=== PATIENT | female | born 1975 | race African-American/Black ===

== ENCOUNTER 2019-05-14 07:36 | Emergency (ER) | payer OTHER, SELFPAY ==
--- NOTE | ~2019-05-14 | XR_ITS ---
EXAMINATION: XR chest 2V DATE: 05/14/2019 08:43 INDICATION: Chest pain. TECHNIQUE: Frontal and lateral views of the chest were obtained. COMPARISON: Chest 2 views 11/17/2016 FINDINGS: The chest demonstrates clear lungs without pneumonia, pleural effusion, or pneumothorax. Th e heart size is normal. IMPRESSION: 1. No acute cardiopulmonary disease. Reviewed, dictated and finalized at location A. ARCHITECT
--- NOTE | ~2019-05-14 | CT_ITS ---
EXAMINATION: CTA chest PE protocol EXAM DATE: 05/14/2019 10:15 INDICATION: Shortness of breath with exertion. Chest pain. Heart skipping beats. Positive d-dimer. Ch est pain is left-sided under breast. TECHNIQUE: Spiral CTA of the chest (pulmonary arteries) was performed with 100 cc Omnipaque 350 intr avenous contrast injection. Images were acquired during the pulmonary arterial phase. Coronal maxi mum intensity projection 3D-reconstructions were created by the technologist on dedicated workstation . Axial, coronal and sagittal reformatted images were reviewed. The dose-length product (DLP) for t his examination was 509.67 mGy-cm. The exposure was tailored according to patient size (auto mA exp osure control), and iterative reconstruction (ASIR) was used as additional dose reduction technique. Comparison is made to prior examination from 01/29/2015. FINDINGS: Pulmonary arteries are well opacified and without intraluminal filling defects. No thora cic aortic dissection. The lungs are clear. There are no pleural or pericardial effusions. Trach eobronchial tree is patent. There is no mediastinal, hilar or axillary lymphadenopathy. There is no pneumothorax. Mild cardiomegaly. No evidence of coronary arterial calcification. Upper abdomen is unremarkable. There is thoracic spondylosis without osteoblastic or osteolytic lesions identifi ed. IMPRESSION: 1. Mild cardiomegaly. 2. No pulmonary emboli or acute findings. Reviewed, dictated and finalized at location B. TECHNICIAN
[2019-05-14 07:41] VITALS: BP 151/107; PULSE 79; RESP 14; O2SAT 100
[2019-05-14 07:47] VITALS: PULSE 69
--- NOTE | 2019-05-14 07:47 | ECG_ITS ---
Measurements Intervals [place] Rate: 69 P: 43 DE: 165 QRS: 37 QRSD: 99 T: 4 QT: 390 QTc: 419 Interpretive Statements SINUS RHYTHM WITH SINUS ARRHYTHMIA ST ELEVATION IN ANT/LAT LEADS- PROBABLY EARLY REPOLARIZATION BORDERLINE ST-T WAVE ABNORMALITY- INFERIOR LEADS BASELINE ARTIFACT- I, II, III, AVR, AVL, V1 BORDERLINE ECG Electronically Signed On 05-14-2019 11:46:57 CIGAR BANDER HAND by Med Grimaldo D.O.
[2019-05-14 08:06] LABS: Basophils Percent Auto 0.5 % (0.2-1.2); Eosinophils Absolute Auto 0.2 K/mm3 (0-0.3); Eosinophils Percent Auto 3.3 % (0-4.4); Hematocrit 36.3 % (37.0-47.0); Hemoglobin 11.5 g/dL (12.0-15.0); Immature Granulocyte Absolute 0.01 K/mm3 (0.00-0.031); Immature Granulocyte Percent A 0.2 % (0-0.5); Lymphocytes Absolute Auto 3.13 K/mm3 (0.9-3.2); Lymphocytes Percent Auto 49.2 % (18.3-44.2); Mean Corpuscular HGB Conc 31.7 g/dl (32-36); Mean Corpuscular Volume 97.8 fl (80-100); Mean Platelet Volume 10.1 fl (7.4-10.4); Monocytes Absolute Auto 0.5 K/mm3 (0.1-0.6); Monocytes Percent Auto 7.9 % (2.6-8.5); Neutrophils Absolute Auto 2.5 K/mm3 (1.3-6.7); Neutrophils Percent Auto 38.9 % (45.5-73.1); Platelet Count Result 326 k/mm3 (150-375); Red Blood Count 3.71 M/mm3 (4.2-5.4); Red Cell Distribution Width 12.2 % (11.5-14.5); White Blood Count 6.4 K/mm3 (4.5-10.0)
[2019-05-14] MEDS: ASPIRIN 81 MG CHEWABLE TABLET 324 MG PO (08:15)
[2019-05-14 08:16] LABS: INR 1.1; Prothrombin Time 13.4 Seconds (11.1-14.7)
[2019-05-14 08:17] LABS: Partial Thromboplastin Time 26.4 SECONDS (22.3-36.8)
[2019-05-14 08:20] LABS: Blood Urea Nitrogen 7 mg/dL (7-17); Calcium 9.1 mg/dL (8.4-10.2); Carbon Dioxide 27 mmol/L (22-30); Chloride 100 mmol/L (98-107); Estimated CRCL calculation 103 ml/min; Estimated Glomerular Filt Rate > 60; Glucose 115 mg/dL (65-105); Potassium 3.4 mmol/L (3.4-5.0); Sodium 136 mmol/L (137-145)
[2019-05-14 08:31] LABS: Troponin I < 0.012 ng/mL (0.000-0.034)
--- NOTE | 2019-05-14 08:38 | ECG_ITS ---
Measurements Intervals [place] Rate: 82 P: 56 [place]: 143 QRS: 31 QRSD: 98 T: 5 QT: 383 QTc: 448 Interpretive Statements SINUS RHYTHM DELAYED PRECORDIAL R/S TRANSITION ST ELEVATION IN HIGH LATERAL LEADS- PROBABLY EARLY REPOLARIZATION BORDERLINE ST-T WAVE ABNORMALITY- INFERIOR LEADS BASELINE ARTIFACT- I, II, III, AVR, AVL, AVF, V4 BORDERLINE ECG Electronically Signed On 05-14-2019 11:46:10 STRADDLE CARRIER OPERATOR by Med Grimaldo D.O.
--- NOTE | 2019-05-14 08:51 | ED.CHESTPAIN ---
HPI - Chest Pain General Chief Complaint: Chest Pain Stated Complaint: chest pain, heart skipping beats Time Seen by Provider: 05/14/19 08:37 Source: patient and RN notes reviewed Mode of arrival: ambulatory Limitations: no limitations History of Present Illness HPI narrative: Pt is a 43 y/o female with a Hx of HTN and DM, who presents to the ED with c/o lt sided chest pain starting last night. She notes that she has felt generally weak for the past several days. Pt states that she developed pain in the lt side of her chest last night. She notes that her pain radiates into her lt shoulder. Pt states that she experiences pain with breathing, but notes that her pain isn't aggravated upon taking a deep breath. She reports palpitations, dyspnea on exertion, and mild nausea accompanying her pain. She notes that her heart felt as though it was skipping beats. Pt also reports sinus congestion, but denies any fever, cough, vomiting, visual changes, LE edema, or LE pain. She states that she has no Hx of previous similar episodes, and notes that she is not currently taking any blood thinners. MD complaint: chest pain Onset (ago): day(s) (1) Prior episodes: No Pain location: left chest Pain radiation: left shoulder Associated symptoms: nausea, palpitations and other (dyspnea on exertion; generalized weakness; sinus congestion) Related Data Home Medications Medication Instructions Recorded Confirmed hydrochlorothiazide 25 mg tablet 25 mg PO DAILY 05/10/19 metformin 500 mg tablet 500 mg PO BID 05/10/19 atorvastatin 05/14/19 Allergies Allergy/AdvReac Type Severity Reaction Status Date / Time No Known Allergies Allergy Verified 04/24/19 20:57 Review of Systems Review of Systems: Narrative: CONSTITUTIONAL: Denies fever, chills, or sweats. ENT: Reports sinus congestion. Denies sore throat or otalgia. CARDIOVASCULAR: Reports lt sided chest pain radiating into lt shoulder. Reports palpitations. Denies edema. RESPIRATORY: Denies cough. Reports dyspnea on exertion. GASTROINTESTINAL: Denies abdominal pain, vomiting, or diarrhea. Reports nausea. NEUROLOGIC: Denies headache or numbness. Reports generalized weakness. All systems reviewed & are unremarkable except as noted in HPI and below PMFSH Family History Family History (Updated 08/20/18 @ 13:59 by DOCTOR UNKNOWN) Mother Hypertension Diabetes mellitus Family history of alcoholism Family history of Alzheimer's disease Social History Social History Smoking status: Never smoker Alcohol intake: never Gender identity (if verbalized by the patient): Female Comments PCP is Dr. Manuel. Exam Narrative: Exam Narrative: GENERAL: Well-appearing, well-nourished, and in no acute distress. HEAD: Normocephalic, atraumatic. EYES: PERRLA and EOMI. ENT: Nares clear, no rhinorrhea or epistaxis. Mucous membranes moist. NECK: Supple. CHEST: Clear to auscultation. No respiratory distress. No chest wall tenderness. HEART: Regular rate and rhythm. No murmur heard. Normal peripheral pulses. ABDOMEN: Soft, nontender, nondistended, normal active bowel sounds. EXTREMITIES: Normal range of motion. No edema. SKIN: Warm, dry, no rash. NEURO: No focal deficits. Alert and oriented. Course Course Emergency Course: Patient's EKG and labs are without significant high risk changes. Cardiac risk factors reviewed. Patient has a heart score of 2 based on labs and history. Patient is felt low risk for ACS and reasonable for further risk stratification testing as an outpatient. Pain was not sudden or maximal or onset without tearing or ripping quality. No other signs or symptoms to suggest aortic dissection. CTA was negative for pulmonary embolism. No pneumonia seen on evaluation today. Patient is felt to be a reasonable candidate for continued evaluation as an outpatient. Vital Signs Vital signs: Vital Signs Pulse Rate 79 05/14/19 07:41 Respiratory Rate
[2019-05-14 08:59] VITALS: BP 136/83; PULSE 75; RESP 16; O2SAT 100
[2019-05-14] MEDS: ONDANSETRON INJ 4 MG/2 ML VIAL IV PUSH (09:15)
[2019-05-14] MEDS: MORPHINE SULFATE 4 MG/ML INJ IV PUSH (09:16)
[2019-05-14] MEDS: ONDANSETRON INJ 4 MG/2 ML VIAL (09:30)
[2019-05-14 09:51] LABS: D Dimer 0.56 ug/mL (<0.48)
--- NOTE | 2019-05-14 10:13 | PC.NURSE ---
Patient in radiology at this time
[2019-05-14 10:37] VITALS: BP 125/80; PULSE 64; RESP 16; O2SAT 100
[2019-05-14 11:26] LABS: Troponin I < 0.012 ng/mL (0.000-0.034)
[2019-05-14 11:52] VITALS: BP 117/67; PULSE 74; RESP 17; TEMP 36.4; O2SAT 97
== END 2019-05-14 11:57 | disposition home or self-care (01) ==
PROVIDERS: Emergency Provider Emergency Medicine; PCP Internal Medicine
DX: I10 Essential (primary) hypertension (principal); E11.9 Type 2 diabetes mellitus without complications; R07.89 Other chest pain; Z79.84 Long term (current) use of oral hypoglycemic drugs; R94.31 Abnormal electrocardiogram [ECG] [EKG]
CPT/HCPCS: 36415; 71046; 71275; 80048; 84484; 85025; 85380; 85610; 85730; 93005; 96374; 96375; 99284; A9270; J2270; J2405; Q9967

== ENCOUNTER 2019-05-15 09:19 | Outpatient (CLI) | payer OTHER, SELFPAY ==
[2019-05-15 13:31] LABS: Immature Reticulocyte Fraction 9.7 % (3.0-15.9); Reticulocyte Hemoglobin Conten 35.7 pg (28.2-35.7); Reticulocyte Percent 1.67 % (0.7-4.3); Reticulocytes Absolute 0.06 B/L (32.2-175.7)
[2019-05-15 13:38] LABS: Iron 78 ug/dL (37-170)
[2019-05-15 13:39] LABS: Alanine Aminotransferase 58 U/L (4-35); Albumin Level 4.1 g/dL (3.5-5.1); Alkaline Phosphatase 86 U/L (38-126); Aspartate Amino Transferase 42 U/L (14-36); Bilirubin,Total 0.5 mg/dL (0.2-1.3); Lactate Dehydrogenase 577 U/L (313-618)
[2019-05-15 13:42] LABS: Hemoglobin A1C 5.9 % (<5.7)
[2019-05-15 13:48] LABS: Percent Iron Saturation 21 % (20-50)
[2019-05-15 14:10] LABS: Erythrocyte Sedimentation Rate 27 mm/hr (0-20)
[2019-05-15 18:22] LABS: Rheumatoid Factor < 8.6 IU/ML (<12)
[2019-05-15 20:32] LABS: Vitamin D 25 Hydroxy < 12.8 ng/mL
[2019-05-17 10:46] LABS: Anti Cyclic Citrullinated Pept <16 Units (<20)
[2019-05-17 12:59] LABS: CRP, High Sensitivity 1.6 mg/L (***)
== END 2019-05-15 09:20 | disposition home or self-care (01) ==
LOC: ANHWCLAB 09:25
PROVIDERS: PCP Internal Medicine; Visit Provider Internal Medicine
DX: R94.5 Abnormal results of liver function studies (principal); Z79.899 Other long term (current) drug therapy; D64.9 Anemia, unspecified; M25.561 Pain in right knee; M25.562 Pain in left knee; G89.29 Other chronic pain
CPT/HCPCS: 36415; 80076; 82306; 82607; 82728; 82746; 83036; 83540; 83550; 83615; 85046; 85652; 86038; 86141; 86200; 86430

== ENCOUNTER 2019-05-25 18:51 | Emergency (ER) | payer OTHER, SELFPAY ==
--- NOTE | ~2019-05-25 | XR_ITS ---
EXAMINATION: XR knee RT 3V DATE: 05/25/2019 19:32 INDICATION: Posterior right knee pain and swelling TECHNIQUE: Anteroposterior, oblique and crosstable lateral views of the right knee were obtained COMPARISON: 04/05/2019 FINDINGS: Alignment is normal. No fracture. No joint effusion/layering lipohemarthrosis. Soft tissues are unre markable. IMPRESSION: 1. Negative right knee radiographs. Reviewed, dictated and finalized at location A. WASHER
[2019-05-25 19:04] VITALS: BP 142/90; PULSE 81; RESP 17; TEMP 36.9; O2SAT 100
--- NOTE | 2019-05-25 19:26 | ED.LOWEXIN ---
HPI - Extremity Injury (Lower) General Chief Complaint: Extremity Injury, Lower <Myrna Bajwa PA-C - Last Filed: 05/25/19 20:48> Stated Complaint: rt leg pain and stiffness <ELIZ Carmichael Last Filed: 05/25/19 20:48> Source: patient <ELIZ Carmichael Last Filed: 05/25/19 20:48> Mode of arrival: wheelchair <ELIZ Carmichael Last Filed: 05/25/19 20:48> Limitations: no limitations <ELIZ Carmichael Last Filed: 05/25/19 20:48> History of Present Illness HPI Narrative: This is a 43 year old female that presents to the ER for right leg pain x 2 months. Reports pain in the back of her knee that feels like a pressure. Reports she has been seen here for this and by her PCP. Reports she has been taking [id number] pain medication with little relief. Reports decreased range of motion due to pain. Also reports some swelling. Denies fever, erythema, or numbness. <ELIZ Carmichael Last Filed: 05/25/19 20:48> Related Data Home Medications: Home Medications Medication Instructions Recorded Confirmed hydrochlorothiazide 25 mg tablet 25 mg PO DAILY 05/10/19 metformin 500 mg tablet 500 mg PO BID 05/10/19 atorvastatin 05/14/19 <Myrna Bajwa PA-C - Last Filed: 05/25/19 20:48> Allergies/Adverse Reactions: Allergies Allergy/AdvReac Type Severity Reaction Status Date / Time No Known Allergies Allergy Verified 05/25/19 19:19 <ELIZ Carmichael Last Filed: 05/25/19 20:48> Review of Systems Review of Systems: Narrative: CONSTITUTIONAL: Denies fever SKIN: Denies rash MUSCULOSKELETAL: Reports joint pain, and myalgia. NEUROLOGIC: Denies numbness <ELIZ Carmichael Last Filed: 05/25/19 20:48> All systems reviewed & are unremarkable except as noted in HPI and below <ELIZ Carmichael Last Filed: 05/25/19 20:48> PMFSH Family History Family History: Family History (Updated 08/20/18 @ 13:59 by DOCTOR UNKNOWN) Mother Hypertension Diabetes mellitus Family history of alcoholism Family history of Alzheimer's disease <Myrna Bajwa PA-C - Last Filed: 05/25/19 20:48> Social History Social History: Social History Smoking status: Never smoker Alcohol intake: never Gender identity (if verbalized by the patient): Female <Myrna Bajwa PA-C - Last Filed: 05/25/19 20:48> Exam Narrative: Exam Narrative: GENERAL: Well-appearing, obese, and in no acute distress. HEAD: Normocephalic, atraumatic. EYES: EOMI. EXTREMITIES: Normal range of motion. Mild swelling about the right knee. No erythema or warmth. Tender to palpation of the right calf. Normal sensation. Normal DP pulses SKIN: Warm, dry, no rash. NEURO: No focal deficits. Alert and oriented x3. PSYCH: Normal mood and affect <ELIZ Carmichael Last Filed: 05/25/19 20:48> Course Vital Signs Vital signs: Vital Signs Temperature 36.9 C 05/25/19 19:04 Pulse Rate 81 05/25/19 19:04 Respiratory Rate 17 05/25/19 19:04 Blood Pressure 142/90 H 05/25/19 19:04 Pulse Oximetry 100 05/25/19 19:04 Temperature 36.8 C 05/25/19 21:19 Pulse Rate 80 05/25/19 21:19 Respiratory Rate 18 05/25/19 21:19 Blood Pressure 132/78 05/25/19 21:19 Pulse Oximetry 98 05/25/19 21:19 <ELIZ Carmichael Last Filed: 05/25/19 20:48> Vital Signs Temperature 36.9 C 05/25/19 19:04 Pulse Rate 81 05/25/19 19:04 Respiratory Rate 17 05/25/19 19:04 Blood Pressure 142/90 H 05/25/19 19:04 Pulse Oximetry 100 05/25/19 19:04 Temperature 36.8 C 05/25/19 21:19 Pulse Rate 80 05/25/19 21:19 Respiratory Rate 18 05/25/19 21:19 Blood Pressure 132/78 05/25/19 21:19 Pulse Oximetry 98 05/25/19 21:19 <Anton Villanueva MD - Last Filed: 05/25/19 23:40> MDM - Extremity Injury (Lower) MDM Narrative Medical decision making narrative: Soumya
[2019-05-25 19:51] LABS: Basophils Percent Auto 0.5 % (0.2-1.2); Eosinophils Absolute Auto 0.3 K/mm3 (0-0.3); Eosinophils Percent Auto 3.4 % (0-4.4); Hematocrit 34.2 % (37.0-47.0); Immature Granulocyte Absolute 0.01 K/mm3 (0.00-0.031); Immature Granulocyte Percent A 0.1 % (0-0.5); Lymphocytes Absolute Auto 3.97 K/mm3 (0.9-3.2); Lymphocytes Percent Auto 53.4 % (18.3-44.2); Mean Corpuscular HGB Conc 32.2 g/dl (32-36); Mean Corpuscular Hemoglobin 30.6 pg (26-34); Mean Corpuscular Volume 95.3 fl (80-100); Monocytes Absolute Auto 0.6 K/mm3 (0.1-0.6); Monocytes Percent Auto 8.1 % (2.6-8.5); Neutrophils Absolute Auto 2.6 K/mm3 (1.3-6.7); Neutrophils Percent Auto 34.5 % (45.5-73.1); Platelet Count Result 370 k/mm3 (150-375); Red Blood Count 3.59 M/mm3 (4.2-5.4); White Blood Count 7.4 K/mm3 (4.5-10.0)
[2019-05-25] MEDS: KETOROLAC (*BKC) 60 MG/2 ML VIAL IM (19:51)
[2019-05-25 20:04] LABS: Blood Urea Nitrogen 9 mg/dL (7-17); Calcium 9.1 mg/dL (8.4-10.2); Carbon Dioxide 22 mmol/L (22-30); Chloride 107 mmol/L (98-107); Estimated CRCL calculation 90 ml/min; Estimated Glomerular Filt Rate > 60; Glucose 96 mg/dL (65-105); Potassium 3.6 mmol/L (3.4-5.0); Sodium 139 mmol/L (137-145)
[2019-05-25 20:14] LABS: Erythrocyte Sedimentation Rate 36 mm/hr (0-20)
[2019-05-25 20:30] LABS: CRP 0.5 mg/dL (<1.0)
--- NOTE | 2019-05-25 20:36 | PC.NURSE ---
PT refusing Lovenox, Pt told PA this information in the room.
[2019-05-25 21:19] VITALS: BP 132/78; PULSE 80; RESP 18; TEMP 36.8; O2SAT 98
== END 2019-05-25 21:21 | disposition home or self-care (01) ==
PROVIDERS: Physician Assistant; Emergency Provider Emergency Medicine; PCP Internal Medicine
DX: M25.561 Pain in right knee (principal)
CPT/HCPCS: 36415; 73562; 80048; 85025; 85380; 85652; 86140; 96372; 99283; J1885

== ENCOUNTER 2019-05-26 07:08 | Outpatient (CLI) | payer OTHER, SELFPAY ==
--- NOTE | ~2019-05-26 | US_ITS ---
US venous doppler LE RT DATE: 05/26/2019 08:01 INDICATION: Right lower extremity pain and swelling TECHNIQUE: Real-time imaging, color flow imaging and Doppler analysis of the right lower extremity ve ins COMPARISON: 11/19/2016 venous Doppler examination of right leg FINDINGS: There is an 11 x 20 x 9 mm popliteal cyst. The greater saphenous vein is patent. There is spontaneous and phasic flow and normal augmentation an d color flow signal and normal compression of the deep veins of the right lower extremity. IMPRESSION: No evidence of deep venous thrombosis of right lower extremity Small popliteal cyst Reviewed, dictated and finalized at Location A. Reviewed, dictated and finalized at location A. MATIC PRESSER
== END 2019-05-26 07:09 | disposition home or self-care (01) ==
PROVIDERS: PCP Internal Medicine; Visit Provider Internal Medicine
DX: M79.89 Other specified soft tissue disorders (principal); M79.661 Pain in right lower leg; M71.21 Synovial cyst of popliteal space [Baker], right knee
CPT/HCPCS: 93971

== ENCOUNTER 2019-06-09 07:05 | Outpatient (CLI) | payer OTHER, SELFPAY ==
--- NOTE | ~2019-06-09 | XR_ITS ---
XR knee RT min 4V 06/09/2019 08:00 INDICATION: Generalized knee pain PROCEDURE: 4 views right knee COMPARISON: 05/25/2019 FINDINGS: Fracture, dislocation or subluxation is not identified. No significant joint effusion. The soft tissues appear within normal limits. No foreign bodies are identified. IMPRESSION: 1: NO ACUTE BONE OR JOINT ABNORMALITY IDENTIFIED. Reviewed, dictated and finalized at location A. PLANT SUPERVISOR
--- NOTE | ~2019-06-09 | MR_ITS ---
EXAMINATION: MR knee RT wo con DATE: 06/09/2019 07:54 INDICATION: Right knee pain. TECHNIQUE: Magnetic resonance imaging (MRI) of the right knee was performed without intravenous contr ast. Sequences included axial PD-weighted FS FSE, coronal PD-weighted FSE and PD-weighted FS FSE, sag ittal PD-weighted FSE, and sagittal T2-weighted FS FSE. COMPARISON: Right knee radiographs 06/09/2019 FINDINGS: Medial compartment: Medial meniscus is normal. There is cartilage surface irregularity of tibial condyle. There is deep p artial thickness cartilage loss of femoral condyle involving the central articular surface. Lateral compartment: Lateral meniscus is normal. Lateral compartment cartilage is normal. Patellofemoral compartment: Patellar cartilage is normal. There is shallow partial-thickness cartilage loss of medial trochlea. Ligaments and tendons: The anterior and posterior cruciate ligaments are normal. Medial collateral ligament and lateral diana ateral ligament complex are normal. There is mild patellar tendinopathy. Fluid: There is a small knee joint effusion. There is a moderate-sized Valdez's cyst. There is edema in super olateral Hoffa's fat pad, which may be seen with impingement. IMPRESSION: 1. Moderate chondrosis of medial compartment and mild chondrosis of patellofemoral compartment. 2. Small knee joint effusion. 3. Moderate-sized Valdez's cyst. Reviewed, dictated and finalized at location A. NE PUBLISHER IMPRESSION: 1. Moderate chondrosis of medial compartment and mild chondrosis of patellofemo ral compartment. 2. Small knee joint effusion. 3. Moderate-sized Valdez's cyst.
== END 2019-06-09 07:06 | disposition home or self-care (01) ==
LOC: ANHIMG 07:09
PROVIDERS: PCP Internal Medicine; Visit Provider Orthopaedic Surgery
DX: M25.561 Pain in right knee (principal); M25.461 Effusion, right knee; M71.21 Synovial cyst of popliteal space [Baker], right knee
CPT/HCPCS: 73564; 73721

== ENCOUNTER 2019-06-27 13:57 | Emergency (ER) | payer OTHER, SELFPAY ==
[2019-06-27] VITALS (7 sets, daily range): BP systolic 150–161; BP diastolic 80–118; PULSE 66–74; RESP 2–18; TEMP 36.6; O2SAT 97–100
--- NOTE | 2019-06-27 16:45 | ED.GENADULT ---
HPI - General Adult General Chief complaint: Upper Respiratory Infection Stated complaint: headache/high bp Time Seen by Provider: 06/27/19 16:19 Source: patient Mode of arrival: ambulatory Limitations: no limitations History of Present Illness HPI narrative: Patient is a 43-year-old female who presents with hypertension patient noted that she has had recent changes in her blood pressure medication did not take her new medication until today patient on arrival noting that she had felt little short of breath today but that resolved denies any pain and is asymptomatic upon arrival resting comfortably in the room with normalizing blood pressures patient has no complaints and feels comfortable with going home Related Data Home Medications Medication Instructions Recorded Confirmed hydrochlorothiazide 25 mg tablet 25 mg PO DAILY 05/10/19 metformin 500 mg tablet 500 mg PO BID 05/10/19 atorvastatin 05/14/19 Allergies Allergy/AdvReac Type Severity Reaction Status Date / Time No Known Allergies Allergy Verified 06/27/19 15:25 Review of Systems Review of Systems: All systems reviewed & are unremarkable except as noted in HPI and below PMFSH Past Medical History Medical History High cholesterol HLD (hyperlipidemia) Hypertension Pre-diabetes Vision abnormalities Surgical History Surgical History H/O: hysterectomy History of reduction mammoplasty Social History Social History Smoking status: Never smoker Alcohol intake: current Gender identity (if verbalized by the patient): Female Exam Narrative: Exam Narrative: GENERAL: Well-appearing, well-nourished, and in no acute distress. HEAD: Normocephalic, atraumatic. EYES: PERRLA and EOMI. ENT: Nares clear, no rhinorrhea or epistaxis. Mucous membranes moist. NECK: Supple. No adenopathy or masses. CHEST: Clear to auscultation. No respiratory distress. No wheezes rales or rhonchi HEART: Regular rate and rhythm. No murmur heard. Normal peripheral pulses. EXTREMITIES: Normal range of motion. No edema. SKIN: Warm, dry, no rash. NEURO: No focal deficits. Alert and oriented x3. Cranial nerves II through XII grossly intact PSYCH: Normal mood and affect. Course Course Emergency Course: Patient in the room in no distress aware of case findings treatment plan and diagnosis agreeing to follow-up as directed or to return if symptoms worsen or concern Vital Signs Vital signs: Vital Signs Temperature 97.9 F 06/27/19 14:10 Pulse Rate 66 06/27/19 14:10 Respiratory Rate 16 06/27/19 14:10 Blood Pressure 159/118 H 06/27/19 14:10 Pulse Oximetry 100 06/27/19 14:10 Temperature 97.9 F 06/27/19 14:10 Pulse Rate 70 06/27/19 16:38 Respiratory Rate 18 06/27/19 16:38 Blood Pressure 150/80 H 06/27/19 16:38 Pulse Oximetry 100 06/27/19 16:38 Medical Decision Making MDM Narrative Medical decision making narrative: Patient in the room in no distress afebrile nontoxic-appearing requesting to be discharged asymptomatic no she will follow with her primary care Vital Signs Vital Signs: Vital Signs Temperature 97.9 F 06/27/19 14:10 Pulse Rate 66 06/27/19 14:10 Respiratory Rate 16 06/27/19 14:10 Blood Pressure 159/118 H 06/27/19 14:10 Pulse Oximetry 100 06/27/19 14:10 Temperature 97.9 F 06/27/19 14:10 Pulse Rate 70 06/27/19 16:38 Respiratory Rate 18 06/27/19 16:38 Blood Pressure 150/80 H 06/27/19 16:38 Pulse Oximetry 100 06/27/19 16:38 Discharge Plan Discharge Clinical Impression: Hypertension Patient Disposition: Home, Self-Care Condition: Stable Instructions: Antibiotic Form, Hypertension (ED) Additional Instructions: Follow up with your primary care doctor in 5-7 days for re-evaluation. Go to ER for worsening pain, visi
== END 2019-06-27 17:07 | disposition home or self-care (01) ==
PROVIDERS: Emergency Provider Emergency Medicine; PCP Internal Medicine
DX: I10 Essential (primary) hypertension (principal); E78.00 Pure hypercholesterolemia, unspecified; R73.03 Prediabetes
CPT/HCPCS: 99281

== ENCOUNTER 2019-07-12 08:41 | Outpatient (CLI) | payer OTHER, SELFPAY ==
[2019-07-12 09:00] LABS: Basophils Percent Auto 0.4 % (0.2-1.2); Eosinophils Absolute Auto 0.4 K/mm3 (0-0.3); Eosinophils Percent Auto 5.3 % (0-4.4); Hematocrit 36.6 % (37.0-47.0); Hemoglobin 12.1 g/dL (12.0-15.0); Immature Granulocyte Absolute 0.01 K/mm3 (0.00-0.031); Immature Granulocyte Percent A 0.1 % (0-0.5); Immature Reticulocyte Fraction 5.1 % (3.0-15.9); Lymphocytes Absolute Auto 3.88 K/mm3 (0.9-3.2); Lymphocytes Percent Auto 52.3 % (18.3-44.2); Mean Corpuscular HGB Conc 33.1 g/dl (32-36); Mean Corpuscular Hemoglobin 30.7 pg (26-34); Mean Corpuscular Volume 92.9 fl (80-100); Mean Platelet Volume 9.7 fl (7.4-10.4); Monocytes Absolute Auto 0.6 K/mm3 (0.1-0.6); Monocytes Percent Auto 7.8 % (2.6-8.5); Neutrophils Absolute Auto 2.5 K/mm3 (1.3-6.7); Neutrophils Percent Auto 34.1 % (45.5-73.1); Platelet Count Result 314 k/mm3 (150-375); Red Blood Count 3.94 M/mm3 (4.2-5.4); Red Cell Distribution Width 11.3 % (11.5-14.5); Reticulocyte Hemoglobin Conten 36.4 pg (28.2-35.7); Reticulocyte Percent 0.87 % (0.7-4.3); Reticulocytes Absolute 0.03 B/L (32.2-175.7); White Blood Count 7.4 K/mm3 (4.5-10.0)
[2019-07-12 11:35] LABS: Iron 109 ug/dL (37-170)
[2019-07-12 11:38] LABS: Alanine Aminotransferase 46 U/L (4-35); Albumin Level 4.7 g/dL (3.5-5.1); Alkaline Phosphatase 104 U/L (38-126); Aspartate Amino Transferase 40 U/L (14-36); Bilirubin,Total 0.2 mg/dL (0.2-1.3); Blood Urea Nitrogen 9 mg/dL (7-17); Calcium 9.8 mg/dL (8.4-10.2); Carbon Dioxide 26 mmol/L (22-30); Chloride 101 mmol/L (98-107); Estimated Glomerular Filt Rate > 60; Glucose 103 mg/dL (65-105); Lactate Dehydrogenase 421 U/L (313-618); Potassium 4.2 mmol/L (3.4-5.0); Sodium 138 mmol/L (137-145)
[2019-07-12 11:46] LABS: Percent Iron Saturation 29 % (20-50)
== END 2019-07-12 08:42 | disposition home or self-care (01) ==
PROVIDERS: PCP Internal Medicine; Visit Provider Internal Medicine Hematology & Oncology
DX: D64.9 Anemia, unspecified (principal)
CPT/HCPCS: 36415; 80053; 82607; 82728; 82746; 83540; 83550; 83615; 85025; 85046; 88184

== ENCOUNTER 2019-07-16 14:47 | Emergency (ER) | payer OTHER, SELFPAY ==
--- NOTE | ~2019-07-16 | XR_ITS ---
EXAMINATION: XR chest 1V portable EXAM DATE: 07/16/2019 16:03 INDICATION: Shortness of air, cough. TECHNIQUE: Frontal and lateral projections of the chest obtained and reviewed. Comparison is made to prior examination from 05/14/2019. FINDINGS: The lungs are clear. There are no pleural effusions. The cardiomediastinal silhouette is within normal limits. There is no pneumothorax suspected. The bones and soft tissues are unremarkab le. Elevated right hemidiaphragm, more than on prior study. There are no osseous abnormalities iden tified. IMPRESSION: Right hemidiaphragm more elevated than on prior study without evidence of adjacent airspa ce disease. Consider 3 month follow-up chest x-ray. Reviewed, dictated and finalized at location A. IMPRESSION: Right hemidiaphragm more elevated than on prior study without evide nce of adjacent airspace disease. Consider 3 month follow-up chest x-ray.
[2019-07-16 14:53] VITALS: BP 146/91; PULSE 97; RESP 20; TEMP 37.5; O2SAT 100
[2019-07-16 15:02] VITALS: O2SAT 100
--- NOTE | 2019-07-16 15:21 | ED.URI ---
HPI - URI/Sore Throat General Chief Complaint: Upper Respiratory Infection Stated Complaint: chest tight/sob Time Seen by Provider: 07/16/19 15:01 Source: patient Mode of arrival: ambulatory Limitations: no limitations History of Present Illness HPI Narrative: A 43 y/o female pt has presented to the ED with c/o chest tightness that feels funky for 3 days. She reports SOB, nausea, and a cough. She denies rhinorrhea, sore throat, ABD pain, or vomiting. Pt reports a H/O HTN, pre DM, and bronchitis. She denies a history of asthma. Pt also denies any H/O drinking, smoking, or drugs. Pt notes that her has had a cough and rhinorrhea. She denies any recent travel. 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 MD elicited complaint: other ( funky chest tightness) Pertinent past history: other (Bronchitis, HTN, pre DM) Onset (ago): day(s) (3) Context: sick contacts ( has a cough and rhinorrhea) Associated symptoms: cough, shortness of breath and nausea Related Data Home Medications Medication Instructions Recorded Confirmed hydrochlorothiazide 25 mg tablet 25 mg PO DAILY 05/10/19 metformin 500 mg tablet 500 mg PO BID 05/10/19 atorvastatin 05/14/19 Allergies Allergy/AdvReac Type Severity Reaction Status Date / Time No Known Allergies Allergy Verified 07/16/19 15:00 Review of Systems Review of Systems: All systems reviewed & are unremarkable except as noted in HPI and below ENT: Denies sore throat and Denies other (rhinorrhea) Cardiovascular: Cardiovascular: Reports other (chest tightness that feels funky ) Respiratory: Respiratory: Reports cough and Reports dyspnea Gastrointestinal: Gastrointestinal: Denies abdominal pain, Reports nausea and Denies vomiting PMFSH Past Medical History Medical History Allergic rhinitis Asthma Atypical chest pain Bakers cyst Essential hypertension Genital herpes GERD (gastroesophageal reflux disease) Hepatic steatosis High cholesterol HLD (hyperlipidemia) Hypertension Hypovitaminosis D IFG (impaired fasting glucose) Knee pain Lymphocytosis Pre-diabetes Vision abnormalities Surgical History Surgical History H/O tubal ligation H/O: hysterectomy History of reduction mammoplasty Family History Family History Mother Hypertension Diabetes mellitus Family history of alcoholism Family history of Alzheimer's disease Social History Social History (Updated 07/16/19 @ 15:40 by Medhat Alfonso) Smoking status: Never smoker Alcohol intake: current Substance use: never Gender identity (if verbalized by the patient): Female Exam Narrative: Exam Narrative: GENERAL: Well-appearing, well-nourished, and in no acute distress. HEAD: Normocephalic, atraumatic. CHEST: Scattered rhonchi. No respiratory distress. HEART: Regular rate and rhythm. Normal peripheral pulses. ABDOMEN: Soft, nontender, nondistended. EXTREMITIES: Normal range of motion. No edema. SKIN: Warm, dry, no rash. NEURO: Alert and oriented x3. PSYCH: Normal mood and affect. Course Course Emergency Course: Patient informed of results. No hypoxia. Will give albuterol prescription for home as well as a spacer and z-linus. Vital Signs Vital signs: Vital Signs Temperature 99.5 F 07/16/19 14:53 Pulse Rate 97 07/16/19 14:53 Respiratory Rate 20 07/16/19 14:53 Blood Pressure 146/91 H 07/16/19 14:53 Pulse Oximetry 100 07/16/19 14:53 Temperature 99.5 F 07/16/19 14:53 Pulse Rate 89 07/16/19 16:45 Respiratory Rate 18 07/16/19 16:45 Blood Pressure 128/80 07/16/19 16:45 Pulse Oximetry 99 07/16/19 16:45 MDM - URI/Sore Throat Lab Data Result diagrams: 07/16/19 15:41 07/16/19 15:41 Labs: Lab Results 07/16/19 07/16/19 Range/Units 15:41 15:41 WBC 8.3 (4.5-10.0) K/mm3 RBC 4.06 L (4.2-5.
[2019-07-16 15:50] LABS: Basophils Percent Auto 0.4 % (0.2-1.2); Eosinophils Absolute Auto 0.3 K/mm3 (0-0.3); Eosinophils Percent Auto 3.4 % (0-4.4); Hematocrit 38.4 % (37.0-47.0); Hemoglobin 12.3 g/dL (12.0-15.0); Immature Granulocyte Absolute 0.01 K/mm3 (0.00-0.031); Immature Granulocyte Percent A 0.1 % (0-0.5); Lymphocytes Absolute Auto 3.95 K/mm3 (0.9-3.2); Lymphocytes Percent Auto 47.8 % (18.3-44.2); Mean Corpuscular Hemoglobin 30.3 pg (26-34); Mean Corpuscular Volume 94.6 fl (80-100); Mean Platelet Volume 10.8 fl (7.4-10.4); Monocytes Absolute Auto 0.6 K/mm3 (0.1-0.6); Monocytes Percent Auto 7.4 % (2.6-8.5); Neutrophils Absolute Auto 3.4 K/mm3 (1.3-6.7); Neutrophils Percent Auto 40.9 % (45.5-73.1); Platelet Count Result 326 k/mm3 (150-375); Red Blood Count 4.06 M/mm3 (4.2-5.4); Red Cell Distribution Width 11.8 % (11.5-14.5); White Blood Count 8.3 K/mm3 (4.5-10.0)
[2019-07-16 16:05] LABS: Alanine Aminotransferase 53 U/L (4-35); Albumin Level 4.8 g/dL (3.5-5.1); Alkaline Phosphatase 94 U/L (38-126); Aspartate Amino Transferase 46 U/L (14-36); Bilirubin,Total 0.4 mg/dL (0.2-1.3); Blood Urea Nitrogen 10 mg/dL (7-17); Carbon Dioxide 26 mmol/L (22-30); Chloride 104 mmol/L (98-107); Estimated CRCL calculation 81 ml/min; Estimated Glomerular Filt Rate > 60; Glucose 93 mg/dL (65-105); Potassium 3.9 mmol/L (3.4-5.0); Sodium 140 mmol/L (137-145)
[2019-07-16 16:45] VITALS: BP 128/80; PULSE 89; RESP 18; O2SAT 99
[2019-07-16 17:37] VITALS: BP 117/83; PULSE 88; RESP 18; O2SAT 100
== END 2019-07-16 17:43 | disposition home or self-care (01) ==
PROVIDERS: Emergency Provider Emergency Medicine; PCP Internal Medicine
DX: J40 Bronchitis, not specified as acute or chronic (principal); I10 Essential (primary) hypertension; K21.9 Gastro-esophageal reflux disease without esophagitis; E78.00 Pure hypercholesterolemia, unspecified; E78.5 Hyperlipidemia, unspecified
CPT/HCPCS: 36415; 71045; 80053; 85025; 99283

== ENCOUNTER 2019-07-19 20:55 | Emergency (ER) | payer OTHER, SELFPAY ==
--- NOTE | ~2019-07-19 | XR_ITS ---
EXAMINATION: XR chest 1V portable INDICATION: Cough and shortness of breath TECHNIQUE: Portable AP chest at 2117 hours COMPARISON: 07/16/2019 FINDINGS: The lungs are free of acute opacities. There is no pleural effusion or pneumothorax. The ca rdiomediastinal silhouette is normal. The visualized bones and soft tissues are unremarkable. IMPRESSION: 1. No acute cardiopulmonary abnormality. Reviewed, dictated and finalized at location A.
[2019-07-19 21:01] VITALS: BP 144/98; PULSE 91; RESP 19; TEMP 37.1; O2SAT 98
--- NOTE | 2019-07-19 21:02 | ED.CHESTPAIN ---
HPI - Chest Pain General Chief Complaint: Chest Pain Stated Complaint: chest tightness Time Seen by Provider: 07/19/19 21:01 Source: patient and RN notes reviewed Mode of arrival: other Limitations: no limitations History of Present Illness HPI narrative: Pt is a 43 y/o female who presents to the ED with c/o constant chest tightness pressure pain that began about 4-5 days ago. Pt states her symptoms started when she was laying down. Pt denies being seen in another ED, but she notes that she called her PCP who recommended her to come to the ED for further evaluation. She notes that her has been sick with a cough and a fever for the past 4 days. Pt denies taking oral contraceptives. Pt denies any recent travels and any recent surgeries. Pt has a hx of diabetes mellitus and she states that she has not been reading her blood glucose levels because she has been sleeping more often. Pt also reports dyspnea, pain with inspiration, diaphoresis, nausea, chest congestion, cough, dysphagia, myalgia, and fatigue, but denies a fever, sore throat, leg pain, leg swelling, anxiety, and vomiting. MD complaint: chest pain Onset (ago): day(s) (4-5) Timing of current episode: constant Onset: during rest Pain location: other (generalized) Quality: tightness and other (pressure) Context: other (sick contacts) Associated symptoms: nausea, diaphoresis, dyspnea and other (pain with inspiration, chest congestion, cough, dysphagia, myalgia, fatigue) Related Data Home Medications Medication Instructions Recorded Confirmed hydrochlorothiazide 25 mg tablet 25 mg PO DAILY 05/10/19 metformin 500 mg tablet 500 mg PO BID 05/10/19 atorvastatin 05/14/19 Allergies Allergy/AdvReac Type Severity Reaction Status Date / Time No Known Allergies Allergy Verified 07/16/19 15:00 Review of Systems Review of Systems: Narrative: CONSTITUTIONAL: Reports fatigue. Denies fever. ENT: Reports dysphagia. Denies sore throat. CARDIOVASCULAR: Reports chest tightness pressure pain, and diaphoresis. Denies leg swelling. RESPIRATORY: Reports dyspnea, pain with inspiration, chest congestion, and cough. GASTROINTESTINAL: Reports nausea. Denies vomiting. MUSCULOSKELETAL: Reports myalgia. Denies leg pain. PSYCHIATRIC: Denies anxiety. All systems reviewed & are unremarkable except as noted in HPI and below [facility] Social History Social History (Updated 07/16/19 @ 15:40 by Medhat Alfonso) Smoking status: Never smoker Alcohol intake: current Substance use: never Gender identity (if verbalized by the patient): Female Exam Narrative: Exam Narrative: CONSTITUTIONAL: Awake, alert, conservant EYES: Normocephalic, atraumatic. ENT: EOMI, conjunctiva clear CARDIOVASCULAR: Nares patent. Mucous membranes moist. + Chest wall tenderness. No crepitus. NECK: Full range of motion RESPIRATORY: No respiratory distress, speaking in full sentences, no tachypnea HEART: Regular rate ABDOMEN: Non distended, non tender EXTREMITIES: Normal range of motion. No edema SKIN: Warm, dry, no rash. NEUROLOGIC: No focal deficits. Alert and oriented x3. Course Consultations Consultation #1: Discussed case with Dr. Manuel (PCP). Agrees with workup and will see in office next week. Date: 07/19/19 Time: 22:17 Vital Signs Vital signs: Vital Signs Temperature 37.1 C 07/19/19 21:01 Pulse Rate 91 07/19/19 21:01 Respiratory Rate 19 07/19/19 21:01 Blood Pressure 144/98 H 07/19/19 21:01 Pulse Oximetry 98 07/19/19 21:01 Temperature 36.8 C 07/19/19 22:35 Pulse Rate 84 07/19/19 22:35 Respiratory Rate 19 07/19/19 22:35 Blood Pressure 135/86 07/19/19 22:35 Pulse Oximetry 100 07/19/19 22:35 MDM - Chest Pain MDM Narrative Medical decision making narrative: Patient's EKG and labs are without significant high risk changes. Cardiac risk factors reviewed. Patient is felt low risk for ACS and reasonable for further risk stratification testing as an outpatient. Pain was no
--- NOTE | 2019-07-19 21:03 | ECG_ITS ---
Measurements Intervals [place] Rate: 87 P: 52 CA: 145 QRS: 21 QRSD: 92 T: -2 QT: 371 QTc: 446 Interpretive Statements SINUS RHYTHM DELAYED PRECORDIAL R/S TRANSITION VOLTAGE CRITERIA FOR LVH MINIMAL Q WAVES- LATERAL LEADS BORDERLINE T WAVE ABNORMALITY- INFERIOR LEADS BASELINE WANDER- V2 BORDERLINE ECG Electronically Signed On 07-20-2019 7:59:57 CDT by Med Grimaldo D.O.
[2019-07-19] MEDS: ACETAMINOPHEN 500 MG TABLET 1000 MG PO (21:23)
[2019-07-19] MEDS: ONDANSETRON INJ 4 MG/2 ML VIAL IV PUSH (21:24)
[2019-07-19] MEDS: SODIUM CHLORIDE 0.9% IV 500 ML 999 ML IV CONT (21:24)
[2019-07-19 21:36] LABS: Basophils Absolute Auto 0.1 K/mm3 (0.0-0.1); Basophils Percent Auto 0.5 % (0.2-1.2); Eosinophils Absolute Auto 0.4 K/mm3 (0-0.3); Hematocrit 34.9 % (37.0-47.0); Hemoglobin 11.3 g/dL (12.0-15.0); Immature Granulocyte Absolute 0.02 K/mm3 (0.00-0.031); Immature Granulocyte Percent A 0.2 % (0-0.5); Lymphocytes Absolute Auto 4.58 K/mm3 (0.9-3.2); Lymphocytes Percent Auto 47.8 % (18.3-44.2); Mean Corpuscular HGB Conc 32.4 g/dl (32-36); Mean Corpuscular Hemoglobin 30.1 pg (26-34); Mean Corpuscular Volume 92.8 fl (80-100); Monocytes Absolute Auto 0.7 K/mm3 (0.1-0.6); Monocytes Percent Auto 6.8 % (2.6-8.5); Neutrophils Absolute Auto 3.9 K/mm3 (1.3-6.7); Neutrophils Percent Auto 40.7 % (45.5-73.1); Platelet Count Result 317 k/mm3 (150-375); Red Blood Count 3.76 M/mm3 (4.2-5.4); Red Cell Distribution Width 11.7 % (11.5-14.5); White Blood Count 9.6 K/mm3 (4.5-10.0)
[2019-07-19 21:54] LABS: Add Urine Microscopic? YES; Appearance Urine Clear (Clear); Bacteria Urine Trace /hpf; Bilirubin Urine Negative (Negative); Blood Urine Negative (Negative); Color Urine Yellow (Yellow); Glucose Urine UA Negative (Negative); Ketones Urine Negative (Negative); Leukocyte Esterase Ur Negative LEU/UL (Negative); Mucus Urine Rare /lpf; Nitrate Urine Negative (Negative); Protein Urine Negative (Negative); RBC Urine 0-2 /hpf (0-2); Specific Grav Ur 1.025 (1.001-1.035); Squamous Epithelial Cell Urine Rare /hpf (Few); Urobilinogen Urine Negative mg/dL (<2.0); WBC Urine 0-3 /hpf
[2019-07-19 21:59] LABS: Prothrombin Time 12.5 Seconds (11.1-14.7)
[2019-07-19 22:00] LABS: Partial Thromboplastin Time 27.4 SECONDS (22.3-36.8)
[2019-07-19 22:01] LABS: Alanine Aminotransferase 56 U/L (4-35); Albumin Level 4.4 g/dL (3.5-5.1); Alkaline Phosphatase 99 U/L (38-126); Aspartate Amino Transferase 47 U/L (14-36); Bilirubin,Total 0.2 mg/dL (0.2-1.3); Blood Urea Nitrogen 12 mg/dL (7-17); CRP < 0.5 mg/dL (<1.0); Carbon Dioxide 27 mmol/L (22-30); Chloride 103 mmol/L (98-107); Estimated CRCL calculation 91 ml/min; Estimated Glomerular Filt Rate > 60; Glucose 97 mg/dL (65-105); Lactate Dehydrogenase 427 U/L (313-618); Lipase 80 U/L (23-300); Sodium 138 mmol/L (137-145)
[2019-07-19 22:07] LABS: NT Pro B Type Natriuretic Pept 34 PG/ML (5-100); Troponin I < 0.012 ng/mL (0.000-0.034)
[2019-07-19 22:35] VITALS: BP 135/86; PULSE 84; RESP 19; TEMP 36.8; O2SAT 100
[2019-07-19 23:13] LABS: Potassium 4.1 mmol/L (3.4-5.0)
== END 2019-07-19 22:37 | disposition home or self-care (01) ==
PROVIDERS: Emergency Provider Emergency Medicine; PCP Internal Medicine
DX: J06.9 Acute upper respiratory infection, unspecified (principal); Z20.828 Contact with and (suspected) exposure to other viral communicable diseases; R94.31 Abnormal electrocardiogram [ECG] [EKG]
CPT/HCPCS: 36415; 71045; 80053; 81001; 81025; 83615; 83690; 83880; 84484; 85025; 85610; 85730; 86140; 87804; 87880; 93005; 96361; 96374; 99284; A9270; J2405; J7040

== ENCOUNTER 2019-07-29 08:17 | Outpatient (CLI) | payer OTHER, SELFPAY ==
--- NOTE | ~2019-07-29 | MM_ITS ---
EXAMINATION: MM screening laina BI w nancie HISTORY: Screening mammogram TECHNIQUE: Craniocaudal and mediolateral oblique 3-D tomosynthesis images were obtained and synthetic 2-D images were generated. CAD analysis was submitted and interpreted. COMPARISON: Comparison to multiple prior studies sequentially, with oldest reviewed study dated 08/04. BREAST PARENCHYMAL COMPOSITION: There are scattered areas of fibroglandular density. FINDINGS: There are surgical changes consistent with breast reduction surgery. There are developing c alcifications. Nonspecific calcifications are present in the right breast. There is no mammographic e vidence for malignancy in the left breast. IMPRESSION: 1. Developing right breast calcifications, nonspecific. 2. Magnification views are recommended. BI-RADS Category 0: Incomplete: Needs additional imaging evaluation. Reviewed, dictated and finalized at location A.
== END 2019-07-29 08:18 | disposition home or self-care (01) ==
LOC: ANHIMG 08:19
PROVIDERS: PCP Internal Medicine; Visit Provider Obstetrics & Gynecology
DX: Z12.31 Encounter for screening mammogram for malignant neoplasm of breast (principal); R92.8 Other abnormal and inconclusive findings on diagnostic imaging of breast
CPT/HCPCS: 77063; 77067

== ENCOUNTER 2019-09-27 17:20 | Emergency (ER) | payer OTHER, SELFPAY ==
--- NOTE | ~2019-09-27 | XR_ITS ---
EXAMINATION: XR foot RT min 3V DATE: 09/27/2019 17:56 INDICATION: Right heel pain. TECHNIQUE: 4 views of right foot were obtained. COMPARISON: None. FINDINGS: There is moderate hallux valgus. No fracture. There is mild osteoarthritis of first metatar sophalangeal joint. IMPRESSION: 1. Moderate hallux valgus. 2. Mild osteoarthritis of first metatarsophalangeal joint. Reviewed, dictated and finalized at location A.
--- NOTE | ~2019-09-27 | XR_ITS ---
EXAMINATION: XR ankle RT min 3V DATE: 09/27/2019 17:55 INDICATION: Right ankle pain. TECHNIQUE: 4 views of right ankle were obtained. COMPARISON: None. FINDINGS: Bone alignment is normal. No fracture. Joint spaces are well maintained. There is an enthes ophyte at posterior aspect of calcaneal tuberosity. There is ankle soft tissue swelling. IMPRESSION: 1. No fracture. Reviewed, dictated and finalized at location A. IMPRESSION: 1. No fracture.
--- NOTE | 2019-09-27 17:23 | ED.GENADULT ---
HPI - General Adult General Chief complaint: Extremity Injury, Lower Stated complaint: right ankle Time Seen by Provider: 09/27/19 17:36 Source: patient Mode of arrival: ambulatory Limitations: no limitations History of Present Illness HPI narrative: 43-year-old female patient presents to the [facility] with complaints of right ankle pain. 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 Patient denies taking thing for pain. Patient states she was not even able to get up by herself or drive her work truck back after the incident. Patient states that her toes do feel little numb. Related Data Home Medications Medication Instructions Recorded Confirmed hydrochlorothiazide 25 mg tablet 25 mg PO DAILY 05/10/19 metformin 500 mg tablet 500 mg PO BID 05/10/19 atorvastatin 20 mg tablet 20 mg PO DAILY 09/12/19 Allergies Allergy/AdvReac Type Severity Reaction Status Date / Time No Known Allergies Allergy Verified 09/12/19 08:50 Review of Systems Review of Systems: Narrative: CONSTITUTIONAL: Denies fever, chills, or sweats. EYES: Denies visual changes, redness, or discharge. ENT: Denies rhinorrhea, congestion, sore throat, or otalgia. CARDIOVASCULAR: Denies chest pain, palpitations, or edema. RESPIRATORY: Denies cough or dyspnea. GASTROINTESTINAL: Denies abdominal pain, nausea, vomiting, or diarrhea. GENITOURINARY: Denies dysuria or hematuria. SKIN: Denies rash or itching. MUSCULOSKELETAL: Denies back pain, joint pain, or myalgia. Positive right foot and ankle pain NEUROLOGIC: Denies headache, numbness, or weakness. PSYCHIATRIC: Denies anxiety or depression. REPLACED BY [facility] Past Medical History Medical History Allergic rhinitis Asthma Atypical chest pain Bakers cyst Essential hypertension Genital herpes GERD (gastroesophageal reflux disease) Hepatic steatosis High cholesterol HLD (hyperlipidemia) Hypertension Hypovitaminosis D IFG (impaired fasting glucose) Knee pain Lymphocytosis Pre-diabetes Vision abnormalities Surgical History Surgical History H/O tubal ligation H/O: hysterectomy History of reduction mammoplasty Family History Family History Mother Hypertension Diabetes mellitus Family history of alcoholism Family history of Alzheimer's disease Social History Social History Smoking status: Never smoker Alcohol intake: current Substance use: never Gender identity (if verbalized by the patient): Female Comments At the time of my signature I agree with nursing past medical history, surgical, social, and family history. There is no relevant family history pertinent to the presenting complaint. Exam Narrative: Exam Narrative: GENERAL: Well-appearing, well-nourished, and in no acute distress. HEAD: Normocephalic, atraumatic. EYES: PERRLA and EOMI. ENT: Nares clear, no rhinorrhea or epistaxis. Mucous membranes moist. NECK: Supple. No lymphadenopathy CHEST: Clear to auscultation. No respiratory distress. HEART: Regular rate and rhythm. No murmur heard. Normal peripheral pulses. ABDOMEN: Soft, nontender, nondistended, normal active bowel sounds. EXTREMITIES: Patient is unable to bear weight and ambulate on right foot. The R ankle is with obvious asymmetry when compared to the L ankle. Patient has limited flex/extend, invert/claribel. Patient has pretty significant swelling over the lateral malleolus as well as some swelling to the medial side below the medial malleolus into the sole area. Bony tenderness to palpation over the lateral malleolus. No anterior talofibular ligament, positive posterior talofibular ligament, calcaneofibular ligament nontender and
[2019-09-27 17:31] VITALS: BP 113/75; PULSE 94; RESP 20; TEMP 36.8; O2SAT 98
[2019-09-27] MEDS: ACETAMINOPHEN 500 MG TABLET 1000 MG PO (18:07)
== END 2019-09-27 18:19 | disposition home or self-care (01) ==
PROVIDERS: Emergency Provider Nurse Practitioner Family; PCP Internal Medicine
DX: S93.401A Sprain of unspecified ligament of right ankle, initial encounter (principal); I10 Essential (primary) hypertension; E78.5 Hyperlipidemia, unspecified; W18.49XA Other slipping, tripping and stumbling without falling, initial encounter
CPT/HCPCS: 73610; 73630; 99213; A9270; G0463

== ENCOUNTER 2019-10-24 09:00 | Outpatient (RCR) | payer OTHER, SELFPAY ==
--- NOTE | 2019-10-11 09:51 | PTOPEVAL ---
PHYSICAL THERAPY EVALUATION AND PLAN OF CARE 10-11-2019 The PT evaluation was completed for the diagnosis of R ankle sprain, s/p fall. Her plan of treatment is scheduled for 2x/week for 4 weeks. Thank you for referring Johanna Dominguez to [facility]. Please review, sign, date and return this plan of care KRISHNA. I agree with and certify that the following plan of care is medically necessary. Referring Physician Date Attending Provider: Anthony Manuel MD *PT Outpatient Evaluation Start: 10/11/19 08:35 Document 10/11/19 08:40 MARIE (Rec: 10/11/19 09:46 MARIE [id number]) Therapy Assessment Status Assessment Status Assessment Status Evaluation Outpatient Past Medical History Past Medical History Source of Past Medical History Patient Neurological History Hx Seizures Yes: as child, none since Cardiovascular History Hx Hypercholesterolemia Yes Hx Hypertension Yes: meds Respiratory History Hx Respiratory Disorders No Significant History Gastrointestinal History Hx Gastrointestinal Disorders No Significant History Genitourinary History Hx Genitourinary Disorders No Significant History Musculoskeletal History Hx Other Musculoskeletal Disorders Yes: B knee pain R > L; have been to ortho dr about Hematological History Hx Hematological Disorders No Significant History Endocrine History Hx Diabetes Yes: meds control HEENT History Hx HEENT Disorders No Significant History Integumentary History Hx Skin Disorders No Significant History Reproductive History Hx Hysterectomy Yes Psychosocial History Hx Psychiatric Disorders No Significant History Pain History History of Any Previous or Ongoing No Significant History Instance of Pain Anesthesia History Hx Anesthesia Reactions No Significant History Other History Hx Other Medical Conditions Yes: stated falls alot, kinee pain and ankles weak Hx Other Surgeries Yes: breast reduction Evaluation Information Problem Diagnosis R ankle sprain Onset 09-27-2019 Subjective 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
--- NOTE | 2019-10-16 15:44 | PCPTNOTE ---
pt called and canceled today's appt due to conflicting with another appt ;
--- NOTE | 2019-10-29 11:21 | PCPTNOTE ---
pt no showed for today's appointment.
--- NOTE | 2019-10-31 11:21 | PCPTNOTE ---
Patient did not show up for scheduled appointment this date.
--- NOTE | 2019-11-04 11:57 | PCPTNOTE ---
Pt no showed for today's appointment. Contacted Pt. Pt is not feeling well and will not make it to her appointment on 11/07 either due to being quarantined. Pt will call when her COVID test results come back and when she is feeling better and able to come again.
--- NOTE | 2019-11-29 13:13 | PCPTNOTE ---
PHYSICAL THERAPY DISCHARGE 11-29-2019 Attending Provider: Anthony Manuel MD Patient:Johanna Dominguez Date of :1975 Ms. Dominguez has not returned for any further treatments since 10/24/2019, therefore she will be discharged at this time. She had received 4 PT sessions, from October 10 to October 23 for the diagnosis of R ankle sprain. She then stopped attending PT; the goals were not assessed. Thank you for referring this patient to [facility]. Please review, sign, date and return this discharge summary KRISHNA. I have been updated about the patient's current status and I agree with discharge from the above service at this time. Referring Physician Date
== END 2019-12-02 14:33 | disposition home or self-care (01) ==
LOC: ANHPT 09:00
PROVIDERS: PCP Internal Medicine; Visit Provider Internal Medicine
DX: S93.409D Sprain of unspecified ligament of unspecified ankle, subsequent encounter (principal)
CPT/HCPCS: 97110; 97140; 97161

== ENCOUNTER 2019-11-13 23:50 | Emergency (ER) | payer OTHER, SELFPAY ==
[2019-11-14 00:08] VITALS: BP 137/93; PULSE 80; RESP 18; O2SAT 100
--- NOTE | 2019-11-14 00:26 | ED.EAR ---
HPI - Ear Problem General Chief complaint: Ear Stated complaint: right ear pain Time Seen by Provider: 11/14/19 00:11 Source: patient Mode of arrival: ambulatory Limitations: no limitations History of Present Illness HPI Narrative: This patient is a 43 year old female who presents for evaluation of right ear pain and right sore throat. Patient reports intermittent right ear pain for 2- 3 days. She also reports feeling like right side of her throat is swollen. She denies fever or chills. She took aleve 3 hours ago. MD Complaint: ear pain Location: right ear Related Data Home Medications Medication Instructions Recorded Confirmed hydrochlorothiazide 25 mg tablet 25 mg PO DAILY 05/10/19 11/14/19 metformin 500 mg tablet 500 mg PO BID 05/10/19 11/14/19 atorvastatin 20 mg tablet 20 mg PO DAILY 09/12/19 11/14/19 Allergies Allergy/AdvReac Type Severity Reaction Status Date / Time No Known Allergies Allergy Verified 10/02/19 10:19 Review of Systems Review of Systems: All systems reviewed & are unremarkable except as noted in HPI and below Constitutional: Constitutional: Denies chills and Denies fever(s) ENT: Denies dizziness and Reports sore throat PMFSH Past Medical History Medical History Allergic rhinitis Asthma Atypical chest pain Bakers cyst Essential hypertension Genital herpes GERD (gastroesophageal reflux disease) Hepatic steatosis High cholesterol HLD (hyperlipidemia) Hypertension Hypovitaminosis D IFG (impaired fasting glucose) Knee pain Lymphocytosis Pre-diabetes Vision abnormalities Social History Social History Smoking status: Never smoker Alcohol intake: current Substance use: never Gender identity (if verbalized by the patient): Female Exam Const: General: no acute distress and alert Orientation/consciousness: patient oriented x3 HENMT: Head: normocephalic and atraumatic Ears: external ears normal and TM's normal bilaterally General nose exam: Normal nares present and No nasal polyps present Face and sinus: sinuses nontender and face symmetric Mouth: Yes lip normal and Yes moist mucous membranes Throat: uvula midline and posterior oropharynx abnormal erythema Eyes: EOM: EOMs intact bilaterally Chest: Chest palpation & inspection: normal inspection of the chest Resp: Effort & Inspection: normal respiratory effort and no retractions Auscultation: clear to auscultation bilaterally Course Reevaluation(s) Reevaluation #1: I discussed with patient she has mild erythema to tonsills mild enlargement bilateral. No sign of abscess. Date: 11/14/19 Time: 01:48 Vital Signs Vital signs: Vital Signs Pulse Rate 80 11/14/19 00:08 Respiratory Rate 18 11/14/19 00:08 Blood Pressure 137/93 H 11/14/19 00:08 Pulse Oximetry 100 11/14/19 00:08 Pulse Rate 81 11/14/19 01:57 Respiratory Rate 16 11/14/19 01:57 Blood Pressure 129/88 11/14/19 01:57 Pulse Oximetry 98 11/14/19 01:57 Medical Decision Making Vital Signs Vital Signs: Vital Signs Pulse Rate 80 11/14/19 00:08 Respiratory Rate 18 11/14/19 00:08 Blood Pressure 137/93 H 11/14/19 00:08 Pulse Oximetry 100 11/14/19 00:08 Pulse Rate 81 11/14/19 01:57 Respiratory Rate 16 11/14/19 01:57 Blood Pressure 129/88 11/14/19 01:57 Pulse Oximetry 98 11/14/19 01:57 Lab Data Labs: Strep Screen Presumptive Negative *(Reference Range: Negative)* Discharge Plan Discharge Clinical Impression: Sore throat Patient Disposition: Home, Self-Care Condition: Stable Instructions: Antibiotic Form, Tonsillitis (ED) Additional Instructions: Continue to take aleve for your pain. Take antibiotics. REturn if symptoms worsen. Prescriptions: New azithromycin 250 mg tablet See Rx Instructions .ROUTE .COMPLEX Qty: 6
[2019-11-14] MEDS: KETOROLAC (*BKC) 60 MG/2 ML VIAL IM (00:59)
[2019-11-14 01:57] VITALS: BP 129/88; PULSE 81; RESP 16; O2SAT 98
== END 2019-11-14 01:59 | disposition home or self-care (01) ==
PROVIDERS: Emergency Provider General Practice; PCP Internal Medicine
DX: J02.9 Acute pharyngitis, unspecified (principal)
CPT/HCPCS: 87081; 87880; 96372; 99284; J1100; J1885

== ENCOUNTER 2020-02-13 12:10 | Outpatient (CLI) | payer OTHER, SELFPAY ==
--- NOTE | ~2020-02-13 | MM_ITS ---
EXAMINATION: MM diagnostic laina RT w nancie HISTORY: Indeterminate right breast calcifications on screening mammogram, history of reduction mammo plasty TECHNIQUE: Additional 3-D tomosynthesis images of the right breast were performed and synthetic 2-D i mages were generated. CAD analysis was submitted and interpreted. COMPARISON: 07/29/2019, 08/17/2016, 08/04/2016 BREAST PARENCHYMAL COMPOSITION: There are scattered areas of fibroglandular density. FINDINGS: There are calcifications in the right breast which have a dystrophic appearance, most consi stent with sequela of reduction mammoplasty. An area of architectural distortion is present in the sl ightly upper, central breast at the 12:00 location 8 cm from the nipple. IMPRESSION: 1. Right breast architectural distortion, likely related to reduction mammoplasty. 2. Recommend 6 month follow-up right diagnostic mammogram and possible ultrasound. BI-RADS category 3, probably benign findings. Reviewed, dictated and finalized at location A. IMPRESSION: 1. Right breast architectural distortion, likely related to reduction mammoplas ty. 2. Recommend 6 month follow-up right diagnostic mammogram and possible ultrasou nd. BI-RADS category 3, probably benign findings.
== END 2020-02-13 12:11 | disposition home or self-care (01) ==
LOC: ANHIMG 12:12
PROVIDERS: PCP Internal Medicine; Visit Provider Surgery Plastic and Reconstructive Surgery
DX: N64.89 Other specified disorders of breast (principal); R92.8 Other abnormal and inconclusive findings on diagnostic imaging of breast
CPT/HCPCS: 77061; 77065; G0279

== ENCOUNTER 2020-05-22 06:29 | Emergency (ER) | payer OTHER, SELFPAY ==
[2020-05-22 06:37] VITALS: BP 125/88; PULSE 93; RESP 16; TEMP 36.7; O2SAT 100
--- NOTE | 2020-05-22 07:03 | ED.ABDPAIN ---
HPI - Abdominal Pain General Chief Complaint: Abdominal Pain Stated Complaint: L Flank pain, COVID positive 2/2, N/V Time Seen by Provider: 05/22/20 06:59 History of Present Illness HPI narrative: 44 yo feamle w/ h/o DM, HTN presents to the ED for left flank/chest pain. Pain over the anterior lower ribs on the left side since about midnight. Radiates into the back. Worse with moving or breathing. Additionally she has nausea. She feels like she is urinating more. No fever, cough, SOB, vomiting. Related Data Home Medications Medication Instructions Recorded Confirmed metformin 500 mg tablet 500 mg PO BID 05/10/19 05/08/20 atorvastatin 20 mg tablet 20 mg PO DAILY 09/12/19 05/08/20 Allergies Allergy/AdvReac Type Severity Reaction Status Date / Time No Known Allergies Allergy Verified 01/01/20 10:11 Review of Systems Review of Systems: All systems reviewed & are unremarkable except as noted in HPI and below Constitutional: Constitutional: Denies chills, Reports fatigue and Denies fever(s) Eyes: Eyes: Reports no additional eye complaints Cardiovascular: Cardiovascular: Reports chest pain and Denies radiating jaw, neck or arm pain Respiratory: Respiratory: Denies cough and Denies dyspnea Gastrointestinal: Gastrointestinal: Reports diarrhea, Reports nausea and Denies vomiting Genitourinary: Genitourinary: Denies hematuria, Reports nocturia and Denies dysuria Musculoskeletal: Musculoskeletal: Reports back pain Neurologic: Denies confusion and Reports dizziness PMFSH Past Medical History Medical History Allergic rhinitis Asthma Atypical chest pain Bakers cyst Essential hypertension Genital herpes GERD (gastroesophageal reflux disease) Hepatic steatosis High cholesterol HLD (hyperlipidemia) Hypertension Hypovitaminosis D IFG (impaired fasting glucose) Knee pain Lymphocytosis Pre-diabetes Vision abnormalities Surgical History Surgical History H/O tubal ligation H/O: hysterectomy History of reduction mammoplasty Family History Family History Mother Hypertension Diabetes mellitus Family history of alcoholism Family history of Alzheimer's disease Social History Social History Smoking status: Never smoker Alcohol intake: current Substance use: never Gender identity (if verbalized by the patient): Female Exam Const: General: no acute distress and alert Nutritional Appearance: well nourished Orientation/consciousness: patient oriented x3 HENMT: Head: normal to inspection Neck: Neck: normal visual inspection Chest: Chest palpation & inspection: tenderness rib (left anterior lower) Resp: Effort & Inspection: normal respiratory effort Auscultation: clear to auscultation bilaterally Cardio: Rate: regular rate Rhythm: regular rhythm GI: Inspection: non-distended GI Palp: Yes Soft to palpation and No Tenderness to palpation present (GI) Skin: General skin exam: normal color Neuro: General: patient oriented x3, moves all extremities, no focal motor deficits and CN's II-XI intact bilaterally Gait exam (Neuro): Normal gait present Extrem: General: normal to inspection and no edema Psych: Appearance: grossly normal Mental Status: mental status grossly normal Course Vital Signs Vital signs: Vital Signs Temperature 36.7 C 05/22/20 06:37 Pulse Rate 93 05/22/20 06:37 Respiratory Rate 16 05/22/20 06:37 Blood Pressure 125/88 05/22/20 06:37 Pulse Oximetry 100 05/22/20 06:37 Temperature 36.7 C 05/22/20 06:37 Pulse Rate 75 05/22/20 10:21 Respiratory Rate 18 05/22/20 10:21 Blood Pressure 117/76 05/22/20 10:21 Pulse Oximetry 100 05/22/20 10:21 MDM - Abdominal Pain Differential Diagnosis Differential diagnosis: Lik
[2020-05-22 07:06] VITALS: BP 110/72; PULSE 80; RESP 20; O2SAT 100
[2020-05-22] MEDS: ONDANSETRON INJ 4 MG/2 ML VIAL IV PUSH (07:33)
[2020-05-22] MEDS: KETOROLAC 30 MG/ML VIAL (*BKC) IV PUSH (07:33)
[2020-05-22 07:34] LABS: Basophils Percent Auto 0.4 % (0.2-1.2); Eosinophils Percent Auto 1.6 % (0-4.4); Hematocrit 42.4 % (37.0-47.0); Hemoglobin 14.1 g/dL (12.0-15.0); Lymphocytes Absolute Auto 1.51 K/mm3 (0.9-3.2); Lymphocytes Percent Auto 61.4 % (18.3-44.2); Mean Corpuscular HGB Conc 33.3 g/dl (32-36); Mean Corpuscular Hemoglobin 30.5 pg (26-34); Mean Corpuscular Volume 91.6 fl (80-100); Mean Platelet Volume 9.3 fl (7.4-10.4); Monocytes Absolute Auto 0.5 K/mm3 (0.1-0.6); Monocytes Percent Auto 18.7 % (2.6-8.5); Neutrophils Absolute Auto 0.4 K/mm3 (1.3-6.7); Neutrophils Percent Auto 17.9 % (45.5-73.1); Platelet Count Result 332 k/mm3 (150-375); Red Blood Count 4.63 M/mm3 (4.2-5.4); Red Cell Distribution Width 11.9 % (11.5-14.5); White Blood Count 2.5 K/mm3 (4.5-10.0)
[2020-05-22] MEDS: SODIUM CHLORIDE 0.9% IV 1,000 ML 999 ML IV CONT (07:35)
--- NOTE | 2020-05-22 07:36 | PC.NURSE ---
PT STATES UNABLE TO URINATE AT THIS TIME.
[2020-05-22 07:50] LABS: Alanine Aminotransferase 41 U/L (4-35); Albumin Level 5.1 g/dL (3.5-5.1); Alkaline Phosphatase 111 U/L (38-126); Anion Gap 8 mmol/L (8-16); Aspartate Amino Transferase 54 U/L (14-36); Bilirubin,Total 0.4 mg/dL (0.2-1.3); Blood Urea Nitrogen 8 mg/dL (7-17); Calcium 9.8 mg/dL (8.4-10.2); Carbon Dioxide 35 mmol/L (22-30); Chloride 95 mmol/L (98-107); Estimated CRCL calculation 70 ml/min; Estimated Glomerular Filt Rate > 60; Glucose 105 mg/dL (65-105); Potassium 3.7 mmol/L (3.4-5.0); Sodium 138 mmol/L (137-145)
[2020-05-22 07:51] LABS: INR 0.9
[2020-05-22 07:58] LABS: Partial Thromboplastin Time 29.3 SECONDS (22.3-36.8)
[2020-05-22 08:01] VITALS: BP 126/87; PULSE 66; RESP 20; O2SAT 100
[2020-05-22 08:40] LABS: Add Urine Microscopic? YES; Appearance Urine Cloudy (Clear); Bacteria Urine 3+ /hpf; Bilirubin Urine Negative (Negative); Color Urine Yellow (Yellow); Glucose Urine UA Negative (Negative); Hyaline Casts Urine 20-29 /lpf; Ketones Urine Negative (Negative); Leukocyte Esterase Ur Negative LEU/UL (Negative); Mucus Urine Rare /lpf; Nitrate Urine Negative (Negative); Protein Urine Negative (Negative); Specific Grav Ur 1.017 (1.001-1.035); Squamous Epithelial Cell Urine Moderate /hpf (Few); Urobilinogen Urine Negative mg/dL (<2.0)
[2020-05-22 08:46] LABS: Blood Urine Negative (Negative)
[2020-05-22 08:58] VITALS: BP 112/74; PULSE 62; RESP 20; O2SAT 100
[2020-05-22 10:21] VITALS: BP 117/76; PULSE 75; RESP 18; O2SAT 100
== END 2020-05-22 10:22 | disposition home or self-care (01) ==
PROVIDERS: Emergency Provider Emergency Medicine; PCP Internal Medicine
DX: U07.1 COVID-19 (principal); N30.00 Acute cystitis without hematuria; E11.9 Type 2 diabetes mellitus without complications; I10 Essential (primary) hypertension; J45.909 Unspecified asthma, uncomplicated; K21.9 Gastro-esophageal reflux disease without esophagitis; E78.5 Hyperlipidemia, unspecified; E55.9 Vitamin D deficiency, unspecified; Z79.84 Long term (current) use of oral hypoglycemic drugs
CPT/HCPCS: 36415; 80053; 81001; 81025; 85025; 85610; 85730; 87086; 87088; 96361; 96365; 96375; 99284; J0131; J1885; J2405; J7030

== ENCOUNTER 2020-06-01 08:21 | Emergency (ER) | payer OTHER, SELFPAY ==
--- NOTE | ~2020-06-01 | CT_ITS ---
EXAMINATION: CT abdomen pelvis w con INDICATION: Left flank and lower abdominal pain TECHNIQUE: Computed tomographic images of the abdomen and pelvis were obtained after the administrati on of 100 cc of Omnipaque 350 intravenous contrast. The dose-length product (DLP) was 433.04 mGy-cm. Automated exposure control and iterative reconstruction technique were employed. COMPARISON: 10/31/2018 FINDINGS: There are airspace opacities in the right middle and lower lobes. The heart size is normal. The liver, spleen, pancreas, gallbladder, and adrenal glands are normal. There is a 5 mm cyst of the right kidney. The left kidney is unremarkable. There is no hydronephrosis or hydroureter. No patholo gically enlarged abdominal or pelvic lymph nodes are identified. There is no free intraperitoneal gas or evidence of bowel obstruction. There is a fat-containing umbilical hernia. IMPRESSION: 1. No CT correlate for the patient's symptoms. Reviewed, dictated and finalized at location A. ERATIVE EDUCATION DIRECTOR
[2020-06-01 08:31] VITALS: BP 130/87; PULSE 80; RESP 18; TEMP 36.2; O2SAT 98
[2020-06-01] MEDS: KETOROLAC 30 MG/ML VIAL (*BKC) IV PUSH (08:56)
[2020-06-01 09:10] LABS: Add Urine Microscopic? YES; Appearance Urine Clear (Clear); Bacteria Urine Trace /hpf; Bilirubin Urine Negative (Negative); Blood Urine Negative (Negative); Color Urine Amber (Yellow); Glucose Urine UA Negative (Negative); Ketones Urine Negative (Negative); Leukocyte Esterase Ur Negative LEU/UL (Negative); Mucus Urine Rare /lpf; Nitrate Urine Positive (Negative); Protein Urine 1+ mg/dL (Negative); RBC Urine 0-2 /hpf (0-2); Specific Grav Ur 1.029 (1.001-1.035); Squamous Epithelial Cell Urine Few /hpf (Few)
--- NOTE | 2020-06-01 09:21 | ED.GENADULT ---
HPI - General Adult General Chief complaint: Back Pain/Injury Stated complaint: lt side pain Time Seen by Provider: 06/01/20 08:27 History of Present Illness HPI narrative: Patient is a 44-year-old female who presents ER with left flank pain and urinary frequency. Ongoing for the last couple of days. Had similar symptoms last week when she was diagnosed with UTI. Took full course of antibiotics with mild improvement. Cannot describe any aggravating or alleviating factors at this time. Pain is a dull ache that is constant. No sharp increases in intensity. No nausea or vomiting. Had diarrhea previously but that has since cleared up. Related Data Home Medications Medication Instructions Recorded Confirmed metformin 500 mg tablet 500 mg PO BID 05/10/19 05/08/20 atorvastatin 20 mg tablet 20 mg PO DAILY 09/12/19 05/08/20 Allergies Allergy/AdvReac Type Severity Reaction Status Date / Time No Known Allergies Allergy Verified 06/01/20 08:44 Review of Systems Review of Systems: All systems reviewed & are unremarkable except as noted in HPI and below Constitutional: Constitutional: Denies chills, Denies fever(s) and Denies weakness ENT: Denies nasal congestion and Denies sore throat Respiratory: Respiratory: Denies cough, Denies dyspnea and Denies wheezing Gastrointestinal: Gastrointestinal: Denies abdominal pain, Denies diarrhea, Denies nausea and Denies vomiting Genitourinary: Genitourinary: Reports nocturia, Reports dysuria, Reports flank pain and Denies urinary incontinence [facility] Past Medical History Medical History (Updated 06/01/20 @ 13:27 by Aly Russell MD) Allergic rhinitis Asthma Atypical chest pain Bakers cyst Essential hypertension Genital herpes GERD (gastroesophageal reflux disease) Hepatic steatosis High cholesterol HLD (hyperlipidemia) Hypertension Hypovitaminosis D IFG (impaired fasting glucose) Knee pain Lymphocytosis Pre-diabetes Vision abnormalities Surgical History Surgical History H/O tubal ligation H/O: hysterectomy History of reduction mammoplasty Family History Family History Mother Hypertension Diabetes mellitus Family history of alcoholism Family history of Alzheimer's disease Social History Social History Smoking status: Never smoker Alcohol intake: current Substance use: never Gender identity (if verbalized by the patient): Female Exam Narrative: Exam Narrative: GENERAL: Well-appearing, well-nourished, and in no acute distress. HEAD: Normocephalic, atraumatic. CHEST: Clear to auscultation. No respiratory distress. HEART: Regular rate and rhythm. Normal peripheral pulses. ABDOMEN: Soft, nontender, nondistended. Left CVA tenderness. EXTREMITIES: Normal range of motion. No edema. SKIN: Warm, dry, no rash. NEURO: Alert and oriented x3. PSYCH: Normal mood and affect Course Course Emergency Course: Patient informed of results with still some mild mid low back pain. No chest pain or difficulty breathing or pain with deep breath. Patient had some minor left lower quadrant tenderness on exam. Lab evaluation and CT evaluation has been unremarkable. Patient does have a positive nitrate which she did not have previously which could represent new UTI. Patient had a much shoe cleaner sample. She will be started on antibiotics for home. Vital Signs Vital signs: Vital Signs Temperature 97.2 F L 06/01/20 08:31 Pulse Rate 80 06/01/20 08:31 Respiratory Rate 18 06/01/20 08:31 Blood Pressure 130/87 06/01/20 08:31 Pulse Oximetry 98 06/01/20 08:31 Temperature 97.2 F L 06/01/20 08:31 Pulse Rate 72 06/01/20 10:28 Respiratory Rate 17 06/01/20 10:28 Blood Pressure 120/78 06/01/20 10:28 Pulse Oximetry 100 06/01/20 10:28 Medical Decision Making Vital Signs V
[2020-06-01 09:33] LABS: Basophils Percent Auto 0.6 % (0.2-1.2); Eosinophils Absolute Auto 0.1 K/mm3 (0-0.3); Eosinophils Percent Auto 2.1 % (0-4.4); Hematocrit 37.2 % (37.0-47.0); Hemoglobin 12.4 g/dL (12.0-15.0); Immature Granulocyte Absolute 0.02 K/mm3 (0.00-0.031); Immature Granulocyte Percent A 0.4 % (0-0.5); Lymphocytes Absolute Auto 3.05 K/mm3 (0.9-3.2); Lymphocytes Percent Auto 64.9 % (18.3-44.2); Mean Corpuscular HGB Conc 33.3 g/dl (32-36); Mean Corpuscular Volume 89.9 fl (80-100); Mean Platelet Volume 9.9 fl (7.4-10.4); Monocytes Absolute Auto 0.4 K/mm3 (0.1-0.6); Monocytes Percent Auto 7.4 % (2.6-8.5); Neutrophils Absolute Auto 1.2 K/mm3 (1.3-6.7); Neutrophils Percent Auto 24.6 % (45.5-73.1); Platelet Count Result 315 k/mm3 (150-375); Red Blood Count 4.14 M/mm3 (4.2-5.4); Red Cell Distribution Width 11.5 % (11.5-14.5); White Blood Count 4.7 K/mm3 (4.5-10.0)
[2020-06-01 09:49] LABS: Anion Gap 10 mmol/L (8-16); Blood Urea Nitrogen 12 mg/dL (7-17); Calcium 9.5 mg/dL (8.4-10.2); Carbon Dioxide 30 mmol/L (22-30); Chloride 100 mmol/L (98-107); Estimated CRCL calculation 87 ml/min; Estimated Glomerular Filt Rate > 60; Glucose 102 mg/dL (65-105); Potassium 3.4 mmol/L (3.4-5.0); Sodium 140 mmol/L (137-145)
[2020-06-01 10:28] VITALS: BP 120/78; PULSE 72; RESP 17; O2SAT 100
[2020-06-01 13:56] VITALS: BP 142/76; PULSE 84; RESP 16; O2SAT 98
== END 2020-06-01 13:30 | disposition home or self-care (01) ==
PROVIDERS: Emergency Provider Emergency Medicine; PCP Internal Medicine
DX: N39.0 Urinary tract infection, site not specified (principal); R10.9 Unspecified abdominal pain; R35.0 Frequency of micturition; Z79.84 Long term (current) use of oral hypoglycemic drugs; J45.909 Unspecified asthma, uncomplicated; I10 Essential (primary) hypertension; K21.9 Gastro-esophageal reflux disease without esophagitis; E78.5 Hyperlipidemia, unspecified; E55.9 Vitamin D deficiency, unspecified; R73.03 Prediabetes
CPT/HCPCS: 36415; 74177; 80048; 81001; 85025; 96374; 99284; J1885; Q9967

== ENCOUNTER 2020-08-17 11:29 | Outpatient (CLI) | payer OTHER, MEDICAID, SELFPAY ==
--- NOTE | ~2020-08-17 | MM_ITS ---
EXAMINATION: MM diagnostic laina BI w nancie HISTORY: Breast composed of scattered areas of fibroglandular density. TECHNIQUE: Additional 3-D tomosynthesis images of the breasts were performed and synthetic 2-D images were generated. CAD analysis was submitted and interpreted. COMPARISON: Comparison to multiple prior studies sequentially, with oldest reviewed study dated 08/04. BREAST PARENCHYMAL COMPOSITION: Breast composed of scattered areas of fibroglandular density FINDINGS: There is distortion of both breasts, consistent with previous bilateral breast reduction jacques rgery. There are clustered calcifications in the lower central aspect of both breasts, likely seconda ry to fat necrosis. No new masses, calcifications or architectural distortion. IMPRESSION: 1. Probable benign architectural distortion and clustered nonspecific calcifications bilaterally, lik bryon related to previous surgery. 2. Recommend 6 month follow-up diagnostic bilateral mammogram BI-RADS category 3, probably benign findings. Reviewed, dictated and finalized at location A. IMPRESSION: 1. Probable benign architectural distortion and clustered nonspecific calcifica tions bilaterally, likely related to previous surgery. 2. Recommend 6 month follow-up diagnostic bilateral mammogram BI-RADS category 3, probably benign findings.
== END 2020-08-17 11:30 | disposition home or self-care (01) ==
LOC: ANHIMG 11:29
PROVIDERS: PCP Internal Medicine; Visit Provider Surgery Plastic and Reconstructive Surgery
DX: R92.8 Other abnormal and inconclusive findings on diagnostic imaging of breast (principal)
CPT/HCPCS: 77062; 77066; G0279

== ENCOUNTER 2020-12-05 12:32 | Emergency (ER) | payer OTHER, SELFPAY ==
[2020-12-05 12:33] VITALS: BP 131/94; PULSE 86; RESP 14; TEMP 36.7; O2SAT 99
--- NOTE | 2020-12-05 12:53 | ED.EAR ---
HPI - Ear Problem General Chief complaint: Ear Stated complaint: R EAR PAIN Time Seen by Provider: 12/05/20 12:40 Source: patient Mode of arrival: ambulatory Limitations: no limitations History of Present Illness HPI Narrative: This is a 44-year-old female that presents to the emergency department for right earache present over the last couple of weeks. Reports she has been on amoxicillin for an ear infection for 1 week without relief. Continues to have pain in the ear. Also reports some decreased hearing in the ear. Denies fever or drainage. Related Data Home Medications Medication Instructions Recorded Confirmed atorvastatin 20 mg tablet 20 mg PO DAILY 09/12/19 05/08/20 amoxicillin 12/05/20 Allergies Allergy/AdvReac Type Severity Reaction Status Date / Time No Known Allergies Allergy Verified 12/05/20 12:53 Review of Systems Review of Systems: CONSTITUTIONAL: Denies fever ENT: Reports otalgia. All systems reviewed & are unremarkable except as noted in HPI and below PMFSH Past Medical History Medical History (Updated 12/05/20 @ 13:00 by Myrna Bajwa PA-C) Allergic rhinitis Asthma Atypical chest pain Bakers cyst Essential hypertension Genital herpes GERD (gastroesophageal reflux disease) Hepatic steatosis High cholesterol HLD (hyperlipidemia) Hypertension Hypovitaminosis D IFG (impaired fasting glucose) Knee pain Lymphocytosis Pre-diabetes Vision abnormalities Surgical History Surgical History H/O tubal ligation H/O: hysterectomy History of reduction mammoplasty Family History Family History Mother Hypertension Diabetes mellitus Family history of alcoholism Family history of Alzheimer's disease Social History Social History Smoking status: Never smoker Alcohol intake: current Alcohol use details: Occasional Substance use: never Gender identity (if verbalized by the patient): Female Exam Narrative: GENERAL: Well-appearing, well-nourished, and in no acute distress. HEAD: Normocephalic, atraumatic. EYES: EOMI. ENT: Bilateral TMs pearly morrow non-bulging. Right external auditory canal with mild-moderate edema and irritation. No mastoid tenderness NECK: Supple. No adenopathy or masses. EXTREMITIES: Normal range of motion. No edema. SKIN: Warm, dry, no rash. NEURO: No focal deficits. Alert and oriented x3. PSYCH: Normal mood and affect Course Vital Signs Vital signs: Vital Signs Temperature 98.0 F 12/05/20 12:33 Pulse Rate 86 12/05/20 12:33 Respiratory Rate 14 12/05/20 12:33 Blood Pressure 131/94 H 12/05/20 12:33 Pulse Oximetry 99 12/05/20 12:33 Temperature 98.0 F 12/05/20 12:33 Pulse Rate 86 12/05/20 12:33 Respiratory Rate 14 12/05/20 12:33 Blood Pressure 131/94 H 12/05/20 12:33 Pulse Oximetry 99 12/05/20 12:33 Medical Decision Making MDM Narrative Medical decision making narrative: Patient presents to the emergency department for right earache present over the last couple of weeks. She is afebrile and nontoxic-appearing. Currently on oral antibiotics for otitis media. The right external auditory canal is mildly swollen and red. Patient will be started on antibiotic eardrops for otitis externa. She is to follow-up with primary care doctor. She was given warnings to return to the ER Vital Signs Vital Signs: Vital Signs Temperature 98.0 F 12/05/20 12:33 Pulse Rate 86 12/05/20 12:33 Respiratory Rate 14 12/05/20 12:33 Blood Pressure 131/94 H 12/05/20 12:33 Pulse Oximetry 99 12/05/20 12:33 Temperature 98.0 F 12/05/20 12:33 Pulse Rate 86 12/05/20 12:33 Respiratory Rate 14 12/05/20 12:33 Blood Pressure 131/94 H 12/05/20 12:33 Pulse Oximetry 99 12/05/20 12:33 Critical Care Time Critical Care Time Cri
[2020-12-05] MEDS: CIPROFLOXACIN HC OTIC 10 ML 3 DROP RIGHT EAR (13:03)
== END 2020-12-05 13:23 | disposition home or self-care (01) ==
LOC: ANHED 13:05
PROVIDERS: Emergency Provider Emergency Medicine; PCP Internal Medicine
DX: H60.501 Unspecified acute noninfective otitis externa, right ear (principal); J45.909 Unspecified asthma, uncomplicated; I10 Essential (primary) hypertension; K21.9 Gastro-esophageal reflux disease without esophagitis; E78.00 Pure hypercholesterolemia, unspecified; E55.9 Vitamin D deficiency, unspecified; R73.03 Prediabetes
CPT/HCPCS: 99283; A9270

== ENCOUNTER → 2021-01-04 12:44 | Outpatient (CLI) | payer OTHER, SELFPAY ==
--- NOTE | ~2021-01-04 | XR_ITS ---
XR lumbar spine 2-3V 01/04/2021 13:09 Indication: Low back pain Procedure: 3 views lumbar spine Comparison: No prior studies for comparison. Findings: No fracture, subluxation or dislocation. Vertebral heights are maintained. No evidence for spondylolysis or spondylolisthesis. Pedicles intact. Sacral foramen are symmetric. Impression: 1: No significant abnormality of the lumbar spine. Reviewed, dictated and finalized at location A. Impression: 1: No significant abnormality of the lumbar spine.
== END ==
PROVIDERS: PCP Internal Medicine; Visit Provider Internal Medicine
DX: M54.5 Low back pain (principal)
CPT/HCPCS: 72100

== ENCOUNTER 2021-01-16 16:58 | Emergency (ER) | payer OTHER, SELFPAY ==
[2021-01-16 17:30] VITALS: BP 149/89; PULSE 106; RESP 18; TEMP 36.8; O2SAT 99
[2021-01-16 17:47] LABS: Add Urine Microscopic? YES; Appearance Urine Clear (Clear); Bacteria Urine Trace /hpf; Bilirubin Urine Negative (Negative); Blood Urine 1+ (Negative); Color Urine Yellow (Yellow); Glucose Urine UA Negative (Negative); Ketones Urine Negative (Negative); Leukocyte Esterase Ur Negative LEU/UL (Negative); Mucus Urine Rare /lpf; Nitrate Urine Negative (Negative); Protein Urine Negative (Negative); RBC Urine 0-2 /hpf (0-2); Specific Grav Ur 1.025 (1.001-1.035); Squamous Epithelial Cell Urine Occasional /hpf (Few); Urobilinogen Urine Negative mg/dL (<2.0); WBC Urine 0-3 /hpf
== END 2021-01-16 17:30 | disposition left against medical advice (07) ==
PROVIDERS: Emergency Provider Emergency Medicine; PCP Internal Medicine
DX: M54.50 Low back pain, unspecified (principal)
CPT/HCPCS: 81001; 99199

== ENCOUNTER 2021-01-17 06:40 | Emergency (ER) | payer OTHER, SELFPAY ==
[2021-01-17 07:30] VITALS: BP 143/92; PULSE 93; RESP 16; TEMP 36.3; O2SAT 100
[2021-01-17] MEDS: KETOROLAC (*BKC) 60 MG/2 ML VIAL (09:25)
--- NOTE | 2021-01-17 10:41 | ED.GENADULT ---
HPI - General Adult General Chief complaint: Back Pain/Injury Stated complaint: left back/butt/leg pain Time Seen by Provider: 01/17/21 07:03 Source: patient Mode of arrival: ambulatory Limitations: no limitations History of Present Illness HPI narrative: Pt presents for evaluation and treatment of low back pain with radiation into the left lower extremity. Symptom onset 4 weeks ago. She cannot identify any precipitating cause or injury. Pain is constant and severe. She states initially she felt like her back needed to be popped . She then developed a burning pain. She now has charley horses in her low back. She reports numbness in her LLE. No bladder or bowel incontinence. No saddle anesthesia. She had an x ray of her lumbar spine on 01/04/21 which was normal. She states her PCP gave her a script for flexeril but it was ineffective. She states that the medication made her drowsy. Movement causes worsening pain. No additional complaints or concerns. Related Data Allergies Allergy/AdvReac Type Severity Reaction Status Date / Time No Known Allergies Allergy Verified 01/17/21 07:43 Review of Systems Review of Systems: CONSTITUTIONAL: Denies fever, chills, or sweats. EYES: Denies visual changes, redness, or discharge. ENT: Denies rhinorrhea, congestion, sore throat, or otalgia. CARDIOVASCULAR: Denies chest pain, palpitations, or edema. RESPIRATORY: Denies cough or dyspnea. GASTROINTESTINAL: Denies abdominal pain, nausea, vomiting, or diarrhea. GENITOURINARY: Denies dysuria or hematuria. SKIN: Denies rash or itching. MUSCULOSKELETAL:Reports low back pain with radiation into LLE NEUROLOGIC: Reports numbness and tingling in LLE. Denies headache, dizziness, or weakness. PSYCHIATRIC: Denies anxiety or depression. [facility] Past Medical History Medical History Allergic rhinitis Asthma Atypical chest pain Bakers cyst Diabetes Essential hypertension Genital herpes GERD (gastroesophageal reflux disease) Hepatic steatosis High cholesterol HLD (hyperlipidemia) Hypertension Hypovitaminosis D IFG (impaired fasting glucose) Knee pain Lymphocytosis Pre-diabetes Vision abnormalities Surgical History Surgical History H/O tubal ligation H/O: hysterectomy History of reduction mammoplasty Family History Family History Mother Hypertension Diabetes mellitus Family history of alcoholism Family history of Alzheimer's disease Social History Social History Smoking status: Never smoker Second hand tobacco smoke exposure: No Alcohol intake: current Alcohol use details: Occasional Substance use: never Substance use type: does not use Gender identity (if verbalized by the patient): Female Exam Narrative: GENERAL: Well-appearing, well-nourished, and in no acute distress. HEAD: Normocephalic, atraumatic. EYES: PERRLA and EOMI. ENT: Nares clear, no rhinorrhea or epistaxis. Mucous membranes moist. Oropharynx without tonsillar hypertrophy exudate or other lesions. Bilateral TMs pearly morrow nonbulging NECK: Supple. No adenopathy or masses. No carotid bruits or JVD CHEST: Clear to auscultation. No respiratory distress. No wheezes rales or rhonchi HEART: Regular rate and rhythm. No murmur heard. Normal peripheral pulses. ABDOMEN: Soft, nontender, nondistended, normal active bowel sounds. BACK: No tenderness in midline or paraspinous muscles of lumbar spine. No CVA tenderness. Positive straight leg raise on left but negative on the right. EXTREMITIES: Normal range of motion. No edema. SKIN: Warm, dry, no rash. NEURO: No focal deficits. Alert and oriented x3. PSYCH: Normal mood and affect. Course Course Emergency Course: This is a 45-year-old female who presented with com
[2021-01-17] MEDS: HYDROcodone/acetaminophen (*CRX) 5-325 MG TABLET 1 TAB PO (11:25)
[2021-01-17] MEDS: methylPREDNISolone SOD SUCC 125 MG VIAL IM (11:25)
[2021-01-17 11:30] VITALS: BP 136/78; PULSE 70; RESP 16; O2SAT 100
== END 2021-01-17 12:55 | disposition home or self-care (01) ==
PROVIDERS: Emergency Provider Nurse Practitioner; PCP Internal Medicine
DX: M54.42 Lumbago with sciatica, left side (principal); J45.909 Unspecified asthma, uncomplicated; E11.9 Type 2 diabetes mellitus without complications; I10 Essential (primary) hypertension; E78.5 Hyperlipidemia, unspecified; E55.9 Vitamin D deficiency, unspecified; K21.9 Gastro-esophageal reflux disease without esophagitis; Z79.84 Long term (current) use of oral hypoglycemic drugs
CPT/HCPCS: 96372; 96374; 99284; A9270; J1885; J2930

== ENCOUNTER 2021-03-09 12:30 | Outpatient (CLI) | payer OTHER, MEDICAID, SELFPAY ==
--- NOTE | ~2021-03-09 | MR_ITS ---
EXAMINATION: MR lumbar spine wo con DATE: 03/09/2021 13:52 INDICATION: Lumbar radiculopathy. TECHNIQUE: Magnetic resonance imaging (MRI) of the lumbar spine was performed without intravenous con trast. Sequences included sagittal T2-weighted FSE, sagittal T2-weighted FS FSE, sagittal T1-weighted FSE, and axial T2-weighted FSE. COMPARISON: Lumbar spine radiographs 01/04/2021 FINDINGS: Bone alignment is normal. Vertebral body heights and intervertebral disc heights are normal . The distal spinal cord signal intensity is normal. The conus medullaris is at L1. The following dis c levels are specifically discussed: L1-L2: The disc does not extend beyond the endplate margin. There is mild left facet joint osteoarthr itis. There is no neural foraminal stenosis. There is no central canal stenosis. L2-L3: The disc does not extend beyond the endplate margin. There is mild bilateral facet joint osteo arthritis. There is no neural foraminal stenosis. There is no central canal stenosis. L3-L4: The disc is bulging and has an annular fissure. There is mild bilateral facet joint osteoarthr itis. There is mild left neural foraminal stenosis. There is mild central canal stenosis. L4-L5: The disc is bulging and has an annular fissure. There is mild bilateral facet joint osteoarthr itis. There is mild bilateral neural foraminal stenosis. There is mild central canal stenosis. L5-S1: There is a central protrusion. There is mild bilateral facet joint osteoarthritis. There is no neural foraminal stenosis. There is mild central canal stenosis. IMPRESSION: 1. Mild lumbar spondylosis. Reviewed, dictated and finalized at location B. [facility] IMPRESSION: 1. Mild lumbar spondylosis.
== END 2021-03-09 12:31 | disposition home or self-care (01) ==
LOC: ANHIMG 12:35
PROVIDERS: PCP Internal Medicine; Visit Provider Nurse Practitioner Adult Health
DX: M47.26 Other spondylosis with radiculopathy, lumbar region (principal)
CPT/HCPCS: 72148

== ENCOUNTER 2021-11-04 18:09 | Emergency (ER) | payer OTHER, MEDICAID, SELFPAY ==
--- NOTE | ~2021-11-04 | XR_ITS ---
EXAMINATION: XR chest 2V DATE: 11/04/2021 18:45 INDICATION: Chest pain with inspiration. Shortness of breath. TECHNIQUE: Frontal and lateral views of the chest were obtained. COMPARISON: Chest single view 07/19/2019 FINDINGS: The chest demonstrates clear lungs without pneumonia, pleural effusion, or pneumothorax. Th e heart size is normal. IMPRESSION: 1. No acute cardiopulmonary disease. Reviewed, dictated and finalized at location A.
--- NOTE | ~2021-11-04 | XR_ITS ---
EXAMINATION: XR abdomen obstructive series DATE: 11/04/2021 20:10 INDICATION: Abdominal fullness. TECHNIQUE: Upright and supine views of the abdomen on 3 radiographs were obtained. COMPARISON: CT abdomen and pelvis 06/01/2020 FINDINGS: There are no dilated loops of bowel. There is a paucity of stool in the colon. No free intr aperitoneal gas. There are phleboliths in the pelvis. IMPRESSION: 1. Normal bowel gas pattern. Reviewed, dictated and finalized at location A.
[2021-11-04 18:22] VITALS: BP 148/87; PULSE 68; RESP 18; TEMP 36.3; O2SAT 100
[2021-11-04 19:52] VITALS: O2SAT 100
--- NOTE | 2021-11-04 20:01 | ED.GENADULT ---
HPI - General Adult General Chief complaint: Shortness of Breath/Dyspnea Stated complaint: SOB since last night Time Seen by Provider: 11/04/21 19:52 History of Present Illness HPI narrative: 45-year-old female presenting to the emergency department for evaluation of dizziness, abdominal fullness and shortness of breath. Patient states over the last 2 days she has had what she describes as difficulty taking a deep breath but states she feels this is due to her abdomen. Patient denies any chest pain or any chest tightness. Patient states she does not feel that her chest is tight but she states that she feels her abdomen is tight. Patient does have some mild abdominal tenderness. Patient denied any abdominal pain. Patient suspected that she is constipated and did start taking some MiraLAX. Patient denies any history of [place]. Patient does have history of diabetes, hypertension and high cholesterol. Patient has a prior surgical history of breast reduction and hysterectomy. Related Data Allergies Allergy/AdvReac Type Severity Reaction Status Date / Time No Known Allergies Allergy Verified 01/17/21 07:43 Review of Systems Review of Systems: CONSTITUTIONAL: Denies fever, chills, or sweats. EYES: Denies visual changes, redness, or discharge. ENT: Denies rhinorrhea, congestion, sore throat, or otalgia. CARDIOVASCULAR: Denies chest pain, palpitations, or edema. RESPIRATORY: Reports inability to take a deep breath. Denies any pain with respiration., See HPI GASTROINTESTINAL: Denies any abdominal pain and has no associated nausea vomiting diarrhea, does have some constipation and reports abdominal fullness, see HPI GENITOURINARY: Denies dysuria or hematuria. SKIN: Denies rash or itching. MUSCULOSKELETAL: Denies back pain, joint pain, or myalgia. NEUROLOGIC: Denies headache, numbness, or weakness. [facility] Past Medical History Medical History Allergic rhinitis Asthma Atypical chest pain Bakers cyst Diabetes Essential hypertension Genital herpes GERD (gastroesophageal reflux disease) Hepatic steatosis High cholesterol HLD (hyperlipidemia) Hypertension Hypovitaminosis D IFG (impaired fasting glucose) Knee pain Lymphocytosis Pre-diabetes Vision abnormalities Surgical History Surgical History H/O tubal ligation H/O: hysterectomy History of reduction mammoplasty Family History Family History Mother Hypertension Diabetes mellitus Family history of alcoholism Family history of Alzheimer's disease Social History Social History Smoking status: Never smoker Second hand tobacco smoke exposure: No Alcohol intake: current Alcohol use details: Occasional Substance use: never Substance use type: does not use Gender identity (if verbalized by the patient): Female Exam Narrative: APPEARANCE: Well appearing, no pain, no distress, well-nourished. HEAD: normocephalic, atraumatic. EYES: PERRLA/EOMI, conjunctivae clear. NOSE: Normal no drainage NECK: Supple. No adenopathy, no masses. RESPIRATORY: Airway patent, respirations nonlabored. Clear to auscultation bilaterally, no rales, rhonchi, wheezing. CARDIOVASCULAR: Regular rate and rhythm without murmurs rubs or gallops. ABDOMINAL: Soft, normal bowel sounds, mild generalized tenderness to palpation. MUSCULOSKELETAL: Moves all extremities. Strength/ROM intact, No edema, No calf tenderness. NEURO: Alert. Cranial nerves II through XII intact. Grossly intact SKIN: Warm, dry. Normal Color Course Course Emergency Course: Chest x-ray and abdominal x-ray showed no acute abnormalities. Patient is afebrile with no leukocytosis. Patient's CMP is within normal limits. Urine shows no evidence of urinary tract infection. Patient is negati
--- NOTE | 2021-11-04 20:06 | ECG_ITS ---
Measurements Intervals [place] Rate: 62 P: 61 AL: 159 QRS: 38 QRSD: 93 T: 16 QT: 411 QTc: 420 Interpretive Statements SINUS RHYTHM BASELINE ARTIFACT- I, III, AVR, AVL NORMAL ECG Electronically Signed On 11-04-2021 20:26:06 CDT by Med Grimaldo D.O.
[2021-11-04 20:20] VITALS: PULSE 63; RESP 18
[2021-11-04] MEDS: ALBUTEROL SULFATE NEB 2.5 MG/3 ML INH 5 MG INHALATION (20:20)
[2021-11-04 20:30] VITALS: PULSE 66; RESP 18
[2021-11-04 20:34] LABS: Basophils Percent Auto 0.4 % (0.2-1.2); Eosinophils Absolute Auto 0.3 K/mm3 (0-0.3); Eosinophils Percent Auto 3.8 % (0-4.4); Hematocrit 33.4 % (37.0-47.0); Hemoglobin 10.9 g/dL (12.0-15.0); Immature Granulocyte Absolute 0.01 K/mm3 (0.00-0.031); Immature Granulocyte Percent A 0.1 % (0-0.5); Lymphocytes Absolute Auto 4.78 K/mm3 (0.9-3.2); Lymphocytes Percent Auto 53.3 % (18.3-44.2); Mean Corpuscular HGB Conc 32.6 g/dl (32-36); Mean Corpuscular Hemoglobin 30.1 pg (26-34); Mean Corpuscular Volume 92.3 fl (80-100); Mean Platelet Volume 9.7 fl (7.4-10.4); Monocytes Absolute Auto 0.6 K/mm3 (0.1-0.6); Monocytes Percent Auto 6.6 % (2.6-8.5); Neutrophils Absolute Auto 3.2 K/mm3 (1.3-6.7); Neutrophils Percent Auto 35.8 % (45.5-73.1); Platelet Count Result 325 k/mm3 (150-375); Red Blood Count 3.62 M/mm3 (4.2-5.4); Red Cell Distribution Width 12.1 % (11.5-14.5)
[2021-11-04 20:43] LABS: Alanine Aminotransferase 20 U/L (6-35); Albumin Level 4.4 g/dL (3.5-5.1); Alkaline Phosphatase 83 U/L (38-126); Anion Gap 8 mmol/L (8-16); Aspartate Amino Transferase 28 U/L (14-36); Bilirubin,Total 0.4 mg/dL (0.2-1.3); Blood Urea Nitrogen 10 mg/dL (7-17); Calcium 9.3 mg/dL (8.4-10.2); Carbon Dioxide 24 mmol/L (22-30); Chloride 106 mmol/L (98-107); Estimated CRCL calculation 90 ml/min; Estimated Glomerular Filt Rate > 60; Glucose 96 mg/dL (65-110); Potassium 3.7 mmol/L (3.4-5.0); Sodium 138 mmol/L (137-145)
[2021-11-04 21:10] LABS: SARS-CoV-2 RNA PCR Negative
[2021-11-04 21:18] LABS: Appearance Urine Clear (Clear); Bilirubin Urine Negative (Negative); Blood Urine Trace-lysed (Negative); Color Urine Yellow (Yellow); Glucose Urine UA Negative (Negative); Ketones Urine Negative (Negative); Leukocyte Esterase Ur Negative LEU/UL (Negative); Nitrate Urine Negative (Negative); Protein Urine Negative (Negative); Specific Grav Ur 1.025 (1.001-1.035); Urobilinogen Urine 0.2 mg/dL (<2.0); pH Urine 5.5 (5.0-9.0)
[2021-11-04 21:23] LABS: Mucus Urine Rare /lpf; RBC Urine 0-2 /hpf (0-2); Squamous Epithelial Cell Urine Occasional /hpf (Few); WBC Urine 0-3 /hpf
[2021-11-04 21:24] LABS: Add Urine Microscopic? YES
== END 2021-11-04 22:35 | disposition home or self-care (01) ==
PROVIDERS: Emergency Provider Emergency Medicine
DX: R10.84 Generalized abdominal pain (principal); Z20.822 Contact with and (suspected) exposure to COVID-19; E11.9 Type 2 diabetes mellitus without complications; I10 Essential (primary) hypertension; Z90.710 Acquired absence of both cervix and uterus; J45.909 Unspecified asthma, uncomplicated; K21.9 Gastro-esophageal reflux disease without esophagitis; E78.5 Hyperlipidemia, unspecified; E55.9 Vitamin D deficiency, unspecified; Z79.84 Long term (current) use of oral hypoglycemic drugs
CPT/HCPCS: 36415; 71046; 74019; 80053; 81001; 85025; 93005; 94640; 99283; C9803; U0003; U0005

== ENCOUNTER 2022-03-11 20:50 | Emergency (ER) | payer OTHER, MEDICAID, SELFPAY ==
--- NOTE | ~2022-03-11 | XR_ITS ---
EXAMINATION: XR foot LT min 3V DATE: 03/11/2022 21:40 INDICATION: Lateral left foot pain after falling downstairs. TECHNIQUE: Dorsoplantar, two oblique and lateral views of the left foot were obtained. COMPARISON: None. FINDINGS: Alignment is normal. No fracture. Joint spaces are normal. Soft tissues are unremarkable. IMPRESSION: 1. Negative left foot radiographs. Reviewed, dictated and finalized at location A. SETTER
--- NOTE | ~2022-03-11 | XR_ITS ---
EXAMINATION: XR ankle LT min 3V DATE: 03/11/2022 22:50 INDICATION: Medial sided left ankle pain post fall TECHNIQUE: Anteroposterior, oblique, mortise, and lateral views of the left ankle were obtained. COMPARISON: None. FINDINGS: Alignment is normal. No fracture. Joint spaces are well maintained. Small bone island at the cuboid. Small plantar calcaneal spur. No ankle joint effusion. Soft tissue swelling about the medial malleol us. IMPRESSION: 1. No acute osseous abnormality. Reviewed, dictated and finalized at location A. HARDENER
[2022-03-11 21:17] VITALS: BP 138/89; PULSE 90; RESP 16; TEMP 36.7; O2SAT 100
--- NOTE | 2022-03-11 22:23 | ED.LOWEXIN ---
HPI - Extremity Injury (Lower) General Chief Complaint: Extremity Injury, Lower Stated Complaint: left ankle injury Time Seen by Provider: 03/11/22 21:27 Source: RN notes reviewed History of Present Illness HPI Narrative: Patient presents emergency department from home for left ankle pain. Patient states that prior to arrival she was carrying a suitcase on the stairs when she tripped and fell on the last 2 stairs she states that she rolled her ankle and then the suitcase came and hit the medial aspect of her left ankle she states that since that time she is had pain neurological going down to her left foot she denies any other trauma or injury states she took Tylenol for the symptoms with minimal relief Related Data Allergies Allergy/AdvReac Type Severity Reaction Status Date / Time No Known Allergies Allergy Verified 03/11/22 20:51 Review of Systems Review of Systems: Gen.: Denies fevers or chills Musculoskeletal: See HPI Neuro: Denies numbness, tingling, weakness Skin: Denies rash Endo: Denies DM PMFSH Past Medical History Medical History Allergic rhinitis Asthma Atypical chest pain Bakers cyst Diabetes Essential hypertension Genital herpes GERD (gastroesophageal reflux disease) Hepatic steatosis High cholesterol HLD (hyperlipidemia) Hypertension Hypovitaminosis D IFG (impaired fasting glucose) Knee pain Lymphocytosis Pre-diabetes Vision abnormalities Surgical History Surgical History H/O tubal ligation H/O: hysterectomy History of reduction mammoplasty Family History Family History Mother Hypertension Diabetes mellitus Family history of alcoholism Family history of Alzheimer's disease Social History Social History Smoking status: Never smoker Second hand tobacco smoke exposure: No Alcohol intake: current Alcohol use details: Occasional Substance use: never Substance use type: does not use Gender identity (if verbalized by the patient): Female Exam Narrative: APPEARANCE: No acute distress, nontoxic, resting in bed Eyes: EOMI HEENT: Normocephalic, atraumatic, RESPIRATORY: No respiratory distress MUSCULOSKELETAl: Tender to palpation over the left medial ankle with overlying abrasion present no tenderness of the anterior lateral ankle tenderness to palpation over the left medial foot no tenderness of the proximal fibula dorsalis pedis plus 2+ neurovascular NEURO: Awake and alert. Following commands, speech normal, no focal deficits SKIN:: Warm, dry. Normal Color no rash or lesions Course Course Emergency Course: Discussed with patient results of workup and diagnosis. Discussed need for follow-up with primary care, proper use of medication, and reasons to return to the emergency department. Patient understands and agrees to current treatment plan Vital Signs Vital signs: Vital Signs Temperature 98.0 F 03/11/22 21:17 Pulse Rate 90 03/11/22 21:17 Respiratory Rate 16 03/11/22 21:17 Blood Pressure 138/89 03/11/22 21:17 Pulse Oximetry 100 03/11/22 21:17 Oxygen Delivery Room Air 03/11/22 21:17 Temperature 98.0 F 03/11/22 21:17 Pulse Rate 90 03/11/22 21:17 Respiratory Rate 16 03/11/22 21:17 Blood Pressure 138/89 03/11/22 21:17 Pulse Oximetry 100 03/11/22 21:17 Oxygen Delivery Room Air 03/11/22 21:17 MDM - Extremity Injury (Lower) Imaging Data Radiologist's impression: ITS Impressions Foot X-Ray 03/11/22 21:56 IMPRESSION: 1. Negative left foot radiographs. Ankle X-Ray 03/11/22 22:56 IMPRESSION: 1. No acute osseous abnormality. Discharge Plan Discharge Clinical Impression: Contusion of ankle, left, Left ankle sprain Patient Disposition: Home, Self-Care Condition:
[2022-03-11] MEDS: IBUPROFEN 600 MG TABLET PO (22:38)
== END 2022-03-11 23:24 | disposition home or self-care (01) ==
PROVIDERS: Emergency Provider Emergency Medicine
DX: S90.02XA Contusion of left ankle, initial encounter (principal); S93.402A Sprain of unspecified ligament of left ankle, initial encounter; J45.909 Unspecified asthma, uncomplicated; I10 Essential (primary) hypertension; E11.9 Type 2 diabetes mellitus without complications; E78.5 Hyperlipidemia, unspecified; K21.9 Gastro-esophageal reflux disease without esophagitis; Z90.710 Acquired absence of both cervix and uterus; W10.9XXA Fall (on) (from) unspecified stairs and steps, initial encounter; Z79.84 Long term (current) use of oral hypoglycemic drugs
CPT/HCPCS: 73610; 73630; 99283; A9270

== ENCOUNTER 2022-08-19 23:11 | Emergency (ER) | payer OTHER, MEDICAID, SELFPAY ==
[2022-08-19 23:14] VITALS: BP 139/84; PULSE 82; RESP 18; TEMP 36.5; O2SAT 100
[2022-08-19 23:40] LABS: Appearance Urine Clear (Clear); Bilirubin Urine Negative (Negative); Blood Urine Negative (Negative); Color Urine Yellow (Yellow); Glucose Urine UA Negative (Negative); Ketones Urine Negative (Negative); Leukocyte Esterase Ur Negative LEU/UL (Negative); Nitrate Urine Negative (Negative); Protein Urine Negative (Negative); Specific Grav Ur 1.009 (1.001-1.035); Urobilinogen Urine 0.2 mg/dL (<2.0)
[2022-08-19 23:41] LABS: Add Urine Microscopic? NO
== END 2022-08-20 | disposition left against medical advice (07) ==
LOC: ANHED 08-20 02:24
PROVIDERS: Emergency Provider Emergency Medicine
DX: R10.9 Unspecified abdominal pain (principal)
CPT/HCPCS: 81003; 99199

== ENCOUNTER 2022-09-02 22:01 | Emergency (ER) | payer OTHER, MEDICAID, SELFPAY ==
--- NOTE | ~2022-09-02 | XR_ITS ---
EXAMINATION: XR foot LT min 3V DATE: 09/02/2022 22:22 INDICATION: Left foot injury post fall TECHNIQUE: Dorsoplantar, two oblique and lateral views of the left foot were obtained. COMPARISON: 05/11/2021 FINDINGS: Alignment is normal. Nondisplaced fracture along the plantar lateral cortex of the cuboid. Location a nd configuration suggestive this may be related to a compression injury nutcracker fracture . No oth er fractures identified. Joint spaces are normal. Mild soft tissue swelling at the lateral midfoot. IMPRESSION: 1. Nondisplaced fracture at the lateral cuboid. Reviewed, dictated and finalized at location A.
[2022-09-02 22:06] VITALS: BP 120/80; PULSE 87; RESP 18; TEMP 36.8; O2SAT 100
--- NOTE | 2022-09-02 23:27 | ED.LOWEXIN ---
HPI - Extremity Injury (Lower) General Chief Complaint: Extremity Injury, Lower Stated Complaint: left foot pain Time Seen by Provider: 09/02/22 23:03 Source: patient Mode of arrival: ambulatory Limitations: no limitations History of Present Illness HPI Narrative: Patient is a 46 y/o female who presents to the ED with report of left foot pain. Patient reports she tripped down the stairs on 08/24 and sustained an inversion injury to her left foot. She has had pain with ambulation since then to her left lateral midfoot and to the plantar surface of her foot. She states her foot seems to be more swollen at the end of the day. Denies any numbness or tingling. She has been taking ibuprofen and Aleve. Denies any other injuries from the fall, no HI or LOC. Related Data Allergies Allergy/AdvReac Type Severity Reaction Status Date / Time No Known Allergies Allergy Verified 03/11/22 20:51 Review of Systems Review of Systems: CONSTITUTIONAL: Denies fever, chills, or sweats. MUSCULOSKELETAL: See HPI. NEUROLOGIC: Denies tingling, numbness, or weakness. All systems reviewed & are unremarkable except as noted in HPI and below PMFSH Past Medical History Medical History Allergic rhinitis Asthma Atypical chest pain Bakers cyst Diabetes Essential hypertension Genital herpes GERD (gastroesophageal reflux disease) Hepatic steatosis High cholesterol HLD (hyperlipidemia) Hypertension Hypovitaminosis D IFG (impaired fasting glucose) Knee pain Lymphocytosis Pre-diabetes Vision abnormalities Surgical History Surgical History H/O tubal ligation H/O: hysterectomy History of reduction mammoplasty Family History Family History Mother Hypertension Diabetes mellitus Family history of alcoholism Family history of Alzheimer's disease Social History Social History Smoking status: Never smoker Second hand tobacco smoke exposure: No Alcohol intake: current Alcohol use details: Occasional Substance use: never Substance use type: does not use Gender identity (if verbalized by the patient): Female Exam Narrative: GENERAL: Well appearing, obese with BMI of 35.6, non-toxic, in no acute distress. HEAD: Normocephalic, atraumatic. NECK: Supple. No adenopathy, no masses. RESPIRATORY: Airway patent, respirations nonlabored. CARDIOVASCULAR: Regular rate and rhythm without murmurs, rubs, or gallops. Pedal pulses 2+ and equal bilaterally. MUSCULOSKELETAL: Moves all extremities. Strength/ROM intact without gross deformities. Tenderness to palpation to lateral mid to posterior edge of left foot, tenderness extending to the plantar surface of foot just proximal to the calcaneus on left side. Very mild swelling noted. No ecchymosis. No tenderness along medial or lateral malleoli or anterior ankle mortise. Sensation intact. SKIN: Warm, dry, normal color. No rashes. NEURO: A&O X3. Speech clear. Cranial nerves II-XII grossly intact. No ataxic movements. PSYCHIATRIC: Appropriate mood and affect. Normal interaction. Course Vital Signs Vital signs: Vital Signs Temperature 98.2 F 09/02/22 22:06 Pulse Rate 87 09/02/22 22:06 Respiratory Rate 18 09/02/22 22:06 Blood Pressure 120/80 09/02/22 22:06 Pulse Oximetry 100 09/02/22 22:06 Oxygen Delivery Room Air 09/02/22 22:06 Temperature 98.2 F 09/02/22 22:06 Pulse Rate 87 09/02/22 22:06 Respiratory Rate 18 09/02/22 22:06 Blood Pressure 120/80 09/02/22 22:06 Pulse Oximetry 100 09/02/22 22:06 Oxygen Delivery Room Air 09/02/22 22:06 MDM - Extremity Injury (Lower) MDM Narrative Medical decision making narrative: Patient presented to ED 9 days status post fall down stairs, inversion injury
[2022-09-02] MEDS: KETOROLAC (*BKC) 60 MG/2 ML VIAL IM (23:47)
== END 2022-09-02 23:45 | disposition home or self-care (01) ==
PROVIDERS: Emergency Provider Physician Assistant; PCP Nurse Practitioner
DX: S92.215A Nondisplaced fracture of cuboid bone of left foot, initial encounter for closed fracture (principal); J45.909 Unspecified asthma, uncomplicated; E11.9 Type 2 diabetes mellitus without complications; E78.00 Pure hypercholesterolemia, unspecified; E55.9 Vitamin D deficiency, unspecified; K21.9 Gastro-esophageal reflux disease without esophagitis; Z90.710 Acquired absence of both cervix and uterus; Z79.84 Long term (current) use of oral hypoglycemic drugs; W10.9XXA Fall (on) (from) unspecified stairs and steps, initial encounter
CPT/HCPCS: 29515; 73630; 96372; 99284; J1885

== ENCOUNTER 2022-09-29 14:45 | Outpatient (CLI) | payer OTHER, MEDICAID, SELFPAY ==
--- NOTE | ~2022-09-29 | MM_ITS ---
EXAMINATION: MM screening laina BI w nancie HISTORY: Screening mammogram TECHNIQUE: Craniocaudal and mediolateral oblique 3-D tomosynthesis images were obtained and synthetic 2-D images were generated. CAD analysis was submitted and interpreted. COMPARISON: 08/17/2020 bilateral screening mammogram 02/13/2020 diagnostic right mammogram 07/29/2019 bilateral screening mammogram BREAST PARENCHYMAL COMPOSITION: There are scattered areas of fibroglandular density. FINDINGS: Stable postoperative changes from bilateral reduction mammoplasty, with scattered benign ca lcifications. There is no evidence of suspicious mass, calcification, or architectural distortion to suggest malignancy in either breast. There has been no suspicious interval change. IMPRESSION: 1. Status post bilateral reduction mammoplasty. No mammographic evidence of malignancy. 2. Recommend routine screening mammography in one year. BI-RADS Category 2: Benign finding(s). Reviewed, dictated and finalized at location A. IMPRESSION: 1. Status post bilateral reduction mammoplasty. No mammographic evidence of mal ignancy. 2. Recommend routine screening mammography in one year. BI-RADS Category 2: Benign finding(s).
== END 2022-09-29 14:46 | disposition home or self-care (01) ==
LOC: ANHIMG 14:48
PROVIDERS: PCP Nurse Practitioner; Visit Provider Nurse Practitioner
DX: Z12.31 Encounter for screening mammogram for malignant neoplasm of breast (principal)
CPT/HCPCS: 77063; 77067

== ENCOUNTER 2023-01-08 08:56 | Emergency (ER) | payer OTHER, MEDICAID, SELFPAY ==
--- NOTE | ~2023-01-08 | XR_ITS ---
XR lumbar spine 2-3V 01/08/2023 09:52 Indication: Low back pain Procedure: 3 views lumbar spine Comparison: 01/04/2021 Findings: Vertebral body heights are maintained. There is mild disc narrowing at L5-S1. No fracture o r traumatic malalignment. Pedicles intact. Sacral foramen are symmetric. No evidence for spondylolysi s or spondylolisthesis. Impression: 1: Mild lumbar spondylosis. Reviewed, dictated and finalized at location A. Impression: 1: Mild lumbar spondylosis.
[2023-01-08 09:09] VITALS: BP 131/93; PULSE 78; RESP 16; TEMP 36.9; O2SAT 100
--- NOTE | 2023-01-08 09:32 | ED.GENADULT ---
HPI - General Adult General Chief complaint: Back Pain/Injury Stated complaint: LOW BACK PAIN Source: patient Mode of arrival: ambulatory Limitations: no limitations History of Present Illness HPI narrative: Patient presents for evaluation of low back pain for last 1.5 weeks. She has a hx of low back pain for which she previously saw pain management. She had injections in the past which seemed to help. Denies any recent injury. States pain is constant, pulsating, rated 8/10 severity. Pain radiates into the left buttock. No saddle anesthesia, bladder/ bowel incontinence. She saw her PCP and was given what sounds to be a medrol dose linus. She states it was ineffective. She has tried tylenol which seems to help. Related Data Home Medications Medication Instructions Recorded Confirmed hydrochlorothiazide 12.5 mg capsule mg 01/08/23 01/08/23 Allergies Allergy/AdvReac Type Severity Reaction Status Date / Time No Known Allergies Allergy Verified 01/08/23 09:13 Review of Systems Review of Systems: CONSTITUTIONAL: Denies fever, chills, or sweats. EYES: Denies visual changes, redness, or discharge. ENT: Denies rhinorrhea, congestion, sore throat, or otalgia. CARDIOVASCULAR: Denies chest pain, palpitations, or edema. RESPIRATORY: Denies cough or dyspnea. GASTROINTESTINAL: Denies abdominal pain, nausea, vomiting, or diarrhea. GENITOURINARY: Denies dysuria or hematuria. SKIN: Denies rash or itching. MUSCULOSKELETAL: Reports low back pain with radiation into the left buttock NEUROLOGIC: Denies headache, numbness, dizziness, or weakness. PSYCHIATRIC: Denies anxiety or depression. [facility] Past Medical History Medical History Allergic rhinitis Asthma Atypical chest pain Bakers cyst Diabetes Essential hypertension Genital herpes GERD (gastroesophageal reflux disease) Hepatic steatosis High cholesterol HLD (hyperlipidemia) Hypertension Hypovitaminosis D IFG (impaired fasting glucose) Knee pain Lymphocytosis Pre-diabetes Vision abnormalities Surgical History Surgical History H/O tubal ligation H/O: hysterectomy History of reduction mammoplasty Family History Family History Mother Hypertension Diabetes mellitus Family history of alcoholism Family history of Alzheimer's disease Social History Social History Smoking status: Never smoker Second hand tobacco smoke exposure: No Alcohol intake: never Alcohol use details: Occasional Substance use: never Substance use type: does not use Lack of Transportation: No Lack of Food: Never True Current Housing: I Have Housing Concerned About Future Housing: No Difficulty Paying Gas/Electric Bills: No Difficulty Paying for Meds: No Currently Unemployed: No Education: Bachelor's Degree Difficulty w/ Childcare or Family Care: No Gender identity (if verbalized by the patient): Female Sexual Orientation (if Verbalized by the Patient): Straight or Heterosexual Spiritual care concerns: No Exam Narrative: GENERAL: Well-appearing, well-nourished, and in no acute distress. HEAD: Normocephalic, atraumatic. EYES: PERRLA and EOMI. ENT: Nares clear, no rhinorrhea or epistaxis. Mucous membranes moist. Oropharynx without tonsillar hypertrophy exudate or other lesions. Bilateral TMs pearly morrow nonbulging NECK: Supple. No adenopathy or masses. No carotid bruits or JVD CHEST: Clear to auscultation. No respiratory distress. No wheezes rales or rhonchi HEART: Regular rate and rhythm. No murmur heard. Normal peripheral pulses. ABDOMEN: Soft, nontender, nondistended, normal active bowel sounds. BACK: Tenderness diffusely in lumbar spinal region. EXTREMITIES: Normal range of motion. No edema. SKIN:
== END 2023-01-08 10:18 | disposition home or self-care (01) ==
PROVIDERS: Emergency Provider Nurse Practitioner; PCP Nurse Practitioner
DX: M47.817 Spondylosis without myelopathy or radiculopathy, lumbosacral region (principal); J45.909 Unspecified asthma, uncomplicated; E11.9 Type 2 diabetes mellitus without complications; I10 Essential (primary) hypertension; K21.9 Gastro-esophageal reflux disease without esophagitis; E78.00 Pure hypercholesterolemia, unspecified; E78.5 Hyperlipidemia, unspecified; K76.0 Fatty (change of) liver, not elsewhere classified
CPT/HCPCS: 72100; 99213; G0463

== ENCOUNTER 2023-04-14 08:08 | Emergency (ER) | payer OTHER, MEDICAID, SELFPAY ==
--- NOTE | 2023-04-14 08:10 | ED.GENADULT ---
HPI - General Adult General Chief complaint: Urogenital-Female Stated complaint: Side/Rib pain Time Seen by Provider: 04/14/23 08:27 Source: patient, RN notes reviewed and old records reviewed Mode of arrival: ambulatory Limitations: no limitations History of Present Illness HPI narrative: 37-year-old female presents to the [facility] of left flank pain that started yesterday. Has had nausea. Pain in the lower back/left abdomen gets worse when she urinates. Denies any burning with urination. States decreased amount of urination. Denies frequency or urgency. Patient reports pain 12/25 Onset (ago): day(s) (1) Treatments prior to arrival: NSAID Related Data Home Medications Medication Instructions Recorded Confirmed hydrochlorothiazide 12.5 mg capsule 12.5 mg PO DAILY 01/08/23 04/14/23 gabapentin 100 mg capsule 100 mg PO DIRECTED 04/14/23 04/14/23 valacyclovir 500 mg tablet 500 mg PO DIRECTED 04/14/23 04/14/23 Allergies Allergy/AdvReac Type Severity Reaction Status Date / Time No Known Allergies Allergy Verified 04/14/23 08:33 Review of Systems Review of Systems: All systems reviewed & are unremarkable except as noted in HPI and below Constitutional: Constitutional: Reports no additional constitutional complaints Eyes: Eyes: Reports no additional eye complaints ENT: Reports system reviewed and no additional complaints, except as documented Cardiovascular: Cardiovascular: Reports no additional cardiovascular complaints, Denies chest pain and Denies dyspnea Respiratory: Respiratory: Reports no additional respiratory complaints, Denies chest congestion, Denies cough and Denies dyspnea Gastrointestinal: Gastrointestinal: Reports no additional gastrointestinal complaints, Denies abdominal pain, Denies nausea and Denies vomiting Genitourinary: Genitourinary: Reports as per HPI Musculoskeletal: Musculoskeletal: Reports no additional musculoskeletal complaints Integumentary/Breasts: Skin/Breast: Reports system reviewed and no additional complaints, except as docu Neurologic: Reports system reviewed and no additional complaints, except as documented Psychiatric: Psychiatric: Reports no additional psychiatric complaints Allergic/Immunologic: Allergic/Immunologic: Reports no additional allergic/immunologic complaints PMFSH Past Medical History Medical History Allergic rhinitis Asthma Atypical chest pain Bakers cyst Diabetes Essential hypertension Genital herpes GERD (gastroesophageal reflux disease) Hepatic steatosis High cholesterol HLD (hyperlipidemia) Hypertension Hypovitaminosis D IFG (impaired fasting glucose) Knee pain Lymphocytosis Pre-diabetes Vision abnormalities Surgical History Surgical History H/O tubal ligation H/O: hysterectomy History of reduction mammoplasty Family History Family History Mother Hypertension Diabetes mellitus Family history of alcoholism Family history of Alzheimer's disease Social History Social History Smoking status: Never smoker Second hand tobacco smoke exposure: No Alcohol intake: never Alcohol use details: Occasional Substance use: never Substance use type: does not use Lack of Transportation: No Lack of Food: Never True Current Housing: I Have Housing Concerned About Future Housing: No Difficulty Paying Gas/Electric Bills: No Difficulty Paying for Meds: No Currently Unemployed: No Education: Bachelor's Degree Difficulty w/ Childcare or Family Care: No Gender identity (if verbalized by the patient): Female Sexual Orientation (if Verbalized by the Patient): Straight or Heterosexual Spiritual care concerns: No Comments At the time of my signature, I reviewed and agree with the nursing past me
[2023-04-14 08:19] VITALS: BP 146/96; PULSE 77; RESP 16; TEMP 36.9; O2SAT 100
== END 2023-04-14 08:35 | disposition short-term general hospital (02) ==
PROVIDERS: Emergency Provider Nurse Practitioner; PCP Nurse Practitioner
DX: R10.9 Unspecified abdominal pain (principal); J45.909 Unspecified asthma, uncomplicated; E11.9 Type 2 diabetes mellitus without complications; K21.9 Gastro-esophageal reflux disease without esophagitis; K76.0 Fatty (change of) liver, not elsewhere classified; E78.00 Pure hypercholesterolemia, unspecified; E78.5 Hyperlipidemia, unspecified; I10 Essential (primary) hypertension
CPT/HCPCS: 81003; 99212; G0463

== ENCOUNTER 2023-04-19 15:11 | Outpatient (CLI) | payer OTHER, MEDICAID, SELFPAY ==
--- NOTE | ~2023-04-19 | MR_ITS ---
EXAMINATION: MR lumbar spine wo con DATE: 04/19/2023 15:59 INDICATION: Low back pain. Bilateral leg weakness. TECHNIQUE: Magnetic resonance imaging (MRI) of the lumbar spine was performed without intravenous con trast. Sequences included sagittal T2-weighted FSE, sagittal T2-weighted FS FSE, sagittal T1-weighted FSE, and axial T2-weighted FSE. COMPARISON: Lumbar spine MRI 03/09/2021 FINDINGS: There is 6 degrees levocurvature of lumbar spine. Vertebral body heights are normal. There is mildly decreased disc height at L4-L5. The distal spinal cord signal intensity is normal. The conu s medullaris is at L1. The following disc levels are specifically discussed: L1-L2: The disc does not extend beyond the endplate margin. There is mild bilateral facet joint osteo arthritis. There is no neural foraminal stenosis. There is no central canal stenosis. L2-L3: The disc does not extend beyond the endplate margin. There is mild bilateral facet joint osteo arthritis. There is no neural foraminal stenosis. There is no central canal stenosis. L3-L4: The disc is bulging and has an annular fissure. There is mild bilateral facet joint osteoarthr itis. There is mild bilateral neural foraminal stenosis. There is mild central canal stenosis. L4-L5: The disc is bulging and has an annular fissure. There is mild bilateral facet joint osteoarthr itis. There is mild bilateral neural foraminal stenosis. There is mild central canal stenosis. L5-S1: There is a central extrusion. There is severe bilateral facet joint osteoarthritis. There is m ild bilateral neural foraminal stenosis. There is mild central canal stenosis. IMPRESSION: 1. Mild lumbar spondylosis, worsened from 03/09/2021. Reviewed, dictated and finalized at location E. 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
== END 2023-04-19 15:12 ==
LOC: MICIMG 15:12
PROVIDERS: PCP Nurse Practitioner; Visit Provider Nurse Practitioner
DX: M47.26 Other spondylosis with radiculopathy, lumbar region (principal)
CPT/HCPCS: 72148

== ENCOUNTER 2023-07-04 06:13 | Emergency (ER) | payer OTHER, MEDICAID, SELFPAY ==
--- NOTE | ~2023-07-04 | CT_ITS ---
CT of the Abdomen and Pelvis: Indication: Abdominal pain Technique: 2.5 mm axial scans were obtained through the abdomen and pelvis following intravenous adm inistration of 100 cc of Omnipaque 350. Dose reduction technique was used on this scan by utilizing a utomated exposure control and iterative reconstruction technique. The dose-length product (DLP) was 4 86.37 mGy-cm. COMPARISON: 06/01/2020 Findings: Scans through the lung bases are unremarkable. The liver, spleen, pancreas, gallbladder, adrenals and kidneys are within normal limits. No evidence of aortic aneurysm. No lymphadenopathy. No bowel obstruction or bowel wall thickening. There is no evidence to suggest acute appendicitis. Images through the pelvis were performed. Urinary bladder unremarkable. No pelvic mass seen. No ascit es. Impression: No significant abnormalities seen. Reviewed, dictated and finalized at [facility]– [place]. Impression: No significant abnormalities seen.
[2023-07-04 06:21] VITALS: BP 131/85; PULSE 92; RESP 16; TEMP 37.2; O2SAT 100
[2023-07-04 06:31] VITALS: BP 131/85; PULSE 92; RESP 18; TEMP 37.2; O2SAT 100
--- NOTE | 2023-07-04 07:33 | ED.ABDPAIN ---
HPI - Abdominal Pain General Chief Complaint: Abdominal Pain Stated Complaint: LLQ abd pain Time Seen by Provider: 07/04/23 07:02 History of Present Illness HPI narrative: 47 Year old female present to the emergency department for evaluation of left lower quadrant abdominal pain that started on Monday night. Patient states his symptoms have been persistent since Monday. Patient reports left-sided abdominal pain. Patient states he does have some change in urination. Patient reports she was having some issues with constipation, took some Dulcolax and had no change in her symptoms. Related Data Home Medications Medication Instructions Recorded Confirmed hydrochlorothiazide 12.5 mg capsule 12.5 mg PO DAILY 01/08/23 04/14/23 gabapentin 100 mg capsule 100 mg PO DIRECTED 04/14/23 04/14/23 valacyclovir 500 mg tablet 500 mg PO DIRECTED 04/14/23 04/14/23 Allergies Allergy/AdvReac Type Severity Reaction Status Date / Time No Known Allergies Allergy Verified 07/04/23 06:33 Review of Systems Review of Systems: All systems reviewed & are unremarkable except as noted in HPI and below PMFSH Past Medical History Medical History Allergic rhinitis Asthma Atypical chest pain Bakers cyst Diabetes Essential hypertension Genital herpes GERD (gastroesophageal reflux disease) Hepatic steatosis High cholesterol HLD (hyperlipidemia) Hypertension Hypovitaminosis D IFG (impaired fasting glucose) Knee pain Lymphocytosis Pre-diabetes Vision abnormalities Surgical History Surgical History H/O tubal ligation H/O: hysterectomy History of reduction mammoplasty Family History Family History Mother Hypertension Diabetes mellitus Family history of alcoholism Family history of Alzheimer's disease Social History Social History Smoking status: Never smoker Second hand tobacco smoke exposure: No Alcohol intake: never Alcohol use details: Occasional Substance use: never Substance use type: does not use Lack of Transportation: No Lack of Food: Never True Current Housing: I Have Housing Concerned About Future Housing: No Difficulty Paying Gas/Electric Bills: No Difficulty Paying for Meds: No Currently Unemployed: No Education: Bachelor's Degree Difficulty w/ Childcare or Family Care: No Gender identity (if verbalized by the patient): Female Sexual Orientation (if Verbalized by the Patient): Straight or Heterosexual Spiritual care concerns: No Exam Narrative: APPEARANCE: Well appearing, no pain, no distress, well-nourished. HEAD: normocephalic, atraumatic. EYES: PERRLA/EOMI, conjunctivae clear. NOSE: Normal no drainage EARS:TMS clear with good light reflex. THROAT: Pharynx clear, no exudate. NECK: Supple. No adenopathy, no masses. RESPIRATORY: Airway patent, respirations nonlabored. Clear to auscultation bilaterally, no rales, rhonchi, wheezing. CARDIOVASCULAR: Regular rate and rhythm without murmurs rubs or gallops. ABDOMINAL: Soft, left lower quadrant pain MUSCULOSKELETAL: Moves all extremities. Strength/ROM intact, No edema, No calf tenderness. NEURO: Alert. Cranial nerves II through XII intact. Grossly intact SKIN: Warm, dry. Normal Color Course Course Emergency Course: Patient was discharged to home Vital Signs Vital signs: Vital Signs Temperature 99 F 07/04/23 06:21 Pulse Rate 92 07/04/23 06:21 Respiratory Rate 16 07/04/23 06:21 Blood Pressure 131/85 07/04/23 06:21 Pulse Oximetry 100 07/04/23 06:21 Oxygen Delivery Room Air 07/04/23 06:21 Temperature 99.0 F 07/04/23 06:31 Pulse Rate 70 07/04/23 09:37 Respiratory Rate 18 07/04/23 09:37 Blood Pressure 132/72 07/04/23 09:37 Pulse Oximetry 100 07/04/23 09
[2023-07-04] MEDS: ONDANSETRON INJ 4 MG/2 ML VIAL IV PUSH (07:47)
[2023-07-04] MEDS: HYDROmorphone HCL INJ (*CRX) 1 MG/ML SYR 0.5 MG IV PUSH (07:47)
[2023-07-04] MEDS: SODIUM CHLORIDE 0.9% IV 1,000 ML 999 ML IV CONT (07:47)
[2023-07-04 08:39] LABS: Alanine Aminotransferase 42 U/L (6-35); Albumin Level 4.3 g/dL (3.5-5.1); Alkaline Phosphatase 90 U/L (38-126); Anion Gap 7 mmol/L (8-16); Aspartate Amino Transferase 40 U/L (14-36); Basophils Absolute Auto 0.1 K/mm3 (0.0-0.1); Basophils Percent Auto 0.6 % (0.2-1.2); Bilirubin,Total 0.5 mg/dL (0.2-1.3); Blood Urea Nitrogen 5 mg/dL (7-17); Calcium 9.2 mg/dL (8.4-10.2); Carbon Dioxide 28 mmol/L (22-30); Chloride 104 mmol/L (98-107); Eosinophils Absolute Auto 0.2 K/mm3 (0-0.3); Eosinophils Percent Auto 2.9 % (0-4.4); Estimated CRCL calculation 102 ml/min; Estimated Glomerular Filt Rate > 60; Glucose 145 mg/dL (65-110); Hematocrit 35.5 % (37.0-47.0); Hemoglobin 11.4 g/dL (12.0-15.0); Immature Granulocyte Absolute 0.02 K/mm3 (0.00-0.031); Immature Granulocyte Percent A 0.2 % (0-0.5); Lipase 29 U/L (23-300); Lymphocytes Absolute Auto 3.51 K/mm3 (0.9-3.2); Lymphocytes Percent Auto 43.7 % (18.3-44.2); Mean Corpuscular HGB Conc 32.1 g/dl (32-36); Mean Corpuscular Hemoglobin 30.5 pg (26-34); Mean Corpuscular Volume 94.9 fl (80-100); Mean Platelet Volume 10.1 fl (7.4-10.4); Monocytes Absolute Auto 0.6 K/mm3 (0.1-0.6); Monocytes Percent Auto 6.8 % (2.6-8.5); Neutrophils Absolute Auto 3.7 K/mm3 (1.3-6.7); Neutrophils Percent Auto 45.8 % (45.5-73.1); Platelet Count Result 361 k/mm3 (150-375); Potassium 3.8 mmol/L (3.4-5.0); Red Blood Count 3.74 M/mm3 (4.2-5.4); Red Cell Distribution Width 12.6 % (11.5-14.5); Sodium 139 mmol/L (137-145)
--- NOTE | 2023-07-04 08:58 | PC.NURSE ---
pt taken to CT at this time
[2023-07-04 08:59] LABS: Appearance Urine Clear (Clear); Bacteria Urine None Seen /hpf; Bilirubin Urine 1+ (Negative); Blood Urine Negative (Negative); Color Urine Dark Yellow (Yellow); Glucose Urine UA Negative (Negative); Ketones Urine Trace mg/dL (Negative); Leukocyte Esterase Ur Negative LEU/UL (Negative); Mucus Urine Present /lpf; Nitrate Urine Positive (Negative); Non Pathogenic Casts 0-2; Protein Urine Negative (Negative); RBC Urine 0-2 /hpf (0-2); Squamous Epithelial Cell Urine Occasional /hpf (Few); WBC Urine 0-5 /hpf (0-3); pH Urine 5.5 (5.0-9.0)
[2023-07-04 09:02] LABS: Add Urine Microscopic? YES
[2023-07-04 09:37] VITALS: BP 132/72; PULSE 70; RESP 18; O2SAT 100
[2023-07-04 09:44] LABS: Partial Thromboplastin Time 27.9 Seconds (22.3-36.8)
== END 2023-07-04 10:04 | disposition home or self-care (01) ==
PROVIDERS: Emergency Provider Emergency Medicine; PCP Nurse Practitioner
DX: R10.32 Left lower quadrant pain (principal); J45.909 Unspecified asthma, uncomplicated; E11.9 Type 2 diabetes mellitus without complications; I10 Essential (primary) hypertension; E78.00 Pure hypercholesterolemia, unspecified; K21.9 Gastro-esophageal reflux disease without esophagitis; Z90.710 Acquired absence of both cervix and uterus; Z79.84 Long term (current) use of oral hypoglycemic drugs
CPT/HCPCS: 36415; 74177; 80053; 83690; 85025; 85610; 85730; 96361; 96374; 96375; 99284; J1170; J2405; J7030; Q9967

== ENCOUNTER 2023-11-05 05:20 | Emergency (ER) | payer OTHER, SELFPAY ==
--- NOTE | ~2023-11-05 | XR_ITS ---
XR chest 1V portable DATE: 11/05/2023 05:54 INDICATION: Covid infection TECHNIQUE: Portable AP chest on 11/05/2023 at 0551 hours COMPARISON: 11/04/2021 PA and lateral chest FINDINGS: Normal heart size. No hilar or mediastinal enlargement. No pulmonary infiltrate or consolid ation, pleural effusion or pulmonary vascular congestion or pneumothorax. IMPRESSION: No active cardiopulmonary disease Reviewed, dictated and finalized at location A.
[2023-11-05 05:17] VITALS: BP 145/102; PULSE 81; RESP 20; TEMP 36.9; O2SAT 100
[2023-11-05 05:26] VITALS: O2SAT 100
--- NOTE | 2023-11-05 05:30 | ECG_ITS ---
Test Date: 2023-11-05 05:57:28 Measurements Intervals [place] Rate: 75 P: 53 LA: 166 QRS: 30 QRSD: 104 T: 11 QT: 376 QTc: 421 Interpretive Statements SINUS RHYTHM MINIMAL Q WAVES- HIGH LATERAL LEADS BORDERLINE ECG No previous ECG available for comparison Electronically Signed On 11-05-2023 07:31:23 CDT by Med Grimaldo D.O.
[2023-11-05] MEDS: ACETAMINOPHEN 500 MG TABLET 1000 MG PO (05:41)
[2023-11-05] MEDS: KETOROLAC 15 MG/ML VIAL (*BKC) IV PUSH (05:46)
[2023-11-05] MEDS: SODIUM CHLORIDE 0.9% IV 1,000 ML 999 ML IV CONT (05:46)
--- NOTE | 2023-11-05 06:00 | PC.NURSE ---
Patient ambulated to the bathroom and back to her room with a steady unassisted gait.
[2023-11-05 06:02] LABS: Basophils Percent Auto 0.7 % (0.2-1.2); Eosinophils Absolute Auto 0.3 K/mm3 (0-0.3); Eosinophils Percent Auto 6.8 % (0-4.4); Hematocrit 36.3 % (37.0-47.0); Hemoglobin 11.9 g/dL (12.0-15.0); Lymphocytes Absolute Auto 2.56 K/mm3 (0.9-3.2); Lymphocytes Percent Auto 62.4 % (18.3-44.2); Mean Corpuscular HGB Conc 32.8 g/dl (32-36); Mean Corpuscular Hemoglobin 30.7 pg (26-34); Mean Corpuscular Volume 93.6 fl (80-100); Mean Platelet Volume 9.5 fl (7.4-10.4); Monocytes Absolute Auto 0.5 K/mm3 (0.1-0.6); Monocytes Percent Auto 12.4 % (2.6-8.5); Neutrophils Absolute Auto 0.7 K/mm3 (1.3-6.7); Neutrophils Percent Auto 17.7 % (45.5-73.1); Platelet Count Result 307 k/mm3 (150-375); Red Blood Count 3.88 M/mm3 (4.2-5.4); Red Cell Distribution Width 12.2 % (11.5-14.5); White Blood Count 4.1 K/mm3 (4.5-10.0)
[2023-11-05 06:03] LABS: Alanine Aminotransferase 31 U/L (6-35); Albumin Level 4.5 g/dL (3.5-5.1); Alkaline Phosphatase 82 U/L (38-126); Anion Gap 13 mmol/L (4-12); Aspartate Amino Transferase 27 U/L (14-36); Bilirubin,Total 0.4 mg/dL (0.2-1.3); Blood Urea Nitrogen 9 mg/dL (7-17); Calcium 8.9 mg/dL (8.4-10.2); Carbon Dioxide 21 mmol/L (22-30); Chloride 104 mmol/L (98-107); Estimated CRCL calculation 100 ml/min; Estimated Glomerular Filt Rate > 60; Glucose 127 mg/dL (65-110); Potassium 3.9 mmol/L (3.4-5.0); Sodium 138 mmol/L (137-145)
[2023-11-05 06:50] VITALS: BP 120/79; PULSE 78; RESP 17; O2SAT 99
--- NOTE | 2023-11-05 07:09 | ED.GENADULT ---
HPI - General Adult General Chief complaint: Upper Respiratory Infection Stated complaint: WORSENING COVID S/S Time Seen by Provider: 11/05/23 07:00 History of Present Illness HPI narrative: Patient is a 47-year-old female who presents ER with anxiety and sore throat. Recently diagnosed with COVID. Woke up this morning and had a coughing fit and could not breathe and became distressed. No chest pain chest pressure. No abdominal discomfort. She had taken some cough medicine that she thinks precipitated her symptoms as well. After receiving Tylenol on IV fluids in the ER she feels much better. She has no additional concerns. Related Data Home Medications Medication Instructions Recorded Confirmed hydrochlorothiazide 12.5 mg capsule 12.5 mg PO DAILY 01/08/23 04/14/23 gabapentin 100 mg capsule 100 mg PO DIRECTED 04/14/23 04/14/23 valacyclovir 500 mg tablet 500 mg PO DIRECTED 04/14/23 04/14/23 Allergies Allergy/AdvReac Type Severity Reaction Status Date / Time No Known Allergies Allergy Verified 11/05/23 05:24 Review of Systems Review of Systems: All systems reviewed & are unremarkable except as noted in HPI and below Constitutional: Constitutional: Reports chills, Reports fatigue and Reports fever(s) ENT: Reports nasal congestion and Reports sore throat Respiratory: Respiratory: Reports chest congestion, Reports cough, Denies dyspnea and Denies wheezing Gastrointestinal: Gastrointestinal: Reports no additional gastrointestinal complaints PMFSH Past Medical History Medical History Allergic rhinitis Asthma Atypical chest pain Bakers cyst Diabetes Essential hypertension Genital herpes GERD (gastroesophageal reflux disease) Hepatic steatosis High cholesterol HLD (hyperlipidemia) Hypertension Hypovitaminosis D IFG (impaired fasting glucose) Knee pain Lymphocytosis Pre-diabetes Vision abnormalities Surgical History Surgical History H/O tubal ligation H/O: hysterectomy History of reduction mammoplasty Family History Family History Mother Hypertension Diabetes mellitus Family history of alcoholism Family history of Alzheimer's disease Social History Social History Smoking status: Never smoker Second hand tobacco smoke exposure: No Alcohol intake: never Alcohol use details: Occasional Substance use: never Substance use type: does not use Lack of Transportation: No Lack of Food: Never True Current Housing: I Have Housing Concerned About Future Housing: No Difficulty Paying Gas/Electric Bills: No Difficulty Paying for Meds: No Currently Unemployed: No Education: Bachelor's Degree Difficulty w/ Childcare or Family Care: No Gender identity (if verbalized by the patient): Female Sexual Orientation (if Verbalized by the Patient): Straight or Heterosexual Spiritual care concerns: No Exam Narrative: GENERAL: Well-appearing, obese, and in no acute distress. HEAD: Normocephalic, atraumatic. ENT: Mucous membranes moist. CHEST: Clear to auscultation. No respiratory distress. HEART: Regular rate and rhythm. Normal peripheral pulses. EXTREMITIES: Normal range of motion. No edema. NEURO: Alert and oriented x3. PSYCH: Normal mood and affect. Course Course Emergency Course: Patient resting comfortably. Feels improved after IV fluid, Toradol, Tylenol. Discussed expected course of illness. Recommend nasal saline for nasal congestion. Vital Signs Vital signs: Vital Signs Temperature 98.4 F 11/05/23 05:17 Pulse Rate 81 11/05/23 05:17 Respiratory Rate 20 11/05/23 05:17 Blood Pressure 145/102 H 11/05/23 05:17 Pulse Oximetry 100 11/05/23 05:17 Oxygen Delivery Room Air 11/05/23 05:17 Temperature 98.4 F
[2023-11-05 07:43] VITALS: BP 118/74; PULSE 73; RESP 18; O2SAT 99
== END 2023-11-05 07:45 | disposition home or self-care (01) ==
PROVIDERS: Emergency Medicine; Emergency Provider Emergency Medicine; PCP Nurse Practitioner
DX: U07.1 COVID-19 (principal); E11.9 Type 2 diabetes mellitus without complications; E78.5 Hyperlipidemia, unspecified; I10 Essential (primary) hypertension
CPT/HCPCS: 36415; 71045; 80053; 85025; 93005; 96361; 96374; 99284; A9270; J1885; J7030

== ENCOUNTER 2024-01-30 10:38 | Outpatient (CLI) | payer OTHER, SELFPAY ==
--- NOTE | ~2024-01-30 | MMUS_ITS ---
EXAMINATION: MM diagnostic laina BI w nancie, US breast RT complete HISTORY: Palpable lump right breast at 9:00 TECHNIQUE: Additional 3-D tomosynthesis images of the right breast were performed and synthetic 2-D i mages were generated. CAD analysis was submitted and interpreted. High resolution complete right [address] ultrasound was performed. COMPARISON: Comparison to multiple prior studies sequentially, with oldest reviewed study dated 06/2016. BREAST PARENCHYMAL COMPOSITION: Not dense: There are scattered areas of fibroglandular density. FINDINGS: MAMMOGRAPHIC FINDINGS: There are coarse calcifications in the area of palpable concern in the upper aspect of the right [address], likely representing fat necrosis. There are other areas of fat necrosis in the right breast, cons istent with prior breast reduction surgery. There is distortion of both breasts, consistent with prio r breast reduction surgery. There is a focal architectural distortion in the mid outer quadrant of th e right breast which is poorly defined, although increased compared with prior studies. ULTRASOUND: Complete US of all 4 quadrants of the right breast/s and retroareolar region was reviewed. At 7:00, t here is a 1 cm cyst. At 9:00, 3 cm from the nipple there is a complex heterogeneous area with posteri or shadowing measuring 9 x 8 x 5 mm. No internal vascularity. IMPRESSION: 1. Complex 9 mm hypoechoic right breast mass at 9:00, 3 cm from the nipple. This likely corresponds t o the area of architectural distortion seen on mammography. 2. Ultrasound-guided right breast biopsy recommended. BI-RADS category 4, suspicious findings. Reviewed, dictated and finalized at location B. IMPRESSION: 1. Complex 9 mm hypoechoic right breast mass at 9:00, 3 cm from the nipple. Thi s likely corresponds to the area of architectural distortion seen on mammograph y. 2. Ultrasound-guided right breast biopsy recommended. BI-RADS category 4, suspicious findings.
== END 2024-01-30 10:39 | disposition home or self-care (01) ==
PROVIDERS: PCP Nurse Practitioner; Visit Provider Student in an Organized Health Care Education/Training Program
DX: N63.10 Unspecified lump in the right breast, unspecified quadrant (principal); N64.4 Mastodynia
CPT/HCPCS: 76641; 77062; 77066; G0279

== ENCOUNTER 2024-03-19 13:47 | Outpatient (CLI) | payer OTHER, SELFPAY ==
[2024-03-19 14:19] LABS: Basophils Percent Auto 0.4 % (0.2-1.2); Eosinophils Absolute Auto 0.3 K/mm3 (0-0.3); Eosinophils Percent Auto 4.1 % (0-4.4); Hematocrit 35.8 % (37.0-47.0); Hemoglobin 11.8 g/dL (12.0-15.0); Immature Granulocyte Absolute 0.02 K/mm3 (0.00-0.031); Immature Granulocyte Percent A 0.3 % (0-0.5); Lymphocytes Absolute Auto 3.78 K/mm3 (0.9-3.2); Mean Corpuscular Hemoglobin 30.6 pg (26-34); Monocytes Absolute Auto 0.5 K/mm3 (0.1-0.6); Monocytes Percent Auto 6.3 % (2.6-8.5); Neutrophils Absolute Auto 2.9 K/mm3 (1.3-6.7); Neutrophils Percent Auto 38.9 % (45.5-73.1); Platelet Count Result 348 k/mm3 (150-375); Red Blood Count 3.85 M/mm3 (4.2-5.4); Red Cell Distribution Width 12.5 % (11.5-14.5); White Blood Count 7.6 K/mm3 (4.5-10.0)
[2024-03-19 17:07] LABS: Alanine Aminotransferase 34 U/L (6-35); Albumin Level 4.8 g/dL (3.5-5.1); Alkaline Phosphatase 95 U/L (38-126); Anion Gap 6 mmol/L (4-12); Aspartate Amino Transferase 58 U/L (14-36); Bilirubin,Total 0.6 mg/dL (0.2-1.3); Blood Urea Nitrogen 6 mg/dL (7-17); Calcium 9.5 mg/dL (8.4-10.2); Carbon Dioxide 27 mmol/L (22-30); Chloride 106 mmol/L (98-107); Estimated Glomerular Filt Rate > 60; Glucose 96 mg/dL (65-110); Potassium 4.2 mmol/L (3.4-5.0); Sodium 139 mmol/L (137-145)
[2024-03-19 17:37] LABS: Iron 101 ug/dL (37-170)
[2024-03-19 17:46] LABS: Percent Iron Saturation 28 % (20-50)
[2024-03-19 18:12] LABS: Folic Acid 8.3 ng/mL (2.76->20)
[2024-03-22 12:29] LABS: Soluble Transferrin Receptor 1.52 mg/L (0.76-1.76)
[2024-03-23 05:49] LABS: Methylmalonic Acid 79 nmol/L (55-335)
[2024-03-25 07:57] LABS: Reference Lab Test Name THAL HGBOPATHY PANEL
== END 2024-03-19 13:48 | disposition home or self-care (01) ==
LOC: ANHLAB 13:48
PROVIDERS: PCP Nurse Practitioner; Visit Provider Internal Medicine Hematology & Oncology
DX: D64.9 Anemia, unspecified (principal)
CPT/HCPCS: 36415; 80053; 82607; 82728; 82746; 83020; 83540; 83550; 83921; 84238; 85014; 85018; 85025; 85041

== ENCOUNTER 2024-05-23 00:43 | Day surgery (SDC) | payer OTHER, SELFPAY ==
[2024-05-08 14:06] VITALS: BMI 34.2
--- OUTSIDE RECORDS SUMMARY | 2024-05-23 00:46 | XMS_ITS | Patient Health Summary ---
Author Organization [facility] Address [address] [facility] [place] [address] Care Team Providers Care Director Of Capital Giving Name Role Phone Farhad Fuchs MD Primary Care Provider [phone] Note from [facility],non-owned Affiliates and Associated Physician Practices is amultiple site organization consisting of ambulatory clinics and hospital sitesin [place], [place], [place] and [place]. This disclosure is being madepursuant to the Care Everywhere program and may not contain all information available regarding this patient. Last updated 18.[facility] Allergies * Lisinopril(Swelling) Medications * Be aware that medications may not be up to date on this document. Alwaysverify current medications with the patient. * amLODIPine (Norvasc) 10 MG tablet(Started 09/16/2021) 1 tablet * atorvastatin (Lipitor) 20 MG tablet(Started 06/24/2021) 1 tablet * metoprolol tartrate IR (Lopressor) 100 MG tablet 1 tablet with food * omeprazole (PriLOSEC) 20 MG capsule Take 1 (one) capsule by mouth daily before breakfast * metFORMIN (Glucophage) 500 MG tablet Take 1 (one) tablet by mouth 2 times daily with morning and evening meal * fesoterodine CR 24hr (Toviaz) 4 MG tablet(Started 03/09/2022) Take 1 (one) tablet by mouth once daily 1 refill by 03/09/2023 Active Problems Problem Noted Date Diagnosed Date Seasonal allergic rhinitis 02/03/2022 Vitamin D deficiency 10/19/2021 Low back pain 06/24/2021 Prediabetes 06/24/2021 Chronic anemia 07/10/2019 Hyperglycemia 01/31/2017 Obesity 08/03/2016 Memory loss 02/17/2016 Headache disorder 01/12/2016 Numbness of face 01/12/2016 Weakness 01/12/2016 Essential hypertension 11/18/2015 Muscle spasms of neck 11/18/2015 Neck pain 11/18/2015 Hematuria 09/17/2015 Mixed anxiety depressive disorder 07/20/2015 Social History Tobacco Use Types Packs/Day Years Used Date Smoking Tobacco: Never Tobacco Cessation:Counseling Given: Not Answered Alcohol Use Standard Drinks/Week Comments Not Currently 0 (1 standard drink = 0.6 oz pur e alcohol) Sex and Gender Information Value Date Recorded Sex Assigned at Not on file Gender Identity Not on file Sexual Orientation Not on file Last Filed Vital Signs Vital Sign Reading Time Taken Comments Blood Pressure 128/76 03/09/2022 10: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 DESIGN INSTRUCTOR Pulse 82 01/08/2016 7:54 AM CDT Temperature 36.6 C (97.8 F) 03/09/2022 10:42 AM GAME DESIGN INSTRUCTOR Respiratory Rate 16 01/08/2016 7:54 AM CDT Oxygen Saturation 100% 01/08/2016 7:54 AM CDT Inhaled Oxygen Concentration - - Weight 85.1 kg (187 lb 9.6 oz) 03/09/2022 10:42 AM GAME DESIGN INSTRUCTOR Height 157.5 cm (5' 2 ) 03/09/2022 10:42 AM GAME DESIGN INSTRUCTOR Body Mass Index 34.31 03/09/2022 10:42 AM GAME DESIGN INSTRUCTOR Procedures * URINALYSIS AUTO - POINT OF CARE (AMB) [facility](Performed 03/09/2022) Performed for Frequency of micturition, Nocturia * CULTURE URINE(Performed 03/09/2022) Performed for Frequency of micturition, Nocturia * CARDIAC RHYTHM STRIP ORDER(Performed 01/12/2016) * CARDIAC EKG ORDER(Performed 01/09/2016) * ECHOCARDIOGRAM 2D WITH DOPPLER(Performed 01/08/2016) Performed for Altered mental status * GLUCOSE - POINT OF CARE(Performed 01/08/2016) * BASIC METABOLIC PANEL (CALCIUM TOTAL)(Performed 01/08/2016) Performed for Hypokalemia * GLUCOSE - POINT OF CARE(Performed 01/07/2016) * HCG URINE QUALITATIVE(Performed 01/07/2016) * URINE DRUG SCREEN IMMUNOASSAY(Performed 01/07/2016) * URINALYSIS REFLEX MICROSCOPIC REFLEX CULTURE(Performed 01/07/2016) * CT ANGIO BRAIN NECK STROKE(Performed 01/07/2016) Performed for Numbness * CT CEREBRAL PERFUSION ANALYSIS(Performed 01/07/2016) Performed for Numbness * CREATININE BLOOD - POINT OF CARE (IP)(Performed 01/07/2016) * PT WHOLE BLOOD - POINT OF CARE(Performed 01/07/2016) * PROLACTIN(Performed 01/07/2016) * BASIC METABOLIC PANEL (CALCIUM TOTAL)(Performed 01/07/2016) * CBC W AUTO DIFFERENTIAL(Performed 01/07/2016) * NT-PRO BNP(Performed 01/07/2016) * CT HEAD WO CONTRAST(Performed 01/07/2016) Performed for Numbness * TYPE + SCREEN PANEL(Performed 01/07/2016) * PT PTT PANEL(Performed 01/07/2016) * MAGNESIUM BLOOD(Performed 01/07/2016) * GLUCOSE - POINT OF CARE(Performed 01/07/2016) * EKG 12-LEAD(Performed 01/07/2016) Performed for Numbness * XR LUMBAR SPINE 2 OR 3VW(Performed 07/17/2014) Performed for Back pain * LUNG MATURITY(Performed 10/05/2009) Results * URINALYSIS AUTO - POINT OF CARE (AMB) [facility] (03/09/2022) Pathologist [facility] Glucose UA neg Bilirubin UA POCT neg Ketones UA POCT neg Specific [place] UA 1.020 Blood Urine POCT neg pH UA 6.0 Protein UA neg Urobilinogen UA 0.2 Nitrite UA neg WBC UA neg Urine URINE / Unknown 03/09/2022 Bertram Graves MD LAB - POINT OF CARE ORDERABLES * CULTURE URINE (03/09/2022) Pathologist [facility] Culture [facility] Comment: CULTURE, URINE, ROUTINE Micro Number: [id number] Test Status: Final Specimen Source: Urine clean Specimen Quality: Adequate Result: No Growth Test Performed at: [address] [id number] JAMES QUEEN MD Urine URINE SPECIMEN OBTAINED BY CLEAN CATCH PROCEDURE / Unknown 03/09/2022 03/10/2022 1:50 AM GAME DESIGN INSTRUCTOR Bertram Graves MD LAB - MICROBIOLOGY O RDERABLES [address] [address] * CARDIAC RHYTHM STRIP ORDER (01/12/2016 10:26 PM CDT) Narrative 01/12/2016 10:26 PM CDT Ordered by an unspecified provider. Scanned Document CARDIAC SERVICES ORD ERABLES * CARDIAC EKG ORDER (01/09/2016 9:42 PM CDT) Narrative 01/09/2016 9:42 PM CDT Ordered by an unspecified provider. Scanned Document CARDIAC SERVICES ORD ERABLES * ECHOCARDIOGRAM 2D WITH DOPPLER (01/08/2016 9:37 AM CDT) 01/08/2016 9:37 AM CDT Narrative [facility] - 01/08/2016 1:57 PM CDT [facility] [id number] [place] [id number] Transthoracic Echocardiogram 2D, M-mode, Doppler, and Color Doppler Patient: JOHANNA PALMER MR number: [id number] Height: 62 in Weight: 184 lb BSA: 1.85 m Study date: 08-Jan-2016 : 1975 Age: 40 years Gender: Female Race: Black Diagnoses: R41.82 - Altered mental status, unspecified Reading Physician: Bob Marie MD Referring Physician: Michaela Winters M.D DIRECTOR OF HOTEL: Kamar Salinas. [facility] Cardiology Group: [facility] Student: Rhys Rowe Summary: - Clinical question: - Altered mental status - History: - Numbness - Procedure information: - Room 753 at 9:37 - Left ventricle: - Systolic function was normal. Ejection fraction was estimated in the range of 55 % to 65 %. - There were no regional wall motion abnormalities. - Wall thickness was normal. - Mitral valve: - There was mild regurgitation. - Atrial septum: - No shunt present - Pulmonary arteries: - Systolic pressure was mildly increased. Estimated peak pressure was 40 mmHg. - Tricuspid valve: - There was mild regurgitation. Indications: Altered mental status History: Prior history: Numbness Risk factors: hypertension. Procedure: The study was performed in the [facility]. This was a routine study. Room 753 at 9:37 The transthoracic approach was used. The study included complete 2D imaging, M-mode, complete spectral Doppler, and color Doppler. Systolic blood pressure was 121 mmHg. Diastolic blood pressure was 74 mmHg. Intravenous contrast (agitated saline) was administered. Left ventricle: Size was normal. Systolic function was normal. Ejection fraction was estimated in the range of 55 % to 65 %. There were no regional wall motion abnormalities. Wall thickness was normal. Aortic valve: The valve was trileaflet. Leaflets exhibited normal thickness and normal cuspal separation. Doppler: There was no stenosis. There was no regurgitation. Aorta: The root exhibited normal size. Mitral valve: Valve structure was normal. There was normal leaflet separation. Doppler: The transmitral velocity was within the normal range. There was no evidence for stenosis. There was mild regurgitation. Left atrium: Size was normal. Atrial septum: No shunt present Right ventricle: The size was normal. Systolic function was normal. Wall thickness was normal. Pulmonic valve: Leaflets exhibited normal thickness, no calcification, and normal cuspal separation. Doppler: There was no regurgitation. Pulmonary artery: The size was normal. Doppler: Systolic pressure was mildly increased. Estimated peak pressure was 40 mmHg. Tricuspid valve: The valve structure was normal. There was normal leaflet separation. Doppler: The transtricuspid velocity was within the normal range. There was no evidence for tricuspid stenosis. There was mild regurgitation. Right atrium: Size was normal. Pericardium: The pericardium was normal in appearance. System measurement tables 2D IVSd: 1 cm LVIDd: 4.2 cm LVIDs: 2.8 cm LVPWd: 0.9 cm CW PV Vmax: 1 m/s AV Vmax: 1.2 m/s AV maxP.1 mmHg PV maxP mmHg RAP: 10 mmHg TR Vmax: 2.8 m/s TR maxP.6 mmHg MM LA Diam: 2.9 cm AV Cusp: 1.8 cm Ao Diam: 3 cm PW LVOT Vmax: 0.8 m/s Lateral E/e': 5.3 Septal E/e': 5.1 Lateral e': 0.1 m/s MV A Marquez: 0.6 m/s MV Dec [place]: 3.9 m/s2 MV E Marquez: 0.8 m/s MV E/A Ratio: 1.3 RVSP: 41.6 mmHg Septal e': 0.1 m/s Prepared and signed by Bob Marie MD Signed 08-Jan-2016 13:56:26 Procedure Note Bob Marie MD - 01/08/[address] [address] Transthoracic Echocardiogram 2D, M-mode, Doppler, and Color Doppler Patient: JOHANNA PALMER MR number: [id number] Height: 62 in Weight: 184 lb BSA: 1.85 m Study date: 08-Jan-2016 : 1975 Age: 40 years Gender: Female Race: Black Diagnoses: R41.82 - Altered mental status, unspecified Reading Physician: Bob Marie MD Referring Physician: Michaela Winters M.D DIRECTOR OF HOTEL: Kamar Salinas. [facility] Cardiology Group: [facility] Student: Rhys Rowe Summary: - Clinical question: - Altered mental status - History: - Numbness - Procedure information: - Room 753 at 9:37 - Left ventricle: - Systolic function was normal. Ejection fraction was estimated in the range of 55 % to 65 %. - There were no regional wall motion abnormalities. - Wall thickness was normal. - Mitral valve: - There was mild regurgitation. - Atrial septum: - No shunt present - Pulmonary arteries: - Systolic pressure was mildly increased. Estimated peak pressure was 40 mmHg. - Tricuspid valve: - There was mild regurgitation. Indications: Altered mental status History: Prior history: Numbness Risk factors: hypertension. Procedure: The study was performed in the [facility]. This was a routine study. Room 753 at 9:37 The transthoracic approach was used. The study included complete 2D imaging, M-mode, complete spectral Doppler, and color Doppler. Systolic blood pressure was 121 mmHg. Diastolic blood pressure was 74 mmHg. Intravenous contrast (agitated saline) was administered. Left ventricle: Size was normal. Systolic function was normal. Ejection fraction was estimated in the range of 55 % to 65 %. There were no regional wall motion abnormalities. Wall thickness was normal. Aortic valve: The valve was trileaflet. Leaflets exhibited normal thickness and normal cuspal separation. Doppler: There was no stenosis. There was no regurgitation. Aorta: The root exhibited normal size. Mitral valve: Valve structure was normal. There was normal leaflet separation. Doppler: The transmitral velocity was within the normal range. There was no evidence for stenosis. There was mild regurgitation. Left atrium: Size was normal. Atrial septum: No shunt present Right ventricle: The size was normal. Systolic function was normal. Wall thickness was normal. Pulmonic valve: Leaflets exhibited normal thickness, no calcification, and normal cuspal separation. Doppler: There was no regurgitation. Pulmonary artery: The size was normal. Doppler: Systolic pressure was mildly increased. Estimated peak pressure was 40 mmHg. Tricuspid valve: The valve structure was normal. There was normal leaflet separation. Doppler: The transtricuspid velocity was within the normal range. There was no evidence for tricuspid stenosis. There was mild regurgitation. Right atrium: Size was normal. Pericardium: The pericardium was normal in appearance. System measurement tables 2D IVSd: 1 cm LVIDd: 4.2 cm LVIDs: 2.8 cm LVPWd: 0.9 cm CW PV Vmax: 1 m/s AV Vmax: 1.2 m/s AV maxP.1 mmHg PV maxP mmHg RAP: 10 mmHg TR Vmax: 2.8 m/s TR maxP.6 mmHg MM LA Diam: 2.9 cm AV Cusp: 1.8 cm Ao Diam: 3 cm PW LVOT Vmax: 0.8 m/s Lateral E/e': 5.3 Septal E/e': 5.1 Lateral e': 0.1 m/s MV A Marquez: 0.6 m/s MV Dec [place]: 3.9 m/s2 MV E Marquez: 0.8 m/s MV E/A Ratio: 1.3 RVSP: 41.6 mmHg Septal e': 0.1 m/s Prepared and signed by Bob Marie MD Signed 08-Jan-2016 13:56:26 Michaela Winters MD ECHO ORDERABLES [facility] * (ABNORMAL) GLUCOSE - POINT OF CARE (01/08/2016 7:28 AM CDT) Only the most recent of3 resultswithin the time period is included. Glucose WB/POC 137(H) 70 - 106 mg/dL 01/08/2016 8:13 AM CDT [facility] Blood BLOOD SPECIMEN / Unknown 01/08/2016 7:28 AM CDT 01/08/2016 8:13 AM CDT Nadira Muhammad MD LAB - POINT OF CARE ORDERABLES [facility] [address] [place] [id number] * BASIC METABOLIC PANEL (CALCIUM TOTAL) (01/08/2016 4:02 AM CDT) Only the most recent of2 resultswithin the time period is included. Glucose 95 74 - 106 mg/dL 01/08/2016 5:06 AM CDT [facility] Sodium 139 136 - 145 mmol/L 01/08/2016 5:06 AM CDT [facility] Potassium 3.8 3.5 - 5.1 mmol/L 01/08/2016 5:06 AM CDT [facility] Chloride 104 98 - 107 mmol/L 01/08/2016 5:06 AM CDT [facility] CO2 28 22 - 31 mmol/L 01/08/2016 5:06 AM CDT [facility] Calcium 8.9 8.5 - 10.1 mg/dL 01/08/2016 5:06 AM T [facility] Anion Gap 7 5 - 20 mmol/L 01/08/2016 5:06 AM CDT [facility] BUN 12 7 - 21 mg/dL 01/08/2016 5:06 AM CDT [facility] Creatinine 0.95 0.50 - 1.30 mg/dL 01/08/2016 5:06 AM T [facility] eGFR by MDRD >60 >60 mL/min/1.7 3m2 01/08/2016 5:06 AM CDT [facility] eGFR by MDRD >60 >60 mL/min/1.7 3m2 01/08/2016 5:06 AM CDT [facility] Blood BLOOD SPECIMEN / Unknown 01/08/2016 4:02 AM CDT 01/08/2016 4:35 AM CDT Michaela Winters MD LAB - CHEMISTRY ORDERABLES [facility] [address] [place] [address] * (ABNORMAL) URINALYSIS ROUTINE W/REFLEX TO CULTURE (01/07/2016 1:32 PM CDT) Color UA Yellow Straw, Yellow, Dark Yellow 01/07/2016 1:44 PM CDT [facility] Clarity UA Clear 01/07/2016 1:44 PM CDT [facility] Specific [place] UA >1.030(H) 1.005 - 1.030 01/07/2016 1:44 PM CDT [facility] pH UA 5.5 5.0 - 8.0 pH 01/07/2016 1:44 PM CDT [facility] Protein UA Negative Negative 01/07/2016 1:44 PM CDT [facility] Blood UA Negative Negative 01/07/2016 1:44 PM CDT [facility] Leukocyte UA Negative Negative 01/07/2016 1:44 PM CDT [facility] Nitrite UA Negative Negative 01/07/2016 1:44 PM CDT [facility] Glucose UA Negative Negative 01/07/2016 1:44 PM CDT [facility] Ketone UA Negative Negative 01/07/2016 1:44 PM CDT [facility] Bilirubin UA Negative Negative 01/07/2016 1:44 PM CDT [facility] Urobilinogen UA 0.2 0.1 - 1.0 EU/dL 01/07/2016 1:44 PM CDT [facility] Reflex Status Culture not indicated 01/07/2016 1:44 PM CDT [facility] Urine URINE SPECIMEN OBTAINED BY CLEAN CATCH PROCEDURE / Unknown 01/07/2016 1:32 PM CDT 01/07/2016 1:39 PM CDT Michaela Winters MD LAB - URINALYSIS ORDERABLES Performing Organization Address City/[facility]/ZIP Co de Phone Number [facility] [address] [place] [address] * HCG URINE QUALITATIVE (01/07/2016 1:32 PM CDT) [facility] hCG Qualitative Urine Negative Negative 01/07/2016 3:05 PM CDT [facility] Urine URINE / Unknown 01/07/2016 1:32 PM CDT 01/07/2016 2:55 PM CDT Michaela Winters MD LAB - URINALYSIS ORDERABLES Performing Organization Address [facility] Phone [facility] [id number] [place] [id number] * DRUG SCREEN TOX URINE PANEL (01/07/2016 1:32 PM CDT) [facility] Amphetamines Screen Urine Not Detected Not Detected 01/07/2016 1:51 PM CDT [facility] Barbiturates Screen Urine Not Detected Not Detected 01/07/2016 1:51 PM CDT [facility] Benzodiazepines Screen Urine Not Detected Not Detected 01/07/2016 1:51 PM CDT [facility] Cannabinoids Screen Urine Not Detected Not Detected 01/07/2016 1:51 PM CDT [facility] Cocaine Screen Urine Not Detected Not Detected 01/07/2016 1:51 PM CDT [facility] Methadone Screen Urine Not Detected Not Detected 01/07/2016 1:51 PM CDT [facility] Opiate Screen Urine Not Detected Not Detected 01/07/2016 1:51 PM CDT [facility] Phencyclidine Screen Urine Not Detected Not Detected 01/07/2016 1:51 PM CDT [facility] Urine URINE / Unknown 01/07/2016 1 :32 PM CDT 01/07/2016 1:39 PM CDT Narrative [facility] - 01/07/2016 1:51 PM CDT This drug screen is designed for MEDICAL purposes only. It is not to be used for legal purposes, including but not limited to worker's comp, police investigations, occupational issues, child custody, etc. Any positive result is only presumptive and must be confirmed with a separate confirmatory test ordered by the physician. Drug Screening Test Cutoff Values: AMPHETAMINES 1000 ng/mL BARBITURATES 200 ng/mL BENZODIAZEPINES 200 ng/mL CANNABINOIDS(THC) 50 ng/mL COCAINE 300 ng/mL METHADONE 300 ng/mL OPIATES 300 ng/mL PHENCYCLIDINE(PCP)25 ng/mL Michaela Winters MD LAB - URINE CHEM ISTRY ORDERABLES [facility] [address] [place] [address] * CT ANGIO HEAD NECK STROKE (01/07/2016 12:14 PM CDT) Anatomical Region Laterality Modality Head Computed Tomogra phy 01/07/2016 12:3 2 PM CDT Impressions 01/07/2016 12:[address] angiogram of the head and neck. Narrative 01/07/2016 12:[address] angiogram of the neck with IV contrast, CT angiogram of the head with IV contrast, CT MIP reconstructions, CT 3-D reconstructions INDICATION: Nausea, headache, numbness of the left face, CVA TECHNIQUE: Helical CT images of the head and neck are obtained following 80 mL Omnipaque 350. From the original axial data axial sagittal and coronal MIP and 3-D volume rendered reconstructed images performed at a separate workstation. FINDINGS: CT angiogram of the neck: Common carotid artery are patent. There is no significant plaquing in either bulb. The internal carotid arteries are patent. No focal stenoses are noted when utilizing the NASCET criteria. Vertebral arteries are patent and codominant. Reconstructed images demonstrate a normal course and caliber to the inaja of [place]. CT angiogram of the head: Basilar artery is patent. Posterior cerebral arteries are patent. Proximal middle and anterior cerebral arteries are patent. No focal stenoses are noted. Major dural venous sinuses are patent. Reconstructed images demonstrate a normal course and caliber to the inaja of [place]. No aneurysmal dilatation is identified. Procedure Note Anabela Talbert MD - 01/07/2016 CT angiogram of the neck with IV contrast, CT angiogram of the head with IV contrast, CT MIP reconstructions, CT 3-D reconstructions INDICATION: Nausea, headache, numbness of the left face, CVA TECHNIQUE: Helical CT images of the head and neck are obtained following 80 mL Omnipaque 350. From the original axial data axial sagittal and coronal MIP and 3-D volume rendered reconstructed images performed at a separate workstation. FINDINGS: CT angiogram of the neck: Common carotid artery are patent. There is no significant plaquing in either bulb. The internal carotid arteries are patent. No focal stenoses are noted when utilizing the NASCET criteria. Vertebral arteries are patent and codominant. Reconstructed images demonstrate a normal course and caliber to the inaja of [place]. CT angiogram of the head: Basilar artery is patent. Posterior cerebral arteries are patent. Proximal middle and anterior cerebral arteries are patent. No focal stenoses are noted. Major dural venous sinuses are patent. Reconstructed images demonstrate a normal course and caliber to the inaja of [place]. No aneurysmal dilatation is identified. IMPRESSION Unremarkable CT angiogram of the head and neck. Néstor Velasquez MD CT ORDERABLES * CT CEREB PERFUS BOOKER W/C AND POSTP (01/07/2016 12:12 PM CDT) Anatomical Region Laterality Modality Head Computed Tomogra phy 01/07/2016 12:4 7 PM CDT Narrative 01/07/2016 12:51 PM CDT Examination: CT cerebral perfusion. Indication for examination: Acute cerebral infarction. Left-sided numbness. An emergency contrast-enhanced CT cerebral perfusion examination is performed with dynamic contrast injection with housing management representative axial images of the brain. 150 cc Omnipaque 350 contrast were used. Computer processing was performed with evaluation of flow dynamics within the brain parenchyma. Comparison is made with prior imaging studies. No regional or cortical areas of diminished blood volume or blood flow are identified to suggest acute ischemia or infarction. No abnormal regional transit time delay is identified. CONCLUSION: Unremarkable examination as described. Procedure Note Jerrell Reid MD - 01/07/2016 Examination: CT cerebral perfusion. Indication for examination: Acute cerebral infarction. Left-sided numbness. An emergency contrast-enhanced CT cerebral perfusion examination is performed with dynamic contrast injection with housing management representative axial images of the brain. 150 cc Omnipaque 350 contrast were used. Computer processing was performed with evaluation of flow dynamics within the brain parenchyma. Comparison is made with prior imaging studies. No regional or cortical areas of diminished blood volume or blood flow are identified to suggest acute ischemia or infarction. No abnormal regional transit time delay is identified. CONCLUSION: Unremarkable examination as described. Néstor Velasquez MD CT ORDERABLES * CREATININE BLOOD - POINT OF CARE (IP) (01/07/2016 12:00 PM CDT) Creatinine POCT 0.79 0.7 - 1.2 mg/dL [facility] QC Verified Yes Yes [facility] POC T TESTING Blood specimen (specimen) BLOOD SPECIMEN / Unknown 01/07/2016 12:00 PM CDT Michaela Winters MD LAB - POINT OF ARE ORDERABLES Performing Organization Address [facility] Co de Phone Number [facility] POCT TESTING [address] [place] [address] * PT WHOLE BLOOD - POINT OF CARE (01/07/2016 11:56 AM CDT) Pathologist [facility] QC Verified Yes Yes [facility] POC T TESTING INR POCT 0.9 - 1.2 [facility] POCT TESTING INR POCT 0.9 - 1.2 [facility] POCT TESTING INR POCT 0.9 - 1.2 [facility] POCT TESTING INR POCT 1.0 0.9 - 1.2 [facility] POCT TESTING INR POCT 0.9 - 1.2 [facility] POCT TESTING Blood specimen (specimen) BLOOD SPECIMEN / Unknown 01/07/2016 11:56 AM CDT Michaela Winters MD LAB - POINT OF ARE ORDERABLES Performing Organization Address [facility] Co de Phone Number [facility] [address] [place] [address] * NT-PRO BNP (01/07/2016 11:54 AM CDT) NT-proBNP 22.0 <300.0 pg/mL 01/07/2016 12:24 PM CDT [facility] Blood BLOOD SPECIMEN / Unknown 01/07/2016 11:54 AM CDT 01/07/2016 11:54 AM CDT Narrative [facility] - 01/07/2016 12:24 PM CDT NT-proBNP Patient Age Acute HF Unlikely Acute HF Likely <50 years <300 pg/mL >450 pg/mL 50-75 years <300 pg/mL >900 pg/mL >75 years <300 pg/mL >1800 pg/mL Reference: SONNY Soriano et al. ICON Study. Heart Journal (2006) 27, 330- 337 Both BNP and NT-proBNP derive from the precursor molecule called proBNP which is secreted from the ventricles in response to ventricle volume expansion and/or pressure overload. The secreted proBNP is subsequently cleaved by enzymes to form BNP, the active hormone and NT-proBNP an inactive metabolite. NT-proBNP has a longer half-life of 1.5-2.0 hours verses BNP with a half-life of 20 min for BNP. Both are useful biomarkers of ventricular distension due to increased intracardiac pressure. Both BNP and NT-proBNP increase with age and renal insufficiency. Increased concentrations of NT-proBNP have also been observed in the setting of acute myocardial infarction, right ventricular failure, valvular heart disease, and atrial fibrillation. Michaela Winters MD LAB - CHEMISTRY ORDERABLES [facility] [address] [place] [address] * PROLACTIN (01/07/2016 11:54 AM CDT) Prolactin 9.60 ng/mL 01/07/2016 3:19 PM CDT [facility] Blood BLOOD SPECIMEN / Unknown 01/07/2016 11:54 AM CDT 01/07/2016 2:54 PM CDT Narrative [facility] - 01/07/2016 3:19 PM CDT Prolactin Reference Interval: Female Non: 2.80 - 29.20 ng/mL Female : 9.70 - 208.50 ng/mL Female Postmenopausal: 1.80 - 20.39 ng/mL Male: 2.10 - 17.70 ng/mL Michaela Winters MD LAB - CHEMISTRY ORDERABLES [facility] [address] [place] [address] * (ABNORMAL) CBC W AUTO DIFFERENTIAL (01/07/2016 11:54 AM CDT) WBC 8.1 4.4 - 10.7 x10E9/L 01/07/2016 12:05 PM CDT [facility] WBC Corrected x10E9/L 01/07/2016 12:05 PM CDT [facility] RBC 3.90 3.80 - 5.20 x10E12/L 01/07/2016 12:05 PM CDT [facility] Hemoglobin 12.0 12.0 - 15.6 gm/dL 01/07/2016 12:05 PM CDT [facility] Hematocrit 35.1(L) 35.9 - 45.5 % 01/07/2016 12:05 PM CDT [facility] MCV 90.0 80.7 - 98.3 fl 01/07/2016 12:05 PM CDT [facility] MCH 30.8 26.7 - 34.0 pg 01/07/2016 12:05 PM CDT [facility] MCHC 34.2 30.8 - 35.9 gm/dL 01/07/2016 12:05 PM CDT [facility] Platelet Count 369 153 - 416 x10E9/L 01/07/2016 12:05 PM CDT [facility] RDW-CV 12.2 12.1 - 14.9 % 01/07/2016 12:05 PM CDT [facility] MPV 10.0 9.4 - 12.9 fl 01/07/2016 12:05 PM CDT [facility] Neutrophils % 38.2(L) 44.0 - 73.0 % 01/07/2016 12:05 PM CDT [facility] Lymphocytes % 50.7(H) 20.0 - 43.0 % 01/07/2016 12:05 PM CDT [facility] Monocytes % 6.9 5.0 - 13.0 % 01/07/2016 12:05 PM CDT [facility] Eosinophils % 3.5 0.0 - 6.0 % 01/07/2016 12:05 PM CDT [facility] Basophils % 0.5 0.0 - 2.0 % 01/07/2016 12:05 PM CDT [facility] Immature Granulocytes 0.2 0 - 1 % 01/07/2016 12:05 PM CDT [facility] Neutrophil Absolute 3.07 2.01 - 7.14 x10E9/L 01/07/2016 12:05 PM CDT [facility] Lymphocytes Absolute 4.09(H) 1.07 - 3.94 x10E9/L 01/07/2016 12:05 PM CDT [facility] Monocytes Absolute 0.56 0.26 - 1.07 x10E9/L 01/07/2016 12:05 PM CDT [facility] Eosinophils Absolute 0.28 0 - 0.47 x10E9/L 01/07/2016 12:05 PM CDT [facility] Basophils Absolute 0.04 0 - 0.08 x10E9/L 01/07/2016 12:05 PM CDT [facility] Immature Granulocytes Absolute 0.02 0.00 - 0.06 x10E9/L 01/07/2016 12:05 PM CDT [facility] nRBC Auto 0 /100 WBC 01/07/2016 12:05 PM CDT [facility] Blood BLOOD SPECIMEN / Unknown 01/07/2016 11:54 AM CDT 01/07/2016 11:54 AM CDT Michaela Winters MD LAB - HEMATOLOGY ORDERABLES Performing Organization Address City/State/[facility] Co de Phone Number [facility] [address] [place] [address] * CT HEAD NON CONTRAST (01/07/2016 11:53 AM CDT) Anatomical Region Laterality Modality Head Computed Tomogra phy 01/07/2016 11:5 6 AM CDT Impressions 01/07/2016 11:57 AM CDT Unremarkable unenhanced CT scan of the brain. Narrative 01/07/2016 11:[address] Head Noncontrast Indication: Confusion, altered mental status, CVA Technique: CT images of the brain were obtained at 5 mm intervals without contrast. Findings: There is no radiographic evidence of intracranial hemorrhage. There is no mass-effect or midline shift. Ventricles and sulci are of normal size. The visualized paranasal sinuses are clear. Procedure Note Anabela Talbert MD - 01/07/2016 CT Head Noncontrast Indication: Confusion, altered mental status, CVA Technique: CT images of the brain were obtained at 5 mm intervals without contrast. Findings: There is no radiographic evidence of intracranial hemorrhage. There is no mass-effect or midline shift. Ventricles and sulci are of normal size. The visualized paranasal sinuses are clear. IMPRESSION Unremarkable unenhanced CT scan of the brain. Michaela Winters MD CT ORDERABLES * TYPE + SCREEN PANEL (01/07/2016 11:53 AM CDT) ABO O 01/07/2016 12:55 PM CDT [facility] Rh Type Positive 01/07/2016 12:55 PM CDT [facility] Antibody Screen Negative 01/07/2016 12:55 PM CDT [facility] Miscellaneous samples (specimen) BLOOD SPECIMEN / Unknown 01/07/2016 11:53 AM CDT 01/07/2016 11:53 AM CDT Michaela Winters MD LAB - BLOOD BANK ORDERABLES [facility] [address] * PT PTT PANEL (01/07/2016 11:53 AM CDT) PT 10.2 9.5 - 11.6 sec 01/07/2016 12:16 PM CDT [facility] INR 1.0 0.9 - 1.1 01/07/2016 12:16 PM CDT [facility] PTT 22.9 21.0 - 32.0 sec 01/07/2016 12:16 PM CDT [facility] Blood BLOOD SPECIMEN / Unknown 01/07/2016 11:53 AM CDT 01/07/2016 11:53 AM CDT Narrative [facility] - 01/07/2016 12:16 PM CDT Conventional Warfarin Anticoagulant Therapy: INR Reference Range: 2.0-3.0 Intensive Warfarin Anticoagulant Therapy: INR Reference Range: 2.5-3.5 Heparin Therapeutic Range for PTT: 47.7 - 68.6 seconds. Michaela Winters MD LAB - COAGULATIO N ORDERABLES Performing Organization Address [facility] Co de Phone Number [facility] [address] [place] [address] * MAGNESIUM BLOOD (01/07/2016 11:53 AM CDT) Pathologist [facility] Magnesium 1.9 1.6 - 2.6 mg/dL 01/07/2016 12:17 PM CDT [facility] Blood BLOOD SPECIMEN / Unknown 01/07/2016 11:53 AM CDT 01/07/2016 11:53 AM CDT Michaela Winters MD LAB - CHEMISTRY ORDERABLES Performing Organization Address [facility] de Phone Number [facility] [id number] [place] [id number] * EKG 12-LEAD (01/07/2016 11:17 AM CDT) Ventricular Rate 64 BPM [facility] Atrial Rate 64 BPM [facility] P-R Interval 140 ms [facility] QRS Duration ms 84 ms [facility] Q-T Interval ms 420 ms [facility] QTC Calculation (Bezet) 433 ms [facility] Calculated P [place] 37 degrees [facility] Calculated R [place] 26 degrees [facility] Calculated T [place] -3 degrees [facility] Interpretation EKG Normal sinus rhythm Nonspecific T wave abnormality Abnormal ECG No previous ECGs available Confirmed by MD LORENZO, BOB ([id number]) on 01/08/2016 10:04:51 AM [facility] 01/07/2016 11:1 7 AM CDT 01/08/2016 10:04 AM CDT Michaela Winters MD ECG ORDERABLES Performing Organization Address [facility] Co de Phone Number [facility] * XR LUMBAR SPINE 2 OR 3 VW (07/17/2014 2:12 PM CDT) Anatomical Region Laterality Modality Spine Radiographic Olesya ging 07/17/2014 2:18 PM CDT Impressions 07/17/2014 2:19 PM CDT Unremarkable three-view lumbar spine Narrative 07/17/2014 2:19 PM CDT 3 VIEWS LUMBAR SPINE Indication: Back pain Findings: There is no compression fracture or subluxation. There is no osseous destruction. Significant hypertrophic or erosive degenerative changes are not identified. Procedure Note Chris Howard MD - 07/17/2014 3 VIEWS LUMBAR SPINE Indication: Back pain Findings: There is no compression fracture or subluxation. There is no osseous destruction. Significant hypertrophic or erosive degenerative changes are not identified. IMPRESSION Unremarkable three-view lumbar spine Michael Fofana DO DIAGNOSTIC IMAGING O RDERABLES * LUNG MATURITY (10/05/2009 8:35 AM CDT) FLM 79.25 SEE BELOW mg/g [facility] Comment: See Interpretation for Normals Color Fluid Pale Yellow [facility] Character Amnio Moderately Cloudy [facility] Gestational Age 36w1d [facility] Volume Amnio 13 ml [facility] Interpretation [facility] Comment: FLM Immature ......... <= 39 mg/g Mature ......... >= 55 mg/g Results between 40 and 54 cannot be declared mature or immature and should be evaluated with caution. AMNIOTIC FLUID SPECIMEN / Unknown 10/05/2009 8:35 AM CDT 10/05/2009 10:52 AM CDT Jeff Damon MD LAB - BODY FLUID O RDERABLES [facility] [address] [place] [address] Care Teams Director Of Capital Giving Relationship Specialty Start Date End Date Farhad Fuchs MD PCP - General 01/15/18
--- OUTSIDE RECORDS SUMMARY | 2024-05-23 00:46 | XMS_ITS | Clinical Summary ---
Author Organization [facility] [employer] Address [address] [place] [address] Care Team Providers Care Functional Support Analyst Name Role Phone Farhad Fuchs MD Primary Care Provider [phone] Source Comments [facility],non-owned Affiliates and Associated Physician Practices is amultiple site organization consisting of ambulatory clinics and hospital sitesin [place], [place], [place] and [place]. This disclosure is being madepursuant to the Care Everywhere program and may not contain all information available regarding this patient. Last updated 18.[facility] [employer] Allergies Active Allergy Reactions Criticality Noted Date Comments Lisinopril Swelling 03/09/2022 Medications * Be aware that medications may not be up to date on this document. Alwaysverify current medications with the patient. Medication Sig Dispensed Refills Start Date End Date Status amLODIPine (Norvasc) 10 MG tablet 1 tablet 09/16/2021 Active atorvastatin (Lipitor) 20 MG tablet 1 tablet 06/24/2021 Active metoprolol tartrate IR (Lopressor) 100 MG tablet 1 tablet with food Active omeprazole (PriLOSEC) 20 MG capsule Take 1 (one) capsule by mouth daily before breakfast Active metFORMIN (Glucophage) 500 MG tablet Take 1 (one) tablet by mouth 2 times daily with morning and evening meal Active fesoterodine CR 24hr (Toviaz) 4 MG tablet Take 1 (one) tablet by mouth once daily 30 tablet 1 03/09/2022 Active Active Problems Problem Noted Date Diagnosed Date Seasonal allergic rhinitis 02/03/2022 Vitamin D deficiency 10/19/2021 Low back pain 06/24/2021 Prediabetes 06/24/2021 Chronic anemia 07/10/2019 Hyperglycemia 01/31/2017 Obesity 08/03/2016 Memory loss 02/17/2016 Overview (03/09/2022): Memory loss Headache disorder 01/12/2016 Overview (03/09/2022): Headache New daily persistent headache Numbness of face 01/12/2016 Overview (03/09/2022): Facial numbness Weakness 01/12/2016 Overview (03/09/2022): Unilateral weakness Essential hypertension 11/18/2015 Overview (03/09/2022): Essential hypertension Essential hypertension Muscle spasms of neck 11/18/2015 Overview (03/09/2022): Trapezius muscle spasm Neck pain 11/18/2015 Overview (03/09/2022): Neck pain Hematuria 09/17/2015 Overview (03/09/2022): Hematuria Mixed anxiety depressive disorder 07/20/2015 Overview (03/09/2022): Depression with anxiety Family History Medical History Relation Name Comments CVA Mother Diabetes - Type 2 Mother Hypertension Mother Relation Name Status Comments Mother Social History Tobacco Use Types Packs/Day Years [...] Comments Blood Pressure 128/76 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 Pulse 82 01/08/2016 7:54 AM CDT Temperature 36.6 C (97.8 F) 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 Respiratory Rate 16 01/08/2016 7:54 AM CDT Oxygen Saturation 100% 01/08/2016 7:54 AM CDT Inhaled Oxygen Concentration - - Weight 85.1 kg (187 lb 9.6 oz) 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 Height 157.5 cm (5' 2 ) 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 Body Mass Index 34.31 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 Plan of Treatment Health Maintenance Due Date Last Done Comments COLOGUARD (AGES 45-75) - COLON CA SCREENING 1977 COLON MONITORING 1977 COLONOSCOPY - COLON CA SCREENING 1977 CT COLONOGRAPHY - COLON CA SCREENING 1977 Colorectal Cancer Screening 1977 FIT - COLON CA SCREENING 1977 FLEX SIG - COLON CA SCREENING 1977 MAMMOGRAM 1977 PAP SMEAR 1977 HIV SCREENING 1992 HEPATITIS C SCREENING 12/12/1995 DTAP/TDAP/TD VACCINES (1 - Tdap) 1996 HEPATITIS B VACCINE (1 of 3 - 19+ 3-dose series) 1996 SCREENING FOR DIABETES 03/09/2022 6, 01/08/2016, 01/07/2016, Additional history exists COVID-19 VACCINE ( - 2023- season) 2023 INFLUENZA VACCINE (#1) 2023 DEPRESSION SCREENING 04/17/2024 ZOSTER VACCINE (1 of 2) 12/17/2027 HIB VACCINE Aged Out No longer eligi ble based on patient's age to complete this topic HPV VACCINE Aged Out No longer eligi ble based on patient's age to complete this topic MENINGOCOCCAL (Group B) VACCINE Aged Out No longer eligible based on patient's age to complete this topic MENINGOCOCCAL VACCINE Aged Out No cecily jonathan eligible based on patient's age to complete this topic PNEUMOCOCCAL VACCINE Aged Out No long er eligible based on patient's age to complete this topic Procedures Procedure Name Priority Date/Time Associated Diagnosis Comments BASIC METABOLIC PANEL (CALCIUM TOTAL) AM Draw 01/08/2016 4:02 AM CDT Hypokalemia from Last 3 Months or Most Recently Relevant to Health Maintenance Results * BASIC METABOLIC PANEL (CALCIUM TOTAL) (01/08/2016 4:02 AM CDT) Glucose 95 74 - 106 mg/dL 01/08/2016 5:06 AM CDT [facility] Sodium 139 136 - 145 mmol/L 01/08/2016 5:06 AM CDT [facility] Potassium 3.8 3.5 - 5.1 mmol/L 01/08/2016 5:06 AM CDT [facility] Chloride 104 98 - 107 mmol/L 01/08/2016 5:06 AM CDT [facility] CO2 28 22 - 31 mmol/L 01/08/2016 5:06 AM CDT [facility] Calcium 8.9 8.5 - 10.1 mg/dL 01/08/2016 5:06 AM CDT [facility] Anion Gap 7 5 - 20 mmol/L 01/08/2016 5:06 AM CDT [facility] BUN 12 7 - 21 mg/dL 01/08/2016 5:06 AM CDT [facility] Creatinine 0.95 0.50 - 1.30 mg/dL 01/08/2016 5:06 AM CDT [facility] eGFR by MDRD >60 >60 mL/min/1.7 3m2 01/08/2016 5:06 AM CDT [facility] eGFR by MDRD >60 >60 mL/min/1.7 3m2 01/08/2016 5:06 AM CDT [facility] Blood BLOOD SPECIMEN / Unknown 01/08/2016 4:02 AM CDT 01/08/2016 4:35 AM CDT Michaela Winters MD LAB - CHEMISTRY ORDERABLES [facility] [address] [place] [address] from Last 3 Months or Most Recently Relevant to Health Maintenance Advance Directives * Full Code (Latest Code Status on File) Date Activated Date Inactivated Comments 01/07/2016 7:16 PM 01/08/2016 12:15 PM * Full Code Date Activated Date Inactivated Comments 01/07/2016 3:44 PM 01/07/2016 7:16 PM Care Teams Functional Support Analyst Relationship Specialty Start Date End Date Farhad Fuchs MD PCP - General 01/15/18
--- OUTSIDE RECORDS SUMMARY | 2024-05-23 00:46 | XMS_ITS | Data Portability ---
Author Organization [facility] [place] Address [address] [place] [address] Care Team Providers Care Dry Cure Worker Name Role Phone ALANTOMGABBY Primary Care Provider Assessment No assessment recorded. Plan of Treatment Reminders Order Date Submit Date Provider Last Modified By Organization Details Last Modified Time Details Appointments None recorded. Lab urinalysis, dipstick 2021 022 [address], [address], [place], [address], 16:08:14 urinalysis, dipstick 2023 024 [place] [facility] [address], [place], [address], 4 09:48:09 Referral urogynecolo gist referral - Chronic interstitia l cystitis managementP lenancy contact this patient to schedule an appointment . This patient has an appointment with Dr Graves on Monday03/09/2022 @ 11:00 am.Attached are the patients demographic s, most recent office visit notes and UA results.If you have any questions, please contact me at [phone].Thank you,Tamara, Referral's 2021 ZACHARIAH Graves MD, [address] [facility], [facility] [address], [place], [address], 01:30:21 Procedures None recorded. Surgeries None recorded. Imaging None recorded. Medication Orders Pyridium 200 mg tablet [address] [facility] #[id number], [address] [facility], [place], [place], [id number], 3 18:14:59 Macrobid 100 mg capsule [address] [facility] #05222, [address] [facility], [place], [place], [id number], 3 18:15:14 Diflucan 200 mg tablet 2022 024 [facility] #00972, [address] [place], [place], [id number], 4 10:49:06 Valtrex 1 gram tablet [address] [facility] #27596, [address] [facility], [place], [place], [id number], 4 10:49:06 lidocaine HCl 2 % mucosal jelly 2022 024 [facility] #84630, [address] [place], [place], [id number], 4 10:48:54 Keflex 500 mg capsule [address] [facility] #89575, [address] [place], [place], [id number], 4 10:48:28 Valtrex 500 mg tablet 2022 023 [facility] #91446, [address] [place], [place], [id number], 3 16:48:31 Diflucan 200 mg tablet 2022 023 [address] [facility], [address] [facility], [place], [place], [id number], 4 10:48:24 nystatin-tr iamcinolone 100,000 unit/gram-0 .1 % topical ointment 2022 023 [facility] #44166, [address] [facility], [place], [place], [id number], 3 16:48:29 fluconazole 150 mg tablet 2023 024 [facility] #22023, [address] [facility], [place], [place], [id number], 4 11:03:07 metronidazo le 500 mg tablet 2023 024 [facility] #72472, [address] [facility], [place], [place], [id number], 4 11:03:08 nystatin-tr iamcinolone 100,000 unit/gram-0 .1 % topical ointment 2023 024 [facility] #29059, [address] [facility], [place], [place], [id number], 4 11:03:08 Patient TargetsNo targets recorded. Patient InstructionsNo instructions recorded. Reason for Referral Urogynecologist Referral for Chronic interstitial cystitis Chronic interstitial cystitis management Chronic interstitial cystitis managementPlease contact this patient to schedule an appointment. This patient has an appointment with Dr Graves on Monday03/09/2022 @ 11:00 am.Attached are the patients demographics, most recent office visit notes and UA results.If you have any questions, please contact me at [phone].Thank you,Tamara Referral's Referring Physician: Rhonda Alarcon, WRAPPER LEAF INSPECTOR, Encounter Date: 02/11/2022 Results Created Date Observation Date Name Description Value Unit Range Abnormal Flag Note LastModifiedBy Organization Detail LastModifiedTime 02/12/2002/11/2022 URINA LYSIS , WITH MICRO SCOPI C urinalysis, with microscopic CANCEL LED Reord ered Not Available [facility] [place], [address], 02/12/2022 00:30:11 02/12/2002/11/2022 URINA LYSIS , COMPL ETE (QUES T) color DARK YELLOW yellow Not Available [facility] [place], [address], 02/12/2022 21:37:27 02/12/20 22 02/11/2022 URINA LYSIS , COMPL ETE (QUES T) apperance CLEAR clear Not Available [facility] [place], [address], 02/12/2022 21:37:27 02/12/20 22 02/11/2022 URINA LYSIS , COMPL ETE (QUES T) specific gravity 1.025 1.001- 1.035 Not Available [facility] [place], [address], 02/12/2022 21:37:27 02/12/20 22 02/11/2022 URINA LYSIS , COMPL ETE (QUES T) pH 8.0 5.0-8. 0 Not Available [facility] [place], [address], 02/12/2022 21:37:27 02/12/20 22 02/11/2022 URINA LYSIS , COMPL ETE (QUES T) glucose NEGATI VE negati ve Not Available [facility] [place], [address], 02/12/2022 21:37:27 02/12/20 22 02/11/2022 URINA LYSIS , COMPL ETE (QUES T) bilirubin NEGATI VE negati ve Not Available [facility] [address] [place] [address], [address], 02/12/2022 21:37:27 02/12/20 22 02/11/2022 URINA LYSIS , COMPL ETE (QUES T) ketones TRACE negati ve abnormal Not Available [facility] [address] [place] [address], [address], 02/12/2022 21:37:27 02/12/20 22 02/11/2022 URINA LYSIS , COMPL ETE (QUES T) occult blood NEGATI VE negati ve Not Available [facility] [address] [place] [address], [address], 02/12/2022 21:37:27 02/12/20 22 02/11/2022 URINA LYSIS , COMPL ETE (QUES T) protein TRACE negati ve abnormal Not Available [facility] [address] [place] [address], [address], 02/12/2022 21:37:27 02/12/20 22 02/11/2022 URINA LYSIS , COMPL ETE (QUES T) nitrite NEGATI VE negati ve Not Available [facility] [address] [place] [address], [address], 02/12/2022 21:37:27 02/12/20 22 02/11/2022 URINA LYSIS , COMPL ETE (QUES T) leukocyte esterase NEGATI VE negati ve Not Available [facility] [address] [place] [address], [address], 02/12/2022 21:37:27 02/12/20 22 02/11/2022 URINA LYSIS , COMPL ETE (QUES T) WBC NONE SEEN /hpf < or = 5 Not Available [facility] [address] [place] [address], [address], 02/12/2022 21:37:27 02/12/20 22 02/11/2022 URINA LYSIS , COMPL ETE (QUES T) RBC NONE SEEN /hpf < or = 2 Not Available [facility] [address] [place] [address], [address], 02/12/2022 21:37:27 02/12/20 22 02/11/2022 URINA LYSIS , COMPL ETE (QUES T) squamous epithelial cells 0-5 /hpf < or = 5 Not Available [facility] [address] [place] [address], [address], 02/12/2022 21:37:27 02/12/20 22 02/11/2022 URINA LYSIS , COMPL ETE (QUES T) bacteria NONE SEEN /hpf none seen Not Available [facility] [address] [place] [address], [address], 02/12/2022 21:37:27 02/12/20 22 02/11/2022 URINA LYSIS , COMPL ETE (QUES T) hyaline cast NONE SEEN /lpf none seen Perfo rming Organ izati on Infor matio n: Site ID: CB Name: [facility] Addre ss: [address] [facility] [place] [address] Dire tor: Sera gilmore M.D. Not Available [facility] Disease [address] [place] [address], [address], 02/12/2022 21:37:27 02/12/20 22 02/11/2022 CULTU RE: URINE result report SEE RESULT S BELOW Test: Cultu re: Urine Speci men Sourc e: Urine Voide d Speci men Type: Urine Speci men Date: 02/11 3:57 PM Resul t Date: 02/12 8:35 PM Resul t Statu s: Final resul t Abnor mal: No Resul melissag Lab: [facility] [address] [facility] [address] Tel: CULTU RE ----- ----- ----- --- No growt h in 1 day (dete ction level of 10,00 0 colon ies / ml.) Not Available [facility] [address] [place], [address], 02/12/2022 21:37:27 02/12/2002/11/2022 urina lysis , dipst ick Leukocytes neg Not Available [facility] [address], [place], [address], 02/11/2022 16:07:32 02/12/2002/11/2022 urina lysis , dipst ick Nitrite neg Not Available [place] [address], [place], [address], 02/11/2022 16:07:32 02/12/20 22 02/11/2022 urina lysis , dipst ick Urobilinogen neg Not Available [facility] [address], [place], [address], 02/11/2022 16:07:32 02/12/20 22 02/11/2022 urina lysis , dipst ick Protein neg Not Available [place] [address], [place], [address], 02/11/2022 16:07:32 02/12/20 22 02/11/2022 urina lysis , dipst ick pH 7 Not Available [place] [address], [place], [address], 02/11/2022 16:07:32 02/12/20 22 02/11/2022 urina lysis , dipst ick Specific [place] 1.000 [facility] Available [facility] [address], [place], [address], 02/11/2022 16:07:32 02/12/20 22 02/11/2022 urina lysis , dipst ick Ketone neg Not Available [place] [address], [place], [address], 02/11/2022 16:07:32 02/12/20 22 02/11/2022 urina lysis , dipst ick Bilirubin neg Not Available [facility] [address], [place], [address], 02/11/2022 16:07:32 02/12/20 22 02/11/2022 urina lysis , dipst ick Glucose neg Not Available [place] [address], [place], [address], 02/11/2022 16:07:32 02/12/20 22 02/11/2022 urina lysis , dipst ick Appearance cloudy Not Available [facility] [address], [place], [address], 02/11/2022 16:07:32 02/12/20 22 02/11/2022 urina lysis , dipst ick Color yellow Not Available [address], [place], [address], 02/11/2022 16:07:32 11/24/19 23 11/23/2022 CT/GC AND TRICH OMONA S VAGIN BRANDAN (RRNA ), URINE chlamydia trachomatis, PCR Negati ve negati ve Not Available [facility] (Lab) [address], [place], [address], 11/24/2022 13:09:56 11/24/19 23 11/23/2022 CT/GC AND TRICH OMONA S VAGIN BRANDAN (RRNA ), URINE neisseria gonorrhoeae, PCR Negati ve negati ve Not Available [facility] (Lab) [address] [facility], [place], [address], 11/24/2022 13:09:56 11/24/19 23 11/23/2022 CT/GC AND TRICH OMONA S VAGIN BRANDAN (RRNA ), URINE trichomonas vaginalis ribosomal RNA (rrna) Negati ve negati ve Not Available [facility] (Lab) [address] [facility], [place], [address], 11/24/2022 13:09:56 06/09/19 24 06/09/2023 CT/GC AND TRICH OMONA S VAGIN BRANDAN (RRNA ), SWAB chlamydia trachomatis, PCR Negati ve negati ve Not Available [facility] (Lab) [address] [facility], [place], [address], 06/12/2023 12:12:40 06/09/19 24 06/09/2023 CT/GC AND TRICH OMONA S VAGIN BRANDAN (RRNA ), SWAB neisseria gonorrhoeae, PCR Negati ve negati ve Not Available [facility] (Lab) [address] [facility], [place], [address], 06/12/2023 12:12:40 06/09/19 24 06/09/2023 CT/GC AND TRICH OMONA S VAGIN BRANDAN (RRNA ), SWAB trichomonas vaginalis ribosomal RNA (rrna) Negati ve negati ve Not Available [facility] (Lab) [address] [facility], [place], [address], 06/12/2023 12:12:40 06/09/19 24 06/09/2023 VAGIN ITIS/ VAGIN OSIS, DNA PROBE connor sp. detection, direct probe Negati ve negati ve Not Available [facility] (Lab) [address] [facility], [place], [address], 06/12/2023 12:12:41 06/09/19 24 06/09/2023 VAGIN ITIS/ VAGIN OSIS, DNA PROBE gardnerella vag. detection, direct probe Positi ve negati ve abnormal Not Available [facility] (Lab) [address] [facility], [place], [address], 06/12/2023 12:12:41 06/09/19 24 06/09/2023 VAGIN ITIS/ VAGIN OSIS, DNA PROBE trichomonas vag. detection, direct probe Negati ve negati ve Not Available [facility] (Lab) [address] [facility], [place], [address], 06/12/2023 12:12:41 12/19/19 24 12/19/2023 CULTU RE: URINE result report SEE RESULT S BELOW Test: Cultu re: Urine Speci men Sourc e: Urine - Clean Catch Speci men Type: Urine Speci men Date: 1050 Resul t Date: 0458 Resul t Statu s: Final resul t Abnor mal: No Resul ting Lab: [facility] [address] [facility] [address] Tel: CULTU RE ----- ----- ----- --- No growt h in 1 day (dete ction level of 10,00 0 colon ies / ml.) Not Available [facility] (Lab) [address] [facility], [place], [address], 12/21/2023 06:03:57 12/19/19 24 12/19/2023 urina lysis , dipst ick Leukocytes Trace Not Available [facility] [address], [place], [address], 12/19/2023 09:47:12 12/19/19 24 12/19/2023 urina lysis , dipst ick Nitrite Negati ve Not Available [facility] [address], [place], [address], 12/19/2023 09:47:12 12/19/19 24 12/19/2023 urina lysis , dipst ick Urobilinogen Normal Not Available [facility] [address], [place], [address], 12/19/2023 09:47:12 12/19/19 24 12/19/2023 urina lysis , dipst ick Protein Negati ve Not Available [address] [address], [place], [address], 12/19/2023 09:47:12 12/19/19 24 12/19/2023 urina lysis , dipst ick pH 5 Not Available [address] [address], [place], [address], 12/19/2023 09:47:12 12/19/1912/19/2023 urina lysis , dipst ick Blood ++ Not Available [address] [address], [place], [address], 12/19/2023 09:47:12 12/19/19 24 12/19/2023 urina lysis , dipst ick Specific [place] 1.030 Not Available [facility] [address], [place], [address], 12/19/2023 09:47:12 12/19/19 24 12/19/2023 urina lysis , dipst ick Ketone Negati ve Not Available [address] [address], [place], [address], 12/19/2023 09:47:12 12/19/19 24 12/19/2023 urina lysis , dipst ick Bilirubin Negati ve Not Available [address], [place], [address], 12/19/2023 09:47:12 12/19/19 24 12/19/2023 urina lysis , dipst ick Glucose Normal Not Available [facility] [address], [place], [address], 12/19/2023 09:47:12 12/19/19 24 12/19/2023 urina lysis , dipst ick Color Dark Yellow Not Available [facility] [address], [place], [address], 12/19/2023 09:47:12 Result Notes None recorded. Problems Name Problem SNOMED Code Status Onset Date Resolution Date Notes Provider Name and Address Organization Details Recorded Time Acute vaginiti s [id number] Completed 201601/14/2021 Acute vulvovagi nitis;Rec orded Elsewhere : No Locati on: [facility] So urce: EHR Chron ic: N Practic e ID: [id number] Bill able Time: 01:00:[address] [facility] 14:24:12 Pelvic and perineal pain [id number] Completed 201701/14/2021 Pelvic and perineal pain;Kal rded Elsewhere : No Locati on: [facility] So urce: EHR Chron ic: N Practic e ID: 0001 Bill able Time: 11:30:00 AM Ashley Hunter [facility] 14:24:23 Vaginola bial hernia Completed 201701/14/2021 Other specified noninflam matory disorders of vagina;Re corded Elsewhere : No Locati on: [facility] So urce: EHR Chron ic: N Practic e ID: 0001 Bill able Time: 11:30:00 AM Ashley Hunter [facility] 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 09/30/202 1 14:24:26 Syphilis test finding [id number] Completed 201701/14/2021 Encntr screen for infection s w sexl mode of transmiss ;Recorded Elsewhere : No Locati on: [facility] So urce: EHR Chron ic: N Practic e ID: 0001 Bill able Time: 11:30:[address] [facility] 14:24:[address] Concept Completed 201601/14/2021 Encntr for general adult medical exam w/o abnormal findings; Recorded Elsewhere : No Locati on: [facility] So urce: EHR Chron ic: N Practic e ID: [id number] Bill able Time: 02:30:[address] [facility] 14:24:24 Itching [id number] Completed 201601/14/2021 Pruritus, unspecifi ed;Record ed Elsewhere : No Locati on: [facility] So urce: EHR Chron ic: N Practic e ID: [id number] Bill able Time: 10:30:[address] [facility] 14:24:21 Connor infectio n of genital region Completed 201801/14/2021 Candidal vulvovagi nitis;Rec orded Elsewhere : No Locati on: [facility] So urce: EHR Chron ic: N Practic e ID: [id number] Bill able Time: 04:00:[address] [facility] 14:24:15 Infectio n screenin g Completed 201701/14/2021 Encounter for screening for oth infec/par astc diseases; Recorded Elsewhere : No Locati on: [facility] So urce: EHR Chron ic: N Practic e ID: 0001 Bill able Time: 11:30:[address] [facility] 14:24:20 Hyperten sive disorder [id number] Completed 201501/14/2021 Essential (primary) hypertens ion;Recor ded Elsewhere : No Locati on: [facility] So urce: EHR Chron ic: N Practic e ID: 0001 Bill able Time: 01:45:[address] [facility] 14:24:18 Body mass index 30+ - obesity [id number] Completed 201501/14/2021 Body mass index (BMI) 36.0-36.9 , adult;Rec orded Elsewhere : No Locati on: [facility] So urce: EHR Chron ic: N Practic e ID: 0001 Bill able Time: 01:45:[address] [facility] 14:24:13 Dysuria [id number] Completed 201601/14/2021 Dysuria;P ractice ID: 0001 [facility] 14:24:17 Problem Notes None recorded. Procedures Surgical History Date Name Laterality Status Provider Name and Address Organization Details Recorded Time 01/15/20 21 Date of Last Pap Smear completed [facility] 02/11/2022 16:06:59 07/29/19 20 Date of Last Mammogram completed [facility] 01/14/2021 14:26:32 04/17/19 17 Breast reduction completed [facility] 01/14/2021 14:57:49 04/17/19 14 Partial Hysterectomy completed [facility] 11/09/2020 09:42:54 Imaging Results None recorded. Procedure Notes None recorded. Medical Equipment None Reported. Allergies No known drug allergies Medications Name Sig Start Date Stop Date Status Note LastModified by Organization Details LastModified Time atorvasta tin 40 mg tablet take 1 tablet by oral route every day 01/14 completed Prescrib ed Elsewher e: Yes Loca tion: [facility] M odify By: [email or web address] Encount er DateTime : 04/20/19 04:00:00 PM Not Available Not Available Not Available metformin 500 mg tablet TAKE 1 TABLET BY MOUTH TWICE DAILY active Not Available Not Available No t Available terconazo le 0.4 % vaginal cream insert 1 applicat orful by vaginal route every day for 7 days at bedtime 04/26 completed Prescrib ed Elsewher e: No Locat ion: [facility] odify By: karina bolden DateTime : 04/20/19 04:00:00 PM Not Available Not Available Not Available atorvasta tin 20 mg tablet TAKE 1 TABLET BY MOUTH EVERY DAY active Not Available Not Available No t Available azithromy alba 250 mg tablet TAKE 2 TABLETS BY MOUTH FOR 1 DAY THEN TAKE 1 TABLET BY MOUTH DAILY FOR 4 DAYS active Not Available Not Available No t Available metoprolo l tartrate 100 mg tablet TAKE 1 TABLET BY MOUTH DAILY active Not Available Not Available No t Available fluconazo le 150 mg tablet TAKE 1 TABLET BY MOUTH NOW. REPEAT IN 7 DAYS active Not Available Not Available No t Available benzonata te 200 mg capsule TAKE ONE CAPSULE BY MOUTH THREE TIMES DAILY NEEDED active Not Available Not Available No t Available valacyclo vir 1 gram tablet TAKE 1 TABLET BY MOUTH EVERY DAY WITH MEALS FOR 5 DAYS 06/09 completed Not Available Not Available Not Available hydrocodo ne 5 mg-acetam inophen 325 mg tablet TAKE 1 TABLET BY MOUTH EVERY 6 HOURS NEEDED FOR PAIN 06/09 completed Not Available Not Available Not Available phenazopy ridine 200 mg tablet TAKE 1 TABLET BY MOUTH THREE TIMES DAILY NEEDED 11/23 completed Not Available Not Available Not Available ondansetr on HCl 4 mg tablet 11/23 completed Not Available Not Available Not Available prednison e 20 mg tablet TAKE 2 TABLETS BY MOUTH EVERY DAY FOR 3 DAYS THEN 1 TABLET EVERY DAY FOR 3 DAYS AND A 1/2 TABLET EVERY DAY FOR 3 DAYS active Not Available Not Available No t Available terconazo le 0.8 % vaginal cream INSERT ONE APPLICAT ORFUL VAGINALL Y AT BEDTIME X 3 DAYS 11/23 completed Not Available Not Available Not Available metronida zole 500 mg tablet TAKE 1 TABLET BY MOUTH TWICE DAILY FOR 7 DAYS active Not Available Not Available No t Available lidocaine HCl 2 % mucosal jelly Apply to affected area topicall y for pain relief PRN q4hrs 06/09 completed Not Available Not Available Not Available acetamino phen 300 mg-codein e 30 mg tablet TAKE 1 TABLET BY MOUTH EVERY 6 HOURS NEEDED active Not Available Not Available No t Available amlodipin e 5 mg tablet 02/11 completed Not Available Not Available Not Available tramadol 50 mg tablet TAKE 1 TABLET BY MOUTH EVERY 8 HOURS NEEDED FOR PAIN active Not Available Not Available No t Available ondansetr on 8 mg disintegr ating tablet 07/29 completed Not Available Not Available Not Available nystatin- triamcino lone 100,000 unit/gram -0.1 % topical ointment APPLY TOPICALL Y TO THE AFFECTED AREA TWICE DAILY FOR 5 DAYS active Not Available Not Available No t Available Miconazol e-7 2 % vaginal cream insert 1 applicat orful by vaginal route every day at bedtime 06/03 completed Prescrib ed Elsewher e: No Locat ion: [facility] odify By: nhung bolden DateTime : 09/04/19 01:16:23 PM Not Available Not Available Not Available amoxicill in 875 mg tablet TAKE 1 TABLET BY MOUTH EVERY 12 HOURS FOR 10 DAYS 01/14 completed Not Available Not Available Not Available Metrogel Vaginal 0.75 % (37.5 mg/5 gram) insert 1 applicat orful by vaginal route every day at bedtime for 5 nights 09/07 completed Prescrib ed Elsewher e: No Locat ion: [facility]ek whitaker [facility] M odify By: mike prasad DateTime : 09/04/19 01:16:23 PM Not Available Not Available Not Available famotidin e 20 mg tablet 11/23 completed Not Available Not Available Not Available OneTouch Ultra Test strips USE TO CHECK BLOOD SUGAR THREE TIMES DAILY 11/23 completed Not Available Not Available Not Available amlodipin e 10 mg tablet TAKE 1 TABLET BY MOUTH DAILY active Not Available Not Available No t Available benzonata te 100 mg capsule active Not Available Not Available Not Available hydrocodo ne 7.5 mg-acetam inophen 325 mg tablet 11/23 completed Not Available Not Available Not Available cephalexi n 500 mg capsule TAKE 1 CAPSULE BY MOUTH TWICE DAILY WITH MEALS FOR 7 DAYS 06/09 completed Not Available Not Available Not Available clotrimaz ole-betam ethasone 1 %-0.05 % topical cream APPLY TOPICALL Y TO THE AFFECTED AND SURROUND ING AREAS TWICE DAILY IN THE MORNING AND IN THE EVENING FOR 2 WEEKS 07/29 completed Not Available Not Available Not Available hydrochlo rothiazid e 12.5 mg capsule take 2 capsule by oral route every day 06/09 completed Not Available Not Available Not Available fluoxetin e 10 mg capsule 11/23 completed Not Available Not Available Not Available omeprazol e 20 mg capsule,d elayed release active Not Available Not Available Not Available monteluka st 10 mg tablet 07/29 completed Not Available Not Available Not Available Valtrex 500 mg tablet take 1 tablet by oral route every day suppress prince therapy 2024 active Not Available Not Available Not Avai lable gabapenti n 100 mg capsule active Not Available Not Available Not Available azelastin e 137 mcg (0.1 %) nasal spray USE ONE SPRAY IN EACH NOSTRIL TWICE DAILY 11/23 completed Not Available Not Available Not Available ibuprofen 600 mg tablet TAKE 1 TABLET BY MOUTH THREE TIMES DAILY NEEDED FOR PAIN 06/09 completed Not Available Not Available Not Available methylpre dnisolone 4 mg tablets in a dose pack FOLLOW PACKAGE DIRECTIO NS 02/11 completed Not Available Not Available Not Available albuterol sulfate HFA 90 mcg/actua tion aerosol inhaler INHALE 2 PUFFS BY MOUTH EVERY 6 HOURS NEEDED FOR SHORTNES S OF BREATH OR WHEEZING active Not Available Not Available No t Available ketoconaz ole 2 % topical cream apply by topical route every day to the affected area(s) 04/20 completed Prescrib jame Sinclair e: No Locat ion: [facility] odify By: [email or web address] Encount er DateTime : 02/09/20 17 01:00:00 PM Not Available Not Available Not Available fluticaso ne propionat e 50 mcg/actua tion nasal spray,parker pension 11/23 completed Not Available Not Available Not Available metformin ER 500 mg tablet,ex tended release 24 hr take 2 tablet by oral route every day with the evening meal 02/11 completed Prescrib ed Elsewher e: Yes [facility] odify By: ron prasad DateTime : 10/24/19 18 11:30:00 AM Not Available Not Available Not Available Diflucan 200 mg tablet Take 1 tablet every day by oral route as directed for 1 day. 06/09 completed Not Available Not Available Not Available diazepam 5 mg tablet TAKE 1 TABLET BY MOUTH TWICE DAILY NEEDED FOR MUSCLE SPASM 11/23 completed Not Available Not Available Not Available amoxicill in 875 mg-potass ium clavulana te 125 mg tablet 07/29 completed Not Available Not Available Not Available metoprolo l tartrate 5 mg/5 mL intraveno us solution inject 5 millilit er by intraven ous route every 2 minutes for 3 doses 01/14 completed Prescrib ed Elsewher e: Yes Loca tion: [facility] odify By: elizabeth aburto Encoun ter DateTime : 10/30/19 16 01:45:00 PM Not Available Not Available Not Available neomycin 3.5 mg/g-poly myxin B 10,000 unit/g-de xameth 0.1 % eye oint 06/09 completed Not Available Not Available Not Available cyclobenz aprine 5 mg tablet 01/14 completed Not Available Not Available Not Available Riomet 500 mg/5 mL oral solution take 10 millilit er by oral route 2 times every day with meals 02/08 completed Prescrib ed Elsewher e: Yes Loca tion: [facility] odify By: elizabeth Merrill ter DateTime : 10/30/19 16 01:45:00 PM Not Available Not Available Not Available nitrofura ntoin monohydra te/macroc rystals 100 mg capsule TAKE 1 CAPSULE BY MOUTH EVERY 12 HOURS WITH MEALS FOR 7 DAYS active Not Available Not Available No t Available [facility] 2.65 % nasal spray aerosol INSTILL 2 SPRAYS IN EACH NOSTRIL THREE TIMES DAILY active Not Available Not Available No t Available cholecalc iferol (vitamin D3) 1,250 mcg (50,000 unit) capsule 01/14 completed Not Available Not Available Not Available FeroSul 325 mg (65 mg iron) tablet 07/29 completed Not Available Not Available Not Available lidocaine 2 % mucosal jelly in applicato r APPLY TOPICALL TO THE AFFECTED AREA EVERY 4 HOURS NEEDED FOR PAIN RELIEF 06/09 completed Not Available Not Available Not Available fesoterod ine ER 4 mg tablet,ex tended release 24 hr TAKE 1 TABLET BY MOUTH EVERY DAY 11/23 completed Not Available Not Available Not Available Ozempic 0.25 mg or 0.5 mg (2 mg/1.5 mL) subcutane ous pen injector INJECT 0.25 MG INTO THE SKIN EVERY 7 DAYS 11/23 completed Not Available Not Available Not Available OneTouch Ultra2 Meter USE TO CHECK BLOOD SUGAR THREE TIMES DAILY BEFORE MEALS 11/23 completed Not Available Not Available Not Available OneTouch Delica Plus Lancet 30 gauge USE TO CHECK BLOOD SUGAR THREE TIMES DAILY BEFORE MEALS NEEDED 11/23 completed Not Available Not Available Not Available ID NOW COVID-19 Test Kit TEST DIRECTED TODAY 02/11 completed Not Available Not Available Not Available Vitals Date Recorded Body height Body weight Body mass index (BMI) Systolic blood pressure Diastolic blood pressure Provider Name and Address Organization Details Last Updated DateTime 02/11/2022 158.75 cm 58293.55 g 34.2 kg/m2 122 mm[Hg] 76 mm[Hg] Ashley Hunter [facility] 2 16:06:12 Date Recorded Body height Body mass index (BMI) Body weight Systolic blood pressure Diastolic blood pressure Provider Name and Address Organization Details Last Updated DateTime 11/23/2022 158.75 cm 34.6 kg/m2 81665.74 g 137 mm[Hg] 84 mm[Hg] Nola Mosley [facility] 3 18:13:49 Date Recorded Body height Body mass index (BMI) Body weight Systolic blood pressure Diastolic blood pressure Provider Name and Address Organization Details Last Updated DateTime 12/07/2022 158.75 cm 35.3 kg/m2 59582.1 g 128 mm[Hg] 79 mm[Hg] Ashley Lambert [facility] 3 16:30:58 Date Recorded Body height Body mass index (BMI) Body weight Systolic blood pressure Diastolic blood pressure Provider Name and Address Organization Details Last Updated DateTime 06/09/2023 158.75 cm 34.2 kg/m2 12567.55 g 136 mm[Hg] 86 mm[Hg] Sommer Koehler [facility] 4 10:48:05 Social History Question Answer Notes LastModified by Organizat ion Details LastModified Time Tobacco Smoking Status Never Smoker [facility] 01/14/2021 14:27:15 What Is Your Level Of Alcohol Consumption? Occasional Information not available 01/14/2021 Are You Blind Or Do You Have Difficulty Seeing? No Information n ot available 01/14/2021 What Is Your Level Of Caffeine Consumption? Occasional Information not available 01/14/2021 In The 14 Days Before Symptom Onset, Have You Had Close Contact With A Laboratory-confirm ed COVID-19 While That Case Was Ill? No Information n ot available 11/23/2022 In The 14 Days Before Symptom Onset, Have You Had Close Contact With A Person Who Is Under Investigation For COVID-19 While That Person Was Ill? No Information not available 11/23/2022 Have You Been To An Area Known To Be High Risk For COVID-19? No Information not available 11/23/2022 Are You Deaf Or Do You Have Serious Difficulty Hearing? No Information not available 01/14/2021 What Type Of Diet Are You Following? REGULAR Information n ot available 01/14/2021 Do You Use Your Seat Belt Or Car Seat Routinely? Yes Information not available 01/14/2021 Do You Have Smoke And Carbon Monoxide Detectors In Your Home? Yes Information not available 01/14/2021 Do You Feel Stressed (tense, Restless, Nervous, Or Anxious, Or Unable To Sleep At Night)? [id number] Information not available 01/14/2021 Do You Use Any Illicit Or Recreational Drugs? No Information not available 01/14/2021 Do You Use Sunscreen Routinely? Yes Information not available 01/14/2021 Sex: Unknown Functional Status Question Answer Note LastModified by Organizat ion Details LastModified Time Do you have difficulty walking or climbing stairs? No Information not available 07/29/2021 Are you able to walk? YESWOREST Information not available 01/14/2021 Are you able to care for yourself? Yes Information not available 07/29/2021 Do you have difficulty dressing or bathing? No Information not available 07/29/2021 What is your exercise level? Moderate Information not available 01/14/2021 Mental Status None recorded. Family History Relationship Description Onset Age of this Age Resolved Age Notes LastModified by Organization Details LastModified Time Mother Diabetes mellitus Not available 2020 14:26:48 Notes:Mother: Diabetes gordo barakat Medical History Condition Response Allergies (Food, seasonal, environmental ) N Other N Breast Cancer N Drug/Latex Allergies/Reactions N Blood Transfusion N Dermatologic Disorders N Lung Disease N Defects or Inherited Disease N Breast Problem N Gestational Diabetes N Hematologic disorders N Anesthesia Complications N History of STI Y Deep Vein Thrombosis N Polycystic ovary syndrome N Anxiety Disorder N Autoimmune disease N Arthritis N Infertility N Polyps N Acid Reflux (GERD) N History of abnormal pap N Cancer N Stroke N Varicosities N Neurologic/Epilepsy N Endometriosis N High Cholesterol N Headaches N Fibromyalgia N Kidney Disease N Heart Problems N Kidney or Bladder Problems N Thyroid Problems N GI Problems N Eating Disorder N Anemia N Art (IVF or FET) N Psychiatric Illness N Ovarian Cancer N Diabetes Y Pulmonary (TB, Asthma) N Hepatitis/Liver Disease N No Past Medical History N Eczema N Urinary Tract Infection N Abuse/Domestic Violence N Asthma N Trauma/Violence N Depression/ depression N Heart Disease N Pre-Eclampsia N Hypertension Y Osteoporosis N Thrombophilias N Gynecological History Statement/Question Response Date of Last Mammogram 07/29/2019 Date of LMP 08/24/2013 Sexually Active? Y STIs/STDs Y HPV Vaccine N Date of Last Pap Smear 01/14/2021 Sexual Problems? N Current Control Method Hysterectom y Obstetrics History GPAL:G 4 P 4 0 0 4 Type Value Full Term 4 Living 4 Total 4 Past Encounters Encounter ID Performer Location Encounter Start Date Encounter Closed Date Diagnosis/Indication Diagnosis SNOMED-CT Code Diagnosis ICD10 Code Diagnosis Note [id number] Rhonda Alarcon [facility] [address] [address] 01/14/2021 14:25:42 01/14/2021 16:34:13 Gynecologic examination 81643599 Z01.419 Suggested Calcium with Vitamin D 1200-1500m g daily. Patient advised to get an annual flu shot in the fall and she could obtain at [facility] or [facility] care clinic. Also to obtain TDap vaccinatio n if you have not had one in the last 10 years. Recommend yearly mammograms . Encouraged monthly self breast exams. Encourage safe sexual practices, to use condoms and limit partners if not already in a monogamous relationsh ip. Engage in daily exercise of low impact aerobic exercise 45-60 minutes 4-5 times weekly. Avoid tobacco and illicit drugs as well as using moderation with alcohol intake less than 1-2 8 oz beverages daily. This lifestyle behavior pattern will lead to less health conditions and longer life span. If BMI greater than 25 weight watchers or dietary consult advised. All questions have been answered. Patient appears to understand informatio n, but if you have any questions please call or respond to this email.Pap/ hpv sent (hx of hysterecto my non-cancer indication s)Wants pap/hpv of vag cuffDeclin e std screenmamm o ordered Pain in pelvis 27357372 R10.2 Likely pain she is feeling is from left hip/pirifo rmis issues that are aggravatin g her lower back and sciatic nerve. However, some pain on left adnexal area so will ensure no issues & update TVUS.She is due to start PT next week for her back/sciat ic nerve pain.Heat/ ice/biofre elder [id number] Yosi Mercer [facility] [address] [address] 07/05/2021 13:45:37 07/05/2021 14:56:52 Vaginitis 23011679 N76.0 this patient is a 45-year-ol d female who presents for vulvar pain. She has irritation and sensitivit y of the tissue over the vulva. Or swelling. There is discharge. The itching extends over the vulva and and towards the anus. She denies any foul-smell ing discharge. The discharge is white. She was examined. There was swelling of the labia minora. There is white discharge present. We agreed to treat with oral Diflucan and a topical combinatio n cream of steroid and antifungal . She will follow-up as needed. [id number] BRIEN Reynolds [facility] [address] [address] 07/29/2021 16:12:28 07/29/2021 17:35:48 Venereal disease screening 152639310 Z11.3 Sexually t ransmitted infectious disease 0022602 A64 Urinary symptoms 0205076 08 R39.9 Acute urin swathi tract infection 195336647 N39.0 Urinary burning, pain, and frequency for the past 2 days.No vaginal itching or discharge. Denies fever, chills, or flu-like symptoms. Has noticed some back pain with working.UA today with only 2+ blood, otherwise normal. She did have a UA on 07/05/21 that had 3+ blood and 2+ leuks when she was in the office for a yeast infection. We discussed waiting for culture before treatment vs starting treatment today based on symptoms, patient desires to start UTI treatment today due to her symptoms.W ill start Macrobid 100mg BID for 7 days. She denies any allergies. Culture sent.She is concerned for yeast infection after antibiotic course, rx for terconazol e cream to be used after antibiotic course.We discussed need to have a UA in 6 weeks to assess if she has blood in her urine, if hematuria persist after UTI treatment will need a urology consult. e should call the office if symptoms persist past treatment. STI testing sent Pelvic pain on and off x 2 years. She has had a hyst. Will order pelvic US to assess ovaries.RT C for US f/u appointmen t. We discussed red flag symptoms (increased abdominal pain, fevers, chills, flu-like symptoms, etc) and when to seek emergency care. Time spent with the patient was 35 minutes. Pain in pelvis 09632470 R10.2 [id number] Edilma Knott [facility] [address],[place] [address] 08/04/2021 18:01:45 08/04/2021 18:41:06 Pain in pelvis 61975932 R10.2 [id number] Dorys Lonnie [facility] [address],[place] [address] 08/09/2021 10:02:37 08/09/2021 10:38:44 Pain in pelvis 10884394 R10.2 Blood in urine 60407040 R31.9 [id number] Rhonda Alarcon , [place] [address],[place] [address] 02/11/2022 15:52:12 02/11/2022 16:50:19 Urinary symptoms 293347555 R39.9 Chronic in terstitial cystitis 312887678 N30.10 Suspect CIC on exam, Hx & subjective complaints .Urine culture sent to r/o infectionH x of endometrio sis with hysterecto my May use Pyridium 200mg PRN no more than TID for the next 30 days.Suleman herrera the following website.Mandi dinero need to consider Pelvic floor therapy as this is sometimes necessary for CIC due to PFD. [email or web address] Time spent in visit is a total of 15 mins with at least 50% of visit consisting of counseling and review of plan of care. [id number] Rhonda Alarcon , [facility] [address],[place] [address] 11/23/2022 18:01:45 11/24/2022 16:40:09 Genital herpes simplex 00340647 A60.9 Suspect HSV outbreakHx of HSV in the past but no outbreaks for a very long time.Rx sentDeclin ed need for std screen Counseled on medication R/B's, Most common side effects, & use. All questions were answered to patient satisfacti on. Labial cyst 341037551 N9 0.7 We agreed to treat labial cyst today.Rx sentCounse led on medication R/B's, Most common side effects, & use. All questions were answered to patient satisfacti on. Return if any further issues or persists. Time spent in visit is a total of 20mins with at least 50% of visit consisting of counseling and review of plan of care. Vaginitis 42038720 N76.0 Suspect yeast on examRx sent Counseled on medication R/B's, Most common side effects, & use. All questions were answered to patient satisfacti on. [id number] [facility] [address],[place] [address] 12/07/2022 16:10:48 12/07/2022 17:41:11 Genital herpes simplex 60102089 A60.9 Wants to do suppressiv e therapy as previously discussed. Rx sent Counseled on medication R/B's, Most common side effects, & use. All questions were answered to patient satisfacti on. Time spent in visit is a total of 20 mins with at least 50% of visit consisting of counseling and review of plan of care. Vaginitis 02654708 N76.0 RF sent for PRN use [id number] Dorys Fleming [facility] [address],[place] [address] 06/09/2023 10:34:56 06/09/2023 11:43:31 Vaginitis 82409443 N76.0 vaginitis/ STI panel sentsuspec t BV/yeastrx sent, r/b/a reviewedvu lvar care guidelines discussedR TC for WWE or sooner if needed Time spent in visit is a total of 22mins with at least 50% of visit consisting of counseling and review of plan of care. Venereal d isease screening 770927035 Z11.3 [id number] Catherine Euceda [facility] [address],[place] [address] 12/19/2023 09:28:17 12/19/2023 09:56:41 Urinary symptoms 431735770 R39.9 Health Concerns Section Related Observation LastModified by Organization Detai ls LastModified Time None Recorded Concern Status LastModified by Organization Details LastModified Time None Recorded Advance Directives Directive None Recorded Payers Encounter Date Sequence Insurance Name Policy Number Policy Rivera Covered Member ID Rivera Member ID Guarantor Name 02/11/2022 3 [employer] [facility] PLAN - DOS PRIOR TO 04.17.2023 [id number] Roshonda L Dominguez [id number] Roshonda L Dmoinguez 02/11/2022 2 [place] [facility] Roshonda Dominguez [id number] Roshonda L Dominguez 11/23/2022 3 [employer] - [employer] [facility] PLAN - DOS PRIOR TO 04.17.2023 [id number] Roshonda L Dominguez [id number] Roshonda L Dominguez 11/23/2022 2 [place] [facility] Roshonda Dominguez [id number] Roshonda L Dominguez 12/07/2022 3 [employer] - [employer] [facility] PLAN - DOS PRIOR TO 04.17.2023 [id number] Roshonda L Dominguez [id number] Roshonda L Dominguez 12/07/2022 2 [place] [facility] Roshonda Dominguez [id number] Roshonda L Dominguez 06/09/2023 2 [place] [facility] Roshonda Dominguez [id number] Roshonda L Dominguez 06/09/2023 1 [facility] [id number] Roshonda L Dominguez [id number] U Roshonda L Dominguez 12/19/2023 1 [facility] [id number] Roshonda L Dominguez [id number] U Roshonda L Dominguez Notes Date Note Type Note Provider Name and Address Organization Details Recorded Time 2 text/html Pelvic Pain/PressureReported bypatient.Location:left Quality:pressure; continuous; dull; stabbing; Always notes a dull ache, throbbing that will randomly get worse. Had to go to ED last week for pain. Severity:moderate; pain level 5-6/10 Duration:present for 2-3 months Onset/Timing:intermittent episodes lasting: (3 days to 1wk); recurring Context:Hx of Endometriosis Alleviating Factors:antibiotics; diet change Aggravating Factors:related to caffeine; cola Associated Symptoms:no back pain; no chills; no constipation; no diarrhea; no dribbling; normal emptying of bladder; no hesitancy; no nausea; no vomiting; no nocturia; no urine odor; no straining; no incontinence; no fever; no urge incontinence;abdominal pain;pain during urination;blood in the urine;feelings of urgency [facility] [address], [place], [address], [facility] 02/11/2022 16:34:57 3 text/html Patient is here today for a painful bumps on vulva/labia, vag d/c, itching for about 3-4 days. Neg pain of abd/pelvis/flankNeg urinary sx'sNeg GI sx'sNeg N/V/F/C/DNeg Vag odor, irritation,SA-Monogamous [facility] [address], [place], [address], [facility] 12/15/2022 18:07:26 3 text/html Here for vulvar check f/u. Rhonda Alarcon [facility] [address], [place], [address], [facility] 12/07/2022 17:39:34 4 text/html 47yopresents for evaluation of vaginal discharge and itchingsymptoms started 1 week ago, used a new soap at a hotel and symptoms occurred afterno new partnershysterectomy for BCneg odorsneg n/v/fneg pelvic painneg flu-like symptoms Dorys Fleming [facility] [address], [place], [address], [facility] 06/09/2023 11:40:43 OBGyn Episode Ob Episode Information Episode Created Date Number of Fetuses Patient Bloodtype Patient rh Status Prepregnancy Weight lbs Domestic Partner Domestic Partner Phone Father Name Adhesive Bandage Machine Operator Status 11/10/19 21 1 CLOSED Fetus Data First Name Last Name Admitted to NICU Weight (g) Sex Living Outcome Pediatric Complications Fetus ID Race Codes Race Delivery Type 2834.95 M Full Term [id number] Vaginal Delivery Daniel Calculation Initial Daniel Date Initial Exam Date Initial Exam Provider Initial Ultrasound Date Last Menstrual Period Date Ultra Sound Weeks Gestation 0 Eighteen To Twenty Week Daniel Update Ultra Sound Date Fundal Height At Umbil Quickening Date Ultra Sound Latest Weeks Gestation Final Daniel Confirmed By Final Daniel Confirmed Date Final Daniel Date Ultra Sound Latest Days Gestation 0 0 Menstrual History Last Menstrual Date Menses Monthly On Bcp Conception Prior Menses Frequency Hcg Plus Date Menarche Onset Age Delivery Information Delivery Date Delivery Type Labor Anesthesia Weeks Gestation Incision Type Labor Labor Length Hrs Delivered By Post Complications Tubal Sterilization Discharge Date Comments 0 36 Discharge Information Feeding Method Contraceptive Method Maternal HG B and HCT Levels Ob Episode Information Episode Created Date Number of Fetuses Patient Bloodtype Patient rh Status Prepregnancy Weight lbs Domestic Partner Domestic Partner Phone Father Name Adhesive Bandage Machine Operator Status 11/10/19 21 1 CLOSED Fetus Data First Name Last Name Admitted to NICU Weight (g) Sex Living Outcome Pediatric Complications Fetus ID Race Codes Race Delivery Type 3175.14 4 F Full Term [id number] Vaginal Delivery Daniel Calculation Initial Daniel Date Initial Exam Date Initial Exam Provider Initial Ultrasound Date Last Menstrual Period Date Ultra Sound Weeks Gestation 0 Eighteen To Twenty Week Daniel Update Ultra Sound Date Fundal Height At Umbil Quickening Date Ultra Sound Latest Weeks Gestation Final Daniel Confirmed By Final Daniel Confirmed Date Final Daniel Date Ultra Sound Latest Days Gestation 0 0 Menstrual History Last Menstrual Date Menses Monthly On Bcp Conception Prior Menses Frequency Hcg Plus Date Menarche Onset Age Delivery Information Delivery Date Delivery Type Labor Anesthesia Weeks Gestation Incision Type Labor Labor Length Hrs Delivered By Post Complications Tubal Sterilization Discharge Date Comments 3 40 Discharge Information Feeding Method Contraceptive Method Maternal HG B and HCT Levels Ob Episode Information Episode Created Date Number of Fetuses Patient Bloodtype Patient rh Status Prepregnancy Weight lbs Domestic Partner Domestic Partner Phone Father Name Adhesive Bandage Machine Operator Status 11/10/19 21 1 CLOSED Fetus Data First Name Last Name Admitted to NICU Weight (g) Sex Living Outcome Pediatric Complications Fetus ID Race Codes Race Delivery Type 2834.95 M Full Term [id number] Vaginal Delivery Daniel Calculation Initial Daniel Date Initial Exam Date Initial Exam Provider Initial Ultrasound Date Last Menstrual Period Date Ultra Sound Weeks Gestation 0 Eighteen To Twenty Week Daniel Update Ultra Sound Date Fundal Height At Umbil Quickening Date Ultra Sound Latest Weeks Gestation Final Daniel Confirmed By Final Daniel Confirmed Date Final Daniel Date Ultra Sound Latest Days Gestation 0 0 Menstrual History Last Menstrual Date Menses Monthly On Bcp Conception Prior Menses Frequency Hcg Plus Date Menarche Onset Age Delivery Information Delivery Date Delivery Type Labor Anesthesia Weeks Gestation Incision Type Labor Labor Length Hrs Delivered By Post Complications Tubal Sterilization Discharge Date Comments 4 38 Discharge Information Feeding Method Contraceptive Method Maternal HG B and HCT Levels Ob Episode Information Episode Created Date Number of Fetuses Patient Bloodtype Patient rh Status Prepregnancy Weight lbs Domestic Partner Domestic Partner Phone Father Name Adhesive Bandage Machine Operator Status 11/10/19 21 1 CLOSED Fetus Data First Name Last Name Admitted to NICU Weight (g) Sex Living Outcome Pediatric Complications Fetus ID Race Codes Race Delivery Type 2976.47 0704 M Full Term [id number] Vaginal Delivery Daniel Calculation Initial Daniel Date Initial Exam Date Initial Exam Provider Initial Ultrasound Date Last Menstrual Period Date Ultra Sound Weeks Gestation 0 Eighteen To Twenty Week Daniel Update Ultra Sound Date Fundal Height At Umbil Quickening Date Ultra Sound Latest Weeks Gestation Final Daniel Confirmed By Final Daniel Confirmed Date Final Daniel Date Ultra Sound Latest Days Gestation 0 0 Menstrual History Last Menstrual Date Menses Monthly On Bcp Conception Prior Menses Frequency Hcg Plus Date Menarche Onset Age Delivery Information Delivery Date Delivery Type Labor Anesthesia Weeks Gestation Incision Type Labor Labor Length Hrs Delivered By Post Complications Tubal Sterilization Discharge Date Comments 0 39 Discharge Information Feeding Method Contraceptive Method Maternal HG B and HCT Levels
--- OUTSIDE RECORDS SUMMARY | 2024-05-23 00:46 | XMS_ITS | Referral Summary ---
Author Organization [facility] Address [address] [place] [address] Care Team Providers Care Chief Transfer And Pumphouse Operator Name Role Phone Farhad Fuchs MD Primary Care Provider [phone] Source Comments [facility],non-owned Affiliates and Associated Physician Practices is amultiple site organization consisting of ambulatory clinics and hospital sitesin [place], [place], [place] and [place]. This disclosure is being madepursuant to the Care Everywhere program and may not contain all information available regarding this patient. Last updated 18.[facility] Allergies Active Allergy Reactions Criticality Noted Date [...] disorder 07/20/2015 Overview (03/09/2022): Depression with anxiety Social History Tobacco Use Types Packs/Day Years [...] Comments Blood Pressure 128/76 03/09/2022 10:42 AM [facility] Pulse 82 01/08/2016 7:54 AM CDT Temperature 36.6 C (97.8 F) 03/09/2022 10:42 AM [facility] Respiratory Rate 16 01/08/2016 7:54 AM CDT Oxygen Saturation 100% 01/08/2016 7:54 AM CDT Inhaled Oxygen Concentration - - Weight 85.1 kg (187 lb 9.6 oz) 03/09/2022 10:42 AM [facility] Height 157.5 cm (5' 2 ) 03/09/2022 10:42 AM [facility] Body Mass Index 34.31 03/09/2022 10:42 AM [facility] Functional Status Functional Status Response Date of Assess ment Is person deaf or have serious hearing difficult y? No 01/08/2016 Is person blind or have serious difficulty seein g? No 01/08/2016 Does person have serious dif ficulty walking/climbing stairs? No 01/08/2016 Does person have difficulty dressing/bathing? No 01/08/2016 Does person have difficulty doing errands alone? No 01/08/2016 Cognitive Status Response Date of Assessm ent Does person have difficulty concentrating/remembering/making decisions? No 01/08/2016 Plan of Treatment Not on file Procedures Procedure Name Priority Date/Time Associated Diagnosis Comments BASIC METABOLIC PANEL (CALCIUM TOTAL) AM Draw 01/08/2016 4:02 AM CDT Hypokalemia from Last 3 Months or Most Recently Relevant to Health Maintenance Results * BASIC METABOLIC PANEL (CALCIUM TOTAL) (01/08/2016 4:02 AM CDT) [facility] Glucose 95 74 - 106 mg/dL 01/08/2016 5:06 AM CDT [facility] Sodium 139 136 - 145 mmol/L 01/08/2016 5:06 AM CDT [facility] Potassium 3.8 3.5 - 5.1 mmol/L 01/08/2016 5:06 AM CDT [facility] Chloride 104 98 - 107 mmol/L 01/08/2016 5:06 AM CDT [facility] CO2 28 22 - 31 mmol/L 01/08/2016 5:06 AM CDT [facility] Calcium 8.9 8.5 - 10.1 mg/dL 01/08/2016 5:06 AM CDT [facility] Anion Gap 7 5 - 20 mmol/L 01/08/2016 5:06 AM CDT [facility] BUN 12 7 - 21 mg/dL 01/08/2016 5:06 AM CDT [facility] Creatinine 0.95 0.50 - 1.30 mg/dL 01/08/2016 5:06 AM CDT [facility] eGFR by MDRD >60 >60 mL/min/1.7 3m2 01/08/2016 5:06 AM CDT [facility] eGFR by MDRD >60 >60 mL/min/1.7 3m2 01/08/2016 5:06 AM CDT [facility] Blood BLOOD SPECIMEN / Unknown 01/08/2016 4:02 AM CDT 01/08/2016 4:35 AM CDT Michaela Winters MD LAB - CHEMISTRY ORDERABLES [facility] [address] [place] [address] from Last 3 Months or Most Recently Relevant to Health Maintenance Advance Directives * Full Code (Latest Code Status on File) Date Activated Date Inactivated Comments 01/07/2016 7:16 PM 01/08/2016 12:15 PM * Full Code Date Activated Date Inactivated Comments 01/07/2016 3:44 PM 01/07/2016 7:16 PM Care Teams Chief Transfer And Pumphouse Operator Relationship Specialty Start Date End Date Farhad Fuchs MD PCP - General 01/15/18
--- OUTSIDE RECORDS SUMMARY | 2024-05-23 00:46 | XMS_ITS | Clinical Summary ---
Author Organization [facility] Address [address] [place] [address] Phone Care Team Providers Care Client Consultant Name Role Phone Provider, Unknown Primary Care Provider Unavaila ble Social History Tobacco Use Types Packs/Day Years Used Date Smoking Tobacco: Never Assessed Comments Unknown Sex and Gender Information Value Date Recorded Sex Assigned at Not on file Legal Sex Female 5:24 PM CDT Gender Identity Not on file Sexual Orientation Not on file Plan of Treatment Not on file Care Teams Client Consultant Relationship Specialty Start Date End Date Provider, Unknown UNKNOWN PCP - General 10/12/16
--- OUTSIDE RECORDS SUMMARY | 2024-05-23 00:47 | XMS_ITS | Data Portability ---
Author Organization [facility] Address [address] [place] [address] Assessment No assessment recorded. Plan of Treatment Reminders Order Date Submit Date Provider Last Modified By Organization Details Last Modified Time Details Appointments None recorded. Lab TSH, serum or plasma 2016 017 [facility] (Lab), [address], [place], [address], 7 07:19:43 CBC 2016 017 [facility] (Lab), [address], [place], [address], 7 18:56:52 lipid panel, serum 2016 017 [facility] (Lab), [address], [place], [address], 7 19:38:55 CMP, serum or plasma 2016 017 [facility] (Lab), [address], [place], [address], 7 19:38:15 HbA1c (hemoglobi n A1c), blood 2016 017 [facility] (Lab), [address], [place], [address], 7 09:22:37 glucose, fingerstic k, blood 2016 017 [email or web address] In-Office Order, Internal Use Only DO Not Attach Compendium DO Not Attach Compendium, Do Not Delete/merge, [id number] 7 15:02:38 HbA1c (hemoglobi n A1c), blood 2016 [facility] (Lab), [address], [place], [address], 7 06:16:52 lipid panel w/ direct LDL, serum 2016 017 [facility] (Lab), [address], [place], [address], 7 20:10:49 BMP, serum or plasma 2016 017 [facility] (Lab), [address], [place], [address], 7 20:10:48 Referral None recorded. Procedures None recorded. Surgeries None recorded. Imaging None recorded. Medication Orders metoprolol tartrate 100 mg tablet 2016 017 [facility] #86774, [address], [place], [id number], 7 15:02:55 hydrochlor othiazide 25 mg tablet 2016 017 [facility] #56178, [address], [place], [id number], 7 15:02:48 fluoxetine 20 mg capsule 2016 017 [facility] #82820, [address] [place], [place], [id number], 7 15:02:47 Jackhorn 5 mg-325 mg tablet 2016 017 [facility] #17510, [address] [place], [place], [id number], 7 15:02:38 hydrochlor othiazide 25 mg tablet 2016 017 [facility], [address], [place], [place], [id number], 7 08:12:46 metformin 500 mg tablet 2016 017 [facility], [address], [place], [place], [id number], 7 08:12:47 metoprolol tartrate 100 mg tablet 2016 017 [facility]89659, [address], [place], [place], [id number], 7 08:12:47 naproxen 500 mg tablet 2016 017 [facility], [address], [place], [place], [id number], 7 08:12:46 atorvastat in 20 mg tablet 2016 017 [facility], [address], [place], [place], [id number], 7 08:12:49 hydrochlor othiazide 25 mg tablet 2016 017 [facility]540[facility], [address], [place], [place], [id number], 7 12:42:57 metformin 500 mg tablet 2016 017 [facility] #06074, [address], [place], [place], [id number], 7 12:42:58 metoprolol tartrate 100 mg tablet 2016 017 [facility] #59198, [address], [place], [place], [id number], 7 12:42:58 cyclobenza mike 10 mg tablet 2016 017 [facility], [address], [place], [place], [id number], 7 12:42:56 Jackhorn 5 mg-325 mg tablet 2016 017 [facility] #26883, [address], [place], [place], [id number], 7 12:00:51 atorvastat in 20 mg tablet 2016 017 [facility], [address], [place], [place], [id number], 7 12:42:56 hydrochlor othiazide 25 mg tablet 2016 017 [facility]47665, [address], [place], [place], [id number], 7 15:53:40 metformin 500 mg tablet 2016 017 [facility]94[facility], [address], [place], [place], [id number], 7 15:53:40 metoprolol tartrate 100 mg tablet 2016 017 [facility]06, [address], [place], [place], [id number], 7 15:53:40 cyclobenza mike 10 mg tablet 2016 017 [facility], [address], [place], [place], [id number], 7 15:53:39 Jackhorn 5 mg-325 mg tablet 2016 017 [facility] #65347, [address], [place], [place], [id number], 7 14:47:18 atorvastat in 20 mg tablet 2016 017 [facility] #12995, [address], [place], [place], [id number], 7 15:53:40 penicillin V potassium 500 mg tablet 2017 018 [facility] #95388, [address], [place], [place], [id number], 8 11:01:01 Tylenol-Co deine #3 300 mg-30 mg tablet 2017 018 [facility] #04822, [address], [place], [place], [id number], 8 11:00:55 hydrochlor othiazide 25 mg tablet 2017 018 [facility] #65276, [address], [place], [place], [id number], 8 11:01:07 metformin 500 mg tablet 2017 018 [facility] #54303, [address], [place], [place], [id number], 8 11:01:06 metoprolol tartrate 100 mg tablet 2017 018 [facility] #54870, [address], [place], [place], [id number], 8 11:01:06 atorvastat in 20 mg tablet 2017 018 [facility]368, [address], [place], [place], [id number], 8 11:01:16 Patient TargetsNo targets recorded. Patient Instructions Encounter Date Encounter Id Patient Instructions Last Modified By Organization Details Last Modified Time 08/03/2016 [id number] learning about high blood sugar Not available 08/03/2016 15:18:04 When You Want to Lose Weight: Care Instructions Not available 08/03/2016 15:18:04 back care and preventing injuries: care instructions Not available 08/03/2016 15:18:04 learning about high blood pressure Not available 08/03/2016 15:18:04 08/30/2016 [id number] learning about high blood sugar Not available 08/31/2016 09:35:46 When You Want to Lose Weight: Care Instructions Not available 08/31/2016 09:35:46 back care and preventing injuries: care instructions Not available 08/31/2016 09:35:46 learning about high blood pressure Not available 08/31/2016 09:35:46 high cholesterol : care instructions Not available 08/31/2016 09:35:46 11/04/2016 [id number] When You Want to Lose Weight: Care Instructions Not available 11/04/2016 12:56:56 back care and preventing injuries: care instructions Not available 11/04/2016 12:56:56 learning about high blood pressure Not available 11/04/2016 12:56:56 01/31/2017 [id number] learning about high blood sugar Not available 01/31/2017 17:02:36 When You Want to Lose Weight: Care Instructions Not available 01/31/2017 17:02:36 bronchitis: care instructions Not available 01/31/2017 17:02:36 back care and preventing injuries: care instructions Not available 01/31/2017 17:02:36 learning about high blood pressure Not available 01/31/2017 17:02:36 11/08/2017 [id number] tooth and gum pain: care instructions [email or web address] Not available 11/08/2017 11:00:55 When You Want to Lose Weight: Care Instructions [email or web address] Not available 11/08/2017 11:00:55 back care and preventing injuries: care instructions [email or web address] Not available 11/08/2017 11:00:55 learning about high blood pressure balbarcha Not available 11/08/2017 11:00:55 Reason for Referral None Reported. Results Created Date Observation Date Name Description Value Unit Range Abnormal Flag Note LastModifiedBy Organization Detail LastModifiedTime 08/04/19 17 08/03/2016 gluco se, finge rstic k, blood Blood Glucose: mg/dl 85 Not Available In-Off ice Order Internal Use Only DO Not Attach Compendium DO Not Attach Compendium, Do Not Delete/merge, [id number] 08/03/2016 15:00:04 08/04/19 17 08/03/2016 CBC WBC 8.0 K/uL 3.4-10 .8 Not Available [facility] (Lab) [address], [place], [address], 08/03/2016 18:56:51 08/04/19 17 08/03/2016 CBC red blood count 3.8 M/uL 4.2-5. 4 low Not Available [facility] (Lab) [address] [place], [address], 08/03/2016 18:56:51 08/04/19 17 08/03/2016 CBC hemoglobin 11.3 g/dL 11.5-1 5.5 low Not Available [facility] (Lab) [address] [place], [address], 08/03/2016 18:56:51 08/04/19 17 08/03/2016 CBC hematocrit 35.3 % 36.0-4 8.0 low Not Available [facility] (Lab) [address] [place], [address], 08/03/2016 18:56:51 08/04/1908/03/2016 CBC MCV 92 fL 80-95 Not Available [facility] (Lab) [address] [place], [address], 08/03/2016 18:56:51 08/04/19 17 08/03/2016 CBC MCHC 32 g/dL 32-36 Not Available [facility] (Lab) [address], [place], [address], 08/03/2016 18:56:51 08/04/19 17 08/03/2016 CBC platelets 359 K/uL 155-37 9 Not Available [facility] (Lab) [address], [place], [address], 08/03/2016 18:56:51 08/04/19 17 08/03/2016 CBC RDW 12.4 % 11.5-1 4.5 Not Available [facility] (Lab) [address], [place], [address], 08/03/2016 18:56:51 08/04/19 17 08/03/2016 CMP, serum or plasm a glucose, serum 92 mg/dL 65-99 Not Available [facility] ([facility]) [address], [place], [address], 08/03/2016 19:38:15 08/04/19 17 08/03/2016 CMP, serum or plasm a BUN 6 mg/dL 8-26 low Not Available [facility] (Lab) [address], [place], [address], 08/03/2016 19:38:15 08/04/19 17 08/03/2016 CMP, serum or plasm a creatinine, serum 0.70 mg/dL 0.50-1 .40 Not Available [facility] (Lab) [address], [place], [address], 08/03/2016 19:38:15 08/04/19 17 08/03/2016 CMP, serum or plasm a BUN/creatnin e ratio 8.6 Not Available [facility] [address], [place], [address], 08/03/2016 19:38:15 08/04/19 17 08/03/2016 CMP, serum or plasm a sodium, serum 139.0 mEq/L 136.0- 144.0 Not Available [facility] (Lab) [address], [place], [address], 08/03/2016 19:38:15 08/04/19 17 08/03/2016 CMP, serum or plasm a potassium, serum 4.0 mmol/ L 3.5-5. 3 Not Available [facility] (Lab) [address], [place], [address], 08/03/2016 19:38:15 08/04/19 17 08/03/2016 CMP, serum or plasm a chloride, serum 99 mmol/ l 101-11 1 low Not Available [facility] (Lab) [address], [place], [address], 08/03/2016 19:38:15 08/04/19 17 08/03/2016 CMP, serum or plasm a carbon dioxide total 25.7 mmol/ L 21.0-3 2.0 Not Available [facility] (Lab) [address], [place], [address], 08/03/2016 19:38:15 08/04/19 17 08/03/2016 CMP, serum or plasm a aniongp 18.0 mmol/ L Not Available [facility] (Lab) [address], [place], [address], 08/03/2016 19:38:15 08/04/19 17 08/03/2016 CMP, serum or plasm a calcium, serum 9.8 mg/dL 8.2-10 .0 Not Available [facility] (Lab) [address], [place], [address], 08/03/2016 19:38:15 08/04/19 17 08/03/2016 CMP, serum or plasm a total protein 8.5 g/dL 6.7-8. 2 high Not Available [facility] (Lab) [address], [place], [address], 08/03/2016 19:38:15 08/04/19 17 08/03/2016 CMP, serum or plasm a albumin, serum 4.6 g/dL 3.5-5. 5 Not Available [facility] (Lab) [address], [place], [address], 08/03/2016 19:38:15 08/04/19 17 08/03/2016 CMP, serum or plasm a agratio 1.2 Not Available [facility] (Lab) [address] [place], [address], 08/03/2016 19:38:15 08/04/19 17 08/03/2016 CMP, serum or plasm a bilt 0.4 mg/dL 0.2-1. 0 Not Available [facility] (Lab) [address] [place], [address], 08/03/2016 19:38:15 08/04/19 17 08/03/2016 CMP, serum or plasm a AST 27.0 U/L 10.0-4 2.0 Not Available [facility] (Lab) [address] [place], [address], 08/03/2016 19:38:15 08/04/19 17 08/03/2016 CMP, serum or plasm a ALT 34.0 U/L 10.0-6 0.0 Not Available [facility] (Lab) [address], [place], [address], 08/03/2016 19:38:15 08/04/19 17 08/03/2016 CMP, serum or plasm a alk phos 93.0 IU/L 42.0-1 21.0 Not Available [facility] (Lab) [address], [place], [address], 08/03/2016 19:38:15 08/04/19 17 08/03/2016 CMP, serum or plasm a osmol 275.0 mOsm/ L 275.0- 301.0 Not Available [facility] (Lab) [address] [place], [address], 08/03/2016 19:38:15 08/04/19 17 08/03/2016 CMP, serum or plasm a eGFR, AM 121 m/lmi n/1.7 3_m >=60 Not Available [facility] (Lab) [address], [place], [address], 08/03/2016 19:38:15 08/04/19 17 08/03/2016 CMP, serum or plasm a eGFR, non- AM 100 mL/mi n/1.7 3/m >=60 Not Available [facility] (Lab) [address], [place], [address], 08/03/2016 19:38:15 08/04/19 17 08/03/2016 lipid panel w/ direc t LDL, serum cholestrol 269.0 mg/dL 140.0- 200.0 high Not Available [facility] (Lab) [address], [place], [address], 08/03/2016 19:38:55 08/04/19 17 08/03/2016 lipid panel w/ direc t LDL, serum triglyceride s 130 mg/mL 150-19 9 low Not Available [facility] (Lab) [address], [place], [address], 08/03/2016 19:38:55 08/04/19 17 08/03/2016 lipid panel w/ direc t LDL, serum HDL cholesterol 62.0 mg/dL 40.0-1 00.0 Not Available [facility] (Lab) [address], [place], [address], 08/03/2016 19:38:55 08/04/19 17 08/03/2016 lipid panel w/ direc t LDL, serum LDL direct 198 mg/dL <=100 high Not Available [facility] ([facility]) [address], [place], [address], 08/03/2016 19:38:55 08/04/1908/03/2016 lipid panel w/ direc t LDL, serum cholhdl 4.30 mg/dL 0.00-4 .98 Not Available [facility] (Lab) [address] [place], [address], 08/03/2016 19:38:55 08/04/19 17 08/04/2016 TSH, serum or plasm a TSH 2.780 uIU/m L 0.450- 4.500 Not Available [facility] (Lab) [address], [place], [address], 08/04/2016 07:19:43 08/04/19 17 08/04/2016 TSH, serum or plasm a T4,free(dire ct) 1.00 NG/dL 0.82-1 .77 Not Available [facility] (Lab) [address], [place], [address], 08/04/2016 07:19:43 08/04/19 17 08/04/2016 HbA1c (hemo globi n A1c), blood hemoglobin A1C 6.5 % 4.8-5. 6 high . Pre-d iabet es: 5.7 - 6.4 Diabe linda: >6.4 Glyce mavis contr ol for adult s with diabe linda: <7.0 Not Available [facility] (Lab) [address], [place], [address], 08/04/2016 09:22:37 11/05/19 17 11/04/2016 BMP, serum or plasm a glucose, serum 98 mg/dL 65-[address] [facility] (Lab) [address], [place], [address], 11/04/2016 20:10:48 11/05/19 17 11/04/2016 BMP, serum or plasm a BUN 8 mg/dL 8-26 Not Available [facility] (Lab) [address] [place], [address], 11/04/2016 20:10:48 11/05/19 17 11/04/2016 BMP, serum or plasm a creatinine, serum 0.70 mg/dL 0.50-1 .40 Not Available [facility] (Lab) [address] [place], [address], 11/04/2016 20:10:48 11/05/19 17 11/04/2016 BMP, serum or plasm a BUN/creatnin e ratio 11.4 Not Available [facility] (Lab) [address], [place], [address], 11/04/2016 20:10:48 11/05/19 17 11/04/2016 BMP, serum or plasm a sodium, serum 141.0 mEq/L 136.0- 144.0 Not Available [facility] (Lab) [address], [place], [address], 11/04/2016 20:10:48 11/05/19 17 11/04/2016 BMP, serum or plasm a potassium, serum 3.9 mmol/ L 3.5-5. 3 Not Available [facility] (Lab) [address], [place], [address], 11/04/2016 20:10:48 11/05/19 17 11/04/2016 BMP, serum or plasm a chloride, serum 99 mmol/ l 101-11 1 low Not Available [facility] (Lab) [address], [place], [address], 11/04/2016 20:10:48 11/05/19 17 11/04/2016 BMP, serum or plasm a carbon dioxide total 28.2 mmol/ L 21.0-3 2.0 Not Available [facility] (Lab) [address], [place], [address], 11/04/2016 20:10:48 11/05/19 17 11/04/2016 BMP, serum or plasm a aniongp 18.0 mmol/ L Not Available [facility] (Lab) [address], [place], [address], 11/04/2016 20:10:48 11/05/19 17 11/04/2016 BMP, serum or plasm a calcium, serum 9.8 mg/dL 8.2-10 .0 Not Available [facility] (Lab) [address] [place], [address], 11/04/2016 20:10:48 11/05/19 17 11/04/2016 BMP, serum or plasm a osmol 280.0 mOsm/ L 275.0- 301.0 Not Available [facility] (Lab) [address] [place], [address], 11/04/2016 20:10:48 11/05/19 17 11/04/2016 BMP, serum or plasm a eGFR, AM 121 m/lmi n/1.7 3_m >=60 Not Available [facility] (Lab) [address] [place], [address], 11/04/2016 20:10:48 11/05/19 17 11/04/2016 BMP, serum or plasm a eGFR, non- AM 100 mL/mi n/1.7 3/m >=60 Not Available [facility] (Lab) [address], [place], [address], 11/04/2016 20:10:48 11/05/19 17 11/04/2016 lipid panel w/ direc t LDL, serum cholestrol 168.0 mg/dL 140.0- 200.0 Not Available [facility] (Lab) [address] [place], [address], 11/04/2016 20:10:49 11/05/19 17 11/04/2016 lipid panel w/ direc t LDL, serum triglyceride s 97 mg/mL 150-19 9 low Not Available [facility] (Lab) [address] [place], [address], 11/04/2016 20:10:49 11/05/19 17 11/04/2016 lipid panel w/ direc t LDL, serum HDL cholesterol 55.0 mg/dL 40.0-1 00.0 Not Available [facility] (Lab) [address] [place], [address], 11/04/2016 20:10:49 11/05/19 17 11/04/2016 lipid panel w/ direc t LDL, serum LDL direct 110 mg/dL <=100 high Not Available [facility] (Lab) [address] [place], [address], 11/04/2016 20:10:49 11/05/19 17 11/04/2016 lipid panel w/ direc t LDL, serum cholhdl 3.10 mg/dL 0.00-4 .98 Not Available [facility] ([facility]) [address], [place], [address], 11/04/2016 20:10:49 11/05/19 17 11/05/2016 HbA1c (hemo globi n A1c), blood hemoglobin A1C 6.6 % 4.8-5. 6 high . Pre-d iabet es: 5.7 - 6.4 Diabe linda: >6.4 Glyce mavis contr ol for adult s with diabe linda: <7.0 Not Available [facility] ([facility]) [address], [place], [address], 11/05/2016 06:16:52 10/31/19 18 10/30/2017 CBC w/ auto diff WBC 6.4 K/uL 3.4-10 .8 Not Available [facility] (Lab) [address], [place], [address], 10/30/2017 19:21:28 10/31/19 18 10/30/2017 CBC w/ auto diff red blood count 3.8 M/uL 4.2-5. 4 low Not Available [facility] (Lab) [address] [place], [address], 10/30/2017 19:21:28 10/31/19 18 10/30/2017 CBC w/ auto diff hemoglobin 11.6 g/dL 11.5-1 5.5 Not Available [facility] (Lab) [address] [place], [address], 10/30/2017 19:21:28 10/31/19 18 10/30/2017 CBC w/ auto diff hematocrit 35.4 % 36.0-4 8.0 low Not Available [facility] (Lab) [address] [place], [address], 10/30/2017 19:21:28 10/31/19 18 10/30/2017 CBC w/ auto diff MCV 94 fL 80-95 Not Available [facility] (Lab) [address] [place], [address], 10/30/2017 19:21:28 10/31/19 18 10/30/2017 CBC w/ auto diff MCH 31 pg 27-32 Not Available [facility] (Lab) [address] [place], [address], 10/30/2017 19:21:28 10/31/19 18 10/30/2017 CBC w/ auto diff MCHC 33 g/dL 32-36 Not Available [facility] (Lab) [address] [place], [address], 10/30/2017 19:21:28 10/31/19 18 10/30/2017 CBC w/ auto diff platelets 310 K/uL 155-37 9 Not Available [facility] (Lab) [address], [place], [address], 10/30/2017 19:21:28 10/31/19 18 10/30/2017 CBC w/ auto diff RDW 12.6 % 11.5-1 4.5 Not Available [facility] (Lab) [address], [place], [address], 10/30/2017 19:21:28 10/31/19 18 10/30/2017 CBC w/ auto diff MPV 10.7 fL 8.9-12 .7 Not Available [facility] (Lab) [address] [place], [address], 10/30/2017 19:21:28 10/31/19 18 10/30/2017 CBC w/ auto diff neutrophils absolute 2.2 K/uL 1.4-7. 0 Not Available [facility] (Lab) [address] [place], [address], 10/30/2017 19:21:28 10/31/19 18 10/30/2017 CBC w/ auto diff lymphs (absolute) 3.3 K/uL 0.7-3. 1 high Not Available [facility] (Lab) [address] [place], [address], 10/30/2017 19:21:28 10/31/19 18 10/30/2017 CBC w/ auto diff monocytes (absolute) 0.5 K/uL 0.1-0. 9 Not Available [facility] (Lab) [address] [place], [address], 10/30/2017 19:21:28 10/31/19 18 10/30/2017 CBC w/ auto diff eos (absolute) 0.4 K/uL 0.0-0. 4 Not Available [facility] (Lab) [address], [place], [address], 10/30/2017 19:21:28 10/31/19 18 10/30/2017 CBC w/ auto diff baso (absolute) 0.0 K/uL 0.1-0. 3 low Not Available [facility] (Lab) [address], [place], [address], 10/30/2017 19:21:28 10/31/19 18 10/30/2017 CBC w/ auto diff neut % 34.0 % 40.0-7 4.0 low Not Available [facility] (Lab) [address] [place], [address], 10/30/2017 19:21:28 10/31/19 18 10/30/2017 CBC w/ auto diff lymphs % 52.1 % 14.0-4 6.0 high Not Available [facility] (Lab) [address] [place], [address], 10/30/2017 19:21:28 10/31/19 18 10/30/2017 CBC w/ auto diff mono % 7.1 % 4.0-12 .0 Not Available [facility] (Lab) [address] [place], [address], 10/30/2017 19:21:28 10/31/19 18 10/30/2017 CBC w/ auto diff eos % 6 % <=5 high Not Available [facility] ([facility]) [address], [place], [address], 10/30/2017 19:21:28 10/31/19 18 10/30/2017 CBC w/ auto diff baso % 0.3 % 0.1-1. 1 Not Available [facility] (Lab) [address], [place], [address], 10/30/2017 19:21:28 10/31/19 18 10/30/2017 lipid panel w/ direc t LDL, serum cholestrol 165.0 mg/dL 140.0- 200.0 Not Available [facility] (Lab) [address], [place], [address], 10/30/2017 19:42:01 10/31/19 18 10/30/2017 lipid panel w/ direc t LDL, serum triglyceride s 139 mg/dL <=150 Not Available [facility] ([facility]) [address], [place], [address], 10/30/2017 19:42:01 10/31/19 18 10/30/2017 lipid panel w/ direc t LDL, serum HDL cholesterol 50.0 mg/dL 40.0-1 00.0 Not Available [facility] (Lab) [address], [place], [address], 10/30/2017 19:42:01 10/31/19 18 10/30/2017 lipid panel w/ direc t LDL, serum LDL direct 107 mg/dL <=100 high Not Available [facility] ([facility]) [address], [place], [address], 10/30/2017 19:42:01 10/31/19 18 10/30/2017 lipid panel w/ direc t LDL, serum cholhdl 3.30 mg/dL 0.00-4 .98 Not Available [facility] (Lab) [address] [place], [address], 10/30/2017 19:42:01 10/31/19 18 10/30/2017 CMP, serum or plasm a glucose, serum 90 mg/dL 65-[address] [facility] (Lab) [address], [place], [address], 10/30/2017 19:42:06 10/31/19 18 10/30/2017 CMP, serum or plasm a BUN 8 mg/dL 8-26 Not Available [facility] (Lab) [address], [place], [address], 10/30/2017 19:42:06 10/31/19 18 10/30/2017 CMP, serum or plasm a creatinine, serum 0.70 mg/dL 0.50-1 .40 Not Available [facility] (Lab) [address], [place], [address], 10/30/2017 19:42:06 10/31/19 18 10/30/2017 CMP, serum or plasm a BUN/creatnin e ratio 11.4 Not Available [facility] (Lab) [address], [place], [address], 10/30/2017 19:42:06 10/31/19 18 10/30/2017 CMP, serum or plasm a sodium, serum 139.0 mEq/L 136.0- 144.0 Not Available [facility] (Lab) [address], [place], [address], 10/30/2017 19:42:06 10/31/19 18 10/30/2017 CMP, serum or plasm a potassium, serum 4.6 mmol/ L 3.5-5. 3 Not Available [facility] (Lab) [address], [place], [address], 10/30/2017 19:42:06 10/31/19 18 10/30/2017 CMP, serum or plasm a chloride, serum 102 mmol/ l 101-11 1 Not Available [facility] (Lab) [address] [place], [address], 10/30/2017 19:42:06 10/31/19 18 10/30/2017 CMP, serum or plasm a carbon dioxide total 25.9 mmol/ L 21.0-3 2.0 Not Available [facility] (Lab) [address], [place], [address], 10/30/2017 19:42:10/31/19 18 10/30/2017 CMP, serum or plasm a aniongp 16.0 mmol/ L Not Available [facility] (Lab) [address], [place], [address], 10/30/2017 19:42:10/31/19 18 10/30/2017 CMP, serum or plasm a calcium, serum 10.1 mg/dL 8.2-10 .0 high Not Available [facility] (Lab) [address], [place], [address], 10/30/2017 19:42:10/31/19 18 10/30/2017 CMP, serum or plasm a total protein 8.0 g/dL 6.7-8. 2 Not Available [facility] (Lab) [address] [address], [place], [address], 10/30/2017 19:42:10/31/19 18 10/30/2017 CMP, serum or plasm a albumin, serum 4.5 g/dL 3.5-5. 5 Not Available [facility] (Lab) [address] [place], [address], 10/30/2017 19:42:10/31/19 18 10/30/2017 CMP, serum or plasm a agratio 1.3 Not Available [facility] (Lab) [address] [place], [address], 10/30/2017 19:42:10/31/19 18 10/30/2017 CMP, serum or plasm a bilt 0.3 mg/dL 0.2-1. 0 Not Available [facility] (Lab) [address] [place], [address], 10/30/2017 19:42:06 10/31/19 18 10/30/2017 CMP, serum or plasm a AST 21.0 U/L 10.0-4 2.0 Not Available [facility] (Lab) [address] [place], [address], 10/30/2017 19:42:06 10/31/19 18 10/30/2017 CMP, serum or plasm a ALT 23.0 U/L 10.0-6 0.0 Not Available [facility] (Lab) [address] [place], [address], 10/30/2017 19:42:06 10/31/19 18 10/30/2017 CMP, serum or plasm a alk phos 87.0 IU/L 42.0-1 21.0 Not Available [facility] (Lab) [address] [place], [address], 10/30/2017 19:42:06 10/31/19 18 10/30/2017 CMP, serum or plasm a osmol 275.0 mOsm/ L 275.0- 301.0 Not Available [facility] (Lab) [address] [place], [address], 10/30/2017 19:42:06 10/31/19 18 10/30/2017 CMP, serum or plasm a eGFR, AM 120 m/lmi n/1.7 3_m >=60 Not Available [facility] (Lab) [address] [place], [address], 10/30/2017 19:42:06 10/31/19 18 10/30/2017 CMP, serum or plasm a eGFR, non- AM 99 mL/mi n/1.7 3/m >=60 Not Available [facility] (Lab) [address] [place], [address], 10/30/2017 19:42:06 10/31/19 18 10/30/2017 TSH, serum or plasm a TSH 2.25 uIU/m L 0.50-4 .50 Not Available [facility] (Lab) [address] [place], [address], 10/30/2017 20:06:36 10/31/19 18 10/31/2017 HbA1c (hemo globi n A1c), blood hemoglobin A1C 5.9 % 4.8-5. 6 high . Pre-d iabet es: 5.7 - 6.4 Diabe linda: >6.4 Glyce mavis contr ol for adult s with diabe linda: <7.0 Not Available [facility] (Lab) [address] [facility], [place], [address], 10/31/2017 07:10:00 10/31/19 18 10/31/2017 T4, total , serum thyroxine T4 6.8 ug/dL 4.5-12 .0 Not Available [facility] (Lab) [address] [facility], [place], [address], 10/31/2017 10:11:05 11/22/19 17 11/19/2016 imagi ng/di agnos tic resul t No observ ation record ed. [facility] (Imaging) [address], [place], [address], 01/31/2017 15:40:59 12/07/19 17 imagi ng/di agnos tic resul t No observ ation record ed. [facility] Not Available 2016 15:40:59 02/26/20 18 02/25/2018 CT, abdom en + pelvi s, w/ contr ast No observ ation record ed. [facility] Not Available 2017 13:14:24 Result Notes None recorded. Problems Name Problem SNOMED Code Status Onset Date Resolution Date Notes Provider Name and Address Organization Details Recorded Time Essential hypertension 81172814 Active Farhad Fuchs MD Attn: Louie beckwith,[address] [place], [address], [facility] 6 17:37:32 Low back pain 221329432 Active Farhad Fuchs MD Attn: Louie beckwith,[address] [facility], [place], [address], [facility] 6 17:37:32 Macromastia 260012689 Active Farhad Fuchs MD Attn: Louie beckwith,[address] [facility], [place], [address], [facility] 6 17:37:32 Obesity 471258228 Active 2016 Carson Benavides MD Attn: Louie beckwith,[address] [facility], [place], [address], [facility] 7 14:52:44 Hyperglycemia 74283977 Active 2016 Carson Benavides MD Attn: Louie beckwith,[address] [facility], [place], [address], [facility] 7 15:44:21 Problem Notes None recorded. Procedures Surgical History None recorded. Imaging Results Imaging Date Name Status LastModified by Organiz ation Details LastModified Time 11/19/2016 imaging/diagn ostic result completed [facility] (Imaging) [address], [place], [address], 01/31/2017 15:40:59 12/06/2016 imaging/diagn ostic result completed [facility] Information not available 01/31/2017 15:40:59 02/25/2018 CT, abdomen + pelvis, w/ contrast [facility] not available 02/27/2018 13:14:24 Procedure Notes None recorded. Medical Equipment None Reported. Allergies No known drug allergies Medications Name Sig Start Date Stop Date Status Note LastModified by Organization Details LastModified Time Prescriptio n - Renewal active Not Available Not Available Not Available prednisone tab 20mgprednis one active Not Available Not Available Not Available ondansetron hcl 4 mg tabs active Not Available Not Available Not Available fluoxetine cap 20mgfluoxet ine hcl active Not Available Not Available Not Available cyclobenzap rine hcl 10 mg tabs active Not Available Not Available Not Available ciprofloxac in hcl 500 mg tabs active Not Available Not Available Not Available oxycodone/a cetaminophe n 5-325 mg tabs active Not Available Not Available Not Available metoprolol tab 100mg ermetoprolo l succinate er active Not Available Not Available Not Available penicilln vk tab 500mgpenici llin v potassium active Not Available Not Available No t Available ventolin hfa aerventolin hfa active Not Available Not Available Not Available hydrochloro thiazide 25 mg tabs active Not Available Not Available Not Available methylpredn isolone dose pack 4 mg tabs active Not Available Not Available Not Available amoxicillin cap 500mgamoxic illin active Not Available Not Available Not Available hydroco/apa p tab 5-325mghydr ocodone/yamileth taminophen active Not Available Not Available N ot Available fluoxetine hcl 20 mg caps active Not Available Not Available Not Available naproxen 500 mg tabs active Not Available Not Available Not Available hydrochloro t tab 25mghydroch lorothiazid e active Not Available Not Available Not Available azithromyci n tab 250mgazithr omycin active Not Available Not Available Not Available naproxen tab 500mgnaprox en active Not Available Not Available Not Available apap/codein e tab 300-30mgace taminophen/ codeine #3 active Not Available Not Available N ot Available losartan/hc t tab 100-25losar nagel potassium/h ydrochlorot hiazide 01/31 completed Not Available Not Available Not Available metoprolol tab 50mg ermetoprolo l succinate er active Not Available Not Available Not Available ondansetron tab 4mgondanset kishan hcl active Not Available Not Available Not Available guaiatussin syp acguaiatuss in ac active Not Available Not Available Not Available hydrocodone /acetaminop hen 5-325 mgtabs active Not Available Not Available Not Available metoprolol tartrate 100 mg tabs active Not Available Not Available Not Available methylpred linus 4mgmethylpr ednisolone dose pack active Not Available Not Available No t Available cyclobenzap r tab 10mgcyclobe nzaprine hcl active Not Available Not Available Not Available oxycod/apap tab 5-325mgoxyc odone/aceta minophen active Not Available Not Available Not Available cyclobenzap rine 10 mg tablet Take 1 tablet every day by oral route at bedtime for 4 days. active Not Available Not Available No t Available amoxicillin 500 mg capsule active Not Available Not Available Not Available metformin 500 mg tablet TAKE 1 TABLET BY MOUTH TWICE DAILY active Not Available Not Available No t Available atorvastati n 20 mg tablet TAKE 1 TABLET BY MOUTH EVERY DAY 2019 active Not Available Not Available Not Avai lable azithromyci n 250 mg tablet TAKE 2 TABLETS (500 MG) BY ORAL ROUTE ONCE DAILY FOR 1 DAY THEN 1 TABLET (250 MG) BY ORAL ROUTE ONCE DAILY FOR 4 DAYS active Not Available Not Available No t Available ibuprofen 800 mg tablet active Not Available Not Available Not Available metoprolol tartrate 100 mg tablet TAKE 1 TABLET BY MOUTH DAILY active Not Available Not Available No t Available fluconazole 150 mg tablet active Not Available Not Available Not Available benzonatate 200 mg capsule active Not Available Not Available Not Available hydrocodone 5 mg-acetamin ophen 325 mg tablet Take 1 tablet every 6-8 hours by oral route as needed. active Not Available Not Available No t Available metronidazo le 0.75 % (37.5 mg/5 gram) vaginal gel active Not Available Not Available Not Available ondansetron HCl 4 mg tablet active Not Available Not Available Not Available penicillin V potassium 500 mg tablet Take 1 tablet every 8 hours by oral route. 2017 active Not Available Not Available Not Avai lable metronidazo le 500 mg tablet active Not Available Not Available Not Available valacyclovi r 500 mg tablet active Not Available Not Available Not Available oxycodone-a cetaminophe n 5 mg-325 mg tablet active Not Available Not Available No t Available famotidine 20 mg tablet active Not Available Not Available Not Available dicyclomine 20 mg tablet active Not Available Not Available Not Available cephalexin 500 mg capsule active Not Available Not Available Not Available Norvasc 5 mg tablet Take 1 tablet every day by oral route as directed for 30 days. 2014 active Not Available Not Available Not Avai lable hydrochloro thiazide 25 mg tablet TAKE 1 TABLET BY MOUTH DAILY 2018 active Not Available Not Available Not Avai lable Cheratussin AC 10 mg-100 mg/5 mL oral liquid active Not Available Not Available Not Available Tylenol-Cod eine #3 300 mg-30 mg tablet Take 1 tablet every 8 hours by oral route as needed. 2017 active Not Available Not Available Not Avai lable ketoconazol e 2 % topical cream active Not Available Not Available Not Available ondansetron 4 mg disintegrat ing tablet active Not Available Not Available N ot Available fluoxetine 20 mg capsule TAKE ONE CAPSULE BY MOUTH TWICE DAILY active Not Available Not Available No t Available fluticasone propionate 50 mcg/actuati on nasal spray,suspe nsion active Not Available Not Available Not Available naproxen 500 mg tablet Take 1 tablet twice a day by oral route as directed for 30 days. active Not Available Not Available No t Available Ventolin HFA 90 mcg/actuati on aerosol inhaler active Not Available Not Available Not Available K-Tab 10 mEq tablet,exte nded release Take 1 tablet every day by oral route with meals for 30 days. 2015 active Not Available Not Available Not Avai lable cyclobenzap rine 5 mg tablet active Not Available Not Available Not Available TRUEplus Lancets 30 gauge active Not Available Not Available Not Available True Metrix Glucose Test Strip active Not Available Not Available N ot Available True Metrix Glucose Meter USE DIRECTED 2016 active Not Available Not Available Not Avai lable Vitals Date Recorded Body height Body mass index (BMI) Body weight Heart rate Respiratory rate Body temperature Systolic blood pressure Diastolic blood pressure Provider Name and Address Organization Details Last Updated DateTime 8 157.48 cm 34.4 kg/m2 12208.3 7 g 76 /min 20 /min 98.5 [degF] 110 mm[Hg] 88 mm[Hg] José Miguel Rosen MA [facility] 8 10:37:37 Date Recorded Body weight Body height Body mass index (BMI) Heart rate Respiratory rate Body temperature Systolic blood pressure Diastolic blood pressure Provider Name and Address Organization Details Last Updated DateTime 7 19267.0 7 g 157.48 cm 36.8 kg/m2 76 /min 20 /min 98 [degF] 140 mm[Hg] 100 mm[Hg] José Miguel Rosen MA [facility] 7 14:38:39 Date Recorded Body height Body weight Body mass index (BMI) Heart rate Respiratory rate Systolic blood pressure Diastolic blood pressure Provider Name and Address Organization Details Last Updated DateTime 7 157.48 cm 46739.4 7 g 36.6 kg/m2 80 /min 24 /min 130 mm[Hg] 100 mm[Hg] José Miguel Rosen MA [facility] 7 17:19:17 Date Recorded Body height Body mass index (BMI) Body weight Heart rate Respiratory rate Body temperature Systolic blood pressure Diastolic blood pressure Provider Name and Address Organization Details Last Updated DateTime 7 157.48 cm 35.5 kg/m2 40467.9 2 g 76 /min 20 /min 98.1 [degF] 120 mm[Hg] 88 mm[Hg] Justinguerazoësanthosh Rosen[facility]UMBLE [facility] [place] [facility] 7 12:22:51 Date Recorded Body height Body mass index (BMI) Body weight Heart rate Respiratory rate Body temperature Systolic blood pressure Diastolic blood pressure Provider Name and Address Organization Details Last Updated DateTime 7 157.48 cm 35.8 kg/m2 11016.1 g 76 /min 20 /min 98.3 [degF] 130 mm[Hg] 100 mm[Hg] José Miguel Rosen [place] [facility] 7 15:31:42 Social History None recorded. Functional Status None recorded. Mental Status None recorded. Family History Nothing Reported. Medical History No medical history recorded. Gynecological HistoryNo gynecological history recorded. Obstetrics History GPAL:G 0 P 0 0 0 0 Past Encounters Encounter ID Performer Location Encounter Start Date Encounter Closed Date Diagnosis/Indication Diagnosis SNOMED-CT Code Diagnosis ICD10 Code Diagnosis Note [id number] Ophelia Emery LPN [facility] (Adult/Fa m Med) [address] [place] [address] 07/24/2014 13:56:05 07/24/2014 17:56:19 Essential hypertension 96318519 Low back pain 787967226 [id number] Paulina Anaya [facility] (Adult/Fa m Med) [address] [place] [address] 02/02/2015 10:57:57 02/03/2015 10:59:32 Essential hypertension 39054956 I10 Low back pain 411844140 M54.5 [id number] Columba [facility] (Adult/Fa m Med) [address] [place] [address] 02/11/2015 15:18:29 02/11/2015 18:05:07 Essential hypertension 08693164 I10 Low back pain 992422808 M54.5 [id number] Columba Crooks [facility] (Adult/Fa m Med) [address] [place] [phone] 03/30/2015 16:24:13 03/31/2015 16:59:15 Essential hypertension 24457143 I10 Low back pain 167409436 M54.5 [id number] Paulina Anaya [facility] (Adult/Fa m Med) [address] [place] [address] 05/13/2015 15:36:43 05/15/2015 15:22:39 Essential hypertension 28611852 I10 Low back pain 869790613 M54.5 Macromastia 909219365 N6 2 [id number] Carson Benavides MD [facility] (Adult/Fa m Med) [address] [place] [phone] 08/03/2016 14:25:28 08/04/2016 08:56:28 Low back pain 259233940 M54.5 continue meds. may needs MRIcan not take NSAIDs or Tramadol? Essential hypertension 18937743 I10 controlled Obesity 534416599 E66.9 diet/exerc ises. Hyperglycemia 22157576 R 73.9 on metformin but is reluctant to take it. asking for labs. [id number] Carson Benavides MD [facility] (Adult/Fa m Med) [address] [place] [phone] 08/30/2016 16:10:24 08/31/2016 09:54:10 Obesity 564185015 E66.9 diet/exerc ises. Low back pain 346265224 M54.5 continue meds. prn Vicodin. Macromastia 621261126 N6 2 supposed to have reduction surgery in November Essential hypertension 57095706 I10 controlled Hyperglycemia 39124105 R 73.9 on metformin but is reluctant to take it.repeate d labs showed HgA1C 6.5--> restart metformin 500 mg po BID/ diet/exerc ises.had glucometer at home. Hyperlipidemia 25881342 E78.5 LDL 048 [id number] Carson Benavides MD [facility] (Adult/Fa m Med) [address] [place] [phone] 11/04/2016 12:08:27 11/08/2016 09:55:49 Obesity 133417748 E66.9 diet/exerc ises. Low back pain 979484060 M54.5 continue meds. prn Vicodin. Essential hypertension 36646411 I10 controlled Macromastia 006549504 N6 2 supposed to have reduction surgery in November Hyperlipidemia 15920042 E78.5 LDL 198 Hyperglycemia 83936020 R 73.9 on metformin. repeat labs [id number] Carson Benavides MD [facility] (Adult/Fa m Med) [address] [place] [address] 01/31/2017 15:26:15 02/01/2017 16:03:17 Obesity 511726169 E66.9 diet/ exercises. Low back pain 154776577 M54.5 continue meds. Macromastia 025781742 N6 2 had reduction surgery Essential hypertension 54069458 I10 controlled Bronchitis 17093920 J40 OTC meds. Hyperglycemia 54786330 R 73.9 Hga1C 6.5--> 6.6on metformin. Hyperlipidemia 95446901 E78.5 LDL is better [id number] Carson Benavides MD [facility] (Adult/Fa m Med) [address] [place] [address] 11/08/2017 10:13:35 11/08/2017 13:55:10 Obesity 099600854 E66.9 diet/ exercises. Low back pain 087574427 M54.5 continue meds. Essential hypertension 21443770 I10 controlled Hyperlipidemia 38268525 E78.5 LDL is better Hyperglycemia 88897135 R 73.9 Hga1C 6.5--> 6.6 --> 5.9on metformin. 1/2 tab po bid Toothache 55204146 K08.8 9 Health Concerns Section Related Observation LastModified by Organization Detai ls LastModified Time None Recorded Concern Status LastModified by Organization Details LastModified Time None Recorded Advance Directives Directive None Recorded Payers Encounter Date Sequence Insurance Name Policy Number Policy Rivera Covered Member ID Rivera Member ID Guarantor Name 08/03/2016 1 [facility] (MEDICAID HMO) [id number] Johanna Dominguez [id number] Roshonda Estela 08/30/2016 1 [facility] (MEDICAID HMO) [id number] Johanna Dominguez [id number] Roshonda [place] 11/04/2016 1 [facility] (MEDICAID HMO) [id number] Roshonda Zechariah Dominguez [id number] Roshonda [place] 01/31/2017 1 [facility] (MEDICAID HMO) [id number] Roshonda L Dominguez [id number] Roshonda [place] 11/08/2017 1 [facility] (MEDICAID HMO) [id number] Rohinihonda Zechariah Dominguez [id number] Roshonda [place] Notes Date Note Type Note Provider Name and Address Organization Details Recorded Time 08/03/2016 text/html no complaints Carson Benavides MD Attn: Accounting,[address] [place], [address], [facility] 08/03/2016 15:03:27 08/30/2016 text/html left foot pain after trauma/ fractured toe Carson Benavides MD Attn: Accounting,[address] [place], [address], [facility] 08/31/2016 08:13:13 11/04/2016 text/html no new complaints Carson Benavides MD Attn: Accounting[address] [place], [address], [facility] 11/04/2016 12:43:17 01/31/2017 text/html no new complaints Carson Benavides MD Attn: Accounting,[address] [place], [address], [facility] 01/31/2017 15:56:04 11/08/2017 text/html no new complaints Carson Benavides MD Attn: Accounting[address] [place], [address], [facility] 11/08/2017 11:01:30 OBGyn Episode No OBEpisode recorded.
--- OUTSIDE RECORDS SUMMARY | 2024-05-23 00:47 | XMS_ITS | Clinical Summary ---
Author Organization [facility] Address [facility] [place] [address] Care Team Providers Care Art Objects Repairer Name Role Phone Viridiana Zaidi NP Primary Care Provider [phone] Allergies Active Allergy Reactions Criticality Noted Date Comments Lisinopril Swelling 03/09/2022 Medications Glucose Blood (BLOOD GLUCOSE TEST STRIPS) StripIndications: Prediabetes 1 Device by Does not apply route 3 (three) times daily as needed. Check blood sugar three times a day before meals as needed. 300 strip 3 02/04/20 22 Active Blood Glucose Monitoring Suppl (ONE TOUCH ULTRA 2) w/Device KitIndications:Pr ediabetes 1 Device by Does not apply route 3 (three) times daily. Check blood sugar three times a day before meals as needed 1 kit 02/04/20 Active Lancets (ONETOUCH ULTRASOFT) lancetsIndication s:Prediabetes 1 each by Other route as needed. Check blood sugar three times a day before meals as needed 100 each 3 02/04/20 22 Active albuterol sulfate HFA 108 (90 Base) MCG/ACT inhalerIndication s:Bronchitis due to COVID-19 virus Inhale 2 puffs into the lungs every 6 (six) hours as needed for Wheezing or Shortness of breath. 18 g 11/10/19 24 Active Cholecalciferol 50 MCG (1999) TabIndications:Vi tamin D deficiency Take 1 tablet by mouth daily. 90 tablet 1 12/11/19 24 Active omeprazole (PRILOSEC) 20 MG capsuleIndication s:Gastroesophagea l reflux disease, unspecified whether esophagitis present TAKE 1 CAPSULE(20 MG) BY MOUTH IN THE MORNING 90 capsule 1 12/11/19 24 Active metoprolol tartrate (LOPRESSOR) 100 MG tabletIndications :Hypertension, unspecified type take 1 tablet by mouth daily 90 tablet 1 12/20/19 24 Active metFORMIN (GLUCOPHAGE) 500 MG tabletIndications :Prediabetes take 1 tablet by mouth twice daily 180 tablet 1 12/20/19 24 Active semaglutide (OZEMPIC) 2 MG/3ML injection (PEN)Indications: Diabetes Mellitus Inject 0.25 mg into the skin every 7 days. Indications: Diabetes 3 mL 03/20/20 24 Active meloxicam (MOBIC) 7.5 MG tabletIndications :Bilateral low back pain, unspecified chronicity, unspecified whether sciatica present Take 1 tablet (7.5 mg total) by mouth daily. 90 tablet 03/20/20 24 Active amLODIPine (NORVASC) 10 MG tabletIndications :Hypertension, unspecified type TAKE 1 TABLET(10 MG) BY MOUTH DAILY 90 tablet 1 04/29/19 25 Active atorvastatin (LIPITOR) 20 MG tabletIndications :Hyperlipidemia, unspecified hyperlipidemia type TAKE 1 TABLET BY MOUTH EVERY DAY 90 tablet 1 04/29/19 25 Active atorvastatin (LIPITOR) 20 MG tabletIndications :Hyperlipidemia, unspecified hyperlipidemia type take 1 tablet by mouth every day 90 tablet 1 07/02/19 24 025 Discontinued amLODIPine (NORVASC) 10 MG tabletIndications :Hypertension, unspecified type TAKE 1 TABLET(10 MG) BY MOUTH DAILY 90 tablet 1 07/02/19 24 025 Discontinued Active Problems Problem Noted Date Diagnosed Date Type 2 diabetes mellitus wit hout complication, without long-term current use of insulin ([facility]) 12/11/2023 Overview (12/11/2023): Recent A1C was 6.4 and pt takes Metformin 500mg twice a day. Assessment & Plan (12/11/2023 10:51 AM CDT): Pt has not been consistent in taking her metfromin BID and diet has been poor. We went over the importance of taking her medication as directed and working on her diet. Recommendations given to assist with this. Goal for blood sugars to be between 80-130 fasting and 180 or less two hours after eating. Be sure you have a diabetic eye exam yearly. Encourage daily foot checks, avoid walking around barefoot. Goal for A1C to below 7 Urine Microalbumin- YOBANY/ARB- no, drug allergy LDL- 77 Statin-yes Foot exam- 12/11/23 normal Urine microalbumin- 12/05/23 Lumbosacral radiculopathy 12/11/2023 Overview (12/11/2023): Still occurs. Had seen pain management but was not interested in injections. Would like to go back to PT and with someone in [place]. Assessment & Plan (12/11/2023 10:44 AM CDT): Referral to PT in [place] placed. Gastroesophageal reflux dise ase, unspecified whether esophagitis present 12/11/2023 Overview (12/11/2023): Chronic and that she feels she is needing a refill on omeprazole. She takes 20 mg daily. She states will take for a few months and then will stop. Assessment & Plan (12/11/2023 10:48 AM CDT): Refill on omeprazole 20 mg sent. Diet and lifestyle recommendations also given. Seasonal allergic rhinitis 02/03/2022 Anxiety and depression 10/19/2021 Overview (12/11/2023): Still an issue but she is not interested in medication. She feels if her physical health improve her mental health will. Assessment & Plan (12/11/2023 10:46 AM CDT): Encourage stress relieving activities. Health head athletic trainer/strength coach also recommended. Vitamin D deficiency 10/19/2021 Overview (12/11/2023): Hx of vitamin D deficiency. Recent Vitmain D level came back low at 20.6 Assessment & Plan (12/11/2023 10:51 AM CDT): Vitamin D low. Recommend 2000IU of D3 daily. Script sent. Pt to have rechecked in 3 months. Chronic anemia 07/10/2019 Overview (12/11/2023): Had been following with Dr. De Oliveira for this and for lymphocytosis. Assessment & Plan (12/11/2023 10:17 AM CDT): Continue to follow up with Dr. De Oliveira as directed. Obesity (BMI 30-39.9) 08/03/2016 Overview (12/11/2023): Has not been doing well with her diet and exercise. She is motivated to make change. Assessment & Plan (12/11/2023 10:45 AM CDT): Diet and lifestyle changes discussed. Encourage health head athletic trainer/strength coach as well and personal coach to help with accountability. Pt's goals are to feel better to improve her physical and mental health and to get off medication. Essential hypertension 11/18/2015 Overview (12/11/2023): Hypertension has been well controlled. Taking Amlodipine 10mg daily and HCTZ 12.5mg daily. Drug allergy to lisinopril. Assessment & Plan (12/11/2023 10:15 AM CDT): Chronic condition, controlled. No changes needed at this time. Goal for BP to stay 130/80 or less. Resolved Problems Problem Noted Date Diagnosed Date Resolved Date Microscopic hematuria 07/05/20232023 Elevated liver enzymes 07/05/202312/10 Pelvic pain 07/05/2023 12/11/2023 Sprain of left ankle, unspec ified ligament, subsequent encounter 03/16/2022 12/11/2023 Abdominal pain, unspecified abdominal location 09/07/2021 09/07/2021 Low back pain 06/24/2021 12/11/2023 Macromastia 06/24/2021 12/11/2023 Prediabetes 06/24/2021 12/11/2023 Hyperglycemia 01/31/2017 12/11/2023 Encounters Date Type Department Care Team Description 04/02/2024 Scan [facility] SRV[facility] Scanned, [facility] 03/21/2024 Scan [facility] INFO SRVCS Scanned, Doc [facility] 03/20/2024 2:00 PM JUNIOR ARCHITECT Office Visit [facility] Family Medicine - [address] [place] [address] Viridiana Zaidi NP Obesity (Patient presents to discuss weight loss options) 03/20/2024 Travel 03/19/2024 Scan [facility] HEALTH INFO SRVCS Scanned, Doc Med [facility] 03/11/2024 Travel 03/01/2024 6:15 AM JUNIOR ARCHITECT - 03/01/2024 11:59 PM JUNIOR ARCHITECT Hospital Encounter [facility] Ultrasound [address] [place] [address] Lori Bob MD Discharge Disposition: Home or Self Care (Routine Discharge) 03/01/2024 Travel from Last 3 Months Immunizations Name Administration Dates Next Due PFIZER COVID-19 (MITCHELL CAP), MRNA, LNP-S, PF, 30 MCG/0.3 ML JOHN-SUCROSE, IM 05/12/2021 PFIZER COVID-19 (ORIGINAL FO RMULATION, PURPLE CAP) mRNA, LNP-S, PF, 30 MCG/0.3 ML DOSE 07/18/2020 Family History Medical History Relation Comments Diabetes Father Hypertension Father Breast Cancer Maternal Aunt unsure of age Diabetes Mother Diabetes-type 2 Mother Hypertension Mother Relation Status Comments Father Alive Maternal Aunt Alive Mother Alive Social History Tobacco Use Types Packs/Day Years Used Date Smoking Tobacco: Never Passive Smoke Exposure: Never Smokeless Tobacco: Never Tobacco Cessation:Counseling Given: No Comments:The provider can provide you with more information about quitting. Alcohol Use Standard Drinks/Week Comments No 0 (1 standard drink = 0.6 oz pur e alcohol) PHQ-2 Answer Date Recorded Patient Health Questionnaire-2 Score 0 12/11/2023 Comments No Sex and Gender Information Value Date Recorded Sex Assigned at Not on file Legal Sex Female 1:46 AM CDT Gender Identity Not on file Sexual Orientation Not on file Last Filed Vital Signs Vital Sign Reading Time Taken Comments Blood Pressure 122/80 03/20/2024 2:03 PM JUNIOR ARCHITECT Pulse 94 03/20/2024 2:03 PM JUNIOR ARCHITECT Temperature 37.1 C (98.8 F) 03/20/2024 2:03 PM JUNIOR ARCHITECT Respiratory Rate 18 03/20/2024 2:03 PM JUNIOR ARCHITECT Oxygen Saturation 100% 03/20/2024 2:03 PM JUNIOR ARCHITECT Inhaled Oxygen Concentration - - Weight 90.3 kg (199 lb) 03/20/2024 2:03 PM JUNIOR ARCHITECT Height 157.5 cm (5' 2 ) 03/20/2024 2:03 PM JUNIOR ARCHITECT Body Mass Index 36.4 03/20/2024 2:03 PM JUNIOR ARCHITECT Plan of Treatment Upcoming Encounters Date Type Department Care Team (Late st Contact Info) Description 07/02/2024 12:30 PM CDT Appointment [facility] [address] [place], [place] [phone] Lori Bob MD [address] [place] [phone] 07/02/2024 1:00 PM CDT Appointment [facility] [address] [place], [place] [id number] Lori Bob MD [address] [place] [phone] Health Maintenance Due Date Last Done Comments Colorectal Cancer Screening Colonoscopy (10 Years) 1977 Pneumococcal Vaccine: Pediatrics (0 to 5 Years) and At-Risk Patients (6 to 64 Years) (1 of 2 - PCV) 12/17/1983 Diabetes: Retinopathy Eye Exam 12/17/1995 DTaP, Tdap and Td Vaccines (1 - Tdap) 1996 Hepatitis B Vaccines (1 of 3 - 19+ 3-dose series) 1996 COVID-19 Vaccine (3 - season) 2023 05/12/2021, 07/18/2020 Influenza Adult (#1) 2024 PHQ-2 (Physician [place]) 04/17/2024 12/11/2023 Hemoglobin A1C 06/06/2024 12/05/2023, 080 11/2022, 10/08/2021 Kidney Health Evaluation 12/04/2024 12/05/2023 Lipid Panel 12/04/2024 12/05/2023, 080 11/2022, 10/08/2021 Annual Physical 12/10/2024 12/11/2023, 06/24/2021 PHQ-2 (Physician [place]) 12/10/2024 12/11/2023 Mammogram Screening 03/01/2026 03/01/2024, 01/30/2024, 01/30/2024, Additional history exists Hepatitis C Completed 10/08/2021 Meningococcal B Vaccine Aged Out No l onger eligible based on patient's age to complete this topic Meningococcal Vaccine Aged Out No cecily jonathan eligible based on patient's age to complete this topic RSV Immunizations Under 20 Months Aged Out No longer eligible based on patient's age to complete this topic Procedures Procedure Name Priority Date/Time Associated Diagnosis Comments MG DIAGNOSTIC RT DIGI Routine 03/01/2024 7:24 AM JUNIOR ARCHITECT Breast mass, right US GD BREAST BX RT BIRAD Routine 03/01/2024 7:16 AM JUNIOR ARCHITECT Breast mass, right PATHOLOGY Routine 03/01/2024 12:00 AM JUNIOR ARCHITECT Breast mass, right LIPID PANEL Routine 12/05/2023 9:24 AM CDT Hyperlipidemia, unspecified hyperlipidemia type HEMOGLOBIN, GLYCOSYLATED Routine 12/05/2023 9:24 AM CDT Type 2 diabetes mellitus without complication, without long-term current use of insulin (CMS/HCC HHS/HCC) HEPATITIS C ANTIBODY W/RFX TO HCV RNA Routine 10/08/2021 12:59 PM CDT from Last 3 Months or Most Recently Relevant to Health Maintenance Results * MG DIAGNOSTIC RT DIGI (03/01/2024 7:24 AM JUNIOR ARCHITECT) Anatomical Region Laterality Modality Breast Right Mammography 03/01/2024 7:56 AM JUNIOR ARCHITECT Impressions 03/01/2024 8:01 AM JUNIOR ARCHITECT IMPRESSION: Ultrasound-guided right breast biopsy performed by Dr. Bob. Postbiopsy changes as above. Ordered By: LORI BOB Interpreted By: Zack Fortune, 03/01/2024 7:56 AM Narrative 03/01/2024 8:01 AM JUNIOR ARCHITECT [address] [address] EXAMINATION: MG DIAGNOSTIC RT DIGI, US GD BREAST BX RT BIRAD [id number] INDICATIONS: Unspecified lump in the right breast, unspecified quadrant COMPARISON: 09/29/2022 and 01/30/2024 TECHNIQUE: Targeted grayscale ultrasound imaging of the right with ultrasound guidance for transcutaneous biopsy performed by Dr. Bob. Digital full field post procedural CC and true lateral views of the right breast. FINDINGS: Preprocedural targeted sonogram of the right breast demonstrates the target 10 mm circumscribed ovoid hypoechoic peripherally calcified complicated cyst within the subdermal 9:00 axis 3 cm from the nipple.. Multiple procedural images demonstrate transcutaneous biopsy with apparent intralesional tip positioning and clip placement. No appreciable postprocedural hematoma. A radiologist was not present for this procedure. Please see dedicated procedure report for additional real-time findings and impression. Post biopsy mammography demonstrates postbiopsy changes and associated biopsy clip at the outer margin of the retroareolar breast within region of prior fat density oil cyst. Stable adjacent dystrophic calcifications and additional adjacent subdermal oil cysts. Postbiopsy clip subcutaneous emphysema within the deeper and more lateral subdermal breast. No evident postbiopsy hematoma. us Lori Bob MD MAMMO Final Result * US GD BREAST BX RT BIRAD (03/01/2024 7:16 AM JUNIOR ARCHITECT) Anatomical Region Laterality Modality Breast Right Ultrasound RIGHT BREAST STRUCTURE / Unknown 03/01/2024 7:56 AM JUNIOR ARCHITECT Impressions 03/01/2024 8:01 AM JUNIOR ARCHITECT IMPRESSION: Ultrasound-guided right breast biopsy performed by Dr. Bob. Postbiopsy changes as above. Ordered By: LORI BOB Interpreted By: Zack Fortune, 03/01/2024 7:56 AM Narrative 03/01/2024 8:01 AM JUNIOR ARCHITECT [place] [address] EXAMINATION: MG DIAGNOSTIC RT DIGI, US GD BREAST BX RT BIRAD [id number] INDICATIONS: Unspecified lump in the right breast, unspecified quadrant COMPARISON: 09/29/2022 and 01/30/2024 TECHNIQUE: Targeted grayscale ultrasound imaging of the right with ultrasound guidance for transcutaneous biopsy performed by Dr. Bob. Digital full field post procedural CC and true lateral views of the right breast. FINDINGS: Preprocedural targeted sonogram of the right breast demonstrates the target 10 mm circumscribed ovoid hypoechoic peripherally calcified complicated cyst within the subdermal 9:00 axis 3 cm from the nipple.. Multiple procedural images demonstrate transcutaneous biopsy with apparent intralesional tip positioning and clip placement. No appreciable postprocedural hematoma. A radiologist was not present for this procedure. Please see dedicated procedure report for additional real-time findings and impression. Post biopsy mammography demonstrates postbiopsy changes and associated biopsy clip at the outer margin of the retroareolar breast within region of prior fat density oil cyst. Stable adjacent dystrophic calcifications and additional adjacent subdermal oil cysts. Postbiopsy clip subcutaneous emphysema within the deeper and more lateral subdermal breast. No evident postbiopsy hematoma. us Lori Bob MD ULTRASOUND Final Result * Pathology (03/01/2024 12:00 AM JUNIOR ARCHITECT) PATHOLOGY [facility] Department of Laboratory Medicine [address] [place] [phone] , extension [phone] Pathology Report Addendum Surgical Pathology Report Name: JOHANNA ELIZONDO Specimen #: [id number] Age: 9 1975 (Age: 48) Location: [facility] Sex: F Procedure Date: 03/01/2024 Hospital #: [id number] Date Received: 03/01/2024 Date Reported: Provider: LORI BOB MD Source: Right breast, needle biopsies 9:00 Clinical History: Right breast mass. Gross Description: Received in formalin, labeled with a patient label and as right breast 9:00 are multiple 0.2 cm in diameter white-yellow tissue cores that are 1.5 x 1 x 0.2 cm in aggregate. The specimen is entirely submitted in cassette 1. Please note: The cold ischemia time for this specimen was less than one hour. It was placed in formalin at 0700 on 03/01/2024 for a total time in formalin of 59.5 hours. Gross examination (when applicable) was performed at [facility], [address] [place] [address]. This case was interpreted and signed out at [facility], [address] [place] [address]. FINAL DIAGNOSIS: Breast, right 9:00, biopsy: -Benign breast parenchyma with focally dense stromal fibrosis; see comment Diagnosis Comment: Review of the imaging report demonstrates a calcified cyst and adjacent calcifications. To evaluate the possibility of calcifications in this sample, the block is leveled to exhaustion; calcifications are not identified on the histologic sections. There is no evidence of malignancy in this sample. Immunohistochemical stains performed on block 1 demonstrate the following: Cam5.2/SMMHC/p63 triple stain: Highlights benign breast parenchyma IC: CEF Electronically Signed Out ALETHA LOMBARDI MD Addenda/Procedures Addendum Date Ordered: 03/06/2024 Status: Signed Out Date Complete: 03/06/2024 By: ALETHA FONTENOT Date Reported: 03/06/2024 Addendum Diagnosis {Not Entered} Addendum Comment All immunohistochemical and histochemical tests were developed by and performed at [facility], [address] [place] [address]. All tests reported here have not been cleared or approved by the U.S. Food and Drug Administration (FDA). This laboratory is regulated under CLIA as qualified to perform high-complexity testing. These tests are used for clinical purposes. They should not be regarded as investigational or for research. Positive and negative controls show appropriate reactivity. ALETHA LOMBARDI MD [facility] 03/01/2024 03/01/2024 12: 24 PM JUNIOR ARCHITECT Comment:Right breast, needle biopsies 9:00 Lori Bob MD PATHOLOGY/CYTOLOGY ORDERABLES Final Result Performing Organization Address City/[facility]/ZIP Co de Phone Number [facility] [address] [place] [address], [phone] * (ABNORMAL) HEMOGLOBIN, GLYCOSYLATED (12/05/2023 9:24 AM CDT) HGB A1C 6.4(H) 4.5 - 6.2 % 12/05/2023 3:39 PM CDT [facility] ESTIMATED AVG GLUCOSE 137(H) 74 - 106 MG/DL 12/05/2023 3:39 PM CDT [facility] 12/05/2023 9:24 AM CDT Viridiana Zaidi NP LABORATORY Final Res ult Performing Organization Address [facility] Co de Phone Number [facility] [address] [place] [address], * LIPID PANEL (12/05/2023 9:24 AM CDT) CHOLESTEROL 166 <200 MG/DL 12/05/2023 3:34 PM CDT [facility] TRIGLYCERIDES 111 <150 MG/DL 12/05/2023 3:34 PM CDT [facility] HDL 67 >40 MG/DL 12/05/2023 3:34 PM CDT [facility] LDL-C 77 <100 MG/DL 12/05/2023 3:34 PM CDT [facility] VLDL CALCULATION 22 5 - 28 MG/DL 12/05/2023 3:34 PM CDT [facility] CHOL/HDL RATIO 2.5 0.0 - 4.0 12/05/2023 3:34 PM CDT [facility] LDL/HDL 1.1 0.41 - 2.13 12/05/2023 3:34 PM CDT [facility] NON HDL CHOLESTEROL 99 <140 MG/DL 12/05/2023 3:34 PM CDT [facility] 12/05/2023 9:24 AM CDT Viridiana Zaidi NP LABORATORY Final Res ult Performing Organization Address [facility] Co de Phone Number [facility] [address] [place] [address], * HEPATITIS C ANTIBODY W/RFX TO HCV RNA (10/08/2021 12:59 PM CDT) HEPATITIS C AB NON-REACTI VE NON-REACT PHILIP [facility] SIGNAL TO CUTOFF 0.06 <[address] [facility] Comment: HCV antibody was non-reactive. There is no laboratory evidence of HCV infection. In most cases, no further action is required. However, if recent HCV exposure is suspected, a test for HCV RNA (test code 90210) is suggested. For additional information please refer to http://education.HeartThis.Moer[employer] Matrix/faq/ZOZ98x7 (This link is being provided for informational/ educational purposes only.) 10/08/2021 12:5 9 PM CDT 10/08/2021 1:00 PM CDT Narrative [facility] - 10/14/2021 5:13 PM CDT FASTING:YES FASTING: YES Viridiana Zaidi NP LABORATORY Final Res ult [facility] [address] [address] [id number] from Last 3 Months or Most Recently Relevant to Health Maintenance Additional Health Concerns Infection Onset Date Last Indicated MRSA 11/21/2016 11/21/2016 Insurance [facility] Care Teams Art Objects Repairer Relationship Specialty Start Date End Date Viridiana Zadii NP [address] [place] [address] PCP - General NURSE PRACTITIONER 06/17/21
--- OUTSIDE RECORDS SUMMARY | 2024-05-23 00:47 | XMS_ITS | Encounter Summary ---
Author Organization [facility] Address [facility] [place] [address] Care Team Providers Care Jeweler Apprentice Name Role Phone Viridiana Zaidi NP Primary Care Provider [phone] Encounter Details Date Type Department Care Team (Late st Contact Info) Description 10/12/2022 [employer] Message [facility] [address] [place], [place] [address] [facility] Provider Air Quality Message Social History Tobacco Use Types Packs/Day Years Used Date Smoking Tobacco: Never Passive Smoke Exposure: Never Smokeless Tobacco: Never Comments:The provider can pr ovide you with more information about quitting. Alcohol Use Standard Drinks/Week Comments No 0 (1 standard drink = 0.6 oz pur e alcohol) PHQ-2 Answer Date Recorded PHQ-2 Score - If the patient scores above 3, please move on to questions 3-9 0 03/08/2022 Comments No Sex and Gender Information Value Date Recorded Sex Assigned at Not on file Legal Sex Female 1:46 AM CDT Gender Identity Not on file Sexual Orientation Not on file documented as of this encounter Plan of Treatment Upcoming Encounters Date Type Department Care Team (Late st Contact Info) Description 07/02/2024 12:30 PM CDT App[facility]ment [facility] [address] [place], [place] [phone] Conner Bob MD [facility] [address] [address] 07/02/2024 1:00 PM CDT Appointment [facility] [address] [place] [address] Conner Bob MD [address] [facility] [address] [place] [address] documented as of this encounter Visit Diagnoses Not on filedocumented in this encounter Additional Health Concerns Infection Onset Date Last Indicated Resolved Time MRSA 11/21/2016 11/21/2016 documented as of this encounter Care Teams Jeweler Apprentice Relationship Specialty Start Date End Date Viridiana Zaidi NP [address] [place] [address] PCP - General NURSE PRACTITIONER 06/17/21 documented as of this encounter
--- OUTSIDE RECORDS SUMMARY | 2024-05-23 00:47 | XMS_ITS | Encounter Summary ---
Author Organization [facility] Address Formerly [facility], [facility] [place] [address] Care Team Providers Care Home Appliances Mechanic Name Role Phone Viridiana Zaidi NP Primary Care Provider [phone] Encounter Details Date Type Department Care Team (Late st Contact Info) Description 12/01/2022 Qualvu Message Enc [facility] Family Medicine - [place] [address] [facility] [address] [place] [id number] Arnulfo [facility] Provider 1 week f/u Social History Tobacco Use Types Packs/Day Years [...] Info) Description 07/02/2024 12:30 PM CDT Appointment [facility] [place], [place] [id number] Conner Bob MD [facility] [address] [phone] 07/02/2024 1:00 PM CDT Appointment [facility] [address] [facility] [place] [address] Conner Bob MD [address] [facility] [address] [place], [place] [address] documented as of this encounter Visit Diagnoses Not on filedocumented in this encounter Additional Health Concerns Infection Onset Date Last Indicated Resolved Time MRSA 11/21/2016 11/21/2016 documented as of this encounter Care Teams Home Appliances Mechanic Relationship Specialty Start Date End Date Viridiana Zaidi NP [address] [place] [address] PCP - General NURSE PRACTITIONER 06/17/21 documented as of this encounter
--- OUTSIDE RECORDS SUMMARY | 2024-05-23 00:47 | XMS_ITS | Encounter Summary ---
Author Organization [facility] Address [address] [place] [address] Care Team Providers Care [employer] Advisor Name Role Phone Carson Benavides MD Primary Care Provider [phone] Viridiana aZidi NP Primary Care Provider [phone] Encounter Details Date Type Department Care Team (Late Contact Info) Description 09/22/2018 Abstract [facility] CONVERSION [address] [place] [address] , Generic Conversion, Social History Tobacco Use Types Packs/Day Years Used Date Smoking Tobacco: Never Smokeless Tobacco: Never Alcohol Use Standard Drinks/Week Comments No 0 (1 standard drink = 0.6 oz pur e alcohol) Comments Unknown Sex and Gender Information Value Date Recorded Sex Assigned at Not on file Legal Sex Female 1:46 AM CDT Gender Identity Not on file Sexual Orientation Not on file documented as of this encounter Plan of Treatment Upcoming Encounters Date Type Department Care Team (Late Contact Info) Description 07/02/2024 12:30 PM CDT Appointment [facility] [place], [place] [id number] Conner Bob MD [address] [place] [phone] 07/02/2024 1:00 PM CDT Appointment [facility] [place], [place] [phone] Conner Bob MD [address] [facility] [address] [place], [place] [address] documented as of this encounter Visit Diagnoses Not on filedocumented in this encounter Additional Health Concerns Infection Onset Date Last Indicated Resolved Time 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
--- OUTSIDE RECORDS SUMMARY | 2024-05-23 00:47 | XMS_ITS | Clinical Summary ---
Author Organization [facility] Yessenia gilmore Shayy Address [address] [place] [address] Care Team Providers Care Insurance Premium Auditor Name Role Phone Unavailable Primary Care Provider Unavailabl e Allergies No known active allergies Medications metFORMIN (GLUCOPHAGE) 500 mg tablet metformin 500 mg tablet TAKE 1 TABLET BY MOUTH TWICE DAILY Active metoprolol tartrate (LOPRESSOR) 100 mg tablet 2 times daily. 02/12/20 16 Active hydroCHLOROth iazide 25 mg tablet hydrochlorothiazide 25 mg tablet TAKE 1 TABLET BY MOUTH DAILY Active amLODIPine (Norvasc) 5 mg tablet every 24 hours. Acti ve atorvastatin (LIPITOR) 10 mg tablet 20 mg. 09/03/19 16 Active ferrous sulfate 325 mg (65 mg iron) tablet Take 325 mg by mouth 2 times daily. Active Active Problems Problem Noted Date Diagnosed Date Lymphocytosis 07/10/2019 Chronic anemia 07/10/2019 Encounters Date Type Department Care Team Description 04/02/2024 4:30 PM SIDE LASTER TACK Telephone Check Up [facility] - [place] [address] [place] [address] Nils De Oliveira MD Chronic anemia (Primary Dx); Lymphocytosis 03/26/2024 External Device Data ST[facility] ABSTRACTION Provider, Abstract 03/26/2024 Orders Only [facility] - [place] [address] [place] [address] Nils De Oliveira MD 03/20/2024 Orders Only [facility] - [place] [address] [place] [address] Nils De Oliveira MD 03/19/2024 1:30 PM SIDE LASTER TACK Office Visit [facility] [address] [place] [address] Nils De Oliveira MD Chronic anemia (Primary Dx) from Last 3 Months Family History Medical History Relation Name Comments No Known Problems Brother 1 No Known Problems Brother 2 No Known Problems Child 1 No Known Problems Child 2 No Known Problems Child 3 No Known Problems Child 4 No Known Problems Father Colon Cancer Mother Diabetes Mother Hypertension Mother No Known Problems Sister Relation Name Status Comments Brother 1 Alive Brother 2 Alive Child 1 Alive Child 2 Alive Child 3 Alive Child 4 Alive Father Mother Alive Sister Alive Social History Tobacco Use Types Packs/Day Years Used Date Smoking Tobacco: Never Smokeless Tobacco: Never Tobacco Cessation:Counseling Given: Not Answered Alcohol Use Standard Drinks/Week Comments Yes 0 (1 standard drink = 0.6 oz pur e alcohol) Comments Unknown Sex and Gender Information Value Date Recorded Sex Assigned at Not on file Legal Sex Female 11:45 PM CDT Gender Identity Not on file Sexual Orientation Not on file Last Filed Vital Signs Vital Sign Reading Time Taken Comments Blood Pressure 133/92 03/19/2024 1:15 PM SIDE LASTER TACK Pulse 83 03/19/2024 1:13 PM SIDE LASTER TACK Temperature 36.8 C (98.2 F) 03/19/2024 1:13 PM SIDE LASTER TACK Respiratory Rate 16 03/19/2024 1:13 PM SIDE LASTER TACK Oxygen Saturation 97% 03/19/2024 1:13 PM SIDE LASTER TACK Inhaled Oxygen Concentration - - Weight 89.3 kg (196 lb 12.8 oz) 03/19/2024 1:13 PM SIDE LASTER TACK Height 157.5 cm (5' 2 ) 03/19/2024 1:13 PM SIDE LASTER TACK Body Mass Index 36 03/19/2024 1:13 PM SIDE LASTER TACK Plan of Treatment Upcoming Encounters Date Type Department Care Team (Late st Contact Info) Description 07/05/2024 12:15 PM CDT Office Visit [facility] [address] [facility] [address] [place] [address] Nils De Oliveira MD [address] [facility] [address] [place] [address] Health Maintenance Due Date Last Done Comments DIABETES ANNUAL FOOT EXAM 12/17/1995 DIABETES ANNUAL RETINAL EXAM 12/17/1995 DIABETES MICROALBUMIN ANNUAL SCREEN 12/17/1995 LDL CHOLESTEROL ANNUAL 12/17/1995 DTAP/TDAP/TD VACCINES (1 - Tdap) 1996 HEPATITIS B VACCINES (1 of 3 - 19+ 3-dose series) 1996 COLORECTAL SCREENING 2022 Colorectal Cancer Screening 2022 FIT-DNA Q 3 years 2022 FIT/FOBT Q 1 year 2022 Flex Sig/CT Colonography Q 5 years 2022 INFLUENZA VACCINE (#1) 2023 COVID-19 Vaccine (2023-2 5 season) 2023 05/12/2021, 07/18/2020 CERVICAL CANCER SCREENING 01/15/2024 01/14/2021 Preventative Visit- Commercial 04/17/2024 12/11/2023, 06/24/2021 DIABETES HBA1C Q 6 MONTHS 06/06/2024 12/05/2023 BREAST CANCER SCREENING 03/01/2025 03/01/2024 HPV VACCINES Aged Out No longer eligi ble based on patient's age to complete this topic Procedures Procedure Name Priority Date/Time Associated Diagnosis Comments SICKLE CELL SCREEN W/ REFLEX TO HGB ID Routine 03/19/2024 2:53 PM SIDE LASTER TACK TRANSFERRIN RECEPTOR TFR SOLUBLE Routine 03/19/2024 2:36 PM SIDE LASTER TACK COMPREHENSIVE METABOLIC PANEL Routine 03/19/2024 1:55 PM SIDE LASTER TACK from Last 3 Months Results * SICKLE CELL SCREEN W/ REFLEX TO HGB ID (03/19/2024 2:53 PM SIDE LASTER TACK) Blood us Provider Scanning HEMATOLOGY ORDERABLES COM Ann l Result * TRANSFERRIN RECEPTOR TFR SOLUBLE (03/19/2024 2:36 PM SIDE LASTER TACK) Blood us Nils De Oliveira MD CHEMISTRY ORDERABLES Final Resu lt * COMPREHENSIVE METABOLIC PANEL (03/19/2024 1:55 PM SIDE LASTER TACK) Blood us Nils De Oliveira MD CHEMISTRY ORDERABLES Final Resu lt from Last 3 Months Insurance [facility] [id number] [facility] Address: [facility] [address] [place] [address]
--- OUTSIDE RECORDS SUMMARY | 2024-05-23 00:47 | XMS_ITS | Encounter Summary ---
Author Organization [facility] Address [address] [place] [address] Care Team Providers Care Claim Technician Name Role Phone Viridiana Zaidi NP Primary Care Provider [phone] Encounter Details Date Type Department Care Team (Late Contact Info) Description 12/12/[address] Message Enc [facility] Family Medicine - [place] [address] [facility] [address] [place] [phone] Viridiana Zaidi, EDITOR MAP [address] [place] [address] Anemia Social History Tobacco Use Types Packs/Day Years [...] Info) Description 07/02/2024 12:30 PM CDT Appointment [facility] [place], [place] [phone] Conner Bob MD [address] [place] [address] 07/02/2024 1:00 PM CDT Appointment [facility] [address] [facility] [place] [address] Conner Bob MD [address] [facility] [address] [place], [place] [address] documented as of this encounter Visit Diagnoses Not on filedocumented in this encounter Additional Health Concerns Infection Onset Date Last Indicated Resolved Time MRSA 11/21/2016 11/21/2016 documented as of this encounter Care Teams Claim Technician Relationship Specialty Start Date End Date Viridiana Zaidi NP [address] [place] [address] PCP - General NURSE PRACTITIONER 06/17/21 documented as of this encounter
--- OUTSIDE RECORDS SUMMARY | 2024-05-23 00:47 | XMS_ITS | Encounter Summary ---
Author Organization [facility] Address [facility] access hospital[address] [place] [address] Care Team Providers Care Railway Switch Operator Name Role Phone Viridiana Zaidi NP Primary Care Provider [phone] Encounter Details Date Type Department Care Team (Late st Contact Info) Description 01/04/2023 [employer] Message Enc [facility] Medical [facility] Family Medicine - [place] [address] [facility] [address] [place] [phone] Arnulfo, [facility] Provider Reply from Viridiana Social History Tobacco Use Types Packs/Day Years Used Date Smoking Tobacco: Never Passive Smoke Exposure: Never Smokeless Tobacco: Never Comments:The provider can pr ovide you with more information about quitting. Alcohol Use Standard Drinks/Week Comments No 0 (1 standard drink = 0.6 oz pur e alcohol) PHQ-2 Answer Date Recorded Patient Health Questionnaire-2 Score 0 12/28/2022 Comments No Sex and Gender Information Value Date Recorded Sex Assigned at Not on file Legal Sex Female 1:46 AM CDT Gender Identity Not on file Sexual Orientation Not on file documented as of this encounter Plan of Treatment Upcoming Encounters Date Type Department Care Team (Late st Contact Info) Description 07/02/2024 12:[address] [facility] [place] [place] [address] Conner Bob MD [address] [phone] 07/02/2024 1:00 PM CDT Appointment [facility] [address] [facility] [place] [address] Conner Bob MD [address] [facility] [address] [place] [address] documented as of this encounter Visit Diagnoses Not on filedocumented in this encounter Additional Health Concerns Infection Onset Date Last Indicated Resolved Time MRSA 11/21/2016 11/21/2016 documented as of this encounter Care Teams Railway Switch Operator Relationship Specialty Start Date End Date Viridiana Zaidi NP [address] [place] [address] PCP - General NURSE PRACTITIONER 06/17/21 documented as of this encounter
[2024-05-23 08:17] VITALS: BP 144/78; PULSE 77; RESP 16; TEMP 36.1; O2SAT 100; BMI 35.2
[2024-05-23] MEDS: LACTATED RINGERS 1,000 ML 150 ML IV CONT (08:25)
[2024-05-23 08:28] LABS: Glucose Point of Care 128 mg/dl (65-105)
--- NOTE | 2024-05-23 08:56 | PM.HPGS ---
History of Present Illness History of Present Illness Consent: Risks, benefits, and alternatives have been discussed and questions answered. Patient agrees to proceed with procedure. Chief complaint: screening malignant neoplasm colon Narrative: Johanna Dominguez is a 48 year old female here for first screening colonoscopy Review of Systems Review of Systems: All systems reviewed & are unremarkable except as noted in HPI and below PMFSH Past Medical History Medical History (Updated 05/23/24 @ 08:58 by Mir Werner MD) Colon cancer screening Diabetes Genital herpes Hypovitaminosis D Lymphocytosis High cholesterol Vision abnormalities Bakers cyst Allergic rhinitis Knee pain Atypical chest pain Asthma Essential hypertension IFG (impaired fasting glucose) Hepatic steatosis GERD (gastroesophageal reflux disease) Pre-diabetes HLD (hyperlipidemia) Hypertension Surgical History Surgical History H/O tubal ligation History of reduction mammoplasty H/O: hysterectomy Family History Family History Mother Hypertension Diabetes mellitus Family history of alcoholism Family history of Alzheimer's disease Social History Social History Smoking status: Never smoker Second hand tobacco smoke exposure: No Alcohol intake: never Alcohol use details: Occasional Substance use: never Substance use type: does not use Lack of Transportation: No Lack of Food: Never True Current Housing: I Have Housing Concerned About Future Housing: No Difficulty Paying Gas/Electric Bills: No Difficulty Paying for Meds: No Currently Unemployed: No Education: Bachelor's Degree Difficulty w/ Childcare or Family Care: No Gender identity (if verbalized by the patient): Female Sexual Orientation (if Verbalized by the Patient): Straight or Heterosexual Spiritual care concerns: No Meds Home Medications and Allergies Home Medications ?Medication ?Instructions ?Recorded ?Confirmed ?Type atorvastatin 20 mg tablet 20 mg PO DAILY #90 tabs 12/24/20 05/23/24 Rx metformin 500 mg tablet 500 mg PO BID #120 tabs 12/24/20 05/23/24 Rx amlodipine 10 mg tablet See Rx Instructions .Route 06/17/21 05/23/24 Rx .COMPLEX #90 tabs metoprolol tartrate 100 mg tablet See Rx Instructions .Route 06/17/21 05/23/24 Rx .COMPLEX #180 tabs hydrochlorothiazide 12.5 mg capsule 12.5 mg PO DAILY 01/08/23 05/08/24 History gabapentin 100 mg capsule 100 mg PO DIRECTED 04/14/23 05/08/24 History valacyclovir 500 mg tablet 500 mg PO DIRECTED 04/14/23 05/08/24 History ondansetron 4 mg disintegrating 4 mg PO Q8H PRN nausea and 07/04/23 05/08/24 Rx tablet vomiting #10 tabs sodium chloride 3 % nasal spray 2 spray intranasal TID #213 grams 11/05/23 05/08/24 Rx aerosol (Saline Nasal Mist) Allergies Allergy/AdvReac Type Severity Reaction Status Date / Time No Known Allergies Allergy Verified 05/23/24 08:15 Vital Signs Vital Signs - 24 hr 05/23/24 08:17 Temperature 97 F L Pulse Rate 77 Respiratory Rate 16 Blood Pressure 144/78 H Pulse Oximetry 100 Oxygen Delivery Room Air Exam Const: General: comfortable and no acute distress HENMT: Face/Nose/Sinus: Normal nares present Eyes: General: appearance normal, both eyes and all related structures Neck: Neck: no JVD Resp: Auscultation: clear to auscultation bilaterally Cardio: Rate: regular rate Rhythm: regular rhythm GI: Inspection: non-distended GI Palp: Yes Soft to palpation Skin: General skin exam: normal color Neuro: General: gait normal Speech: normal speech Extrem: General: normal to inspection Psych: Mental Status: mental status grossly normal Assessment and Plan Assessment and plan (1) Colon cancer screening: Code(s): Z12.11 - Encounter for screening for malignant neoplasm of colon Status: Acute Assessment and Plan: colonoscopy
--- NOTE | 2024-05-23 08:57 | P.PNAN_ITS ---
Anes - Initial Pre Proc Eval Procedure: Operation Date: 05/23/24 09:30 Proposed Procedures p Screening Colonoscopy - Mir Werner MD Date/Time: 05/23/24 08:57 Surgeon: Mir Werner MD Pre Op Diagnosis: screening malignant neoplasm colon Patient Data Age: 48 Gender: F Height: 1.57 m Weight: 87.3 kg Last Vital Signs Temp 36.1 C L 05/23/24 08:17 Pulse 77 05/23/24 08:17 Resp 16 05/23/24 08:17 BP 144/78 H 05/23/24 08:17 Pulse Ox 100 05/23/24 08:17 O2 Del Method Room Air 05/23/24 08:17 Allergies Allergy/AdvReac Type Severity Reaction Status Date / Time No Known Allergies Allergy Verified 05/23/24 08:15 Home Medications ?Medication ?Instructions ?Recorded ?Confirmed ?Type atorvastatin 20 mg tablet 20 mg PO DAILY #90 tabs 12/24/20 05/23/24 Rx metformin 500 mg tablet 500 mg PO BID #120 tabs 12/24/20 05/23/24 Rx amlodipine 10 mg tablet See Rx Instructions .Route 06/17/21 05/23/24 Rx .COMPLEX #90 tabs metoprolol tartrate 100 mg tablet See Rx Instructions .Route 06/17/21 05/23/24 Rx .COMPLEX #180 tabs hydrochlorothiazide 12.5 mg capsule 12.5 mg PO DAILY 01/08/23 05/08/24 History gabapentin 100 mg capsule 100 mg PO DIRECTED 04/14/23 05/08/24 History valacyclovir 500 mg tablet 500 mg PO DIRECTED 04/14/23 05/08/24 History ondansetron 4 mg disintegrating 4 mg PO Q8H PRN nausea and 07/04/23 05/08/24 Rx tablet vomiting #10 tabs sodium chloride 3 % nasal spray 2 spray intranasal TID #213 grams 11/05/23 05/08/24 Rx aerosol (Saline Nasal Mist) Laboratory Tests 05/23/24 08:21 POC Capillary Glucose 128 H mg/dl (65-105) Patient hx anesthesia problems: none Family hx anesthesia problems: none Results Review: All pre-operative results and documents have been reviewed as part of the pre- operative evaluation. [facility] Past Medical History Medical History Diabetes Genital herpes Hypovitaminosis D Lymphocytosis High cholesterol Vision abnormalities Bakers cyst Allergic rhinitis Knee pain Atypical chest pain Asthma Essential hypertension IFG (impaired fasting glucose) Hepatic steatosis GERD (gastroesophageal reflux disease) Pre-diabetes HLD (hyperlipidemia) Hypertension Surgical History Surgical History H/O tubal ligation History of reduction mammoplasty H/O: hysterectomy Family History Family History Mother Hypertension Diabetes mellitus Family history of alcoholism Family history of Alzheimer's disease Social History Social History Smoking status: Never smoker Second hand tobacco smoke exposure: No Alcohol intake: never Alcohol use details: Occasional Substance use: never Substance use type: does not use Lack of Transportation: No Lack of Food: Never True Current Housing: I Have Housing Concerned About Future Housing: No Difficulty Paying Gas/Electric Bills: No Difficulty Paying for Meds: No Currently Unemployed: No Education: Bachelor's Degree Difficulty w/ Childcare or Family Care: No Gender identity (if verbalized by the patient): Female Sexual Orientation (if Verbalized by the Patient): Straight or Heterosexual Spiritual care concerns: No Anes - Eval Final PreProcedure Day of Procedure 05/23/24 08:57 Patient weight: obese Heart: regular rate and rhythm Lungs: clear to auscultation Airway: Mallampati scale class II Neurological: alert and oriented Last oral intake: >/= 8 hours ASA classification: III Emergent: no Anesthetic plan: proceed Anesthesia type and monitoring: general GIVS and standard monitoring Results Review: All pre-operative results and documents have been reviewed as part of the pre- operative evaluation. Informed Consent: The patient's anesthetic plan and its attendant risks and benefits were discussed with the patient/family/POA. Questions were solicited and answers provided to the satisfaction of the patient/family/POA.
[2024-05-23 09:12] VITALS: BP 131/83; PULSE 86; RESP 25; O2SAT 98
[2024-05-23 09:22] VITALS: BP 119/94; PULSE 92; RESP 24; O2SAT 100
[2024-05-23 09:32] VITALS: BP 129/83; PULSE 76; RESP 16; O2SAT 100
== END 2024-05-23 09:49 | disposition home or self-care (01) ==
PROVIDERS: PCP Nurse Practitioner; Visit Provider Internal Medicine Gastroenterology
PROC: 0DJD8ZZ Inspection of Lower Intestinal Tract, Via Natural or Artificial Opening Endoscopic (ICD-10-PCS; CPT 45378; principal; 2024-05-23 09:30)
DX: Z12.11 Encounter for screening for malignant neoplasm of colon (principal); I10 Essential (primary) hypertension; E11.9 Type 2 diabetes mellitus without complications; E55.9 Vitamin D deficiency, unspecified; E78.00 Pure hypercholesterolemia, unspecified; J45.909 Unspecified asthma, uncomplicated; D72.820 Lymphocytosis (symptomatic); E66.9 Obesity, unspecified; Z68.35 Body mass index [BMI] 35.0-35.9, adult; Z79.84 Long term (current) use of oral hypoglycemic drugs; Z98.890 Other specified postprocedural states; Z98.84 Bariatric surgery status
CPT/HCPCS: 45378; 82948; J2704; J7120

== ENCOUNTER 2024-05-25 11:49 | Emergency (ER) | payer OTHER, SELFPAY ==
[2024-05-25 12:14] VITALS: BP 126/87; PULSE 87; RESP 16; TEMP 36.2; O2SAT 100
--- NOTE | 2024-05-25 12:22 | ED.ABDPAIN ---
HPI - Abdominal Pain General Chief Complaint: Abdominal Pain Stated Complaint: LOWER L ABD PAIN Time Seen by Provider: 05/25/24 12:20 Source: patient Mode of arrival: ambulatory Limitations: no limitations History of Present Illness HPI narrative: Johanna is a 48-year-old female patient presenting to the clinic today with complaints of left lower abdominal pain x1 day. She reports symptoms started around 4:00 p.m. yesterday evening. States the pain is 9/10 currently. States his an achy pain in the left lower quadrant. Pain is worse when trying to have a bowel movement and standing up straight. States her stool was a little loose yesterday but just had a colonoscopy 2 days ago. Denies feeling bloated. Denies any fevers, chills, body aches. Denies any urinary symptoms. Related Data Home Medications ?Medication ?Instructions ?Recorded ?Confirmed ?Last Taken ?Type hydrochlorothiazide 12.5 mg capsule 12.5 mg PO DAILY 01/08/23 05/08/24 Unknown History gabapentin 100 mg capsule 100 mg PO DIRECTED 04/14/23 05/08/24 Unknown History valacyclovir 500 mg tablet 500 mg PO DIRECTED 04/14/23 05/08/24 Unknown History Allergies Allergy/AdvReac Type Severity Reaction Status Date / Time No Known Allergies Allergy Verified 05/25/24 12:12 Review of Systems Review of Systems: Pertinent positives per HPI. Patient denies any fever, chills, rash, headache, visual changes, dizziness, cough, runny nose, sore throat, shortness of breath, chest pain, palpitations, nausea, vomiting, diarrhea, constipation, or any urinary issues. [facility] Past Medical History Medical History Colon cancer screening Diabetes Genital herpes Hypovitaminosis D Lymphocytosis High cholesterol Vision abnormalities Bakers cyst Allergic rhinitis Knee pain Atypical chest pain Asthma Essential hypertension IFG (impaired fasting glucose) Hepatic steatosis GERD (gastroesophageal reflux disease) Pre-diabetes HLD (hyperlipidemia) Hypertension Surgical History Surgical History H/O tubal ligation History of reduction mammoplasty H/O: hysterectomy Family History Family History Mother Hypertension Diabetes mellitus Family history of alcoholism Family history of Alzheimer's disease Social History Social History Smoking status: Never smoker Second hand tobacco smoke exposure: No Alcohol intake: never Alcohol use details: Occasional Substance use: never Substance use type: does not use Lack of Transportation: No Lack of Food: Never True Current Housing: I Have Housing Concerned About Future Housing: No Difficulty Paying Gas/Electric Bills: No Difficulty Paying for Meds: No Currently Unemployed: No Education: Bachelor's Degree Difficulty w/ Childcare or Family Care: No Living arrangements: with family Gender identity (if verbalized by the patient): Female Sexual Orientation (if Verbalized by the Patient): Straight or Heterosexual Spiritual care concerns: No Comments At the time of my signature, I reviewed and agree with the nursing past medical, surgical, social, and family history. There is no relevant family history pertinent to the patient complaint. Exam Narrative: General: Well-developed, well nourished, in no apparent distress. Head: Normocephalic, atraumatic. Cardio: Regular rate and rhythm, s1 and s2 normal, no murmur appreciated. Resp: Clear to auscultation bilaterally, no rhonchi, rales, wheezing or rubs. Abdomen: Soft, pliable, bowel sounds present in all quadrants, left lower quadrant tender to palpation, no organomegly, no CVAT tenderness. Course Course Emergency Course: Portions of this record may have been created with voice recognition software. Level of Care: Express Care Visit Vital Signs Vital signs: Vital Signs Temperature 36.2 C L 05/25/24 12:14 Pulse Rate 87 05/25/24 12:14 Respiratory Rate 16 05/25/24 12:14 Blood Pressure 126/87 05/25/24 12:14 Pulse Oximetry 100 05/25/24 12:14 Temperature 36.2 C L 05/25/24 12:14 Pulse Rate 87 05/25/24 12:14 Respiratory Rate 16 05/25/24 12:14 Blood Pressure 126/87 05/25/24 12:14 Pulse Oximetry 100 05/25/24 12:14 Vital signs reviewed Transfer Transfered to: [place] Transportation: Other (private car) Transfer rationale: Left lower quadrant abdominal pain Accepting physician: Dr. Espinoza Transfer comments: private car MDM - Abdominal Pain MDM Narrative Medical decision making narrative: At the time of visit patient is resting on the exam table. Patient appears to be nontoxic. Plan: Patient had colonoscopy 2 days ago and the exam was negative for any sign of infection, polyps, or diverticulosis. Is having left lower quadrant abdominal pain. Recommend transfer to the ER since she just had a colonoscopy 2 days ago to rule out perforation/colitis. Patient would like to go to [facility] for evaluation. Discussed patient's case with Dr. Espinoza and report was given for continuity of care and he accepts patient for transfer. Differential Diagnosis Differential diagnosis: Likely abdominal pain, acute appendicitis, calculus of kidney, constipation, diverticulitis, endometriosis, gastroenteritis, pancreatitis and small bowel obstruction Discharge Plan Discharge Clinical Impression: LLQ abdominal pain Patient Disposition: Acute Care Hospital Condition: Stable Patient Language: Indonesian Prescriptions: No Action valacyclovir 500 mg tablet 500 mg PO DIRECTED gabapentin 100 mg capsule 100 mg PO DIRECTED hydrochlorothiazide 12.5 mg capsule 12.5 mg PO DAILY Saline Nasal Mist 3 % aerosol,spray 2 spray intranasal TID Qty: 213 0RF ondansetron 4 mg tablet,disintegrating 4 mg PO Q8H PRN (Reason: nausea and vomiting) Qty: 10 0RF atorvastatin 20 mg tablet 20 mg PO DAILY Qty: 90 1RF metformin 500 mg tablet 500 mg PO BID Qty: 120 1RF amlodipine 10 mg tablet See Rx Instructions .ROUTE .COMPLEX Qty: 90 1RF Dose Instruction: TAKE 1 TABLET BY MOUTH DAILY Rx Instructions: TAKE 1 TABLET BY MOUTH DAILY metoprolol tartrate 100 mg tablet See Rx Instructions .ROUTE .COMPLEX Qty: 180 1RF Dose Instruction: TAKE 1 TABLET BY MOUTH TWICE DAILY Rx Instructions: TAKE 1 TABLET BY MOUTH TWICE DAILY Follow-up/Referrals: Dyan,MARC Montgomery [Primary Care Provider] - Time of Disposition: 12:23 Quality NIHSS Nursing Documentation ED NIHSS nursing documentation: reviewed/agree
== END 2024-05-25 12:25 | disposition short-term general hospital (02) ==
PROVIDERS: Emergency Provider Nurse Practitioner Family; PCP Nurse Practitioner
DX: R10.32 Left lower quadrant pain (principal); E11.9 Type 2 diabetes mellitus without complications; Z79.84 Long term (current) use of oral hypoglycemic drugs; E78.00 Pure hypercholesterolemia, unspecified; J45.909 Unspecified asthma, uncomplicated; I10 Essential (primary) hypertension; K21.9 Gastro-esophageal reflux disease without esophagitis; E78.5 Hyperlipidemia, unspecified; K76.0 Fatty (change of) liver, not elsewhere classified
CPT/HCPCS: 99212; G0463

== ENCOUNTER 2024-05-25 12:44 | Emergency (ER) | payer OTHER, SELFPAY ==
--- NOTE | ~2024-05-25 | CT_ITS ---
EXAMINATION: CT abdomen pelvis w con DATE: 05/25/2024 14:19 INDICATION: llq pain TECHNIQUE: Computed tomography (CT) of the abdomen and pelvis was performed with 100 mL Omnipaque-350 intravenous contrast. Automated exposure control and iterative reconstruction technique were employe d. The dose-length product was 644.84 mGy-cm. COMPARISON: 07/04/2023. FINDINGS: Lower thorax: Unremarkable Liver: Diffuse fatty infiltration. Biliary/Gallbladder: Gallbladder is normal. No bile duct dilation. Pancreas: No mass or duct dilation. Spleen: Normal. Adrenals:No mass. Kidneys: No suspicious mass, obstructing stone, or hydronephrosis. GI tract: Moderate distal esophageal and gastric wall edema. No small or large bowel dilation. Normal appendix. Diverticulosis without diverticulitis. Mesentery/Peritoneum: No ascites, mass, or free air. Retroperitoneum: No mass. Pelvis: Absent uterus. Normal bilateral ovaries. Small volume free pelvic fluid. Mild urinary bladder wall thickening.. Soft Tissues: Soft tissues and body wall unremarkable. Bones: No acute osseous finding. IMPRESSION: Moderate esophagitis/gastritis. Hepatic steatosis. Possible cystitis, correlate with urinalysis. Small volume pelvic fluid, within physiologic range. Reviewed, dictated and finalized at location K. VITIES DIRECTOR SCOUTING
--- OUTSIDE RECORDS SUMMARY | 2024-05-25 12:47 | XMS_ITS | Referral Summary ---
Author Organization [facility] [place] Address [address] [place] [address] Care Team Providers Care Lead Level Designer Name Role Phone Farhad Fuchs MD Primary Care Provider [phone] Source Comments [facility],non-owned Affiliates and Associated Physician Practices is amultiple site organization consisting of ambulatory clinics and hospital sitesin [place], [place], [place] and [place]. This disclosure is being madepursuant to the Care Everywhere program and may not contain all information available regarding this patient. Last updated 18.[facility] Allergies Active Allergy Reactions Criticality Noted Date [...] Comments Blood Pressure 128/76 03/09/2022 10:42 AM [employer]NA[employer]ELOP[employer] Pulse 82 01/08/2016 7:54 AM CDT Temperature 36.6 C (97.8 F) 03/09/2022 10:42 AM MANAGER [employer]ELOPMENT Respiratory Rate 16 01/08/2016 7:54 AM CDT Oxygen Saturation 100% 01/08/2016 7:54 AM CDT Inhaled Oxygen Concentration - - Weight 85.1 kg (187 lb 9.6 oz) 03/09/2022 10:42 AM [employer]ELOP[employer] Height 157.5 cm (5' 2 ) 03/09/2022 10:42 AM MANAGER [employer]ELOPMENT Body Mass Index 34.31 03/09/2022 10:42 AM MANAGER [employer]ELOPMENT Functional Status Functional Status Response Date of [...] PANEL (CALCIUM TOTAL) (01/08/2016 4:02 AM CDT) [facility] Glucose 95 74 - 106 mg/dL 01/08/2016 5:06 AM CDT [facility] Sodium 139 136 - 145 mmol/L 01/08/2016 5:06 AM CDT [facility] Potassium 3.8 3.5 - 5.1 mmol/L 01/08/2016 5:06 AM CDT [facility] Chloride 104 98 - 107 mmol/L 01/08/2016 5:06 AM CDT [facility] CO2 28 22 - 31 mmol/L 01/08/2016 5:06 AM CDT [facility] Calcium 8.9 8.5 - 10.1 mg/dL 01/08/2016 5:06 AM CDT [facility] Anion Gap 7 5 - 20 mmol/L 01/08/2016 5:06 AM CDT [facility] BUN 12 7 - 21 mg/dL 01/08/2016 5:06 AM CDT [facility] Creatinine 0.95 0.50 - 1.30 mg/dL 01/08/2016 5:06 AM CDT [facility] eGFR by MDRD >60 >60 mL/min/1.7 3m2 01/08/2016 5:06 AM CDT [facility] eGFR by MDRD >60 >60 mL/min/1.7 3m2 01/08/2016 5:06 AM CDT [facility] Blood BLOOD SPECIMEN / Unknown 01/08/2016 4:02 AM CDT 01/08/2016 4:35 AM CDT Michaela Winters MD LAB - CHEMISTRY ORDERABLES [facility] [address] [place] [address] from Last 3 Months or Most Recently Relevant to Health Maintenance Advance Directives * Full Code (Latest Code Status on File) Date Activated Date Inactivated Comments 01/07/2016 7:16 PM 01/08/2016 12:15 PM * Full Code Date Activated Date Inactivated Comments 01/07/2016 3:44 PM 01/07/2016 7:16 PM Care Teams Lead Level Designer Relationship Specialty Start Date End Date Farhad Fuchs MD PCP - General 01/15/18
--- OUTSIDE RECORDS SUMMARY | 2024-05-25 12:47 | XMS_ITS | Encounter Summary ---
Author Organization [facility] Address [address] [place] [address] Care Team Providers Care Podiatric Medicine Professor Name Role Phone Viridiana Zaidi NP Primary Care Provider [phone] Encounter Details Date Type Department Care Team (Late Contact Info) Description 12/12/2023 Observable Networks Message Enc [facility] Family Medicine - [place] [address] [facility] [address] [place] [phone] Viridiana Zaidi, BIOMEDICAL ELECTRONICS TECHNICIAN [address] [place] [address] Anemia Social History Tobacco Use Types Packs/Day [...] Info) Description 07/02/2024 12:30 PM CDT Appointment [facility] [address] [facility] [address] [place], [place] [phone] Conner Bob MD [address] [place] [address] 07/02/2024 1:00 PM CDT Appointment [facility] [address] [place] [address] Conner Bob MD [address] [facility] [address] [place], [place] [address] documented as of this encounter Visit Diagnoses Not on filedocumented in this encounter Additional Health Concerns Infection Onset Date Last Indicated Resolved Time 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
--- OUTSIDE RECORDS SUMMARY | 2024-05-25 12:47 | XMS_ITS | Clinical Summary ---
Author Organization [facility] Address [facility] [place] [address] Care Team Providers Care Gettering Operator Name Role Phone Viridiana Zaidi NP Primary Care Provider [phone] Allergies Active Allergy Reactions Criticality Noted Date [...] complication, without long-term current use of insulin ([facility]) 12/11/2023 Overview (12/11/2023): Recent A1C [...] back to PT and with someone in [place]. Assessment & Plan (12/11/2023 10:44 AM CDT): Referral to PT in [place] placed. Gastroesophageal reflux dise ase, unspecified whether [...] CDT): Encourage stress relieving activities. Health head coach also recommended. Vitamin D deficiency 10/19/2021 [...] and lifestyle changes discussed. Encourage health head coach as well and personal protection specialist to help with accountability. Pt's goals are [...] Encounters Date Type Department Care Team Description 05/23/2024 Scan [facility] Scanned, [facility] Colonoscopy Report (SCAN) 04/02/2024 Scan [facility] Scanned, [facility] 03/21/2024 Scan [facility] Scanned, [facility] 03/20/2024 2:00 PM [place] Office Visit [facility] Family Medicine - [place] [address] [facility] [address] [place] [address] Viridiana Zaidi NP Obesity (Patient presents to discuss weight loss options) 03/20/2024 Travel 03/19/2024 Scan [facility] Scanned, [facility] 03/11/2024 Travel 03/01/2024 6:15 AM [employer] - 03/01/2024 11:59 PM [employer] [place] Hospital Encounter [facility] Ultrasound [address] [address] Lori Bob MD Discharge Disposition: Home or [...] Comments Blood Pressure 122/80 03/20/2024 2:03 PM [employer] Pulse 94 03/20/2024 2:03 PM [employer] [place] Temperature 37.1 C (98.8 F) 03/20/2024 2:03 PM [employer] [place] Respiratory Rate 18 03/20/2024 2:03 PM [employer] Oxygen Saturation 100% 03/20/2024 2:03 PM [employer] [place] Inhaled Oxygen Concentration - - Weight 90.3 kg (199 lb) 03/20/2024 2:03 PM [employer] [place] Height 157.5 cm (5' 2 ) 03/20/2024 2:03 PM [employer] Body Mass Index 36.4 03/20/2024 2:03 PM [employer] Plan of Treatment Upcoming Encounters Date Type Department Care Team (Late st Contact Info) Description 07/02/2024 12:30 PM CDT Appointment [facility] [address] [employer] [employer] [place] [place], [place] [phone] Lori Bob MD [address] [place] [phone] 07/02/2024 1:00 PM CDT Appointment [facility] [address] [employer] [place], [place] [phone] Lori Bob MD [address] [place] [phone] Health Maintenance Due Date Last Done Comments Colorectal Cancer Screening Colonoscopy (10 Years) 1975 05/23/2024 Pneumococcal Vaccine: Pediatrics (0 to 5 Years) and At-Risk Patients (6 to 64 Years) (1 of 2 - PCV) 12/17/1983 Diabetes: Retinopathy Eye Exam 12/17/1995 DTaP, Tdap and Td Vaccines (1 - Tdap) 1996 Hepatitis B Vaccines (1 of 3 - 19+ 3-dose series) 1996 COVID-19 Vaccine (3 - season) 2023 05/12/2021, 07/18/2020 Influenza Adult (#1) 2024 PHQ-2 (Physician [place]) 04/17/2024 12/11/2023 Hemoglobin A1C 06/06/2024 12/05/2023, 08/0 11/2022, 10/08/2021 Kidney Health Evaluation 12/04/2024 12/05/2023 Lipid Panel 12/04/2024 12/05/2023, 08/0 11/2022, 10/08/2021 Annual Physical 12/10/2024 12/11/2023, 06/24/2021 Mammogram Screening 03/01/2026 03/01/2024, 01/30/2024, 01/30/2024, Additional [...] Procedure Name Priority Date/Time Associated Diagnosis Comments COLONOSCOPY GENERIC (SCAN ORDER) 05/23/2024 MG DI[facility]NOSTIC RT DIGI Routine 03/01/2024 7:24 AM [employer] Breast mass, right US GD BREAST BX RT BIRAD Routine 03/01/2024 7:16 AM [employer] [place] Breast mass, right PATHOLOGY Routine 03/01/2024 12:00 AM [place] Breast mass, right LIPID PANEL Routine 12/05/2023 9:24 AM CDT Hyperlipidemia, unspecified hyperlipidemia type HEMOGLOBIN, GLYCOSYLATED Routine 12/05/2023 9:24 AM CDT Type 2 diabetes mellitus without complication, without long-term current use of insulin (CMS/HCC HHS/HCC) HEPATITIS C ANTIBODY W/RFX TO HCV RNA Routine 10/08/2021 12:59 PM CDT from Last 3 Months or Most Recently Relevant to Health Maintenance Results * COLONOSCOPY GENERIC (SCAN ORDER) (05/23/2024) 05/23/2024 us [facility] Scanned SCANNING Final Resu lt * MG DIAGNOSTIC RT DIGI (03/01/2024 7:24 AM [employer]) Anatomical Region Laterality Modality Breast Right Mammography 03/01/2024 7:56 AM [employer] Impressions 03/01/2024 8:01 AM [employer] IMPRESSION: Ultrasound-guided right breast biopsy performed by Dr. Bob. Postbiopsy changes as above. Ordered By: LORI BOB Interpreted By: Zack Fortune, 03/01/2024 7:56 AM Narrative 03/01/2024 8:01 AM [employer] [place] [address] EXAMINATION: MG DIAGNOSTIC RT DIGI, US GD BREAST BX RT BIRAD [id number] INDICATIONS: Unspecified lump in the right breast, [...] BREAST BX RT BIRAD (03/01/2024 7:16 AM [employer]) Anatomical Region Laterality Modality Breast Right Ultrasound RIGHT BREAST STRUCTURE / Unknown 03/01/2024 7:56 AM [employer] Impressions 03/01/2024 8:01 AM [employer] IMPRESSION: Ultrasound-guided right breast biopsy performed by Dr. Bob. Postbiopsy changes as above. Ordered By: LORI BOB Interpreted By: Zack Fortune, 03/01/2024 7:56 AM Narrative 03/01/2024 8:01 AM [employer] [address] [address] EXAMINATION: MG DIAGNOSTIC RT DIGI, US GD BREAST BX RT BIRAD [id number] INDICATIONS: Unspecified lump in the right breast, [...] Final Result * Pathology (03/01/2024 12:00 AM [employer]) PATHOLOGY [facility] Department of Laboratory Medicine [address] [place] [address] , extension [phone] Pathology Report Addendum Surgical Pathology Report Name: NERI ELIZONDO Specimen #: [id number] Age: 9 1975 (Age: 48) Location: [facility] Sex: F Procedure Date: 03/01/2024 Hospital #: [id number] Date Received: 03/01/2024 Date Reported: Provider: LORI [...] Gross examination (when applicable) was performed at [facility], [address] [place] [address]. This case was interpreted and signed out at [facility], [address] [place] [address]. FINAL DIAGNOSIS: Breast, right 9:00, biopsy: -Benign [...] tests were developed by and performed at [facility], [address] [place] [address]. All tests reported here have not been cleared or approved by the U.S. Food and Drug Administration (FDA). This laboratory is regulated under CLIA as qualified to perform high-complexity testing. These tests are used for clinical purposes. They should not be regarded as investigational or for research. Positive and negative controls show appropriate reactivity. ALETHA LOMBARDI MD [facility] 03/01/2024 03/01/2024 12: 24 PM [employer] Comment:Right breast, needle biopsies 9:00 Lori Bob MD PATHOLOGY/CYTOLOGY ORDERABLES Final Result Performing Organization Address City/[facility]/ZIP Co de Phone Number [facility] [address] [place] [address], [place] [phone] * (ABNORMAL) HEMOGLOBIN, GLYCOSYLATED (12/05/2023 9:24 AM CDT) HGB A1C 6.4(H) 4.5 - 6.2 % 12/05/2023 3:39 PM CDT [facility] ESTIMATED AVG GLUCOSE 137(H) 74 - 106 MG/DL 12/05/2023 3:39 PM [address] [facility] 12/05/2023 9:24 AM CDT Viridiana Zaidi NP LABORATORY Final Res ult Performing Organization Address City/[facility]/ZIP Co de Phone Number [facility] [address] [place] [address], [place] [phone] * LIPID PANEL (12/05/2023 9:24 AM CDT) CHOLESTEROL 166 <200 MG/DL 12/05/2023 3:34 PM CDT [facility] TRIGLYCERIDES 111 <150 MG/DL 12/05/2023 3:34 PM CDT [facility] HDL 67 >40 MG/DL 12/05/2023 3:34 PM CD[address] [facility] LDL-C 77 <100 MG/DL 12/05/2023 3:34 PM CDT [facility] VLDL CALCULATION 22 5 - 28 MG/DL 12/05/2023 3:34 PM CD[address] [facility] CHOL/HDL RATIO 2.5 0.0 - 4.0 12/05/2023 3:34 PM [address] [facility] LDL/HDL 1.1 0.41 - 2.13 12/05/2023 3:34 PM CDT [facility] NON HDL CHOLESTEROL 99 <140 MG/DL 12/05/2023 3:[address] PM [address] [facility] 12/05/2023 9:24 AM CDT us Viridiana Zaidi TALENT RECRUITER LABORATORY Final Res ult [facility] [address] [place] [address], * HEPATITIS C ANTIBODY W/RFX TO HCV [...] a test for HCV RNA (test code 15647) is suggested. For additional information please refer to http://education.[place]/faq/MKN06e0 (This link is being provided for informational/ educational purposes only.) 10/08/2021 12:5 9 PM CDT 10/08/2021 1:00 PM CDT Narrative [facility] - 10/14/2021 5:13 PM CDT FASTING:YES FASTING: YES us Viridiana Zaidi TALENT RECRUITER LABORATORY Final Res ult [facility] [id number] [address] [phone] from Last 3 Months or Most Recently Relevant to Health Maintenance Additional Health Concerns Infection Onset Date Last Indicated MRSA 11/21/2016 11/21/2016 Insurance [place] [address] Care Teams Gettering Operator Relationship Specialty Start Date End Date Viridiana Zaidi NP [address] [place] [address] PCP - General NURSE PRACTITIONER 06/17/21
--- OUTSIDE RECORDS SUMMARY | 2024-05-25 12:47 | XMS_ITS | Data Portability ---
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 Plan of Treatment Reminders Order Date Submit Date Provider Last Modified By Organization Details Last Modified Time Details Appointments None recorded. Lab urinalysis, dipstick 2021 022 [place], [address], [place], [address], 16:08:14 urinalysis, dipstick 2023 024 [email or web address] [place] [facility] [address], [place], [address], 4 09:48:09 Referral urogynecolo gist referral - Chronic interstitia l cystitis managementP lenancy contact this patient to schedule an appointment . This patient has an appointment with Dr Graves on Monday03/09/2022 @ 11:00 am.Attached are the patients demographic s, most recent office visit notes and UA results.If you have any questions, please contact me at [phone].Thank you,Tamara, Referral's 2021 ZACHARIAH Graves MD, [address] [facility], [facility] [address], [place], [address], 01:30:21 Procedures None recorded. Surgeries None recorded. Imaging None recorded. Medication Orders Pyridium 200 mg tablet [address] [facility] #[id number], [address] [facility], [place], [place], [id number], 3 18:14:59 Macrobid 100 mg capsule [address] [facility]89628, [address] [facility], [place], [place], [id number], 3 18:15:14 Diflucan 200 mg tablet 2022 024 [facility]28240, [address] [place], [place], [id number], 4 10:49:06 Valtrex 1 gram tablet [address] [facility]05753, [address] [facility], [place], [place], [id number], 4 10:49:06 lidocaine HCl 2 % mucosal jelly 2022 024 [facility] #53059, [address] [place], [place], [id number], 4 10:48:54 Keflex 500 mg capsule [address] [facility]36660, [address] [place], [place], [id number], 4 10:48:28 Valtrex 500 mg tablet 2022 023 [facility] #44975, [address] [place], [place], [id number], 3 16:48:31 Diflucan 200 mg tablet 2022 023 [address] [facility], [address] [facility], [place], [place], [id number], 4 10:48:24 nystatin-tr iamcinolone 100,000 unit/gram-0 .1 % topical ointment 2022 023 [facility] #68152, [address] [facility], [place], [place], [id number], 3 16:48:29 fluconazole 150 mg tablet 2023 024 [facility] #09151, [address] [facility], [place], [place], [id number], 4 11:03:07 metronidazo le 500 mg tablet 2023 024 [facility] #98827, [address] [facility], [place], [place], [id number], 4 11:03:08 nystatin-tr iamcinolone 100,000 unit/gram-0 .1 % topical ointment 2023 024 [facility] #68563, [address] [facility], [place], [place], [id number], 4 11:03:08 Patient TargetsNo targets recorded. Patient [...] have any questions, please contact me at [phone].Thank you,Tamara Referral's Referring Physician: Rhonda Alarcon, PHARMACIST CRITICAL CARE, Encounter Date: 02/11/2022 Results Created Date Observation Date Name Description Value Unit Range Abnormal Flag Note LastModifiedBy Organization Detail LastModifiedTime 02/12/2002/11/2022 URINA LYSIS , WITH MICRO SCOPI C urinalysis, with microscopic CANCEL LED Reord ered Not Available [facility] Infect[facility] [place], [address], 02/12/2022 00:30:11 02/12/2002/11/2022 URINA LYSIS , COMPL ETE (QUES T) color DARK YELLOW yellow Not Available [facility] [place], [address], 02/12/2022 21:37:27 02/12/20 22 02/11/2022 URINA LYSIS , COMPL ETE (QUES T) apperance CLEAR clear Not Available [facility] [place], [address], 02/12/2022 21:37:27 02/12/20 22 02/11/2022 URINA LYSIS , COMPL ETE (QUES T) specific gravity 1.025 1.001- 1.035 Not Available [facility] [place], [address], 02/12/2022 21:37:27 02/12/20 22 02/11/2022 URINA LYSIS , COMPL ETE (QUES T) pH 8.0 5.0-8. 0 Not Available [facility] [place], [address], 02/12/2022 21:37:27 02/12/20 22 02/11/2022 URINA LYSIS , COMPL ETE (QUES T) glucose NEGATI VE negati ve Not Available [facility] [place], [address], 02/12/2022 21:37:27 02/12/20 22 02/11/2022 URINA LYSIS , COMPL ETE (QUES T) bilirubin NEGATI VE negati ve Not Available [facility] [address] [place] [address], [address], 02/12/2022 21:37:27 02/12/20 22 02/11/2022 URINA LYSIS , COMPL ETE (QUES T) ketones TRACE negati ve abnormal Not Available [facility] [address] [place] [address], [address], 02/12/2022 21:37:27 02/12/20 22 02/11/2022 URINA LYSIS , COMPL ETE (QUES T) occult blood NEGATI VE negati ve Not Available [facility] [address] [place] [address], [address], 02/12/2022 21:37:27 02/12/20 22 02/11/2022 URINA LYSIS , COMPL ETE (QUES T) protein TRACE negati ve abnormal Not Available [facility] [address] [place] [address], [address], 02/12/2022 21:37:27 02/12/20 22 02/11/2022 URINA LYSIS , COMPL ETE (QUES T) nitrite NEGATI VE negati ve Not Available [facility] [address] [place] [address], [address], 02/12/2022 21:37:27 02/12/20 22 02/11/2022 URINA LYSIS , COMPL ETE (QUES T) leukocyte esterase NEGATI VE negati ve Not Available [facility] [address] [place] [address], [id number], 02/12/2022 21:37:27 02/12/20 22 02/11/2022 URINA LYSIS , COMPL ETE (QUES T) WBC NONE SEEN /hpf < or = 5 Not Available [facility] [address] [place] [address], [id number], 02/12/2022 21:37:27 02/12/20 22 02/11/2022 URINA LYSIS , COMPL ETE (QUES T) RBC NONE SEEN /hpf < or = 2 Not Available [facility] Infect[facility] Disease [address] [place] [address], [address], 02/12/2022 21:37:27 02/12/20 22 02/11/2022 URINA LYSIS , COMPL ETE (QUES T) squamous epithelial cells 0-5 /hpf < or = 5 Not Available [facility] Disease [address] [place] [address], [address], 02/12/2022 21:37:27 02/12/20 22 02/11/2022 URINA LYSIS , COMPL ETE (QUES T) bacteria NONE SEEN /hpf none seen Not Available [facility] Disease [address] [place] [address], [address], 02/12/2022 21:37:27 02/12/20 22 02/11/2022 URINA LYSIS , COMPL ETE (QUES T) hyaline cast NONE SEEN /lpf none seen Perfo rming Organ izati on Infor matio n: Site ID: CB Name: [facility] [place] Addre ss: [address] [facility] [address] Dire tor: Sera gilmore M.D. Not Available [facility] Infectious Disease [address] [place] [address], [address], 02/12/2022 21:37:27 02/12/20 22 02/11/2022 CULTU RE: URINE result report SEE RESULT S BELOW Test: Cultu re: Urine Speci men Sourc e: Urine Voide d Speci men Type: Urine Speci men Date: 02/11 3:57 PM Resul t Date: 02/12 8:35 PM Resul t Statu s: Final resul t Abnor mal: No Resul melissag Lab: [facility] [address] [facility] [address] [facility] [address] Tel: CULTU RE ----- ----- ----- --- No growt h in 1 day (dete ction level of 10,00 0 colon ies / ml.) Not Available [facility] Infectious Disease [address] [place], [address], 02/12/2022 21:37:27 02/12/2002/11/2022 urina lysis , dipst ick Leukocytes neg Not Available [facility] [address], [place], [address], 02/11/2022 16:07:32 02/12/2002/11/2022 urina lysis , dipst ick Nitrite neg Not Available [place] [address], [place], [address], 02/11/2022 16:07:32 02/12/20 22 02/11/2022 urina lysis , dipst ick Urobilinogen neg Not Available [facility] [address], [place], [address], 02/11/2022 16:07:32 02/12/20 22 02/11/2022 urina lysis , dipst ick Protein neg Not Available [place] [address], [place], [address], 02/11/2022 16:07:32 02/12/20 22 02/11/2022 urina lysis , dipst ick pH 7 Not Available [place] [address], [place], [address], 02/11/2022 16:07:32 02/12/20 22 02/11/2022 urina lysis , dipst ick Specific Dalton 1.000 Not Available [facility] [address], [place], [address], 02/11/2022 16:07:32 02/12/20 22 02/11/2022 urina lysis , dipst ick Ketone neg Not Available [place] [address], [place], [address], 02/11/2022 16:07:32 02/12/20 22 02/11/2022 urina lysis , dipst ick Bilirubin neg Not Available [facility] [address], [place], [address], 02/11/2022 16:07:32 02/12/20 22 02/11/2022 urina lysis , dipst ick Glucose neg Not Available [place] [address], [place], [address], 02/11/2022 16:07:32 02/12/20 22 02/11/2022 urina lysis , dipst ick Appearance cloudy Not Available [facility] [address], [place], [address], 02/11/2022 16:07:32 02/12/20 22 02/11/2022 urina lysis , dipst ick Color yellow Not Available [place] [address], [place], [address], 02/11/2022 16:07:32 11/24/19 23 11/23/2022 CT/GC AND TRICH OMONA S VAGIN BRANDAN (RRNA ), URINE chlamydia trachomatis, PCR Negati ve negati ve Not Available [facility] (Lab) [address], [place], [address], 11/24/2022 13:09:56 11/24/19 23 11/23/2022 CT/GC AND TRICH OMONA S VAGIN BRANDAN (RRNA ), URINE neisseria gonorrhoeae, PCR Negati ve negati ve Not Available [facility] (Lab) [address] [facility], [place], [address], 11/24/2022 13:09:56 11/24/19 23 11/23/2022 CT/GC AND TRICH OMONA S VAGIN BRANDAN (RRNA ), URINE trichomonas vaginalis ribosomal RNA (rrna) Negati ve negati ve Not Available [facility] (Lab) [address] [facility], [place], [address], 11/24/2022 13:09:56 06/09/19 24 06/09/2023 CT/GC AND TRICH OMONA S VAGIN BRANDAN (RRNA ), SWAB chlamydia trachomatis, PCR Negati ve negati ve Not Available [facility] (Lab) [address] [facility], [place], [address], 06/12/2023 12:12:40 06/09/19 24 06/09/2023 CT/GC AND TRICH OMONA S VAGIN BRANDAN (RRNA ), SWAB neisseria gonorrhoeae, PCR Negati ve negati ve Not Available [facility] (Lab) [address] [facility], [place], [address], 06/12/2023 12:12:40 06/09/19 24 06/09/2023 CT/GC AND TRICH OMONA S VAGIN BRANDAN (RRNA ), SWAB trichomonas vaginalis ribosomal RNA (rrna) Negati ve negati ve Not Available [facility] (Lab) [address] [facility], [place], [address], 06/12/2023 12:12:40 06/09/19 24 06/09/2023 VAGIN ITIS/ VAGIN OSIS, DNA PROBE connor sp. detection, direct probe Negati ve negati ve Not Available [facility] (Lab) [address] [facility], [place], [address], 06/12/2023 12:12:41 06/09/19 24 06/09/2023 VAGIN ITIS/ VAGIN OSIS, DNA PROBE gardnerella vag. detection, direct probe Positi ve negati ve abnormal Not Available [facility] (Lab) [address] [facility], [place], [address], 06/12/2023 12:12:41 06/09/19 24 06/09/2023 VAGIN ITIS/ VAGIN OSIS, DNA PROBE trichomonas vag. detection, direct probe Negati ve negati ve Not Available [facility] (Lab) [address] [facility], [place], [address], 06/12/2023 12:12:41 12/19/19 24 12/19/2023 CULTU RE: URINE result report SEE RESULT S BELOW Test: Cultu re: Urine Speci men Sourc e: Urine - Clean Catch Speci men Type: Urine Speci men Date: 1050 Resul t Date: 0458 Resul t Statu s: Final resul t Abnor mal: No Resul ting Lab: [facility] [address] [facility] [address] Tel: CULTU RE ----- ----- ----- --- No growt h in 1 day (dete ction level of 10,00 0 colon ies / ml.) Not Available [facility] (Lab) [address] [facility], [place], [address], 12/21/2023 06:03:57 12/19/19 24 12/19/2023 urina lysis , dipst ick Leukocytes Trace Not Available [facility] [address], [place], [address], 12/19/2023 09:47:12 12/19/19 24 12/19/2023 urina lysis , dipst ick Nitrite Negati ve Not Available [place] [address], [place], [address], 12/19/2023 09:47:12 12/19/19 24 12/19/2023 urina lysis , dipst ick Urobilinogen Normal Not Available [facility] [address], [place], [address], 12/19/2023 09:47:12 12/19/19 24 12/19/2023 urina lysis , dipst ick Protein Negati ve Not Available [place] [address], [place], [address], 12/19/2023 09:47:12 12/19/19 24 12/19/2023 urina lysis , dipst ick pH 5 Not Available [place] [address], [place], [address], 12/19/2023 09:47:12 12/19/1912/19/2023 urina lysis , dipst ick Blood ++ Not Available [place] [address], [place], [address], 12/19/2023 09:47:12 12/19/19 24 12/19/2023 urina lysis , dipst ick Specific Dalton 1.030 Not Available [facility] [address], [place], [address], 12/19/2023 09:47:12 12/19/19 24 12/19/2023 urina lysis , dipst ick Ketone Negati ve Not Available [place] [address], [place], [address], 12/19/2023 09:47:12 12/19/19 24 12/19/2023 urina lysis , dipst ick Bilirubin Negati ve Not Available [place] [address], [place], [address], 12/19/2023 09:47:12 12/19/19 24 12/19/2023 urina lysis , dipst ick Glucose Normal Not Available [place] [address], [place], [address], 12/19/2023 09:47:12 12/19/19 24 12/19/2023 urina lysis , dipst ick Color Dark Yellow Not Available [place] [address], [place], [address], 12/19/2023 09:47:12 Result Notes None recorded. Problems Name Problem SNOMED Code Status Onset Date Resolution Date Notes Provider Name and Address Organization Details Recorded Time Acute vaginiti s 96890780 Completed 201601/14/2021 Acute vulvovagi nitis;Rec orded Elsewhere : No Locati on: [facility] So urce: EHR Chron ic: N Practic e ID: 0001 Bill able Time: 01:00:00 PM [facility] 14:24:12 Pelvic and perineal pain 715122586 Completed 201701/14/2021 Pelvic and perineal pain;Kal rded Elsewhere : No Locati on: [facility] So urce: EHR Chron ic: N Practic e ID: 0001 Bill able Time: 11:30:00 AM Ashley Hunter [facility] 14:24:23 Vaginola bial hernia Completed 201701/14/2021 Other specified noninflam matory disorders of vagina;Re corded Elsewhere : No Locati on: [facility] So urce: EHR Chron ic: N Practic e ID: 0001 Bill able Time: 11:30:00 AM Ashley Hunter [facility] 14:24:[address] Concept Completed 201901/14/2021 Encntr for toe stapler exam (general) (routine) w/o abn findings; Recorded Elsewhere : No Locati on: [facility] So urce: EHR Chron ic: N Practic e ID: 0001 Bill able Time: 09:45:00 AM Ashley Hunter [facility] 09/30/202 1 14:24:26 Syphilis test finding 222574200 Completed 201701/14/2021 Encntr screen for infection s w sexl mode of transmiss ;Recorded Elsewhere : No Locati on: [facility] So urce: EHR Chron ic: N Practic e ID: 0001 Bill able Time: 11:30:00 AM [facility] 14:24:[address] Concept Completed 201601/14/2021 Encntr for general adult medical exam w/o abnormal findings; Recorded Elsewhere : No Locati on: [facility] So urce: EHR Chron ic: N Practic e ID: 0001 Bill able Time: 02:30:00 PM [facility] 14:24:24 Itching 061415859 Completed 201601/14/2021 Pruritus, unspecifi ed;Record ed Elsewhere : No Locati on: [facility] So urce: EHR Chron ic: N Practic e ID: 0001 Bill able Time: 10:30:00 AM [facility] 14:24:21 Connor infectio n of genital region Completed 201801/14/2021 Candidal vulvovagi nitis;Rec orded Elsewhere : No Locati on: [facility] So urce: EHR Chron ic: N Practic e ID: 0001 Bill able Time: 04:00:00 PM [facility] 14:24:15 Infectio n screenin g Completed 201701/14/2021 Encounter for screening for oth infec/par astc diseases; Recorded Elsewhere : No Locati on: [facility] So urce: EHR Chron ic: N Practic e ID: 0001 Bill able Time: 11:30:00 AM [facility] 14:24:20 Hyperten sive disorder [id number] Completed 201501/14/2021 Essential (primary) hypertens ion;Recor ded Elsewhere : No Locati on: [facility] So urce: EHR Chron ic: N Practic e ID: 0001 Bill able Time: 01:45:00 PM [facility] 14:24:18 Body mass index 30+ - obesity 635002362 Completed 201501/14/2021 Body mass index (BMI) 36.0-36.9 , adult;Rec orded Elsewhere : No Locati on: [facility] So urce: EHR Chron ic: N Practic e ID: 0001 Bill able Time: 01:45:00 PM [facility] 14:24:13 Dysuria 84445950 Completed 201601/14/2021 Dysuria;P ractice ID: 0001 [facility] 14:24:17 Problem Notes None recorded. Procedures Surgical History Date Name Laterality Status Provider Name and Address Organization Details Recorded Time 01/15/20 21 Date of Last Pap Smear completed [facility] 02/11/2022 16:06:59 07/29/19 20 Date of Last Mammogram completed [facility] 01/14/2021 14:26:32 04/17/19 17 Breast reduction completed [facility] 01/14/2021 14:57:49 04/17/19 14 Partial Hysterectomy completed Mar[facility] 11/09/2020 09:42:54 Imaging Results None recorded. Procedure Notes None recorded. Medical Equipment None Reported. Allergies No known drug allergies Medications Name Sig Start Date Stop Date Status Note LastModified by Organization Details LastModified Time atorvasta tin 40 mg tablet take 1 tablet by oral route every day 01/14 completed Prescrib ed Elsewher e: Yes Loca tion: [facility] M odify By: Encount er DateTime : 04/20/19 04:00:00 PM Not Available Not Available Not Available metformin 500 mg tablet TAKE 1 TABLET BY MOUTH TWICE DAILY active Not Available Not Available No t Available terconazo le 0.4 % vaginal cream insert 1 applicat orful by vaginal route every day for 7 days at bedtime 04/26 completed Prescrib ed Elsewher e: No Locat ion: Prateek whitaker [facility] odify By: karina bolden DateTime : [...] Elsewher e: No Locat ion: Prateek whitaker [facility] odify By: nhung bolden DateTime : [...] Elsewher e: No Locat ion: Prateek whitaker [facility] M odify By: mike prasad DateTime [...] jame Sinclair e: No Locat ion: [facility] odify By: Encount er DateTime : 02/09/20 17 01:00:00 PM Not Available Not Available Not Available fluticaso ne propionat e 50 mcg/actua tion nasal spray,parker pension 11/23 completed Not Available Not Available Not Available metformin ER 500 mg tablet,ex tended release 24 hr take 2 tablet by oral route every day with the evening meal 02/11 completed Prescrib ed Elsewher e: Yes [facility] By: ron prasad DateTime : 10/24/19 [...] Elsewher e: Yes Loca tion: Kishatonia sherman [facility] odify By: elizabeth aburto Encoun ter [...] Prescrib ed Elsewher e: Yes Loca tion: [facility] odify By: elizabeth Merrill ter DateTime : 10/30/19 16 01:45:00 PM Not Available Not Available Not Available nitrofura ntoin monohydra te/macroc rystals 100 mg capsule TAKE 1 CAPSULE BY MOUTH EVERY 12 HOURS WITH MEALS FOR 7 DAYS active Not Available Not Available No t Available [facility] 2.65 % nasal spray [...] Details Last Updated DateTime 02/11/2022 158.75 cm 75171.55 g 34.2 kg/m2 122 mm[Hg] 76 mm[Hg] Ashley Hunter [facility] 2 16:06:12 Date Recorded Body height Body mass index (BMI) Body weight Systolic blood pressure Diastolic blood pressure Provider Name and Address Organization Details Last Updated DateTime 11/23/2022 158.75 cm 34.6 kg/m2 71180.74 g 137 mm[Hg] 84 mm[Hg] Nola Mosley [facility] 3 18:13:49 Date Recorded Body height Body mass index (BMI) Body weight Systolic blood pressure Diastolic blood pressure Provider Name and Address Organization Details Last Updated DateTime 12/07/2022 158.75 cm 35.3 kg/m2 66540.1 g 128 mm[Hg] 79 mm[Hg] Ashley Lambert [facility] 3 16:30:58 Date Recorded Body height Body mass index (BMI) Body weight Systolic blood pressure Diastolic blood pressure Provider Name and Address Organization Details Last Updated DateTime 06/09/2023 158.75 cm 34.2 kg/m2 11839.55 g 136 mm[Hg] 86 mm[Hg] Sommer Koehler [facility] 4 10:48:05 Social History Question Answer Notes LastModified by Organizat ion Details LastModified Time Tobacco Smoking Status Never [facility]oker [facility] 01/14/2021 14:27:15 What Is Your Level [...] Anxious, Or Unable To Sleep At Night)? [id number] Information not available 01/14/2021 Do You Use [...] SNOMED-CT Code Diagnosis ICD10 Code Diagnosis Note [id number] Rhonda Alarcon [facility] [address] [address] 01/14/2021 14:25:42 01/14/2021 16:34:13 Gynecologic examination 66099966 Z01.419 Suggested Calcium with Vitamin D 1200-1500m g daily. Patient advised to get an annual flu shot in the fall and she could obtain at [facility] or [facility] care clinic. Also to obtain TDap vaccinatio [...] std screenmamm o ordered Pain in pelvis 86374402 R10.2 Likely pain she is feeling is from left hip/pirifo rmis issues that are aggravatin g her lower back and sciatic nerve. However, some pain on left adnexal area so will ensure no issues & update TVUS.She is due to start PT next week for her back/sciat ic nerve pain.Heat/ ice/biofre elder [id number] Yosi Mercer MD [place] [address] [address] 07/05/2021 13:45:37 07/05/2021 14:56:52 Vaginitis 34459034 N76.0 this patient is a 45-year-ol d [...] antifungal . She will follow-up as needed. [id number] BRIEN Reynolds [place] [address] [address] 07/29/2021 16:12:28 07/29/2021 17:35:48 Venereal disease screening 306739054 Z11.3 Sexually t ransmitted infectious disease 2549686 A64 Urinary symptoms 0303211 08 R39.9 Acute urin swathi tract infection 527815788 N39.0 Urinary burning, pain, and frequency for [...] patient was 35 minutes. Pain in pelvis 92731277 R10.2 [id number] Edilma Knott [place] [address],[place] [address] 08/04/2021 18:01:45 08/04/2021 18:41:06 Pain in pelvis 54659919 R10.2 59859 Dorys Lonine [facility] [address],[place] [address] 08/09/2021 10:02:37 08/09/2021 10:38:44 Pain in pelvis 08264091 R10.2 Blood in urine 47521936 R31.9 [id number] Rhonda Alarcon , [place] [address],[place] [address] 02/11/2022 15:52:12 02/11/2022 16:50:19 Urinary symptoms 387051171 R39.9 Chronic in terstitial cystitis 946336406 N30.10 Suspect CIC on exam, Hx & [...] counseling and review of plan of care. [id number] Rhonda Alarcon , [facility] [address],[place] [address] 11/23/2022 18:01:45 11/24/2022 16:40:09 Genital herpes simplex 08469780 A60.9 Suspect HSV outbreakHx of HSV in the past but no outbreaks for a very long time.Rx sentDeclin ed need for std screen Counseled on medication R/B's, Most common side effects, & use. All questions were answered to patient satisfacti on. Labial cyst [id number] N9 0.7 We agreed to treat labial cyst today.Rx sentCounse led on medication R/B's, Most common side effects, & use. All questions were answered to patient satisfacti on. Return if any further issues or persists. Time spent in visit is a total of 20mins with at least 50% of visit consisting of counseling and review of plan of care. Vaginitis [id number] N76.0 Suspect yeast on examRx sent Counseled on medication R/B's, Most common side effects, & use. All questions were answered to patient satisfacti on. [id number] [facility] [address],[place] [address] 12/07/2022 16:10:48 12/07/2022 17:41:11 Genital herpes simplex 71608031 A60.9 Wants to do suppressiv e therapy as previously discussed. Rx sent Counseled on medication R/B's, Most common side effects, & use. All questions were answered to patient satisfacti on. Time spent in visit is a total of 20 mins with at least 50% of visit consisting of counseling and review of plan of care. Vaginitis [id number] N76.0 RF sent for PRN use [id number] Dorys Fleming [facility] [place] [address],[place] [address] 06/09/2023 10:34:56 06/09/2023 11:43:31 Vaginitis [id number] N76.0 vaginitis/ STI panel sentsuspec t BV/yeastrx sent, r/b/a reviewedvu lvar care guidelines discussedR TC for WWE or sooner if needed Time spent in visit is a total of 22mins with at least 50% of visit consisting of counseling and review of plan of care. Venereal d isease screening [id number] Z11.3 [id number] Catherine Euceda [place] [address],[place] [address] 12/19/2023 09:28:17 12/19/2023 09:56:41 Urinary symptoms [id number] R39.9 Health Concerns Section Related Observation LastModified by Organization Detai ls LastModified Time None Recorded Concern Status LastModified by Organization Details LastModified Time None Recorded Advance Directives Directive None Recorded Payers Encounter Date Sequence Insurance Name Policy Number Policy Rivera Covered Member ID Rivera Member ID Guarantor Name 02/11/2022 3 [employer] [place] [employer] [facility] PLAN - DOS PRIOR TO 04.17.2023 [id number] Roshonda L Dominguez [id number] Roshonda L Dominguez 02/11/2022 2 [place] [facility] Roshonda Dominguez [id number] Roshonda L Dominguez 11/23/2022 3 [employer] [place] [facility] PLAN - DOS PRIOR TO 04.17.2023 [id number] Roshonda L Dominguez [id number] Roshonda L Dominguez 11/23/2022 2 [place] [facility] Roshonda Dominguez [id number] Roshonda L Dominguez 12/07/2022 3 [employer] [place] [facility] PLAN - DOS PRIOR TO 04.17.2023 [id number] Roshonda L Dominguez [id number] Roshonda L Dominguez 12/07/2022 2 [place] [facility] Roshonda Dominguez [id number] Roshonda L Dominguez 06/09/2023 2 [place] [facility] Roshonda Dominguez [id number] Roshonda L Dominguez 06/09/2023 1 [facility] [id number] Roshonda L Dominguez [id number] U Roshonda L Dominguez 12/19/2023 1 [facility] [id number] Roshonda L Dominguez [id number] U Roshonda L Dominguez Notes Date Note [...] in the urine;feelings of urgency [facility] [address], [place], [address], [facility] 02/11/2022 16:34:57 3 text/html Patient is here today for a painful bumps on vulva/labia, vag d/c, itching for about 3-4 days. Neg pain of abd/pelvis/flankNeg urinary sx'sNeg GI sx'sNeg N/V/F/C/DNeg Vag odor, irritation,SA-Monogamous Rhonda [facility] [address], [place], [address], [facility] 12/15/2022 18:07:26 3 text/html Here for vulvar check f/u. Rhonda Alarcon [facility] [address], [place], [address], [facility] 12/07/2022 17:39:34 4 text/html 47yopresents for evaluation of vaginal discharge and itchingsymptoms started 1 week ago, used a new soap at a hotel and symptoms occurred afterno new partnershysterectomy for BCneg odorsneg n/v/fneg pelvic painneg flu-like symptoms Dorys Fleming [facility] [address], [place], [address], [facility] 06/09/2023 11:40:43 OBGyn Episode Ob Episode Information Episode Created Date Number of Fetuses Patient Bloodtype Patient rh Status Prepregnancy Weight lbs Domestic Partner Domestic Partner Phone Father Name Commodity Lead Status 11/10/19 21 1 CLOSED Fetus Data First Name Last Name Admitted to NICU Weight (g) Sex Living Outcome Pediatric Complications Fetus ID Race Codes Race Delivery Type 2834.95 M Full Term 57884 Vaginal Delivery Daniel Calculation Initial Daniel Date [...] Domestic Partner Domestic Partner Phone Father Name Commodity Lead Status 11/10/19 21 1 CLOSED Fetus Data First Name Last Name Admitted to NICU Weight (g) Sex Living Outcome Pediatric Complications Fetus ID Race Codes Race Delivery Type 3175.14 4 F Full Term 03620 Vaginal Delivery Daniel Calculation Initial Daniel Date [...] Domestic Partner Domestic Partner Phone Father Name Commodity Lead Status 11/10/19 21 1 CLOSED Fetus Data First Name Last Name Admitted to NICU Weight (g) Sex Living Outcome Pediatric Complications Fetus ID Race Codes Race Delivery Type 2834.95 M Full Term 87660 Vaginal Delivery Daniel Calculation Initial Daniel Date [...] Domestic Partner Domestic Partner Phone Father Name Commodity Lead Status 11/10/19 21 1 CLOSED Fetus Data First Name Last Name Admitted to NICU Weight (g) Sex Living Outcome Pediatric Complications Fetus ID Race Codes Race Delivery Type 2976.47 0704 M Full Term 11752 Vaginal Delivery Daniel Calculation Initial Daniel Date [...]
--- OUTSIDE RECORDS SUMMARY | 2024-05-25 12:47 | XMS_ITS | Clinical Summary ---
Author Organization [facility] Address [address] [place] [address] Phone Care Team Providers Care Kitchen Worker Name Role Phone Provider, Unknown Primary Care Provider Unavaila ble Social History Tobacco Use Types Packs/Day Years Used Date Smoking Tobacco: Never Assessed Comments Unknown Sex and Gender Information Value Date Recorded Sex Assigned at Not on file Legal Sex Female 5:24 PM CDT Gender Identity Not on file Sexual Orientation Not on file Plan of Treatment Not on file Care Teams Kitchen Worker Relationship Specialty Start Date End Date Provider, Unknown UNKNOWN PCP - General 10/12/16
--- OUTSIDE RECORDS SUMMARY | 2024-05-25 12:47 | XMS_ITS | Encounter Summary ---
Author Organization [facility] Address [facility]ly [facility] [place] [address] Care Team Providers Care Roll Form Operator Name Role Phone Viridiana Zaidi NP Primary Care Provider [phone] Encounter Details Date Type Department Care Team (Late st Contact Info) Description 12/01/2022 Sonic[facility] Message Enc [facility] Family [facility] - [place] [address] [facility] [address] [place] [id number] Arnulfo [facility] Provider 1 week f/u Social History Tobacco [...] Info) Description 07/02/2024 12:30 PM CDT Appointment [facility] [place] [phone] Conner Bob MD [facility] [phone] 07/02/2024 1:00 PM CDT Appointment [facility] [address] 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
--- OUTSIDE RECORDS SUMMARY | 2024-05-25 12:47 | XMS_ITS | Data Portability ---
Author Organization [facility] Address [address] [place] [address] Assessment No assessment recorded. Plan of Treatment Reminders Order Date Submit Date Provider Last Modified By Organization Details Last Modified Time Details Appointments None recorded. Lab TSH, serum or plasma 2016 017 [facility] (Lab), [address], [place], [address], 7 07:19:43 CBC 2016 017 [facility] (Lab), [address], [place], [address], 7 18:56:52 lipid panel, serum 2016 017 [facility] (Lab), [address], [place], [address], 7 19:38:55 CMP, serum or plasma 2016 017 [facility] (Lab), [address], [place], [address], 7 19:38:15 HbA1c (hemoglobi n A1c), blood 2016 017 [facility] (Lab), [address], [place], [address], 7 09:22:37 glucose, fingerstic k, blood 2016 017 [email or web address] In-Office Order, Internal Use Only DO Not Attach Compendium DO Not Attach Compendium, Do Not Delete/merge, [id number] 7 15:02:38 HbA1c (hemoglobi n A1c), blood 2016 [facility] (Lab), [address], [place], [address], 7 06:16:52 lipid panel w/ direct LDL, serum 2016 017 [facility] (Lab), [address], [place], [address], 7 20:10:49 BMP, serum or plasma 2016 017 [facility] (Lab), [address], [place], [address], 7 20:10:48 Referral None recorded. Procedures None recorded. Surgeries None recorded. Imaging None recorded. Medication Orders metoprolol tartrate 100 mg tablet 2016 017 [facility] #[id number], [address], [place], [id number], 7 15:02:55 hydrochlor othiazide 25 mg tablet 2016 017 [facility] #35346, [address], [place], [id number], 7 15:02:48 fluoxetine 20 mg capsule 2016 017 [facility] [employer] [facility] #72517, [address] [place], [place], [id number], 7 15:02:47 Como 5 mg-325 mg tablet 2016 017 [facility] #84971, [address] [place], [place], [id number], 7 15:02:38 hydrochlor othiazide 25 mg tablet [address] [facility], [address], [place], [place], [id number], 7 08:12:46 metformin 500 mg tablet 2016 [address] [facility], [address], [place], [place], [id number], 7 08:12:47 metoprolol tartrate 100 mg tablet 2016 017 [facility]35886, [address], [place], [place], [id number], 7 08:12:47 naproxen 500 mg tablet 2016 [address] [facility], [address], [place], [place], [id number], 7 08:12:46 atorvastat in 20 mg tablet 2016 [address] [facility] [facility], [address], [place], [place], [id number], 7 08:12:49 hydrochlor othiazide 25 mg tablet [address] [facility]37176, [address], [place], [place], [id number], 7 12:42:57 metformin 500 mg tablet 2016 017 [facility] #90614, [address], [place], [place], [id number], 7 12:42:58 metoprolol tartrate 100 mg tablet 2016 017 [facility] #53473, [address], [place], [place], [id number], 7 12:42:58 cyclobenza mike 10 mg tablet 2016 017 [facility], [address], [place], [place], [id number], 7 12:42:56 Como 5 mg-325 mg tablet 2016 017 [facility] [employer] [facility] #01197, [address], [place], [place], [id number], 7 12:00:51 atorvastat in 20 mg tablet 2016 017 [facility], [address], [place], [place], [id number], 7 12:42:56 hydrochlor othiazide 25 mg tablet 2016 017 [facility], [address], [place], [place], [id number], 7 15:53:40 metformin 500 mg tablet 2016 017 [facility]649, [address], [place], [place], [id number], 7 15:53:40 metoprolol tartrate 100 mg tablet 2016 017 [facility]3677, [address], [place], [place], [id number], 7 15:53:40 cyclobenza mike 10 mg tablet 2016 017 [facility]96768, [address], [place], [place], [id number], 7 15:53:39 Como 5 mg-325 mg tablet 2016 017 [facility] #45708, [address], [place], [place], [id number], 7 14:47:18 atorvastat in 20 mg tablet 2016 017 [facility] #36465, [address], [place], [place], [id number], 7 15:53:40 penicillin V potassium 500 mg tablet 2017 018 [facility] #11379, [address], [place], [place], [id number], 8 11:01:01 Tylenol-Co deine #3 300 mg-30 mg tablet 2017 018 [facility] #07903, [address], [place], [place], [id number], 8 11:00:55 hydrochlor othiazide 25 mg tablet 2017 018 [facility] [employer] [facility] #79097, [address], [place], [place], [id number], 8 11:01:07 metformin 500 mg tablet 2017 018 [facility] [employer] [facility] #42220, [address], [place], [place], [id number], 8 11:01:06 metoprolol tartrate 100 mg tablet 2017 018 [facility] #48153, [address], [place], [place], [id number], 8 11:01:06 atorvastat in 20 mg tablet 2017 018 [facility] #77980, [address], [place], [place], [id number], 8 11:01:16 Patient TargetsNo targets recorded. Patient Instructions Encounter Date Encounter Id Patient Instructions Last Modified By Organization Details Last Modified Time 08/03/2016 [id number] learning about high blood sugar Not available 08/03/2016 15:18:04 When You Want to Lose Weight: Care Instructions Not available 08/03/2016 15:18:04 back care and preventing injuries: care instructions Not available 08/03/2016 15:18:04 learning about high blood pressure Not available 08/03/2016 15:18:04 08/30/2016 [id number] learning about high blood sugar Not available 08/31/2016 09:35:46 When You Want to Lose Weight: Care Instructions Not available 08/31/2016 09:35:46 back care and preventing injuries: care instructions Not available 08/31/2016 09:35:46 learning about high blood pressure Not available 08/31/2016 09:35:46 high cholesterol : care instructions Not available 08/31/2016 09:35:46 11/04/2016 [id number] When You Want to Lose Weight: Care Instructions Not available 11/04/2016 12:56:56 back care and preventing injuries: care instructions Not available 11/04/2016 12:56:56 learning about high blood pressure Not available 11/04/2016 12:56:56 01/31/2017 [id number] learning about high blood sugar Not available 01/31/2017 17:02:36 When You Want to Lose Weight: Care Instructions Not available 01/31/2017 17:02:36 bronchitis: care instructions Not available 01/31/2017 17:02:36 back care and preventing injuries: care instructions Not available 01/31/2017 17:02:36 learning about high blood pressure Not available 01/31/2017 17:02:36 11/08/2017 [id number] tooth and gum pain: care instructions balbarcha [...] DO Not Attach Compendium, Do Not Delete/merge, [id number] 08/03/2016 15:00:04 08/04/19 17 08/03/2016 CBC WBC 8.0 K/uL 3.4-10 .8 Not Available [facility] (Lab) [address], [place], [address], 08/03/2016 18:56:51 08/04/19 17 08/03/2016 CBC red blood count 3.8 M/uL 4.2-5. 4 low Not Available [facility] (Lab) [address] [place], [address], 08/03/2016 18:56:51 08/04/19 17 08/03/2016 CBC hemoglobin 11.3 g/dL 11.5-1 5.5 low Not Available [facility] (Lab) [address] [place], [address], 08/03/2016 18:56:51 08/04/19 17 08/03/2016 CBC hematocrit 35.3 % 36.0-4 8.0 low Not Available [facility] (Lab) [address] [place], [address], 08/03/2016 18:56:51 08/04/1908/03/2016 CBC MCV 92 fL 80-95 Not Available [facility] (Lab) [address] [place], [address], 08/03/2016 18:56:51 08/04/19 17 08/03/2016 CBC MCHC 32 g/dL 32-36 Not Available [facility] (Lab) [address], [place], [address], 08/03/2016 18:56:51 08/04/19 17 08/03/2016 CBC platelets 359 K/uL 155-37 9 Not Available [facility] (Lab) [address], [place], [address], 08/03/2016 18:56:51 08/04/19 17 08/03/2016 CBC RDW 12.4 % 11.5-1 4.5 Not Available [facility] (Lab) [address], [place], [address], 08/03/2016 18:56:51 08/04/19 17 08/03/2016 CMP, serum or plasm a glucose, serum 92 mg/dL 65-99 Not Available [facility] ([facility]) [address], [place], [address], 08/03/2016 19:38:15 08/04/19 17 08/03/2016 CMP, serum or plasm a BUN 6 mg/dL 8-26 low Not Available [facility] (Lab) [address], [place], [address], 08/03/2016 19:38:15 08/04/19 17 08/03/2016 CMP, serum or plasm a creatinine, serum 0.70 mg/dL 0.50-1 .40 Not Available [facility] (Lab) [address], [place], [address], 08/03/2016 19:38:15 08/04/19 17 08/03/2016 CMP, serum or plasm a BUN/creatnin e ratio 8.6 Not Available [facility] [address], [place], [address], 08/03/2016 19:38:15 08/04/19 17 08/03/2016 CMP, serum or plasm a sodium, serum 139.0 mEq/L 136.0- 144.0 Not Available [facility] (Lab) [address], [place], [address], 08/03/2016 19:38:15 08/04/19 17 08/03/2016 CMP, serum or plasm a potassium, serum 4.0 mmol/ L 3.5-5. 3 Not Available [facility] (Lab) [address], [place], [address], 08/03/2016 19:38:15 08/04/19 17 08/03/2016 CMP, serum or plasm a chloride, serum 99 mmol/ l 101-11 1 low Not Available [facility] (Lab) [address], [place], [address], 08/03/2016 19:38:15 08/04/19 17 08/03/2016 CMP, serum or plasm a carbon dioxide total 25.7 mmol/ L 21.0-3 2.0 Not Available [facility] (Lab) [address], [place], [address], 08/03/2016 19:38:15 08/04/19 17 08/03/2016 CMP, serum or plasm a aniongp 18.0 mmol/ L Not Available [facility] (Lab) [address], [place], [address], 08/03/2016 19:38:15 08/04/19 17 08/03/2016 CMP, serum or plasm a calcium, serum 9.8 mg/dL 8.2-10 .0 Not Available [facility] (Lab) [address], [place], [address], 08/03/2016 19:38:15 08/04/19 17 08/03/2016 CMP, serum or plasm a total protein 8.5 g/dL 6.7-8. 2 high Not Available [facility] (Lab) [address], [place], [address], 08/03/2016 19:38:15 08/04/19 17 08/03/2016 CMP, serum or plasm a albumin, serum 4.6 g/dL 3.5-5. 5 Not Available [facility] (Lab) [address], [place], [address], 08/03/2016 19:38:15 08/04/19 17 08/03/2016 CMP, serum or plasm a agratio 1.2 Not Available [facility] (Lab) [address] [place], [address], 08/03/2016 19:38:15 08/04/19 17 08/03/2016 CMP, serum or plasm a bilt 0.4 mg/dL 0.2-1. 0 Not Available [facility] (Lab) [address] [place], [address], 08/03/2016 19:38:15 08/04/19 17 08/03/2016 CMP, serum or plasm a AST 27.0 U/L 10.0-4 2.0 Not Available [facility] (Lab) [address] [place], [address], 08/03/2016 19:38:15 08/04/19 17 08/03/2016 CMP, serum or plasm a ALT 34.0 U/L 10.0-6 0.0 Not Available [facility] (Lab) [address], [place], [address], 08/03/2016 19:38:15 08/04/19 17 08/03/2016 CMP, serum or plasm a alk phos 93.0 IU/L 42.0-1 21.0 Not Available [facility] (Lab) [address], [place], [address], 08/03/2016 19:38:15 08/04/19 17 08/03/2016 CMP, serum or plasm a osmol 275.0 mOsm/ L 275.0- 301.0 Not Available [facility] (Lab) [address] [place], [address], 08/03/2016 19:38:15 08/04/19 17 08/03/2016 CMP, serum or plasm a eGFR, AM 121 m/lmi n/1.7 3_m >=60 Not Available [facility] (Lab) [address], [place], [address], 08/03/2016 19:38:15 08/04/19 17 08/03/2016 CMP, serum or plasm a eGFR, non- AM 100 mL/mi n/1.7 3/m >=60 Not Available [facility] (Lab) [address], [place], [address], 08/03/2016 19:38:15 08/04/19 17 08/03/2016 lipid panel w/ direc t LDL, serum cholestrol 269.0 mg/dL 140.0- 200.0 high Not Available [facility] (Lab) [address], [place], [address], 08/03/2016 19:38:55 08/04/19 17 08/03/2016 lipid panel w/ direc t LDL, serum triglyceride s 130 mg/mL 150-19 9 low Not Available [facility] (Lab) [address], [place], [address], 08/03/2016 19:38:55 08/04/19 17 08/03/2016 lipid panel w/ direc t LDL, serum HDL cholesterol 62.0 mg/dL 40.0-1 00.0 Not Available [facility] (Lab) [address], [place], [address], 08/03/2016 19:38:55 08/04/19 17 08/03/2016 lipid panel w/ direc t LDL, serum LDL direct 198 mg/dL <=100 high Not Available [facility] ([facility]) [address], [place], [address], 08/03/2016 19:38:55 08/04/1908/03/2016 lipid panel w/ direc t LDL, serum cholhdl 4.30 mg/dL 0.00-4 .98 Not Available [facility] (Lab) [address] [place], [address], 08/03/2016 19:38:55 08/04/19 17 08/04/2016 TSH, serum or plasm a TSH 2.780 uIU/m L 0.450- 4.500 Not Available [facility] (Lab) [address], [place], [address], 08/04/2016 07:19:43 08/04/19 17 08/04/2016 TSH, serum or plasm a T4,free(dire ct) 1.00 NG/dL 0.82-1 .77 Not Available [facility] (Lab) [address], [place], [address], 08/04/2016 07:19:43 08/04/19 17 08/04/2016 HbA1c (hemo globi n A1c), blood hemoglobin A1C 6.5 % 4.8-5. 6 high . Pre-d iabet es: 5.7 - 6.4 Diabe linda: >6.4 Glyce mavis contr ol for adult s with diabe linda: <7.0 Not Available [facility] (Lab) [address], [place], [address], 08/04/2016 09:22:37 11/05/19 17 11/04/2016 BMP, serum or plasm a glucose, serum 98 mg/dL 65-99 Not Available [facility] (Lab) [address], [place], [address], 11/04/2016 20:10:48 11/05/19 17 11/04/2016 BMP, serum or plasm a BUN 8 mg/dL 8-26 Not Available [facility] (Lab) [address] [place], [address], 11/04/2016 20:10:48 11/05/19 17 11/04/2016 BMP, serum or plasm a creatinine, serum 0.70 mg/dL 0.50-1 .40 Not Available [facility] (Lab) [address] [place], [address], 11/04/2016 20:10:48 11/05/19 17 11/04/2016 BMP, serum or plasm a BUN/creatnin e ratio 11.4 Not Available [facility] (Lab) [address], [place], [address], 11/04/2016 20:10:48 11/05/19 17 11/04/2016 BMP, serum or plasm a sodium, serum 141.0 mEq/L 136.0- 144.0 Not Available [facility] (Lab) [address], [place], [address], 11/04/2016 20:10:48 11/05/19 17 11/04/2016 BMP, serum or plasm a potassium, serum 3.9 mmol/ L 3.5-5. 3 Not Available [facility] (Lab) [address], [place], [address], 11/04/2016 20:10:48 11/05/19 17 11/04/2016 BMP, serum or plasm a chloride, serum 99 mmol/ l 101-11 1 low Not Available [facility] (Lab) [address], [place], [address], 11/04/2016 20:10:48 11/05/19 17 11/04/2016 BMP, serum or plasm a carbon dioxide total 28.2 mmol/ L 21.0-3 2.0 Not Available [facility] (Lab) [address], [place], [address], 11/04/2016 20:10:48 11/05/19 17 11/04/2016 BMP, serum or plasm a aniongp 18.0 mmol/ L Not Available [facility] (Lab) [address], [place], [address], 11/04/2016 20:10:48 11/05/19 17 11/04/2016 BMP, serum or plasm a calcium, serum 9.8 mg/dL 8.2-10 .0 Not Available [facility] (Lab) [address] [place], [address], 11/04/2016 20:10:48 11/05/19 17 11/04/2016 BMP, serum or plasm a osmol 280.0 mOsm/ L 275.0- 301.0 Not Available [facility] (Lab) [address] [place], [address], 11/04/2016 20:10:48 11/05/19 17 11/04/2016 BMP, serum or plasm a eGFR, AM 121 m/lmi n/1.7 3_m >=60 Not Available [facility] (Lab) [address] [place], [address], 11/04/2016 20:10:48 11/05/19 17 11/04/2016 BMP, serum or plasm a eGFR, non- AM 100 mL/mi n/1.7 3/m >=60 Not Available [facility] (Lab) [address], [place], [address], 11/04/2016 20:10:48 11/05/19 17 11/04/2016 lipid panel w/ direc t LDL, serum cholestrol 168.0 mg/dL 140.0- 200.0 Not Available [facility] (Lab) [address] [place], [address], 11/04/2016 20:10:49 11/05/19 17 11/04/2016 lipid panel w/ direc t LDL, serum triglyceride s 97 mg/mL 150-19 9 low Not Available [facility] (Lab) [address] [place], [address], 11/04/2016 20:10:49 11/05/19 17 11/04/2016 lipid panel w/ direc t LDL, serum HDL cholesterol 55.0 mg/dL 40.0-1 00.0 Not Available [facility] (Lab) [address] [place], [address], 11/04/2016 20:10:49 11/05/19 17 11/04/2016 lipid panel w/ direc t LDL, serum LDL direct 110 mg/dL <=100 high Not Available [facility] (Lab) [address] [place], [address], 11/04/2016 20:10:49 11/05/19 17 11/04/2016 lipid panel w/ direc t LDL, serum cholhdl 3.10 mg/dL 0.00-4 .98 Not Available [facility] [address], [place], [address], 11/04/2016 20:10:49 11/05/19 17 11/05/2016 HbA1c (hemo globi n A1c), blood hemoglobin A1C 6.6 % 4.8-5. 6 high . Pre-d iabet es: 5.7 - 6.4 Diabe linda: >6.4 Glyce mavis contr ol for adult s with diabe linda: <7.0 Not Available [facility]) [address], [place], [address], 11/05/2016 06:16:52 10/31/19 18 10/30/2017 CBC w/ auto diff WBC 6.4 K/uL 3.4-10 .8 Not Available [facility] (Lab) [address], [place], [address], 10/30/2017 19:21:28 10/31/19 18 10/30/2017 CBC w/ auto diff red blood count 3.8 M/uL 4.2-5. 4 low Not Available [facility] (Lab) [address] [place], [address], 10/30/2017 19:21:28 10/31/19 18 10/30/2017 CBC w/ auto diff hemoglobin 11.6 g/dL 11.5-1 5.5 Not Available [facility] (Lab) [address] [place], [address], 10/30/2017 19:21:28 10/31/19 18 10/30/2017 CBC w/ auto diff hematocrit 35.4 % 36.0-4 8.0 low Not Available [facility] (Lab) [address] [place], [address], 10/30/2017 19:21:28 10/31/19 18 10/30/2017 CBC w/ auto diff MCV 94 fL 80-95 Not Available [facility] (Lab) [address] [place], [address], 10/30/2017 19:21:28 10/31/19 18 10/30/2017 CBC w/ auto diff MCH 31 pg 27-32 Not Available [facility] (Lab) [address] [place], [address], 10/30/2017 19:21:28 10/31/19 18 10/30/2017 CBC w/ auto diff MCHC 33 g/dL 32-36 Not Available [facility] (Lab) [address] [place], [address], 10/30/2017 19:21:28 10/31/19 18 10/30/2017 CBC w/ auto diff platelets 310 K/uL 155-37 9 Not Available [facility] (Lab) [address], [place], [address], 10/30/2017 19:21:28 10/31/19 18 10/30/2017 CBC w/ auto diff RDW 12.6 % 11.5-1 4.5 Not Available [facility] (Lab) [address], [place], [address], 10/30/2017 19:21:28 10/31/19 18 10/30/2017 CBC w/ auto diff MPV 10.7 fL 8.9-12 .7 Not Available [facility] (Lab) [address] [place], [address], 10/30/2017 19:21:28 10/31/19 18 10/30/2017 CBC w/ auto diff neutrophils absolute 2.2 K/uL 1.4-7. 0 Not Available [facility] (Lab) [address] [place], [address], 10/30/2017 19:21:28 10/31/19 18 10/30/2017 CBC w/ auto diff lymphs (absolute) 3.3 K/uL 0.7-3. 1 high Not Available [facility] (Lab) [address] [place], [address], 10/30/2017 19:21:28 10/31/19 18 10/30/2017 CBC w/ auto diff monocytes (absolute) 0.5 K/uL 0.1-0. 9 Not Available [facility] (Lab) [address] [place], [address], 10/30/2017 19:21:28 10/31/19 18 10/30/2017 CBC w/ auto diff eos (absolute) 0.4 K/uL 0.0-0. 4 Not Available [facility] (Lab) [address], [place], [address], 10/30/2017 19:21:28 10/31/19 18 10/30/2017 CBC w/ auto diff baso (absolute) 0.0 K/uL 0.1-0. 3 low Not Available [facility] (Lab) [address], [place], [address], 10/30/2017 19:21:28 10/31/19 18 10/30/2017 CBC w/ auto diff neut % 34.0 % 40.0-7 4.0 low Not Available [facility] (Lab) [address] [place], [address], 10/30/2017 19:21:28 10/31/19 18 10/30/2017 CBC w/ auto diff lymphs % 52.1 % 14.0-4 6.0 high Not Available [facility] (Lab) [address] [place], [address], 10/30/2017 19:21:28 10/31/19 18 10/30/2017 CBC w/ auto diff mono % 7.1 % 4.0-12 .0 Not Available [facility] (Lab) [address] [place], [address], 10/30/2017 19:21:28 10/31/19 18 10/30/2017 CBC w/ auto diff eos % 6 % <=5 high Not Available [facility] [address], [place], [address], 10/30/2017 19:21:28 10/31/19 18 10/30/2017 CBC w/ auto diff baso % 0.3 % 0.1-1. 1 Not Available [facility] (Lab) [address], [place], [address], 10/30/2017 19:21:28 10/31/19 18 10/30/2017 lipid panel w/ direc t LDL, serum cholestrol 165.0 mg/dL 140.0- 200.0 Not Available [facility] (Lab) [address], [place], [address], 10/30/2017 19:42:01 10/31/19 18 10/30/2017 lipid panel w/ direc t LDL, serum triglyceride s 139 mg/dL <=150 Not Available [facility] (Lab) [address], [place], [address], 10/30/2017 19:42:01 10/31/19 18 10/30/2017 lipid panel w/ direc t LDL, serum HDL cholesterol 50.0 mg/dL 40.0-1 00.0 Not Available [facility] (Lab) [address], [place], [address], 10/30/2017 19:42:01 10/31/19 18 10/30/2017 lipid panel w/ direc t LDL, serum LDL direct 107 mg/dL <=100 high Not Available [facility] ([facility]) [address], [place], [address], 10/30/2017 19:42:01 10/31/19 18 10/30/2017 lipid panel w/ direc t LDL, serum cholhdl 3.30 mg/dL 0.00-4 .98 Not Available [facility] (Lab) [address] [place], [address], 10/30/2017 19:42:01 10/31/19 18 10/30/2017 CMP, serum or plasm a glucose, serum 90 mg/dL 65-99 Not Available [facility] (Lab) [address], [place], [address], 10/30/2017 19:42:06 10/31/19 18 10/30/2017 CMP, serum or plasm a BUN 8 mg/dL 8-26 Not Available [facility] (Lab) [address], [place], [address], 10/30/2017 19:42:06 10/31/19 18 10/30/2017 CMP, serum or plasm a creatinine, serum 0.70 mg/dL 0.50-1 .40 Not Available [facility] (Lab) [address], [place], [address], 10/30/2017 19:42:06 10/31/19 18 10/30/2017 CMP, serum or plasm a BUN/creatnin e ratio 11.4 Not Available [facility] (Lab) [address], [place], [address], 10/30/2017 19:42:06 10/31/19 18 10/30/2017 CMP, serum or plasm a sodium, serum 139.0 mEq/L 136.0- 144.0 Not Available [facility] (Lab) [address], [place], [address], 10/30/2017 19:42:06 10/31/19 18 10/30/2017 CMP, serum or plasm a potassium, serum 4.6 mmol/ L 3.5-5. 3 Not Available [facility] (Lab) [address], [place], [address], 10/30/2017 19:42:06 10/31/19 18 10/30/2017 CMP, serum or plasm a chloride, serum 102 mmol/ l 101-11 1 Not Available [facility] (Lab) [address] [place], [address], 10/30/2017 19:42:06 10/31/19 18 10/30/2017 CMP, serum or plasm a carbon dioxide total 25.9 mmol/ L 21.0-3 2.0 Not Available [facility] (Lab) [address], [place], [address], 10/30/2017 19:42:10/31/19 18 10/30/2017 CMP, serum or plasm a aniongp 16.0 mmol/ L Not Available [facility] (Lab) [address], [place], [address], 10/30/2017 19:42:10/31/19 18 10/30/2017 CMP, serum or plasm a calcium, serum 10.1 mg/dL 8.2-10 .0 high Not Available [facility] (Lab) [address], [place], [address], 10/30/2017 19:42:10/31/19 18 10/30/2017 CMP, serum or plasm a total protein 8.0 g/dL 6.7-8. 2 Not Available [facility] (Lab) [address], [place], [address], 10/30/2017 19:42:10/31/19 18 10/30/2017 CMP, serum or plasm a albumin, serum 4.5 g/dL 3.5-5. 5 Not Available [facility] (Lab) [address] [place], [address], 10/30/2017 19:42:10/31/19 18 10/30/2017 CMP, serum or plasm a agratio 1.3 Not Available [facility] (Lab) [address] [place], [address], 10/30/2017 19:42:10/31/19 18 10/30/2017 CMP, serum or plasm a bilt 0.3 mg/dL 0.2-1. 0 Not Available [facility] (Lab) [address] [place], [address], 10/30/2017 19:42:06 10/31/19 18 10/30/2017 CMP, serum or plasm a AST 21.0 U/L 10.0-4 2.0 Not Available [facility] (Lab) [address] [place], [address], 10/30/2017 19:42:06 10/31/19 18 10/30/2017 CMP, serum or plasm a ALT 23.0 U/L 10.0-6 0.0 Not Available [facility] (Lab) [address] [place], [address], 10/30/2017 19:42:06 10/31/19 18 10/30/2017 CMP, serum or plasm a alk phos 87.0 IU/L 42.0-1 21.0 Not Available [facility] (Lab) [address] [place], [address], 10/30/2017 19:42:06 10/31/19 18 10/30/2017 CMP, serum or plasm a osmol 275.0 mOsm/ L 275.0- 301.0 Not Available [facility] (Lab) [address] [place], [address], 10/30/2017 19:42:06 10/31/19 18 10/30/2017 CMP, serum or plasm a eGFR, AM 120 m/lmi n/1.7 3_m >=60 Not Available [facility] (Lab) [address] [place], [address], 10/30/2017 19:42:06 10/31/19 18 10/30/2017 CMP, serum or plasm a eGFR, non- AM 99 mL/mi n/1.7 3/m >=60 Not Available [facility] (Lab) [address] [place], [address], 10/30/2017 19:42:06 10/31/19 18 10/30/2017 TSH, serum or plasm a TSH 2.25 uIU/m L 0.50-4 .50 Not Available [facility] (Lab) [address] [facility] [place], [address], 10/30/2017 20:06:36 10/31/19 18 10/31/2017 HbA1c (hemo globi n A1c), blood hemoglobin A1C 5.9 % 4.8-5. 6 high . Pre-d iabet es: 5.7 - 6.4 Diabe linda: >6.4 Glyce mavis contr ol for adult s with diabe linda: <7.0 Not Available [facility] (Lab) [address] [facility], [place], [address], 10/31/2017 07:10:00 10/31/19 18 10/31/2017 T4, total , serum thyroxine T4 6.8 ug/dL 4.5-12 .0 Not Available [facility] (Lab) [address] [facility], [place], [address], 10/31/2017 10:11:05 11/22/19 17 11/19/2016 imagi ng/di agnos tic resul t No observ ation record ed. [facility] (Imaging) [address], [place], [address], 01/31/2017 15:40:59 12/07/19 17 imagi ng/di agnos tic resul t No observ ation record ed. [facility] Not Available 2016 15:40:59 02/26/20 18 02/25/2018 CT, abdom en + pelvi s, w/ contr ast No observ [facility]ion [facility] ed. [facility] 2017 13:14:24 Result Notes None recorded. Problems Name Problem SNOMED Code Status Onset Date Resolution Date Notes Provider Name and Address Organization Details Recorded Time Essential hypertension 14450786 Active Farhad Fuchs MD Attn: Louie beckwith,[address] [place], [address], [facility] 6 17:37:32 Low back pain 057627726 Active Farhad Fuchs MD Attn: Louie beckwith,[address] [facility], [place], [address], [facility] 6 17:37:32 Macromastia 976062127 Active Farhad Fuchs MD Attn: Louie beckwith,[address] [facility], [place], [address], [facility] 6 17:37:32 Obesity 255170425 Active 2016 Carson Benavides MD Attn: Louie beckwith,[address] [facility], [place], [address], [facility] 7 14:52:44 Hyperglycemia 38995192 Active 2016 Carson Benavides MD Attn: Louie beckwith,[address] [facility], [place], [address], [facility] 7 15:44:21 Problem Notes None recorded. Procedures Surgical History None recorded. Imaging Results Imaging Date Name Status LastModified by Organiz ation Details LastModified Time 11/19/2016 imaging/diagn ostic result completed [facility] (Imaging) [address], [place], [address], 01/31/2017 15:40:59 12/06/2016 imaging/diagn ostic result completed [facility] Information not available 01/31/2017 15:40:59 02/25/2018 CT, abdomen + pelvis, w/ contrast completed [facility] Information not available 02/27/2018 13:14:24 Procedure Notes [...] Not Available Not Available Not Available fluoxetine hcl 20 mg caps active [...] Not Available Not Available N ot Available metoprolol tab 100mg ermetoprolo l succinate er active Not Available Not Available Not Available losartan/hc t tab 100-25losar nagel potassium/h ydrochlorot hiazide 01/31 completed Not Available Not Available Not Available metoprolol tab 50mg ermetoprolo l succinate er active Not Available Not Available Not Available penicilln vk tab 500mgpenici llin v potassium active Not Available Not Available No t Available ondansetron tab 4mgondanset kishan hcl active Not Available Not Available Not Available guaiatussin syp acguaiatuss in ac active Not Available Not Available Not Available ventolin hfa aerventolin hfa active Not [...] Not Available Not Available No t Available hydroco/apa p tab 5-325mghydr ocodone/yamileth taminophen active Not Available Not Available N ot Available cyclobenzap r tab 10mgcyclobe nzaprine hcl [...] Updated DateTime 8 157.48 cm 34.4 kg/m2 04490.3 7 g 76 /min 20 /min 98.5 [degF] 110 mm[Hg] 88 mm[Hg] José Miguel Rosen MA [facility] 8 10:37:37 Date Recorded Body weight Body height Body mass index (BMI) Heart rate Respiratory rate Body temperature Systolic blood pressure Diastolic blood pressure Provider Name and Address Organization Details Last Updated DateTime 7 51368.0 7 g 157.48 cm 36.8 kg/m2 76 /min 20 /min 98 [degF] 140 mm[Hg] 100 mm[Hg] José Miguel Rosen MA [facility] 7 14:38:39 Date Recorded Body height Body weight Body mass index (BMI) Heart rate Respiratory rate Systolic blood pressure Diastolic blood pressure Provider Name and Address Organization Details Last Updated DateTime 7 157.48 cm 03640.4 7 g 36.6 kg/m2 80 /min 24 /min 130 mm[Hg] 100 mm[Hg] José Miguel Rosen MA [facility] 7 17:19:17 Date Recorded Body height Body mass index (BMI) Body weight Heart rate Respiratory rate Body temperature Systolic blood pressure Diastolic blood pressure Provider Name and Address Organization Details Last Updated DateTime 7 157.48 cm 35.5 kg/m2 18306.9 2 g 76 /min 20 /min 98.1 [degF] 120 mm[Hg] 88 mm[Hg] Justinguerazoësanthosh RosenHUMBLE yu [facility] 7 12:22:51 Date Recorded Body height Body mass index (BMI) Body weight Heart rate Respiratory rate Body temperature Systolic blood pressure Diastolic blood pressure Provider Name and Address Organization Details Last Updated DateTime 7 157.48 cm 35.8 kg/m2 84355.1 g 76 /min 20 /min 98.3 [degF] 130 mm[Hg] 100 mm[Hg] José Miguel Rosen MA [facility] 7 15:31:42 Social History None recorded. Functional Status None recorded. Mental Status None recorded. Family History Nothing Reported. Medical History No medical history recorded. Gynecological HistoryNo gynecological history recorded. Obstetrics History GPAL:G 0 P 0 0 0 0 Past Encounters Encounter ID Performer Location Encounter Start Date Encounter Closed Date Diagnosis/Indication Diagnosis SNOMED-CT Code Diagnosis ICD10 Code Diagnosis Note [id number] Ophelia Emery LPN [facility] (Adult/Fa m Med) [address] [place] [phone] 07/24/2014 13:56:05 07/24/2014 17:56:19 Essential hypertension 18949902 Low back pain 316546193 [id number] Paulina Anaya [facility] (Adult/Fa m Med) [address] [place] [address] 02/02/2015 10:57:57 02/03/2015 10:59:32 Essential hypertension 79629211 I10 Low back pain 623421479 M54.5 [id number] Columba [facility] (Adult/Fa m Med) [address] [place] [address] 02/11/2015 15:18:29 02/11/2015 18:05:07 Essential hypertension 16540103 I10 Low back pain 296732021 M54.5 [id number] Columba Crooks [facility] (Adult/Fa m Med) [address] [place] [phone] 03/30/2015 16:24:13 03/31/2015 16:59:15 Essential hypertension 74571860 I10 Low back pain 506582201 M54.5 [id number] Paulina Anaya [facility] (Adult/Fa m Med) [address] [place] [address] 05/13/2015 15:36:43 05/15/2015 15:22:39 Essential hypertension 11819210 I10 Low back pain 321435231 M54.5 Macromastia 448686452 N6 2 [id number] aCrson Benavides MD [facility] (Adult/Fa m Med) [address] [place] [address] 08/03/2016 14:25:28 08/04/2016 08:56:28 Low back pain 034606240 M54.5 continue meds. may needs MRIcan not take NSAIDs or Tramadol? Essential hypertension 22566974 I10 controlled Obesity 721514808 E66.9 diet/exerc ises. Hyperglycemia 92022713 R 73.9 on metformin but is reluctant to take it. asking for labs. [id number] Carson Benavides MD [facility] (Adult/Fa m Med) [address] [place] [address] 08/30/2016 16:10:24 08/31/2016 09:54:10 Obesity 054200302 E66.9 diet/exerc ises. Low back pain 707936063 M54.5 continue meds. prn Vicodin. Macromastia 365164782 N6 2 supposed to have reduction surgery in November Essential hypertension 35758681 I10 controlled Hyperglycemia 09476704 R 73.9 on metformin but is reluctant to take it.repeate d labs showed HgA1C 6.5--> restart metformin 500 mg po BID/ diet/exerc ises.had glucometer at home. Hyperlipidemia 88079845 E78.5 LDL 147 [id number] Carson Benavides MD [facility] (Adult/Fa m Med) [address] [place] [phone] 11/04/2016 12:08:27 11/08/2016 09:55:49 Obesity 663850169 E66.9 diet/exerc ises. Low back pain 224174314 M54.5 continue meds. prn Vicodin. Essential hypertension 32486311 I10 controlled Macromastia 121906776 N6 2 supposed to have reduction surgery in November Hyperlipidemia 74372065 E78.5 LDL 198 Hyperglycemia 27045916 R 73.9 on metformin. repeat labs [id number] Carson Benavides MD [facility] (Adult/Fa m Med) [address] [place] [address] 01/31/2017 15:26:15 02/01/2017 16:03:17 Obesity 861615259 E66.9 diet/ exercises. Low back pain 182000900 M54.5 continue meds. Macromastia 964918345 N6 2 had reduction surgery Essential hypertension 22697717 I10 controlled Bronchitis 53173374 J40 OTC meds. Hyperglycemia 37709997 R 73.9 Hga1C 6.5--> 6.6on metformin. Hyperlipidemia 38089349 E78.5 LDL is better [id number] Carson Benavides MD [facility] (Adult/Fa m Med) [address] [place] [address] 11/08/2017 10:13:35 11/08/2017 13:55:10 Obesity 173630376 E66.9 diet/ exercises. Low back pain 026784816 M54.5 continue meds. Essential hypertension 82512383 I10 controlled Hyperlipidemia 46744219 E78.5 LDL is better Hyperglycemia 62568923 R 73.9 Hga1C 6.5--> 6.6 --> 5.9on metformin. 1/2 tab po bid Toothache 56062943 K08.8 9 Health Concerns Section Related Observation LastModified by Organization Detai ls LastModified Time None Recorded Concern Status LastModified by Organization Details LastModified Time None Recorded Advance Directives Directive None Recorded Payers Encounter Date Sequence Insurance Name Policy Number Policy Rivera Covered Member ID Rivera Member ID Guarantor Name 08/03/2016 1 [facility] (MEDICAID HMO) [id number] Johanna Dominguez [id number] Roshonda Estela 08/30/2016 1 [facility] (MEDICAID HMO) [id number] Johanna Dominguez [id number] Roshonda [place] 11/04/2016 1 [facility] (MEDICAID HMO) [id number] 0003 Roshonda Zechariah Dominguez [id number] Roshonda [place] 01/31/2017 1 [facility] (MEDICAID HMO) [id number] 0003 Roshonda L Dominguez [id number] Roshonda [place] 11/08/2017 1 [facility] (MEDICAID HMO) [id number] 0003 Rohinihonda Zechariah Dominguez [id number] Roshonda [place] Notes Date Note Type Note Provider Name and Address Organization Details Recorded Time 08/03/2016 text/html no complaints Carson Benavides MD Attn: Accounting,[address] [place], [address], [facility] 08/03/2016 15:03:27 08/30/2016 text/html left foot pain after trauma/ fractured toe Carson Benavides MD Attn: Accounting,[address] [place], [address], [facility] 08/31/2016 08:13:13 11/04/2016 text/html no new complaints Carson Benavides MD Attn: Accounting,[address] [place], [address], [facility] 11/04/2016 12:43:17 01/31/2017 text/html no new complaints Carson Benavides MD Attn: Accounting,[address] [place], [address], [facility] 01/31/2017 15:56:04 11/08/2017 text/html no new complaints Carson Benavides MD Attn: Accounting,[address] [place], [address], [facility] 11/08/2017 11:01:30 OBGyn Episode No OBEpisode recorded.
--- OUTSIDE RECORDS SUMMARY | 2024-05-25 12:47 | XMS_ITS | Encounter Summary ---
Author Organization [facility] Address [address] [place] [address] Care Team Providers Care Senior Java Software Developer Name Role Phone Viridiana Zaidi PROMOTIONAL MARKETING ANALYST Primary Care Provider [phone] Reason for Visit * Reason Comments Colonoscopy Report (SCAN) Encounter Details Date Type Department Care Team (Late Contact Info) Description 05/23/2024 Scan HEALTH INFO SRVCS Scanned, Doc Med Group Colonoscopy Report (SCAN) Social History Tobacco Use Types Packs/Day Years [...] Info) Description 07/02/2024 12:30 PM CDT Appointment [facility] [address] [place], [place] [phone] Conner Bob MD [address] [place] [phone] 07/02/2024 1:00 PM CDT Appointment [facility] [address] Conner Bob MD [address] [facility] [address] [place] [address] documented as of this encounter Procedures Procedure Name Priority Date/Time Associated Diagnosis Comments COLONOSCOPY GENERIC (SCAN ORDER) 05/23/2024 documented in this encounter Results * COLONOSCOPY GENERIC (SCAN ORDER) (05/23/2024) 05/23/2024 us [facility] Scanned SCANNING Final Resu lt documented in this encounter Visit Diagnoses Not on filedocumented in this encounter Additional Health Concerns Infection Onset Date Last Indicated Resolved Time 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
--- OUTSIDE RECORDS SUMMARY | 2024-05-25 12:47 | XMS_ITS | Clinical Summary ---
Author Organization [facility] [address] Address [address] [place] [address] Care Team Providers Care Bad Work Gatherer Name Role Phone Unavailable Primary Care Provider [...] Department Care Team Description 04/02/2024 4:30 PM ACCESS SPECIALIST Telephone Check Up [facility] [address] [address] [place] [address] Nils De Oliveira MD Chronic anemia (Primary Dx); Lymphocytosis 03/26/2024 External Device Data STL ABSTRACTION Provider, Abstract 03/26/2024 Orders Only [facility] [address] [place] [address] Nils De Oliveira MD 03/20/2024 Orders Only [facility] [address] [place] [address] Nils De Oliveira MD 03/19/2024 1:30 PM ACCESS SPECIALIST Office Visit [facility] [address] [place] [address] Nils De Oliveira MD Chronic [...] Comments Blood Pressure 133/92 03/19/2024 1:15 PM ACCESS SPECIALIST Pulse 83 03/19/2024 1:13 PM ACCESS SPECIALIST Temperature 36.8 C (98.2 F) 03/19/2024 1:13 PM ACCESS SPECIALIST Respiratory Rate 16 03/19/2024 1:13 PM ACCESS SPECIALIST Oxygen Saturation 97% 03/19/2024 1:13 PM ACCESS SPECIALIST Inhaled Oxygen Concentration - - Weight 89.3 kg (196 lb 12.8 oz) 03/19/2024 1:13 PM ACCESS SPECIALIST Height 157.5 cm (5' 2 ) 03/19/2024 1:13 PM ACCESS SPECIALIST Body Mass Index 36 03/19/2024 1:13 PM ACCESS SPECIALIST Plan of Treatment Upcoming Encounters Date Type Department Care Team (Late st Contact Info) Description 07/05/2024 12:15 PM CDT Office Visit [facility] [address] [place] [address] Nils De Oliveira MD [address] [place] [address] Health Maintenance Due Date Last [...] TO HGB ID Routine 03/19/2024 2:53 PM ACCESS SPECIALIST TRANSFERRIN RECEPTOR TFR SOLUBLE Routine 03/19/2024 2:36 PM ACCESS SPECIALIST COMPREHENSIVE METABOLIC PANEL Routine 03/19/2024 1:55 PM ACCESS SPECIALIST from Last 3 Months Results * SICKLE CELL SCREEN W/ REFLEX TO HGB ID (03/19/2024 2:53 PM ACCESS SPECIALIST) Blood us Provider Scanning HEMATOLOGY ORDERABLES COM Ann l Result * TRANSFERRIN RECEPTOR TFR SOLUBLE (03/19/2024 2:36 PM ACCESS SPECIALIST) Blood us Nils De Oliveira MD CHEMISTRY ORDERABLES Final Resu lt * COMPREHENSIVE METABOLIC PANEL (03/19/2024 1:55 PM ACCESS SPECIALIST) Blood us Nils De Oliveira MD CHEMISTRY ORDERABLES Final Resu lt from Last [address] [facility] [id number]
--- OUTSIDE RECORDS SUMMARY | 2024-05-25 12:47 | XMS_ITS | Encounter Summary ---
Author Organization [facility] Address [facility] [place] [address] Care Team Providers Care Chief Of Staff Doctor Name Role Phone Viridiana Zaidi NP Primary Care Provider [phone] Encounter Details Date Type Department Care Team (Late st Contact Info) Description 01/04/2023 Probki Iz okna Message Enc [facility] - [place] [address] [facility] [address] [place] [id number] [place], [facility] Provider Reply from Viridiana Social History [...] PM CDT Appointment [facility] [place] [address] Conner Bob MD [address] [phone] 07/02/2024 1:00 PM CDT Appointment [facility] [address] [place] [address] Conner Bob MD [address] [facility] [address] [place] [address] documented as of this encounter Visit Diagnoses Not on filedocumented in this encounter Additional Health Concerns Infection Onset Date Last Indicated Resolved Time MRSA 11/21/2016 11/21/2016 documented as of this encounter Care Teams Chief Of Staff Doctor Relationship Specialty Start Date End Date Viridiana Zaidi NP [address] [place] [address] PCP - General NURSE PRACTITIONER 06/17/21 documented as of this encounter
--- OUTSIDE RECORDS SUMMARY | 2024-05-25 12:47 | XMS_ITS | Clinical Summary ---
Author Organization [facility] [email or web address] Address [address] [facility] [place] [address] Care Team Providers Care Manager Mechanical Name Role Phone Farhad Fuchs MD Primary Care Provider [phone] Source Comments [facility],non-owned Affiliates and Associated Physician Practices is amultiple site organization consisting of ambulatory clinics and hospital sitesin [place], [place] and [place]. This disclosure is being madepursuant to the Care Everywhere program and may not contain all information available regarding this patient. Last updated 18.[facility] [email or web address] Allergies Active Allergy Reactions Criticality Noted Date [...] Comments Blood Pressure 128/76 03/09/2022 10:42 AM RECORDS TECH Pulse 82 01/08/2016 7:54 AM CDT Temperature 36.6 C (97.8 F) 03/09/2022 10:42 AM RECORDS TECH Respiratory Rate 16 01/08/2016 7:54 AM CDT Oxygen Saturation 100% 01/08/2016 7:54 AM CDT Inhaled Oxygen Concentration - - Weight 85.1 kg (187 lb 9.6 oz) 03/09/2022 10:42 AM RECORDS TECH Height 157.5 cm (5' 2 ) 03/09/2022 10:42 AM RECORDS TECH Body Mass Index 34.31 03/09/2022 10:42 AM RECORDS TECH Plan of Treatment Health Maintenance Due Date [...] - 106 mg/dL 01/08/2016 5:06 AM CDT [facility] Sodium 139 136 - 145 mmol/L 01/08/2016 5:06 AM CDT [facility] Potassium 3.8 3.5 - 5.1 mmol/L 01/08/2016 5:06 AM CDT [facility] Chloride 104 98 - 107 mmol/L 01/08/2016 5:06 AM CDT [facility] CO2 28 22 - 31 mmol/L 01/08/2016 5:06 AM CDT [facility] Calcium 8.9 8.5 - 10.1 mg/dL 01/08/2016 5:06 AM CDT [facility] Anion Gap 7 5 - 20 [...] Michaela Winters MD LAB - CHEMISTRY ORDERABLES [facility] [address] [place] [address] from Last 3 Months or Most Recently Relevant to Health Maintenance Advance Directives * Full Code (Latest Code Status on File) Date Activated Date Inactivated Comments 01/07/2016 7:16 PM 01/08/2016 12:15 PM * Full Code Date Activated Date Inactivated Comments 01/07/2016 3:44 PM 01/07/2016 7:16 PM Care Teams Manager Mechanical Relationship Specialty Start Date End Date Farhad Fuchs MD PCP - General 01/15/18
--- OUTSIDE RECORDS SUMMARY | 2024-05-25 12:47 | XMS_ITS | Patient Health Summary ---
Author Organization [facility] Address [address] [place] [address] Care Team Providers Care Maintenance Dispatcher Name Role Phone Farhad Fuchs MD Primary Care Provider [phone] Note from [facility],non-owned Affiliates and Associated Physician Practices is amultiple site organization consisting of ambulatory clinics and hospital sitesin [place], [place], [place] and [place]. This disclosure is being madepursuant to the Care Everywhere program and may not contain all information available regarding this patient. Last updated 18.[facility] Allergies * Lisinopril(Swelling) Medications * Be aware [...] Comments Blood Pressure 128/76 03/09/2022 10:42 AM DIE FINISHER FORGING Pulse 82 01/08/2016 7:54 AM CDT Temperature 36.6 C (97.8 F) 03/09/2022 10:42 AM DIE FINISHER FORGING Respiratory Rate 16 01/08/2016 7:54 AM CDT Oxygen Saturation 100% 01/08/2016 7:54 AM CDT Inhaled Oxygen Concentration - - Weight 85.1 kg (187 lb 9.6 oz) 03/09/2022 10:42 AM DIE FINISHER FORGING Height 157.5 cm (5' 2 ) 03/09/2022 10:42 AM DIE FINISHER FORGING Body Mass Index 34.31 03/09/2022 10:42 AM DIE FINISHER FORGING Procedures * URINALYSIS AUTO - POINT OF [...] POINT OF CARE (AMB) [facility] (03/09/2022) Pathologist [facility] Glucose UA neg Bilirubin UA POCT neg Ketones UA POCT neg Specific [place] UA 1.020 Blood Urine POCT neg pH UA 6.0 Protein UA neg Urobilinogen UA 0.2 Nitrite UA neg WBC UA neg Urine URINE / Unknown 03/09/2022 Bertram Graves MD LAB - POINT OF CARE ORDERABLES * CULTURE URINE (03/09/2022) Pathologist [facility] Culture [facility]ST Comment: CULTURE, URINE, ROUTINE Micro Number: [id number] Test Status: Final Specimen Source: Urine clean Specimen Quality: Adequate Result: No Growth Test Performed at: [address] [id number] JAMES QUEEN MD Urine URINE SPECIMEN OBTAINED BY CLEAN CATCH PROCEDURE / Unknown 03/09/2022 03/10/2022 1:50 AM DIE FINISHER FORGING Bertram Graves MD LAB - MICROBIOLOGY O RDERABLES [address] [address] * CARDIAC RHYTHM STRIP ORDER (01/12/2016 10:26 PM CDT) Narrative 01/12/2016 10:26 PM CDT Ordered by an unspecified provider. Scanned Document CARDIAC SERVICES ORD ERABLES * CARDIAC EKG ORDER (01/09/2016 9:42 PM CDT) Narrative 01/09/2016 9:42 PM CDT Ordered by an unspecified provider. Scanned Document CARDIAC SERVICES ORD ERABLES * ECHOCARDIOGRAM 2D WITH DOPPLER (01/08/2016 9:37 AM CDT) 01/08/2016 9:37 AM CDT Narrative [facility] - 01/08/2016 1:57 PM CDT [facility] [address] [place] [id number] Transthoracic Echocardiogram 2D, M-mode, Doppler, and Color Doppler Patient: JOHANNA PALMER MR number: [id number] Height: 62 in Weight: 184 lb BSA: 1.85 m Study date: 08-Jan-2016 : 1975 Age: 40 years Gender: Female Race: Black Diagnoses: R41.82 - Altered mental status, unspecified Reading Physician: Bob Marie MD Referring Physician: Mcihaela Winters M.D ELECTRICAL CALIBRATOR: Kamar Salinas. [facility] Cardiology Group: [facility] Student: Rhys Rowe Summary: - Clinical [...] Procedure: The study was performed in the [facility]. This was a routine study. Room 753 [...] MV A Marquez: 0.6 m/s MV Dec Doddridge: 3.9 m/s2 MV E Marquez: 0.8 m/s MV E/A Ratio: 1.3 RVSP: 41.6 mmHg Septal e': 0.1 m/s Prepared and signed by Bob Marie MD Signed 08-Jan-2016 13:56:26 Procedure Note Bob Marie MD - 01/08/[address] [address] Transthoracic Echocardiogram 2D, M-mode, Doppler, and Color Doppler Patient: JOHANNA PALMER MR number: [id number] Height: 62 in Weight: 184 lb BSA: 1.85 m Study date: 08-Jan-2016 : 1975 Age: 40 years Gender: Female Race: Black Diagnoses: R41.82 - Altered mental status, unspecified Reading Physician: Bob Marie MD Referring Physician: Michaela Winters M.D ELECTRICAL CALIBRATOR: Kamar Salinas. [facility] Cardiology Group: [facility] Student: Rhys Rowe Summary: - Clinical [...] Procedure: The study was performed in the [facility]. This was a routine study. Room 753 [...] MV A Marquez: 0.6 m/s MV Dec Doddridge: 3.9 m/s2 MV E Marquez: 0.8 m/s MV E/A Ratio: 1.3 RVSP: 41.6 mmHg Septal e': 0.1 m/s Prepared and signed by Bob Marie MD Signed 08-Jan-2016 13:56:26 Michaela Winters MD ECHO ORDERABLES [facility] * (ABNORMAL) GLUCOSE - POINT OF CARE (01/08/2016 7:28 AM CDT) Only the most recent of3 resultswithin the time period is included. Glucose WB/POC 137(H) 70 - 106 mg/dL 01/08/2016 8:13 AM CDT [facility] Blood BLOOD SPECIMEN / Unknown 01/08/2016 7:28 AM CDT 01/08/2016 8:13 AM CDT Nadira Muhammad MD LAB - POINT OF CARE ORDERABLES [facility] [address] [place] [id number] * BASIC METABOLIC PANEL (CALCIUM TOTAL) (01/08/2016 4:02 AM CDT) Only the most recent of2 resultswithin the time period is included. Glucose 95 74 - 106 mg/dL 01/08/2016 5:06 AM CDT [facility] Sodium 139 136 - 145 mmol/L 01/08/2016 5:06 AM CDT [facility] Potassium 3.8 3.5 - 5.1 mmol/L 01/08/2016 5:06 AM CDT [facility] Chloride 104 98 - 107 mmol/L 01/08/2016 5:06 AM CDT [facility] CO2 28 22 - 31 mmol/L 01/08/2016 5:06 AM CDT [facility] Calcium 8.9 8.5 - 10.1 mg/dL 01/08/2016 5:06 AM T [facility] Anion Gap 7 5 - 20 mmol/L 01/08/2016 5:06 AM CDT [facility] BUN 12 7 - 21 mg/dL 01/08/2016 5:06 AM CDT [facility] Creatinine 0.95 0.50 - 1.30 mg/dL 01/08/2016 5:06 AM T [facility] eGFR by MDRD >60 >60 mL/min/1.7 3m2 01/08/2016 5:06 AM CDT [facility] eGFR by MDRD >60 >60 mL/min/1.7 3m2 01/08/2016 5:06 AM CDT [facility] Blood BLOOD SPECIMEN / Unknown 01/08/2016 4:02 AM CDT 01/08/2016 4:35 AM CDT Michaela Winters MD LAB - CHEMISTRY ORDERABLES [facility] [address] [place] [address] * (ABNORMAL) URINALYSIS ROUTINE W/REFLEX TO CULTURE (01/07/2016 1:32 PM CDT) Color UA Yellow Straw, Yellow, Dark Yellow 01/07/2016 1:44 PM CDT [facility] Clarity UA Clear 01/07/2016 1:44 PM CDT [facility] Specific [place] UA >1.030(H) 1.005 - 1.030 01/07/2016 1:44 PM CDT [facility] pH UA 5.5 5.0 - 8.0 pH 01/07/2016 1:44 PM CDT [facility] Protein UA Negative Negative 01/07/2016 1:44 PM CDT [facility] Blood UA Negative Negative 01/07/2016 1:44 PM CDT [facility] Leukocyte UA Negative Negative 01/07/2016 1:44 PM CDT [facility] Nitrite UA Negative Negative 01/07/2016 1:44 PM CDT [facility] Glucose UA Negative Negative 01/07/2016 1:44 PM CDT [facility] Ketone UA Negative Negative 01/07/2016 1:44 PM CDT [facility] Bilirubin UA Negative Negative 01/07/2016 1:44 PM CDT [facility] Urobilinogen UA 0.2 0.1 - 1.0 EU/dL 01/07/2016 1:44 PM CDT [facility] Reflex Status Culture not indicated 01/07/2016 1:44 PM CDT [facility] Urine URINE SPECIMEN OBTAINED BY CLEAN CATCH PROCEDURE / Unknown 01/07/2016 1:32 PM CDT 01/07/2016 1:39 PM CDT Michaela Winters MD LAB - URINALYSIS ORDERABLES Performing Organization Address City/[facility]/ZIP Co de Phone Number [facility] [address] [place] [address] * HCG URINE QUALITATIVE (01/07/2016 1:32 PM CDT) [facility] hCG Qualitative Urine Negative Negative 01/07/2016 3:05 PM CDT [facility] Urine URINE / Unknown 01/07/2016 1:32 PM CDT 01/07/2016 2:55 PM CDT Michaela Winters MD LAB - URINALYSIS ORDERABLES Performing Organization Address [facility] de Phone Number [facility] [id number] [place] [address] * DRUG SCREEN TOX URINE PANEL (01/07/2016 1:32 PM CDT) [facility] Amphetamines Screen Urine Not Detected Not Detected 01/07/2016 1:51 PM CDT [facility] Barbiturates Screen Urine Not Detected Not Detected 01/07/2016 1:51 PM CDT [facility] Benzodiazepines Screen Urine Not Detected Not Detected 01/07/2016 1:51 PM CDT [facility] Cannabinoids Screen Urine Not Detected Not Detected 01/07/2016 1:51 PM CDT [facility] Cocaine Screen Urine Not Detected Not Detected 01/07/2016 1:51 PM CDT [facility] Methadone Screen Urine Not Detected Not Detected 01/07/2016 1:51 PM CDT [facility] Opiate Screen Urine Not Detected Not Detected 01/07/2016 1:51 PM CDT [facility] Phencyclidine Screen Urine Not Detected Not Detected 01/07/2016 1:51 PM CDT [facility] Urine URINE / Unknown 01/07/2016 1 :32 PM CDT 01/07/2016 1:39 PM CDT Narrative [facility] - 01/07/2016 1:51 PM CDT This [...] MD LAB - URINE CHEM ISTRY ORDERABLES [facility] [address] [place] [address] * CT ANGIO HEAD NECK STROKE (01/07/2016 [...] a normal course and caliber to the sun'aq of [place]. CT angiogram of the head: Basilar artery is patent. Posterior cerebral arteries are patent. Proximal middle and anterior cerebral arteries are patent. No focal stenoses are noted. Major dural venous sinuses are patent. Reconstructed images demonstrate a normal course and caliber to the sun'aq of [place]. No aneurysmal dilatation is identified. [...] a normal course and caliber to the sun'aq of [place]. CT angiogram of the head: Basilar artery is patent. Posterior cerebral arteries are patent. Proximal middle and anterior cerebral arteries are patent. No focal stenoses are noted. Major dural venous sinuses are patent. Reconstructed images demonstrate a normal course and caliber to the sun'aq of [place]. No aneurysmal dilatation is identified. [...] is performed with dynamic contrast injection with field representative axial images of the brain. 150 [...] is performed with dynamic contrast injection with field representative axial images of the brain. 150 [...] POINT OF ARE ORDERABLES Performing Organization Address [facility] Co de Phone Number [facility] PO[facility] [address] [place] [address] * PT WHOLE BLOOD - POINT OF CARE (01/07/2016 11:56 AM CDT) Pathologist [facility] QC Verified Yes Yes [facility] POC T [...] POINT OF ARE ORDERABLES Performing Organization Address [facility] Co de Phone Number [facility] [address] [place] [address] * NT-PRO BNP (01/07/2016 11:54 AM CDT) NT-proBNP 22.0 <300.0 pg/mL 01/07/2016 12:24 PM CDT [facility] Blood BLOOD SPECIMEN / Unknown 01/07/2016 11:54 AM CDT 01/07/2016 11:54 AM CDT Narrative [facility] - 01/07/2016 12:24 PM CDT NT-proBNP [...] Michaela Winters MD LAB - CHEMISTRY ORDERABLES [facility] [address] [place] [address] * PROLACTIN (01/07/2016 11:54 AM CDT) Prolactin 9.60 ng/mL 01/07/2016 3:19 PM CDT [facility] Blood BLOOD SPECIMEN / Unknown 01/07/2016 11:54 AM CDT 01/07/2016 2:54 PM CDT Narrative [facility] - 01/07/2016 3:19 PM CDT Prolactin Reference Interval: Female Non: 2.80 - 29.20 ng/mL Female : 9.70 - 208.50 ng/mL Female Postmenopausal: 1.80 - 20.39 ng/mL Male: 2.10 - 17.70 ng/mL Michaela Winters MD LAB - CHEMISTRY ORDERABLES [facility] [address] [place] [address] * (ABNORMAL) CBC W AUTO DIFFERENTIAL (01/07/2016 11:54 AM CDT) WBC 8.1 4.4 - 10.7 x10E9/L 01/07/2016 12:05 PM CDT [facility] WBC Corrected x10E9/L 01/07/2016 12:05 PM CDT [facility] RBC 3.90 3.80 - 5.20 x10E12/L 01/07/2016 12:05 PM CDT [facility] Hemoglobin 12.0 12.0 - 15.6 gm/dL 01/07/2016 12:05 PM CDT [facility] Hematocrit 35.1(L) 35.9 - 45.5 % 01/07/2016 12:05 PM CDT [facility] MCV 90.0 80.7 - 98.3 fl 01/07/2016 12:05 PM CDT [facility] MCH 30.8 26.7 - 34.0 pg 01/07/2016 12:05 PM CDT [facility] MCHC 34.2 30.8 - 35.9 gm/dL 01/07/2016 12:05 PM CDT [facility] Platelet Count 369 153 - 416 x10E9/L 01/07/2016 12:05 PM CDT [facility] RDW-CV 12.2 12.1 - 14.9 % 01/07/2016 12:05 PM CDT [facility] MPV 10.0 9.4 - 12.9 fl 01/07/2016 12:05 PM CDT [facility] Neutrophils % 38.2(L) 44.0 - 73.0 % 01/07/2016 12:05 PM CDT [facility] Lymphocytes % 50.7(H) 20.0 - 43.0 % 01/07/2016 12:05 PM CDT [facility] Monocytes % 6.9 5.0 - 13.0 % 01/07/2016 12:05 PM CDT [facility] Eosinophils % 3.5 0.0 - 6.0 % 01/07/2016 12:05 PM CDT [facility] Basophils % 0.5 0.0 - 2.0 % 01/07/2016 12:05 PM CDT [facility] Immature Granulocytes 0.2 0 - 1 % 01/07/2016 12:05 PM CDT [facility] Neutrophil Absolute 3.07 2.01 - 7.14 x10E9/L 01/07/2016 12:05 PM CDT [facility] Lymphocytes Absolute 4.09(H) 1.07 - 3.94 x10E9/L 01/07/2016 12:05 PM CDT [facility] Monocytes Absolute 0.56 0.26 - 1.07 x10E9/L 01/07/2016 12:05 PM CDT [facility] Eosinophils Absolute 0.28 0 - 0.47 x10E9/L 01/07/2016 12:05 PM CDT [facility] Basophils Absolute 0.04 0 - 0.08 x10E9/L 01/07/2016 12:05 PM CDT [facility] Immature Granulocytes Absolute 0.02 0.00 - 0.06 x10E9/L 01/07/2016 12:05 PM CDT [facility] nRBC Auto 0 /100 WBC 01/07/2016 12:05 PM CDT [facility] Blood BLOOD SPECIMEN / Unknown 01/07/2016 11:54 AM CDT 01/07/2016 11:54 AM CDT Michaela Winters MD LAB - HEMATOLOGY ORDERABLES Performing Organization Address City/State/[facility] Co de Phone Number [facility] [address] [place] [address] * CT HEAD NON CONTRAST [...] CDT) ABO O 01/07/2016 12:55 PM CDT [facility] Rh Type Positive 01/07/2016 12:55 PM CDT [facility] Antibody Screen Negative 01/07/2016 12:55 PM CDT [facility] Miscellaneous samples (specimen) BLOOD SPECIMEN / Unknown 01/07/2016 11:53 AM CDT 01/07/2016 11:53 AM CDT Michaela Winters MD LAB - BLOOD BANK ORDERABLES [facility] [address] * PT PTT PANEL (01/07/2016 11:53 AM CDT) PT 10.2 9.5 - 11.6 sec 01/07/2016 12:16 PM CDT [facility] INR 1.0 0.9 - 1.1 01/07/2016 12:16 PM CDT [facility] PTT 22.9 21.0 - 32.0 sec 01/07/2016 12:16 PM CDT [facility] Blood BLOOD SPECIMEN / Unknown 01/07/2016 11:53 AM CDT 01/07/2016 11:53 AM CDT Narrative [facility] - 01/07/2016 12:16 PM CDT Conventional Warfarin Anticoagulant Therapy: INR Reference Range: 2.0-3.0 Intensive Warfarin Anticoagulant Therapy: INR Reference Range: 2.5-3.5 Heparin Therapeutic Range for PTT: 47.7 - 68.6 seconds. Michaela Winters MD LAB - COAGULATIO N ORDERABLES Performing Organization Address [facility] Co de Phone Number [facility] [address] [place] [address] * MAGNESIUM BLOOD (01/07/2016 11:53 AM CDT) Pathologist [facility] Magnesium 1.9 1.6 - 2.6 mg/dL 01/07/2016 12:17 PM CDT [facility] Blood BLOOD SPECIMEN / Unknown 01/07/2016 11:53 AM CDT 01/07/2016 11:53 AM CDT Michaela Winters MD LAB - CHEMISTRY ORDERABLES Performing Organization Address [facility] de Phone Number [facility] [id number] [place] [address] * EKG 12-LEAD (01/07/2016 11:17 AM CDT) Ventricular Rate 64 BPM [facility] Atrial Rate 64 BPM [facility] P-R Interval 140 ms [facility] QRS Duration ms 84 ms [facility] Q-T Interval ms 420 ms [facility] QTC Calculation (Bezet) 433 ms [facility] Calculated P [place] 37 degrees [facility] Calculated R [place] 26 degrees [facility] Calculated T [place] -3 degrees [facility] Interpretation EKG Normal sinus rhythm Nonspecific T wave abnormality Abnormal ECG No previous ECGs available Confirmed by MD LORENZO, BOB ([id number]) on 01/08/2016 10:04:51 AM [facility] 01/07/2016 11:1 7 AM CDT 01/08/2016 10:04 AM CDT Michaela Winters MD ECG ORDERABLES Performing Organization Address [facility] Co de Phone Number [facility] * XR LUMBAR SPINE 2 OR [...] Volume Amnio 13 ml [facility] Interpretation [facility] Comment: FLM Immature ......... <= 39 mg/g Mature ......... >= 55 mg/g Results between 40 and 54 cannot be declared mature or immature and should be evaluated with caution. AMNIOTIC FLUID SPECIMEN / Unknown 10/05/2009 8:35 AM CDT 10/05/2009 10:52 AM CDT Jeff Damon MD LAB - BODY FLUID O RDERABLES [facility] [address] [place] [address] Care Teams Maintenance Dispatcher Relationship Specialty Start Date End Date Farhad Fuchs MD PCP - General 01/15/18
--- OUTSIDE RECORDS SUMMARY | 2024-05-25 12:47 | XMS_ITS | Encounter Summary ---
Author Organization [facility] Address [address] [place] [address] Care Team Providers Care Credit Administration Specialist Name Role Phone Carson Benavides MD Primary Care Provider [phone] Viridiana Zaidi NP Primary Care Provider [phone] Encounter Details Date Type Department Care Team (Late Contact Info) Description 09/22/2018 Abstract [facility] CONVERSION [address] [place] [address] , Generic Conversion, Social History Tobacco Use [...] Info) Description 07/02/2024 12:30 PM CDT Appointment [facility] [place], [place] [id number] Conner Bob MD [address] [place] [id number] 07/02/2024 1:00 PM CDT Appointment [facility] [place], [place] [phone] Conner Bob MD [address] [facility] [address] [place], [place] [address] documented as of this encounter Visit Diagnoses Not on filedocumented in this encounter Additional Health Concerns Infection Onset Date Last Indicated Resolved Time 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
--- OUTSIDE RECORDS SUMMARY | 2024-05-25 12:47 | XMS_ITS | Encounter Summary ---
Author Organization [facility] Address [facility] [place] [address] Care Team Providers Care Apn Name Role Phone Viridiana Zaidi NP Primary Care Provider [phone] Encounter Details Date Type Department Care Team (Late st Contact Info) Description 10/12/2022 UbitricityharChipIn Message [facility] [address] [place], [place] [address] [facility] Provider Air Quality Message Social [...] Info) Description 07/02/2024 12:30 PM CDT App[facility]ment [facility] [place], [place] [phone] Conner Bob MD [facility] [address] 07/02/2024 1:00 PM CDT Appointment [facility] [facility] [address] [facility] [place] [address] Conner Bob MD [address] [facility] [address] [place] [address] documented as of this encounter Visit Diagnoses Not on filedocumented in this encounter Additional Health Concerns Infection Onset Date Last Indicated Resolved Time 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
[2024-05-25 13:00] VITALS: BP 142/85; PULSE 87; RESP 18; TEMP 36.5; O2SAT 98
--- OUTSIDE RECORDS SUMMARY | 2024-05-25 13:21 | XMS_ITS | Clinical Summary ---
Author Organization [facility] [employer] Address [address] [facility] [place] [address] Care Team Providers Care Real Estate Analyst Name Role Phone Farhad Fuchs MD Primary Care Provider [phone] Source Comments [facility],non-owned Affiliates and Associated Physician Practices is amultiple site organization consisting of ambulatory clinics and hospital sitesin [place], [place], [place] and [place]. This disclosure is being madepursuant to the Care Everywhere program and may not contain all information available regarding this patient. Last updated 18.[facility] [employer] Allergies Active Allergy Reactions Criticality Noted Date [...] Comments Blood Pressure 128/76 03/09/2022 10:42 AM [facility] Pulse 82 01/08/2016 7:54 AM CDT Temperature 36.6 C (97.8 F) 03/09/2022 10:42 AM [facility] Respiratory Rate 16 01/08/2016 7:54 AM CDT Oxygen Saturation 100% 01/08/2016 7:54 AM CDT Inhaled Oxygen Concentration - - Weight 85.1 kg (187 lb 9.6 oz) 03/09/2022 10:42 AM [facility] Height 157.5 cm (5' 2 ) 03/09/2022 10:42 AM [facility] Body Mass Index 34.31 03/09/2022 10:42 AM STUD[facility] HAND Plan of Treatment Health Maintenance Due Date [...] - 106 mg/dL 01/08/2016 5:06 AM CDT [facility] Sodium 139 136 - 145 mmol/L 01/08/2016 5:06 AM CDT [facility] Potassium 3.8 3.5 - 5.1 mmol/L 01/08/2016 5:06 AM CDT [facility] Chloride 104 98 - 107 mmol/L 01/08/2016 5:06 AM CDT [facility] CO2 28 22 - 31 mmol/L 01/08/2016 5:06 AM CDT [facility] Calcium 8.9 8.5 - 10.1 mg/dL 01/08/2016 5:06 AM CDT [facility] Anion Gap 7 5 - [...] Michaela Winters MD LAB - CHEMISTRY ORDERABLES [facility] [address] [place] [address] from Last 3 Months or Most Recently Relevant to Health Maintenance Advance Directives * Full Code (Latest Code Status on File) Date Activated Date Inactivated Comments 01/07/2016 7:16 PM 01/08/2016 12:15 PM * Full Code Date Activated Date Inactivated Comments 01/07/2016 3:44 PM 01/07/2016 7:16 PM Care Teams Real Estate Analyst Relationship Specialty Start Date End Date Farhad Fuchs MD PCP - General 01/15/18
--- OUTSIDE RECORDS SUMMARY | 2024-05-25 13:21 | XMS_ITS | Encounter Summary ---
Author Organization [facility] Address [address] [place] [address] Care Team Providers Care Denture Packer Name Role Phone Viridiana Zaidi VARNISH REMOVER Primary Care Provider [phone] Reason for Visit * Reason Comments Colonoscopy [...] Info) Description 07/02/2024 12:30 PM CDT Appointment [facility] [address] [place], [place] [id number] Conner Bob MD [address] [place] [address] [phone] 07/02/2024 1:00 PM CDT Appointment [facility] [place] [address] Conner Bob MD [address] [facility] [address] [place] [address] documented as of this encounter Procedures Procedure [...] documented as of this encounter Care Teams Denture Packer Relationship Specialty Start Date End Date Viridiana Zaidi NP [address] [place] [address] PCP - General NURSE PRACTITIONER 06/17/21 documented as of this encounter
--- OUTSIDE RECORDS SUMMARY | 2024-05-25 13:21 | XMS_ITS | Encounter Summary ---
Author Organization [facility] Address [address] [place] [address] Care Team Providers Care Gyn Name Role Phone Carson Benavides MD Primary Care Provider [phone] Viridiana Zaidi NP Primary Care Provider [phone] Encounter Details Date Type Department Care Team (Late Contact Info) Description 09/22/2018 Abstract [facility] [address] [place] [address] , Generic Conversion, Social History Tobacco Use [...] Info) Description 07/02/2024 12:30 PM CDT Appointment [facility] [place], [place] [id number] Conner Bob MD [address] [place] [phone] 07/02/2024 1:00 PM CDT Appointment [facility] [place], [place] [id number] Conner Bob MD [address] [facility] [address] [place], [place] [id number] documented as of this encounter Visit Diagnoses Not on filedocumented in this encounter Additional Health Concerns Infection Onset Date Last Indicated Resolved Time MRSA 11/21/2016 11/21/2016 documented as of this encounter Care Teams Gyn Relationship Specialty Start Date End Date Carson Benavides MD [address] [facility] [address] [place] [address] PCP - General INTERNAL MEDICINE 08/19/17 06/16/21 Viridiana Zaidi NP [address] [place] [address] PCP - General NURSE PRACTITIONER 06/17/21 documented as of this encounter
--- OUTSIDE RECORDS SUMMARY | 2024-05-25 13:21 | XMS_ITS | Referral Summary ---
Author Organization [facility] [employer] Address [address] [facility] [place] [address] Care Team Providers Care [place] Operator Name Role Phone Farhad Fuchs MD Primary Care Provider [phone] Source Comments [facility],non-owned Affiliates and Associated Physician Practices is amultiple site organization consisting of ambulatory clinics and hospital sitesin [place], [place], [place] and [place]. This disclosure is being madepursuant to the Care Everywhere program and may not contain all information available regarding this patient. Last updated 18.[facility] Allergies Active Allergy Reactions Criticality Noted [...] Comments Blood Pressure 128/76 03/09/2022 10:[address] [place] Pulse 82 01/08/2016 7:54 AM CDT Temperature 36.6 C (97.8 F) 03/09/2022 10:[address] [place] Respiratory Rate 16 01/08/2016 7:54 AM CDT Oxygen Saturation 100% 01/08/2016 7:54 AM CDT Inhaled Oxygen Concentration - - Weight 85.1 kg (187 lb 9.6 oz) 03/09/2022 10:[address] [place] Height 157.5 cm (5' 2 ) 03/09/2022 10:[address] [place] Body Mass Index 34.31 03/09/2022 10:[address] [place] Functional Status Functional Status Response Date of [...] PANEL (CALCIUM TOTAL) (01/08/2016 4:02 AM CDT) [facility] Glucose 95 74 - 106 mg/dL 01/08/2016 5:06 AM CDT [facility] Sodium 139 136 - 145 mmol/L 01/08/2016 5:06 AM CDT [facility] Potassium 3.8 3.5 - 5.1 mmol/L 01/08/2016 5:06 AM CDT [facility] Chloride 104 98 - 107 mmol/L 01/08/2016 5:06 AM CDT [facility] CO2 28 22 - 31 mmol/L 01/08/2016 5:06 AM CDT [facility] Calcium 8.9 8.5 - 10.1 mg/dL 01/08/2016 5:06 AM CDT [facility] Anion Gap 7 5 - 20 mmol/L 01/08/2016 5:06 AM CDT [facility] BUN 12 7 - 21 mg/dL 01/08/2016 5:06 AM CDT [facility] Creatinine 0.95 0.50 - 1.30 mg/dL 01/08/2016 5:06 AM CDT [facility] eGFR by MDRD >60 >60 mL/min/1.7 3m2 01/08/2016 5:06 AM CDT [facility] eGFR by MDRD >60 >60 mL/min/1.7 3m2 01/08/2016 5:06 AM CDT [facility] Blood BLOOD SPECIMEN / Unknown 01/08/2016 4:02 AM CDT 01/08/2016 4:35 AM CDT Michaela Winters MD LAB - CHEMISTRY ORDERABLES [facility] [address] [place] [address] from Last 3 Months or Most Recently Relevant to Health Maintenance Advance Directives * Full Code (Latest Code Status on File) Date Activated Date Inactivated Comments 01/07/2016 7:16 PM 01/08/2016 12:15 PM * Full Code Date Activated Date Inactivated Comments 01/07/2016 3:44 PM 01/07/2016 7:16 PM Care Teams [place] Operator Relationship Specialty Start Date End Date Farhad Fuchs MD PCP - General 01/15/18
--- OUTSIDE RECORDS SUMMARY | 2024-05-25 13:21 | XMS_ITS | Clinical Summary ---
Author Organization [facility] Address [address] [place] [address] Phone Care Team Providers Care Print Journalist Name Role Phone Provider, Unknown Primary Care Provider Unavaila ble Social History Tobacco Use Types Packs/Day Years Used Date Smoking Tobacco: Never Assessed Comments Unknown Sex and Gender Information Value Date Recorded Sex Assigned at Not on file Legal Sex Female 5:24 PM CDT Gender Identity Not on file Sexual Orientation Not on file Plan of Treatment Not on file Care Teams Print Journalist Relationship Specialty Start Date End Date Provider, Unknown UNKNOWN PCP - General 10/12/16
--- OUTSIDE RECORDS SUMMARY | 2024-05-25 13:21 | XMS_ITS | Patient Health Summary ---
Author Organization [facility] Address [address] [place] [address] Care Team Providers Care Sales And Service Associate Name Role Phone Farhad Fuchs MD Primary Care Provider [phone] Note from [facility],non-owned Affiliates and Associated Physician Practices is amultiple site organization consisting of ambulatory clinics and hospital sitesin [place], [place], [place] and [place]. This disclosure is being madepursuant to the Care Everywhere program and may not contain all information available regarding this patient. Last updated 18.[facility] Allergies * Lisinopril(Swelling) Medications * Be [...] Comments Blood Pressure 128/76 03/09/2022 10:42 AM ADVISORY SERVICES ASSOCIATE Pulse 82 01/08/2016 7:54 AM CDT Temperature 36.6 C (97.8 F) 03/09/2022 10:42 AM ADVISORY SERVICES ASSOCIATE Respiratory Rate 16 01/08/2016 7:54 AM CDT Oxygen Saturation 100% 01/08/2016 7:54 AM CDT Inhaled Oxygen Concentration - - Weight 85.1 kg (187 lb 9.6 oz) 03/09/2022 10:42 AM ADVISORY SERVICES ASSOCIATE Height 157.5 cm (5' 2 ) 03/09/2022 10:42 AM ADVISORY SERVICES ASSOCIATE Body Mass Index 34.31 03/09/2022 10:42 AM ADVISORY SERVICES ASSOCIATE Procedures * URINALYSIS AUTO - POINT OF [...] POINT OF CARE (AMB) [facility] (03/09/2022) Pathologist [facility] Glucose UA neg Bilirubin UA POCT neg Ketones UA POCT neg Specific [place] UA 1.020 Blood Urine POCT neg pH UA 6.0 Protein UA neg Urobilinogen UA 0.2 Nitrite UA neg WBC UA neg Urine URINE / Unknown 03/09/2022 Bertram Graves MD LAB - POINT OF CARE ORDERABLES * CULTURE URINE (03/09/2022) Pathologist [facility] Culture QUEST Comment: CULTURE, URINE, ROUTINE Micro Number: [id number] Test Status: Final Specimen Source: Urine clean Specimen Quality: Adequate Result: No Growth Test Performed at: [address] [address] JAMES QUEEN MD Urine URINE SPECIMEN OBTAINED BY CLEAN CATCH PROCEDURE / Unknown 03/09/2022 03/10/2022 1:50 AM ADVISORY SERVICES ASSOCIATE Bertram Graves MD LAB - MICROBIOLOGY O RDERABLES [address] [address] * CARDIAC RHYTHM STRIP ORDER (01/12/2016 10:26 PM CDT) Narrative 01/12/2016 10:26 PM CDT Ordered by an unspecified provider. Scanned Document CARDIAC SERVICES ORD ERABLES * CARDIAC EKG ORDER (01/09/2016 9:42 PM CDT) Narrative 01/09/2016 9:42 PM CDT Ordered by an unspecified provider. Scanned Document CARDIAC SERVICES ORD ERABLES * ECHOCARDIOGRAM 2D WITH DOPPLER (01/08/2016 9:37 AM CDT) 01/08/2016 9:37 AM CDT Narrative [facility] - 01/08/2016 1:57 PM CDT [facility] [id number] [place] [id number] Transthoracic Echocardiogram 2D, M-mode, Doppler, and Color Doppler Patient: JOHANNA PALMER MR number: [id number] Height: 62 in Weight: 184 lb BSA: 1.85 m Study date: 08-Jan-2016 : 1975 Age: 40 years Gender: Female Race: Black Diagnoses: R41.82 - Altered mental status, unspecified Reading Physician: Bob Marie MD Referring Physician: Michaela Winters M.D MEDICAL RESEARCH ASSOCIATE: Kamar Salinas. [facility] Cardiology Group: [facility] Student: Rhys Rowe Summary: - Clinical [...] Procedure: The study was performed in the [facility]. This was a routine study. Room 753 [...] MV A Marquez: 0.6 m/s MV Dec [place]: 3.9 m/s2 MV E Marquez: 0.8 m/s MV E/A Ratio: 1.3 RVSP: 41.6 mmHg Septal e': 0.1 m/s Prepared and signed by Bob Marie MD Signed 08-Jan-2016 13:56:26 Procedure Note Bob Marie MD - 01/08/[address] [address] Transthoracic Echocardiogram 2D, M-mode, Doppler, and Color Doppler Patient: JOHANNA PALMER MR number: [id number] Height: 62 in Weight: 184 lb BSA: 1.85 m Study date: 08-Jan-2016 : 1975 Age: 40 years Gender: Female Race: Black Diagnoses: R41.82 - Altered mental status, unspecified Reading Physician: Bob Marie MD Referring Physician: Michaela Winters M.D MEDICAL RESEARCH ASSOCIATE: Kamar Salinas. [facility] Cardiology Group: [facility] Student: Rhys Rowe Summary: - Clinical [...] Procedure: The study was performed in the [facility]. This was a routine study. Room 753 [...] MV A Marquez: 0.6 m/s MV Dec [place]: 3.9 m/s2 MV E Marquez: 0.8 m/s MV E/A Ratio: 1.3 RVSP: 41.6 mmHg Septal e': 0.1 m/s Prepared and signed by Bob Marie MD Signed 08-Jan-2016 13:56:26 Michaela Winters MD ECHO ORDERABLES [facility] * (ABNORMAL) GLUCOSE - POINT OF CARE (01/08/2016 7:28 AM CDT) Only the most recent of3 resultswithin the time period is included. Glucose WB/POC 137(H) 70 - 106 mg/dL 01/08/2016 8:13 AM CDT [facility] Blood BLOOD SPECIMEN / Unknown 01/08/2016 7:28 AM CDT 01/08/2016 8:13 AM CDT Nadira Muhammad MD LAB - POINT OF CARE ORDERABLES [facility] [address] [place] [id number] * BASIC METABOLIC PANEL (CALCIUM TOTAL) (01/08/2016 4:02 AM CDT) Only the most recent of2 resultswithin the time period is included. Glucose 95 74 - 106 mg/dL 01/08/2016 5:06 AM CDT [facility] Sodium 139 136 - 145 mmol/L 01/08/2016 5:06 AM CDT [facility] Potassium 3.8 3.5 - 5.1 mmol/L 01/08/2016 5:06 AM CDT [facility] Chloride 104 98 - 107 mmol/L 01/08/2016 5:06 AM CDT [facility] CO2 28 22 - 31 mmol/L 01/08/2016 5:06 AM CDT [facility] Calcium 8.9 8.5 - 10.1 mg/dL 01/08/2016 5:06 AM T [facility] Anion Gap 7 5 - 20 mmol/L 01/08/2016 5:06 AM CDT [facility] BUN 12 7 - 21 mg/dL 01/08/2016 5:06 AM CDT [facility] Creatinine 0.95 0.50 - 1.30 mg/dL 01/08/2016 5:06 AM T [facility] eGFR by MDRD >60 >60 mL/min/1.7 3m2 01/08/2016 5:06 AM CDT [facility] eGFR by MDRD >60 >60 mL/min/1.7 3m2 01/08/2016 5:06 AM CDT [facility] Blood BLOOD SPECIMEN / Unknown 01/08/2016 4:02 AM CDT 01/08/2016 4:35 AM CDT Michaela Winters MD LAB - CHEMISTRY ORDERABLES [facility] [address] [place] [address] * (ABNORMAL) URINALYSIS ROUTINE W/REFLEX TO CULTURE (01/07/2016 1:32 PM CDT) Color UA Yellow Straw, Yellow, Dark Yellow 01/07/2016 1:44 PM CDT [facility] Clarity UA Clear 01/07/2016 1:44 PM CDT [facility] Specific [place] UA >1.030(H) 1.005 - 1.030 01/07/2016 1:44 PM CDT [facility] pH UA 5.5 5.0 - 8.0 pH 01/07/2016 1:44 PM CDT [facility] Protein UA Negative Negative 01/07/2016 1:44 PM CDT [facility] Blood UA Negative Negative 01/07/2016 1:44 PM CDT [facility] Leukocyte UA Negative Negative 01/07/2016 1:44 PM CDT [facility] Nitrite UA Negative Negative 01/07/2016 1:44 PM CDT [facility] Glucose UA Negative Negative 01/07/2016 1:44 PM CDT [facility] Ketone UA Negative Negative 01/07/2016 1:44 PM CDT [facility] Bilirubin UA Negative Negative 01/07/2016 1:44 PM CDT [facility] Urobilinogen UA 0.2 0.1 - 1.0 EU/dL 01/07/2016 1:44 PM CDT [facility] Reflex Status Culture not indicated 01/07/2016 1:44 PM CDT [facility] Urine URINE SPECIMEN OBTAINED BY CLEAN CATCH PROCEDURE / Unknown 01/07/2016 1:32 PM CDT 01/07/2016 1:39 PM CDT Michaela Winters MD LAB - URINALYSIS ORDERABLES Performing Organization Address City/[facility]/ZIP Co de Phone Number [facility] [address] [place] [address] * HCG URINE QUALITATIVE (01/07/2016 1:32 PM CDT) [facility] hCG Qualitative Urine Negative Negative 01/07/2016 3:05 PM CDT [facility] Urine URINE / Unknown 01/07/2016 1:32 PM CDT 01/07/2016 2:55 PM CDT Michaela Winters MD LAB - URINALYSIS ORDERABLES Performing Organization Address [facility] de Phone Number [facility] [id number] [place] [address] * DRUG SCREEN TOX URINE PANEL (01/07/2016 1:32 PM CDT) [facility] Amphetamines Screen Urine Not Detected Not Detected 01/07/2016 1:51 PM CDT [facility] Barbiturates Screen Urine Not Detected Not Detected 01/07/2016 1:51 PM CDT [facility] Benzodiazepines Screen Urine Not Detected Not Detected 01/07/2016 1:51 PM CDT [facility] Cannabinoids Screen Urine Not Detected Not Detected 01/07/2016 1:51 PM CDT [facility] Cocaine Screen Urine Not Detected Not Detected 01/07/2016 1:51 PM CDT [facility] Methadone Screen Urine Not Detected Not Detected 01/07/2016 1:51 PM CDT [facility] Opiate Screen Urine Not Detected Not Detected 01/07/2016 1:51 PM CDT [facility] Phencyclidine Screen Urine Not Detected Not Detected 01/07/2016 1:51 PM CDT [facility] Urine URINE / Unknown 01/07/2016 1 :32 PM CDT 01/07/2016 1:39 PM CDT Narrative [facility] - 01/07/2016 1:51 PM CDT [...] MD LAB - URINE CHEM ISTRY ORDERABLES [facility] [address] [place] [address] * CT ANGIO HEAD NECK STROKE (01/07/2016 [...] a normal course and caliber to the [place]. CT angiogram of the head: Basilar artery is patent. Posterior cerebral arteries are patent. Proximal middle and anterior cerebral arteries are patent. No focal stenoses are noted. Major dural venous sinuses are patent. Reconstructed images demonstrate a normal course and caliber to the [place]. No aneurysmal dilatation is identified. [...] a normal course and caliber to the [place]. CT angiogram of the head: Basilar artery is patent. Posterior cerebral arteries are patent. Proximal middle and anterior cerebral arteries are patent. No focal stenoses are noted. Major dural venous sinuses are patent. Reconstructed images demonstrate a normal course and caliber to the [place]. No aneurysmal dilatation is identified. [...] is performed with dynamic contrast injection with food service representative axial images of the brain. 150 [...] is performed with dynamic contrast injection with food service representative axial images of the brain. 150 [...] POINT OF ARE ORDERABLES Performing Organization Address [facility] Co de Phone Number [facility] [address] [place] [address] * PT WHOLE BLOOD - POINT OF CARE (01/07/2016 11:56 AM CDT) Pathologist [facility] QC Verified Yes Yes [facility] POC T [...] POINT OF ARE ORDERABLES Performing Organization Address [facility] Co de Phone Number [facility] [address] [place] [address] * NT-PRO BNP (01/07/2016 11:54 AM CDT) NT-proBNP 22.0 <300.0 pg/mL 01/07/2016 12:24 PM CDT [facility] Blood BLOOD SPECIMEN / Unknown 01/07/2016 11:54 AM CDT 01/07/2016 11:54 AM CDT Narrative [facility] - 01/07/2016 12:24 PM CDT [...] Michaela Winters MD LAB - CHEMISTRY ORDERABLES [facility] [address] [place] [address] * PROLACTIN (01/07/2016 11:54 AM CDT) Prolactin 9.60 ng/mL 01/07/2016 3:19 PM CDT [facility] Blood BLOOD SPECIMEN / Unknown 01/07/2016 11:54 AM CDT 01/07/2016 2:54 PM CDT Narrative [facility] - 01/07/2016 3:19 PM CDT Prolactin Reference Interval: Female Non: 2.80 - 29.20 ng/mL Female : 9.70 - 208.50 ng/mL Female Postmenopausal: 1.80 - 20.39 ng/mL Male: 2.10 - 17.70 ng/mL Michaela Winters MD LAB - CHEMISTRY ORDERABLES [facility] [address] [place] [address] * (ABNORMAL) CBC W AUTO DIFFERENTIAL (01/07/2016 11:54 AM CDT) WBC 8.1 4.4 - 10.7 x10E9/L 01/07/2016 12:05 PM CDT [facility] WBC Corrected x10E9/L 01/07/2016 12:05 PM CDT [facility] RBC 3.90 3.80 - 5.20 x10E12/L 01/07/2016 12:05 PM CDT [facility] Hemoglobin 12.0 12.0 - 15.6 gm/dL 01/07/2016 12:05 PM CDT [facility] Hematocrit 35.1(L) 35.9 - 45.5 % 01/07/2016 12:05 PM CDT [facility] MCV 90.0 80.7 - 98.3 fl 01/07/2016 12:05 PM CDT [facility] MCH 30.8 26.7 - 34.0 pg 01/07/2016 12:05 PM CDT [facility] MCHC 34.2 30.8 - 35.9 gm/dL 01/07/2016 12:05 PM CDT [facility] Platelet Count 369 153 - 416 x10E9/L 01/07/2016 12:05 PM CDT [facility] RDW-CV 12.2 12.1 - 14.9 % 01/07/2016 12:05 PM CDT [facility] MPV 10.0 9.4 - 12.9 fl 01/07/2016 12:05 PM CDT [facility] Neutrophils % 38.2(L) 44.0 - 73.0 % 01/07/2016 12:05 PM CDT [facility] Lymphocytes % 50.7(H) 20.0 - 43.0 % 01/07/2016 12:05 PM CDT [facility] Monocytes % 6.9 5.0 - 13.0 % 01/07/2016 12:05 PM CDT [facility] Eosinophils % 3.5 0.0 - 6.0 % 01/07/2016 12:05 PM CDT [facility] Basophils % 0.5 0.0 - 2.0 % 01/07/2016 12:05 PM CDT [facility] Immature Granulocytes 0.2 0 - 1 % 01/07/2016 12:05 PM CDT [facility] Neutrophil Absolute 3.07 2.01 - 7.14 x10E9/L 01/07/2016 12:05 PM CDT [facility] Lymphocytes Absolute 4.09(H) 1.07 - 3.94 x10E9/L 01/07/2016 12:05 PM CDT [facility] Monocytes Absolute 0.56 0.26 - 1.07 x10E9/L 01/07/2016 12:05 PM CDT [facility] Eosinophils Absolute 0.28 0 - 0.47 x10E9/L 01/07/2016 12:05 PM CDT [facility] Basophils Absolute 0.04 0 - 0.08 x10E9/L 01/07/2016 12:05 PM CDT [facility] Immature Granulocytes Absolute 0.02 0.00 - 0.06 x10E9/L 01/07/2016 12:05 PM CDT [facility] nRBC Auto 0 /100 WBC 01/07/2016 12:05 PM CDT [facility] Blood BLOOD SPECIMEN / Unknown 01/07/2016 11:54 AM CDT 01/07/2016 11:54 AM CDT Michaela Winters MD LAB - HEMATOLOGY ORDERABLES Performing Organization Address City/State/[facility] Co de Phone Number [facility] [address] [place] [address] * CT HEAD NON CONTRAST [...] CDT) ABO O 01/07/2016 12:55 PM CDT [facility] Rh Type Positive 01/07/2016 12:55 PM CDT [facility] Antibody Screen Negative 01/07/2016 12:55 PM CDT [facility] Miscellaneous samples (specimen) BLOOD SPECIMEN / Unknown 01/07/2016 11:53 AM CDT 01/07/2016 11:53 AM CDT Michaela Winters MD LAB - BLOOD BANK ORDERABLES [facility] [address] * PT PTT PANEL (01/07/2016 11:53 AM CDT) PT 10.2 9.5 - 11.6 sec 01/07/2016 12:16 PM CDT [facility] INR 1.0 0.9 - 1.1 01/07/2016 12:16 PM CDT [facility] PTT 22.9 21.0 - 32.0 sec 01/07/2016 12:16 PM CDT [facility] Blood BLOOD SPECIMEN / Unknown 01/07/2016 11:53 AM CDT 01/07/2016 11:53 AM CDT Narrative [facility] - 01/07/2016 12:16 PM CDT Conventional Warfarin Anticoagulant Therapy: INR Reference Range: 2.0-3.0 Intensive Warfarin Anticoagulant Therapy: INR Reference Range: 2.5-3.5 Heparin Therapeutic Range for PTT: 47.7 - 68.6 seconds. Michaela Winters MD LAB - COAGULATIO N ORDERABLES Performing Organization Address [facility] Co de Phone Number [facility] [address] [place] [address] * MAGNESIUM BLOOD (01/07/2016 11:53 AM CDT) Pathologist [facility] Magnesium 1.9 1.6 - 2.6 mg/dL 01/07/2016 12:17 PM CDT [facility] Blood BLOOD SPECIMEN / Unknown 01/07/2016 11:53 AM CDT 01/07/2016 11:53 AM CDT Michaela Winters MD LAB - CHEMISTRY ORDERABLES Performing Organization Address [facility] de Phone Number [facility] [id number] [place] [address] * EKG 12-LEAD (01/07/2016 11:17 AM CDT) Ventricular Rate 64 BPM [facility] Atrial Rate 64 BPM [facility] P-R Interval 140 ms [facility] QRS Duration ms 84 ms [facility] Q-T Interval ms 420 ms [facility] QTC Calculation (Bezet) 433 ms [facility] Calculated P Lannon 37 degrees [facility] Calculated R Lannon 26 degrees [facility] Calculated T Lannon -3 degrees [facility] Interpretation EKG Normal sinus rhythm Nonspecific T wave abnormality Abnormal ECG No previous ECGs available Confirmed by MD LORENZO, BOB ([id number]) on 01/08/2016 10:04:51 AM [facility] M[facility] 01/07/2016 11:1 7 AM CDT 01/08/2016 10:04 AM CDT Michaela Winters MD ECG ORDERABLES Performing Organization Address [facility] Co de Phone Number [facility] * XR LUMBAR SPINE 2 [...] Volume Amnio 13 ml [facility] Interpretation [facility] Comment: FLM Immature ......... <= 39 mg/g Mature ......... >= 55 mg/g Results between 40 and 54 cannot be declared mature or immature and should be evaluated with caution. AMNIOTIC FLUID SPECIMEN / Unknown 10/05/2009 8:35 AM CDT 10/05/2009 10:52 AM CDT Jeff Damon MD LAB - BODY FLUID O RDERABLES [facility] [address] [place] [address] Care Teams Sales And Service Associate Relationship Specialty Start Date End Date Farhad Fuchs MD PCP - General 01/15/18
--- OUTSIDE RECORDS SUMMARY | 2024-05-25 13:22 | XMS_ITS | Clinical Summary ---
Author Organization [facility] Yessenia gilmore Shayy Address [address] [place] [address] Care Team Providers Care Residential Builder Name Role Phone Unavailable Primary Care Provider [...] Department Care Team Description 04/02/2024 4:30 PM STACKER STRAIGHTENER Telephone Check Up [facility] Oncology and Hematology - [address] [place] [address] Nils De Oliveira MD Chronic anemia (Primary Dx); Lymphocytosis 03/26/2024 External Device Data STL ABSTRACTION Provider, Abstract 03/26/2024 Orders Only [facility] Oncology and Hematology - [address] [place] [address] Nils De Oliveira MD 03/20/2024 Orders Only [facility] Oncology and Hematology - [address] [place] [address] Nils De Oliveira MD 03/19/2024 1:30 PM STACKER STRAIGHTENER Office Visit [facility] Oncology and Hematology [facility] [address] [place] [address] Nils De Oliveira MD Chronic [...] Comments Blood Pressure 133/92 03/19/2024 1:15 PM STACKER STRAIGHTENER Pulse 83 03/19/2024 1:13 PM STACKER STRAIGHTENER Temperature 36.8 C (98.2 F) 03/19/2024 1:13 PM STACKER STRAIGHTENER Respiratory Rate 16 03/19/2024 1:13 PM STACKER STRAIGHTENER Oxygen Saturation 97% 03/19/2024 1:13 PM STACKER STRAIGHTENER Inhaled Oxygen Concentration - - Weight 89.3 kg (196 lb 12.8 oz) 03/19/2024 1:13 PM STACKER STRAIGHTENER Height 157.5 cm (5' 2 ) 03/19/2024 1:13 PM STACKER STRAIGHTENER Body Mass Index 36 03/19/2024 1:13 PM STACKER STRAIGHTENER Plan of Treatment Upcoming Encounters Date Type Department Care Team (Late st Contact Info) Description 07/05/2024 12:15 PM CDT Office Visit [facility] Oncology and Hematology [address] [place] [address] Nils De Oliveira MD [address] [place] [address] Health Maintenance Due Date Last [...] TO HGB ID Routine 03/19/2024 2:53 PM STACKER STRAIGHTENER TRANSFERRIN RECEPTOR TFR SOLUBLE Routine 03/19/2024 2:36 PM STACKER STRAIGHTENER COMPREHENSIVE METABOLIC PANEL Routine 03/19/2024 1:55 PM STACKER STRAIGHTENER from Last 3 Months Results * SICKLE CELL SCREEN W/ REFLEX TO HGB ID (03/19/2024 2:53 PM STACKER STRAIGHTENER) Blood us Provider Scanning HEMATOLOGY ORDERABLES COM Ann l Result * TRANSFERRIN RECEPTOR TFR SOLUBLE (03/19/2024 2:36 PM STACKER STRAIGHTENER) Blood us Nils De Oliveira MD CHEMISTRY ORDERABLES Final Resu lt * COMPREHENSIVE METABOLIC PANEL (03/19/2024 1:55 PM STACKER STRAIGHTENER) Blood us Nils De Oliveira MD CHEMISTRY ORDERABLES Final Resu lt from Last 3 Months Insurance [facility] [id number]
--- OUTSIDE RECORDS SUMMARY | 2024-05-25 13:22 | XMS_ITS | Encounter Summary ---
Author Organization [facility] Address [facility] [place] [address] Care Team Providers Care Foreign Food Cook Specialty Name Role Phone Viridiana Zaidi NP Primary Care Provider [phone] Encounter Details Date Type Department Care Team (Late st Contact Info) Description 10/12/2022 PalindromXharScope 5 Message [facility] [address] [place], [place] [id number] [facility] Provider Air Quality Message Social History Tobacco [...] Info) Description 07/02/2024 12:30 PM CDT Appointment [facility] [address] [place], [place] [id number] Conner Bob MD [facility] [address] [address] 07/02/2024 1:00 PM CDT Appointment [facility] 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
--- OUTSIDE RECORDS SUMMARY | 2024-05-25 13:22 | XMS_ITS | Clinical Summary ---
Author Organization [facility] Address [facility] [place] [address] Care Team Providers Care Denture Waxer Name Role Phone Viridiana Zaidi NP Primary Care Provider [phone] [phone] Allergies Active Allergy Reactions Criticality Noted Date [...] complication, without long-term current use of insulin ([facility] [place]) 12/11/2023 Overview (12/11/2023): Recent A1C was 6.4 [...] back to PT and with someone in [place]. Assessment & Plan (12/11/2023 10:44 AM CDT): Referral to PT in [place] placed. Gastroesophageal reflux dise ase, unspecified whether [...] AM CDT): Encourage stress relieving activities. Health college football coach also recommended. Vitamin D deficiency 10/19/2021 [...] Diet and lifestyle changes discussed. Encourage health college football coach as well and personal lines insurance agent to help with accountability. Pt's goals are [...] Scanned, [facility] 03/20/2024 2:00 PM MS SQL DEVELOPER Office Visit [facility] Family Medicine - [place] [address] [facility] [address] [place] [address] Viridiana Zaidi NP Obesity (Patient presents to discuss weight loss options) 03/20/2024 Travel 03/19/2024 Scan [facility] Scanned, [facility] 03/11/2024 Travel 03/01/2024 6:15 AM MS SQL DEVELOPER - 03/01/2024 11:59 PM MS SQL DEVELOPER Hospital Encounter [facility] Ultrasound [address] [place] [address] Lori Bob MD Discharge Disposition: Home or [...] Comments Blood Pressure 122/80 03/20/2024 2:03 PM MS SQL DEVELOPER Pulse 94 03/20/2024 2:03 PM MS SQL DEVELOPER Temperature 37.1 C (98.8 F) 03/20/2024 2:03 PM MS SQL DEVELOPER Respiratory Rate 18 03/20/2024 2:03 PM MS SQL DEVELOPER Oxygen Saturation 100% 03/20/2024 2:03 PM MS SQL DEVELOPER Inhaled Oxygen Concentration - - Weight 90.3 kg (199 lb) 03/20/2024 2:03 PM MS SQL DEVELOPER Height 157.5 cm (5' 2 ) 03/20/2024 2:03 PM MS SQL DEVELOPER Body Mass Index 36.4 03/20/2024 2:03 PM MS SQL DEVELOPER Plan of Treatment Upcoming Encounters Date Type Department Care Team (Late st Contact Info) Description 07/02/2024 12:30 PM CDT Appointment [facility] [address] [place], [place] [phone] Lori Bob MD [address] [place] [address] [phone] 07/02/2024 1:00 PM CDT Appointment [facility] [place], [place] [id number] Lori Bob MD [address] [place] [address] [phone] Health Maintenance Due Date Last Done Comments [...] 07/18/2020 Influenza Adult (#1) 2024 PHQ-2 (Physician Chinik) 04/17/2024 12/11/2023 Hemoglobin A1C 06/06/2024 12/05/2023, 08/0 [...] DIAGNOSTIC RT DIGI Routine 03/01/2024 7:24 AM MS SQL DEVELOPER Breast mass, right US GD BREAST BX RT BIRAD Routine 03/01/2024 7:16 AM MS SQL DEVELOPER Breast mass, right PATHOLOGY Routine 03/01/2024 12:00 AM MS SQL DEVELOPER Breast mass, right LIPID PANEL Routine 12/05/2023 [...] MG DIAGNOSTIC RT DIGI (03/01/2024 7:24 AM MS SQL DEVELOPER) Anatomical Region Laterality Modality Breast Right Mammography 03/01/2024 7:56 AM MS SQL DEVELOPER Impressions 03/01/2024 8:01 AM MS SQL DEVELOPER IMPRESSION: Ultrasound-guided right breast biopsy performed by Dr. Bob. Postbiopsy changes as above. Ordered By: LORI BOB Interpreted By: Zack Fortune, 03/01/2024 7:56 AM Narrative 03/01/2024 8:01 AM MS SQL DEVELOPER [place] [address] EXAMINATION: MG DIAGNOSTIC RT DIGI, US GD BREAST BX RT BIRAD [id number] INDICATIONS: Unspecified lump in the right breast, [...] BREAST BX RT BIRAD (03/01/2024 7:16 AM MS SQL DEVELOPER) Anatomical Region Laterality Modality Breast Right Ultrasound RIGHT BREAST STRUCTURE / Unknown 03/01/2024 7:56 AM MS SQL DEVELOPER Impressions 03/01/2024 8:01 AM MS SQL DEVELOPER IMPRESSION: Ultrasound-guided right breast biopsy performed by Dr. Bob. Postbiopsy changes as above. Ordered By: LORI BOB Interpreted By: Zack Fortune, 03/01/2024 7:56 AM Narrative 03/01/2024 8:01 AM MS SQL DEVELOPER [address] [address] EXAMINATION: MG DIAGNOSTIC RT DIGI, US GD BREAST BX RT BIRAD [id number] INDICATIONS: Unspecified lump in the right breast, [...] Final Result * Pathology (03/01/2024 12:00 AM MS SQL DEVELOPER) PATHOLOGY [facility] Department of Laboratory Medicine [address] [place] [address] , extension [phone] Pathology Report Addendum Surgical Pathology Report Name: NERI ELIZONDO Specimen #: [id number] Age: 9 1975 (Age: 48) Location: [facility] Sex: F Procedure Date: 03/01/2024 Hospital #: [id number] Date Received: 03/01/2024 Date Reported: Provider: LORI [...] Gross examination (when applicable) was performed at [facility], [address] [place] [address]. This case was interpreted and signed out at [facility], [address] [place] [address]. FINAL DIAGNOSIS: Breast, right 9:00, biopsy: -Benign [...] tests were developed by and performed at [facility], [address] [place] [address]. All tests reported here have not been cleared or approved by the U.S. Food and Drug Administration (FDA). This laboratory is regulated under CLIA as qualified to perform high-complexity testing. These tests are used for clinical purposes. They should not be regarded as investigational or for research. Positive and negative controls show appropriate reactivity. ALETHA LOMBARDI MD [facility] 03/01/2024 03/01/2024 12: 24 PM MS SQL DEVELOPER Comment:Right breast, needle biopsies 9:00 Lori Bob MD PATHOLOGY/CYTOLOGY ORDERABLES Final Result Performing Organization Address City/[facility]/ZIP Co de Phone Number [facility] [address] [place] [address], [place] [phone] [id number] * (ABNORMAL) HEMOGLOBIN, GLYCOSYLATED (12/05/2023 9:24 AM CDT) HGB A1C 6.4(H) 4.5 - 6.2 % 12/05/2023 3:39 PM CDT [facility] ESTIMATED AVG GLUCOSE 137(H) 74 - 106 MG/DL 12/05/2023 3:39 PM CDT [facility] 12/05/2023 9:24 AM CDT Viridiana Zaidi NP LABORATORY Final Res ult Performing Organization Address City/[facility]/ZIP Co de Phone Number [facility] [address] [place] [address], [place] [phone] * LIPID PANEL (12/05/2023 9:24 AM CDT) CHOLESTEROL 166 <200 MG/DL 12/05/2023 3:34 PM CDT [facility] TRIGLYCERIDES 111 <150 MG/DL 12/05/2023 3:34 PM CDT [facility] HDL 67 >40 MG/DL 12/05/2023 3:34 PM CDT [facility] LDL-C 77 <100 MG/DL 12/05/2023 3:34 PM CDT [facility] VLDL CALCULATION 22 5 - 28 MG/DL 12/05/2023 3:34 PM CDT [facility] CHOL/HDL RATIO 2.5 0.0 - 4.0 12/05/2023 3:34 PM CDT [facility] LDL/HDL 1.1 0.41 - 2.13 12/05/2023 3:34 PM CDT [facility] NON HDL CHOLESTEROL 99 <140 MG/DL 12/05/2023 3:34 PM CDT [facility] 12/05/2023 9:24 AM CDT us Viridiana Zaidi LATIN DANCE INSTRUCTOR LABORATORY Final Res ult [facility] [address] [place] [address], * HEPATITIS C ANTIBODY W/RFX TO HCV [...] a test for HCV RNA (test code 82087) is suggested. 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
--- OUTSIDE RECORDS SUMMARY | 2024-05-25 13:22 | XMS_ITS | Encounter Summary ---
Author Organization [facility] Address [facility] [place] [address] Care Team Providers Care Title Vehicle Service Attendant Name Role Phone Viridiana Zaidi NP Primary Care Provider [phone] Encounter Details Date Type Department Care Team (Late st Contact Info) Description 01/04/2023 qLearning Message Enc [facility] Family Medicine - [place] [address] [facility] [address] [place] [phone] [place], [facility] Provider Reply from Viridiana Social History [...] PM CDT [facility] [place] [address] Conner Bob MD [address] [phone] 07/02/2024 1:00 PM CDT Appointment [facility] [address] [place] [address] Conner Bob MD [address] [facility] [address] [place] [address] documented as of this encounter Visit Diagnoses Not on filedocumented in this encounter Additional Health Concerns Infection Onset Date Last Indicated Resolved Time MRSA 11/21/2016 11/21/2016 documented as of this encounter Care Teams Title Vehicle Service Attendant Relationship Specialty Start Date End Date Viridiana Zaidi NP [address] [place] [address] PCP - General NURSE PRACTITIONER 06/17/21 documented as of this encounter
--- OUTSIDE RECORDS SUMMARY | 2024-05-25 13:22 | XMS_ITS | Encounter Summary ---
Author Organization [facility] Address [facility] [place] [address] Care Team Providers Care Electrician Supervisor Airplane Name Role Phone Viridiana Zaidi NP Primary Care Provider [phone] Encounter Details Date Type Department Care Team (Late st Contact Info) Description 12/01/2022 [employer] Message Enc [facility] Family Medicine - [place] [address] [facility] [address] [place] [phone] [facility] Provider 1 week f/u Social History Tobacco [...] Info) Description 07/02/2024 12:30 PM CDT Appointment [facility] [address] [place], [place] [phone] Conner Bob MD [facility] [address] [phone] 07/02/2024 1:00 PM CDT Appointment [facility] [address] [facility] [place] [address] Conner Bob MD [address] [facility] [address] [place], [place] [address] documented as of this encounter Visit Diagnoses Not on filedocumented in this encounter Additional Health Concerns Infection Onset Date Last Indicated Resolved Time MRSA 11/21/2016 11/21/2016 documented as of this encounter Care Teams Electrician Supervisor Airplane Relationship Specialty Start Date End Date Viridiana Zaidi NP [address] [place] [address] PCP - General NURSE PRACTITIONER 06/17/21 documented as of this encounter
--- OUTSIDE RECORDS SUMMARY | 2024-05-25 13:22 | XMS_ITS | Encounter Summary ---
Author Organization [facility] Address [address] [place] [address] Care Team Providers Care Food Consultant Name Role Phone Viridiana Zaidi NP Primary Care Provider [phone] Encounter Details Date Type Department Care Team (Late Contact Info) Description 12/12/2023 [employer] Message Enc [facility] Family Medicine - [place] [address] [facility] [address] [place] [phone] Viridiana Zaidi, SENIOR LINUX ADMINISTRATOR [address] [place] [address] Anemia Social History Tobacco Use Types Packs/Day [...] Info) Description 07/02/2024 12:30 PM CDT Appointment [facility] [address] [facility] [place], [place] [phone] Conner Bob MD [address] [place] [address] 07/02/2024 1:00 PM CDT Appointment [facility] [address] [facility] [address] [place] [address] Conner Bob MD [address] [facility] [address] [place], [place] [address] documented as of this encounter Visit Diagnoses Not on filedocumented in this encounter Additional Health Concerns Infection Onset Date Last Indicated Resolved Time MRSA 11/21/2016 11/21/2016 documented as of this encounter Care Teams Food Consultant Relationship Specialty Start Date End Date Viridiana Zaidi NP [address] [place] [address] PCP - General NURSE PRACTITIONER 06/17/21 documented as of this encounter
--- NOTE | 2024-05-25 13:25 | PC.NURSE ---
Patient states she is having pain when trying to have a bowel movement. Patient states pain gets worse when standing.
[2024-05-25 13:32] VITALS: BP 141/93; PULSE 80; RESP 13; O2SAT 100
--- NOTE | 2024-05-25 13:39 | ED_ITS ---
HPI - General Adult General Chief complaint: Abdominal Pain Stated complaint: llq pain Time Seen by Provider: 05/25/24 13:10 History of Present Illness HPI narrative: 48-year-old female present to the emergency department for evaluation for rectal pain and left lower quadrant pain. Patient did have a colonoscopy on 05/[address] Higgins as part of a normal health screening. Patient states that she was passing large amounts of flatus over the last few days but that this has begun to improve. Patient reports last night she had intense left lower quadrant pain while attempting have a bowel movement. Patient states she did pass stool but did not look to see if there is any blood in stool. Patient felt that she was having increased rectal pressure with having a bowel movement. Related Data Home Medications ?Medication ?Instructions ?Recorded ?Confirmed ?Last Taken ?Type hydrochlorothiazide 12.5 mg capsule 12.5 mg PO DAILY 01/08/23 05/08/24 Unknown History gabapentin 100 mg capsule 100 mg PO DIRECTED 04/14/23 05/08/24 Unknown History valacyclovir 500 mg tablet 500 mg PO DIRECTED 04/14/23 05/08/24 Unknown History Allergies Allergy/AdvReac Type Severity Reaction Status Date / Time No Known Allergies Allergy Verified 05/25/24 13:39 Review of Systems 2 Review of Systems: All systems reviewed & are unremarkable except as noted in HPI and below PMFSH Past Medical History Medical History Colon cancer screening Diabetes Genital herpes Hypovitaminosis D Lymphocytosis High cholesterol Vision abnormalities Bakers cyst Allergic rhinitis Knee pain Atypical chest pain Asthma Essential hypertension IFG (impaired fasting glucose) Hepatic steatosis GERD (gastroesophageal reflux disease) Pre-diabetes HLD (hyperlipidemia) Hypertension Surgical History Surgical History H/O tubal ligation History of reduction mammoplasty H/O: hysterectomy Family History Family History Mother Hypertension Diabetes mellitus Family history of alcoholism Family history of Alzheimer's disease Social History Social History Smoking status: Never smoker Second hand tobacco smoke exposure: No Alcohol intake: never Alcohol use details: Occasional Substance use: never Substance use type: does not use Lack of Transportation: No Lack of Food: Never True Current Housing: I Have Housing Concerned About Future Housing: No Difficulty Paying Gas/Electric Bills: No Difficulty Paying for Meds: No Currently Unemployed: No Education: Bachelor's Degree Difficulty w/ Childcare or Family Care: No Living arrangements: with family Gender identity (if verbalized by the patient): Female Sexual Orientation (if Verbalized by the Patient): Straight or Heterosexual Spiritual care concerns: No Exam 2 Narrative: APPEARANCE: Well appearing, no pain, no distress, well-nourished. HEAD: normocephalic, atraumatic. EYES: PERRLA/EOMI, conjunctivae clear. NOSE: Normal no drainage EARS:TMS clear with good light reflex. THROAT: Pharynx clear, no exudate. NECK: Supple. No adenopathy, no masses. RESPIRATORY: Airway patent, respirations nonlabored. Clear to auscultation bilaterally, no rales, rhonchi, wheezing. CARDIOVASCULAR: Regular rate and rhythm without murmurs rubs or gallops. ABDOMINAL: Mild left lower quadrant abdominal tenderness to palpation Rectal exam: Hemoccult negative with no mass or stool ball and rectal vault. MUSCULOSKELETAL: Moves all extremities. Strength/ROM intact, No edema, No calf tenderness. NEURO: Alert. Cranial nerves II through XII intact. Grossly intact SKIN: Warm, dry. Normal Color Course Vital Signs Vital signs: Vital Signs Temperature 97.7 F 05/25/24 13:00 Pulse Rate 87 05/25/24 13:00 Respiratory Rate 18 05/25/24 13:00 Blood Pressure 142/85 H 05/25/24 13:00 Pulse Oximetry 98 05/25/24 13:00 Oxygen Delivery Room Air 05/25/24 13:00 Temperature 97.7 F 05/25/24 13:00 Pulse Rate 75 05/25/24 15:45 Respiratory Rate 16 05/25/24 15:45 Blood Pressure 117/67 05/25/24 14:01 Pulse Oximetry 100 05/25/24 15:45 Oxygen Delivery Room Air 05/25/24 13:00 Medical Decision Making MDM Narrative Medical decision making narrative: 48-year-old female present to the emergency department for evaluation for left lower quadrant pain after a recent colonoscopy. Patient had a negative digital rectal exam with no fecal stool ball and Hemoccult negative. Patient was afebrile with no leukocytosis and hemoglobin of 10.9. This is not far from her previous baseline. Patient's INR is 1.0. Patient had no significant abnormalities on her CMP, patient did have mild elevation of AST and ALT but this is also similar to baseline. UA was negative for infection. CT abdomen pelvis with contrast showed Moderate esophagitis/gastritis, Hepatic steatosis, Possible cystitis, correlate with urinalysis, Small volume pelvic fluid, within physiologic range. Differential Diagnosis Differential Diagnosis: colitis, diverticulitis, viscous injury, constipation Vital Signs Vital Signs: Vital Signs Temperature 97.7 F 05/25/24 13:00 Pulse Rate 87 05/25/24 13:00 Respiratory Rate 18 05/25/24 13:00 Blood Pressure 142/85 H 05/25/24 13:00 Pulse Oximetry 98 05/25/24 13:00 Oxygen Delivery Room Air 05/25/24 13:00 Temperature 97.7 F 05/25/24 13:00 Pulse Rate 75 05/25/24 15:45 Respiratory Rate 16 05/25/24 15:45 Blood Pressure 117/67 05/25/24 14:01 Pulse Oximetry 100 05/25/24 15:45 Oxygen Delivery Room Air 05/25/24 13:00 Lab Data Lab results reviewed: Yes I reviewed the patient's lab results. 05/25/24 13:40 05/25/24 13:40 Labs: Lab Results 05/25/24 05/25/24 05/25/24 Range/Units 13:40 14:55 14:57 WBC 8.8 (4.5-10.0) K/mm3 RBC 3.61 L (4.2-5.4) M/mm3 Hgb 10.9 L (12.0-15.0) g/dL Hct 33.3 L (37.0-47.0) % MCV 92.2 (80-100) fl MCH 30.2 (26-34) pg MCHC 32.7 (32-36) g/dl RDW 12.0 (11.5-14.5) % Plt Count 337 (150-375) k/mm3 MPV 9.2 (7.4-10.4) fl Immature Gran % (Auto) 0.2 (0-0.5) % Neut % (Auto) 40.9 L (45.5-73.1) % Lymph % (Auto) 50.5 H (18.3-44.2) % Isabel[place] % (Auto) 6.4 (2.6-8.5) % Eos % (Auto) 1.8 (0-4.4) % Baso % (Auto) 0.2 (0.2-1.2) % Lymph # (Auto) 4.44 H (0.9-3.2) K/mm3 Isabela # (Auto) 0.6 (0.1-0.6) K/mm3 Eos # (Auto) 0.2 (0-0.3) K/mm3 Baso # (Auto) 0.0 (0.0-0.1) K/mm3 Abs Immat Gran (auto) 0.02 (0.00-0.031) K/mm3 Absolute Neuts (auto) 3.6 (1.3-6.7) K/mm3 Absolute Nucleated RBC 0.000 (0.0-0.012) K/mm3 Nucleated RBC % 0.0 (0.0-0.2) % PT 13.1 (11.1-14.7) Seconds INR 1.0 APTT 25.4 (22.3-36.8) Seconds Sodium 139 (137-145) mmol/L Potassium 3.9 (3.4-5.0) mmol/L Chloride 101 (98-107) mmol/L Carbon Dioxide 28 (22-30) mmol/L Anion Gap 10 (4-12) mmol/L BUN 5 L (7-17) mg/dL Creatinine 0.54 L (0.7-1.0) mg/dL Estim Creat Clear Calc Not Reportable Estimated GFR > 60 (59 - ) Glucose 86 (65-110) mg/dL Lactic Acid 1.1 (0.7-2.0) mmol/L Calcium 9.1 (8.4-10.2) mg/dL Total Bilirubin 0.6 (0.2-1.3) mg/dL AST 43 H (14-36) U/L ALT 61 H (6-35) U/L Alkaline Phosphatase 87 (38-126) U/L Total Protein 8.0 (6.3-8.2) g/dL Albumin 4.3 (3.5-5.1) g/dL Urine Color Yellow (Yellow) Urine Appearance Clear (Clear) Urine pH 5.5 (5.0-9.0) Ur Specific [place] > 1.045 H (1.001-1.035) Urine Protein Negative (Negative) mg/dL Urine Glucose (UA) Negative (Negative) mg/dL Urine Ketones Negative (Negative) mg/dL Ur Blood (Man) Negative (Negative) Urine Nitrate Negative (Negative) Urine Bilirubin Negative (Negative) Urine Urobilinogen 0.2 (<2.0) mg/dL Leukocyte Esterase Rfl Negative (Negative) LORIE/UL POC Urine HCG, Qual Negative (Negative) Imaging Data Radiologist's impression: Impressions Abdomen/Pelvis CT 05/25/24 14:31 IMPRESSION: Moderate esophagitis/gastritis. Hepatic steatosis. Possible cystitis, correlate with urinalysis. Small volume pelvic fluid, within physiologic range. Discharge Plan Discharge Clinical Impression: Acute left lower quadrant pain Patient Disposition: Home, Self-Care Condition: Stable Instructions: Antibiotic Form, Abdominal Pain (ED) Additional Instructions: Clear liquid diet for the next 1-3 days. Ibuprofen for pain control. Jackson as needed for additional pain control. Have close follow-up with your primary care physician. If you have any worsening symptoms then please call or return to the emergency department. Patient Language: Kiswahili Prescriptions: New hydrocodone-acetaminophen 5-325 mg tablet 1 tablet PO Q12H PRN (Reason: pain) Qty: 10 0RF No Action valacyclovir 500 mg tablet 500 mg PO DIRECTED gabapentin 100 mg capsule 100 mg PO DIRECTED hydrochlorothiazide 12.5 mg capsule 12.5 mg PO DAILY Saline Nasal Mist 3 % aerosol,spray 2 spray intranasal TID Qty: 213 0RF ondansetron 4 mg tablet,disintegrating 4 mg PO Q8H PRN (Reason: nausea and vomiting) Qty: 10 0RF atorvastatin 20 mg tablet 20 mg PO DAILY Qty: 90 1RF metformin 500 mg tablet 500 mg PO BID Qty: 120 1RF amlodipine 10 mg tablet See Rx Instructions .ROUTE .COMPLEX Qty: 90 1RF Dose Instruction: TAKE 1 TABLET BY MOUTH DAILY Rx Instructions: TAKE 1 TABLET BY MOUTH DAILY metoprolol tartrate 100 mg tablet See Rx Instructions .ROUTE .COMPLEX Qty: 180 1RF Dose Instruction: TAKE 1 TABLET BY MOUTH TWICE DAILY Rx Instructions: TAKE 1 TABLET BY MOUTH TWICE DAILY Follow-up/Referrals: Dyan,Viridiana Agustin, MARC [Primary Care Provider] -
[2024-05-25 13:45] LABS: Basophils Percent Auto 0.2 % (0.2-1.2); Eosinophils Absolute Auto 0.2 K/mm3 (0-0.3); Eosinophils Percent Auto 1.8 % (0-4.4); Hematocrit 33.3 % (37.0-47.0); Hemoglobin 10.9 g/dL (12.0-15.0); Immature Granulocyte Absolute 0.02 K/mm3 (0.00-0.031); Immature Granulocyte Percent A 0.2 % (0-0.5); Lymphocytes Absolute Auto 4.44 K/mm3 (0.9-3.2); Lymphocytes Percent Auto 50.5 % (18.3-44.2); Mean Corpuscular HGB Conc 32.7 g/dl (32-36); Mean Corpuscular Hemoglobin 30.2 pg (26-34); Mean Corpuscular Volume 92.2 fl (80-100); Mean Platelet Volume 9.2 fl (7.4-10.4); Monocytes Absolute Auto 0.6 K/mm3 (0.1-0.6); Monocytes Percent Auto 6.4 % (2.6-8.5); Neutrophils Absolute Auto 3.6 K/mm3 (1.3-6.7); Neutrophils Percent Auto 40.9 % (45.5-73.1); Platelet Count Result 337 k/mm3 (150-375); Red Blood Count 3.61 M/mm3 (4.2-5.4); White Blood Count 8.8 K/mm3 (4.5-10.0)
[2024-05-25] MEDS: HYDROmorphone HCL INJ (*CRX) 1 MG/ML SYR 0.5 MG IV PUSH (13:45)
[2024-05-25] MEDS: SODIUM CHLORIDE 0.9% IV 1,000 ML 999 ML IV CONT (13:45)
[2024-05-25 13:57] LABS: Prothrombin Time 13.1 Seconds (11.1-14.7)
[2024-05-25 13:58] LABS: Alanine Aminotransferase 61 U/L (6-35); Albumin Level 4.3 g/dL (3.5-5.1); Alkaline Phosphatase 87 U/L (38-126); Anion Gap 10 mmol/L (4-12); Aspartate Amino Transferase 43 U/L (14-36); Bilirubin,Total 0.6 mg/dL (0.2-1.3); Blood Urea Nitrogen 5 mg/dL (7-17); Calcium 9.1 mg/dL (8.4-10.2); Carbon Dioxide 28 mmol/L (22-30); Chloride 101 mmol/L (98-107); Estimated Glomerular Filt Rate > 60; Glucose 86 mg/dL (65-110); Lactic Acid Reflex 1.1 mmol/L (0.7-2.0); Partial Thromboplastin Time 25.4 Seconds (22.3-36.8); Potassium 3.9 mmol/L (3.4-5.0); Sodium 139 mmol/L (137-145)
[2024-05-25 14:01] VITALS: BP 117/67; PULSE 68; RESP 16; O2SAT 100
[2024-05-25 14:59] LABS: BEDSIDEPREGUCG Negative (Negative)
[2024-05-25 15:10] LABS: Add Urine Microscopic? NO; Appearance Urine Clear (Clear); Bilirubin Urine Negative (Negative); Blood Urine Negative (Negative); Color Urine Yellow (Yellow); Glucose Urine UA Negative (Negative); Ketones Urine Negative (Negative); Leukocyte Esterase Ur Negative LEU/UL (Negative); Nitrate Urine Negative (Negative); Protein Urine Negative (Negative); Specific Grav Ur > 1.045 (1.001-1.035); Urobilinogen Urine 0.2 mg/dL (<2.0); pH Urine 5.5 (5.0-9.0)
[2024-05-25 15:16] VITALS: PULSE 77; RESP 16; O2SAT 100
[2024-05-25 15:33] VITALS: PULSE 79; RESP 15; O2SAT 100
[2024-05-25 15:45] VITALS: PULSE 75; RESP 16; O2SAT 100
== END 2024-05-25 16:35 | disposition home or self-care (01) ==
PROVIDERS: Emergency Provider Emergency Medicine; PCP Nurse Practitioner
DX: R10.32 Left lower quadrant pain (principal); I10 Essential (primary) hypertension; E11.9 Type 2 diabetes mellitus without complications; E55.9 Vitamin D deficiency, unspecified; E78.00 Pure hypercholesterolemia, unspecified; J45.909 Unspecified asthma, uncomplicated; K21.9 Gastro-esophageal reflux disease without esophagitis; K76.0 Fatty (change of) liver, not elsewhere classified; Z90.49 Acquired absence of other specified parts of digestive tract; K20.90 Esophagitis, unspecified without bleeding; K29.70 Gastritis, unspecified, without bleeding; Z79.899 Other long term (current) drug therapy; Z79.84 Long term (current) use of oral hypoglycemic drugs
CPT/HCPCS: 36415; 74177; 80053; 81003; 81025; 83605; 85025; 85610; 85730; 96361; 96374; 99284; J1171; J7030; Q9967

== ENCOUNTER 2024-06-07 22:23 | Emergency (ER) | payer OTHER, SELFPAY ==
--- OUTSIDE RECORDS SUMMARY | 2024-06-07 22:23 | XMS_ITS | Encounter Summary ---
Author Organization [facility] Address [address] [place] [address] Care Team Providers Care Bath Mixer Name Role Phone Viridiana Zaidi NP Primary Care Provider [phone] Encounter Details Date Type Department Care Team (Late st Contact Info) Description 05/30/2024 Urban [employer]able H2t Message Enc [facility] Family Medicine - [place] [address] [facility] [address] [place] [address] [phone] Viridiana Zaidi, SURFACING MACHINE OPERATOR [address] [place] [address] Bladder Social History Tobacco Use Types Packs/Day Years Used Date Smoking Tobacco: Never Passive Smoke Exposure: Never Smokeless Tobacco: Never Comments:The provider can pr ovide you with more information about quitting. Alcohol Use Standard Drinks/Week Comments No 0 (1 standard drink = 0.6 oz pur e alcohol) PHQ-2 Answer Date Recorded Patient Health Questionnaire-2 Score 0 05/27/2024 Comments No Sex and Gender Information Value Date Recorded Sex Assigned at Not on file Legal Sex Female 1:46 AM CDT Gender Identity Not on file Sexual Orientation Not on file documented as of this encounter Plan of Treatment Upcoming Encounters Date Type Department Care Team (Late Contact Info) Description 07/02/2024 12:30 PM CDT Appointment [facility] [place] [place], [place] [phone] Conner Bob MD [address] [place] [address] 07/02/2024 1:00 PM CDT Appointment [facility] [address] [place] [address] Conner Bob MD [address] [facility] [address] [place], [place] [address] documented as of this encounter Visit Diagnoses Not on filedocumented in this encounter Additional Health Concerns Infection Onset Date Last Indicated Resolved Time MRSA 11/21/2016 11/21/2016 documented as of this encounter Care Teams Bath Mixer Relationship Specialty Start Date End Date Viridiana Zaidi NP [address] [place] [address] PCP - General NURSE PRACTITIONER 06/17/21 documented as of this encounter
--- OUTSIDE RECORDS SUMMARY | 2024-06-07 22:23 | XMS_ITS | Patient Health Summary ---
Author Organization [facility] Address [address] [facility] [place] [address] Care Team Providers Care Biblical Studies Professor Name Role Phone Farhad Fuchs MD Primary Care Provider [phone] Note from [facility],non-owned Affiliates and Associated Physician Practices is amultiple site organization consisting of ambulatory clinics and hospital sitesin [place], [place], [place] and [place]. This disclosure is being madepursuant to the Care Everywhere program and may not contain all information available regarding this patient. Last updated 18.[facility] Allergies * Lisinopril(Swelling) Medications * Be aware [...] Comments Blood Pressure 128/76 03/09/2022 10:42 AM DIESEL MAINTENANCE TECHNICIAN Pulse 82 01/08/2016 7:54 AM CDT Temperature 36.6 C (97.8 F) 03/09/2022 10:42 AM DIESEL MAINTENANCE TECHNICIAN Respiratory Rate 16 01/08/2016 7:54 AM CDT Oxygen Saturation 100% 01/08/2016 7:54 AM CDT Inhaled Oxygen Concentration - - Weight 85.1 kg (187 lb 9.6 oz) 03/09/2022 10:42 AM DIESEL MAINTENANCE TECHNICIAN Height 157.5 cm (5' 2 ) 03/09/2022 10:42 AM DIESEL MAINTENANCE TECHNICIAN Body Mass Index 34.31 03/09/2022 10:42 AM DIESEL MAINTENANCE TECHNICIAN Procedures * URINALYSIS AUTO - POINT OF [...] POINT OF CARE (AMB) [facility] (03/09/2022) Pathologist [facility] Glucose UA neg Bilirubin UA POCT neg Ketones UA POCT neg Specific [place] UA 1.020 Blood Urine POCT neg pH UA 6.0 Protein UA neg Urobilinogen UA 0.2 Nitrite UA neg WBC UA neg Urine URINE / Unknown 03/09/2022 Bertram Graves MD LAB - POINT OF CARE ORDERABLES * CULTURE URINE (03/09/2022) Pathologist [facility] Culture QUEST Comment: CULTURE, URINE, ROUTINE Micro Number: [id number] Test Status: Final Specimen Source: Urine clean Specimen Quality: Adequate Result: No Growth Test Performed at: [address] [address] JAMES QUEEN MD Urine URINE SPECIMEN OBTAINED BY CLEAN CATCH PROCEDURE / Unknown 03/09/2022 03/10/2022 1:50 AM DIESEL MAINTENANCE TECHNICIAN Bertram Graves MD LAB - MICROBIOLOGY O RDERABLES [address] [address] * CARDIAC RHYTHM STRIP ORDER (01/12/2016 10:26 PM CDT) Narrative 01/12/2016 10:26 PM CDT Ordered by an unspecified provider. Scanned Document CARDIAC SERVICES ORD ERABLES * CARDIAC EKG ORDER (01/09/2016 9:42 PM CDT) Narrative 01/09/2016 9:42 PM CDT Ordered by an unspecified provider. Scanned Document CARDIAC SERVICES ORD ERABLES * ECHOCARDIOGRAM 2D WITH DOPPLER (01/08/2016 9:37 AM CDT) 01/08/2016 9:37 AM CDT Narrative [facility] - 01/08/2016 1:57 PM CDT [facility] [id number] [place] [id number] Transthoracic Echocardiogram 2D, M-mode, Doppler, and Color Doppler Patient: JOHANNA PALMER MR number: [id number] Height: 62 in Weight: 184 lb BSA: 1.85 m Study date: 08-Jan-2016 : 1975 Age: 40 years Gender: Female Race: Black Diagnoses: R41.82 - Altered mental status, unspecified Reading Physician: Bob Marie MD Referring Physician: Michaela Winters M.D VP OF DIGITAL MARKETING: Kamar Salinas. [facility] Cardiology Group: [facility] Student: Rhys Rowe Summary: - Clinical [...] Procedure: The study was performed in the [facility]. This was a routine study. Room 753 [...] MV A Marquez: 0.6 m/s MV Dec [place]: 3.9 m/s2 MV E Marquez: 0.8 m/s MV E/A Ratio: 1.3 RVSP: 41.6 mmHg Septal e': 0.1 m/s Prepared and signed by Bob Marie MD Signed 08-Jan-2016 13:56:26 Procedure Note Bob Marie MD - 01/08/[address] [address] Transthoracic Echocardiogram 2D, M-mode, Doppler, and Color Doppler Patient: JOHANNA PALMER MR number: [id number] Height: 62 in Weight: 184 lb BSA: 1.85 m Study date: 08-Jan-2016 : 1975 Age: 40 years Gender: Female Race: Black Diagnoses: R41.82 - Altered mental status, unspecified Reading Physician: Bob Marie MD Referring Physician: Michaela Winters M.D VP OF DIGITAL MARKETING: Kamar Salinas. [facility] Cardiology Group: [facility] Student: Rhys Rowe Summary: - Clinical [...] Procedure: The study was performed in the [facility]. This was a routine study. Room 753 [...] MV A Marquez: 0.6 m/s MV Dec [place]: 3.9 m/s2 MV E Marquez: 0.8 m/s MV E/A Ratio: 1.3 RVSP: 41.6 mmHg Septal e': 0.1 m/s Prepared and signed by Bob Marie MD Signed 08-Jan-2016 13:56:26 Michaela Winters MD ECHO ORDERABLES [facility] * (ABNORMAL) GLUCOSE - POINT OF CARE (01/08/2016 7:28 AM CDT) Only the most recent of3 resultswithin the time period is included. Glucose WB/POC 137(H) 70 - 106 mg/dL 01/08/2016 8:13 AM CDT [facility] Blood BLOOD SPECIMEN / Unknown 01/08/2016 7:28 AM CDT 01/08/2016 8:13 AM CDT Nadira Muhammad MD LAB - POINT OF CARE ORDERABLES [facility] [address] [place] [id number] * BASIC METABOLIC PANEL (CALCIUM TOTAL) (01/08/2016 4:02 AM CDT) Only the most recent of2 resultswithin the time period is included. Glucose 95 74 - 106 mg/dL 01/08/2016 5:06 AM CDT [facility] Sodium 139 136 - 145 mmol/L 01/08/2016 5:06 AM CDT [facility] Potassium 3.8 3.5 - 5.1 mmol/L 01/08/2016 5:06 AM CDT [facility] Chloride 104 98 - 107 mmol/L 01/08/2016 5:06 AM CDT [facility] CO2 28 22 - 31 mmol/L 01/08/2016 5:06 AM CDT [facility] Calcium 8.9 8.5 - 10.1 mg/dL 01/08/2016 5:06 AM T [facility] Anion Gap 7 5 - 20 mmol/L 01/08/2016 5:06 AM CDT [facility] BUN 12 7 - 21 mg/dL 01/08/2016 5:06 AM CDT [facility] Creatinine 0.95 0.50 - 1.30 mg/dL 01/08/2016 5:06 AM T [facility] eGFR by MDRD >60 >60 mL/min/1.7 3m2 01/08/2016 5:06 AM CDT [facility] eGFR by MDRD >60 >60 mL/min/1.7 3m2 01/08/2016 5:06 AM CDT [facility] Blood BLOOD SPECIMEN / Unknown 01/08/2016 4:02 AM CDT 01/08/2016 4:35 AM CDT Michaela Winters MD LAB - CHEMISTRY ORDERABLES [facility] [address] [place] [address] * (ABNORMAL) URINALYSIS ROUTINE W/REFLEX TO CULTURE (01/07/2016 1:32 PM CDT) Color UA Yellow Straw, Yellow, Dark Yellow 01/07/2016 1:44 PM CDT [facility] Clarity UA Clear 01/07/2016 1:44 PM CDT [facility] Specific [place] UA >1.030(H) 1.005 - 1.030 01/07/2016 1:44 PM CDT [facility] pH UA 5.5 5.0 - 8.0 pH 01/07/2016 1:44 PM CDT [facility] Protein UA Negative Negative 01/07/2016 1:44 PM CDT [facility] Blood UA Negative Negative 01/07/2016 1:44 PM CDT [facility] Leukocyte UA Negative Negative 01/07/2016 1:44 PM CDT [facility] Nitrite UA Negative Negative 01/07/2016 1:44 PM CDT [facility] Glucose UA Negative Negative 01/07/2016 1:44 PM CDT [facility] Ketone UA Negative Negative 01/07/2016 1:44 PM CDT [facility] Bilirubin UA Negative Negative 01/07/2016 1:44 PM CDT [facility] Urobilinogen UA 0.2 0.1 - 1.0 EU/dL 01/07/2016 1:44 PM CDT [facility] Reflex Status Culture not indicated 01/07/2016 1:44 PM CDT [facility] Urine URINE SPECIMEN OBTAINED BY CLEAN CATCH PROCEDURE / Unknown 01/07/2016 1:32 PM CDT 01/07/2016 1:39 PM CDT Michaela Winters MD LAB - URINALYSIS ORDERABLES Performing Organization Address City/[facility]/ZIP Co de Phone Number [facility] [address] [place] [address] * HCG URINE QUALITATIVE (01/07/2016 1:32 PM CDT) [facility] hCG Qualitative Urine Negative Negative 01/07/2016 3:05 PM CDT [facility] Urine URINE / Unknown 01/07/2016 1 :32 PM CDT 01/07/2016 2:55 PM CDT Michaela Witners MD LAB - URINALYSIS ORDERABLES Performing Organization Address [facility] de Phone Number [facility] [id number] [place] [address] * DRUG SCREEN TOX URINE PANEL (01/07/2016 1:32 PM CDT) [facility] Amphetamines Screen Urine Not Detected Not Detected 01/07/2016 1:51 PM CDT [facility] Barbiturates Screen Urine Not Detected Not Detected 01/07/2016 1:51 PM CDT [facility] Benzodiazepines Screen Urine Not Detected Not Detected 01/07/2016 1:51 PM CDT [facility] Cannabinoids Screen Urine Not Detected Not Detected 01/07/2016 1:51 PM CDT [facility] Cocaine Screen Urine Not Detected Not Detected 01/07/2016 1:51 PM CDT [facility] Methadone Screen Urine Not Detected Not Detected 01/07/2016 1:51 PM CDT [facility] Opiate Screen Urine Not Detected Not Detected 01/07/2016 1:51 PM CDT [facility] Phencyclidine Screen Urine Not Detected Not Detected 01/07/2016 1:51 PM CDT [facility] Urine URINE / Unknown 01/07/2016 1 :32 PM CDT 01/07/2016 1:39 PM CDT Narrative [facility] - 01/07/2016 1:51 PM CDT [...] MD LAB - URINE CHEM ISTRY ORDERABLES [facility] [address] [place] [address] * CT ANGIO HEAD NECK STROKE (01/07/2016 [...] a normal course and caliber to the shinnecock of [place]. CT angiogram of the head: Basilar artery is patent. Posterior cerebral arteries are patent. Proximal middle and anterior cerebral arteries are patent. No focal stenoses are noted. Major dural venous sinuses are patent. Reconstructed images demonstrate a normal course and caliber to the [place] of [place]. No aneurysmal dilatation is identified. [...] a normal course and caliber to the shin[place] of [place]. CT angiogram of the head: Basilar artery is patent. Posterior cerebral arteries are patent. Proximal middle and anterior cerebral arteries are patent. No focal stenoses are noted. Major dural venous sinuses are patent. Reconstructed images demonstrate a normal course and caliber to the [place] of [place]. No aneurysmal dilatation is identified. [...] is performed with dynamic contrast injection with licensing representative axial images of the brain. 150 [...] is performed with dynamic contrast injection with licensing representative axial images of the brain. 150 [...] POINT OF ARE ORDERABLES Performing Organization Address [facility] Co de Phone Number [facility] PO[facility] [address] [place] [address] * PT WHOLE BLOOD - POINT OF CARE (01/07/2016 11:56 AM CDT) Pathologist [facility] QC Verified Yes Yes [facility] POC T [...] POINT OF ARE ORDERABLES Performing Organization Address [facility] Co de Phone Number [facility] [address] [place] [address] * NT-PRO BNP (01/07/2016 11:54 AM CDT) NT-proBNP 22.0 <300.0 pg/mL 01/07/2016 12:24 PM CDT [facility] Blood BLOOD SPECIMEN / Unknown 01/07/2016 11:54 AM CDT 01/07/2016 11:54 AM CDT Narrative [facility] - 01/07/2016 12:24 PM CDT [...] Michaela Winters MD LAB - CHEMISTRY ORDERABLES [facility] [address] [place] [address] * PROLACTIN (01/07/2016 11:54 AM CDT) Prolactin 9.60 ng/mL 01/07/2016 3:19 PM CDT [facility] Blood BLOOD SPECIMEN / Unknown 01/07/2016 11:54 AM CDT 01/07/2016 2:54 PM CDT Narrative [facility] - 01/07/2016 3:19 PM CDT Prolactin Reference Interval: Female Non: 2.80 - 29.20 ng/mL Female : 9.70 - 208.50 ng/mL Female Postmenopausal: 1.80 - 20.39 ng/mL Male: 2.10 - 17.70 ng/mL Michaela Winters MD LAB - CHEMISTRY ORDERABLES [facility] [address] [place] [address] * (ABNORMAL) CBC W AUTO DIFFERENTIAL (01/07/2016 11:54 AM CDT) WBC 8.1 4.4 - 10.7 x10E9/L 01/07/2016 12:05 PM CDT [facility] WBC Corrected x10E9/L 01/07/2016 12:05 PM CDT [facility] RBC 3.90 3.80 - 5.20 x10E12/L 01/07/2016 12:05 PM CDT [facility] Hemoglobin 12.0 12.0 - 15.6 gm/dL 01/07/2016 12:05 PM CDT [facility] Hematocrit 35.1(L) 35.9 - 45.5 % 01/07/2016 12:05 PM CDT [facility] MCV 90.0 80.7 - 98.3 fl 01/07/2016 12:05 PM CDT [facility] MCH 30.8 26.7 - 34.0 pg 01/07/2016 12:05 PM CDT [facility] MCHC 34.2 30.8 - 35.9 gm/dL 01/07/2016 12:05 PM CDT [facility] Platelet Count 369 153 - 416 x10E9/L 01/07/2016 12:05 PM CDT [facility] RDW-CV 12.2 12.1 - 14.9 % 01/07/2016 12:05 PM CDT [facility] MPV 10.0 9.4 - 12.9 fl 01/07/2016 12:05 PM CDT [facility] Neutrophils % 38.2(L) 44.0 - 73.0 % 01/07/2016 12:05 PM CDT [facility] Lymphocytes % 50.7(H) 20.0 - 43.0 % 01/07/2016 12:05 PM CDT [facility] Monocytes % 6.9 5.0 - 13.0 % 01/07/2016 12:05 PM CDT [facility] Eosinophils % 3.5 0.0 - 6.0 % 01/07/2016 12:05 PM CDT [facility] Basophils % 0.5 0.0 - 2.0 % 01/07/2016 12:05 PM CDT [facility] Immature Granulocytes 0.2 0 - 1 % 01/07/2016 12:05 PM CDT [facility] Neutrophil Absolute 3.07 2.01 - 7.14 x10E9/L 01/07/2016 12:05 PM CDT [facility] Lymphocytes Absolute 4.09(H) 1.07 - 3.94 x10E9/L 01/07/2016 12:05 PM CDT [facility] Monocytes Absolute 0.56 0.26 - 1.07 x10E9/L 01/07/2016 12:05 PM CDT [facility] Eosinophils Absolute 0.28 0 - 0.47 x10E9/L 01/07/2016 12:05 PM CDT [facility] Basophils Absolute 0.04 0 - 0.08 x10E9/L 01/07/2016 12:05 PM CDT [facility] Immature Granulocytes Absolute 0.02 0.00 - 0.06 x10E9/L 01/07/2016 12:05 PM CDT [facility] nRBC Auto 0 /100 WBC 01/07/2016 12:05 PM CDT [facility] Blood BLOOD SPECIMEN / Unknown 01/07/2016 11:54 AM CDT 01/07/2016 11:54 AM CDT Michaela Winters MD LAB - HEMATOLOGY ORDERABLES Performing Organization Address City/State/[facility] Co de Phone Number [facility] [address] [place] [address] * CT HEAD NON CONTRAST [...] CDT) ABO O 01/07/2016 12:55 PM CDT [facility] Rh Type Positive 01/07/2016 12:55 PM CDT [facility] Antibody Screen Negative 01/07/2016 12:55 PM CDT [facility] Miscellaneous samples (specimen) BLOOD SPECIMEN / Unknown 01/07/2016 11:53 AM CDT 01/07/2016 11:53 AM CDT Michaela Winters MD LAB - BLOOD BANK ORDERABLES [facility] [address] * PT PTT PANEL (01/07/2016 11:53 AM CDT) PT 10.2 9.5 - 11.6 sec 01/07/2016 12:16 PM CDT [facility] INR 1.0 0.9 - 1.1 01/07/2016 12:16 PM CDT [facility] PTT 22.9 21.0 - 32.0 sec 01/07/2016 12:16 PM CDT [facility] Blood BLOOD SPECIMEN / Unknown 01/07/2016 11:53 AM CDT 01/07/2016 11:53 AM CDT Narrative [facility] - 01/07/2016 12:16 PM CDT Conventional Warfarin Anticoagulant Therapy: INR Reference Range: 2.0-3.0 Intensive Warfarin Anticoagulant Therapy: INR Reference Range: 2.5-3.5 Heparin Therapeutic Range for PTT: 47.7 - 68.6 seconds. Michaela Winters MD LAB - COAGULATIO N ORDERABLES Performing Organization Address [facility] Co de Phone Number [facility] [address] [place] [address] * MAGNESIUM BLOOD (01/07/2016 11:53 AM CDT) Pathologist [facility] Magnesium 1.9 1.6 - 2.6 mg/dL 01/07/2016 12:17 PM CDT [facility] Blood BLOOD SPECIMEN / Unknown 01/07/2016 11:53 AM CDT 01/07/2016 11:53 AM CDT Michaela Winters MD LAB - CHEMISTRY ORDERABLES Performing Organization Address [facility] de Phone Number [facility] [id number] [place] [address] * EKG 12-LEAD (01/07/2016 11:17 AM CDT) Ventricular Rate 64 BPM [facility] Atrial Rate 64 BPM [facility] P-R Interval 140 ms [facility] QRS Duration ms 84 ms [facility] Q-T Interval ms 420 ms [facility] QTC Calculation (Bezet) 433 ms [facility] Calculated P [place] 37 degrees [facility] Calculated R [place] 26 degrees [facility] Calculated T [place] -3 degrees [facility] Interpretation EKG Normal sinus rhythm Nonspecific T wave abnormality Abnormal ECG No previous ECGs available Confirmed by MD LORENZO, BOB ([id number]) on 01/08/2016 10:04:51 AM [facility] 01/07/2016 11:1 7 AM CDT 01/08/2016 10:04 AM CDT Michaela Winters MD ECG ORDERABLES Performing Organization Address [facility] Co de Phone Number [facility] MUSE * XR LUMBAR SPINE 2 [...] Volume Amnio 13 ml [facility] Interpretation [facility] Comment: FLM Immature ......... <= 39 mg/g Mature ......... >= 55 mg/g Results between 40 and 54 cannot be declared mature or immature and should be evaluated with caution. AMNIOTIC FLUID SPECIMEN / Unknown 10/05/2009 8:35 AM CDT 10/05/2009 10:52 AM CDT Jeff Damon MD LAB - BODY FLUID O RDERABLES [facility] [address] [place] [address] Care Teams Biblical Studies Professor Relationship Specialty Start Date End Date Farhad Fuchs MD PCP - General 01/15/18
--- OUTSIDE RECORDS SUMMARY | 2024-06-07 22:23 | XMS_ITS | Data Portability ---
Author Organization KAUSHAL ALTHEAScott Barroso Address [address] [place] [address] Assessment No assessment recorded. Plan of Treatment Reminders Order Date Submit Date Provider Last Modified By Organization Details Last Modified Time Details Appointments None recorded. Lab HbA1c (hemoglobi n A1c), blood 2016 017 [facility] (Lab), [address], [place], [address], 7 06:16:52 lipid panel w/ direct LDL, serum 2016 017 [facility] (Lab), [address], [place], [address], 7 20:10:49 BMP, serum or plasma 2016 017 [facility] (Lab), [address], [place], [address], 7 20:10:48 TSH, serum or plasma 2016 017 [facility] (Lab), [address], [place], [address], 7 07:19:43 CBC 2016 017 [facility] (Lab), [address], [place], [address], 7 18:56:52 lipid panel, serum 2016 017 [facility] (Lab), [address], [place], [address], 7 19:38:55 CMP, serum or plasma 2016 017 [facility] (Lab), [address], [place], [address], 7 19:38:15 HbA1c (hemoglobi n A1c), blood 2016 017 [facility] (Lab), [address], [place], [address], 7 09:22:37 glucose, fingerstic k, blood 2016 017 [facility] In-Office Order, Internal Use Only DO Not Attach Compendium DO Not Attach Compendium, Do Not Delete/merge, [id number] 7 15:02:38 Referral None recorded. Procedures None recorded. Surgeries None recorded. Imaging None recorded. Medication Orders penicillin V potassium 500 mg tablet 2017 018 [facility] #35694, [address], [place], [id number], 8 11:01:01 Tylenol-Co deine #3 300 mg-30 mg tablet 2017 018 [facility] #96534, [address], [place], [id number], 8 11:00:55 hydrochlor othiazide 25 mg tablet 2017 018 [facility], [address], [place], [id number], 8 11:01:07 metformin 500 mg tablet 2017 018 [facility] #20585, [address], [place], [place], [id number], 8 11:01:06 metoprolol tartrate 100 mg tablet 2017 018 [facility]76, [address], [place], [place], [id number], 8 11:01:06 atorvastat in 20 mg tablet 2017 018 [facility] #03460, [address], [place], [place], [id number], 8 11:01:16 hydrochlor othiazide 25 mg tablet 2016 017 [facility], [address], [place], [place], [id number], 7 15:53:40 metformin 500 mg tablet 2016 017 [facility]262, [address], [place], [place], [id number], 7 15:53:40 metoprolol tartrate 100 mg tablet 2016 017 [facility], [address], [place], [place], [id number], 7 15:53:40 cyclobenza mike 10 mg tablet 2016 017 [facility] #76978, [address], [place], [place], [id number], 7 15:53:39 [place] 5 mg-325 mg tablet 2016 017 [facility] #44627, [address], [place], [place], [id number], 7 14:47:18 atorvastat in 20 mg tablet 2016 017 [facility] #32382, [address], [place], [place], [id number], 7 15:53:40 hydrochlor othiazide 25 mg tablet 2016 017 [facility] #19132, [address], [place], [place], [id number], 7 12:42:57 metformin 500 mg tablet 2016 017 [facility] #16878, [address], [place], [place], [id number], 7 12:42:58 metoprolol tartrate 100 mg tablet 2016 017 [facility] #73643, [address], [place], [place], [id number], 7 12:42:58 cyclobenza mike 10 mg tablet 2016 017 [facility] #28186, [address], [place], [place], [id number], 7 12:42:56 [place] 5 mg-325 mg tablet 2016 017 [facility] #85787, [address], [place], [place], [id number], 7 12:00:51 atorvastat in 20 mg tablet 2016 017 [facility] #14376, [address], [place], [place], [id number], 7 12:42:56 hydrochlor othiazide 25 mg tablet 2016 017 [facility] #67491, [address], [place], [place], [id number], 7 08:12:46 metformin 500 mg tablet 2016 017 [facility]36427, [address], [place], [place], [id number], 7 08:12:47 metoprolol tartrate 100 mg tablet 2016 017 [facility] #70468, [address], [place], [place], [id number], 7 08:12:47 naproxen 500 mg tablet 2016 017 [facility] #32432, [address], [place], [place], [id number], 7 08:12:46 atorvastat in 20 mg tablet 2016 017 [facility]38191, [address], [place], [place], [id number], 7 08:12:49 metoprolol tartrate 100 mg tablet 2016 017 [facility] #[facility]2856, [address], [place], [place], [id number], 7 15:02:55 hydrochlor othiazide 25 mg tablet 2016 017 [facility]08427, [address], [place], [place], [id number], 7 15:02:48 fluoxetine 20 mg capsule 2016 017 [facility], [address], [place], [place], [id number], 7 15:02:47 [place] 5 mg-325 mg tablet 2016 017 [facility] #04462, [address], [place], [place], [id number], 7 15:02:38 Patient TargetsNo targets recorded. Patient Instructions Encounter Date Encounter Id Patient Instructions Last Modified By Organization Details Last Modified Time 08/03/2016 [id number] learning about high blood sugar Not available 08/03/2016 15:18:04 When You Want to Lose Weight: Care Instructions Not available 08/03/2016 15:18:04 back care and preventing injuries: care instructions Not available 08/03/2016 15:18:04 learning about high blood pressure Not available 08/03/2016 15:18:04 08/30/2016 [id number] learning about high blood sugar Not available 08/31/2016 09:35:46 When You Want to Lose Weight: Care Instructions Not available 08/31/2016 09:35:46 back care and preventing injuries: care instructions Not available 08/31/2016 09:35:46 learning about high blood pressure Not available 08/31/2016 09:35:46 high cholesterol : care instructions Not available 08/31/2016 09:35:46 11/04/2016 [id number] When You Want to Lose Weight: Care Instructions Not available 11/04/2016 12:56:56 back care and preventing injuries: care instructions Not available 11/04/2016 12:56:56 learning about high blood pressure Not available 11/04/2016 12:56:56 01/31/2017 [id number] learning about high blood sugar Not available 01/31/2017 17:02:36 When You Want to Lose Weight: Care Instructions Not available 01/31/2017 17:02:36 bronchitis: care instructions Not available 01/31/2017 17:02:36 back care and preventing injuries: care instructions Not available 01/31/2017 17:02:36 learning about high blood pressure Not available 01/31/2017 17:02:36 11/08/2017 [id number] tooth and gum pain: care instructions balbarcha [...] DO Not Attach Compendium, Do Not Delete/merge, [id number] 08/03/2016 15:00:04 08/04/19 17 08/03/2016 CBC WBC 8.0 K/uL 3.4-10 .8 Not Available [facility] (Lab) [address] [facility], [place], [address], 08/03/2016 18:56:51 08/04/19 17 08/03/2016 CBC red blood count 3.8 M/uL 4.2-5. 4 low Not Available [facility] (Lab) [address] [place], [address], 08/03/2016 18:56:51 08/04/19 17 08/03/2016 CBC hemoglobin 11.3 g/dL 11.5-1 5.5 low Not Available [facility] (Lab) [address] [place], [address], 08/03/2016 18:56:51 08/04/19 17 08/03/2016 CBC hematocrit 35.3 % 36.0-4 8.0 low Not Available [facility] (Lab) [address] [place], [address], 08/03/2016 18:56:51 08/04/1908/03/2016 CBC MCV 92 fL 80-95 Not Available [facility] (Lab) [address] [place], [address], 08/03/2016 18:56:51 08/04/19 17 08/03/2016 CBC MCHC 32 g/dL 32-36 Not Available [facility] (Lab) [address], [place], [address], 08/03/2016 18:56:51 08/04/19 17 08/03/2016 CBC platelets 359 K/uL 155-37 9 Not Available [facility] (Lab) [address], [place], [address], 08/03/2016 18:56:51 08/04/19 17 08/03/2016 CBC RDW 12.4 % 11.5-1 4.5 Not Available [facility] (Lab) [address] [facility], [place], [address], 08/03/2016 18:56:51 08/04/19 17 08/03/2016 CMP, serum or plasm a glucose, serum 92 mg/dL 65-99 Not Available [facility] ([facility] [address], [place], [address], 08/03/2016 19:38:15 08/04/19 17 08/03/2016 CMP, serum or plasm a BUN 6 mg/dL 8-26 low Not Available [facility] (Lab) [address], [place], [address], 08/03/2016 19:38:15 08/04/19 17 08/03/2016 CMP, serum or plasm a creatinine, serum 0.70 mg/dL 0.50-1 .40 Not Available [facility] (Lab) [address], [place], [address], 08/03/2016 19:38:15 08/04/19 17 08/03/2016 CMP, serum or plasm a BUN/creatnin e ratio 8.6 Not Available [facility] [address], [place], [address], 08/03/2016 19:38:15 08/04/19 17 08/03/2016 CMP, serum or plasm a sodium, serum 139.0 mEq/L 136.0- 144.0 Not Available [facility] (Lab) [address], [place], [address], 08/03/2016 19:38:15 08/04/19 17 08/03/2016 CMP, serum or plasm a potassium, serum 4.0 mmol/ L 3.5-5. 3 Not Available [facility] (Lab) [address], [place], [address], 08/03/2016 19:38:15 08/04/19 17 08/03/2016 CMP, serum or plasm a chloride, serum 99 mmol/ l 101-11 1 low Not Available [facility] (Lab) [address], [place], [address], 08/03/2016 19:38:15 08/04/19 17 08/03/2016 CMP, serum or plasm a carbon dioxide total 25.7 mmol/ L 21.0-3 2.0 Not Available [facility] (Lab) [address], [place], [address], 08/03/2016 19:38:15 08/04/19 17 08/03/2016 CMP, serum or plasm a aniongp 18.0 mmol/ L Not Available [facility] (Lab) [address], [place], [address], 08/03/2016 19:38:15 08/04/19 17 08/03/2016 CMP, serum or plasm a calcium, serum 9.8 mg/dL 8.2-10 .0 Not Available [facility] (Lab) [address], [place], [address], 08/03/2016 19:38:15 08/04/19 17 08/03/2016 CMP, serum or plasm a total protein 8.5 g/dL 6.7-8. 2 high Not Available [facility] (Lab) [address], [place], [address], 08/03/2016 19:38:15 08/04/19 17 08/03/2016 CMP, serum or plasm a albumin, serum 4.6 g/dL 3.5-5. 5 Not Available [facility] (Lab) [address], [place], [address], 08/03/2016 19:38:15 08/04/19 17 08/03/2016 CMP, serum or plasm a agratio 1.2 Not Available [facility] (Lab) [address] [place], [address], 08/03/2016 19:38:15 08/04/19 17 08/03/2016 CMP, serum or plasm a bilt 0.4 mg/dL 0.2-1. 0 Not Available [facility] (Lab) [address] [place], [address], 08/03/2016 19:38:15 08/04/19 17 08/03/2016 CMP, serum or plasm a AST 27.0 U/L 10.0-4 2.0 Not Available [facility] (Lab) [address] [place], [address], 08/03/2016 19:38:15 08/04/19 17 08/03/2016 CMP, serum or plasm a ALT 34.0 U/L 10.0-6 0.0 Not Available [facility] (Lab) [address] [facility], [place], [address], 08/03/2016 19:38:15 08/04/19 17 08/03/2016 CMP, serum or plasm a alk phos 93.0 IU/L 42.0-1 21.0 Not Available [facility] (Lab) [address] [facility], [place], [address], 08/03/2016 19:38:15 08/04/19 17 08/03/2016 CMP, serum or plasm a osmol 275.0 mOsm/ L 275.0- 301.0 Not Available [facility] (Lab) [address] [place], [address], 08/03/2016 19:38:15 08/04/19 17 08/03/2016 CMP, serum or plasm a eGFR, AM 121 m/lmi n/1.7 3_m >=60 Not Available [facility] (Lab) [address], [place], [address], 08/03/2016 19:38:15 08/04/19 17 08/03/2016 CMP, serum or plasm a eGFR, non- AM 100 mL/mi n/1.7 3/m >=60 Not Available [facility] (Lab) [address], [place], [address], 08/03/2016 19:38:15 08/04/19 17 08/03/2016 lipid panel w/ direc t LDL, serum cholestrol 269.0 mg/dL 140.0- 200.0 high Not Available [facility] (Lab) [address], [place], [address], 08/03/2016 19:38:55 08/04/19 17 08/03/2016 lipid panel w/ direc t LDL, serum triglyceride s 130 mg/mL 150-19 9 low Not Available [facility] (Lab) [address], [place], [address], 08/03/2016 19:38:55 08/04/19 17 08/03/2016 lipid panel w/ direc t LDL, serum HDL cholesterol 62.0 mg/dL 40.0-1 00.0 Not Available [facility] (Lab) [address], [place], [address], 08/03/2016 19:38:55 08/04/19 17 08/03/2016 lipid panel w/ direc t LDL, serum LDL direct 198 mg/dL <=100 high Not Available [facility] ([facility]) [address], [place], [address], 08/03/2016 19:38:55 08/04/1908/03/2016 lipid panel w/ direc t LDL, serum cholhdl 4.30 mg/dL 0.00-4 .98 Not Available [facility] (Lab) [address] [place], [address], 08/03/2016 19:38:55 08/04/19 17 08/04/2016 TSH, serum or plasm a TSH 2.780 uIU/m L 0.450- 4.500 Not Available [facility] (Lab) [address], [place], [address], 08/04/2016 07:19:43 08/04/19 17 08/04/2016 TSH, serum or plasm a T4,free(dire ct) 1.00 NG/dL 0.82-1 .77 Not Available [facility] (Lab) [address], [place], [address], 08/04/2016 07:19:43 08/04/19 17 08/04/2016 HbA1c (hemo globi n A1c), blood hemoglobin A1C 6.5 % 4.8-5. 6 high . Pre-d iabet es: 5.7 - 6.4 Diabe linda: >6.4 Glyce mavis contr ol for adult s with diabe linda: <7.0 Not Available [facility] (Lab) [address], [place], [address], 08/04/2016 09:22:37 11/05/19 17 11/04/2016 BMP, serum or plasm a glucose, serum 98 mg/dL 65-99 Not Available [facility] (Lab) [address], [place], [address], 11/04/2016 20:10:48 11/05/19 17 11/04/2016 BMP, serum or plasm a BUN 8 mg/dL 8-26 Not Available [facility] (Lab) [address] [place], [address], 11/04/2016 20:10:48 11/05/19 17 11/04/2016 BMP, serum or plasm a creatinine, serum 0.70 mg/dL 0.50-1 .40 Not Available [facility] (Lab) [address] [place], [address], 11/04/2016 20:10:48 11/05/19 17 11/04/2016 BMP, serum or plasm a BUN/creatnin e ratio 11.4 Not Available [facility] (Lab) [address], [place], [address], 11/04/2016 20:10:48 11/05/19 17 11/04/2016 BMP, serum or plasm a sodium, serum 141.0 mEq/L 136.0- 144.0 Not Available [facility] (Lab) [address], [place], [address], 11/04/2016 20:10:48 11/05/19 17 11/04/2016 BMP, serum or plasm a potassium, serum 3.9 mmol/ L 3.5-5. 3 Not Available [facility] (Lab) [address], [place], [address], 11/04/2016 20:10:48 11/05/19 17 11/04/2016 BMP, serum or plasm a chloride, serum 99 mmol/ l 101-11 1 low Not Available [facility] (Lab) [address], [place], [address], 11/04/2016 20:10:48 11/05/19 17 11/04/2016 BMP, serum or plasm a carbon dioxide total 28.2 mmol/ L 21.0-3 2.0 Not Available [facility] (Lab) [address], [place], [address], 11/04/2016 20:10:48 11/05/19 17 11/04/2016 BMP, serum or plasm a aniongp 18.0 mmol/ L Not Available [facility] (Lab) [address], [place], [address], 11/04/2016 20:10:48 11/05/19 17 11/04/2016 BMP, serum or plasm a calcium, serum 9.8 mg/dL 8.2-10 .0 Not Available [facility] (Lab) [address] [place], [address], 11/04/2016 20:10:48 11/05/19 17 11/04/2016 BMP, serum or plasm a osmol 280.0 mOsm/ L 275.0- 301.0 Not Available [facility] (Lab) [address] [place], [address], 11/04/2016 20:10:48 11/05/19 17 11/04/2016 BMP, serum or plasm a eGFR, AM 121 m/lmi n/1.7 3_m >=60 Not Available [facility] (Lab) [address] [place], [address], 11/04/2016 20:10:48 11/05/19 17 11/04/2016 BMP, serum or plasm a eGFR, non- AM 100 mL/mi n/1.7 3/m >=60 Not Available [facility] (Lab) [address] [facility], [place], [address], 11/04/2016 20:10:48 11/05/19 17 11/04/2016 lipid panel w/ direc t LDL, serum cholestrol 168.0 mg/dL 140.0- 200.0 Not Available [facility] (Lab) [address] [place], [address], 11/04/2016 20:10:49 11/05/19 17 11/04/2016 lipid panel w/ direc t LDL, serum triglyceride s 97 mg/mL 150-19 9 low Not Available [facility] (Lab) [address] [place], [address], 11/04/2016 20:10:49 11/05/19 17 11/04/2016 lipid panel w/ direc t LDL, serum HDL cholesterol 55.0 mg/dL 40.0-1 00.0 Not Available [facility] (Lab) [address] [place], [address], 11/04/2016 20:10:49 11/05/19 17 11/04/2016 lipid panel w/ direc t LDL, serum LDL direct 110 mg/dL <=100 high Not Available [facility] (Lab) [address] [place], [address], 11/04/2016 20:10:49 11/05/19 17 11/04/2016 lipid panel w/ direc t LDL, serum cholhdl 3.10 mg/dL 0.00-4 .98 Not Available [facility] [address], [place], [address], 11/04/2016 20:10:49 11/05/19 17 11/05/2016 HbA1c (hemo globi n A1c), blood hemoglobin A1C 6.6 % 4.8-5. 6 high . Pre-d iabet es: 5.7 - 6.4 Diabe linda: >6.4 Glyce mavis contr ol for adult s with diabe linda: <7.0 Not Available [facility] [address], [place], [address], 11/05/2016 06:16:52 10/31/19 18 10/30/2017 CBC w/ auto diff WBC 6.4 K/uL 3.4-10 .8 Not Available [facility] (Lab) [address], [place], [address], 10/30/2017 19:21:28 10/31/19 18 10/30/2017 CBC w/ auto diff red blood count 3.8 M/uL 4.2-5. 4 low Not Available [facility] (Lab) [address] [place], [address], 10/30/2017 19:21:28 10/31/19 18 10/30/2017 CBC w/ auto diff hemoglobin 11.6 g/dL 11.5-1 5.5 Not Available [facility] (Lab) [address] [place], [address], 10/30/2017 19:21:28 10/31/19 18 10/30/2017 CBC w/ auto diff hematocrit 35.4 % 36.0-4 8.0 low Not Available [facility] (Lab) [address] [place], [address], 10/30/2017 19:21:28 10/31/19 18 10/30/2017 CBC w/ auto diff MCV 94 fL 80-95 Not Available [facility] (Lab) [address] [place], [address], 10/30/2017 19:21:28 10/31/19 18 10/30/2017 CBC w/ auto diff MCH 31 pg 27-32 Not Available [facility] (Lab) [address] [place], [address], 10/30/2017 19:21:28 10/31/19 18 10/30/2017 CBC w/ auto diff MCHC 33 g/dL 32-36 Not Available [facility] (Lab) [address] [place], [address], 10/30/2017 19:21:28 10/31/19 18 10/30/2017 CBC w/ auto diff platelets 310 K/uL 155-37 9 Not Available [facility] (Lab) [address] [facility], [place], [address], 10/30/2017 19:21:28 10/31/19 18 10/30/2017 CBC w/ auto diff RDW 12.6 % 11.5-1 4.5 Not Available [facility] (Lab) [address] [facility], [place], [address], 10/30/2017 19:21:28 10/31/19 18 10/30/2017 CBC w/ auto diff MPV 10.7 fL 8.9-12 .7 Not Available [facility] (Lab) [address] [place], [address], 10/30/2017 19:21:28 10/31/19 18 10/30/2017 CBC w/ auto diff neutrophils absolute 2.2 K/uL 1.4-7. 0 Not Available [facility] (Lab) [address] [place], [address], 10/30/2017 19:21:28 10/31/19 18 10/30/2017 CBC w/ auto diff lymphs (absolute) 3.3 K/uL 0.7-3. 1 high Not Available [facility] (Lab) [address] [place], [address], 10/30/2017 19:21:28 10/31/19 18 10/30/2017 CBC w/ auto diff monocytes (absolute) 0.5 K/uL 0.1-0. 9 Not Available [facility] (Lab) [address] [place], [address], 10/30/2017 19:21:28 10/31/19 18 10/30/2017 CBC w/ auto diff eos (absolute) 0.4 K/uL 0.0-0. 4 Not Available [facility] (Lab) [address] [facility], [place], [address], 10/30/2017 19:21:28 10/31/19 18 10/30/2017 CBC w/ auto diff baso (absolute) 0.0 K/uL 0.1-0. 3 low Not Available [facility] (Lab) [address] [facility], [place], [address], 10/30/2017 19:21:28 10/31/19 18 10/30/2017 CBC w/ auto diff neut % 34.0 % 40.0-7 4.0 low Not Available [facility] (Lab) [address] [place], [address], 10/30/2017 19:21:28 10/31/19 18 10/30/2017 CBC w/ auto diff lymphs % 52.1 % 14.0-4 6.0 high Not Available [facility] (Lab) [address] [place], [address], 10/30/2017 19:21:28 10/31/19 18 10/30/2017 CBC w/ auto diff mono % 7.1 % 4.0-12 .0 Not Available [facility] (Lab) [address] [place], [address], 10/30/2017 19:21:28 10/31/19 18 10/30/2017 CBC w/ auto diff eos % 6 % <=5 high Not Available [facility] [address], [place], [address], 10/30/2017 19:21:28 10/31/19 18 10/30/2017 CBC w/ auto diff baso % 0.3 % 0.1-1. 1 Not Available [facility] (Lab) [address], [place], [address], 10/30/2017 19:21:28 10/31/19 18 10/30/2017 lipid panel w/ direc t LDL, serum cholestrol 165.0 mg/dL 140.0- 200.0 Not Available [facility] (Lab) [address], [place], [address], 10/30/2017 19:42:01 10/31/19 18 10/30/2017 lipid panel w/ direc t LDL, serum triglyceride s 139 mg/dL <=150 Not Available [facility] ([facility]) [address], [place], [address], 10/30/2017 19:42:01 10/31/19 18 10/30/2017 lipid panel w/ direc t LDL, serum HDL cholesterol 50.0 mg/dL 40.0-1 00.0 Not Available [facility] (Lab) [address], [place], [address], 10/30/2017 19:42:01 10/31/19 18 10/30/2017 lipid panel w/ direc t LDL, serum LDL direct 107 mg/dL <=100 high Not Available [facility] ([facility]) [address], [place], [address], 10/30/2017 19:42:01 10/31/19 18 10/30/2017 lipid panel w/ direc t LDL, serum cholhdl 3.30 mg/dL 0.00-4 .98 Not Available [facility] (Lab) [address] [place], [address], 10/30/2017 19:42:01 10/31/19 18 10/30/2017 CMP, serum or plasm a glucose, serum 90 mg/dL 65-99 Not Available [facility] (Lab) [address], [place], [address], 10/30/2017 19:42:06 10/31/19 18 10/30/2017 CMP, serum or plasm a BUN 8 mg/dL 8-26 Not Available [facility] (Lab) [address], [place], [address], 10/30/2017 19:42:06 10/31/19 18 10/30/2017 CMP, serum or plasm a creatinine, serum 0.70 mg/dL 0.50-1 .40 Not Available [facility] (Lab) [address], [place], [address], 10/30/2017 19:42:06 10/31/19 18 10/30/2017 CMP, serum or plasm a BUN/creatnin e ratio 11.4 Not Available [facility] (Lab) [address], [place], [address], 10/30/2017 19:42:06 10/31/19 18 10/30/2017 CMP, serum or plasm a sodium, serum 139.0 mEq/L 136.0- 144.0 Not Available [facility] (Lab) [address], [place], [address], 10/30/2017 19:42:06 10/31/19 18 10/30/2017 CMP, serum or plasm a potassium, serum 4.6 mmol/ L 3.5-5. 3 Not Available [facility] (Lab) [address], [place], [address], 10/30/2017 19:42:06 10/31/19 18 10/30/2017 CMP, serum or plasm a chloride, serum 102 mmol/ l 101-11 1 Not Available [facility] (Lab) [address] [place], [address], 10/30/2017 19:42:06 10/31/19 18 10/30/2017 CMP, serum or plasm a carbon dioxide total 25.9 mmol/ L 21.0-3 2.0 Not Available [facility] (Lab) [address], [place], [address], 10/30/2017 19:42:10/31/19 18 10/30/2017 CMP, serum or plasm a aniongp 16.0 mmol/ L Not Available [facility] (Lab) [address], [place], [address], 10/30/2017 19:42:10/31/19 18 10/30/2017 CMP, serum or plasm a calcium, serum 10.1 mg/dL 8.2-10 .0 high Not Available [facility] (Lab) [address], [place], [address], 10/30/2017 19:42:10/31/19 18 10/30/2017 CMP, serum or plasm a total protein 8.0 g/dL 6.7-8. 2 Not Available [facility] (Lab) [address], [place], [address], 10/30/2017 19:42:10/31/19 18 10/30/2017 CMP, serum or plasm a albumin, serum 4.5 g/dL 3.5-5. 5 Not Available [facility] (Lab) [address] [place], [address], 10/30/2017 19:42:10/31/19 18 10/30/2017 CMP, serum or plasm a agratio 1.3 Not Available [facility] (Lab) [address] [place], [address], 10/30/2017 19:42:10/31/19 18 10/30/2017 CMP, serum or plasm a bilt 0.3 mg/dL 0.2-1. 0 Not Available [facility] (Lab) [address] [place], [address], 10/30/2017 19:42:06 10/31/19 18 10/30/2017 CMP, serum or plasm a AST 21.0 U/L 10.0-4 2.0 Not Available [facility] (Lab) [address] [place], [address], 10/30/2017 19:42:06 10/31/19 18 10/30/2017 CMP, serum or plasm a ALT 23.0 U/L 10.0-6 0.0 Not Available [facility] (Lab) [address] [place], [address], 10/30/2017 19:42:06 10/31/19 18 10/30/2017 CMP, serum or plasm a alk phos 87.0 IU/L 42.0-1 21.0 Not Available [facility] (Lab) [address] [place], [address], 10/30/2017 19:42:06 10/31/19 18 10/30/2017 CMP, serum or plasm a osmol 275.0 mOsm/ L 275.0- 301.0 Not Available [facility] (Lab) [address] [place], [address], 10/30/2017 19:42:06 10/31/19 18 10/30/2017 CMP, serum or plasm a eGFR, AM 120 m/lmi n/1.7 3_m >=60 Not Available [facility] (Lab) [address] [place], [address], 10/30/2017 19:42:06 10/31/19 18 10/30/2017 CMP, serum or plasm a eGFR, non- AM 99 mL/mi n/1.7 3/m >=60 Not Available [facility] (Lab) [address] [place], [address], 10/30/2017 19:42:06 10/31/19 18 10/30/2017 TSH, serum or plasm a TSH 2.25 uIU/m L 0.50-4 .50 Not Available [facility] (Lab) [address] [facility] [place], [address], 10/30/2017 20:06:36 10/31/19 18 10/31/2017 HbA1c (hemo globi n A1c), blood hemoglobin A1C 5.9 % 4.8-5. 6 high . Pre-d iabet es: 5.7 - 6.4 Diabe linda: >6.4 Glyce mavis contr ol for adult s with diabe linda: <7.0 Not Available [facility] (Lab) [address] [facility], [place], [address], 10/31/2017 07:10:00 10/31/19 18 10/31/2017 T4, total , serum thyroxine T4 6.8 ug/dL 4.5-12 .0 Not Available [facility] (Lab) [address] [facility], [place], [address], 10/31/2017 10:11:05 11/22/19 17 11/19/2016 imagi ng/di agnos tic resul t No observ ation record ed. [facility] (Imaging) [address], [place], [address], 01/31/2017 15:40:59 12/07/19 17 imagi ng/di agnos tic resul t No observ ation record ed. [facility] Not Available 2016 15:40:59 02/26/20 18 02/25/2018 CT, abdom en + pelvi s, w/ contr ast No observ ation record ed. [facility] Not Available 2017 13:14:24 Result Notes None recorded. Problems Name Problem SNOMED Code Status Onset Date Resolution Date Notes Provider Name and Address Organization Details Recorded Time Essential hypertension 00745141 Active Farhad Fuchs MD Attn: Louie beckwith,[address] [place], [address], [facility] 6 17:37:32 Low back pain 432116445 Active Farhad Fuchs MD Attn: Louie beckwith,[address] [facility], [place], [address], [facility] 6 17:37:32 Macromastia 308216144 Active Farhad Fuchs MD Attn: Louie beckwith,[address] [facility], [place], [address], [facility] 6 17:37:32 Obesity 666647180 Active 2016 Carson Benavides MD Attn: Louie beckwith,[address] [facility], [place], [address], [facility] 7 14:52:44 Hyperglycemia 88353996 Active 2016 Carson Benavides MD Attn: Louie beckwith,[address] [facility], [place], [address], [facility] 7 15:44:21 Problem Notes None recorded. Procedures Surgical History None recorded. Imaging Results Imaging Date Name Status LastModified by Organiz ation Details LastModified Time 11/19/2016 imaging/diagn ostic result completed [facility] (Imaging) [address], [place], [address], 01/31/2017 15:40:59 12/06/2016 imaging/diagn ostic result completed [facility] Information not available 01/31/2017 15:40:59 02/25/2018 CT, abdomen + pelvis, w/ contrast completed [facility] Information not available 02/27/2018 13:14:24 Procedure [...] Updated DateTime 8 157.48 cm 34.4 kg/m2 80011.3 7 g 76 /min 20 /min 98.5 [degF] 110 mm[Hg] 88 mm[Hg] José Miguel Rosen MA [facility] 8 10:37:37 Date Recorded Body weight Body height Body mass index (BMI) Heart rate Respiratory rate Body temperature Systolic blood pressure Diastolic blood pressure Provider Name and Address Organization Details Last Updated DateTime 7 00305.0 7 g 157.48 cm 36.8 kg/m2 76 /min 20 /min 98 [degF] 140 mm[Hg] 100 mm[Hg] José Miguel Rosen [facility] 7 14:38:39 Date Recorded Body height Body weight Body mass index (BMI) Heart rate Respiratory rate Systolic blood pressure Diastolic blood pressure Provider Name and Address Organization Details Last Updated DateTime 7 157.48 cm 67575.4 7 g 36.6 kg/m2 80 /min 24 /min 130 mm[Hg] 100 mm[Hg] Joés Miguel Rosen [facility] 7 17:19:17 Date Recorded Body height Body mass index (BMI) Body weight Heart rate Respiratory rate Body temperature Systolic blood pressure Diastolic blood pressure Provider Name and Address Organization Details Last Updated DateTime 7 157.48 cm 35.5 kg/m2 53253.9 2 g 76 /min 20 /min 98.1 [degF] 120 mm[Hg] 88 mm[Hg] Justinguerazo[facility]santhosh [facility] [place] [facility] 7 12:22:51 Date Recorded Body height Body mass index (BMI) Body weight Heart rate Respiratory rate Body temperature Systolic blood pressure Diastolic blood pressure Provider Name and Address Organization Details Last Updated DateTime 7 157.48 cm 35.8 kg/m2 69868.1 g 76 /min 20 /min 98.3 [degF] 130 mm[Hg] 100 mm[Hg] José Miguel Rosen [facility] 7 15:31:42 Social History None recorded. Functional Status None recorded. Mental Status None recorded. Family History Nothing Reported. Medical History No medical history recorded. Gynecological HistoryNo gynecological history recorded. Obstetrics History GPAL:G 0 P 0 0 0 0 Past Encounters Encounter ID Performer Location Encounter Start Date Encounter Closed Date Diagnosis/Indication Diagnosis SNOMED-CT Code Diagnosis ICD10 Code Diagnosis Note [id number] Ophelia Emery LPN [facility] (Adult/Fa m Med) [address] [place] [address] 07/24/2014 13:56:05 07/24/2014 17:56:19 Essential hypertension 15979378 Low back pain 981818544 [id number] Paulina Anaya [facility] (Adult/Fa m Med) [address] [place] [address] 02/02/2015 10:57:57 02/03/2015 10:59:32 Essential hypertension 70888850 I10 Low back pain 163262402 M54.5 [id number] Columba [facility] (Adult/Fa m Med) [address] [place] [address] 02/11/2015 15:18:29 02/11/2015 18:05:07 Essential hypertension 37059375 I10 Low back pain 775496692 M54.5 [id number] Columba Crooks [facility] (Adult/Fa m Med) [address] [place] [address] 03/30/2015 16:24:13 03/31/2015 16:59:15 Essential hypertension 77779937 I10 Low back pain 472434382 M54.5 [id number] Paulina Anaya [facility] (Adult/Fa m Med) [address] [place] [address] 05/13/2015 15:36:43 05/15/2015 15:22:39 Essential hypertension 96626915 I10 Low back pain 497902355 M54.5 Macromastia 043614871 N6 2 [id number] Carson Benavides MD [facility] (Adult/Fa m Med) [address] [place] [address] 08/03/2016 14:25:28 08/04/2016 08:56:28 Low back pain 806178525 M54.5 continue meds. may needs MRIcan not take NSAIDs or Tramadol? Essential hypertension 14943775 I10 controlled Obesity 043676386 E66.9 diet/exerc ises. Hyperglycemia 07137398 R 73.9 on metformin but is reluctant to take it. asking for labs. [id number] Carson Benavides MD [facility] (Adult/Fa m Med) [address] [place] [phone] 08/30/2016 16:10:24 08/31/2016 09:54:10 Obesity 537333103 E66.9 diet/exerc ises. Low back pain 802635960 M54.5 continue meds. prn Vicodin. Macromastia 955093134 N6 2 supposed to have reduction surgery in November Essential hypertension 71417677 I10 controlled Hyperglycemia 45412581 R 73.9 on metformin but is reluctant to take it.repeate d labs showed HgA1C 6.5--> restart metformin 500 mg po BID/ diet/exerc ises.had glucometer at home. Hyperlipidemia 98358230 E78.5 LDL 292 [id number] Carson Benavides MD [facility] (Adult/Fa m Med) [address] [place] [phone] 11/04/2016 12:08:27 11/08/2016 09:55:49 Obesity 510392225 E66.9 diet/exerc ises. Low back pain 635632732 M54.5 continue meds. prn Vicodin. Essential hypertension 86886484 I10 controlled Macromastia 472930123 N6 2 supposed to have reduction surgery in November Hyperlipidemia 04271030 E78.5 LDL 198 Hyperglycemia 03706174 R 73.9 on metformin. repeat labs [id number] Carson Benavides MD [facility] (Adult/Fa m Med) [address] [place] [address] 01/31/2017 15:26:15 02/01/2017 16:03:17 Obesity 606672163 E66.9 diet/ exercises. Low back pain 014548767 M54.5 continue meds. Macromastia 456263352 N6 2 had reduction surgery Essential hypertension 04237781 I10 controlled Bronchitis 47972160 J40 OTC meds. Hyperglycemia 84570819 R 73.9 Hga1C 6.5--> 6.6on metformin. Hyperlipidemia 51542825 E78.5 LDL is better [id number] Carson Benavides MD [facility] (Adult/Fa m Med) [address] [place] [address] 11/08/2017 10:13:35 11/08/2017 13:55:10 Obesity 317179381 E66.9 diet/ exercises. Low back pain 108001395 M54.5 continue meds. Essential hypertension 61271528 I10 controlled Hyperlipidemia 22357229 E78.5 LDL is better Hyperglycemia 41700437 R 73.9 Hga1C 6.5--> 6.6 --> 5.9on metformin. 1/2 tab po bid Toothache 86006077 K08.8 9 Health Concerns Section Related Observation LastModified by Organization Detai ls LastModified Time None Recorded Concern Status LastModified by Organization Details LastModified Time None Recorded Advance Directives Directive None Recorded Payers Encounter Date Sequence Insurance Name Policy Number Policy Rivera Covered Member ID Rivera Member ID Guarantor Name 08/03/2016 1 [facility] (MEDICAID HMO) [id number] Johanna Dominguez [id number] Roshonda Estela 08/30/2016 1 [facility] (MEDICAID HMO) [id number] Johanna Dominguez [id number] Roshonda Estela 11/04/2016 1 [facility] (MEDICAID HMO) [id number] 0003 Roshonda Zechariah Dominguez [id number] Roshonda Hext 01/31/2017 1 [facility] (MEDICAID HMO) [id number] 0003 Roshonda L Dominguez [id number] Roshonda Hext 11/08/2017 1 [facility] (MEDICAID HMO) [id number] 0003 Rohinihonda Zechariah Dominguez [id number] Roshonda Hext Notes Date Note Type Note Provider Name and Address Organization Details Recorded Time 08/03/2016 text/html no complaints Carson Benavides MD Attn: [address]ing,[address] [place], [address], [facility] 08/03/2016 15:03:27 08/30/2016 text/html left foot pain after trauma/ fractured toe Carson Benavides MD Attn: [address] [place], [address], [facility] 08/31/2016 08:13:13 11/04/2016 text/html no new complaints Carson Benavides MD Attn: Accounting,[address] [place], [address], [facility] 11/04/2016 12:43:17 01/31/2017 text/html no new complaints Carson Benavides MD Attn: Accounting,[address] [place], [address], [facility] 01/31/2017 15:56:04 11/08/2017 text/html no new complaints Carson Benavides MD Attn: Accounting,[address] [place], [address], [facility] 11/08/2017 11:01:30 OBGyn Episode No OBEpisode recorded.
--- OUTSIDE RECORDS SUMMARY | 2024-06-07 22:23 | XMS_ITS | Data Portability ---
Author Organization [facility] Rives Address [address] [place] [address] [place] [address] Care Team Providers Care Counter Stitcher Name Role Phone ALANTOMGABBY Primary Care Provider Assessment No assessment recorded. Plan of Treatment Reminders Order Date Submit Date Provider Last Modified By Organization Details Last Modified Time Details Appointments None recorded. Lab urinalysis, dipstick 2023 024 [email or web address] [address], [address], [place], [address], 4 09:48:09 urinalysis, dipstick 2021 022 [address], [address], [place], [address], 16:08:14 Referral urogynecolo gist referral - Chronic interstitia l cystitis managementP lenancy contact this patient to schedule an appointment . This patient has an appointment with Dr Graves on Monday03/09/2022 @ 11:00 am.Attached are the patients demographic s, most recent office visit notes and UA results.If you have any questions, please contact me at [phone].Thank you,Tamara, Referral's 2021 ZACHARIAH Graves MD, [address] [facility], [facility] [address], [place], [address], 01:30:21 Procedures None recorded. Surgeries None recorded. Imaging None recorded. Medication Orders fluconazole 150 mg tablet 2023 024 [facility] #94809, [address] [facility], [place], [place], [id number], 4 11:03:07 metronidazo le 500 mg tablet 2023 024 [facility] #01797, [address], [place], [place], [id number], 4 11:03:08 nystatin-tr iamcinolone 100,000 unit/gram-0 .1 % topical ointment 2023 024 [facility] #75851, [address] [facility], [place], [place], [id number], 4 11:03:08 Valtrex 500 mg tablet 2022 023 [facility] #77226, [address] [facility], [place], [place], [id number], 3 16:48:31 Diflucan 200 mg tablet [email or web address] [place] [address] [facility] #04534, [address] [facility], [place], [place], [id number], 4 10:48:24 nystatin-tr iamcinolone 100,000 unit/gram-0 .1 % topical ointment 2022 023 [facility] #04405, [address] [facility], [place], [place], [id number], 3 16:48:29 Diflucan 200 mg tablet 2022 024 [facility] #60225, [address] [facility], [place], [place], [id number], 4 10:49:06 Valtrex 1 gram tablet [address] [facility] [employer] #10734, [address] [place], [place], [id number], 4 10:49:06 lidocaine HCl 2 % mucosal jelly 2022 024 ZACHARIAH [facility] [employer] [facility] #34546, [address] [facility], [place], [place], [id number], 4 10:48:54 Keflex 500 mg capsule [address], [address] [place], [place], [id number], 4 10:48:28 Pyridium 200 mg tablet [address] [employer] [employer]63274, [address] [place], [place], [id number], 3 18:14:59 Macrobid 100 mg capsule [address] [employer] [facility] #62191, [address] [place], [place], [id number], 3 18:15:14 Patient TargetsNo targets recorded. Patient InstructionsNo instructions [...] have any questions, please contact me at [phone].Thank you,Tamara Referral's Referring Physician: Rhonda Alarcon, COUNSELOR [employer]RIAGE [employer] FAMILY, Encounter Date: 02/11/2022 Results Created Date Observation Date Name Description Value Unit Range Abnormal Flag Note LastModifiedBy Organization Detail LastModifiedTime 02/12/2002/11/2022 URINA LYSIS , WITH MICRO SCOPI C urinalysis, with microscopic CANCEL LED Reord ered Not Available [facility] Infect[facility] [place], [address], 02/12/2022 00:30:11 02/12/2002/11/2022 URINA LYSIS , COMPL ETE (QUES T) color DARK YELLOW yellow Not Available [facility] [place], [address], 02/12/2022 21:37:27 02/12/20 22 02/11/2022 URINA LYSIS , COMPL ETE (QUES T) apperance CLEAR clear Not Available [facility] [place], [address], 02/12/2022 21:37:27 02/12/20 22 02/11/2022 URINA LYSIS , COMPL ETE (QUES T) specific gravity 1.025 1.001- 1.035 Not Available [facility] [place], [address], 02/12/2022 21:37:27 02/12/20 22 02/11/2022 URINA LYSIS , COMPL ETE (QUES T) pH 8.0 5.0-8. 0 Not Available [facility] [place], [address], 02/12/2022 21:37:27 02/12/20 22 02/11/2022 URINA LYSIS , COMPL ETE (QUES T) glucose NEGATI VE negati ve Not Available [facility] [place], [address], 02/12/2022 21:37:27 02/12/20 22 02/11/2022 URINA LYSIS , COMPL ETE (QUES T) bilirubin NEGATI VE negati ve Not Available [facility] [address] [place] [address], [address], 02/12/2022 21:37:27 02/12/20 22 02/11/2022 URINA LYSIS , COMPL ETE (QUES T) ketones TRACE negati ve abnormal Not Available [facility] [address] [place] [address], [address], 02/12/2022 21:37:27 02/12/20 22 02/11/2022 URINA LYSIS , COMPL ETE (QUES T) occult blood NEGATI VE negati ve Not Available [facility] [address] [place] [address], [address], 02/12/2022 21:37:27 02/12/20 22 02/11/2022 URINA LYSIS , COMPL ETE (QUES T) protein TRACE negati ve abnormal Not Available [facility] [address] [place] [address], [address], 02/12/2022 21:37:27 02/12/20 22 02/11/2022 URINA LYSIS , COMPL ETE (QUES T) nitrite NEGATI VE negati ve Not Available [facility] [address] [place] [address], [address], 02/12/2022 21:37:27 02/12/20 22 02/11/2022 URINA LYSIS , COMPL ETE (QUES T) leukocyte esterase NEGATI VE negati ve Not Available [facility] [address] [place] [address], [address], 02/12/2022 21:37:27 02/12/20 22 02/11/2022 URINA LYSIS , COMPL ETE (QUES T) WBC NONE SEEN /hpf < or = 5 Not Available [facility] [address] [place] [address], [address], 02/12/2022 21:37:27 02/12/20 22 02/11/2022 URINA LYSIS , COMPL ETE (QUES T) RBC NONE SEEN /hpf < or = 2 Not Available [facility] Infect[facility] Disease [address] [place] [address], [address], 02/12/2022 21:37:27 02/12/20 22 02/11/2022 URINA LYSIS , COMPL ETE (QUES T) squamous epithelial cells 0-5 /hpf < or = 5 Not Available [facility] [address] [place] [address], [address], 02/12/2022 21:37:27 02/12/20 22 02/11/2022 URINA LYSIS , COMPL ETE (QUES T) bacteria NONE SEEN /hpf none seen Not Available [facility] [address] [place] [address], [address], 02/12/2022 21:37:27 02/12/20 22 02/11/2022 URINA LYSIS , COMPL ETE (QUES T) hyaline cast NONE SEEN /lpf none seen Perfo rming Organ izati on Infor matio n: Site ID: CB Name: [facility] Addre ss: [address] [facility] [place] [address] Dire tor: Sera gilmore M.D. Not Available [facility] Infectious Disease [address] [place] [address], [address], 02/12/2022 21:37:27 02/12/20 22 02/11/2022 CULTU RE: URINE result report SEE RESULT S BELOW Test: Cultu re: Urine Speci men Sourc e: Urine Voide d Speci men Type: Urine Speci men Date: 02/11 3:57 PM Resul t Date: 02/12 8:35 PM Resul t Statu s: Final resul t Abnor mal: No Resul melissag Lab: [facility] [address] [facility] [address] Tel: CULTU RE ----- ----- ----- --- No growt h in 1 day (dete ction level of 10,00 0 colon ies / ml.) Not Available [facility] Infect[facility] Disease [address] [place], [address], 02/12/2022 21:37:27 02/12/2002/11/2022 urina lysis , dipst ick Leukocytes neg Not Available [facility] [address], [place], [address], 02/11/2022 16:07:32 02/12/2002/11/2022 urina lysis , dipst ick Nitrite neg Not Available [facility] [address], [place], [address], 02/11/2022 16:07:32 02/12/20 22 02/11/2022 urina lysis , dipst ick Urobilinogen neg Not Available [facility] attila [address], [place], [address], 02/11/2022 16:07:32 02/12/20 22 02/11/2022 urina lysis , dipst ick Protein neg Not Available [facility] [address], [place], [address], 02/11/2022 16:07:32 02/12/20 22 02/11/2022 urina lysis , dipst ick pH 7 Not Available [facility] [address], [place], [address], 02/11/2022 16:07:32 02/12/20 22 02/11/2022 urina lysis , dipst ick Specific Olin 1.000 Not Available [facility] [address], [place], [address], 02/11/2022 16:07:32 02/12/20 22 02/11/2022 urina lysis , dipst ick Ketone neg Not Available [facility] [address], [place], [address], 02/11/2022 16:07:32 02/12/20 22 02/11/2022 urina lysis , dipst ick Bilirubin neg Not Available [facility] [address], [place], [address], 02/11/2022 16:07:32 02/12/20 22 02/11/2022 urina lysis , dipst ick Glucose neg Not Available [facility] [address], [place], [address], 02/11/2022 16:07:32 02/12/20 22 02/11/2022 urina lysis , dipst ick Appearance cloudy Not Available [facility] [address], [place], [address], 02/11/2022 16:07:32 02/12/20 22 02/11/2022 urina lysis , dipst ick Color yellow Not Available [facility] [address], [place], [address], 02/11/2022 16:07:32 11/24/19 23 11/23/2022 CT/GC AND TRICH OMONA S VAGIN BRANDAN (RRNA ), URINE chlamydia trachomatis, PCR Negati ve negati ve Not Available [facility] (Lab) [address], [place], [address], 11/24/2022 13:09:56 11/24/19 23 11/23/2022 CT/GC AND TRICH OMONA S VAGIN BRANDAN (RRNA ), URINE neisseria gonorrhoeae, PCR Negati ve negati ve Not Available [facility] (Lab) [address], [place], [address], 11/24/2022 13:09:56 11/24/19 23 11/23/2022 CT/GC AND TRICH OMONA S VAGIN BRANDAN (RRNA ), URINE trichomonas vaginalis ribosomal RNA (rrna) Negati ve negati ve Not Available [facility] (Lab) [address], [place], [address], 11/24/2022 13:09:56 06/09/19 24 06/09/2023 CT/GC AND TRICH OMONA S VAGIN BRANDAN (RRNA ), SWAB chlamydia trachomatis, PCR Negati ve negati ve Not Available [facility] (Lab) [address], [place], [address], 06/12/2023 12:12:40 06/09/19 24 06/09/2023 CT/GC AND TRICH OMONA S VAGIN BRANDAN (RRNA ), SWAB neisseria gonorrhoeae, PCR Negati ve negati ve Not Available [facility] (Lab) [address], [place], [address], 06/12/2023 12:12:40 06/09/19 24 06/09/2023 CT/GC AND TRICH OMONA S VAGIN BRANDAN (RRNA ), SWAB trichomonas vaginalis ribosomal RNA (rrna) Negati ve negati ve Not Available [facility] (Lab) [address], [place], [address], 06/12/2023 12:12:40 06/09/19 24 06/09/2023 VAGIN ITIS/ VAGIN OSIS, DNA PROBE connor sp. detection, direct probe Negati ve negati ve Not Available [facility] (Lab) [address], [place], [address], 06/12/2023 12:12:41 06/09/19 24 06/09/2023 VAGIN ITIS/ VAGIN OSIS, DNA PROBE gardnerella vag. detection, direct probe Positi ve negati ve abnormal Not Available [facility] (Lab) [address], [place], [address], 06/12/2023 12:12:41 06/09/19 24 06/09/2023 VAGIN ITIS/ VAGIN OSIS, DNA PROBE trichomonas vag. detection, direct probe Negati ve negati ve Not Available [facility] (Lab) [address], [place], [address], 06/12/2023 12:12:41 12/19/19 24 12/19/2023 CULTU RE: URINE result report SEE RESULT S BELOW Test: Cultu re: Urine Speci men Sourc e: Urine - Clean Catch Speci men Type: Urine Speci men Date: 1050 Resul t Date: 0458 Resul t Statu s: Final resul t Abnor mal: No Resul ting Lab: [facility] [address] [facility] [address] Tel: CULTU RE ----- ----- ----- --- No growt h in 1 day (dete ction level of 10,00 0 colon ies / ml.) Not Available [facility] (Lab) [address], [place], [address], 12/21/2023 06:03:57 12/19/19 24 12/19/2023 urina lysis , dipst ick Leukocytes Trace Not Available [facility] [address], [place], [address], 12/19/2023 09:47:12 12/19/19 24 12/19/2023 urina lysis , dipst ick Nitrite Negati ve Not Available [facility] [address], [place], [address], 12/19/2023 09:47:12 12/19/19 24 12/19/2023 urina lysis , dipst ick Urobilinogen Normal Not Available [facility] [address], [place], [address], 12/19/2023 09:47:12 12/19/19 24 12/19/2023 urina lysis , dipst ick Protein Negati ve Not Available [facility] [address], [place], [address], 12/19/2023 09:47:12 12/19/19 24 12/19/2023 urina lysis , dipst ick pH 5 Not Available [facility] [address], [place], [address], 12/19/2023 09:47:12 12/19/1912/19/2023 urina lysis , dipst ick Blood ++ Not Available [facility] [address], [place], [address], 12/19/2023 09:47:12 12/19/19 24 12/19/2023 urina lysis , dipst ick Specific Olin 1.030 Not Available [facility] [address], [place], [address], 12/19/2023 09:47:12 12/19/19 24 12/19/2023 urina lysis , dipst ick Ketone Negati ve Not Available [facility] [address], [place], [address], 12/19/2023 09:47:12 12/19/19 24 12/19/2023 urina lysis , dipst ick Bilirubin Negati ve Not Available [facility] [address], [place], [address], 12/19/2023 09:47:12 12/19/19 24 12/19/2023 urina lysis , dipst ick Glucose Normal Not Available [facility] [address], [place], [address], 12/19/2023 09:47:12 12/19/19 24 12/19/2023 urina lysis , dipst ick Color Dark Yellow Not Available [facility] [address], [place], [address], 12/19/2023 09:47:12 Result Notes None recorded. Problems Name Problem SNOMED Code Status Onset Date Resolution Date Notes Provider Name and Address Organization Details Recorded Time Acute vaginiti s [id number] Completed 201601/14/2021 Acute vulvovagi nitis;Rec orded Elsewhere : No Locati on: [facility] So urce: EHR Chron ic: N Practic e ID: 0001 Bill able Time: 01:00:00 PM Ashley [facility] 14:24:12 Pelvic and perineal pain 859918379 Completed 201701/14/2021 Pelvic and perineal pain;Kal rded Elsewhere : No Locati on: [facility] So urce: EHR Chron ic: N Practic e ID: 0001 Bill able Time: 11:30:00 AM Ashley Hunter [facility] 14:24:23 Vaginola bial hernia Completed 201701/14/2021 Other specified noninflam matory disorders of vagina;Re corded Elsewhere : No Locati on: [facility] So urce: EHR Chron ic: N Practic e ID: 0001 Bill able Time: 11:30:00 AM Ashley Hunter [facility] 14:24:[address] Concept Completed 201901/14/2021 Encntr for ob/gyn exam (general) (routine) w/o abn findings; Recorded Elsewhere : No Locati on: [facility] So urce: EHR Chron ic: N Practic e ID: 0001 Bill able Time: 09:45:00 AM Ashley Hunter [facility] 09/30/202 1 14:24:26 Syphilis test finding [id number] Completed 201701/14/2021 Encntr screen for infection s w sexl mode of transmiss ;Recorded Elsewhere : No Locati on: [facility] So urce: EHR Chron ic: N Practic e ID: 0001 Bill able Time: 11:30:00 AM Ashley [facility] 14:24:[address] Concept Completed 201601/14/2021 Encntr for general adult medical exam w/o abnormal findings; Recorded Elsewhere : No Locati on: [facility] So urce: EHR Chron ic: N Practic e ID: 0001 Bill able Time: 02:30:00 PM Ashley [facility] 14:24:24 Itching [id number] Completed 201601/14/2021 Pruritus, unspecifi ed;Record ed Elsewhere : No Locati on: [facility] So urce: EHR Chron ic: N Practic e ID: 0001 Bill able Time: 10:30:00 AM Ashley [facility] 14:24:21 Connor infectio n of genital region Completed 201801/14/2021 Candidal vulvovagi nitis;Rec orded Elsewhere : No Locati on: [facility] So urce: EHR Chron ic: N Practic e ID: 0001 Bill able Time: 04:00:00 PM Ashley [facility] 14:24:15 Infectio n screenin g Completed 201701/14/2021 Encounter for screening for oth infec/par astc diseases; Recorded Elsewhere : No Locati on: [facility] So urce: EHR Chron ic: N Practic e ID: 0001 Bill able Time: 11:30:00 AM Ashley [facility] 14:24:20 Hyperten sive disorder [id number] Completed 201501/14/2021 Essential (primary) hypertens ion;Recor ded Elsewhere : No Locati on: [facility] So urce: EHR Chron ic: N Practic e ID: 0001 Bill able Time: 01:45:00 PM Ashley [facility] 14:24:18 Body mass index 30+ - obesity 810072508 Completed 201501/14/2021 Body mass index (BMI) 36.0-36.9 , adult;Rec orded Elsewhere : No Locati on: [facility] So urce: EHR Chron ic: N Practic e ID: 0001 Bill able Time: 01:45:00 PM Ashley [facility] 14:24:13 Dysuria 47923249 Completed 201601/14/2021 Dysuria;P ractice ID: 0001 [facility] 14:24:17 Problem Notes None recorded. Procedures Surgical History Date Name Laterality Status Provider Name and Address Organization Details Recorded Time 01/15/20 21 Date of Last Pap Smear completed [facility] 02/11/2022 16:06:59 07/29/19 20 Date of Last Mammogram completed [facility] 01/14/2021 14:26:32 04/17/19 17 Breast reduction completed [facility] 01/14/2021 14:57:49 04/17/19 14 Partial Hysterectomy completed Mariana [facility] 11/09/2020 09:42:54 Imaging Results None recorded. Procedure Notes None recorded. Medical Equipment None Reported. Allergies No known drug allergies Medications Name Sig Start Date Stop Date Status Note LastModified by Organization Details LastModified Time atorvasta tin 40 mg tablet take 1 tablet by oral route every day 01/14 completed Prescrib ed Elsewher e: Yes Loca tion: [facility] M odify By: [email or web address] Encount er DateTime : 04/20/19 04:00:00 PM Not Available Not Available Not Available metformin 500 mg tablet TAKE 1 TABLET BY MOUTH TWICE DAILY active Not Available Not Available No t Available terconazo le 0.4 % vaginal cream insert 1 applicat orful by vaginal route every day for 7 days at bedtime 04/26 completed Prescrib ed Elsewher e: No Locat ion: Prateek whitaker [facility] odify By: karina bolden DateTime : [...] Elsewher e: No Locat ion: Prateek whitaker [facility] odify By: nhung bolden DateTime : [...] Elsewher e: No Locat ion: Prateek whitaker [facility] M odify By: mike prasad DateTime : [...] jame Sinclair e: No Locat ion: [facility]ishaankush [facility] odify By: Encount er DateTime : [...] Prescrib ed Elsewher e: Yes [facility] By: ron prasad DateTime : [...] Elsewher e: Yes Loca tion: Kishatonia sherman [facility] odify By: elizabeth aburto Encoun ter [...] Prescrib ed Elsewher e: Yes Loca tion: [facility] odify By: elizabeth Merrill ter DateTime : 10/30/19 16 01:45:00 PM Not Available Not Available Not Available nitrofura ntoin monohydra te/macroc rystals 100 mg capsule TAKE 1 CAPSULE BY MOUTH EVERY 12 HOURS WITH MEALS FOR 7 DAYS active Not Available Not Available No t Available [facility] 2.65 % nasal spray [...] Details Last Updated DateTime 02/11/2022 158.75 cm 38864.55 g 34.2 kg/m2 122 mm[Hg] 76 mm[Hg] Ashley Hunter [facility] 2 16:06:12 Date Recorded Body height Body mass index (BMI) Body weight Systolic blood pressure Diastolic blood pressure Provider Name and Address Organization Details Last Updated DateTime 11/23/2022 158.75 cm 34.6 kg/m2 59329.74 g 137 mm[Hg] 84 mm[Hg] Nola Mosley [facility] 3 18:13:49 Date Recorded Body height Body mass index (BMI) Body weight Systolic blood pressure Diastolic blood pressure Provider Name and Address Organization Details Last Updated DateTime 12/07/2022 158.75 cm 35.3 kg/m2 40138.1 g 128 mm[Hg] 79 mm[Hg] Ashley Lambert [facility] 3 16:30:58 Date Recorded Body height Body mass index (BMI) Body weight Systolic blood pressure Diastolic blood pressure Provider Name and Address Organization Details Last Updated DateTime 06/09/2023 158.75 cm 34.2 kg/m2 63145.55 g 136 mm[Hg] 86 mm[Hg] Sommer Koehler [facility] 4 10:48:05 Social History Question Answer Notes LastModified by Organizat ion Details LastModified Time Tobacco Smoking Status Never [facility]oker [facility] 01/14/2021 14:27:15 What Is Your [...] Anxious, Or Unable To Sleep At Night)? [id number] Information not available 01/14/2021 Do You Use [...] (Food, seasonal, environmental ) N Other N Drug/Latex Allergies/Reactions N Blood Transfusion N Breast Cancer N Dermatologic Disorders N Lung Disease N Defects or Inherited Disease N Breast Problem N Gestational Diabetes N Hematologic disorders N Anesthesia Complications N History of STI Y Deep Vein Thrombosis N Polycystic ovary syndrome N Anxiety Disorder N Autoimmune disease N Arthritis N Polyps N Infertility N Acid Reflux (GERD) N History of abnormal pap N Cancer N Varicosities N Stroke N Neurologic/Epilepsy N Endometriosis N High Cholesterol N Fibromyalgia N Headaches N Kidney Disease N Heart Problems N Thyroid Problems N Kidney or Bladder Problems N GI Problems N Eating Disorder [...] SNOMED-CT Code Diagnosis ICD10 Code Diagnosis Note [id number] Rhonda Alarcon [facility] [address] [address] 01/14/2021 14:25:42 01/14/2021 16:34:13 Gynecologic examination [id number] Z01.419 Suggested Calcium with Vitamin D 1200-1500m g daily. Patient advised to get an annual flu shot in the fall and she could obtain at [facility] or [facility] care clinic. Also to obtain TDap [...] std screenmamm o ordered Pain in pelvis 63591170 R10.2 Likely pain she is feeling is from left hip/pirifo rmis issues that are aggravatin g her lower back and sciatic nerve. However, some pain on left adnexal area so will ensure no issues & update TVUS.She is due to start PT next week for her back/sciat ic nerve pain.Heat/ ice/biofre elder [id number] Yosi Mercer MD [facility] [address] [address] 07/05/2021 13:45:37 07/05/2021 14:56:52 Vaginitis 05010801 N76.0 this patient is a 45-year-ol d [...] antifungal . She will follow-up as needed. [id number] BRIEN Reynolds [facility] [address] [address] 07/29/2021 16:12:28 07/29/2021 17:35:48 Venereal disease screening [id number] Z11.3 Sexually t ransmitted infectious disease 3247653 A64 Urinary symptoms 8780713 08 R39.9 Acute urin swathi tract infection 288601696 N39.0 Urinary burning, pain, and frequency for [...] patient was 35 minutes. Pain in pelvis 98871012 R10.2 [id number] Edilma Knott [facility] [address],[place] [address] 08/04/2021 18:01:45 08/04/2021 18:41:06 Pain in pelvis [id number] R10.2 [id number] [facility] [address],[place] [address] 08/09/2021 10:02:37 08/09/2021 10:38:44 Pain in pelvis [id number] R10.2 Blood in urine [id number] R31.9 [id number] Rhonda Alarcon , [place] [address],[place] [address] 02/11/2022 15:52:12 02/11/2022 16:50:19 Urinary symptoms [id number] R39.9 Chronic in terstitial cystitis [id number] N30.10 Suspect CIC on exam, Hx & [...] counseling and review of plan of care. [id number] Rhonda Alarcon , [facility] [address],[place] [address] 11/23/2022 18:01:45 11/24/2022 16:40:09 Genital herpes simplex 16397718 A60.9 Suspect HSV outbreakHx of HSV in the past but no outbreaks for a very long time.Rx sentDeclin ed need for std screen Counseled on medication R/B's, Most common side effects, & use. All questions were answered to patient satisfacti on. Labial cyst [id number] N9 0.7 We agreed to treat labial cyst today.Rx sentCounse led on medication R/B's, Most common side effects, & use. All questions were answered to patient satisfacti on. Return if any further issues or persists. Time spent in visit is a total of 20mins with at least 50% of visit consisting of counseling and review of plan of care. Vaginitis 36267667 N76.0 Suspect yeast on examRx sent Counseled on medication R/B's, Most common side effects, & use. All questions were answered to patient satisfacti on. [id number] [facility] [address],[place] [address] 12/07/2022 16:10:48 12/07/2022 17:41:11 Genital herpes simplex 75455909 A60.9 Wants to do suppressiv e therapy as previously discussed. Rx sent Counseled on medication R/B's, Most common side effects, & use. All questions were answered to patient satisfacti on. Time spent in visit is a total of 20 mins with at least 50% of visit consisting of counseling and review of plan of care. Vaginitis 03883810 N76.0 RF sent for PRN use [id number] Dorys Fleming [facility] [address],[place] [address] 06/09/2023 10:34:56 06/09/2023 11:43:31 Vaginitis 46418246 N76.0 vaginitis/ STI panel sentsuspec t BV/yeastrx sent, r/b/a reviewedvu lvar care guidelines discussedR TC for WWE or sooner if needed Time spent in visit is a total of 22mins with at least 50% of visit consisting of counseling and review of plan of care. Venereal d isease screening [id number] Z11.3 [id number] Catherine Euceda [facility] [address],[place] [address] 12/19/2023 09:28:17 12/19/2023 09:56:41 Urinary symptoms [id number] R39.9 Health Concerns Section Related Observation LastModified by Organization Detai ls LastModified Time None Recorded Concern Status LastModified by Organization Details LastModified Time None Recorded Advance Directives Directive None Recorded Payers Encounter Date Sequence Insurance Name Policy Number Policy Rivera Covered Member ID Rivera Member ID Guarantor Name 02/11/2022 3 [employer] [facility] PLAN - DOS PRIOR TO 04.17.2023 [id number] Roshonda L Dominguez [id number] Roshonda L Dominguez 02/11/2022 2 [place] [facility] Roshonda Dominguez [id number] Roshonda L Dominguez 11/23/2022 3 [employer] [facility] PLAN - DOS PRIOR TO 04.17.2023 [id number] Roshonda L Dominguez [id number] Roshonda L Dominguez 11/23/2022 2 [place] [facility] Roshonda Dominguez [id number] Roshonda L Dominguez 12/07/2022 3 [employer] [facility] [address] [facility] PLAN - DOS PRIOR TO 04.17.2023 [id number] Roshonda L Dominguez [id number] Roshonda L Dominguez 12/07/2022 2 [place] [facility] Roshonda Dominguez [id number] Roshonda L Dominguez 06/09/2023 2 [place] [facility] Roshonda Dominguez [id number] Roshonda L Dominguez 06/09/2023 1 [facility] [id number] Roshonda L Dominguez [id number] Roshonda L Dominguez 12/19/2023 1 [facility] [id number] Roshonda L Dominguez [id number] U Roshonda L Dominguez Notes Date Note [...] in the urine;feelings of urgency [facility]onda Alarcon [facility] [address], [place], [address], [facility] 02/11/2022 16:34:57 3 text/html Patient is here today for a painful bumps on vulva/labia, vag d/c, itching for about 3-4 days. Neg pain of abd/pelvis/flankNeg urinary sx'sNeg GI sx'sNeg N/V/F/C/DNeg Vag odor, irritation,SA-Monogamous Rhonda Alarcon [facility] [address], [place], [address], [facility] 12/15/2022 18:07:26 3 text/html Here for vulvar check f/u. Rhonda Alarcon [facility] [address], [place], [address], [facility] 12/07/2022 17:39:34 4 text/html 47yopresents for evaluation of vaginal discharge and itchingsymptoms started 1 week ago, used a new soap at a hotel and symptoms occurred afterno new partnershysterectomy for BCneg odorsneg n/v/fneg pelvic painneg flu-like symptoms Dorys Fleming [facility] [address], [place], [address], [facility] 06/09/2023 11:40:43 OBGyn Episode Ob Episode Information Episode Created Date Number of Fetuses Patient Bloodtype Patient rh Status Prepregnancy Weight lbs Domestic Partner Domestic Partner Phone Father Name Clinical Biochemical Geneticist Status 11/10/19 21 1 CLOSED Fetus Data First Name Last Name Admitted to NICU Weight (g) Sex Living Outcome Pediatric Complications Fetus ID Race Codes Race Delivery Type 2834.95 M Full Term 64883 Vaginal Delivery Daniel Calculation Initial Daniel Date [...] Domestic Partner Domestic Partner Phone Father Name Clinical Biochemical Geneticist Status 11/10/19 21 1 CLOSED Fetus Data First Name Last Name Admitted to NICU Weight (g) Sex Living Outcome Pediatric Complications Fetus ID Race Codes Race Delivery Type 3175.14 4 F Full Term 56962 Vaginal Delivery Daniel Calculation Initial Daniel Date [...] Domestic Partner Domestic Partner Phone Father Name Clinical Biochemical Geneticist Status 11/10/19 21 1 CLOSED Fetus Data First Name Last Name Admitted to NICU Weight (g) Sex Living Outcome Pediatric Complications Fetus ID Race Codes Race Delivery Type 2834.95 M Full Term 01455 Vaginal Delivery Daniel Calculation Initial Daniel Date [...] Domestic Partner Domestic Partner Phone Father Name Clinical Biochemical Geneticist Status 11/10/19 21 1 CLOSED Fetus Data First Name Last Name Admitted to NICU Weight (g) Sex Living Outcome Pediatric Complications Fetus ID Race Codes Race Delivery Type 2976.47 0704 M Full Term 57331 Vaginal Delivery Daniel Calculation Initial Daniel Date [...]
--- OUTSIDE RECORDS SUMMARY | 2024-06-07 22:23 | XMS_ITS | Clinical Summary ---
Author Organization [facility] Address [address] [place] [address] Care Team Providers Care Rn Concurrent Review Name Role Phone Farhad Fuchs MD Primary Care Provider [phone] Source Comments [facility],non-owned Affiliates and Associated Physician Practices is amultiple site organization consisting of ambulatory clinics and hospital sitesin [place], [place], [place] and [place]. This disclosure is being madepursuant to the Care Everywhere program and may not contain all information available regarding this patient. Last updated 18.[facility] Allergies Active Allergy Reactions Criticality Noted Date [...] Comments Blood Pressure 128/76 03/09/2022 10:42 AM [employer] E[employer]RON[employer] Pulse 82 01/08/2016 7:54 AM CDT Temperature 36.6 C (97.8 F) 03/09/2022 10:42 AM [employer] Respiratory Rate 16 01/08/2016 7:54 AM CDT Oxygen Saturation 100% 01/08/2016 7:54 AM CDT Inhaled Oxygen Concentration - - Weight 85.1 kg (187 lb 9.6 oz) 03/09/2022 10:42 AM [employer] Height 157.5 cm (5' 2 ) 03/09/2022 10:42 AM [employer] Body Mass Index 34.31 03/09/2022 10:42 AM [employer] Plan of Treatment Health Maintenance Due Date [...] - 106 mg/dL 01/08/2016 5:06 AM CDT [facility] Sodium 139 136 - 145 mmol/L 01/08/2016 5:06 AM CDT [facility] Potassium 3.8 3.5 - 5.1 mmol/L 01/08/2016 5:06 AM CDT [facility] Chloride 104 98 - 107 mmol/L 01/08/2016 5:06 AM CDT [facility] CO2 28 22 - 31 mmol/L 01/08/2016 5:06 AM CDT [facility] Calcium 8.9 8.5 - 10.1 mg/dL 01/08/2016 5:06 AM CDT [facility] Anion Gap 7 5 [...] Michaela Winters MD LAB - CHEMISTRY ORDERABLES [facility] [address] [place] [address] from Last 3 Months or Most Recently Relevant to Health Maintenance Advance Directives * Full Code (Latest Code Status on File) Date Activated Date Inactivated Comments 01/07/2016 7:16 PM 01/08/2016 12:15 PM * Full Code Date Activated Date Inactivated Comments 01/07/2016 3:44 PM 01/07/2016 7:16 PM Care Teams Rn Concurrent Review Relationship Specialty Start Date End Date Farhad Fuchs MD PCP - General 01/15/18
--- OUTSIDE RECORDS SUMMARY | 2024-06-07 22:23 | XMS_ITS | Referral Summary ---
Author Organization [facility] Address [address] [place] [address] Care Team Providers Care Rental Management Trainee Name Role Phone Farhad Fuchs MD Primary Care Provider [phone] Source Comments [facility],non-owned Affiliates and Associated Physician Practices is amultiple site organization consisting of ambulatory clinics and hospital sitesin [place], [place], [place] and [place]. This disclosure is being madepursuant to the Care Everywhere program and may not contain all information available regarding this patient. Last updated 18.[facility] Allergies Active Allergy Reactions Criticality Noted [...] Comments Blood Pressure 128/76 03/09/2022 10:42 AM SENIOR PATROL AGENT Pulse 82 01/08/2016 7:54 AM CDT Temperature 36.6 C (97.8 F) 03/09/2022 10:42 AM SENIOR PATROL AGENT Respiratory Rate 16 01/08/2016 7:54 AM CDT Oxygen Saturation 100% 01/08/2016 7:54 AM CDT Inhaled Oxygen Concentration - - Weight 85.1 kg (187 lb 9.6 oz) 03/09/2022 10:42 AM SENIOR PATROL AGENT Height 157.5 cm (5' 2 ) 03/09/2022 10:42 AM SENIOR PATROL AGENT Body Mass Index 34.31 03/09/2022 10:42 AM SENIOR PATROL AGENT Functional Status Functional Status Response Date of [...] PANEL (CALCIUM TOTAL) (01/08/2016 4:02 AM CDT) [facility] Glucose 95 74 - 106 mg/dL 01/08/2016 5:06 AM CDT [facility] Sodium 139 136 - 145 mmol/L 01/08/2016 5:06 AM CDT [facility] Potassium 3.8 3.5 - 5.1 mmol/L 01/08/2016 5:06 AM CDT [facility] Chloride 104 98 - 107 mmol/L 01/08/2016 5:06 AM CDT [facility] CO2 28 22 - 31 mmol/L 01/08/2016 5:06 AM CDT [facility] Calcium 8.9 8.5 - 10.1 mg/dL 01/08/2016 5:06 AM CDT [facility] Anion Gap 7 5 - 20 mmol/L 01/08/2016 5:06 AM CDT [facility] BUN 12 7 - 21 mg/dL 01/08/2016 5:06 AM CDT [facility] Creatinine 0.95 0.50 - 1.30 mg/dL 01/08/2016 5:06 AM CDT [facility] eGFR by MDRD >60 >60 mL/min/1.7 3m2 01/08/2016 5:06 AM CDT [facility] eGFR by MDRD >60 >60 mL/min/1.7 3m2 01/08/2016 5:06 AM CDT [facility] Blood BLOOD SPECIMEN / Unknown 01/08/2016 4:02 AM CDT 01/08/2016 4:35 AM CDT Michaela Winters MD LAB - CHEMISTRY ORDERABLES [facility] [address] [place] [address] from Last 3 Months or Most Recently Relevant to Health Maintenance Advance Directives * Full Code (Latest Code Status on File) Date Activated Date Inactivated Comments 01/07/2016 7:16 PM 01/08/2016 12:15 PM * Full Code Date Activated Date Inactivated Comments 01/07/2016 3:44 PM 01/07/2016 7:16 PM Care Teams Rental Management Trainee Relationship Specialty Start Date End Date Farhad Fuchs MD PCP - General 01/15/18
--- OUTSIDE RECORDS SUMMARY | 2024-06-07 22:23 | XMS_ITS | Encounter Summary ---
Author Organization [facility] Address [address] [place] [address] Care Team Providers Care Oxyhydrogen Welder Name Role Phone Carson Benavides MD Primary Care Provider [phone] Viridiana Zaidi NP Primary Care Provider [phone] Encounter Details Date Type Department Care Team (Late Contact Info) Description 09/22/2018 Abstract [facility] [address] [place] [address] , Generic Conversion, Social History Tobacco Use [...] Info) Description 07/02/2024 12:30 PM CDT Appointment [facility] [place], [place] [phone] Conner Bob MD [address] [place] [address] [phone] 07/02/2024 1:00 PM CDT Appointment [facility] [place], [place] [id number] Conner Bob MD [address] [facility] [address] [place], [place] [address] documented as of this encounter Visit Diagnoses Not on filedocumented in this encounter Additional Health Concerns Infection Onset Date Last Indicated Resolved Time 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
--- OUTSIDE RECORDS SUMMARY | 2024-06-07 22:23 | XMS_ITS | Clinical Summary ---
Author Organization [facility] Address [address] [place] [address] Phone Care Team Providers Care Fountain Helper Name Role Phone Provider, Unknown Primary Care Provider Unavaila ble Social History Tobacco Use Types Packs/Day Years Used Date Smoking Tobacco: Never Assessed Comments Unknown Sex and Gender Information Value Date Recorded Sex Assigned at Not on file Legal Sex Female 5:24 PM CDT Gender Identity Not on file Sexual Orientation Not on file Plan of Treatment Not on file Care Teams Fountain Helper Relationship Specialty Start Date End Date Provider, Unknown UNKNOWN PCP - General 10/12/16
--- OUTSIDE RECORDS SUMMARY | 2024-06-07 22:24 | XMS_ITS | Encounter Summary ---
Author Organization [facility] Address [address] [place] [address] Care Team Providers Care Amortization Clerk Name Role Phone Viridiana Zaidi NP Primary Care Provider [phone] Encounter Details Date Type Department Care Team (Late Contact Info) Description 12/12/2023 Central Desktop Message Enc [facility] Family Medicine - [place] [address] [facility] [address] [place] [phone] Viridiana Zaidi, MEASURING MACHINE TENDER [address] [place] [address] Anemia Social History Tobacco Use Types Packs/Day [...] Info) Description 07/02/2024 12:30 PM CDT Appointment [facility] [place], [place] [phone] Conner Bob MD [address] [place] [address] 07/02/2024 1:00 PM CDT Appointment [facility] [address] [facility] [address] [place] [address] Conner Bob MD [address] [facility] [address] [place], [place] [address] documented as of this encounter Visit Diagnoses Not on filedocumented in this encounter Additional Health Concerns Infection Onset Date Last Indicated Resolved Time MRSA 11/21/2016 11/21/2016 documented as of this encounter Care Teams Amortization Clerk Relationship Specialty Start Date End Date Viridiana Zaidi NP [address] [place] [address] PCP - General NURSE PRACTITIONER 06/17/21 documented as of this encounter
--- OUTSIDE RECORDS SUMMARY | 2024-06-07 22:24 | XMS_ITS | Encounter Summary ---
Author Organization [facility] Address [facility] [place] [address] Care Team Providers Care Icer Machine Name Role Phone Viridiana Zaidi NP Primary Care Provider [phone] Encounter Details Date Type Department Care Team (Late st Contact Info) Description 12/01/2022 [employer] Message Enc [facility] Family Medicine - [place] [address] [facility] [address] [place] [id number] Arnulfo [facility] Provider 1 week f/u Social History Tobacco [...] Info) Description 07/02/2024 12:30 PM CDT Appointment [facility] [place], [place] [phone] Conner Bob MD [facility] [phone] 07/02/2024 1:00 PM CDT Appointment [facility] [address] [facility] [address] Conner Bob MD [address] [facility] [address] [place], [place] [address] documented as of this encounter Visit Diagnoses Not on filedocumented in this encounter Additional Health Concerns Infection Onset Date Last Indicated Resolved Time MRSA 11/21/2016 11/21/2016 documented as of this encounter Care Teams Icer Machine Relationship Specialty Start Date End Date Viridiana Zaidi NP [address] [place] [address] PCP - General NURSE PRACTITIONER 06/17/21 documented as of this encounter
--- OUTSIDE RECORDS SUMMARY | 2024-06-07 22:24 | XMS_ITS | Clinical Summary ---
Author Organization [facility] Yessenia gilmore Shay[address] Address [address] [place] [address] Care Team Providers Care Clock Maker Name Role Phone Unavailable Primary Care Provider [...] Department Care Team Description 04/02/2024 4:30 PM ARTIFICIAL FLY TIER Telephone Check Up [facility] Oncology and Hematology - [place] [address] [place] [address] Nils De Oliveira MD Chronic anemia (Primary Dx); Lymphocytosis 03/26/2024 External Device Data STL ABSTRACTION Provider, Abstract 03/26/2024 Orders Only [facility] Oncology and Hematology - [place] [address] [place] [address] Nils De Oliveira MD 03/20/2024 Orders Only [facility] Oncology and Hematology - [place] [address] [place] [address] Nils De Oliveira MD 03/19/2024 1:30 PM ARTIFICIAL FLY TIER Office Visit [facility] Oncology and Hematology [facility] [address] [place] [address] Nils De Oliveira MD Chronic [...] Comments Blood Pressure 133/92 03/19/2024 1:15 PM ARTIFICIAL FLY TIER Pulse 83 03/19/2024 1:13 PM ARTIFICIAL FLY TIER Temperature 36.8 C (98.2 F) 03/19/2024 1:13 PM ARTIFICIAL FLY TIER Respiratory Rate 16 03/19/2024 1:13 PM ARTIFICIAL FLY TIER Oxygen Saturation 97% 03/19/2024 1:13 PM ARTIFICIAL FLY TIER Inhaled Oxygen Concentration - - Weight 89.3 kg (196 lb 12.8 oz) 03/19/2024 1:13 PM ARTIFICIAL FLY TIER Height 157.5 cm (5' 2 ) 03/19/2024 1:13 PM ARTIFICIAL FLY TIER Body Mass Index 36 03/19/2024 1:13 PM ARTIFICIAL FLY TIER Plan of Treatment Upcoming Encounters Date Type Department Care Team (Late st Contact Info) Description 07/05/2024 12:15 PM CDT Office Visit [facility] Oncology and Hematology [address] [facility] [facility] [address] [place] [address] Nils De Oliveira MD [address] [place] [address] Health Maintenance Due Date Last [...] 05/12/2021, 07/18/2020 CERVICAL CANCER SCREENING 01/15/2024 01/14/2021 DIABETES HBA1C Q 6 MONTHS 06/06/2024 12/05/2023 BREAST CANCER SCREENING 03/01/2025 03/01/2024 HPV VACCINES Aged Out No longer eligi ble based on patient's age to complete this topic Procedures Procedure Name Priority Date/Time Associated Diagnosis Comments SICKLE CELL SCREEN W/ REFLEX TO HGB ID Routine 03/19/2024 2:53 PM ARTIFICIAL FLY TIER TRANSFERRIN RECEPTOR TFR SOLUBLE Routine 03/19/2024 2:36 PM ARTIFICIAL FLY TIER COMPREHENSIVE METABOLIC PANEL Routine 03/19/2024 1:55 PM ARTIFICIAL FLY TIER from Last 3 Months Results * SICKLE CELL SCREEN W/ REFLEX TO HGB ID (03/19/2024 2:53 PM ARTIFICIAL FLY TIER) Blood us Provider Scanning HEMATOLOGY ORDERABLES COM Ann l Result * TRANSFERRIN RECEPTOR TFR SOLUBLE (03/19/2024 2:36 PM ARTIFICIAL FLY TIER) Blood Nils De Oliveira MD CHEMISTRY ORDERABLES Final Resu lt * COMPREHENSIVE METABOLIC PANEL (03/19/2024 1:55 PM ARTIFICIAL FLY TIER) Blood us Nils De Oliveira MD CHEMISTRY ORDERABLES Final Resu lt from Last 3 Months Insurance [facility] [id number] [facility] [place] Address: [facility] [id number] [place] [id number]
--- OUTSIDE RECORDS SUMMARY | 2024-06-07 22:24 | XMS_ITS | Encounter Summary ---
Author Organization [facility] Address [facility] [place] [address] Care Team Providers Care Powerhouse Oiler Name Role Phone Viridiana Zaidi NP Primary Care Provider [phone] Encounter Details Date Type Department Care Team (Late st Contact Info) Description 01/04/2023 [employer] Message Enc [facility] Family Medicine - [place] [address] [facility] [address] [place] [phone] Arnulfo [facility] Provider Reply from Viridiana Social [...] PM CDT [facility] [place] [address] Conner Bob MD [address] [phone] 07/02/2024 1:00 PM CDT Appointment [facility] [address] [facility] [place] [address] Conner Bob MD [address] [facility] [address] [place] [address] documented as of this encounter Visit Diagnoses Not on filedocumented in this encounter Additional Health Concerns Infection Onset Date Last Indicated Resolved Time MRSA 11/21/2016 11/21/2016 documented as of this encounter Care Teams Powerhouse Oiler Relationship Specialty Start Date End Date Viridiana Zaidi NP [address] [place] [address] PCP - General NURSE PRACTITIONER 06/17/21 documented as of this encounter
--- OUTSIDE RECORDS SUMMARY | 2024-06-07 22:24 | XMS_ITS | Clinical Summary ---
Author Organization [facility] Address [facility] [place] [address] Care Team Providers Care Principal Planner Name Role Phone Viridiana Zaidi NP Primary Care Provider [phone] Allergies Active Allergy Reactions Criticality Noted Date Comments Lisinopril Swelling 03/09/2022 Medications Glucose Blood (BLOOD GLUCOSE TEST STRIPS) StripIndications:P rediabetes 1 Device by Does not apply route 3 (three) times daily as needed. Check blood sugar three times a day before meals as needed. 300 strip 3 02/04/20 22 Active Blood Glucose Monitoring Suppl (ONE TOUCH ULTRA 2) w/Device KitIndications:Pre diabetes 1 Device by Does not apply route 3 (three) times daily. Check blood sugar three times a day before meals as needed 1 kit 02/04/20 22 Active Lancets (ONETOUCH ULTRASOFT) lancetsIndications :Prediabetes 1 each by Other route as needed. Check blood sugar three times a day before meals as needed 100 each 3 02/04/20 22 Active albuterol sulfate HFA 108 (90 Base) MCG/ACT inhalerIndications :Bronchitis due to COVID-19 virus Inhale 2 puffs into the lungs every 6 (six) hours as needed for Wheezing or Shortness of breath. 18 g 11/10/19 24 Active Cholecalciferol 50 MCG (1999) TabIndications:Vit baptiste D deficiency Take 1 tablet by mouth daily. 90 tablet 1 12/11/19 24 Active omeprazole (PRILOSEC) 20 MG capsuleIndications :Gastroesophageal reflux disease, unspecified whether esophagitis present TAKE 1 CAPSULE(20 MG) BY MOUTH IN THE MORNING 90 capsule 1 12/11/19 24 Active metoprolol tartrate (LOPRESSOR) 100 MG tabletIndications: Hypertension, unspecified type take 1 tablet by mouth daily 90 tablet 1 12/20/19 24 Active metFORMIN (GLUCOPHAGE) 500 MG tabletIndications: Prediabetes take 1 tablet by mouth twice daily 180 tablet 1 12/20/19 24 Active semaglutide (OZEMPIC) 2 MG/3ML injection (PEN)Indications:D iabetes Mellitus Inject 0.25 mg into the skin every 7 days. Indications: Diabetes 3 mL 03/20/20 24 Active Additional Information Patient not taking.Reported on 05/27/2024 meloxicam (MOBIC) 7.5 MG tabletIndications: Bilateral low back pain, unspecified chronicity, unspecified whether sciatica present Take 1 tablet (7.5 mg total) by mouth daily. 90 tablet 03/20/20 24 Active amLODIPine (NORVASC) 10 MG tabletIndications: Hypertension, unspecified type TAKE 1 TABLET(10 MG) BY MOUTH DAILY 90 tablet 1 04/29/19 25 Active atorvastatin (LIPITOR) 20 MG tabletIndications: Hyperlipidemia, unspecified hyperlipidemia type TAKE 1 TABLET BY MOUTH EVERY DAY 90 tablet 1 04/29/19 25 Active cephALEXin (KEFLEX) 500 MG capsuleIndications :Urinary tract infection without hematuria, site unspecified Take 1 capsule (500 mg total) by mouth 2 (two) times daily for 7 days. 14 capsule 05/27/19 25 025 Active Problems Problem Noted Date Diagnosed Date Type 2 diabetes mellitus wit hout complication, without long-term current use of insulin ([facility]) 12/11/2023 Overview (12/11/2023): Recent A1C was 6.4 [...] back to PT and with someone in [place]. Assessment & Plan (12/11/2023 10:44 AM CDT): Referral to PT in [place] placed. Gastroesophageal reflux dise ase, unspecified whether [...] CDT): Encourage stress relieving activities. Health head wrestling coach also recommended. Vitamin D deficiency 10/19/2021 [...] and lifestyle changes discussed. Encourage health head wrestling coach as well and personal shopper to help with accountability. Pt's goals are [...] Encounters Date Type Department Care Team Description 05/30/2024 MyChart Message Enc [address] [place] [address] Viridiana Zaidi NP Bladder 05/27/2024 3:00 PM LOCKSTITCH SHOULDER JOINER Office Visit [address] [place] [address] Viridiana Zaidi NP Burning With Urination (Patient presents with c/o burning with urination, urinary frequency, and left flank pain x 5 days) 05/27/2024 - 05/27/2024 11:59 PM LOCKSTITCH SHOULDER JOINER Hospital Encounter [facility] [address] [place] [address] Viridiana Zaidi NP Discharge Disposition: Home or Self Care (Routine Discharge) 05/27/2024 Travel 05/27/[address] [place] [address] Viridiana Zaidi NP UTI; Medication Request 05/25/2024 Scan [facility] SRVCS Scanned, Doc Med [facility] CT (SCAN) 05/23/2024 Scan [facility] Scanned, [facility] Colonoscopy Report (SCAN) 04/02/2024 Scan [facility] Scanned, [facility] 03/21/2024 Scan [facility] Scanned, [facility] 03/20/2024 2:00 PM LOCKSTITCH SHOULDER JOINER Office Visit [address] [place] [address] Viridiana Zaidi NP Obesity (Patient presents to discuss weight loss options) 03/20/2024 Travel 03/19/2024 Scan [facility] Scanned, [facility] 03/11/2024 Travel from Last 3 Months Immunizations Name Administration Dates Next Due PFIZER COVID-19 (MITCHELL CAP), MRNA, LNP-S, PF, 30 MCG/0.3 ML JOHN-SUCROSE, IM 05/12/2021 PFIZER COVID-19 (ORIGINAL FO RMULATION, PURPLE CAP) mRNA, LNP-S, PF, 30 MCG/0.3 ML DOSE 07/18/2020 Family History Medical History Relation Comments Diabetes Father Hypertension Father Breast Cancer Maternal Aunt unsure of age Colon Cancer Mother Diabetes Mother Diabetes-type 2 Mother Hypertension Mother [...] Sign Reading Time Taken Comments Blood Pressure 98/74 05/27/2024 2:36 PM LOCKSTITCH SHOULDER JOINER Pulse 88 05/27/2024 2:36 PM LOCKSTITCH SHOULDER JOINER Temperature 36.3 C (97.4 F) 05/27/2024 2:36 PM LOCKSTITCH SHOULDER JOINER Respiratory Rate 18 05/27/2024 2:36 PM LOCKSTITCH SHOULDER JOINER Oxygen Saturation 98% 05/27/2024 2:36 PM LOCKSTITCH SHOULDER JOINER Inhaled Oxygen Concentration - - Weight 88.5 kg (195 lb) 05/27/2024 2:36 PM LOCKSTITCH SHOULDER JOINER Height 157.5 cm (5' 2 ) 05/27/2024 2:36 PM LOCKSTITCH SHOULDER JOINER Body Mass Index 35.67 05/27/2024 2:36 PM LOCKSTITCH SHOULDER JOINER Plan of Treatment Upcoming Encounters Date Type Department Care Team (Late st Contact Info) Description 07/02/2024 12:30 PM CDT Appointment [facility] [place] [address] Lori Bob MD [facility] [address] [id number] 07/02/2024 1:00 PM CDT Appointment [facility] [place] [address] Lori Bob MD [facility] [address] [id number] Health Maintenance Due Date Last Done Comments Pneumococcal Vaccine: Pediatrics (0 to 5 Years) and At-Risk Patients (6 to 64 Years) (1 of 2 - PCV) 12/17/1983 Diabetes: Retinopathy Eye Exam 12/17/1995 DTaP, Tdap and Td Vaccines (1 - Tdap) 1996 Hepatitis B Vaccines (1 of 3 - 19+ 3-dose series) 1996 COVID-19 Vaccine (3 - season) 2023 05/12/2021, 07/18/2020 Influenza Adult (#1) 2024 Hemoglobin A1C 06/06/2024 12/05/2023, 08/0 11/2022, 10/08/2021 Kidney Health Evaluation 12/04/2024 12/05/2023 Lipid Panel 12/04/2024 12/05/2023, 08/0 11/2022, 10/08/2021 Annual Physical 12/10/2024 12/11/2023, 06/24/2021 Mammogram Screening 03/01/2026 03/01/2024, 01/30/2024, 01/30/2024, Additional history exists Colorectal Cancer Screening Colonoscopy (10 Years) 05/23/2034 05/23/2024 Hepatitis C Completed 10/08/2021 PHQ-2 ([facility]) Completed 05/27/2024 Meningococcal B Vaccine Aged Out No l onger eligible based on patient's age to complete this topic Meningococcal Vaccine Aged Out No cecily jonathan eligible based on patient's age to complete this topic RSV Immunizations Under 20 Months Aged Out No longer eligible based on patient's age to complete this topic Procedures Procedure Name Priority Date/Time Associated Diagnosis Comments URINE BACTERIA CULTURE Routine 05/27/2024 2:40 PM LOCKSTITCH SHOULDER JOINER Burning with urination URINALYSIS AUTO DIP Routine 05/27/[address] GENERIC 05/25/2024 COLONOSCOPY GENERIC (SCAN ORDER) 05/23/2024 MG DIAGNOSTIC RT DIGI Routine 03/01/2024 7:24 AM LOCKSTITCH SHOULDER JOINER Breast mass, right LIPID PANEL Routine 12/05/2023 9:24 AM CDT Hyperlipidemia, unspecified hyperlipidemia type HEMOGLOBIN, GLYCOSYLATED Routine 12/05/2023 9:24 AM CDT Type 2 diabetes mellitus without complication, without long-term current use of insulin (CMS/HCC HHS/HCC) HEPATITIS C ANTIBODY W/RFX TO HCV RNA Routine 10/08/2021 12:59 PM CDT from Last 3 Months or Most Recently Relevant to Health Maintenance Results * URINE BACTERIA CULTURE (05/27/2024 2:40 PM LOCKSTITCH SHOULDER JOINER) SPEC DESCRIPTION URINE CLEAN CATCH 05/27/2024 6:54 PM LOCKSTITCH SHOULDER JOINER [facility] SPECIAL REQUESTS NO SPECIAL REQUEST 05/27/2024 6:54 PM LOCKSTITCH SHOULDER JOINER [facility] CULTURE RESULT FEW CONTAMINANTS 05/18 8:12 AM LOCKSTITCH SHOULDER JOINER [facility] URINE SPECIMEN OBTAINED BY CLEAN CATCH PROCEDURE / Unknown 05/27/2024 2:40 PM LOCKSTITCH SHOULDER JOINER 05/27/2024 8:50 PM LOCKSTITCH SHOULDER JOINER Viridiana Zaidi NP MICROBIOLOGY - GENERAL OR DERABLES Final Result [facility] [address] [place] [address], [phone] * (ABNORMAL) URINALYSIS AUTO DIP (05/27/2024) COLOR (U) ORANGE(A) YELLOW [address] [place] Comment:Patient took AZO TRANSPARENCY CLEAR CLEAR [facility] [place] GLUCOSE (U) 100 mg/dl(A) NEGATIVE MG/DL [facility] [place] BILIRUBIN (U) NEGATIVE NEGATIVE [address] [place] KETONES MG/DL (U) 5 (TRACE)(A) NEGATIVE MG/DL [facility] [place] SPECIFIC GRAVITY (U) 1.010 1.001 - 1.035 [facility] [place] BLOOD (U) NEGATIVE NEGATIVE [address] [place] U PH 5.0 5.0 - 9.0 [facility] [place] PROTEIN (U) 3+ (>=300)(A) NEGATIVE mg/dL [facility] [place] UROBILINOGEN 2.0(A) 0.2 - 1.0 EU/dL = mg/dL [facility] [place] NITRITES POSITIVE(A) NEGATIVE MG/DL [facility] [place] LEUKOCYTES (U) 3+ (LARGE)(A) NEGATIVE [facility] [place] URINE SPECIMEN OBTAINED BY CLEAN CATCH PROCEDURE / Unknown 05/27/2024 Viridiana Zaidi DRY CLEANER PRESSER URINE ORDERABLES Final Re sult [address] [place] [address] [place] [address], * CT GENERIC (05/25/2024) Anatomical Region Laterality Modality Other 05/25/2024 us [facility] Scanned SCANNING Final Resu lt * COLONOSCOPY GENERIC (SCAN ORDER) (05/23/2024) 05/23/2024 [facility] Scanned SCANNING Final Resu lt * MG DIAGNOSTIC RT DIGI (03/01/2024 7:24 AM LOCKSTITCH SHOULDER JOINER) Anatomical Region Laterality Modality Breast Right Mammography 03/01/2024 7:56 AM LOCKSTITCH SHOULDER JOINER Impressions 03/01/2024 8:01 AM LOCKSTITCH SHOULDER JOINER IMPRESSION: Ultrasound-guided right breast biopsy performed by Dr. Bob. Postbiopsy changes as above. Ordered By: LORI BOB Interpreted By: Zack Fortune, 03/01/2024 7:56 AM Narrative 03/01/2024 8:01 AM LOCKSTITCH SHOULDER JOINER [facility] [address] [place], [place] [address] EXAMINATION: MG DIAGNOSTIC RT DIGI, US GD BREAST BX RT BIRAD [id number] INDICATIONS: Unspecified lump in the right breast, [...] lateral subdermal breast. No evident postbiopsy hematoma. Lori Bob MD MAMMO Final Result * (ABNORMAL) HEMOGLOBIN, GLYCOSYLATED (12/05/2023 9:24 AM CDT) HGB A1C 6.4(H) 4.5 - 6.2 % 12/05/2023 3:39 PM CDT [facility] ESTIMATED AVG GLUCOSE 137(H) 74 - 106 MG/DL 12/05/2023 3:39 PM CDT [facility] 12/05/2023 9:24 AM CDT Viridiana Zaidi NP LABORATORY Final Res ult [facility] [place] [address] [place] [address], * LIPID PANEL (12/05/2023 9:24 AM CDT) [facility] CHOLESTEROL 166 <200 MG/DL 12/05/2023 3:34 PM CDT [facility] TRIGLYCERIDES 111 <150 MG/DL 12/05/2023 3:34 PM CDT [facility] HDL 67 >40 MG/DL 12/05/2023 3:34 PM CDT [facility] LDL-C 77 <100 MG/DL 12/05/2023 3:34 PM CDT [facility] VLDL CALCULATION 22 5 - 28 MG/DL 12/05/2023 3:34 PM CDT [facility] CHOL/HDL RATIO 2.5 0.0 - 4.0 12/05/2023 3:34 PM CDT [facility] LDL/HDL 1.1 0.41 - 2.13 12/05/2023 3:34 PM CDT [facility] NON HDL CHOLESTEROL 99 <140 MG/DL 12/05/2023 3:34 PM CDT [facility] 12/05/2023 9:24 AM CDT us Viridiana Zaidi NP LABORATORY Final Res ult [facility] [address] [place] [address], * HEPATITIS C ANTIBODY W/RFX TO HCV RNA (10/08/2021 12:59 PM CDT) [facility] HEPATITIS C AB NON-REACTI VE NON-REACT PHILIP [facility] SIGNAL TO CUTOFF 0.06 <[address] [facility] Comment: HCV antibody was non-reactive. There is no laboratory evidence of HCV infection. In most cases, no further action is required. However, if recent HCV exposure is suspected, a test for HCV RNA (test code 63259) is suggested. For additional information please refer to http://education.Axxana/faq/XGK95u2 (This link is being provided for informational/ educational purposes only.) 10/08/2021 12:5 9 PM CDT 10/08/2021 1:00 PM CDT Narrative [facility] - 10/14/2021 5:13 PM CDT FASTING:YES FASTING: YES Vriidiana Zaidi NP LABORATORY Final Res ult [facility] [address] [place] [address] from Last 3 Months or Most Recently Relevant to Health Maintenance Additional Health Concerns Infection Onset Date Last Indicated MRSA 11/21/2016 11/21/2016 Insurance [facility] Care Teams Principal Planner Relationship Specialty Start Date End Date Viridiana Zaidi NP [address] [place] [address] PCP - General NURSE PRACTITIONER 06/17/21
--- OUTSIDE RECORDS SUMMARY | 2024-06-07 22:24 | XMS_ITS | Encounter Summary ---
Author Organization [facility] Address [facility] [place] [address] Care Team Providers Care Sponge Hooker Name Role Phone Viridiana Zaidi NP Primary Care Provider [phone] Encounter Details Date Type Department Care Team (Late st Contact Info) Description 10/12/2022 [place] [facility]ative Message [facility] [address] [place], [place] [address] [facility], [facility] Provider Air Quality Message Social History Tobacco [...] Info) Description 07/02/2024 12:30 PM CDT Appointment [facility] [address] [place], [place] [id number] Conner Bob MD [facility] [address] 07/02/2024 1:00 PM CDT Appointment [facility] [address] [place] [address] Conner Bob MD [address] [facility] [address] [place] [address] documented as of this encounter Visit Diagnoses Not on filedocumented in this encounter Additional Health Concerns Infection Onset Date Last Indicated Resolved Time MRSA 11/21/2016 11/21/2016 documented as of this encounter Care Teams Sponge Hooker Relationship Specialty Start Date End Date Viridiana Zaidi NP [address] [place] [address] PCP - General NURSE PRACTITIONER 06/17/21 documented as of this encounter
[2024-06-07 22:31] VITALS: BP 124/77; PULSE 86; RESP 20; TEMP 36.6; O2SAT 100
--- OUTSIDE RECORDS SUMMARY | 2024-06-07 23:47 | XMS_ITS | Clinical Summary ---
Author Organization [facility] Address [address] [place] [address] Care Team Providers Care Industrial Services Worker Name Role Phone Farhad Fuchs MD Primary Care Provider [phone] Source Comments [facility],non-owned Affiliates and Associated Physician Practices is amultiple site organization consisting of ambulatory clinics and hospital sitesin [place], [place], [place] and [place]. This disclosure is being madepursuant to the Care Everywhere program and may not contain all information available regarding this patient. Last updated 18.[facility] Allergies Active Allergy Reactions Criticality Noted Date [...] Comments Blood Pressure 128/76 03/09/2022 10:42 AM SOUND ENGINEER Pulse 82 01/08/2016 7:54 AM CDT Temperature 36.6 C (97.8 F) 03/09/2022 10:42 AM SOUND ENGINEER Respiratory Rate 16 01/08/2016 7:54 AM CDT Oxygen Saturation 100% 01/08/2016 7:54 AM CDT Inhaled Oxygen Concentration - - Weight 85.1 kg (187 lb 9.6 oz) 03/09/2022 10:42 AM SOUND ENGINEER Height 157.5 cm (5' 2 ) 03/09/2022 10:42 AM SOUND ENGINEER Body Mass Index 34.31 03/09/2022 10:42 AM SOUND ENGINEER Plan of Treatment Health Maintenance Due Date [...] - 106 mg/dL 01/08/2016 5:06 AM CDT [facility] Sodium 139 136 - 145 mmol/L 01/08/2016 5:06 AM CDT [facility] Potassium 3.8 3.5 - 5.1 mmol/L 01/08/2016 5:06 AM CDT [facility] Chloride 104 98 - 107 mmol/L 01/08/2016 5:06 AM CDT [facility] CO2 28 22 - 31 mmol/L 01/08/2016 5:06 AM CDT [facility] Calcium 8.9 8.5 - 10.1 mg/dL 01/08/2016 5:06 AM CDT [facility] Anion Gap 7 5 - 20 [...] Michaela Winters MD LAB - CHEMISTRY ORDERABLES [facility] [address] [place] [address] from Last 3 Months or Most Recently Relevant to Health Maintenance Advance Directives * Full Code (Latest Code Status on File) Date Activated Date Inactivated Comments 01/07/2016 7:16 PM 01/08/2016 12:15 PM * Full Code Date Activated Date Inactivated Comments 01/07/2016 3:44 PM 01/07/2016 7:16 PM Care Teams Industrial Services Worker Relationship Specialty Start Date End Date Farhad Fuchs MD PCP - General 01/15/18
--- OUTSIDE RECORDS SUMMARY | 2024-06-07 23:48 | XMS_ITS | Clinical Summary ---
Author Organization [facility] Address [address] [place] [address] Phone Care Team Providers Care Grazing Aide Name Role Phone Provider, Unknown Primary Care Provider Unavaila ble Social History Tobacco Use Types Packs/Day Years Used Date Smoking Tobacco: Never Assessed Comments Unknown Sex and Gender Information Value Date Recorded Sex Assigned at Not on file Legal Sex Female 5:24 PM CDT Gender Identity Not on file Sexual Orientation Not on file Plan of Treatment Not on file Care Teams Grazing Aide Relationship Specialty Start Date End Date Provider, Unknown UNKNOWN PCP - General 10/12/16
--- OUTSIDE RECORDS SUMMARY | 2024-06-07 23:48 | XMS_ITS | Patient Health Summary ---
Author Organization [facility] Address [address] [place] [address] Care Team Providers Care Elevator Supervisor Name Role Phone Farhad Fuchs MD Primary Care Provider [phone] Note from [facility],non-owned Affiliates and Associated Physician Practices is amultiple site organization consisting of ambulatory clinics and hospital sitesin [place], [place], [place]. This disclosure is being madepursuant to the Care Everywhere program and may not contain all information available regarding this patient. Last updated 18.[facility] Allergies * Lisinopril(Swelling) Medications * Be [...] Comments Blood Pressure 128/76 03/09/2022 10:42 AM STEAM TANK OPERATOR Pulse 82 01/08/2016 7:54 AM CDT Temperature 36.6 C (97.8 F) 03/09/2022 10:42 AM STEAM TANK OPERATOR Respiratory Rate 16 01/08/2016 7:54 AM CDT Oxygen Saturation 100% 01/08/2016 7:54 AM CDT Inhaled Oxygen Concentration - - Weight 85.1 kg (187 lb 9.6 oz) 03/09/2022 10:42 AM STEAM TANK OPERATOR Height 157.5 cm (5' 2 ) 03/09/2022 10:42 AM STEAM TANK OPERATOR Body Mass Index 34.31 03/09/2022 10:42 AM STEAM TANK OPERATOR Procedures * URINALYSIS AUTO - POINT OF [...] POINT OF CARE (AMB) [facility] (03/09/2022) Pathologist [facility] Glucose UA neg Bilirubin UA POCT neg Ketones UA POCT neg Specific [place] UA 1.020 Blood Urine POCT neg pH UA 6.0 Protein UA neg Urobilinogen UA 0.2 Nitrite UA neg WBC UA neg Urine URINE / Unknown 03/09/2022 Bertram Graves MD LAB - POINT OF CARE ORDERABLES * CULTURE URINE (03/09/2022) Pathologist [facility] Culture QUEST Comment: CULTURE, URINE, ROUTINE Micro Number: [id number] Test Status: Final Specimen Source: Urine clean Specimen Quality: Adequate Result: No Growth Test Performed at: [address] [address] JAMES QUEEN MD Urine URINE SPECIMEN OBTAINED BY CLEAN CATCH PROCEDURE / Unknown 03/09/2022 03/10/2022 1:50 AM STEAM TANK OPERATOR Bertram Graves MD LAB - MICROBIOLOGY O RDERABLES [address] [address] * CARDIAC RHYTHM STRIP ORDER (01/12/2016 10:26 PM CDT) Narrative 01/12/2016 10:26 PM CDT Ordered by an unspecified provider. Scanned Document CARDIAC SERVICES ORD ERABLES * CARDIAC EKG ORDER (01/09/2016 9:42 PM CDT) Narrative 01/09/2016 9:42 PM CDT Ordered by an unspecified provider. Scanned Document CARDIAC SERVICES ORD ERABLES * ECHOCARDIOGRAM 2D WITH DOPPLER (01/08/2016 9:37 AM CDT) 01/08/2016 9:37 AM CDT Narrative [facility] - 01/08/2016 1:57 PM CDT [facility] [address] [place] [id number] Transthoracic Echocardiogram 2D, M-mode, Doppler, and Color Doppler Patient: JOHANNA PALMER MR number: [id number] Height: 62 in Weight: 184 lb BSA: 1.85 m Study date: 08-Jan-2016 : 1975 Age: 40 years Gender: Female Race: Black Diagnoses: R41.82 - Altered mental status, unspecified Reading Physician: Bob Marie MD Referring Physician: Michaela Winters M.D [employer] MANAGER: Kamar Salinas. [facility] Cardiology Group: [facility] Student: Rhys Rowe Summary: - Clinical [...] Procedure: The study was performed in the [facility]. This was a routine study. Room 753 [...] MV A Marquez: 0.6 m/s MV Dec [place]: 3.9 m/s2 MV E Marquez: 0.8 m/s MV E/A Ratio: 1.3 RVSP: 41.6 mmHg Septal e': 0.1 m/s Prepared and signed by Bob Marie MD Signed 08-Jan-2016 13:56:26 Procedure Note Bob Marie MD - 01/08/[address] [address] Transthoracic Echocardiogram 2D, M-mode, Doppler, and Color Doppler Patient: JOHANNA PALMER MR number: [id number] Height: 62 in Weight: 184 lb BSA: 1.85 m Study date: 08-Jan-2016 : 1975 Age: 40 years Gender: Female Race: Black Diagnoses: R41.82 - Altered mental status, unspecified Reading Physician: Bob Marie MD Referring Physician: Michaela Winters M.D [employer] FARM MANAGER: Kamar Salinas. [facility] Cardiology Group: [facility] [place] Student: Rhys Rowe Summary: - Clinical [...] Procedure: The study was performed in the [facility]. This was a routine study. Room 753 [...] MV A Marquez: 0.6 m/s MV Dec [place]: 3.9 m/s2 MV E Marquez: 0.8 m/s MV E/A Ratio: 1.3 RVSP: 41.6 mmHg Septal e': 0.1 m/s Prepared and signed by Bob Marie MD Signed 08-Jan-2016 13:56:26 Michaela Winters MD ECHO ORDERABLES [facility] * (ABNORMAL) GLUCOSE - POINT OF CARE (01/08/2016 7:28 AM CDT) Only the most recent of3 resultswithin the time period is included. Glucose WB/POC 137(H) 70 - 106 mg/dL 01/08/2016 8:13 AM CDT [facility] Blood BLOOD SPECIMEN / Unknown 01/08/2016 7:28 AM CDT 01/08/2016 8:13 AM CDT Nadira Muhammad MD LAB - POINT OF CARE ORDERABLES [facility] [address] [id number] * BASIC METABOLIC PANEL (CALCIUM TOTAL) (01/08/2016 4:02 AM CDT) Only the most recent of2 resultswithin the time period is included. Glucose 95 74 - 106 mg/dL 01/08/2016 5:06 AM CDT [facility] Sodium 139 136 - 145 mmol/L 01/08/2016 5:06 AM CDT [facility] Potassium 3.8 3.5 - 5.1 mmol/L 01/08/2016 5:06 AM CDT [facility] Chloride 104 98 - 107 mmol/L 01/08/2016 5:06 AM CDT [facility] CO2 28 22 - 31 mmol/L 01/08/2016 5:06 AM CDT [facility] Calcium 8.9 8.5 - 10.1 mg/dL 01/08/2016 5:06 AM T [facility] Anion Gap 7 5 - 20 mmol/L 01/08/2016 5:06 AM CDT [facility] BUN 12 7 - 21 mg/dL 01/08/2016 5:06 AM CDT [facility] Creatinine 0.95 0.50 - 1.30 mg/dL 01/08/2016 5:06 AM T [facility] eGFR by MDRD >60 >60 mL/min/1.7 3m2 01/08/2016 5:06 AM CDT [facility] eGFR by MDRD >60 >60 mL/min/1.7 3m2 01/08/2016 5:06 AM CDT [facility] Blood BLOOD SPECIMEN / Unknown 01/08/2016 4:02 AM CDT 01/08/2016 4:35 AM CDT Michaela Winters MD LAB - CHEMISTRY ORDERABLES [facility] [address] [place] [address] * (ABNORMAL) URINALYSIS ROUTINE W/REFLEX TO CULTURE (01/07/2016 1:32 PM CDT) Color UA Yellow Straw, Yellow, Dark Yellow 01/07/2016 1:44 PM CDT [facility] Clarity UA Clear 01/07/2016 1:44 PM CDT [facility] Specific [place] UA >1.030(H) 1.005 - 1.030 01/07/2016 1:44 PM CDT [facility] pH UA 5.5 5.0 - 8.0 pH 01/07/2016 1:44 PM CDT [facility] Protein UA Negative Negative 01/07/2016 1:44 PM CDT [facility] Blood UA Negative Negative 01/07/2016 1:44 PM CDT [facility] Leukocyte UA Negative Negative 01/07/2016 1:44 PM CDT [facility] Nitrite UA Negative Negative 01/07/2016 1:44 PM CDT [facility] Glucose UA Negative Negative 01/07/2016 1:44 PM CDT [facility] Ketone UA Negative Negative 01/07/2016 1:44 PM CDT [facility] Bilirubin UA Negative Negative 01/07/2016 1:44 PM CDT [facility] Urobilinogen UA 0.2 0.1 - 1.0 EU/dL 01/07/2016 1:44 PM CDT [facility] Reflex Status Culture not indicated 01/07/2016 1:44 PM CDT [facility] Urine URINE SPECIMEN OBTAINED BY CLEAN CATCH PROCEDURE / Unknown 01/07/2016 1:32 PM CDT 01/07/2016 1:39 PM CDT Michaela Winters MD LAB - URINALYSIS ORDERABLES Performing Organization Address City/[facility]/ZIP Co de Phone Number [facility] [address] [place] [address] * HCG URINE QUALITATIVE (01/07/2016 1:32 PM CDT) [facility] hCG Qualitative Urine Negative Negative 01/07/2016 3:05 PM CDT [facility] Urine URINE / Unknown 01/07/2016 1 :32 PM CDT 01/07/2016 2:55 PM CDT Michaela Winters MD LAB - URINALYSIS ORDERABLES Performing Organization Address [facility] de Phone Number [facility] [id number] [place] [phone] * DRUG SCREEN TOX URINE PANEL (01/07/2016 1:32 PM CDT) [facility] Amphetamines Screen Urine Not Detected Not Detected 01/07/2016 1:51 PM CDT [facility] Barbiturates Screen Urine Not Detected Not Detected 01/07/2016 1:51 PM CDT [facility] Benzodiazepines Screen Urine Not Detected Not Detected 01/07/2016 1:51 PM CDT [facility] Cannabinoids Screen Urine Not Detected Not Detected 01/07/2016 1:51 PM CDT [facility] Cocaine Screen Urine Not Detected Not Detected 01/07/2016 1:51 PM CDT [facility] Methadone Screen Urine Not Detected Not Detected 01/07/2016 1:51 PM CDT [facility] Opiate Screen Urine Not Detected Not Detected 01/07/2016 1:51 PM CDT [facility] Phencyclidine Screen Urine Not Detected Not Detected 01/07/2016 1:51 PM CDT [facility] Urine URINE / Unknown 01/07/2016 1 :32 PM CDT 01/07/2016 1:39 PM CDT Narrative [facility] - 01/07/2016 1:51 PM CDT This [...] MD LAB - URINE CHEM ISTRY ORDERABLES [facility] [address] [place] [address] * CT ANGIO HEAD NECK STROKE (01/07/2016 [...] a normal course and caliber to the [place]. CT angiogram of the head: Basilar artery is patent. Posterior cerebral arteries are patent. Proximal middle and anterior cerebral arteries are patent. No focal stenoses are noted. Major dural venous sinuses are patent. Reconstructed images demonstrate a normal course and caliber to the [place]. No aneurysmal dilatation is identified. [...] a normal course and caliber to the [place]. CT angiogram of the head: Basilar artery is patent. Posterior cerebral arteries are patent. Proximal middle and anterior cerebral arteries are patent. No focal stenoses are noted. Major dural venous sinuses are patent. Reconstructed images demonstrate a normal course and caliber to the [place]. No aneurysmal dilatation is identified. [...] is performed with dynamic contrast injection with screening representative axial images of the brain. 150 [...] is performed with dynamic contrast injection with screening representative axial images of the brain. 150 [...] POINT OF ARE ORDERABLES Performing Organization Address [facility] Co de Phone Number [facility] [address] [place] [address] * PT WHOLE BLOOD - POINT OF CARE (01/07/2016 11:56 AM CDT) Pathologist [facility] QC Verified Yes Yes [facility] POC T [...] POINT OF ARE ORDERABLES Performing Organization Address [facility] Co de Phone Number [facility] [address] [place] [address] * NT-PRO BNP (01/07/2016 11:54 AM CDT) NT-proBNP 22.0 <300.0 pg/mL 01/07/2016 12:24 PM CDT [facility] Blood BLOOD SPECIMEN / Unknown 01/07/2016 11:54 AM CDT 01/07/2016 11:54 AM CDT Narrative [facility] - 01/07/2016 12:24 PM CDT NT-proBNP [...] Michaela Winters MD LAB - CHEMISTRY ORDERABLES [facility] [address] [place] [address] * PROLACTIN (01/07/2016 11:54 AM CDT) Prolactin 9.60 ng/mL 01/07/2016 3:19 PM CDT [facility] Blood BLOOD SPECIMEN / Unknown 01/07/2016 11:54 AM CDT 01/07/2016 2:54 PM CDT Narrative [facility] - 01/07/2016 3:19 PM CDT Prolactin Reference Interval: Female Non: 2.80 - 29.20 ng/mL Female : 9.70 - 208.50 ng/mL Female Postmenopausal: 1.80 - 20.39 ng/mL Male: 2.10 - 17.70 ng/mL Michaela Winters MD LAB - CHEMISTRY ORDERABLES [facility] [address] [place] [address] * (ABNORMAL) CBC W AUTO DIFFERENTIAL (01/07/2016 11:54 AM CDT) WBC 8.1 4.4 - 10.7 x10E9/L 01/07/2016 12:05 PM CDT [facility] WBC Corrected x10E9/L 01/07/2016 12:05 PM CDT [facility] RBC 3.90 3.80 - 5.20 x10E12/L 01/07/2016 12:05 PM CDT [facility] Hemoglobin 12.0 12.0 - 15.6 gm/dL 01/07/2016 12:05 PM CDT [facility] Hematocrit 35.1(L) 35.9 - 45.5 % 01/07/2016 12:05 PM CDT [facility] MCV 90.0 80.7 - 98.3 fl 01/07/2016 12:05 PM CDT [facility] MCH 30.8 26.7 - 34.0 pg 01/07/2016 12:05 PM CDT [facility] MCHC 34.2 30.8 - 35.9 gm/dL 01/07/2016 12:05 PM CDT [facility] Platelet Count 369 153 - 416 x10E9/L 01/07/2016 12:05 PM CDT [facility] RDW-CV 12.2 12.1 - 14.9 % 01/07/2016 12:05 PM CDT [facility] MPV 10.0 9.4 - 12.9 fl 01/07/2016 12:05 PM CDT [facility] Neutrophils % 38.2(L) 44.0 - 73.0 % 01/07/2016 12:05 PM CDT [facility] Lymphocytes % 50.7(H) 20.0 - 43.0 % 01/07/2016 12:05 PM CDT [facility] Monocytes % 6.9 5.0 - 13.0 % 01/07/2016 12:05 PM CDT [facility] Eosinophils % 3.5 0.0 - 6.0 % 01/07/2016 12:05 PM CDT [facility] Basophils % 0.5 0.0 - 2.0 % 01/07/2016 12:05 PM CDT [facility] Immature Granulocytes 0.2 0 - 1 % 01/07/2016 12:05 PM CDT [facility] Neutrophil Absolute 3.07 2.01 - 7.14 x10E9/L 01/07/2016 12:05 PM CDT [facility] Lymphocytes Absolute 4.09(H) 1.07 - 3.94 x10E9/L 01/07/2016 12:05 PM CDT [facility] Monocytes Absolute 0.56 0.26 - 1.07 x10E9/L 01/07/2016 12:05 PM CDT [facility] Eosinophils Absolute 0.28 0 - 0.47 x10E9/L 01/07/2016 12:05 PM CDT [facility] Basophils Absolute 0.04 0 - 0.08 x10E9/L 01/07/2016 12:05 PM CDT [facility] Immature Granulocytes Absolute 0.02 0.00 - 0.06 x10E9/L 01/07/2016 12:05 PM CDT [facility] nRBC Auto 0 /100 WBC 01/07/2016 12:05 PM CDT [facility] Blood BLOOD SPECIMEN / Unknown 01/07/2016 11:54 AM CDT 01/07/2016 11:54 AM CDT Michaela Winters MD LAB - HEMATOLOGY ORDERABLES Performing Organization Address City/State/[facility] Co de Phone Number [facility] [address] [place] [address] * CT HEAD NON CONTRAST [...] visualized paranasal sinuses are clear. Procedure Note Aanbela Talbert MD - 01/07/2016 CT Head Noncontrast [...] CDT) ABO O 01/07/2016 12:55 PM CDT [facility] Rh Type Positive 01/07/2016 12:55 PM CDT [facility] Antibody Screen Negative 01/07/2016 12:55 PM CDT [facility] Miscellaneous samples (specimen) BLOOD SPECIMEN / Unknown 01/07/2016 11:53 AM CDT 01/07/2016 11:53 AM CDT Michaela Winters MD LAB - BLOOD BANK ORDERABLES [facility] [address] * PT PTT PANEL (01/07/2016 11:53 AM CDT) PT 10.2 9.5 - 11.6 sec 01/07/2016 12:16 PM CDT [facility] INR 1.0 0.9 - 1.1 01/07/2016 12:16 PM CDT [facility] PTT 22.9 21.0 - 32.0 sec 01/07/2016 12:16 PM CDT [facility] Blood BLOOD SPECIMEN / Unknown 01/07/2016 11:53 AM CDT 01/07/2016 11:53 AM CDT Narrative [facility] - 01/07/2016 12:16 PM CDT Conventional Warfarin Anticoagulant Therapy: INR Reference Range: 2.0-3.0 Intensive Warfarin Anticoagulant Therapy: INR Reference Range: 2.5-3.5 Heparin Therapeutic Range for PTT: 47.7 - 68.6 seconds. Michaela Winters MD LAB - COAGULATIO N ORDERABLES Performing Organization Address [facility] Co de Phone Number [facility] [address] [place] [address] * MAGNESIUM BLOOD (01/07/2016 11:53 AM CDT) Pathologist [facility] Magnesium 1.9 1.6 - 2.6 mg/dL 01/07/2016 12:17 PM CDT [facility] Blood BLOOD SPECIMEN / Unknown 01/07/2016 11:53 AM CDT 01/07/2016 11:53 AM CDT Mihcaela Winters MD LAB - CHEMISTRY ORDERABLES Performing Organization Address [facility] de Phone Number [facility] [id number] [place] [address] * EKG 12-LEAD (01/07/2016 11:17 AM CDT) Ventricular Rate 64 BPM [facility] Atrial Rate 64 BPM [facility] P-R Interval 140 ms [facility] QRS Duration ms 84 ms [facility] Q-T Interval ms 420 ms [facility] QTC Calculation (Bezet) 433 ms [facility] Calculated P [place] 37 degrees [facility] Calculated R [place] 26 degrees [facility] Calculated T [place] -3 degrees [facility] Interpretation EKG Normal sinus rhythm Nonspecific T wave abnormality Abnormal ECG No previous ECGs available Confirmed by MD LORENZO, BOB ([id number]) on 01/08/2016 10:04:51 AM [facility] 01/07/2016 11:1 7 AM CDT 01/08/2016 10:04 AM CDT Michaela Winters MD ECG ORDERABLES Performing Organization Address [facility] Co de Phone Number [facility] * XR LUMBAR SPINE 2 OR [...] Volume Amnio 13 ml [facility] Interpretation [facility] Comment: FLM Immature ......... <= 39 mg/g Mature ......... >= 55 mg/g Results between 40 and 54 cannot be declared mature or immature and should be evaluated with caution. AMNIOTIC FLUID SPECIMEN / Unknown 10/05/2009 8:35 AM CDT 10/05/2009 10:52 AM CDT Jeff Damon MD LAB - BODY FLUID O RDERABLES [facility] [address] [place] [address] Care Teams Elevator Supervisor Relationship Specialty Start Date End Date Farhad Fuchs MD PCP - General 01/15/18
--- OUTSIDE RECORDS SUMMARY | 2024-06-07 23:48 | XMS_ITS | Clinical Summary ---
Author Organization [facility] Yessenia gilmore [address]ay[address] Address [address] [place] [address] Care Team Providers Care Windows Server Administrator Name Role Phone Unavailable Primary Care Provider [...] Department Care Team Description 04/02/2024 4:30 PM INTERMEDIATE SCHOOL TEACHER Telephone Check Up [facility] Oncology and Hematology - [address] [place] [address] Nils De Oliveira MD Chronic anemia (Primary Dx); Lymphocytosis 03/26/2024 External Device Data STL ABSTRACTION Provider, Abstract 03/26/2024 Orders Only [facility] Oncology and Hematology - [address] [place] [address] Nils De Oliveira MD 03/20/2024 Orders Only [facility] Oncology and Hematology - [address] [place] [address] Nils De Oliveira MD 03/19/2024 1:30 PM INTERMEDIATE SCHOOL TEACHER Office Visit [facility] Oncology and Hematology [facility] [address] [place] [address] Nils De Oliveira MD Chronic [...] Comments Blood Pressure 133/92 03/19/2024 1:15 PM INTERMEDIATE SCHOOL TEACHER Pulse 83 03/19/2024 1:13 PM INTERMEDIATE SCHOOL TEACHER Temperature 36.8 C (98.2 F) 03/19/2024 1:13 PM INTERMEDIATE SCHOOL TEACHER Respiratory Rate 16 03/19/2024 1:13 PM INTERMEDIATE SCHOOL TEACHER Oxygen Saturation 97% 03/19/2024 1:13 PM INTERMEDIATE SCHOOL TEACHER Inhaled Oxygen Concentration - - Weight 89.3 kg (196 lb 12.8 oz) 03/19/2024 1:13 PM INTERMEDIATE SCHOOL TEACHER Height 157.5 cm (5' 2 ) 03/19/2024 1:13 PM INTERMEDIATE SCHOOL TEACHER Body Mass Index 36 03/19/2024 1:13 PM INTERMEDIATE SCHOOL TEACHER Plan of Treatment Upcoming Encounters Date Type Department Care Team (Late st Contact Info) Description 07/05/2024 12:15 PM CDT Office Visit [facility] Oncology and Hematology [address] [place] [address] Nils De Oliveira MD [address] [place] [address] Health Maintenance Due Date Last [...] TO HGB ID Routine 03/19/2024 2:53 PM INTERMEDIATE SCHOOL TEACHER TRANSFERRIN RECEPTOR TFR SOLUBLE Routine 03/19/2024 2:36 PM INTERMEDIATE SCHOOL TEACHER COMPREHENSIVE METABOLIC PANEL Routine 03/19/2024 1:55 PM INTERMEDIATE SCHOOL TEACHER from Last 3 Months Results * SICKLE CELL SCREEN W/ REFLEX TO HGB ID (03/19/2024 2:53 PM INTERMEDIATE SCHOOL TEACHER) Blood us Provider Scanning HEMATOLOGY ORDERABLES COM Ann l Result * TRANSFERRIN RECEPTOR TFR SOLUBLE (03/19/2024 2:36 PM INTERMEDIATE SCHOOL TEACHER) Blood Nils De Oliveira MD CHEMISTRY ORDERABLES Final Resu lt * COMPREHENSIVE METABOLIC PANEL (03/19/2024 1:55 PM INTERMEDIATE SCHOOL TEACHER) Blood us Nils De Oliveira MD CHEMISTRY ORDERABLES Final Resu lt from Last 3 Months Insurance [facility] [id number] Member Subscriber Plan / Payer (Ef fective 2023-Present) Name:Johanna Dominguez Relation to Subscriber:Self Name:Johanna Dominguez Payer ID:[id number] (NAIC) Type:[facility] Address: [facility] [id number] [id number]
--- OUTSIDE RECORDS SUMMARY | 2024-06-07 23:48 | XMS_ITS | Referral Summary ---
Author Organization [facility] Address [address] [place] [address] Care Team Providers Care Exhibit Designer Name Role Phone Farhad Fuchs MD Primary Care Provider [phone] Source Comments [facility],non-owned Affiliates and Associated Physician Practices is amultiple site organization consisting of ambulatory clinics and hospital sitesin [place], [place], [place] and [place]. This disclosure is being madepursuant to the Care Everywhere program and may not contain all information available regarding this patient. Last updated 18.[facility] Allergies Active Allergy Reactions Criticality [...] Comments Blood Pressure 128/76 03/09/2022 10:42 AM [facility] Pulse 82 01/08/2016 7:54 AM CDT Temperature 36.6 C (97.8 F) 03/09/2022 10:42 AM [facility] Respiratory Rate 16 01/08/2016 7:54 AM CDT Oxygen Saturation 100% 01/08/2016 7:54 AM CDT Inhaled Oxygen Concentration - - Weight 85.1 kg (187 lb 9.6 oz) 03/09/2022 10:42 AM [facility] Height 157.5 cm (5' 2 ) 03/09/2022 10:42 AM [facility] Body Mass Index 34.31 03/09/2022 10:42 AM [facility] Functional Status Functional Status Response Date of [...] PANEL (CALCIUM TOTAL) (01/08/2016 4:02 AM CDT) [facility] Glucose 95 74 - 106 mg/dL 01/08/2016 5:06 AM CDT [facility] Sodium 139 136 - 145 mmol/L 01/08/2016 5:06 AM CDT [facility] Potassium 3.8 3.5 - 5.1 mmol/L 01/08/2016 5:06 AM CDT [facility] Chloride 104 98 - 107 mmol/L 01/08/2016 5:06 AM CDT [facility] CO2 28 22 - 31 mmol/L 01/08/2016 5:06 AM CDT [facility] Calcium 8.9 8.5 - 10.1 mg/dL 01/08/2016 5:06 AM CDT [facility] Anion Gap 7 5 - 20 mmol/L 01/08/2016 5:06 AM CDT [facility] BUN 12 7 - 21 mg/dL 01/08/2016 5:06 AM CDT [facility] Creatinine 0.95 0.50 - 1.30 mg/dL 01/08/2016 5:06 AM CDT [facility] eGFR by MDRD >60 >60 mL/min/1.7 3m2 01/08/2016 5:06 AM CDT [facility] eGFR by MDRD >60 >60 mL/min/1.7 3m2 01/08/2016 5:06 AM CDT [facility] Blood BLOOD SPECIMEN / Unknown 01/08/2016 4:02 AM CDT 01/08/2016 4:35 AM CDT Michaela Winters MD LAB - CHEMISTRY ORDERABLES [facility] [address] [place] [address] from Last 3 Months or Most Recently Relevant to Health Maintenance Advance Directives * Full Code (Latest Code Status on File) Date Activated Date Inactivated Comments 01/07/2016 7:16 PM 01/08/2016 12:15 PM * Full Code Date Activated Date Inactivated Comments 01/07/2016 3:44 PM 01/07/2016 7:16 PM Care Teams Exhibit Designer Relationship Specialty Start Date End Date Farhad Fuchs MD PCP - General 01/15/18
== END 2024-06-07 23:46 | disposition left against medical advice (07) ==
LOC: ANHED 23:45
PROVIDERS: PCP Nurse Practitioner
DX: R07.89 Other chest pain (principal)
CPT/HCPCS: 99199

== ENCOUNTER 2024-06-18 08:43 | Outpatient (CLI) | payer OTHER, SELFPAY ==
[2024-06-18 09:01] LABS: Basophils Percent Auto 0.5 % (0.2-1.2); Eosinophils Absolute Auto 0.3 K/mm3 (0-0.3); Eosinophils Percent Auto 3.6 % (0-4.4); Hematocrit 33.3 % (37.0-47.0); Hemoglobin 11.1 g/dL (12.0-15.0); Immature Granulocyte Absolute 0.01 K/mm3 (0.00-0.031); Immature Granulocyte Percent A 0.1 % (0-0.5); Lymphocytes Percent Auto 42.7 % (18.3-44.2); Mean Corpuscular HGB Conc 33.3 g/dl (32-36); Mean Corpuscular Hemoglobin 30.6 pg (26-34); Mean Corpuscular Volume 91.7 fl (80-100); Mean Platelet Volume 9.2 fl (7.4-10.4); Monocytes Absolute Auto 0.5 K/mm3 (0.1-0.6); Neutrophils Absolute Auto 3.5 K/mm3 (1.3-6.7); Neutrophils Percent Auto 47.1 % (45.5-73.1); Platelet Count Result 359 k/mm3 (150-375); Red Blood Count 3.63 M/mm3 (4.2-5.4); Red Cell Distribution Width 12.4 % (11.5-14.5); White Blood Count 7.5 K/mm3 (4.5-10.0)
[2024-06-18 10:16] LABS: Anion Gap 11 mmol/L (4-12); Blood Urea Nitrogen 8 mg/dL (7-17); Calcium 9.1 mg/dL (8.4-10.2); Carbon Dioxide 24 mmol/L (22-30); Chloride 104 mmol/L (98-107); Estimated Glomerular Filt Rate > 60; Glucose 186 mg/dL (65-110); Potassium 3.7 mmol/L (3.4-5.0); Sodium 139 mmol/L (137-145)
== END 2024-06-18 08:44 | disposition home or self-care (01) ==
PROVIDERS: PCP Nurse Practitioner; Visit Provider Internal Medicine Hematology & Oncology
DX: D64.9 Anemia, unspecified (principal); D72.820 Lymphocytosis (symptomatic)
CPT/HCPCS: 36415; 80048; 85025; 88184

== ENCOUNTER 2024-07-10 17:30 | Emergency (ER) | payer OTHER, SELFPAY ==
--- NOTE | ~2024-07-10 | XR_ITS ---
XR knee LT 3V Ordering provider: TROY Chiang History: . pain, swelling, popping x1 wk. No injury . Comparison: None. FINDINGS: BONES: No acute fracture or dislocation. JOINT SPACES: Slight narrowing of the medial compartment with marginal osteophytes.. SOFT TISSUES: Normal. IMPRESSION: No acute osseous abnormality left knee. Mild osteoarthritic changes. Reviewed, dictated and finalized at location A.
[2024-07-10 17:49] VITALS: BP 135/91; PULSE 83; RESP 16; TEMP 36.4; O2SAT 100
--- NOTE | 2024-07-10 18:23 | ED_ITS ---
HPI - Extremity Injury (Lower) General Chief Complaint: Extremity Injury, Lower Stated Complaint: INJURED R KNEE Time Seen by Provider: 07/10/24 18:18 Source: patient and RN notes reviewed Mode of arrival: ambulatory Limitations: no limitations History of Present Illness HPI Narrative: Patient presents today complaining of popping, swelling, stiffness, and pain to the right knee x1 week. Denies any known injury or trauma. Denies numbness or tingling in the leg or foot. Currently rates her pain 6/10 and has been taking ibuprofen and using an Beto wrap with mild relief. Related Data Home Medications ?Medication ?Instructions ?Recorded ?Confirmed ?Last Taken ?Type hydrochlorothiazide 12.5 mg capsule 12.5 mg PO DAILY 01/08/23 05/08/24 Unknown History gabapentin 100 mg capsule 100 mg PO DIRECTED 04/14/23 05/08/24 Unknown History valacyclovir 500 mg tablet 500 mg PO DIRECTED 04/14/23 05/08/24 Unknown History Allergies Allergy/AdvReac Type Severity Reaction Status Date / Time No Known Allergies Allergy Verified 07/10/24 17:52 Review of Systems Review of Systems: CONSTITUTIONAL: Denies body aches, fever, chills, or sweats. EYES: Denies visual changes, redness, or discharge. ENT: Denies rhinorrhea, congestion, sore throat, or otalgia. CARDIOVASCULAR: Denies chest pain, palpitations, or edema. RESPIRATORY: Denies cough or dyspnea. GASTROINTESTINAL: Denies abdominal pain, nausea, vomiting, or diarrhea. GENITOURINARY: Denies dysuria or hematuria. SKIN: Denies rash, itching, or wounds. MUSCULOSKELETAL: + right knee pain, swelling, popping NEUROLOGIC: Denies headache, numbness, tingling, or weakness. PSYCH: Denies depression or anxiety. [facility] Past Medical History Medical History Colon cancer screening Diabetes Genital herpes Hypovitaminosis D Lymphocytosis High cholesterol Vision abnormalities Bakers cyst Allergic rhinitis Knee pain Atypical chest pain Asthma Essential hypertension IFG (impaired fasting glucose) Hepatic steatosis GERD (gastroesophageal reflux disease) Pre-diabetes HLD (hyperlipidemia) Hypertension Surgical History Surgical History H/O tubal ligation History of reduction mammoplasty H/O: hysterectomy Family History Family History Mother Hypertension Diabetes mellitus Family history of alcoholism Family history of Alzheimer's disease Social History Social History Smoking status: Never smoker Second hand tobacco smoke exposure: No Alcohol intake: never Alcohol use details: Occasional Substance use: never Substance use type: does not use Lack of Transportation: No Lack of Food: Never True Current Housing: I Have Housing Concerned About Future Housing: No Difficulty Paying Gas/Electric Bills: No Difficulty Paying for Meds: No Currently Unemployed: No Education: Bachelor's Degree Difficulty w/ Childcare or Family Care: No Living arrangements: with family Gender identity (if verbalized by the patient): Female Sexual Orientation (if Verbalized by the Patient): Straight or Heterosexual Spiritual care concerns: No Comments At time of signature, I have reviewed and agree with nursing past medical, surgical, social and family history unless otherwise noted. Please see nursing chart for further information. There is no relevant family history pertinent to the presenting complaint Exam Narrative: GENERAL: Well-appearing, well-nourished, and in no acute distress. HEAD: Normocephalic, atraumatic. EYES: EOMI. No redness or drainage. Conjunctivae normal. ENT: Mucous membranes pink and moist. NECK: Normal AROM. CHEST: No respiratory distress. EXTREMITIES: Right knee: Tenderness to the lateral joint line extending posteriorly. No tenderness medially. No bony tenderness of the patella. No tenderness to the patellar tendon. No obvious edema, erythema, ecchymosis. Patient does have obvious soft tissue crepitus with P ROM. Distal sensation intact. Capillary refill normal. SKIN: Warm, dry, no rash. Capillary refill normal. Normal skin turgor. NEURO: No focal deficits. Alert and oriented x3. Gait steady. PSYCH: Normal affect. No signs of depression or anxiety. Course Course Level of Care: Express Care Visit Vital Signs Vital signs: Vital Signs Temperature 97.5 F L 07/10/24 17:49 Pulse Rate 83 07/10/24 17:49 Respiratory Rate 16 07/10/24 17:49 Blood Pressure 135/91 H 07/10/24 17:49 Pulse Oximetry 100 07/10/24 17:49 Temperature 97.5 F L 07/10/24 17:49 Pulse Rate 83 07/10/24 17:49 Respiratory Rate 16 07/10/24 17:49 Blood Pressure 135/91 H 07/10/24 17:49 Pulse Oximetry 100 07/10/24 17:49 Reviewed MDM - Extremity Injury (Lower) MDM Narrative Medical decision making narrative: X-ray shows mild osteoarthritis, but otherwise negative. Patient will be started on a short course of prednisone to see if this will help with her discomfort. Also recommend continuing conservative treatment such as Beto wrap and ice as well as PCP or orthopedic follow-up. Patient agrees with plan. Anticipatory guidance given. Differential Diagnosis Differential diagnosis: Likely other (Knee strain, tendinitis, ligamentous injury, meniscus injury) Imaging Data Radiologist's impression: ITS Impressions Knee X-Ray 07/10/24 18:59 IMPRESSION: No acute osseous abnormality left knee. Mild osteoarthritic changes. Critical Care Time Critical Care Time Critical Care Time: No Discharge Plan Discharge Clinical Impression: Knee pain, right Qualifiers: Chronicity: acute Qualified Code(s): M25.561 - Pain in right knee Patient Disposition: Home, Self-Care Condition: Stable Instructions: Swollen Knee Joint (ED), Knee Pain (ED) Additional Instructions: Your knee x-ray shows bit of arthritis otherwise negative. Please take the prednisone as directed. Ice and elevate the knee. Continue the Beto wrap if this is helpful to you. Follow-up with your PCP or orthopedic physician for further evaluation and treatment of your discomfort. Your blood pressure was elevated above 120/80 today at Urgent Care. This puts you above the threshold for follow up. Please schedule a followup visit with your personal physician as soon as possible, for further evaluation and treatment. Even blood pressure exceeding 120/80 may indicate pre-hypertension. Patient Language: Marshallese Prescriptions: New prednisone 10 mg tablet 30 mg PO DAILY 5 Days Qty: 15 0RF No Action valacyclovir 500 mg tablet 500 mg PO DIRECTED gabapentin 100 mg capsule 100 mg PO DIRECTED hydrochlorothiazide 12.5 mg capsule 12.5 mg PO DAILY Saline Nasal Mist 3 % aerosol,spray 2 spray intranasal TID Qty: 213 0RF ondansetron 4 mg tablet,disintegrating 4 mg PO Q8H PRN (Reason: nausea and vomiting) Qty: 10 0RF hydrocodone-acetaminophen 5-325 mg tablet 1 tablet PO Q12H PRN (Reason: pain) Qty: 10 0RF atorvastatin 20 mg tablet 20 mg PO DAILY Qty: 90 1RF metformin 500 mg tablet 500 mg PO BID Qty: 120 1RF amlodipine 10 mg tablet See Rx Instructions .ROUTE .COMPLEX Qty: 90 1RF Dose Instruction: TAKE 1 TABLET BY MOUTH DAILY Rx Instructions: TAKE 1 TABLET BY MOUTH DAILY metoprolol tartrate 100 mg tablet See Rx Instructions .ROUTE .COMPLEX Qty: 180 1RF Dose Instruction: TAKE 1 TABLET BY MOUTH TWICE DAILY Rx Instructions: TAKE 1 TABLET BY MOUTH TWICE DAILY Follow-up/Referrals: Zach Kim MD [Physician] - [facility] [Primary Care Provider] - Stand Alone Forms: Work/School Release IP Time of Disposition: 19:20
== END 2024-07-10 19:22 | disposition home or self-care (01) ==
PROVIDERS: Emergency Provider Nurse Practitioner; PCP Nurse Practitioner
DX: M25.561 Pain in right knee (principal); E11.9 Type 2 diabetes mellitus without complications; Z79.84 Long term (current) use of oral hypoglycemic drugs; I10 Essential (primary) hypertension; E78.00 Pure hypercholesterolemia, unspecified; J45.909 Unspecified asthma, uncomplicated; K76.0 Fatty (change of) liver, not elsewhere classified; K21.9 Gastro-esophageal reflux disease without esophagitis
CPT/HCPCS: 73562; 99213; G0463

== ENCOUNTER 2024-09-09 05:35 | Observation (INO) | payer OTHER, SELFPAY ==
[2024-09-09] VITALS (13 sets, daily range): BP systolic 114–169; BP diastolic 59–107; PULSE 79–133; RESP 14–20; TEMP 36.8–37; O2SAT 94–100; BMI 33.5
--- NOTE | ~2024-09-09 | XR_ITS ---
CHEST RADIOGRAPH, PA AND LATERAL CLINICAL HISTORY: palpations . COMPARISON: 11/05/2023 TECHNIQUE: PA and lateral views of the chest. FINDINGS The cardiomediastinal silhouette is unremarkable. The lungs are clear. Visualized osseous structures and soft tissues are unremarkable. IMPRESSION: No focal infiltrate or effusion. Reviewed, dictated and finalized at location A.
--- NOTE | ~2024-09-09 | CT_ITS ---
EXAMINATION: CTA chest PE protocol DATE: 09/09/2024 10:34 CDT INDICATION: Shortness of breath with tachycardia TECHNIQUE: Computed tomographic angiography (CTA) of the chest was performed with 100 mL Omnipaque-35 0 intravenous contrast. The dose-length product was 616.19 mGy-cm. Maximum intensity projection 3D-re constructions of the aorta and other arteries were constructed by the technologist on a separate work station. COMPARISON: None. FINDINGS/OBSERVATIONS: PULMONARY ARTERIES: No filling defect is identified within the main or proximal pulmonary artery. The main pulmonary artery is not enlarged. THORACIC AORTA: No aneurysmal dilatation or dissection is present. The great vessels are intact LUNGS: The lungs are clear. MEDIASTINUM: No morphologically suspicious or pathologically enlarged lymph nodes are identified with in the mediastinum or bilateral axilla. BONES OF THE CHEST: No acute fracture. No significant degenerative disease. No lytic or blastic lesions. HEART: The heart is of normal size, without pericardial effusion. IMPRESSION: No pulmonary embolus. No thoracic aortic dissection. The lungs are clear. Reviewed, dictated and finalized at location A.
--- NOTE | ~2024-09-09 | NM_ITS ---
EXAMINATION: NM stress w perf spect multi DATE: 09/10/2024 13:28 INDICATION: Elevated troponins TECHNIQUE: Rest images were obtained following intravenous administration of 9.2 mCi Tc99m tetrofosmi n ([employer]). The patient performed an exercise activity. At peak exercise, 30.0 mCi Tc99m tetrofosmin ([employer]) was administered intravenously, and stress images were obtained. Data was reconstructed in to short axis and horizontal and vertical long axis SPECT images. Gated SPECT images were also obtain ed. COMPARISON: None. FINDINGS: There is normal left ventricular perfusion without definite evidence of reversible or fixed perfusion abnormality to suggest ischemia or infarction. There is normal left ventricular chamber size, wall motion and ejection fraction. Left ventricular ejection fraction measures >70%. IMPRESSION: 1. Normal myocardial perfusion at rest and during stress. 2. Left ventricular ejection fraction measuring >70%. Reviewed, dictated and finalized at location A.
--- OUTSIDE RECORDS SUMMARY | 2024-09-09 05:38 | XMS_ITS | Data Portability ---
Author Organization KAUSHAL ALTHEAScott Address [address] [place] [address] Assessment No assessment recorded. Plan of Treatment Reminders Order Date Submit Date Provider Last Modified By Organization Details Last Modified Time Details Appointments None recorded. Lab HbA1c (hemoglobi n A1c), blood [address] [facility] (Lab), [address], [place], [address], 7 06:16:52 lipid panel w/ direct LDL, serum [address] [facility] (Lab), [address], [place], [address], 7 20:10:49 BMP, serum or plasma [address] [facility] (Lab), [address], [place], [address], 7 20:10:48 TSH, serum or plasma [address] [facility] (Lab), [address], [place], [address], 7 07:19:[address] [facility] (Lab), [address], [place], [address], 7 18:56:52 lipid panel, serum [address] [facility] (Lab), [address], [place], [address], 7 19:38:55 CMP, serum or plasma [address] [facility] (Lab), [address], [place], [address], 7 19:38:15 HbA1c (hemoglobi n A1c), blood [address] [facility] (Lab), [address], [place], [address], 7 09:22:37 glucose, fingerstic k, blood 2016 017 [facility] In-Office Order, Internal Use Only DO Not Attach Compendium DO Not Attach Compendium, Do Not Delete/merge, [id number] 7 15:02:38 Referral None recorded. Procedures None recorded. Surgeries None recorded. Imaging None recorded. Medication Orders penicillin V potassium 500 mg tablet 2017 018 [facility] #12253, [address] [place], [place], [id number], 8 11:01:01 Tylenol-Co deine #3 300 mg-30 mg tablet 2017 018 [facility] #46612, [address] [place], [place], [id number], 8 11:00:55 hydrochlor othiazide 25 mg tablet 2017 018 [facility], [address] [place], [place], [id number], 8 11:01:07 metformin 500 mg tablet 2017 018 [facility] #27745, [address], [place], [place], [id number], 8 11:01:06 metoprolol tartrate 100 mg tablet 2017 018 [facility], [address], [place], [place], [id number], 8 11:01:06 atorvastat in 20 mg tablet 2017 018 [facility], [address], [place], [place], [id number], 8 11:01:16 hydrochlor othiazide 25 mg tablet 2016 017 [facility], [address], [place], [place], [id number], 7 15:53:40 metformin 500 mg tablet 2016 017 [facility], [address], [place], [place], [id number], 7 15:53:40 metoprolol tartrate 100 mg tablet 2016 017 [facility], [address], [place], [place], [id number], 7 15:53:40 cyclobenza mike 10 mg tablet 2016 017 [facility], [address], [place], [place], [id number], 7 15:53:39 Lloyd 5 mg-325 mg tablet 2016 017 [facility] #60426, [address], [place], [place], [id number], 7 14:47:18 atorvastat in 20 mg tablet 2016 017 [facility], [address], [place], [place], [id number], 7 15:53:40 hydrochlor othiazide 25 mg tablet 2016 017 [facility] #64831, [address], [place], [place], [id number], 7 12:42:57 metformin 500 mg tablet 2016 017 [facility] #74578, [address], [place], [place], [id number], 7 12:42:58 metoprolol tartrate 100 mg tablet 2016 017 [facility] #05879, [address], [place], [place], [id number], 7 12:42:58 cyclobenza mike 10 mg tablet 2016 017 [facility] #50211, [address], [place], [place], [id number], 7 12:42:56 Lloyd 5 mg-325 mg tablet 2016 017 [facility] #93559, [address], [place], [place], [id number], 7 12:00:51 atorvastat in 20 mg tablet 2016 017 [facility] #62726, [address], [place], [place], [id number], 7 12:42:56 hydrochlor othiazide 25 mg tablet 2016 017 [facility] #77990, [address], [place], [place], [id number], 7 08:12:46 metformin 500 mg tablet 2016 017 [facility], [address], [place], [place], [id number], 7 08:12:47 metoprolol tartrate 100 mg tablet 2016 017 [facility]580[facility], [address], [place], [place], [id number], 7 08:12:47 naproxen 500 mg tablet 2016 017 [facility], [address], [place], [place], [id number], 7 08:12:46 atorvastat in 20 mg tablet 2016 017 [facility], [address], [place], [place], [id number], 7 08:12:49 metoprolol tartrate 100 mg tablet 2016 017 [facility], [address], [place], [place], [id number], 7 15:02:55 hydrochlor othiazide 25 mg tablet 2016 017 [facility], [address], [place], [place], [id number], 7 15:02:48 fluoxetine 20 mg capsule 2016 017 [facility], [address], [place], [place], [id number], 7 15:02:47 Lloyd 5 mg-325 mg tablet 2016 017 [facility] #24451, [address], [place], [place], [id number], 7 15:02:38 Patient TargetsNo targets recorded. Patient Instructions Encounter Date Encounter Id Patient Instructions Last Modified By Organization Details Last Modified Time 08/03/2016 [id number] learning about high blood sugar Not available 08/03/2016 15:18:04 When You Want to Lose Weight: Care Instructions Not available 08/03/2016 15:18:04 back care and preventing injuries: care instructions Not available 08/03/2016 15:18:04 learning about high blood pressure Not available 08/03/2016 15:18:04 08/30/2016 [id number] learning about high blood sugar Not available 08/31/2016 09:35:46 When You Want to Lose Weight: Care Instructions Not available 08/31/2016 09:35:46 back care and preventing injuries: care instructions Not available 08/31/2016 09:35:46 learning about high blood pressure Not available 08/31/2016 09:35:46 high cholesterol : care instructions Not available 08/31/2016 09:35:46 11/04/2016 [id number] When You Want to Lose Weight: Care Instructions Not available 11/04/2016 12:56:56 back care and preventing injuries: care instructions Not available 11/04/2016 12:56:56 learning about high blood pressure Not available 11/04/2016 12:56:56 01/31/2017 [id number] learning about high blood sugar Not available 01/31/2017 17:02:36 When You Want to Lose Weight: Care Instructions Not available 01/31/2017 17:02:36 bronchitis: care instructions Not available 01/31/2017 17:02:36 back care and preventing injuries: care instructions Not available 01/31/2017 17:02:36 learning about high blood pressure Not available 01/31/2017 17:02:36 11/08/2017 [id number] tooth and gum pain: care instructions balbarcha [...] DO Not Attach Compendium, Do Not Delete/merge, [id number] 08/03/2016 15:00:04 08/04/19 17 08/03/2016 CBC WBC 8.0 K/uL 3.4-10 .8 Not Available [facility] (Lab) [address] [facility], [place], [address], 08/03/2016 18:56:51 08/04/19 17 08/03/2016 CBC red blood count 3.8 M/uL 4.2-5. 4 low Not Available [facility] (Lab) [address] [place], [address], 08/03/2016 18:56:51 08/04/19 17 08/03/2016 CBC hemoglobin 11.3 g/dL 11.5-1 5.5 low Not Available [facility] (Lab) [address] [place], [address], 08/03/2016 18:56:51 08/04/19 17 08/03/2016 CBC hematocrit 35.3 % 36.0-4 8.0 low Not Available [facility] (Lab) [address] [place], [address], 08/03/2016 18:56:51 08/04/1908/03/2016 CBC MCV 92 fL 80-95 Not Available [facility] (Lab) [address] [place], [address], 08/03/2016 18:56:51 08/04/19 17 08/03/2016 CBC MCHC 32 g/dL 32-36 Not Available [facility] (Lab) [address], [place], [address], 08/03/2016 18:56:51 08/04/19 17 08/03/2016 CBC platelets 359 K/uL 155-37 9 Not Available [facility] (Lab) [address], [place], [address], 08/03/2016 18:56:51 08/04/19 17 08/03/2016 CBC RDW 12.4 % 11.5-1 4.5 Not Available [facility] (Lab) [address] [facility], [place], [address], 08/03/2016 18:56:51 08/04/19 17 08/03/2016 CMP, serum or plasm a glucose, serum 92 mg/dL 65-99 Not Available [facility] ([facility]) [address], [place], [address], 08/03/2016 19:38:15 08/04/19 17 08/03/2016 CMP, serum or plasm a BUN 6 mg/dL 8-26 low Not Available [facility] (Lab) [address], [place], [address], 08/03/2016 19:38:15 08/04/19 17 08/03/2016 CMP, serum or plasm a creatinine, serum 0.70 mg/dL 0.50-1 .40 Not Available [facility] (Lab) [address], [place], [address], 08/03/2016 19:38:15 08/04/19 17 08/03/2016 CMP, serum or plasm a BUN/creatnin e ratio 8.6 Not Available [facility] [address], [place], [address], 08/03/2016 19:38:15 08/04/19 17 08/03/2016 CMP, serum or plasm a sodium, serum 139.0 mEq/L 136.0- 144.0 Not Available [facility] (Lab) [address], [place], [address], 08/03/2016 19:38:15 08/04/19 17 08/03/2016 CMP, serum or plasm a potassium, serum 4.0 mmol/ L 3.5-5. 3 Not Available [facility] (Lab) [address], [place], [address], 08/03/2016 19:38:15 08/04/19 17 08/03/2016 CMP, serum or plasm a chloride, serum 99 mmol/ l 101-11 1 low Not Available [facility] (Lab) [address], [place], [address], 08/03/2016 19:38:15 08/04/19 17 08/03/2016 CMP, serum or plasm a carbon dioxide total 25.7 mmol/ L 21.0-3 2.0 Not Available [facility] (Lab) [address], [place], [address], 08/03/2016 19:38:15 08/04/19 17 08/03/2016 CMP, serum or plasm a aniongp 18.0 mmol/ L Not Available [facility] (Lab) [address], [place], [address], 08/03/2016 19:38:15 08/04/19 17 08/03/2016 CMP, serum or plasm a calcium, serum 9.8 mg/dL 8.2-10 .0 Not Available [facility] (Lab) [address], [place], [address], 08/03/2016 19:38:15 08/04/19 17 08/03/2016 CMP, serum or plasm a total protein 8.5 g/dL 6.7-8. 2 high Not Available [facility] (Lab) [address], [place], [address], 08/03/2016 19:38:15 08/04/19 17 08/03/2016 CMP, serum or plasm a albumin, serum 4.6 g/dL 3.5-5. 5 Not Available [facility] (Lab) [address], [place], [address], 08/03/2016 19:38:15 08/04/19 17 08/03/2016 CMP, serum or plasm a agratio 1.2 Not Available [facility] (Lab) [address] [place], [address], 08/03/2016 19:38:15 08/04/19 17 08/03/2016 CMP, serum or plasm a bilt 0.4 mg/dL 0.2-1. 0 Not Available [facility] (Lab) [address] [place], [address], 08/03/2016 19:38:15 08/04/19 17 08/03/2016 CMP, serum or plasm a AST 27.0 U/L 10.0-4 2.0 Not Available [facility] (Lab) [address] [place], [address], 08/03/2016 19:38:15 08/04/19 17 08/03/2016 CMP, serum or plasm a ALT 34.0 U/L 10.0-6 0.0 Not Available [facility] (Lab) [address] [facility], [place], [address], 08/03/2016 19:38:15 08/04/19 17 08/03/2016 CMP, serum or plasm a alk phos 93.0 IU/L 42.0-1 21.0 Not Available [facility] (Lab) [address] [facility], [place], [address], 08/03/2016 19:38:15 08/04/19 17 08/03/2016 CMP, serum or plasm a osmol 275.0 mOsm/ L 275.0- 301.0 Not Available [facility] (Lab) [address] [place], [address], 08/03/2016 19:38:15 08/04/19 17 08/03/2016 CMP, serum or plasm a eGFR, AM 121 m/lmi n/1.7 3_m >=60 Not Available [facility] (Lab) [address], [place], [address], 08/03/2016 19:38:15 08/04/19 17 08/03/2016 CMP, serum or plasm a eGFR, non- AM 100 mL/mi n/1.7 3/m >=60 Not Available [facility] (Lab) [address], [place], [address], 08/03/2016 19:38:15 08/04/19 17 08/03/2016 lipid panel w/ direc t LDL, serum cholestrol 269.0 mg/dL 140.0- 200.0 high Not Available [facility] (Lab) [address], [place], [address], 08/03/2016 19:38:55 08/04/19 17 08/03/2016 lipid panel w/ direc t LDL, serum triglyceride s 130 mg/mL 150-19 9 low Not Available [facility] (Lab) [address], [place], [address], 08/03/2016 19:38:55 08/04/19 17 08/03/2016 lipid panel w/ direc t LDL, serum HDL cholesterol 62.0 mg/dL 40.0-1 00.0 Not Available [facility] (Lab) [address], [place], [address], 08/03/2016 19:38:55 08/04/19 17 08/03/2016 lipid panel w/ direc t LDL, serum LDL direct 198 mg/dL <=100 high Not Available [facility] ([facility]) [address], [place], [address], 08/03/2016 19:38:55 08/04/1908/03/2016 lipid panel w/ direc t LDL, serum cholhdl 4.30 mg/dL 0.00-4 .98 Not Available [facility] (Lab) [address] [place], [address], 08/03/2016 19:38:55 08/04/19 17 08/04/2016 TSH, serum or plasm a TSH 2.780 uIU/m L 0.450- 4.500 Not Available [facility] (Lab) [address], [place], [address], 08/04/2016 07:19:43 08/04/19 17 08/04/2016 TSH, serum or plasm a T4,free(dire ct) 1.00 NG/dL 0.82-1 .77 Not Available [facility] (Lab) [address], [place], [address], 08/04/2016 07:19:43 08/04/19 17 08/04/2016 HbA1c (hemo globi n A1c), blood hemoglobin A1C 6.5 % 4.8-5. 6 high . Pre-d iabet es: 5.7 - 6.4 Diabe linda: >6.4 Glyce mavis contr ol for adult s with diabe linda: <7.0 Not Available [facility] (Lab) [address], [place], [address], 08/04/2016 09:22:37 11/05/19 17 11/04/2016 BMP, serum or plasm a glucose, serum 98 mg/dL 65-99 Not Available [facility] (Lab) [address], [place], [address], 11/04/2016 20:10:48 11/05/19 17 11/04/2016 BMP, serum or plasm a BUN 8 mg/dL 8-26 Not Available [facility] (Lab) [address] [place], [address], 11/04/2016 20:10:48 11/05/19 17 11/04/2016 BMP, serum or plasm a creatinine, serum 0.70 mg/dL 0.50-1 .40 Not Available [facility] (Lab) [address] [place], [address], 11/04/2016 20:10:48 11/05/19 17 11/04/2016 BMP, serum or plasm a BUN/creatnin e ratio 11.4 Not Available [facility] (Lab) [address], [place], [address], 11/04/2016 20:10:48 11/05/19 17 11/04/2016 BMP, serum or plasm a sodium, serum 141.0 mEq/L 136.0- 144.0 Not Available [facility] (Lab) [address], [place], [address], 11/04/2016 20:10:48 11/05/19 17 11/04/2016 BMP, serum or plasm a potassium, serum 3.9 mmol/ L 3.5-5. 3 Not Available [facility] (Lab) [address], [place], [address], 11/04/2016 20:10:48 11/05/19 17 11/04/2016 BMP, serum or plasm a chloride, serum 99 mmol/ l 101-11 1 low Not Available [facility] (Lab) [address], [place], [address], 11/04/2016 20:10:48 11/05/19 17 11/04/2016 BMP, serum or plasm a carbon dioxide total 28.2 mmol/ L 21.0-3 2.0 Not Available [facility] (Lab) [address], [place], [address], 11/04/2016 20:10:48 11/05/19 17 11/04/2016 BMP, serum or plasm a aniongp 18.0 mmol/ L Not Available [facility] (Lab) [address], [place], [address], 11/04/2016 20:10:48 11/05/19 17 11/04/2016 BMP, serum or plasm a calcium, serum 9.8 mg/dL 8.2-10 .0 Not Available [facility] (Lab) [address] [place], [address], 11/04/2016 20:10:48 11/05/19 17 11/04/2016 BMP, serum or plasm a osmol 280.0 mOsm/ L 275.0- 301.0 Not Available [facility] (Lab) [address] [place], [address], 11/04/2016 20:10:48 11/05/19 17 11/04/2016 BMP, serum or plasm a eGFR, AM 121 m/lmi n/1.7 3_m >=60 Not Available [facility] (Lab) [address] [place], [address], 11/04/2016 20:10:48 11/05/19 17 11/04/2016 BMP, serum or plasm a eGFR, non- AM 100 mL/mi n/1.7 3/m >=60 Not Available [facility] (Lab) [address] [facility], [place], [address], 11/04/2016 20:10:48 11/05/19 17 11/04/2016 lipid panel w/ direc t LDL, serum cholestrol 168.0 mg/dL 140.0- 200.0 Not Available [facility] (Lab) [address] [place], [address], 11/04/2016 20:10:49 11/05/19 17 11/04/2016 lipid panel w/ direc t LDL, serum triglyceride s 97 mg/mL 150-19 9 low Not Available [facility] (Lab) [address] [place], [address], 11/04/2016 20:10:49 11/05/19 17 11/04/2016 lipid panel w/ direc t LDL, serum HDL cholesterol 55.0 mg/dL 40.0-1 00.0 Not Available [facility] (Lab) [address] [place], [address], 11/04/2016 20:10:49 11/05/19 17 11/04/2016 lipid panel w/ direc t LDL, serum LDL direct 110 mg/dL <=100 high Not Available [facility] (Lab) [address] [place], [address], 11/04/2016 20:10:49 11/05/19 17 11/04/2016 lipid panel w/ direc t LDL, serum cholhdl 3.10 mg/dL 0.00-4 .98 Not Available [facility] (Lab) [address], [place], [address], 11/04/2016 20:10:49 11/05/19 17 11/05/2016 HbA1c (hemo globi n A1c), blood hemoglobin A1C 6.6 % 4.8-5. 6 high . Pre-d iabet es: 5.7 - 6.4 Diabe linda: >6.4 Glyce mavis contr ol for adult s with diabe linda: <7.0 Not Available [facility] (Lab) [address], [place], [address], 11/05/2016 06:16:52 10/31/19 18 10/30/2017 CBC w/ auto diff WBC 6.4 K/uL 3.4-10 .8 Not Available [facility] (Lab) [address], [place], [address], 10/30/2017 19:21:28 10/31/19 18 10/30/2017 CBC w/ auto diff red blood count 3.8 M/uL 4.2-5. 4 low Not Available [facility] (Lab) [address] [place], [address], 10/30/2017 19:21:28 10/31/19 18 10/30/2017 CBC w/ auto diff hemoglobin 11.6 g/dL 11.5-1 5.5 Not Available [facility] (Lab) [address] [place], [address], 10/30/2017 19:21:28 10/31/19 18 10/30/2017 CBC w/ auto diff hematocrit 35.4 % 36.0-4 8.0 low Not Available [facility] (Lab) [address] [place], [address], 10/30/2017 19:21:28 10/31/19 18 10/30/2017 CBC w/ auto diff MCV 94 fL 80-95 Not Available [facility] (Lab) [address] [place], [address], 10/30/2017 19:21:28 10/31/19 18 10/30/2017 CBC w/ auto diff MCH 31 pg 27-32 Not Available [facility] (Lab) [address] [place], [address], 10/30/2017 19:21:28 10/31/19 18 10/30/2017 CBC w/ auto diff MCHC 33 g/dL 32-36 Not Available [facility] (Lab) [address] [place], [address], 10/30/2017 19:21:28 10/31/19 18 10/30/2017 CBC w/ auto diff platelets 310 K/uL 155-37 9 Not Available [facility] (Lab) [address] [facility], [place], [address], 10/30/2017 19:21:28 10/31/19 18 10/30/2017 CBC w/ auto diff RDW 12.6 % 11.5-1 4.5 Not Available [facility] (Lab) [address] [facility], [place], [address], 10/30/2017 19:21:28 10/31/19 18 10/30/2017 CBC w/ auto diff MPV 10.7 fL 8.9-12 .7 Not Available [facility] (Lab) [address] [place], [address], 10/30/2017 19:21:28 10/31/19 18 10/30/2017 CBC w/ auto diff neutrophils absolute 2.2 K/uL 1.4-7. 0 Not Available [facility] (Lab) [address] [place], [address], 10/30/2017 19:21:28 10/31/19 18 10/30/2017 CBC w/ auto diff lymphs (absolute) 3.3 K/uL 0.7-3. 1 high Not Available [facility] (Lab) [address] [place], [address], 10/30/2017 19:21:28 10/31/19 18 10/30/2017 CBC w/ auto diff monocytes (absolute) 0.5 K/uL 0.1-0. 9 Not Available [facility] (Lab) [address] [place], [address], 10/30/2017 19:21:28 10/31/19 18 10/30/2017 CBC w/ auto diff eos (absolute) 0.4 K/uL 0.0-0. 4 Not Available [facility] (Lab) [address] [facility], [place], [address], 10/30/2017 19:21:28 10/31/19 18 10/30/2017 CBC w/ auto diff baso (absolute) 0.0 K/uL 0.1-0. 3 low Not Available [facility] (Lab) [address] [facility], [place], [address], 10/30/2017 19:21:28 10/31/19 18 10/30/2017 CBC w/ auto diff neut % 34.0 % 40.0-7 4.0 low Not Available [facility] (Lab) [address] [place], [address], 10/30/2017 19:21:28 10/31/19 18 10/30/2017 CBC w/ auto diff lymphs % 52.1 % 14.0-4 6.0 high Not Available [facility] (Lab) [address] [place], [address], 10/30/2017 19:21:28 10/31/19 18 10/30/2017 CBC w/ auto diff mono % 7.1 % 4.0-12 .0 Not Available [facility] (Lab) [address] [place], [address], 10/30/2017 19:21:28 10/31/19 18 10/30/2017 CBC w/ auto diff eos % 6 % <=5 high Not Available [facility] ([facility]) [address], [place], [address], 10/30/2017 19:21:28 10/31/19 18 10/30/2017 CBC w/ auto diff baso % 0.3 % 0.1-1. 1 Not Available [facility] (Lab) [address], [place], [address], 10/30/2017 19:21:28 10/31/19 18 10/30/2017 lipid panel w/ direc t LDL, serum cholestrol 165.0 mg/dL 140.0- 200.0 Not Available [facility] (Lab) [address], [place], [address], 10/30/2017 19:42:01 10/31/19 18 10/30/2017 lipid panel w/ direc t LDL, serum triglyceride s 139 mg/dL <=150 Not Available [facility] ([facility]) [address], [place], [address], 10/30/2017 19:42:01 10/31/19 18 10/30/2017 lipid panel w/ direc t LDL, serum HDL cholesterol 50.0 mg/dL 40.0-1 00.0 Not Available [facility] (Lab) [address], [place], [address], 10/30/2017 19:42:01 10/31/19 18 10/30/2017 lipid panel w/ direc t LDL, serum LDL direct 107 mg/dL <=100 high Not Available [facility] ([facility]) [address], [place], [address], 10/30/2017 19:42:01 10/31/19 18 10/30/2017 lipid panel w/ direc t LDL, serum cholhdl 3.30 mg/dL 0.00-4 .98 Not Available [facility] (Lab) [address] [place], [address], 10/30/2017 19:42:01 10/31/19 18 10/30/2017 CMP, serum or plasm a glucose, serum 90 mg/dL 65-99 Not Available [facility] (Lab) [address], [place], [address], 10/30/2017 19:42:06 10/31/19 18 10/30/2017 CMP, serum or plasm a BUN 8 mg/dL 8-26 Not Available [facility] (Lab) [address], [place], [address], 10/30/2017 19:42:06 10/31/19 18 10/30/2017 CMP, serum or plasm a creatinine, serum 0.70 mg/dL 0.50-1 .40 Not Available [facility] (Lab) [address], [place], [address], 10/30/2017 19:42:06 10/31/19 18 10/30/2017 CMP, serum or plasm a BUN/creatnin e ratio 11.4 Not Available [facility] (Lab) [address], [place], [address], 10/30/2017 19:42:06 10/31/19 18 10/30/2017 CMP, serum or plasm a sodium, serum 139.0 mEq/L 136.0- 144.0 Not Available [facility] (Lab) [address], [place], [address], 10/30/2017 19:42:06 10/31/19 18 10/30/2017 CMP, serum or plasm a potassium, serum 4.6 mmol/ L 3.5-5. 3 Not Available [facility] (Lab) [address], [place], [address], 10/30/2017 19:42:06 10/31/19 18 10/30/2017 CMP, serum or plasm a chloride, serum 102 mmol/ l 101-11 1 Not Available [facility] (Lab) [address] [place], [address], 10/30/2017 19:42:06 10/31/19 18 10/30/2017 CMP, serum or plasm a carbon dioxide total 25.9 mmol/ L 21.0-3 2.0 Not Available [facility] (Lab) [address], [place], [address], 10/30/2017 19:42:10/31/19 18 10/30/2017 CMP, serum or plasm a aniongp 16.0 mmol/ L Not Available [facility] (Lab) [address], [place], [address], 10/30/2017 19:42:10/31/19 18 10/30/2017 CMP, serum or plasm a calcium, serum 10.1 mg/dL 8.2-10 .0 high Not Available [facility] (Lab) [address], [place], [address], 10/30/2017 19:42:10/31/19 18 10/30/2017 CMP, serum or plasm a total protein 8.0 g/dL 6.7-8. 2 Not Available [facility] (Lab) [address], [place], [address], 10/30/2017 19:42:10/31/19 18 10/30/2017 CMP, serum or plasm a albumin, serum 4.5 g/dL 3.5-5. 5 Not Available [facility] (Lab) [address] [place], [address], 10/30/2017 19:42:10/31/19 18 10/30/2017 CMP, serum or plasm a agratio 1.3 Not Available [facility] (Lab) [address] [place], [address], 10/30/2017 19:42:10/31/19 18 10/30/2017 CMP, serum or plasm a bilt 0.3 mg/dL 0.2-1. 0 Not Available [facility] (Lab) [address] [place], [address], 10/30/2017 19:42:06 10/31/19 18 10/30/2017 CMP, serum or plasm a AST 21.0 U/L 10.0-4 2.0 Not Available [facility] (Lab) [address] [place], [address], 10/30/2017 19:42:06 10/31/19 18 10/30/2017 CMP, serum or plasm a ALT 23.0 U/L 10.0-6 0.0 Not Available [facility] (Lab) [address] [place], [address], 10/30/2017 19:42:06 10/31/19 18 10/30/2017 CMP, serum or plasm a alk phos 87.0 IU/L 42.0-1 21.0 Not Available [facility] (Lab) [address] [place], [address], 10/30/2017 19:42:06 10/31/19 18 10/30/2017 CMP, serum or plasm a osmol 275.0 mOsm/ L 275.0- 301.0 Not Available [facility] (Lab) [address] [place], [address], 10/30/2017 19:42:06 10/31/19 18 10/30/2017 CMP, serum or plasm a eGFR, AM 120 m/lmi n/1.7 3_m >=60 Not Available [facility] (Lab) [address] [place], [address], 10/30/2017 19:42:06 10/31/19 18 10/30/2017 CMP, serum or plasm a eGFR, non- AM 99 mL/mi n/1.7 3/m >=60 Not Available [facility] (Lab) [address] [place], [address], 10/30/2017 19:42:06 10/31/19 18 10/30/2017 TSH, serum or plasm a TSH 2.25 uIU/m L 0.50-4 .50 Not Available [facility] (Lab) [address] [place], [address], 10/30/2017 20:06:36 10/31/19 18 10/31/2017 HbA1c (hemo globi n A1c), blood hemoglobin A1C 5.9 % 4.8-5. 6 high . Pre-d iabet es: 5.7 - 6.4 Diabe linda: >6.4 Glyce mavis contr ol for adult s with diabe linda: <7.0 Not Available [facility] (Lab) [address] [facility], [place], [address], 10/31/2017 07:10:00 10/31/19 18 10/31/2017 T4, total , serum thyroxine T4 6.8 ug/dL 4.5-12 .0 Not Available [facility] (Lab) [address] [facility], [place], [address], 10/31/2017 10:11:05 11/22/19 17 11/19/2016 imagi ng/di agnos tic resul t No observ ation record ed. [facility] (Imaging) [address], [place], [address], 01/31/2017 15:40:59 12/07/19 17 imagi ng/di agnos tic resul t No observ ation record ed. [facility] Not Available 2016 15:40:59 02/26/20 18 02/25/2018 CT, abdom en + pelvi s, w/ contr ast No observ ation record ed. [facility] Not Available 2017 13:14:24 Result Notes None recorded. Problems Name Problem SNOMED Code Status Onset Date Resolution Date Notes Provider Name and Address Organization Details Recorded Time Essential hypertension 47405311 Active Farhad Fuchs MD Attn: Louie beckwith,[address] [place], [address], [facility] 6 17:37:32 Low back pain 888342533 Active Farhad Fuchs MD Attn: Louie beckwith,[address] [facility], [place], [address], [facility] 6 17:37:32 Macromastia 923344280 Active Farhad Fuchs MD Attn: Louie beckwith,[address] [facility], [place], [address], [facility] 6 17:37:32 Obesity 283426590 Active 2016 Carson Benavides MD Attn: Louie beckwith[address] [facility], [place], [address], [facility] 7 14:52:44 Hyperglycemia 90846149 Active 2016 Carson Benavides MD Attn: Louie beckwith,[address] [facility], [place], [address], [facility] 7 15:44:21 Problem Notes None recorded. Medical Equipment None Reported. [...] Not Avai lable Vitals Date Recorded Body weight Body height Body mass index (BMI) Heart rate Respiratory rate Body temperature Systolic And Diastolic Provider Name and Address Organization Details Last Updated DateTime 7 86935.0 7 g 157.48 cm 36.8 kg/m2 76 /min 20 /min 98 [degF] 140/100 mm[Hg] José Miguel Rosen MA [facility] 7 14:38:39 Date Recorded Body height Body weight Body mass index (BMI) Heart rate Respiratory rate Systolic And Diastolic Provider Name and Address Organization Details Last Updated DateTime 7 157.48 cm 83610.4 7 g 36.6 kg/m2 80 /min 24 /min 130/100 mm[Hg] José Miguel Rosen MA [facility] 7 17:19:17 Date Recorded Body height Body mass index (BMI) Body weight Heart rate Respiratory rate Body temperature Systolic And Diastolic Provider Name and Address Organization Details Last Updated DateTime 7 157.48 cm 35.5 kg/m2 94970.9 2 g 76 /min 20 /min 98.1 [degF] 120/88 mm[Hg] José Miguel Rosen MA [facility] 7 12:22:51 Date Recorded Body height Body mass index (BMI) Body weight Heart rate Respiratory rate Body temperature Systolic And Diastolic Provider Name and Address Organization Details Last Updated DateTime 8 157.48 cm 34.4 kg/m2 24437.3 7 g 76 /min 20 /min 98.5 [degF] 110/88 mm[Hg] José Miguel Rosen MA [facility] 8 10:37:37 Date Recorded Body height Body mass index (BMI) Body weight Heart rate Respiratory rate Body temperature Systolic And Diastolic Provider Name and Address Organization Details Last Updated DateTime 7 157.48 cm 35.8 kg/m2 13281.1 g 76 /min 20 /min 98.3 [degF] 130/100 mm[Hg] José Miguel Rosen MA [place] [facility] 7 15:31:42 Social History None recorded. Functional Status None recorded. Mental Status None recorded. Family History Nothing Reported. Medical History No medical history recorded. Gynecological HistoryNo gynecological history recorded. Obstetrics History GPAL:G 0 P 0 0 0 0 Past Encounters Encounter ID Performer Location Encounter Start Date Encounter Closed Date Diagnosis/Indication Diagnosis SNOMED-CT Code Diagnosis ICD10 Code Diagnosis Note [id number] Farhad Fuchs MD [facility] (Adult/Fa m Med) [address] [place], [place] [address] 07/24/2014 13:56:05 07/24/2014 17:56:19 Essential hypertension 17750531 Low back pain 521811492 [id number] Farhad Fuchs MD [facility] (Adult/Fa m Med) [address] [place] [address] 9 02/02/2015 10:57:57 02/03/2015 10:59:32 Essential hypertension 92323674 I10 Low back pain 377059620 M54.5 [id number] Farhad Fuchs MD [facility] (Adult/Fa m Med) [address] [place] [address] 9 02/11/2015 15:18:29 02/11/2015 18:05:07 Essential hypertension 54357524 I10 Low back pain 298658610 M54.5 [id number] Farhad Fuchs MD [facility] (Adult/Fa m Med) [address] [place] [address] 9 03/30/2015 16:24:13 03/31/2015 16:59:15 Essential hypertension 58978055 I10 Low back pain 199477803 M54.5 [id number] Farhad Fuchs MD [facility] (Adult/Fa m Med) [address] [place] [address] 9 05/13/2015 15:36:43 05/15/2015 15:22:39 Essential hypertension 90289006 I10 Low back pain 109407715 M54.5 Macromastia 859592917 N6 2 [id number] Carson Benavides MD [facility] (Adult/Fa m Med) [address] [place] [address] 9 08/03/2016 14:25:28 08/04/2016 08:56:28 Low back pain 584619673 M54.5 continue meds. may needs MRIcan not take NSAIDs or Tramadol? Essential hypertension 52263577 I10 controlled Obesity 402126215 E66.9 diet/exerc ises. Hyperglycemia 78915876 R 73.9 on metformin but is reluctant to take it. asking for labs. [id number] Carson Benavides MD [facility] (Adult/Fa m Med) [address] [place] [address] 08/30/2016 16:10:24 08/31/2016 09:54:10 Obesity 194939066 E66.9 diet/exerc ises. Low back pain 455552444 M54.5 continue meds. prn Vicodin. Macromastia 689583523 N6 2 supposed to have reduction surgery in November Essential hypertension 30686335 I10 controlled Hyperglycemia 54552227 R 73.9 on metformin but is reluctant to take it.repeate d labs showed HgA1C 6.5--> restart metformin 500 mg po BID/ diet/exerc ises.had glucometer at home. Hyperlipidemia 11184966 E78.5 LDL 256 [id number] Carson Benavides MD [facility] (Adult/Fa m Med) [address] [place] [address] 11/04/2016 12:08:27 11/08/2016 09:55:49 Obesity 809730207 E66.9 diet/exerc ises. Low back pain 897441293 M54.5 continue meds. prn Vicodin. Essential hypertension 57223017 I10 controlled Macromastia 227228896 N6 2 supposed to have reduction surgery in November Hyperlipidemia 59730660 E78.5 LDL 198 Hyperglycemia 40605136 R 73.9 on metformin. repeat labs [id number] Carson Benavides MD [facility] (Adult/Fa m Med) [address] [place] [address] 01/31/2017 15:26:15 02/01/2017 16:03:17 Obesity 576171345 E66.9 diet/ exercises. Low back pain 344291029 M54.5 continue meds. Macromastia 057270831 N6 2 had reduction surgery Essential hypertension 66970967 I10 controlled Bronchitis 19635394 J40 OTC meds. Hyperglycemia 82506686 R 73.9 Hga1C 6.5--> 6.6on metformin. Hyperlipidemia 46637031 E78.5 LDL is better [id number] Carson Benavides MD [facility] (Adult/Fa m Med) [address] [place] [address] 11/08/2017 10:13:35 11/08/2017 13:55:10 Obesity 833842123 E66.9 diet/ exercises. Low back pain 525167298 M54.5 continue meds. Essential hypertension 37998617 I10 controlled Hyperlipidemia 17893467 E78.5 LDL is better Hyperglycemia 79091274 R 73.9 Hga1C 6.5--> 6.6 --> 5.9on metformin. 1/2 tab po bid Toothache 11964526 K08.8 9 Health Concerns Section Related Observation LastModified by Organization Detai ls LastModified Time None Recorded Concern Status LastModified by Organization Details LastModified Time None Recorded Advance Directives Directive None Recorded Payers Encounter Date Sequence Insurance Name Policy Number Policy Rivera Covered Member ID Rivera Member ID Guarantor Name 08/03/2016 1 [facility] (MEDICAID HMO) [id number] Roshonda L Dominguez [id number] Roshonda Marion 08/30/2016 1 [facility] (MEDICAID HMO) [id number] Roshonda L Dominguez [id number] Roshonda Marion 11/04/2016 1 [facility] (MEDICAID HMO) [id number] Roshonda L Dominguez [id number] Roshonda Estela 01/31/2017 1 [facility] (MEDICAID HMO) [id number] Roshonda L Dominguez [id number] Roshonda Estela 11/08/2017 1 [facility] (MEDICAID HMO) [id number] 0003 Roshonda L Dominguez [id number] Roshonda Marion Notes Date Note Type Note Provider Name and Address Organization Details Recorded Time 08/03/2016 text/html no complaints Carson Benavides MD Attn: Accounting,[address] [place], [address], [facility] 08/03/2016 15:03:27 08/30/2016 text/html left foot pain after trauma/ fractured toe Carson Benavides MD Attn: Accounting,[address] [facility], [place], [address], [facility] 08/31/2016 08:13:13 11/04/2016 text/html no new complaints Carson Benavides MD Attn: Accounting,[address] [place], [address], [facility] 11/04/2016 12:43:17 01/31/2017 text/html no new complaints Carson Benavides MD Attn: Accounting,[address] [facility], [place], [address], [facility] 01/31/2017 15:56:04 11/08/2017 text/html no new complaints Carson Benavides MD Attn: Accounting,[address] [place], [address], [facility] 11/08/2017 11:01:30 OBGyn Episode No OBEpisode recorded.
--- OUTSIDE RECORDS SUMMARY | 2024-09-09 05:38 | XMS_ITS | Clinical Summary ---
Author Organization [facility] Address [address] [place] [address] Phone Care Team Providers Care Certified Nutritionist Name Role Phone Provider, Unknown Primary Care Provider Unavaila ble Social History Tobacco Use Types Packs/Day Years Used Date Smoking Tobacco: Never Assessed Comments Unknown Sex and Gender Information Value Date Recorded Sex Assigned at Not on file Legal Sex Female 5:24 PM CDT Gender Identity Not on file Sexual Orientation Not on file Plan of Treatment Not on file Care Teams Certified Nutritionist Relationship Specialty Start Date End Date Provider, Unknown UNKNOWN PCP - General 10/12/16
--- OUTSIDE RECORDS SUMMARY | 2024-09-09 05:38 | XMS_ITS | Clinical Summary ---
Author Organization [facility] Address [address] [place] [address] Care Team Providers Care Form Setter Supervisor Name Role Phone Farhad Fuchs MD Primary Care Provider [phone] Source Comments [facility],non-owned Affiliates and Associated Physician Practices is amultiple site organization consisting of ambulatory clinics and hospital sitesin [place], [place], [place] and [place]. This disclosure is being madepursuant to the Care Everywhere program and may not contain all information available regarding this patient. Last updated 18.[facility] Allergies Active Allergy Reactions Criticality Noted Date Comments Lisinopril Swelling 03/09/2022 Medications * Be aware that medications may not be up to date on this document. Alwaysverify current medications with the patient. amLODIPine (Norvasc) 10 MG tablet 1 tablet 2 Active atorvastatin (Lipitor) 20 MG tablet 1 tablet 2 Active metoprolol tartrate IR (Lopressor) 100 MG [...] by mouth once daily 30 tablet 1 2 Active Active Problems Problem Noted Date Diagnosed [...] = 0.6 oz pur e alcohol) Comments No Sex and Gender Information Value Date Recorded Sex Assigned at Not on file Legal Sex Female 6:20 AM [employer] Gender Identity Not on file Sexual Orientation Not on file Last Filed Vital Signs Vital Sign Reading Time Taken Comments Blood Pressure 128/76 03/09/2022 10:42 AM [employer] Pulse 82 01/08/2016 7:54 AM CDT Temperature 36.6 C (97.8 F) 03/09/2022 10:42 AM [employer] Respiratory Rate 16 01/08/2016 7:54 AM CDT Oxygen Saturation 100% 01/08/2016 7:54 AM CDT Inhaled Oxygen Concentration - - Weight 85.1 kg (187 lb 9.6 oz) 03/09/2022 10:42 AM SUPER[employer] Height 157.5 cm (5' 2) 03/09/2022 10:42 AM SUPERVISOR [employer] Body Mass Index 34.31 03/09/2022 10:42 AM SUPERVISOR [employer] Plan of Treatment Health Maintenance Due Date [...] 01/08/2016, 01/07/2016, Additional history exists COVID-19 VACCINE (2023- season) 2023 DEPRESSION SCREENING 04/17/2024 INFLUENZA VACCINE (Season Ended) 2024 ZOSTER VACCINE (1 of 2) 12/17/2027 HIB VACCINE Aged Out No longer eligi ble based on patient's age to complete this topic HPV VACCINE Aged Out No longer eligi ble based on patient's age to complete this topic MENINGOCOCCAL (Group B) VACCINE SHARED DECISION-MAKING Aged Out No longer eligible based on patient's age to complete this topic MENINGOCOCCAL GROUPS A/C/Y/W VACCINE Aged Out No longer eligible based [...] PANEL (CALCIUM TOTAL) (01/08/2016 4:02 AM CDT) [facility] Glucose 95 74 - 106 mg/dL 01/08/2016 5:06 AM CDT [facility] Sodium 139 136 - 145 mmol/L 01/08/2016 5:06 AM CDT [facility] Potassium 3.8 3.5 - 5.1 mmol/L 01/08/2016 5:06 AM CDT [facility] Chloride 104 98 - 107 mmol/L 01/08/2016 5:06 AM CDT [facility] CO2 28 22 - 31 mmol/L 01/08/2016 5:06 AM CDT [facility] Calcium 8.9 8.5 - 10.1 mg/dL 01/08/2016 5:06 AM CDT [facility] Anion Gap 7 5 - 20 mmol/L 01/08/2016 5:06 AM CDT [facility] BUN 12 7 - 21 mg/dL 01/08/2016 5:06 AM CDT [facility] Creatinine 0.95 0.50 - 1.30 mg/dL 01/08/2016 5:06 AM CDT [facility] eGFR by MDRD >60 >60 mL/min/1.7 3m2 01/08/2016 5:06 AM CDT [facility] eGFR by MDRD >60 >60 mL/min/1.7 3m2 01/08/2016 5:06 AM CDT [facility] Blood BLOOD SPECIMEN / Unknown 01/08/2016 4:02 AM CDT 01/08/2016 4:35 AM CDT Michaela Winters MD LAB - CHEMISTRY ORDERABL ES Final Result [facility] [id number] [place] [address] from Last 3 Months or Most Recently Relevant to Health Maintenance Insurance [facility] MED[facility] - OUT OF STATE [facility] Advance Directives * Full Code (Latest Code Status on File) Date Activated Date Inactivated Comments 01/07/2016 7:16 PM 01/08/2016 12:15 PM * Full Code Date Activated Date Inactivated Comments 01/07/2016 3:44 PM 01/07/2016 7:16 PM Care Teams Form Setter Supervisor Relationship Specialty Start Date End Date Farhad Fuchs MD PCP - General 01/15/18
--- OUTSIDE RECORDS SUMMARY | 2024-09-09 05:38 | XMS_ITS | Clinical Summary ---
Author Organization [facility] Yessenia gilmore [address] Address [address] [place] [address] Care Team Providers Care Graphic Design Assistant Name Role Phone Unavailable Primary Care Provider [...] 325 mg (65 mg iron) tablet Take 1 Tablet (325 mg) by mouth 2 times daily. 90 Tablet 3 07/06/19 25 Active Active Problems Problem Noted Date Diagnosed Date Lymphocytosis 07/10/2019 Chronic anemia 07/10/2019 Encounters Date Type Department Care Team Description 07/05/2024 12:15 PM CDT Office Visit [facility] Oncology and Hematology - [address] [place] [address] Nils De Oliveira MD Chronic anemia (Primary Dx) 06/20/2024 Orders Only [facility] - [address] [place] [address] Nils De Oliveira MD 06/18/2024 Orders Only [facility] - [address] [place] [address] Nils De Oliveira MD 06/18/2024 Abstract [facility] [address] [address] [facility] [address] [place] [address] Nils De Oliveira MD from Last 3 Months Family History Medical [...] Sign Reading Time Taken Comments Blood Pressure 152/99 07/05/2024 12:13 PM CDT Pulse 91 07/05/2024 12:09 PM CDT Temperature 36.3 C (97.3 F) 07/05/2024 12:09 PM CDT Respiratory Rate 16 07/05/2024 12:09 PM CDT Oxygen Saturation 95% 07/05/2024 12:09 PM CDT Inhaled Oxygen Concentration - - Weight 89.5 kg (197 lb 6.4 oz) 07/05/2024 12:09 PM CDT Height 157.5 cm (5' 2) 03/19/2024 1:13 PM EARLY HEAD START TEACHER Body Mass Index 36.1 03/19/2024 1:13 PM EARLY HEAD START TEACHER Plan of Treatment Upcoming Encounters Date Type Department Care Team (Late st Contact Info) Description 01/07/2025 1:00 PM CDT Office Visit [facility]ology - [address] [place] [address] Nils De Oliveira MD [address] [facility] [employer] [address] [place] [address] Health Maintenance Due Date Last Done Comments DIABETES ANNUAL FOOT EXAM 12/17/1995 DIABETES ANNUAL RETINAL EXAM 12/17/1995 DIABETES MICROALBUMIN ANNUAL SCREEN 12/17/1995 LDL CHOLESTEROL ANNUAL 12/17/1995 DTAP/TDAP/TD VACCINES (1 - Tdap) 1996 HEPATITIS B VACCINES (1 of 3 - 19+ 3-dose series) 1996 FIT-DNA Q 3 years 2022 FIT/FOBT Q 1 year 2022 Flex Sig/CT Colonography Q 5 years 2022 INFLUENZA VACCINE (#1) 2023 COVID-19 Vaccine (3 - 2023-2 5 season) 2023 05/12/2021, 07/18/2020 DIABETES HBA1C Q 6 MONTHS 06/06/2024 12/05/2023 BREAST CANCER SCREENING 03/01/2025 03/01/20 24, 03/01/2024 COLORECTAL SCREENING 05/23/2034 05/23/2024 Colorectal Cancer Screening 05/23/2034 HPV VACCINES Aged Out No longer eligi ble based on patient's age to complete this topic Procedures Procedure Name Priority Date/Time Associated Diagnosis Comments BASIC METABOLIC PANEL Routine 06/18/2024 1:31 PM EARLY HEAD START TEACHER FLOW CYTOMETRY REPORT Routine 06/18/2024 10:55 AM EARLY HEAD START TEACHER from Last 3 Months Results * BASIC METABOLIC PANEL (06/18/2024 1:31 PM EARLY HEAD START TEACHER) Blood us Nils De Oliveira MD CHEMISTRY ORDERABLES Final Resu lt * FLOW CYTOMETRY REPORT (06/18/2024 10:55 AM EARLY HEAD START TEACHER) us Nils De Oliveiar MD PATHOLOGY/CYTOLOGY ORDERABLES F inal Result from Last 3 Months Insurance [address] [address] [employer] [id number]
--- NOTE | 2024-09-09 05:43 | ECG_ITS ---
Test Date: 2024-09-09 05:47:21 Measurements Intervals [place] Rate: 101 P: 60 TN: 150 QRS: 36 QRSD: 100 T: 5 QT: 349 QTc: 454 Interpretive Statements SINUS TACHYCARDIA NONSPECIFIC T-WAVE ABNORMALITY ABNORMAL RHYTHM ECG Compared to ECG 11/05/2023 05:57:28 T-wave abnormality now present Sinus rhythm no longer present Electronically Signed On 09-09-2024 15:01:53 CDT by Josesito Fletcher M.D.
[2024-09-09 06:18] LABS: Basophils Percent Auto 0.4 % (0.2-1.2); Eosinophils Absolute Auto 0.3 K/mm3 (0-0.3); Eosinophils Percent Auto 4.4 % (0-4.4); Hematocrit 35.8 % (37.0-47.0); Hemoglobin 11.4 g/dL (12.0-15.0); Immature Granulocyte Absolute 0.01 K/mm3 (0.00-0.031); Immature Granulocyte Percent A 0.1 % (0-0.5); Lymphocytes Absolute Auto 4.36 K/mm3 (0.9-3.2); Lymphocytes Percent Auto 55.9 % (18.3-44.2); Mean Corpuscular HGB Conc 31.8 g/dl (32-36); Mean Corpuscular Hemoglobin 29.7 pg (26-34); Mean Corpuscular Volume 93.2 fl (80-100); Mean Platelet Volume 9.3 fl (7.4-10.4); Monocytes Absolute Auto 0.6 K/mm3 (0.1-0.6); Monocytes Percent Auto 8.1 % (2.6-8.5); Neutrophils Absolute Auto 2.4 K/mm3 (1.3-6.7); Neutrophils Percent Auto 31.1 % (45.5-73.1); Platelet Count Result 330 k/mm3 (150-375); Red Blood Count 3.84 M/mm3 (4.2-5.4); Red Cell Distribution Width 12.8 % (11.5-14.5); White Blood Count 7.8 K/mm3 (4.5-10.0)
[2024-09-09 06:24] LABS: Alanine Aminotransferase 44 U/L (6-35); Albumin Level 4.7 g/dL (3.5-5.1); Alkaline Phosphatase 103 U/L (38-126); Anion Gap 9 mmol/L (4-12); Aspartate Amino Transferase 39 U/L (14-36); Bilirubin,Total 0.3 mg/dL (0.2-1.3); Blood Urea Nitrogen 8 mg/dL (7-17); Calcium 9.5 mg/dL (8.4-10.2); Carbon Dioxide 26 mmol/L (22-30); Chloride 103 mmol/L (98-107); Estimated CRCL calculation 88 ml/min; Estimated Glomerular Filt Rate > 60; Glucose 121 mg/dL (65-110); Lipase 76 U/L (23-300); Potassium 3.9 mmol/L (3.4-5.0); Sodium 138 mmol/L (137-145)
[2024-09-09 06:33] LABS: Add Urine Microscopic? NO; Appearance Urine Clear (Clear); Bilirubin Urine Negative (Negative); Blood Urine Negative (Negative); Color Urine Yellow (Yellow); Glucose Urine UA Negative (Negative); Ketones Urine Negative (Negative); Leukocyte Esterase Ur Negative LEU/UL (Negative); Nitrate Urine Negative (Negative); Protein Urine Negative (Negative); Specific Grav Ur 1.005 (1.001-1.035); Urobilinogen Urine 0.2 mg/dL (<2.0)
[2024-09-09 06:35] LABS: Partial Thromboplastin Time 26.6 Seconds (22.3-36.8); Prothrombin Time 13.9 Seconds (11.1-14.7)
[2024-09-09 06:36] LABS: Troponin I < 0.012 ng/mL (0.000-0.034)
--- OUTSIDE RECORDS SUMMARY | 2024-09-09 07:36 | XMS_ITS | Clinical Summary ---
Author Organization [facility] Yessenia gilmore [address]ay[address] Address [address] [place] [address] Care Team Providers Care Performance Engineer Name Role Phone Unavailable Primary Care Provider [...] Description 07/05/2024 12:15 PM CDT Office Visit [facility] Oncology and Hematology - [address] [place] [address] Nils De Oliveira MD Chronic anemia (Primary Dx) 06/20/2024 Orders Only [facility] Oncology [facility]ematology - [address] [place] [address] Nils De Oliveira MD 06/18/2024 Orders Only [facility] Oncology [facility] Hematology - [address] [place] [address] Nils De Oliveira MD 06/18/2024 Abstract [facility] [address] [facility] [address] [place] [address] Nils De Oliveira MD from [...] 157.5 cm (5' 2) 03/19/2024 1:13 PM SENIOR MANAGER QUALITY ASSURANCE Body Mass Index 36.1 03/19/2024 1:13 PM SENIOR MANAGER QUALITY ASSURANCE Plan of Treatment Upcoming Encounters Date Type Department Care Team (Late st Contact Info) Description 01/07/2025 1:00 PM CDT Office Visit [facility] Oncology and Hematology - [address] [place] [address] Nils De Oliveira MD [address] [facility] [address] [place] [address] Health Maintenance Due Date Last [...] BASIC METABOLIC PANEL Routine 06/18/2024 1:31 PM SENIOR MANAGER QUALITY ASSURANCE FLOW CYTOMETRY REPORT Routine 06/18/2024 10:55 AM SENIOR MANAGER QUALITY ASSURANCE from Last 3 Months Results * BASIC METABOLIC PANEL (06/18/2024 1:31 PM SENIOR MANAGER QUALITY ASSURANCE) Blood us Nils De Oliveira MD CHEMISTRY ORDERABLES Final Resu lt * FLOW CYTOMETRY REPORT (06/18/2024 10:55 AM SENIOR MANAGER QUALITY ASSURANCE) us Nils De Oliveira MD PATHOLOGY/CYTOLOGY ORDERABLES F inal Result from Last 3 Months Insurance [employer] [id number]
--- OUTSIDE RECORDS SUMMARY | 2024-09-09 07:36 | XMS_ITS | Clinical Summary ---
Author Organization [facility] Address [address] [place] [address] Phone Care Team Providers Care Tar Processing Technician Name Role Phone Provider, Unknown Primary Care Provider Unavaila ble Social History Tobacco Use Types Packs/Day Years Used Date Smoking Tobacco: Never Assessed Comments Unknown Sex and Gender Information Value Date Recorded Sex Assigned at Not on file Legal Sex Female 5:24 PM CDT Gender Identity Not on file Sexual Orientation Not on file Plan of Treatment Not on file Care Teams Tar Processing Technician Relationship Specialty Start Date End Date Provider, Unknown UNKNOWN PCP - General 10/12/16
--- OUTSIDE RECORDS SUMMARY | 2024-09-09 07:36 | XMS_ITS | Data Portability ---
Author Organization [facility] Address [address] [place] [address] Care Team Providers Care Ekg/Ecg Technician Name Role Phone LOBITOKEVANGABBY APODACA Primary Care Provider Assessment Encounter Date Assessment Date Assessment LastModified by Organization Details LastModified Time 08/29/2024 08/29/2024 Annual gynecological exam performed. Patient will come back in a year unless there are new symptoms. Not available 08/29/2024 10:43:25 Plan of Treatment Reminders Order Date Submit Date Provider Last Modified By Organization Details Last Modified Time Details Appointments None recorded. Lab pap, IG + HR HPV - HPV regardless but if HPV is positive need subtyping 16,18/45 2024 025 [facility] (Lab), [address], [place], [address], 5 16:19:39 urinalysis, dipstick 2023 024 [email or web address] [facility], [facility] [address], [place], [address], 4 09:48:09 Referral None recorded. Procedures None recorded. Surgeries None recorded. Imaging None recorded. Medication Orders fluconazole 150 mg tablet 2024 025 [facility][id number], [address], [place], [place], [id number], 5 11:07:52 fluconazole 150 mg tablet [address] [facility]05897, [address], [place], [place], [id number], 5 10:45:10 metronidazo le 500 mg tablet [address] [facility] #84176, [address], [place], [place], [id number], 5 10:45:23 nystatin-tr iamcinolone 100,000 unit/gram-0 .1 % topical ointment [address] [facility]34218, [address], [place], [place], [id number], 5 10:45:28 Valtrex 500 mg tablet 2022 023 [facility] #02423, [address], [place], [place], [id number], 3 16:48:31 Diflucan 200 mg tablet 2022 023 [email or web address] [facility] #82284, [address], [place], [place], [id number], 4 10:48:24 nystatin-tr iamcinolone 100,000 unit/gram-0 .1 % topical ointment [address] [facility] #10702, [address], [place], [place], [id number], 5 10:45:28 Diflucan 200 mg tablet 2022 024 [facility] #91893, [address], [place], [place], [id number], 4 10:49:06 Valtrex 1 gram tablet 2022 023 [email or web address] [facility] #54046, [address], [place], [place], [id number], 4 10:49:06 lidocaine HCl 2 % mucosal jelly 2022 024 [email or web address] [facility] #78228, [address], [place], [place], [id number], 4 10:48:54 Keflex 500 mg capsule 2022 023 [email or web address] [facility] #25223, [address], [place], [place], [id number], 5 10:45:04 Patient TargetsNo targets recorded. Patient InstructionsNo instructions recorded. Reason for Referral None Reported. Results Created Date Observation Date Name Description Value Unit Range Abnormal Flag Note LastModifiedBy Organization Detail LastModifiedTime 11/24/1911/23/2022 CT/GC AND TRICH OMONA S VAGIN BRANDAN (RRNA ), URINE chlamydia trachomatis, PCR Negati ve negati ve Not Available [facility] (Lab) [address], [place], [address], 11/24/2022 13:09:56 11/24/19 23 11/23/2022 CT/GC AND TRICH OMONA S VAGIN BRANDAN (RRNA ), URINE neisseria gonorrhoeae, PCR Negati ve negati ve Not Available [facility] (Lab) [address], [place], [address], 11/24/2022 13:09:56 11/24/19 23 11/23/2022 CT/GC AND TRICH OMONA S VAGIN BRANDAN (RRNA ), URINE trichomonas vaginalis ribosomal RNA (rrna) Negati ve negati ve Not Available [facility] (Lab) [address], [place], [address], 11/24/2022 13:09:56 06/09/19 24 06/09/2023 CT/GC AND TRICH OMONA S VAGIN BRANDAN (RRNA ), SWAB chlamydia trachomatis, PCR Negati ve negati ve Not Available [facility] (Lab) [address], [place], [address], 06/12/2023 12:12:40 06/09/19 24 06/09/2023 CT/GC AND TRICH OMONA S VAGIN BRANDAN (RRNA ), SWAB neisseria gonorrhoeae, PCR Negati ve negati ve Not Available [facility] (Lab) [address], [place], [address], 06/12/2023 12:12:40 06/09/19 24 06/09/2023 CT/GC AND TRICH OMONA S VAGIN BRANDAN (RRNA ), SWAB trichomonas vaginalis ribosomal RNA (rrna) Negati ve negati ve Not Available [facility] (Lab) [address], [place], [address], 06/12/2023 12:12:40 06/09/19 24 06/09/2023 VAGIN ITIS/ VAGIN OSIS, DNA PROBE connor sp. detection, direct probe Negati ve negati ve Not Available [facility] (Lab) [address], [place], [address], 06/12/2023 12:12:41 06/09/19 24 06/09/2023 VAGIN ITIS/ VAGIN OSIS, DNA PROBE gardnerella vag. detection, direct probe Positi ve negati ve abnormal Not Available [facility] (Lab) [address], [place], [address], 06/12/2023 12:12:41 06/09/19 24 06/09/2023 VAGIN ITIS/ VAGIN OSIS, DNA PROBE trichomonas vag. detection, direct probe Negati ve negati ve Not Available [facility] (Lab) [address], [place], [address], 06/12/2023 12:12:41 12/19/19 24 12/19/2023 CULTU RE: URINE result report SEE RESULT S BELOW Test: Cultu re: Urine Speci men Sourc e: Urine - Clean Catch Speci men Type: Urine Speci men Date: 1050 Resul t Date: 0458 Resul t Statu s: Final resul t Abnor mal: No Resul ting Lab: [facility] [address] [facility] [address] Tel: CULTU RE ----- ----- ----- --- No growt h in 1 day (dete ction level of 10,00 0 colon ies / ml.) Not Available [facility] (Lab) [address], [place], [address], 12/21/2023 06:03:57 12/19/19 24 12/19/2023 urina lysis , dipst ick Leukocytes Trace Not Available [facility] [address], [place], [address], 12/19/2023 09:47:12 12/19/19 24 12/19/2023 urina lysis , dipst ick Nitrite Negati ve Not Available [facility] [address], [place], [address], 12/19/2023 09:47:12 12/19/19 24 12/19/2023 urina lysis , dipst ick Urobilinogen Normal Not Available [facility] attila [address], [place], [address], 12/19/2023 09:47:12 12/19/19 24 12/19/2023 urina lysis , dipst ick Protein Negati ve Not Available [facility] [address], [place], [address], 12/19/2023 09:47:12 12/19/19 24 12/19/2023 urina lysis , dipst ick pH 5 Not Available [facility] [address], [place], [address], 12/19/2023 09:47:12 12/19/1912/19/2023 urina lysis , dipst ick Blood ++ Not Available [facility] [address], [place], [address], 12/19/2023 09:47:12 12/19/1912/19/2023 urina lysis , dipst ick Specific [place] 1.030 Not Available [facility] [address], [place], [address], 12/19/2023 09:47:12 12/19/1912/19/2023 urina lysis , dipst ick Ketone Negati ve Not Available [facility] [address], [place], [address], 12/19/2023 09:47:12 12/19/1912/19/2023 urina lysis , dipst ick Bilirubin Negati ve Not Available [facility] [address], [place], [address], 12/19/2023 09:47:12 12/19/1912/19/2023 urina lysis , dipst ick Glucose Normal Not Available [facility] [address], [place], [address], 12/19/2023 09:47:12 12/19/1912/19/2023 urina lysis , dipst ick Color Dark Yellow Not Available [facility] [address], [place], [address], 12/19/2023 09:47:12 Result Notes None recorded. Problems Name Problem SNOMED Code Status Onset Date Resolution Date Notes Provider Name and Address Organization Details Recorded Time Acute vaginiti s 79928721 Completed 201601/14/2021 Acute vulvovagi nitis;Rec orded Elsewhere : No Locati on: [facility] So urce: EHR Chron ic: N Practic e ID: 0001 Bill able Time: 01:00:00 PM Ashley Hunter [facility] 14:24:12 Pelvic and perineal pain [id number] Completed 201701/14/2021 Pelvic and perineal pain;Kal rded Elsewhere : No Locati on: [facility] So urce: EHR Chron ic: N Practic e ID: 0001 Bill able Time: 11:30:00 AM Ashley Hunter [facility] 14:24:23 Vaginola bial hernia Completed 201701/14/2021 Other specified noninflam matory disorders of vagina;Re corded Elsewhere : No Locati on: [facility] So urce: EHR Chron ic: N Practic e ID: 0001 Bill able Time: 11:30:00 AM Ashley Hunter [facility] 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 14:24:26 Syphilis test finding [id number] Completed 201701/14/2021 Encntr screen for infection s w sexl mode of transmiss ;Recorded Elsewhere : No Locati on: [facility] So urce: EHR Chron ic: N Practic e ID: 0001 Bill able Time: 11:30:00 AM Ashley Hunter [facility] 14:24:[address] Concept Completed 201601/14/2021 Encntr for general adult medical exam w/o abnormal findings; Recorded Elsewhere : No Locati on: [facility] So urce: EHR Chron ic: N Practic e ID: 0001 Bill able Time: 02:30:00 PM Ashley Hunter [facility] 14:24:24 Itching [id number] Completed 201601/14/2021 Pruritus, unspecifi ed;Record ed Elsewhere : No Locati on: [facility] So urce: EHR Chron ic: N Practic e ID: 0001 Bill able Time: 10:30:00 AM Ashley Hunter [facility] 14:24:21 Connor infectio n of genital region Completed 201801/14/2021 Candidal vulvovagi nitis;Rec orded Elsewhere : No Locati on: [facility] So urce: EHR Chron ic: N Practic e ID: 0001 Bill able Time: 04:00:00 PM Ashley Hunter [facility] 14:24:15 Infectio n screenin g Completed 201701/14/2021 Encounter for screening for oth infec/par astc diseases; Recorded Elsewhere : No Locati on: [facility] So urce: EHR Chron ic: N Practic e ID: 0001 Bill able Time: 11:30:00 AM Ashley Hunter [facility] 14:24:20 Hyperten sive disorder [id number] Completed 201501/14/2021 Essential (primary) hypertens ion;Recor ded Elsewhere : No Locati on: [facility] So urce: EHR Chron ic: N Practic e ID: 0001 Bill able Time: 01:45:00 PM Ashley Hunter [facility] 14:24:18 Body mass index 30+ - obesity 180214679 Completed 201501/14/2021 Body mass index (BMI) 36.0-36.9 , adult;Rec orded Elsewhere : No Locati on: [facility] So urce: EHR Chron ic: N Practic e ID: 0001 Bill able Time: 01:45:00 PM Ashley Hunter [facility] 14:24:13 Dysuria [id number] Completed 201601/14/2021 Dysuria;P ractice ID: [id number] Ashley Hunter [facility] 14:24:17 Problem Notes None recorded. Procedures Surgical History Date Name Laterality Status Provider Name and Address Organization Details Recorded Time 08/28/19 25 Date of Last Mammogram completed [facility] 08/29/2024 10:47:15 04/22/19 25 colonoscopy completed [facility] 08/29/2024 10:51:38 03/01/20 24 biopsy of breast completed [facility] 08/29/2024 10:52:59 01/15/20 21 Date of Last Pap Smear completed [facility] 02/11/2022 16:06:59 04/17/19 17 Breast reduction completed [facility] 01/14/2021 14:57:49 04/17/19 14 Partial Hysterectomy completed [facility] 11/09/2020 09:42:54 Imaging Results None recorded. Procedure Notes None recorded. Medical Equipment None Reported. Allergies No known drug allergies Medications Name Sig Start Date Stop Date Status Note LastModified by Organization Details LastModified Time atorvasta tin 40 mg tablet take 1 tablet by oral route every day 01/14 completed Prescrib ed Elsewher e: Yes Loca tion: [facility] M odify By: [email or web address] Encount er DateTime : 04/20/19 19 04:00:00 PM Not Available Not Available Not Available metformin 500 mg tablet TAKE 1 TABLET BY MOUTH TWICE DAILY active Not Available Not Available No t Available terconazo le 0.4 % vaginal cream insert 1 applicat orful by vaginal route every day for 7 days at bedtime 04/26 completed Prescrib ed Elsewher e: No Locat ion: [facility] odify By: karina bolden DateTime : 04/20/19 19 04:00:00 PM Not Available Not Available Not Available atorvasta tin 20 mg tablet TAKE 1 TABLET BY MOUTH EVERY DAY active Not Available Not Available No t Available azithromy alba 250 mg tablet TAKE 2 TABLETS BY MOUTH FOR 1 DAY THEN TAKE 1 TABLET BY MOUTH DAILY FOR 4 DAYS 08/29 completed Not Available Not Available Not Available metoprolo l tartrate 100 mg tablet TAKE 1 TABLET BY MOUTH DAILY active Not Available Not Available No t Available fluconazo le 150 mg tablet take 1 tablet by mouth now, repeat in 7 days if needed 2024 active Not Available Not Available Not Avai lable benzonata te 200 mg capsule TAKE ONE CAPSULE BY MOUTH THREE TIMES DAILY NEEDED 08/29 completed Not Available Not Available Not Available valacyclo vir 1 gram tablet TAKE 1 TABLET BY MOUTH EVERY DAY WITH MEALS FOR 5 DAYS 06/09 completed Not Available Not Available Not Available hydrocodo ne 5 mg-acetam inophen 325 mg tablet TAKE 1 TABLET BY MOUTH EVERY 12 HOURS NEEDED FOR PAIN 08/29 completed Not Available Not Available Not Available phenazopy ridine 200 mg tablet TAKE 1 TABLET BY MOUTH THREE TIMES DAILY NEEDED 11/23 completed Not Available Not Available Not Available ondansetr on HCl 4 mg tablet 11/23 completed Not Available Not Available Not Available prednison e 20 mg tablet TAKE 2 TABLETS BY MOUTH DAILY WITH FOOD FOR 5 DAYS. DO NOT TAKE WITH ASPIRIN OR NSAIDS SUCH ALEVE OR IBUPROFE N ETC 08/29 completed Not Available Not Available Not Available terconazo le 0.8 % vaginal cream INSERT ONE APPLICAT ORFUL VAGINALL Y AT BEDTIME X 3 DAYS 11/23 completed Not Available Not Available Not Available metronida zole 500 mg tablet TAKE 1 TABLET BY MOUTH TWICE DAILY FOR 7 DAYS 08/29 completed Not Available Not Available Not Available lidocaine HCl 2 % mucosal jelly Apply to affected area topicall y for pain relief PRN q4hrs 06/09 completed Not Available Not Available Not Available acetamino phen 300 mg-codein e 30 mg tablet TAKE 1 TABLET BY MOUTH EVERY 6 HOURS NEEDED 08/29 completed Not Available Not Available Not Available amlodipin e 5 mg tablet 02/11 completed Not Available Not Available Not Available valacyclo vir 500 mg tablet TAKE 1 TABLET BY MOUTH EVERY DAY active Not Available Not Available No t Available tramadol 50 mg tablet TAKE 1 TABLET BY MOUTH EVERY 8 HOURS NEEDED FOR PAIN 08/29 completed Not Available Not Available Not Available ondansetr on 8 mg disintegr ating tablet 07/29 completed Not Available Not Available Not Available nystatin- triamcino lone 100,000 unit/gram -0.1 % topical ointment APPLY TOPICALL Y TO THE AFFECTED AREA TWICE DAILY FOR 5 DAYS 08/29 completed Not Available Not Available Not Available Miconazol e-7 2 % vaginal cream insert 1 applicat orful by vaginal route every day at bedtime 06/03 completed Prescrib ed Elsewher e: No Locat ion: [facility] odify By: nhung bolden DateTime : 09/04/19 [...] Prescrib ed Elsewher e: No Locat ion: [facility] odify By: mike prasad DateTime : 09/04/19 19 01:16:23 PM Not Available Not Available Not [...] t Available benzonata te 100 mg capsule TAKE 2 CAPSULES BY MOUTH EVERY 8 HOURS NEEDED 08/29 completed Not Available Not Available Not Available hydrocodo ne 7.5 mg-acetam inophen 325 mg tablet 11/23 completed Not Available Not Available Not Available cephalexi n 500 mg capsule TAKE 1 CAPSULE BY MOUTH TWICE DAILY WITH MEALS FOR 7 DAYS 08/29 completed Not Available Not Available Not Available oseltamiv ir 75 mg capsule TAKE 1 CAPSULE BY MOUTH EVERY DAY FOR 7 DAYS 08/29 completed Not Available Not Available Not Available [...] completed Not Available Not Available Not Available gabapenti n 100 mg capsule 08/29 completed Not Available Not Available Not Available azelastin [...] aerosol inhaler INHALE 2 PUFFS BY MOUTH FOUR TIMES DAILY active Not Available Not Available No t Available ketoconaz ole 2 % topical cream apply by topical route every day to the affected area(s) 04/20 completed Prescrib jame Sinclair e: No Locat ion: [facility] odify By: [email or web address] Encount er DateTime : 02/09/20 17 01:00:00 PM Not Available Not Available Not Available fluticaso ne propionat e 50 mcg/actua tion nasal spray,parker pension 11/23 completed Not Available Not Available Not Available metformin ER 500 mg tablet,ex tended release 24 hr take 2 tablet by oral route every day with the evening meal 02/11 completed Prescrib ed Elsewher e: Yes Loca tion: [facility] odify By: ron prasad DateTime : 10/24/19 [...] ed Elsewher e: Yes Loca tion: [facility] odify By: elizabeth aburto Encoun ter DateTime [...] Prescrib ed Elsewher e: Yes Loca tion: [facility] odify By: elizabeth Merrill ter DateTime : 10/30/19 16 01:45:00 PM Not Available Not Available Not Available nitrofura ntoin monohydra te/macroc rystals 100 mg capsule TAKE 1 CAPSULE BY MOUTH EVERY 12 HOURS WITH MEALS FOR 7 DAYS 08/29 completed Not Available Not Available Not Available [place] [facility] Sinus 2.65 % nasal spray aerosol INSTILL 2 SPRAYS IN EACH NOSTRIL THREE TIMES DAILY 08/29 completed Not Available Not Available Not Available cholecalc iferol (vitamin D3) 1,250 mcg (50,000 unit) capsule 01/14 completed Not Available Not Available Not Available FeroSul 325 mg (65 mg iron) tablet TAKE 1 TABLET BY MOUTH TWICE DAILY active Not Available Not Available No t Available cholecalc iferol (vitamin D3) 50 mcg (2,000 unit) tablet TAKE 1 TABLET BY MOUTH DAILY active Not Available Not Available No t Available lidocaine 2 % mucosal jelly in [...] Ozempic 0.25 mg or 0.5 mg (2 mg/3 mL) subcutane ous pen injector INJECT 0.25 MG UNDER THE SKIN EVERY WEEK 08/29 completed Not Available Not Available Not Available Vitals Date Recorded Body height Body mass index (BMI) Body weight Systolic And Diastolic Provider Name and Address Organization Details Last Updated DateTime 06/09/2023 158.75 cm 34.2 kg/m2 63671.55 g 136/86 mm[Hg] Sommer Koehler [facility] 06/09/2023 10:48:05 Date Recorded Body height Body mass index (BMI) Body weight Systolic And Diastolic Provider Name and Address Organization Details Last Updated DateTime 08/29/2024 158.75 cm 35.8 kg/m2 47056.88 g 156/89 mm[Hg] Cata Lugo [facility] 08/29/2024 10:44:12 Date Recorded Body height Body mass index (BMI) Body weight Systolic And Diastolic Provider Name and Address Organization Details Last Updated DateTime 11/23/2022 158.75 cm 34.6 kg/m2 14035.74 g 137/84 mm[Hg] Nola Dimitri [facility] 11/23/2022 18:13:49 Date Recorded Body height Body mass index (BMI) Body weight Systolic And Diastolic Provider Name and Address Organization Details Last Updated DateTime 12/07/2022 158.75 cm 35.3 kg/m2 06710.1 g 128/79 mm[Hg] Ashley Fausto [facility] 12/07/2022 16:30:58 Social History Question Answer Notes LastModified by Organizat ion Details LastModified Time Tobacco Smoking Status Never Smoker [facility] 01/14/2021 14:27:15 Are You Blind Or Do You Have [...] Yes Information not available 01/14/2021 Do You Use Sunscreen Routinely? Yes Information not available 01/14/2021 Do You Have Difficulty Walking Or Climbing Stairs? No Information not available 07/29/2021 Sex: Unknown Functional Status Question Answer Note LastModified by Organizat ion Details LastModified Time Do you use any illicit or recreational drugs? No Information not available 01/14/2021 What is your level of alcohol consumption? Occasional Information not available 01/14/2021 Are you able to walk? YESWOREST Information not available 01/14/2021 Are you able to care for yourself? Yes Information n ot available 07/29/2021 Do you have difficulty dressing or bathing? No Information not available 07/29/2021 What is your exercise level? Moderate Information not available 01/14/2021 Mental Status Question Answer Note LastModified by Organization D etails LastModified Time Do you feel stressed (tense, restless, nervous, or anxious, or unable to sleep at night)? [id number] Information not available 01/14/2021 Family History Relationship Description Onset Age of this Age Resolved Age Notes LastModified by Organization Details LastModified Time Mother Diabetes mellitus Not available 2020 14:26:48 Mother Malignant tumor of colon Not available 2024 10:49:52 Notes:Mother: Diabetes gordo barakat Medical History Condition [...] History Statement/Question Response Date of Last Mammogram 08/27/2024 Date of LMP 08/24/2013 STIs/STDs Y HPV Vaccine N Current Control Method Hysterectom y Date of Last Colonoscopy Sexually Active? Y Menses Monthly N Date of DEXA bone scan Date of Last Pap Smear 01/14/2021 Sexual Problems? N Obstetrics History GPAL:G 5 P 4 0 0 4 Type Value Full Term 4 Living 4 Total 5 Past Encounters Encounter ID Performer Location Encounter Start Date Encounter Closed Date Diagnosis/Indication Diagnosis SNOMED-CT Code Diagnosis ICD10 Code Diagnosis Note [id number] Rhonda Alarcon , [facility] [address] [address] 01/14/2021 14:25:42 01/14/2021 16:34:13 Gynecologic examination 24238980 Z01.419 Suggested Calcium with Vitamin D 1200-1500m g daily. Patient advised to get an annual flu shot in the fall and she could obtain at [facility] or [facility] care clinic. Also to obtain TDap [...] std screenmamm o ordered Pain in pelvis 93755517 R10.2 Likely pain she is feeling is from left hip/pirifo rmis issues that are aggravatin g her lower back and sciatic nerve. However, some pain on left adnexal area so will ensure no issues & update TVUS.She is due to start PT next week for her back/sciat ic nerve pain.Heat/ ice/biofre elder [id number] Yosi Mercer MD [facility] [address],[place] [address] 07/05/2021 13:45:37 07/05/2021 14:56:52 Vaginitis 90969289 N76.0 this patient is a 45-year-ol d [...] antifungal . She will follow-up as needed. [id number] BRIEN Reynolds [facility] [address],[facility] [place] [address] 07/29/2021 16:12:28 07/29/2021 17:35:48 Venereal disease screening 723711383 Z11.3 Sexually t ransmitted infectious disease 7108791 A64 Urinary symptoms 8155354 08 R39.9 Acute urin swathi tract infection 360252667 N39.0 Urinary burning, pain, and frequency for [...] patient was 35 minutes. Pain in pelvis 59076849 R10.2 [id number] Yosi Mercer MD [facility] [address],[place] [address] 08/04/2021 18:01:45 08/04/2021 18:41:06 Pain in pelvis 42383367 R10.2 [id number] Dorys [facility] [address],[place] [address] 08/09/2021 10:02:37 08/09/2021 10:38:44 Pain in pelvis 96119771 R10.2 Blood in urine 71116197 R31.9 [id number] Rhonda Alarcon [facility] [facility] [address],[place] [address] 02/11/2022 15:52:12 02/11/2022 16:50:19 Urinary symptoms [id number] R39.9 Chronic in terstitial cystitis [id number] N30.10 Suspect CIC on exam, Hx & subjective complaints .Urine culture sent to r/o infection x of endometrio sis with hysterecto my [...] counseling and review of plan of care. [id number] Rhonda Alarcon [facility] [address],[place] [address] 11/23/2022 18:01:45 11/24/2022 16:40:09 Genital herpes simplex [id number] A60.9 Suspect HSV outbreakHx of HSV in the past but no outbreaks for a very long time.Rx sentDeclin ed need for std screen Counseled on medication R/B's, Most common side effects, & use. All questions were answered to patient satisfacti on. Labial cyst [id number] N9 0.7 We agreed to treat labial cyst today.Rx sentCounse led on medication R/B's, Most common side effects, & use. All questions were answered to patient satisfacti on. Return if any further issues or persists. Time spent in visit is a total of 20mins with at least 50% of visit consisting of counseling and review of plan of care. Vaginitis [id number] N76.0 Suspect yeast on examRx sent Counseled on medication R/B's, Most common side effects, & use. All questions were answered to patient satisfacti on. [id number] [facility] [address],[place] [address] 12/07/2022 16:10:48 12/07/2022 17:41:11 Genital herpes simplex [id number] A60.9 Wants to do suppressiv e therapy as previously discussed. Rx sent Counseled on medication R/B's, Most common side effects, & use. All questions were answered to patient satisfacti on. Time spent in visit is a total of 20 mins with at least 50% of visit consisting of counseling and review of plan of care. Vaginitis 35253140 N76.0 RF sent for PRN use [id number] BRIEN Reynolds [facility] [address],[place] [address] 06/09/2023 10:34:56 06/09/2023 11:43:31 Vaginitis [id number] N76.0 vaginitis/ STI panel sentsuspec t BV/yeastrx sent, r/b/a reviewedvu lvar care guidelines discussedR TC for WWE or sooner if needed Time spent in visit is a total of 22mins with at least 50% of visit consisting of counseling and review of plan of care. Venereal d isease screening [id number] Z11.3 [id number] Yosi Mercer MD [facility] [address],[place] [address] 12/19/2023 09:28:17 12/19/2023 09:56:41 Urinary symptoms [id number] R39.9 [id number] Dorys Geovannaluz marinaBRIEN [facility] [address],[place] [address] 08/29/2024 10:33:32 08/29/2024 13:34:20 Gynecologic examination [id number] Z01.419 WWEPap - done todaySTI screen - declinedMa mmogram - UTDColon cancer screening - UTDRoutine labs - UTD/PCPRTC in 1 yr or sooner if needed BP precaution s discussed, encouraged PCP f/u Suggested Calcium with Vitamin D daily. Patient advised to get an annual flu shot in the fall and she could obtain at local pharmacy. Also to obtain TDap vaccinatio n if you have not had one in the last 10 years. Recommend yearly mammograms . Encouraged monthly self breast exams. Encourage safe sexual practices, to use condoms and limit partners if not already in a monogamous relationsh ip. Engage in regular exercise. Avoid tobacco and illicit drugs. This lifestyle behavior pattern will lead to less health conditions and longer life span. If BMI greater than 25 dietary consult advised. All questions have been answered. Acute vaginitis [id number] N76.0 rx sent for yeastvulva r care guidelines reviewed Health Concerns Section Related Observation LastModified by Organization Detai ls LastModified Time None Recorded Concern Status LastModified by Organization Details LastModified Time None Recorded Advance Directives Directive None Recorded Payers Encounter Date Sequence Insurance Name Policy Number Policy Rivera Covered Member ID Rivera Member ID Guarantor Name 11/23/2022 3 [employer] - DOS PRIOR TO 04.17.2023 [id number] Johanna Dominguez [id number] Johanna Dominguez 11/23/2022 2 [place] OF PUBLIC AID Johanna Dominguez [id number] Johanna Dominguez 12/07/2022 3 [employer] - DOS PRIOR TO 04.17.2023 [id number] Johanna Dominguez [id number] Johanna Aburto Dominguez 12/07/2022 2 [place] [facility] [place] Johanna Dominguez [id number] Johanna Aburto Dominguez 06/09/2023 2 [place] [facility] Johanna Dominguez [id number] Johanna Aburto Dominguez 06/09/2023 1 [facility] [id number] Roshonda L Dominguez [id number] U Rostheresenda L Dominguez 12/19/2023 1 [facility] [id number] Roshonda L Dominguez [id number] U Rostheresenda L Dominguez 08/29/2024 1 [facility] [id number] Johanna L Dominguez [id number] U Rosnegin L Dominguez Notes Date Note Type Note Provider Name and Address Organization Details Recorded Time 3 text/html Patient is here today for a painful bumps on vulva/labia, vag d/c, itching for about 3-4 days. Neg pain of abd/pelvis/flankNeg urinary sx'sNeg GI sx'sNeg N/V/F/C/DNeg Vag odor, irritation,SA-Monogamous Rhonda Alarcon ANUJA- [address], [place], [address], [facility] 12/15/2022 18:07:26 3 text/html Here for vulvar check f/u. BRIEN Collins- [address], [place], [address], [facility] 12/07/2022 17:39:34 4 text/html 47yopresents for evaluation of vaginal discharge and itchingsymptoms started 1 week ago, used a new soap at a hotel and symptoms occurred afterno new partnershysterectomy for BCneg odorsneg n/v/fneg pelvic painneg flu-like symptoms BRIEN Reynolds [address], [place], [address], [facility] 06/09/2023 11:40:43 text/html Annual GYNReported bypatient.Urinary symptoms:No hematuria; No incontinence Vulva:No genital lesion Vagina:White;Vaginal itching Breast:No breast pain; No breast lump; No nipple discharge Current Contraception:hyst Sexual complaints:No sexual complaints; No pain during intercourse; Normal libido Menopausal Symptoms:No menopausal symptoms; Normal vaginal lubrication Psychological symptoms:No depression; No anxiety; No PMDD Preventive measures:Encourage self breast examination; Encourage regular exercise; Encourage no tobacco use; Encourage regular mammograms starting age 42Notes:48yo wweh/o hyst for AUB/fibroidsh/o abnormal paps prior to hyst requiring procedure per ptmammogram UTD olonoscopy UTD vaginal itching/discharge BRIEN Reynolds [address], [place], [address], [facility] 08/29/2024 13:29:18 OBGyn Episode Ob Episode Information Episode Created Date Number of Fetuses Patient Bloodtype Patient rh Status Prepregnancy Weight lbs Domestic Partner Domestic Partner Phone Father Name Pumper Gauger Apprentice Status 11/10/19 21 1 CLOSED Fetus Data First Name Last Name Admitted to NICU Weight (g) Sex Living Outcome Pediatric Complications Fetus ID Race Codes Race Delivery Type 2834.95 M Full Term 66007 Vaginal Delivery Daniel Calculation Initial Daniel Date [...] Domestic Partner Domestic Partner Phone Father Name Pumper Gauger Apprentice Status 11/10/19 21 1 CLOSED Fetus Data First Name Last Name Admitted to NICU Weight (g) Sex Living Outcome Pediatric Complications Fetus ID Race Codes Race Delivery Type 3175.14 4 F Full Term 16055 Vaginal Delivery Daniel Calculation Initial Daniel Date [...] Domestic Partner Domestic Partner Phone Father Name Pumper Gauger Apprentice Status 11/10/19 21 1 CLOSED Fetus Data First Name Last Name Admitted to NICU Weight (g) Sex Living Outcome Pediatric Complications Fetus ID Race Codes Race Delivery Type 2834.95 M Full Term 81957 Vaginal Delivery Daniel Calculation Initial Daniel Date [...] Domestic Partner Domestic Partner Phone Father Name Pumper Gauger Apprentice Status 11/10/19 21 1 CLOSED Fetus Data First Name Last Name Admitted to NICU Weight (g) Sex Living Outcome Pediatric Complications Fetus ID Race Codes Race Delivery Type 2976.47 0704 M Full Term 02727 Vaginal Delivery Daniel Calculation Initial Daniel Date [...]
--- OUTSIDE RECORDS SUMMARY | 2024-09-09 07:36 | XMS_ITS | Clinical Summary ---
Author Organization [facility] Address [address] [place] [address] Care Team Providers Care Painter Shipyard Name Role Phone Farhad Fuchs MD Primary Care Provider [phone] Source Comments [facility],non-owned Affiliates and Associated Physician Practices is amultiple site organization consisting of ambulatory clinics and hospital sitesin [place], [place], [place] and [place]. This disclosure is being madepursuant to the Care Everywhere program and may not contain all information available regarding this patient. Last updated 18.[facility] Allergies Active Allergy Reactions Criticality Noted Date [...] on file Legal Sex Female 6:20 AM VIDEOTAPE EDITOR Gender Identity Not on file Sexual Orientation Not on file Last Filed Vital Signs Vital Sign Reading Time Taken Comments Blood Pressure 128/76 03/09/2022 10:42 AM VIDEOTAPE EDITOR Pulse 82 01/08/2016 7:54 AM CDT Temperature 36.6 C (97.8 F) 03/09/2022 10:42 AM VIDEOTAPE EDITOR Respiratory Rate 16 01/08/2016 7:54 AM CDT Oxygen Saturation 100% 01/08/2016 7:54 AM CDT Inhaled Oxygen Concentration - - Weight 85.1 kg (187 lb 9.6 oz) 03/09/2022 10:42 AM VIDEOTAPE EDITOR Height 157.5 cm (5' 2) 03/09/2022 10:42 AM VIDEOTAPE EDITOR Body Mass Index 34.31 03/09/2022 10:42 AM VIDEOTAPE EDITOR Plan of Treatment Health Maintenance Due Date [...] PANEL (CALCIUM TOTAL) (01/08/2016 4:02 AM CDT) [facility] Glucose 95 74 - 106 mg/dL 01/08/2016 5:06 AM CDT [facility] Sodium 139 136 - 145 mmol/L 01/08/2016 5:06 AM CDT [facility] Potassium 3.8 3.5 - 5.1 mmol/L 01/08/2016 5:06 AM CDT [facility] Chloride 104 98 - 107 mmol/L 01/08/2016 5:06 AM CDT [facility] CO2 28 22 - 31 mmol/L 01/08/2016 5:06 AM CDT [facility] Calcium 8.9 8.5 - 10.1 mg/dL 01/08/2016 5:06 AM CDT [facility] Anion Gap 7 5 - 20 mmol/L 01/08/2016 5:06 AM CDT [facility] BUN 12 7 - 21 mg/dL 01/08/2016 5:06 AM CDT [facility] Creatinine 0.95 0.50 - 1.30 mg/dL 01/08/2016 5:06 AM CDT [facility] eGFR by MDRD >60 >60 mL/min/1.7 3m2 01/08/2016 5:06 AM CDT [facility] eGFR by MDRD >60 >60 mL/min/1.7 3m2 01/08/2016 5:06 AM CDT [facility] Blood BLOOD SPECIMEN / Unknown 01/08/2016 4:02 AM CDT 01/08/2016 4:35 AM CDT Michaela Winters MD LAB - CHEMISTRY ORDERABL ES Final Result [facility] [address] [place] [address] from Last 3 Months or Most Recently Relevant to Health Maintenance Insurance [facility] MEDICAID - OUT OF STATE [facility]LY [facility] Advance Directives * Full Code (Latest Code Status on File) Date Activated Date Inactivated Comments 01/07/2016 7:16 PM 01/08/2016 12:15 PM * Full Code Date Activated Date Inactivated Comments 01/07/2016 3:44 PM 01/07/2016 7:16 PM Care Teams Painter Shipyard Relationship Specialty Start Date End Date Farhad Fuchs MD PCP - General 01/15/18
[2024-09-09] MEDS: ACETAMINOPHEN 500 MG TABLET 1000 MG PO (07:38)
[2024-09-09] MEDS: LACTATED RINGERS 1,000 ML 999 ML IV CONT (07:38)
--- NOTE | 2024-09-09 07:49 | ED.GENADULT ---
HPI - General Adult General Chief complaint: Arrhythmia/Palpitations Stated complaint: palpations Time Seen by Provider: 09/09/24 06:56 History of Present Illness HPI narrative: 48-year-old female presenting to the emergency department for evaluation for intermittent heart palpitations. Patient states approximately 1 month ago she had intermittent or palpitations over the course of a week. Patient did schedule a follow-up appointment with primary care physician but never went to go see her primary care physician. Patient states symptoms did improve. Patient reports that last night she began having the palpitations again. Patient states that he does have a headache for the last 5 days. Patient reports heart palpitations only last approximately a minute and resolved. Patient states while she was at rest her heart rate did jump up to approximately 160. Time of evaluation patient is in normal sinus rhythm with heart rate in the 90s. Related Data Home Medications ?Medication ?Instructions ?Recorded ?Confirmed ?Last Taken ?Type metoprolol tartrate 100 mg tablet 100 mg PO DAILY 09/09/24 09/09/24 09/08/24 History Allergies Allergy/AdvReac Type Severity Reaction Status Date / Time No Known Allergies Allergy Verified 09/09/24 12:03 Review of Systems Review of Systems: All systems reviewed & are unremarkable except as noted in HPI and below PMFSH Past Medical History Medical History (Updated 09/09/24 @ 16:44 by Marylou Solis PA-C) Gastroesophageal reflux disease Hyperlipidemia Genital herpes Hypovitaminosis D Bakers cyst Allergic rhinitis Asthma Hepatic steatosis Pre-diabetes Hypertension Surgical History Surgical History (Updated 09/09/24 @ 16:42 by Marylou Solis PA-C) History of tubal ligation History of hysterectomy History of reduction mammoplasty Family History Family History Mother Hypertension Diabetes mellitus Family history of alcoholism Family history of Alzheimer's disease Social History Social History (Updated 09/09/24 @ 16:43 by Marylou Solis PA-C) Social History: Surrogate medical decision maker: Mello Dominguez, spouse. Code status: Full code. Smoking status: Never smoker Second hand tobacco smoke exposure: No Alcohol intake: never Substance use: never Substance use type: does not use Do You Feel Safe in your Home?: Yes Lack of Transportation: No Lack of Food: Never True Current Housing: I Have Housing Concerned About Future Housing: No Difficulty Paying Gas/Electric Bills: No Difficulty Paying for Meds: No Currently Unemployed: No Education: Associate Degree Difficulty w/ Childcare or Family Care: No Living arrangements: with family Additional living arrangements comments: Lives with family in [place]. Additional occupation/education comments: [employer] in [place]. Spiritual care concerns: No Exam Narrative: APPEARANCE: Well appearing, no pain, no distress, well-nourished. HEAD: normocephalic, atraumatic. EYES: PERRLA/EOMI, conjunctivae clear. NOSE: Normal no drainage EARS:TMS clear with good light reflex. THROAT: Pharynx clear, no exudate. NECK: Supple. No adenopathy, no masses. RESPIRATORY: Airway patent, respirations nonlabored. Clear to auscultation bilaterally, no rales, rhonchi, wheezing. CARDIOVASCULAR: Regular rate and rhythm without murmurs rubs or gallops. ABDOMINAL: Soft, nontender, nondistended, normal bowel sounds MUSCULOSKELETAL: Moves all extremities. Strength/ROM intact, No edema, No calf tenderness. NEURO: Alert. Cranial nerves II through XII intact. Good gait. Good coordination SKIN: Warm, dry. Normal Color PSYCHIATRIC: Normal affect/mood. Course Vital Signs Vital signs: Vital Signs Temperature 98.2 F 09/09/24 05:40 Pulse Rate 133 H 09/09/24 05:40 Respiratory Rate 20 09/09/24 05:40 Blood Pressure 169/87 H 09/09/24 05:40 Pulse Oximetry 100 09/09/24 05:40 Oxygen Delivery Room Air 09/09/24 05:40 Temperature 98.6 F 09/09/24 16:00 Pulse Rate 79 09/09/24 16:00 Respiratory Rate 14 09/09/24 16:00 Blood Pressure 136/94 H 09/09/24 16:00 Pulse Oximetry 99 09/09/24 16:00 Oxygen Delivery Room Air 09/09/24 06:27 Medical Decision Making [facility] Narrative Medical decision making narrative: 48-year-old female presents emergency department for evaluation for intermittent tachycardia. Patient's EKG showed normal sinus rhythm our emergency department here. Patient is currently afebrile with no leukocytosis hemoglobin 11.4. Patient has an INR of 1.0. Patient's D-dimer was elevated at 1.26. Patient has no significant acute abnormalities on her CMP patient's initial troponin was less than 0.012 the patient's your troponin was elevated at 0.043. Patient does have an elevated TSH at 5.5 with a free T4 of 0.88. No acute abnormalities on her UA. CTA was ordered to evaluate for pulmonary embolism and this was negative. Case was discussed with Cardiology and they did not feel that she needed to be started on heparin bolus and infusion they did recommend following her troponins until peak. Case will be discussed with the hospitalist patient will be admitted to the IMU. Differential Diagnosis Differential Diagnosis: Pulmonary embolism, pneumonia, ACS, SVT, AFib Vital Signs Vital Signs: Vital Signs Temperature 98.2 F 09/09/24 05:40 Pulse Rate 133 H 09/09/24 05:40 Respiratory Rate 20 09/09/24 05:40 Blood Pressure 169/87 H 09/09/24 05:40 Pulse Oximetry 100 09/09/24 05:40 Oxygen Delivery Room Air 09/09/24 05:40 Temperature 98.6 F 09/09/24 16:00 Pulse Rate 79 09/09/24 16:00 Respiratory Rate 14 09/09/24 16:00 Blood Pressure 136/94 H 09/09/24 16:00 Pulse Oximetry 99 09/09/24 16:00 Oxygen Delivery Room Air 09/09/24 06:27 Lab Data Lab results reviewed: Yes I reviewed the patient's lab results. 09/09/24 06:09 09/09/24 06:09 Labs: Lab Results 09/09/24 09/09/24 09/09/24 Range/Units 06:09 06:24 09:19 WBC 7.8 (4.5-10.0) K/mm3 RBC 3.84 L (4.2-5.4) M/mm3 Hgb 11.4 L (12.0-15.0) g/dL Hct 35.8 L (37.0-47.0) % MCV 93.2 (80-100) fl MCH 29.7 (26-34) pg MCHC 31.8 L (32-36) g/dl RDW 12.8 (11.5-14.5) % Plt Count 330 (150-375) k/mm3 MPV 9.3 (7.4-10.4) fl Immature Gran % (Auto) 0.1 (0-0.5) % Neut % (Auto) 31.1 L (45.5-73.1) % Lymph % (Auto) 55.9 H (18.3-44.2) % [place] % (Auto) 8.1 (2.6-8.5) % Eos % (Auto) 4.4 (0-4.4) % Baso % (Auto) 0.4 (0.2-1.2) % Lymph # (Auto) 4.36 H (0.9-3.2) K/mm3 [place] # (Auto) 0.6 (0.1-0.6) K/mm3 Eos # (Auto) 0.3 (0-0.3) K/mm3 Baso # (Auto) 0.0 (0.0-0.1) K/mm3 Abs Immat Gran (auto) 0.01 (0.00-0.031) K/mm3 Absolute Neuts (auto) 2.4 (1.3-6.7) K/mm3 Absolute Nucleated RBC 0.000 (0.0-0.012) K/mm3 Nucleated RBC % 0.0 (0.0-0.2) % PT 13.9 (11.1-14.7) Seconds INR 1.0 APTT 26.6 (22.3-36.8) Seconds D-Dimer 1.26 H (<0.48) ug/mL Sodium 138 (137-145) mmol/L Potassium 3.9 (3.4-5.0) mmol/L Chloride 103 (98-107) mmol/L Carbon Dioxide 26 (22-30) mmol/L Anion Gap 9 (4-12) mmol/L BUN 8 (7-17) mg/dL Creatinine 0.70 (0.7-1.0) mg/dL Estim Creat Clear Calc 88 ml/min Estimated GFR > 60 (59 - ) Glucose 121 H (65-110) mg/dL Calcium 9.5 (8.4-10.2) mg/dL Magnesium 1.9 (1.6-2.3) mg/dL Total Bilirubin 0.3 (0.2-1.3) mg/dL AST 39 H (14-36) U/L ALT 44 H (6-35) U/L Alkaline Phosphatase 103 (38-126) U/L Troponin I < 0.012 0.043 H* D (0.000-0.034) ng/mL Total Protein 8.0 (6.3-8.2) g/dL Albumin 4.7 (3.5-5.1) g/dL Lipase 76 (23-300) U/L TSH (Reflex) 5.500 H (0.465-4.68) uIU/mL Free T4 0.88 (0.78-2.19) ng/dL Total T3 1.52 (0.82-1.58) NG/ML Urine Color Yellow (Yellow) Urine Appearance Clear (Clear) Urine pH 7.0 (5.0-9.0) Ur Specific [place] 1.005 (1.001-1.035) Urine Protein Negative (Negative) mg/dL Urine Glucose (UA) Negative (Negative) mg/dL Urine Ketones Negative (Negative) mg/dL Ur Blood (Man) Negative (Negative) Urine Nitrate Negative (Negative) Urine Bilirubin Negative (Negative) Urine Urobilinogen 0.2 (<2.0) mg/dL Leukocyte Esterase Rfl Negative (Negative) LORIE/UL Imaging Data Radiologist's impression: Impressions Chest X-Ray 09/09/24 06:48 IMPRESSION: No focal infiltrate or effusion. Chest CTA 09/09/24 10:34 IMPRESSION: No pulmonary embolus. No thoracic aortic dissection. The lungs are clear. Critical Care Time Critical Care Time Critical Care Time: Yes Total Critical Care Time: 35 Discharge Plan Discharge Clinical Impression: Heart palpitations, Elevated troponin Patient Disposition: Still a Patient Condition: Serious
--- NOTE | 2024-09-09 08:51 | ECG_ITS ---
Test Date: 2024-09-09 09:19:20 Measurements Intervals Bertha Rate: 91 P: 61 MD: 140 QRS: 20 QRSD: 89 T: 2 QT: 364 QTc: 450 Interpretive Statements SINUS RHYTHM NONSPECIFIC T-WAVE ABNORMALITY Compared to ECG 09/09/2024 05:47:21 Sinus tachycardia no longer present T-wave abnormality still present Electronically Signed On 09-09-2024 15:03:15 CDT by Josesito Fletcher M.D.
[2024-09-09 09:16] LABS: D Dimer 1.26 ug/mL (<0.48)
[2024-09-09 09:50] LABS: Magnesium 1.9 mg/dL (1.6-2.3)
[2024-09-09 09:52] LABS: Troponin I 0.043 ng/mL (0.000-0.034)
[2024-09-09 10:30] LABS: Free T4 Free Thyroxine Reflex 0.88 ng/dL (0.78-2.19)
[2024-09-09 11:09] LABS: Total Triiodothyronine (T3) 1.52 NG/ML (0.82-1.58)
--- NOTE | 2024-09-09 12:05 | ADMGEN ---
This patient, Johanna Dominguez, was admitted to IMU Room 209-01. Patient/family oriented to hospital policies and general routines including ID bracelet, bed and alarms, visiting hours, pain management, procedures, bathroom and other care routines, personal items, smoking policy, room service/diet, and visiting hours. Information on how to activate the Rapid Response Team has been discussed. Patient/Family are encouraged to report perceived risks to care and to ask questions if they do not understand what they are told or what they should do.
--- NOTE | 2024-09-09 12:16 | ECG_ITS ---
Test Date: 2024-09-09 12:16:57 Measurements Intervals [place] Rate: 80 P: 45 IA: 120 QRS: 22 QRSD: 93 T: 1 QT: 376 QTc: 434 Interpretive Statements SINUS RHYTHM NONSPECIFIC T WAVE ABNORMALITY Compared to ECG 09/09/2024 09:19:20 NO SIGNIFICANT CHANGES Electronically Signed On 09-10-2024 13:50:14 CDT by Chuckie Pedraza M.D.
[2024-09-09 14:22] LABS: Troponin I 0.014 ng/mL (0.000-0.034)
--- NOTE | 2024-09-09 14:35 | PM.IMHP ---
H&P: HPI History of Present Illness Date/Time: 09/09/24 15:00 Chief Complaint: Palpitations. Narrative: This is a very pleasant 48-year-old female with hypertension, hyperlipidemia, and prediabetes who presented to the emergency department via private vehicle with complaints of palpitations. She gives a 1 and half month history of intermittent episodes of palpitations and racing heart which are self-limiting and typically last a minute or less. She had not seen any pattern as to when this occurs although it has become more frequent this week and she is now noticing that it is happening at nighttime and in the morning when she gets up. At times it feels as though her heart is beating so fast that she can see her pulse in her vision. Associated symptoms with the palpitations include mild shortness of breath, chest tightness, and lightheadedness. On several occasions her smart watch has alerted her that she may be in atrial fibrillation. She denies syncope, near syncope, exertional chest pain, orthopnea, paroxysmal nocturnal dyspnea, vomiting, lower extremity edema, calf pain, and sweats. No history of thyroid disease for sleep apnea although she does report that she is frequently fatigued and falls asleep easily in situations where it is not ideal. She drinks coffee on occasion but no significant caffeine use. No alcohol use. In the ED: Vital signs on arrival include a temperature of 98.6?, blood pressure 169/87, pulse 133, SpO2 100% on room air. EKG showed sinus tachycardia with nonspecific T-wave abnormalities. Labs were significant for a WBC count of 7.8, hemoglobin 11.4, sodium 138, potassium 3.9, BUN 8, creatinine 0.70, glucose 121, D-dimer 1.26, TSH 5.550, T4 0.88. Initial troponin was less than 0.012. Three hour troponin was 0.043. Chest CTA was negative for pulmonary embolus and acute findings. She was given a L of lactated Ringer's and aspirin 324 mg. She is being admitted in this setting for close monitoring and Cardiology consultation. Review of Systems Review of Systems: 12 systems were reviewed and are negative except for as per HPI. [facility] Past Medical History Medical History (Updated 09/09/24 @ 16:44 by Marylou Solis PA-C) Gastroesophageal reflux disease Hyperlipidemia Genital herpes Hypovitaminosis D Bakers cyst Allergic rhinitis Asthma Hepatic steatosis Pre-diabetes Hypertension Surgical History Surgical History (Updated 09/09/24 @ 16:42 by Marylou Solis PA-C) History of tubal ligation History of hysterectomy History of reduction mammoplasty Family History Family History Mother Hypertension Diabetes mellitus Family history of alcoholism Family history of Alzheimer's disease Social History Social History (Updated 09/09/24 @ 16:43 by Marylou Solis PA-C) Social History: Surrogate medical decision maker: Mello Dominguez, spouse. Code status: Full code. Smoking status: Never smoker Second hand tobacco smoke exposure: No Alcohol intake: never Substance use: never Substance use type: does not use Do You Feel Safe in your Home?: Yes Lack of Transportation: No Lack of Food: Never True Current Housing: I Have Housing Concerned About Future Housing: No Difficulty Paying Gas/Electric Bills: No Difficulty Paying for Meds: No Currently Unemployed: No Education: Associate Degree Difficulty w/ Childcare or Family Care: No Living arrangements: with family Additional living arrangements comments: Lives with family in [place]. Additional occupation/education comments: [employer] in [place]. Spiritual care concerns: No Meds Home Medications and Allergies Home Medications ?Medication ?Instructions ?Recorded ?Confirmed ?Type atorvastatin 20 mg tablet 20 mg PO DAILY #90 tabs 12/24/20 09/09/24 Rx metformin 500 mg tablet 500 mg PO BID #120 tabs 12/24/20 09/09/24 Rx amlodipine 10 mg tablet See Rx Instructions .Route 06/17/21 09/09/24 Rx .COMPLEX #90 tabs metoprolol tartrate 100 mg tablet 100 mg PO DAILY 09/09/24 09/09/24 History Allergies Allergy/AdvReac Type Severity Reaction Status Date / Time No Known Allergies Allergy Verified 09/09/24 12:03 Vital Signs Vital Signs - 24 hr 09/09/24 05:40 09/09/24 06:09 09/09/24 06:27 Temperature 98.2 F Pulse Rate 133 H 120 H Respiratory Rate 20 Blood Pressure 169/87 H Pulse Oximetry 100 Oxygen Delivery Room Air Room Air 09/09/24 07:41 09/09/24 09:00 09/09/24 11:19 Temperature Pulse Rate 98 87 85 Respiratory Rate 18 18 17 Blood Pressure 139/78 119/65 169/107 H Pulse Oximetry 100 100 100 Oxygen Delivery 09/09/24 12:22 Temperature Pulse Rate 80 Respiratory Rate 20 Blood Pressure 134/94 H Pulse Oximetry 100 Oxygen Delivery Exam Narrative: General: Well-developed, nontoxic-appearing female in the semi-[place] position in bed in no acute distress. Weight: 83 kg. BMI: 33.5. HEENT: PERRL, EOMI. Sclera anicteric. Oral mucosa moist. Neck: Supple. No obvious thyromegaly. Respiratory: Lungs are clear to auscultation bilaterally. Cardiovascular: Regular rate and rhythm with S1-S2. Gastrointestinal: Abdomen is soft, nontender, and nondistended with positive bowel sounds. Skin: Warm and dry. No rash or lesions on limited exam. Extremities: No cyanosis, clubbing, or edema. Radial and pedal pulses intact. Neurological: Alert. Cranial nerves 2-12 are grossly intact. No gross focal deficits to casual conversation. Psychiatric: Pleasant and cooperative with normal mood and affect. Judgment and insight intact. H&P: Results Labs Labs: Short CBC 09/09/24 Range/Units 06:09 WBC 7.8 (4.5-10.0) K/mm3 Hgb 11.4 L (12.0-15.0) g/dL Hct 35.8 L (37.0-47.0) % Plt Count 330 (150-375) k/mm3 BMP 09/09/24 06:09 Sodium 138 Potassium 3.9 Chloride 103 Carbon Dioxide 26 BUN 8 Creatinine 0.70 Glucose 121 H Calcium 9.5 Cardiac Enzymes 09/09/24 09/09/24 09/09/24 Range/Units 06:09 09:19 13:53 Troponin I < 0.012 0.043 H* D 0.014 D (0.000-0.034) ng/mL Liver Function 09/09/24 Range/Units 06:09 Total Bilirubin 0.3 (0.2-1.3) mg/dL AST 39 H (14-36) U/L ALT 44 H (6-35) U/L Alkaline Phosphatase 103 (38-126) U/L Albumin 4.7 (3.5-5.1) g/dL Urine 09/09/24 Range/Units 06:24 Urine Color Yellow (Yellow) Urine Appearance Clear (Clear) Urine pH 7.0 (5.0-9.0) Ur Specific [place] 1.005 (1.001-1.035) Urine Protein Negative (Negative) mg/dL Urine Glucose (UA) Negative (Negative) mg/dL Imaging Chest X-Ray 09/09/24 06:48 IMPRESSION: No focal infiltrate or effusion. Chest CTA 09/09/24 10:34 IMPRESSION: No pulmonary embolus. No thoracic aortic dissection. The lungs are clear. Assessment and Plan Assessment and plan (1) Heart palpitations: Code(s): R00.2 - Palpitations Status: Acute (2) Elevated troponin: Code(s): R79.89 - Other specified abnormal findings of blood chemistry Status: Acute (3) Suspected sleep apnea: Code(s): R29.818 - Other symptoms and signs involving the nervous system Status: Acute (4) Hypertension: Code(s): I10 - Essential (primary) hypertension Status: Acute (5) Hyperlipidemia: Code(s): E78.5 - Hyperlipidemia, unspecified Status: Acute (6) Pre-diabetes: Code(s): R73.03 - Prediabetes Status: Acute Plan The patient presented to the emergency department for evaluation of increasing intermittent, self-limiting palpitations and sensations of racing heart as detailed in HPI. Labs, imaging, EKG, and all reports were personally reviewed. The patient's smart watch has shown possible atrial fibrillation on couple of occasions but she was in a sinus tachycardia on arrival; she is now in a normal sinus rhythm without intervention. Her 3 hour troponin jumped slightly, likely due to the tachycardia, however will trend to peak. She is not having any active chest discomfort and she gives no history to suggest that she has been having issues with angina. Depending on telemetry overnight, she may need to be discharged home with an event monitor to screen for atrial fibrillation. Echocardiogram has been ordered. TSH is slightly high but T4 is within normal limits. I suspect she has underlying sleep apnea an ApneaLink has been ordered for this evening. Blood pressures were initially a bit elevated but have been stable since that time. Random glucose was 121 her most recent A1c was below 6%. Her home medications will be reviewed and resumed as appropriate. Findings and treatment plan were discussed with the patient. Questions were solicited and answered to satisfaction. The patient's medical management will be taken over by the hospitalist team in a.m. Quality VTE Prophylaxis VTE prophylaxis: pharmacologic ordered The patient has been admitted under observation status. Hospitalist MIPS Advance Care Plan I have confirmed that the patient's Advanced Care Plan is present, code status is documented, or surrogate decision maker is listed in patient medical record.: Yes Medication Reconciliation I have utilized all available resources to obtain, update and review the patients current medications (includes all prescriptions, OTC, herbals, cannabis, and nutritional supplements).: Yes
--- NOTE | 2024-09-09 19:25 | PM.CNCAR ---
Assessment and Plan Assessment and plan (1) Elevated troponin: Code(s): R79.89 - Other specified abnormal findings of blood chemistry Status: Acute (2) Heart palpitations: Code(s): R00.2 - Palpitations Status: Acute (3) HLD (hyperlipidemia): Code(s): E78.5 - Hyperlipidemia, unspecified Status: Acute Plan 48-year-old woman with pre diabetes, hypertension, and hyperlipidemia presented with palpitations Troponin elevation -we discussed that this is likely secondary to the rapid ventricular rates however cannot rule out any significant myocardial ischemia especially in light of her comorbidities -we discussed outpatient stress testing and she would prefer inpatient as she is already here -hold metoprolol and plan for treadmill stress testing with myocardial perfusion imaging tomorrow morning Palpitations -continue telemetry monitoring -likely will need 30 day event monitor in outpatient setting -likely will need sleep medicine referral for sleep study -obtain a transthoracic echocardiogram Hyperlipidemia -atorvastatin 20 mg every evening History of Present Illness History of Present Illness Consult date/time: 09/09/24 19:25 Requesting physician: Marylou Solis PA-C Reason For Visit: Heart palpitations, elevated troponin Narrative: 48-year-old woman with pre diabetes, hypertension, and hyperlipidemia presented with palpitations. She has had these palpitations for past several years for which she was started on metoprolol tartrate 100 mg p.o. which had for Hg control her symptoms. However she has noted about 1 and half month ago, the palpitations have become more more difficult to control. Much of these palpitations occur during the times of sleep or when she is out week. 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 She would have some mild palpitations with physical activity but this is very mild compared to the severe palpitation she would typically feel during sleep or upon waking up. Denies any orthopnea or syncope. She does feel some lightheadedness during these severe palpitations. Denies tobacco and alcohol use. Review of Systems Cardiovascular: Cardiovascular: Reports as per HPI Respiratory: Respiratory: Reports as per HPI [facility] Past Medical History Medical History (Updated 09/09/24 @ 16:44 by Marylou Solis PA-C) Gastroesophageal reflux disease Hyperlipidemia Genital herpes Hypovitaminosis D Bakers cyst Allergic rhinitis Asthma Hepatic steatosis Pre-diabetes Hypertension Surgical History Surgical History (Updated 09/09/24 @ 16:42 by Marylou Solis PA-C) History of tubal ligation History of hysterectomy History of reduction mammoplasty Family History Family History Mother Hypertension Diabetes mellitus Family history of alcoholism Family history of Alzheimer's disease Social History Social History (Updated 09/09/24 @ 16:43 by Marylou Solis PA-C) Social History: Surrogate medical decision maker: Mello Dominguez, spouse. Code status: Full code. Smoking status: Never smoker Second hand tobacco smoke exposure: No Alcohol intake: never Substance use: never Substance use type: does not use Do You Feel Safe in your Home?: Yes Lack of Transportation: No Lack of Food: Never True Current Housing: I Have Housing Concerned About Future Housing: No Difficulty Paying Gas/Electric Bills: No Difficulty Paying for Meds: No Currently Unemployed: No Education: Associate Degree Difficulty w/ Childcare or Family Care: No Living arrangements: with family Additional living arrangements comments: Lives with family in [place]. Additional occupation/education comments: [employer] in [place]. Spiritual care concerns: No Meds Home Medications and Allergies Home Medications ?Medication ?Instructions ?Recorded ?Confirmed ?Type atorvastatin 20 mg tablet 20 mg PO DAILY #90 tabs 12/24/20 09/09/24 Rx metformin 500 mg tablet 500 mg PO BID #120 tabs 12/24/20 09/09/24 Rx amlodipine 10 mg tablet See Rx Instructions .Route 06/17/21 09/09/24 Rx .COMPLEX #90 tabs metoprolol tartrate 100 mg tablet 100 mg PO DAILY 09/09/24 09/09/24 History Allergies Allergy/AdvReac Type Severity Reaction Status Date / Time No Known Allergies Allergy Verified 09/09/24 12:03 Vital Signs Vital Signs - 24 hr 09/09/24 05:40 09/09/24 06:09 09/09/24 06:27 Temperature 36.8 C Pulse Rate 133 H 120 H Respiratory Rate 20 Blood Pressure 169/87 H Pulse Oximetry 100 Oxygen Delivery Room Air Room Air 09/09/24 07:41 09/09/24 09:00 09/09/24 11:19 Temperature Pulse Rate 98 87 85 Respiratory Rate 18 18 17 Blood Pressure 139/78 119/65 169/107 H Pulse Oximetry 100 100 100 Oxygen Delivery 09/09/24 12:22 09/09/24 14:00 09/09/24 16:00 Temperature 37.0 C Pulse Rate 80 92 79 Respiratory Rate 20 14 Blood Pressure 134/94 H 136/94 H Pulse Oximetry 100 99 Oxygen Delivery 09/09/24 16:00 Temperature Pulse Rate 79 Respiratory Rate Blood Pressure Pulse Oximetry Oxygen Delivery Exam Const: General: comfortable HENMT: Mouth: Yes moist mucous membranes Eyes: EOM: EOMs intact bilaterally Neck: Neck: no JVD Resp: Effort & Inspection: normal respiratory effort Auscultation: clear to auscultation bilaterally Cardio: Rate: regular rate Rhythm: regular rhythm Extrem: General: no pedal edema Results Labs and Meds 09/09/24 06:09 09/09/24 06:09 Lab results: Cardiac Enzymes 09/09/24 09/09/24 09/09/24 Range/Units 06:09 09:19 13:53 AST 39 H (14-36) U/L Troponin I < 0.012 0.043 H* D 0.014 D (0.000-0.034) ng/mL Coagulation 09/09/24 Range/Units 06:09 PT 13.9 (11.1-14.7) Seconds APTT 26.6 (22.3-36.8) Seconds CBC 09/09/24 Range/Units 06:09 WBC 7.8 (4.5-10.0) K/mm3 RBC 3.84 L (4.2-5.4) M/mm3 Hgb 11.4 L (12.0-15.0) g/dL Hct 35.8 L (37.0-47.0) % Plt Count 330 (150-375) k/mm3 Lymph # (Auto) 4.36 H (0.9-3.2) K/mm3 [place] # (Auto) 0.6 (0.1-0.6) K/mm3 Eos # (Auto) 0.3 (0-0.3) K/mm3 Baso # (Auto) 0.0 (0.0-0.1) K/mm3 Comprehensive Metabolic Panel 09/09/24 Range/Units 06:09 Sodium 138 (137-145) mmol/L Potassium 3.9 (3.4-5.0) mmol/L Chloride 103 (98-107) mmol/L Carbon Dioxide 26 (22-30) mmol/L BUN 8 (7-17) mg/dL Creatinine 0.70 (0.7-1.0) mg/dL Glucose 121 H (65-110) mg/dL Calcium 9.5 (8.4-10.2) mg/dL AST 39 H (14-36) U/L ALT 44 H (6-35) U/L Alkaline Phosphatase 103 (38-126) U/L Total Protein 8.0 (6.3-8.2) g/dL Albumin 4.7 (3.5-5.1) g/dL Intake and Output 09/09/24 09/09/24 09/09/24 07:59 15:59 23:59 Intake Total 1790 790 Balance 1790 790 Intake: IV 1000 Lactated Ringers 1,000 ml @ 999 1000 mls/hr IV CONT .Q1H1M STA Rx#: [id number] Oral 790 790 Patient Weight 09/09/24 23:59 Weight 83 kg
[2024-09-09] MEDS: ACETAMINOPHEN 325 MG TABLET 650 MG PO (20:59)
[2024-09-10] VITALS (8 sets, daily range): BP systolic 134–138; BP diastolic 87–91; PULSE 71–94; RESP 16–18; TEMP 36.8–37; O2SAT 94–100
--- NOTE | 2024-09-10 | EST_ITS ---
Patient Info Name: Johanna Dominguez Age: 48 years : 1975 Gender: Female Ht: 62 in Wt: 182 lbs BSA: 1.94 m2 HR: 83 bpm BP: 142 / 85 mmHg Exam Date: 09/10/2024 6:38 AM Patient Status: I Admit Date: 09/09/2024 Exam Type: CA stress test treadmill w NM A nuclear stress test was performed. Staff Referring Physician: Josesito Fletcher Attending Provider: Sánchez Holder Exercise Technologist: Adrianna Camejo Exercise Physician: Med Grimaldo DO Summary 1. No abnormal ST/T wave changes diagnostic of ischemia with exercise. 2. No arrhythmias were observed during the examination. 3. Exercise capacity fair to good at 6-10 METS. 4. Please correlate with nuclear medicine images, reported separately. 5. Stress test supervised by Ailyn Arteaga NP. Stress test interpreted by Chuckie Pedraza MD. Protocol: Remy Stress ECG Details Stage: REST Duration (min): 0 min : 15 sec Speed (mph): 0.0 Grade (%): 0 HR (bpm): 84 SBP (mmHg): --- DBP (mmHg): --- METS: --- Stage: REST Duration (min): 9 min : 28 sec Speed (mph): 0.0 Grade (%): 0 HR (bpm): 87 SBP (mmHg): 142 DBP (mmHg): 85 METS: --- Stage: STAGE 1 Duration (min): 1 min : 0 sec Speed (mph): 1.7 Grade (%): 10 HR (bpm): 120 SBP (mmHg): 142 DBP (mmHg): 85 METS: --- Stage: STAGE 1 Duration (min): 2 min : 0 sec Speed (mph): 1.7 Grade (%): 10 HR (bpm): 127 SBP (mmHg): 142 DBP (mmHg): 85 METS: --- Stage: STAGE 1 Duration (min): 3 min : 0 sec Speed (mph): 1.7 Grade (%): 10 HR (bpm): 124 SBP (mmHg): 192 DBP (mmHg): 90 METS: --- Stage: STAGE 2 Duration (min): 1 min : 0 sec Speed (mph): 2.5 Grade (%): 12 HR (bpm): 151 SBP (mmHg): 176 DBP (mmHg): 88 METS: --- Stage: STAGE 2 Duration (min): 2 min : 0 sec Speed (mph): 2.5 Grade (%): 12 HR (bpm): 146 SBP (mmHg): 187 DBP (mmHg): 88 METS: --- Stage: STAGE 2 Duration (min): 2 min : 0 sec Speed (mph): 2.5 Grade (%): 12 HR (bpm): 146 SBP (mmHg): 187 DBP (mmHg): 88 METS: --- Stage: RECOVERY Duration (min): 0 min : 59 sec Speed (mph): 0.0 Grade (%): 0 HR (bpm): 113 SBP (mmHg): 187 DBP (mmHg): 88 METS: --- Stage: RECOVERY Duration (min): 1 min : 59 sec Speed (mph): 0.0 Grade (%): 0 HR (bpm): 102 SBP (mmHg): 187 DBP (mmHg): 88 METS: --- Stage: RECOVERY Duration (min): 2 min : 59 sec Speed (mph): 0.0 Grade (%): 0 HR (bpm): 101 SBP (mmHg): 154 DBP (mmHg): 89 METS: --- Stage: RECOVERY Duration (min): 3 min : 33 sec Speed (mph): 0.0 Grade (%): 0 HR (bpm): 105 SBP (mmHg): 154 DBP (mmHg): 89 METS: --- Rest HR: 87 bpm Peak HR: 154 bpm Rest Sys BP: 142 mmHg Peak Sys BP: 192 mmHg Max Pred HR: 174 bpm % Max Pred HR: 89 % Target HR: 148 bpm Max RPP: 29,568 bpm*mmHg Rudolph Score: -1 Target HR Summary: Patient's target heart rate was achieved Cardiac Symptoms: None Max ST Seg Deviation: -1.10 mm Total Time: 5 min : 0 sec Rest Szymanski BP: 85 mmHg Peak Szymanski BP: 90 mmHg Angina Score: None Total METS: 7.1 Resting ECG Sinus rhythm. Nonspecific ST and T wave abnormalities. Stress ECG Sinus tachycardia. No abnormal ST/T wave changes diagnostic of ischemia with exercise. Arrhythmias No arrhythmias were observed during the examination. Report Signatures
[2024-09-10 05:24] LABS: Hematocrit 38.6 % (37.0-47.0); Hemoglobin 12.4 g/dL (12.0-15.0); Mean Corpuscular HGB Conc 32.1 g/dl (32-36); Mean Corpuscular Hemoglobin 29.9 pg (26-34); Mean Platelet Volume 9.3 fl (7.4-10.4); Platelet Count Result 349 k/mm3 (150-375); Red Blood Count 4.15 M/mm3 (4.2-5.4); Red Cell Distribution Width 12.8 % (11.5-14.5); White Blood Count 6.5 K/mm3 (4.5-10.0)
[2024-09-10 05:35] LABS: Anion Gap 11 mmol/L (4-12); Blood Urea Nitrogen 10 mg/dL (7-17); Calcium 9.5 mg/dL (8.4-10.2); Carbon Dioxide 26 mmol/L (22-30); Chloride 104 mmol/L (98-107); Estimated CRCL calculation 83 ml/min; Estimated Glomerular Filt Rate > 60; Glucose 110 mg/dL (65-110); Magnesium 1.8 mg/dL (1.6-2.3); Potassium 4.2 mmol/L (3.4-5.0); Sodium 141 mmol/L (137-145)
[2024-09-10] MEDS: PERFLUTREN LIPID MICROSPHERES 1.5 ML VIAL DILUTED TO 10 ML TOTAL VOLUME IV PUSH (09:50)
--- NOTE | 2024-09-10 10:35 | IVDEFINITY ---
Prior to administration of IV Definity the patient was educated on the risks and benefits of the imaging enhancing agent including potential adverse side effects. The patient verbalized understanding. Allergies were verified. No exclusion criteria were identified and at least one of the following inclusion criteria were met: 1) physician request, 2) patient technically difficult to image (per the [place] [employer]ocardi[employer] guidelines of two or more segments not discernable within the apical view), or 3) questionable left ventricular function. ?
[2024-09-10] MEDS: amLODIPine BESYLATE 10 MG TABLET BY MOUTH (10:36)
[2024-09-10] MEDS: ATORVASTATIN 20 MG TABLET PO (10:36)
--- NOTE | 2024-09-10 15:25 | PM.DS ---
DS: Admitting Diagnosis Discharge Date 09/10/24 Admitting Diagnosis Palpitations. DS: Discharge Diagnosis Discharge Diagnosis (1) Elevated troponin: Code(s): R79.89 - Other specified abnormal findings of blood chemistry Status: Acute (2) Heart palpitations: Code(s): R00.2 - Palpitations Status: Acute DS: Summary Hospital Course Hospital Course: This is a very pleasant 48-year-old female with hypertension, hyperlipidemia, and prediabetes who presented to the emergency department via private vehicle with complaints of palpitations. She gives a 1 and half month history of intermittent episodes of palpitations and racing heart which are self-limiting and typically last a minute or less. She had not seen any pattern as to when this occurs although it has become more frequent this week and she is now noticing that it is happening at nighttime and in the morning when she gets up. In the ED: Vital signs on arrival include a temperature of 98.6?, blood pressure 169/87, pulse 133, SpO2 100% on room air. EKG showed sinus tachycardia with nonspecific T-wave abnormalities. Labs were significant for a WBC count of 7.8, hemoglobin 11.4, sodium 138, potassium 3.9, BUN 8, creatinine 0.70, glucose 121, D-dimer 1.26, TSH 5.550, T4 0.88. Initial troponin was less than 0.012. Three hour troponin was 0.043. Chest CTA was negative for pulmonary embolus and acute findings. She was given a L of lactated Ringer's and aspirin 324 mg. She is being admitted in this setting for close monitoring and Cardiology consultation. Cardiology was consulted and patient underwent stress test whcih was negative, ECHo showed EF 60-65% with grade I diastolic dysfunction. 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 before heading home Elevated trooponin likely from tachycardia F/u with PCP in 3-5 days F/u with cardiology as instructed Time Spent with Patient Time attestation: Total time spent providing and/or coordinating discharge services: DS: Data Data Completed and Pending Labs on day of discharge: Labs from last 24 hours 09/10/24 05:07 WBC 6.5 RBC 4.15 L Hgb 12.4 Hct 38.6 MCV 93.0 MCH 29.9 MCHC 32.1 RDW 12.8 Plt Count 349 MPV 9.3 Sodium 141 Potassium 4.2 Chloride 104 Carbon Dioxide 26 Anion Gap 11 BUN 10 Creatinine 0.73 Estim Creat Clear Calc 83 Estimated GFR > 60 Glucose 110 Calcium 9.5 Magnesium 1.8 Discharge Plan Discharge Attending physician on discharge: Sánchez Holder Consulting providers: Josesito Fletcher Discharging Clinician: Sánchez Holder Anticipated Discharge Date/Time: 09/10/24 15:24 Patient Disposition: Home Activity: as tolerated Diet: as tolerated and heart healthy Patient Instructions: Antibiotic Form Patient Language: Chinese Stand Alone Forms: General Discharge Information Follow-up/Referrals: Josesito Fletcher MD [Physician] - (F/u with cardiology as instructed ) Dyan,MARC Montgomery [Primary Care Provider] - (F/u with PCP in 3-5 days ) Discharge Medications: Continued metoprolol tartrate 100 mg tablet 100 mg PO DAILY atorvastatin 20 mg tablet 20 mg PO DAILY Qty: 90 1RF metformin 500 mg tablet 500 mg PO BID Qty: 120 1RF amlodipine 10 mg tablet See Rx Instructions .ROUTE .COMPLEX Qty: 90 1RF Dose Instruction: TAKE 1 TABLET BY MOUTH DAILY Rx Instructions: TAKE 1 TABLET BY MOUTH DAILY Date of admission: 09/09/24 11:20 Primary Care Provider: Dyan,Viridiana Agustin Admitting Provider: Hebret Carranza Attending physician on admission: Sánchez Holder Condition: Serious
--- NOTE | 2024-09-10 15:26 | PM.PNCARD ---
Progress Note: A&P Assessment and Plan (1) Elevated troponin: Code(s): R79.89 - Other specified abnormal findings of blood chemistry Status: Acute (2) Heart palpitations: Code(s): R00.2 - Palpitations Status: Acute (3) HLD (hyperlipidemia): Code(s): E78.5 - Hyperlipidemia, unspecified Status: Acute Plan 48-year-old woman with pre diabetes, hypertension, and hyperlipidemia presented with palpitations Troponin elevation -we discussed that this is likely secondary to the rapid ventricular rates however cannot rule out any significant myocardial ischemia especially in light of her comorbidities -exercise nuclear stress test negative Palpitations -continue telemetry monitoring -30 day event monitor ordered -likely will need sleep medicine referral for sleep study -HIGINIO unremarkable Hyperlipidemia -atorvastatin 20 mg every evening OK for discharge today from a cardiac perspective Subjective Date/time seen: 09/10/24 15:26 Interval history: Cardiology follow up visit Feeling well today, has no complaints. Review of Systems Cardiovascular: Cardiovascular: Reports as per HPI Respiratory: Respiratory: Reports as per HPI Exam Const: General: comfortable HENMT: Mouth: Yes moist mucous membranes Eyes: EOM: EOMs intact bilaterally Neck: Neck: no JVD Resp: Effort & Inspection: normal respiratory effort Auscultation: clear to auscultation bilaterally Cardio: Rate: regular rate Rhythm: regular rhythm Extrem: General: no pedal edema Objective Data Vital Signs Vital Signs: Vital Signs - 24 hr 09/09/24 16:00 09/09/24 16:00 09/09/24 18:00 Temperature 37.0 C Pulse Rate 79 79 92 Respiratory Rate 14 Blood Pressure 136/94 H Pulse Oximetry 99 Oxygen Delivery 09/09/24 20:00 09/09/24 20:00 09/09/24 20:00 Temperature 36.8 C Pulse Rate 87 87 88 Respiratory Rate 14 16 Blood Pressure 114/59 L Pulse Oximetry 99 100 Oxygen Delivery Room Air 09/09/24 22:00 09/09/24 22:30 09/09/24 23:05 Temperature 36.9 C Pulse Rate 89 86 Respiratory Rate 16 Blood Pressure 129/82 Pulse Oximetry 96 94 Oxygen Delivery Room Air 09/10/24 00:00 09/10/24 00:00 09/10/24 02:00 Temperature Pulse Rate 94 86 86 Respiratory Rate 16 Blood Pressure Pulse Oximetry 94 Oxygen Delivery Room Air 09/10/24 04:00 09/10/24 04:00 09/10/24 04:00 Temperature 37.0 C Pulse Rate 86 71 87 Respiratory Rate 16 16 Blood Pressure 134/87 Pulse Oximetry 94 99 Oxygen Delivery Room Air 09/10/24 08:00 09/10/24 08:00 09/10/24 08:00 Temperature 36.8 C Pulse Rate 83 92 Respiratory Rate 18 Blood Pressure 138/91 H Pulse Oximetry 100 Oxygen Delivery Room Air 09/10/24 10:00 09/10/24 11:43 09/10/24 12:00 Temperature 36.9 C Pulse Rate 83 92 Respiratory Rate 16 Blood Pressure 137/88 Pulse Oximetry 100 Oxygen Delivery Room Air 09/10/24 12:00 Temperature Pulse Rate 92 Respiratory Rate Blood Pressure Pulse Oximetry Oxygen Delivery Intake/Output Intake/Output: Intake & Output 09/07/24 09/08/24 09/09/24 09/10/24 23:59 23:59 23:59 23:59 Intake Total 2580 Balance 2580 Meds/Results Medications: Active Medications Generic Name Dose Route Start Last Admin Trade Name Freq PRN Reason Stop Dose Admin Acetaminophen 650 mg 09/09/24 16:48 09/09/24 20:59 Acetaminophen 325 Mg Tablet PO 650 mg Q6H PRN Administration Mild Pain (1-3) or Fever Amlodipine Besylate 10 mg 09/10/24 09:00 09/10/24 10:36 Amlodipine Besylate 10 Mg Tablet BY MOUTH 10 mg DAILY ESVIN Administration Atorvastatin Calcium 20 mg 09/10/24 09:00 09/10/24 10:36 Atorvastatin 20 Mg Tablet PO 20 mg DAILY ESVIN Administration Enoxaparin Sodium 40 mg 09/10/24 09:00 09/10/24 12:50 Enoxaparin 40 Mg/0.4 Ml Syringe SUB-Q Not Given DAILY ESVIN Metoprolol Succinate 100 mg 09/10/24 09:00 Metoprolol Succinate Ext Rel 100 Mg Tabcr PO QAM ESVIN Perflutren Lipid Microsphere 0 ml 09/10/24 11:14 Perflutren Lipid Microspheres 1.5 Ml Vial Diluted To 10 Ml Total Volume IV PUSH 09/13/24 11:14 ONCE PRN adequate visualization Protocol Radiology Results: ITS Impressions Chest X-Ray 09/09/24 06:48 IMPRESSION: No focal infiltrate or effusion. Chest CTA 09/09/24 10:34 IMPRESSION: No pulmonary embolus. No thoracic aortic dissection. The lungs are clear. Pharmacological Stress Test 09/10/24 13:39 IMPRESSION: 1. Normal myocardial perfusion at rest and during stress. 2. Left ventricular ejection fraction measuring >70%. Labs Labs: Laboratory Results - last 24 hr 09/10/24 05:07 WBC 6.5 RBC 4.15 L Hgb 12.4 Hct 38.6 MCV 93.0 MCH 29.9 MCHC 32.1 RDW 12.8 Plt Count 349 MPV 9.3 Sodium 141 Potassium 4.2 Chloride 104 Carbon Dioxide 26 Anion Gap 11 BUN 10 Creatinine 0.73 Estim Creat Clear Calc 83 Estimated GFR > 60 Glucose 110 Calcium 9.5 Magnesium 1.8 Quality VTE Prophylaxis VTE prophylaxis: pharmacologic ordered
[2024-09-10] MEDS: ACETAMINOPHEN 325 MG TABLET 650 MG PO (15:28)
--- NOTE | 2024-09-10 16:48 | ECHO_ITS ---
Patient Info Name: Johanna Dominguez Age: 48 years : 1975 Gender: Female Ht: 62 in Wt: 182 lbs BSA: 1.94 m2 HR: 87 bpm BP: 134 / 87 mmHg Heart Rhythm: Sinus Rhythm Technical Quality: Fair Exam Date: 09/10/2024 9:23 AM Patient Status: I Admit Date: 09/09/2024 Exam Type: CA echo dop color flow w con Complete two-dimensional, color flow and Doppler transthoracic echocardiogram is performed with contrast to opacify the left ventricle and to improve the deliniation of the left ventricle endocardial borders. Staff Referring Physician: Josesito Fletcher Junior Web Developer: Michaela Rizo Attending Provider: Sánchez Holder Contrast/Agitated Saline Contrast/Ag. Saline: Definity Amount: 1.50 ml Administered By: Michaela Rizo Existing IV Access: Yes IV Access Condition: patent with no signs of infiltration Summary 1. Left ventricular chamber dimension is normal. 2. Left ventricular systolic function is normal, estimated at 60-65. 3. There is mildly increased left ventricular wall thickness. 4. The left ventricular diastolic function is grade I diastolic dysfunction. 5. Right ventricular systolic function is normal. 6. There is mild tricuspid valve regurgitation. Left Ventricle Left ventricular chamber dimension is normal. Left ventricular systolic function is normal, estimated at 60-65. There is mildly increased left ventricular wall thickness. The left ventricular diastolic function is grade I diastolic dysfunction. Right Ventricle Right ventricular chamber dimension is normal. Right ventricular systolic function is normal. Left Atria Left atrial chamber dimension is normal. Right Atria Right atrial chamber dimension is normal. Atrial Septum Intact interatrial septum visualized by color flow imaging. Aortic Valve The aortic valve is trileaflet. There is no aortic valve stenosis. There is no aortic valve regurgitation. Pulmonic Valve The pulmonic valve is not well visualized. There is trace pulmonic regurgitation. Mitral Valve There is trace mitral valve regurgitation. Tricuspid Valve There is mild tricuspid valve regurgitation. Pericardium/Pleural There is no pericardial effusion. Inferior Vena Cava Normal inferior vena cava with >50% collapse upon inspiration consistent with normal right atrial pressure, 3 mmHg. Aorta The aortic root size at the sinus of Valsalva is normal. Left Ventricular Outflow Tract Name Value Normal LVOT 2D LVOT Diameter 2.0 cm LVOT Doppler LVOT Peak Velocity 89 cm/s LVOT Peak Gradient 3 mmHg LVOT Mean Gradient 1 mmHg LVOT VTI 15 cm LVOT VTI/AV VTI Ratio 0.7 LVOT Stroke Volume 49 ml LVOT CO 4.0 l/min LVOT CI 2.0 l/min/m2 Pulmonic Valve Name Value Normal RVOT Doppler RVOT Peak Velocity 79 cm/s RVOT Peak Gradient 2 mmHg PV Doppler PV Peak Velocity 107 cm/s PV Peak Gradient 5 mmHg Mitral Valve Name Value Normal MV Diastolic Function MV E Peak Velocity 69 cm/s MV A Peak Velocity 42 cm/s MV E/A 1.6 MV Decel Time (PW) 186 ms MV Annular TDI MV E/e' (Septal) 12.3 MV E/e' (Lateral) 7.4 MV E/e' (Average) 9.8 Tricuspid Valve Name Value Normal Estimated PAP/RSVP RA Pressure 3 mmHg <=5 TV Annular TDI TV Lateral Deneen s' Velocity 11.2 cm/s >=9.5 Aorta Name Value Normal Ascending Aorta Ao Root Diameter (MM) 2.6 cm Ao Root Diam Index (MM) 1.4 cm/m2 Aortic Valve Name Value Normal AV Doppler AV Peak Velocity 136 cm/s AV Peak Gradient 7 mmHg AV Mean Gradient 4 mmHg AV VTI 21 cm AV Area (Cont Eq VTI) 2.4 cm2 >=3.0 AV Area (Cont Eq Marquez) 2.1 cm2 AV DI (Marquez) 0.65 AV Regurgitation 2D LVOT Area 3.3 cm2 Ventricles Name Value Normal LV Dimensions 2D/MM IVS Diastolic Thickness (2D) 1.0 cm 0.6-1.0 LVID Diastole (2D) 3.8 cm 3.8-5.2 LVIW Diastolic Thickness (2D) 1.0 cm 0.6-0.9 LVID Systole (2D) 2.5 cm 2.2-3.5 LVOT Diameter 2.0 cm LV Mass (2D Cubed) 121.90 g 67.00-162.00 LV Mass Index (2D Cubed) 63 g/m2 43-95 Relative Wall Thickness (2D) 0.53 <=0.42 LV Fractional Shortening/Ejection Fraction 2D/MM LV Fractional Shortening (2D) 35 % 27-45 LV EF (2D Teichnadegez) 65 % LV Diastolic Volume (4C MOD) 91 ml LV EF (4C MOD) 66 % LV Diastolic Volume (2C MOD) 87 ml LV EF (2C MOD) 68 % LV Diastolic Volume (BP MOD) 89 ml 46-106 LV Diastolic Volume Index (BP MOD) 46 ml/m2 29-61 LV Systolic Volume (BP MOD) 30 ml 14-42 LV Systolic Volume Index (BP MOD) 15 ml/m2 8-24 LV EF (BP MOD) 67 % 54-74 LV Diastolic Length (4C) 7.5 cm LV Systolic Length (4C) 5.8 cm LV Stroke Volume (4C MOD) 60 ml Atria Name Value Normal LA Dimensions LA Dimension (MM) 3.9 cm 2.7-3.8 LA Volume (4C A-L) 31 ml LA Volume (BP A-L) 35 ml RA Dimensions RA Area (4C) 10.3 cm2 <=18.0 Report Signatures
== END 2024-09-10 15:55 | disposition home or self-care (01) ==
LOC: ANHED 10:54 → ANHIMU 11:23
PROVIDERS: Physician Assistant; Student in an Organized Health Care Education/Training Program; Admitting Provider General Practice; Emergency Provider Emergency Medicine; PCP Nurse Practitioner; Visit Provider Internal Medicine
DX: R00.2 Palpitations (principal); R79.89 Other specified abnormal findings of blood chemistry; R29.818 Other symptoms and signs involving the nervous system; I10 Essential (primary) hypertension; E78.5 Hyperlipidemia, unspecified; R73.03 Prediabetes; K21.9 Gastro-esophageal reflux disease without esophagitis; Z79.84 Long term (current) use of oral hypoglycemic drugs; Z79.899 Other long term (current) drug therapy
CPT/HCPCS: 36415; 71046; 71275; 78452; 80048; 80053; 81003; 83690; 83735; 84439; 84443; 84480; 84484; 85025; 85027; 85380; 85610; 85730; 93005; 93017; 94762; 96360; 99285; A9270; A9502; C8929; G0378; J7120; Q9957; Q9967

== ENCOUNTER 2024-09-25 11:38 | Emergency (ER) | payer OTHER, SELFPAY ==
[2024-09-25 11:50] VITALS: BP 132/82; PULSE 96; RESP 16; TEMP 36.4; O2SAT 99
--- NOTE | 2024-09-25 11:55 | ED_ITS ---
HPI - Female Genitourinary General Chief complaint: Urogenital-Female Stated complaint: UTI SYMPTOMS Source: patient Mode of arrival: ambulatory Limitations: no limitations History of Present Illness HPI Narrative: Patient is a 48-year-old female presenting with complaint of UTI symptoms. Symptoms reported include frequency, urgency, dysuria. Additional symptoms reported include left lower quadrant pain. Symptoms began 2 days ago. Reports history of same symptoms and diagnosed with UTI. Denies concern for STI. Reports partial hysterectomy. 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 No additional complaints. Related Data Home Medications ?Medication ?Instructions ?Recorded ?Confirmed ?Last Taken ?Type metoprolol tartrate 100 mg tablet 100 mg PO DAILY 09/09/24 09/09/24 09/08/24 History Allergies Allergy/AdvReac Type Severity Reaction Status Date / Time No Known Allergies Allergy Verified 09/25/24 12:06 Review of Systems Review of Systems: CONSTITUTIONAL: Denies body aches, fever, chills, or sweats. EYES: Denies visual changes, redness, or discharge. ENT: Denies rhinorrhea, congestion, sore throat, or otalgia. CARDIOVASCULAR: Denies chest pain, palpitations, or edema. RESPIRATORY: Denies cough or dyspnea. GASTROINTESTINAL: Denies abdominal pain, nausea, vomiting, or diarrhea. GENITOURINARY: Denies hematuria. SKIN: Denies rash, itching, or wounds. MUSCULOSKELETAL: Denies back pain, joint pain, or myalgia. NEUROLOGIC: Denies headache, numbness, tingling, or weakness. PSYCH: Denies depression or anxiety. All systems reviewed & are unremarkable except as noted in HPI and below PMFSH Past Medical History Medical History Gastroesophageal reflux disease Hyperlipidemia Genital herpes Hypovitaminosis D Bakers cyst Allergic rhinitis Asthma Hepatic steatosis Pre-diabetes Hypertension Surgical History Surgical History History of tubal ligation History of hysterectomy History of reduction mammoplasty Family History Family History Mother Hypertension Diabetes mellitus Family history of alcoholism Family history of Alzheimer's disease Social History Social History Social History: Surrogate medical decision maker: Mello Dominguez, spouse. Code status: Full code. Smoking status: Never smoker Second hand tobacco smoke exposure: No Alcohol intake: never Substance use: never Substance use type: does not use Do You Feel Safe in your Home?: Yes Lack of Transportation: No Lack of Food: Never True Current Housing: I Have Housing Concerned About Future Housing: No Difficulty Paying Gas/Electric Bills: No Difficulty Paying for Meds: No Currently Unemployed: No Education: Associate Degree Difficulty w/ Childcare or Family Care: No Living arrangements: with family Additional living arrangements comments: Lives with family in [place]. Additional occupation/education comments: [employer] in [place]. Spiritual care concerns: No Exam Narrative: GENERAL: Well-appearing, well-nourished, Obese, and in no acute distress. HEAD: Normocephalic, atraumatic. EYES: EOMI. No redness or drainage. Conjunctivae normal. ENT: Mucous membranes pink and moist. NECK: Normal AROM. Supple. CHEST: No respiratory distress. Clear to auscultation. HEART: Regular rate and rhythm. No murmur appreciated. Normal peripheral pulses. ABDOMEN: Soft nondistended, normal active bowel sounds. Mild left lower quadrant abdominal tenderness with palpation. No rebound. No CVAT. MUSCULOSKELETAL: No bony tenderness. EXTREMITIES: Normal range of motion. No edema. SKIN: Warm, dry, no rash. Capillary refill normal. Normal skin turgor. NEURO: No focal deficits. Alert and oriented x3. Gait steady. PSYCH: Normal affect. No signs of depression or anxiety. Course Course Level of Care: Express Care Visit Vital Signs Vital signs: Vital Signs Temperature 97.5 F L 09/25/24 11:50 Pulse Rate 96 09/25/24 11:50 Respiratory Rate 16 09/25/24 11:50 Blood Pressure 132/82 09/25/24 11:50 Pulse Oximetry 99 09/25/24 11:50 Temperature 97.5 F L 09/25/24 11:50 Pulse Rate 96 09/25/24 11:50 Respiratory Rate 16 09/25/24 11:50 Blood Pressure 132/82 09/25/24 11:50 Pulse Oximetry 99 09/25/24 11:50 MDM - Female Genitourinary Differential Diagnosis Differential diagnosis: Likely urinary tract infection, bacterial vaginosis, trichomoniasis, cervicitis, ovarian cyst, vaginitis, ruptured ovarian cyst and cystitis Medical Records Attestation: I reviewed the patient's medical records. Discharge Plan Discharge Clinical Impression: Dysuria, Abdominal pain, LLQ Patient Disposition: Home Condition: Stable Instructions: Antibiotic Form, Urinary Tract Infection in Women (ED) Additional Instructions: Go straight to ER should your symptoms become worse or should any new symptoms develop Patient Language: Estonian Prescriptions: New nitrofurantoin monohyd/m-cryst [Macrobid] 100 mg capsule 100 mg PO Q12H 5 Days Qty: 10 0RF Rx Instructions: must administer with a meal/food No Action metoprolol tartrate 100 mg tablet 100 mg PO DAILY atorvastatin 20 mg tablet 20 mg PO DAILY Qty: 90 1RF metformin 500 mg tablet 500 mg PO BID Qty: 120 1RF amlodipine 10 mg tablet See Rx Instructions .ROUTE .COMPLEX Qty: 90 1RF Dose Instruction: TAKE 1 TABLET BY MOUTH DAILY Rx Instructions: TAKE 1 TABLET BY MOUTH DAILY Follow-up/Referrals: Dyan,MARC Montgomery [Primary Care Provider] - 09/26/24 Time of Disposition: 12:23
== END 2024-09-25 12:28 | disposition home or self-care (01) ==
PROVIDERS: Emergency Provider Registered Nurse; PCP Nurse Practitioner
DX: R30.0 Dysuria (principal); R10.32 Left lower quadrant pain; I10 Essential (primary) hypertension; R73.03 Prediabetes; E78.5 Hyperlipidemia, unspecified; K21.9 Gastro-esophageal reflux disease without esophagitis; K76.0 Fatty (change of) liver, not elsewhere classified; J45.909 Unspecified asthma, uncomplicated
CPT/HCPCS: 87086; 99213; G0463

== ENCOUNTER 2024-09-25 19:42 | Emergency (ER) | payer OTHER, SELFPAY ==
--- OUTSIDE RECORDS SUMMARY | 2024-09-25 19:45 | XMS_ITS | Clinical Summary ---
Author Organization [facility] Address [address] [place] [address] Phone Care Team Providers Care Steward/Stewardess Second Name Role Phone Provider, Unknown Primary Care Provider Unavaila ble Social History Tobacco Use Types Packs/Day Years Used Date Smoking Tobacco: Never Assessed Comments Unknown Sex and Gender Information Value Date Recorded Sex Assigned at Not on file Legal Sex Female 5:24 PM CDT Gender Identity Not on file Sexual Orientation Not on file Plan of Treatment Not on file Care Teams Steward/Stewardess Second Relationship Specialty Start Date End Date Provider, Unknown UNKNOWN PCP - General 10/12/16
[2024-09-25 19:57] VITALS: BP 141/99; RESP 16; TEMP 36.6; O2SAT 98
--- NOTE | 2024-09-25 21:27 | PC.NURSE ---
Patient seen ambulating out of ED exit at 2100 with steady gait and no signs for concern.
--- OUTSIDE RECORDS SUMMARY | 2024-09-25 22:27 | XMS_ITS | Clinical Summary ---
Author Organization [facility] Address [address] [place] [address] Phone Care Team Providers Care Kinder Teacher Name Role Phone Provider, Unknown Primary Care Provider Unavaila ble Social History Tobacco Use Types Packs/Day Years Used Date Smoking Tobacco: Never Assessed Comments Unknown Sex and Gender Information Value Date Recorded Sex Assigned at Not on file Legal Sex Female 5:24 PM CDT Gender Identity Not on file Sexual Orientation Not on file Plan of Treatment Not on file Care Teams Kinder Teacher Relationship Specialty Start Date End Date Provider, Unknown UNKNOWN PCP - General 10/12/16
--- OUTSIDE RECORDS SUMMARY | 2024-09-25 22:27 | XMS_ITS | Clinical Summary ---
Author Organization [facility] Yessenia Nagy Address [address] [place] [address] Care Team Providers Care Water/Wastewater Project Engineer Name Role Phone Unavailable Primary Care [...] Description 07/05/2024 12:15 PM CDT Office Visit [facility] Oncology and Hematology - [address] [place] [address] Nils De Oliveira MD Chronic [...] 157.5 cm (5' 2) 03/19/2024 1:13 PM SKATE MAKER Body Mass Index 36.1 03/19/2024 1:13 PM SKATE MAKER Plan of Treatment Upcoming Encounters Date Type Department Care Team (Late st Contact Info) Description 01/07/2025 1:00 PM CDT Office Visit [facility] Oncology and Hematology - [id number] [facility] [address] [place] [address] Nils De Oliveira MD [address] [facility] [address] [place] [address] Health Maintenance Due Date Last [...] Vaccine (2023-2 5 season) 2023 05/12/2021, 07/18/2020 DIABETES HBA1C Q 6 MONTHS 06/06/2024 12/05/2023 BREAST CANCER SCREENING 03/01/2025 03/01/20, 03/01/2024 COLORECTAL SCREENING 05/23/2034 05/23/2024 Colorectal Cancer Screening 05/23/2034 HPV VACCINES Aged Out No longer eligi ble based on patient's age to complete this topic Insurance [facility] [id number]
== END 2024-09-25 21:00 | disposition left against medical advice (07) ==
LOC: ANHED 22:26
PROVIDERS: PCP Nurse Practitioner
DX: R30.0 Dysuria (principal)
CPT/HCPCS: 99199

== ENCOUNTER 2025-01-29 10:10 | Emergency (ER) | payer OTHER, SELFPAY ==
--- OUTSIDE RECORDS SUMMARY | 2025-01-15 09:00 | XMS_ITS ---
Author Organization [facility] Address [address] [place], [place] [id number] Care Team Providers Care Assembler Golf Wood Head Name Role Phone Arnaldo Tuttle DO Unavailable [phone] Allergies No Known Allergies Medications Medication SIG [...] Fluconazole 150 MG [facility] RE[facility]AT [facility] 72 HOURS NEEDED Oral; Duration: 9 Days Active Nystatin-Triamcinolone 087680-9.1 UNIT/GM External; Duration: 15 Days Active amLODIPine [...] [address] [place], [place] [address] 01/15/2025 Arnaldo Tuttle Assessments Encounter Date Diagnosis [...] Notes * ELIZONDOFloryB: [birth year] (49 yo F)Acc No.[id number]:01/15/2025 Patient: Johanna OWENS Provider: Nettie Tuttle DO :1975 A ge:49 Y S ex:Female Date:01/15/2025 Address:[address] [place], [place] [id number] Subjective: * Chief Complaints: * * HPI: [...] reduction Comment: Cem 2013 Hx hysterectomy Comment: [facility] . * Medications: T aking valACYclovir HCl [...] 72 HOURS NEEDED Oral , Taking Nystatin-Triamcinolone 923784-8.1 UNIT/GM Ointment External , Taking Albuterol Sulfate [...] Electronic signature of Luis Manuel Tuttle DO, [id number] on 01/29/2025 at 11:48 AM CDT Sign off status: Pending * Provider: Nettie Tuttle DO Date: Generated for Baljit carmichael/Isidra/Arnoldoitting on: 11:48 AM CDT History and Physical Notes * HPI [...]
--- OUTSIDE RECORDS SUMMARY | 2025-01-15 09:30 | XMS_ITS ---
Author Organization [facility] Address [address] [facility] [address] [place], [place] [phone] Care Team Providers Care Financial Director Name Role Phone Elaine Sweeney Unavailable [phone] Encounters Encounter Location Date Provider Diagnosis [facility] [address] [facility] [address] [place], [place] [phone] 01/15/2025 Elaine Sweeney Plan Of Treatment No Information Progress Notes * Flory ELIZONDOB: [birth year] (49 yo F)Acc No.[id number]:01/15/2025 Patient: Johanna OWENS Provider: Lisa Sweeney RD, LD :1975 A ge:49 Y S ex:Female Date:01/15/2025 Address:[address] [place], [place] [address] Subjective: * Chief Complaints: * * Medical History: Objective: * Vitals: Assessment: Plan: * Treatment: * Billing Information: * Visit Code: * Procedure Codes: * Electronic signature of Dariel Dixon RD, LD on 01/29/2025 at 11:48 AM CDT Sign off status: Pending * Provider: Lisa Sweeney RD, LD Date: Generated for Baljit carmichael/Isidra/eTransmitting on: 11:48 AM CDT
--- NOTE | ~2025-01-29 | XR_ITS ---
EXAMINATION: XR foot RT min 3V, 01/29/2025 10:30 CDT HISTORY: injury COMPARISON: No comparisons available. Findings: No acute fracture or malalignment. No significant degenerative changes. Soft tissues unremarkable. Impression: No acute fracture or malalignment. Reviewed, dictated and finalized at location P. Impression: No acute fracture or malalignment.
[2025-01-29 10:21] VITALS: BP 118/77; PULSE 87; RESP 18; TEMP 36.3; O2SAT 100
--- NOTE | 2025-01-29 10:49 | ED.LOWEXIN ---
HPI - Extremity Injury (Lower) General Chief Complaint: Extremity Injury, Lower Stated Complaint: Fall , RT Foot Pain Time Seen by Provider: 01/29/25 10:20 Source: patient Mode of arrival: ambulatory Limitations: no limitations History of Present Illness HPI Narrative: 49 yo F presents with pain to R foot for 4 days. Tripped over bag on floor in hotel room and landed on top of her R foot. Pt states it was dark and could not see. Ambulatory with steady gait. Patient reports no improvement in pain, concern for fracture. All systems reviewed and negative except as noted above. Related Data Home Medications ?Medication ?Instructions ?Recorded ?Confirmed ?Last Taken ?Type metoprolol tartrate 100 mg tablet 100 mg PO DAILY 09/09/24 09/09/24 09/08/24 History Allergies Allergy/AdvReac Type Severity Reaction Status Date / Time No Known Allergies Allergy Verified 01/29/25 10:20 [facility] Past Medical History Medical History Gastroesophageal reflux disease Hyperlipidemia Genital herpes Hypovitaminosis D Bakers cyst Allergic rhinitis Asthma Hepatic steatosis Pre-diabetes Hypertension Surgical History Surgical History History of tubal ligation History of hysterectomy History of reduction mammoplasty Family History Family History Mother Hypertension Diabetes mellitus Family history of alcoholism Family history of Alzheimer's disease Social History Social History Social History: Surrogate medical decision maker: Mello Dominguez, spouse. Code status: Full code. Smoking status: Never smoker Second hand tobacco smoke exposure: No Alcohol intake: never Substance use: never Substance use type: does not use Do You Feel Safe in your Home?: Yes Lack of Transportation: No Lack of Food: Never True Current Housing: I Have Housing Concerned About Future Housing: No Difficulty Paying Gas/Electric Bills: No Difficulty Paying for Meds: No Currently Unemployed: No Education: Associate Degree Difficulty w/ Childcare or Family Care: No Living arrangements: with family Additional living arrangements comments: Lives with family in [place]. Additional occupation/education comments: [employer] in [place]. Spiritual care concerns: No Comments At time of signature, agree with nursing past medical, surgical, social and family history. There is no relevant family history pertinent to the presenting complaint. Exam Narrative: GENERAL: This is a well-nourished, well-developed patient, in no apparent distress. HEAD: normocephalic, atraumatic. EYES: PERRL. Sclera clear/white. Vision is grossly intact. EARS: External ears normal NOSE: External nose normal NECK: Neck supple, non-tender without lymphadenopathy, masses or thyromegaly. CARDIOVASCULAR: Regular rate and rhythm without murmurs, gallops, or rubs. RESPIRATORY: Clear to auscultation. Breath sounds equal bilaterally. No wheezes, rales, or rhonchi. SKIN: warm, Dry, intact with no suspicious lesions or rash, good texture and turgor. NEURO: awake, alert, and oriented to person, place and time. There were no obvious focal neurologic abnormalities. EXTREMITIES: Tenderness to lateral, mid aspect right foot 4th and 5th metatarsals. No foot deformity noted. No significant swelling or bruising. Course Course Level of Care: Express Care Visit Vital Signs Vital signs: Vital Signs Temperature 36.3 C L 01/29/25 10:21 Pulse Rate 87 01/29/25 10:21 Respiratory Rate 18 01/29/25 10:21 Blood Pressure 118/77 01/29/25 10:21 Pulse Oximetry 100 01/29/25 10:21 Oxygen Delivery Room Air 01/29/25 10:21 Temperature 36.3 C L 01/29/25 10:21 Pulse Rate 87 01/29/25 10:21 Respiratory Rate 18 01/29/25 10:21 Blood Pressure 118/77 01/29/25 10:21 Pulse Oximetry 100 01/29/25 10:21 Oxygen Delivery Room Air 01/29/25 10:21 Reviewed MDM - Extremity Injury (Lower) MDM Narrative Medical decision making narrative: x-ray of right foot negative for fracture. Patient placed in Beto wrap. Recommend rest, ice, [id number] pain medications. Differential Diagnosis Differential diagnosis: Likely other ( Foot fracture, foot sprain) Imaging Data My impression: Agree with radiologist Radiologist's impression: EXAMINATION: XR foot RT min 3V, 01/29/2025 10:30 CDT HISTORY: injury COMPARISON: No comparisons available. Findings: No acute fracture or malalignment. No significant degenerative changes. Soft tissues unremarkable. Impression: No acute fracture or malalignment. Discharge Plan Discharge Clinical Impression: Right foot sprain Patient Disposition: Home Condition: Stable Instructions: Foot Sprain (ED) Additional Instructions: The x-ray of your right foot was negative for fracture. Take ibuprofen every 6-8 hours as needed for pain. Wear Beto wrap to compress swelling. Apply ice as needed for pain. Elevate when at rest. Avoid strenuous activities that increase pain to right foot such as running and jumping. Follow-up with your primary care physician if pain is not improving in the next 3-4 weeks. Patient Language: Ghanaian Prescriptions: New ibuprofen 600 mg tablet 600 mg PO Q6H PRN (Reason: pain) Qty: 30 0RF No Action metoprolol tartrate 100 mg tablet 100 mg PO DAILY atorvastatin 20 mg tablet 20 mg PO DAILY Qty: 90 1RF metformin 500 mg tablet 500 mg PO BID Qty: 120 1RF amlodipine 10 mg tablet See Rx Instructions .ROUTE .COMPLEX Qty: 90 1RF Dose Instruction: TAKE 1 TABLET BY MOUTH DAILY Rx Instructions: TAKE 1 TABLET BY MOUTH DAILY Follow-up/Referrals: Dyan,MARC Montgomery [Primary Care Provider, Unknown] Stand Alone Forms: Work/School Release IP Time of Disposition: 10:54
--- OUTSIDE RECORDS SUMMARY | 2025-01-29 11:48 | XMS_ITS | Clinical Summary ---
Author Organization [facility] [employer] Address [address] [place] [address] Care Team Providers Care Engineering Analyst Name Role Phone Farhad Fuchs MD Primary Care Provider [phone] Source Comments [facility],non-owned Affiliates and Associated Physician Practices is amultiple site organization consisting of ambulatory clinics and hospital sitesin [place], [place], [place] and [place]. This disclosure is being madepursuant to the Care Everywhere program and may not contain all information available regarding this patient. 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 Gender Identity Not on file Sexual Orientation Not on file Last Filed Vital Signs Vital Sign Reading Time Taken Comments Blood Pressure 128/76 03/09/2022 10:42 AM SCOURING 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 Pulse 82 01/08/2016 7:54 AM CDT Temperature 36.6 C (97.8 F) 03/09/2022 10:42 AM SCOURING 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 Respiratory Rate 16 01/08/2016 7:54 AM CDT Oxygen Saturation 100% 01/08/2016 7:54 AM CDT Inhaled Oxygen Concentration - - Weight 85.1 kg (187 lb 9.6 oz) 03/09/2022 10:42 AM SCOURING 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 Height 157.5 cm (5' 2) 03/09/2022 10:42 AM SCOURING 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 Body Mass Index 34.31 03/09/2022 10:42 AM SCOURING 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 Plan of Treatment Health Maintenance Due Date Last Done Comments COLOGUARD (AGES 45-75) - COLON CA SCREENING 1977 COLON MONITORING 1977 COLONOSCOPY - COLON CA SCREENING 1977 CT COLONOGRAPHY - COLON CA SCREENING 1977 Colorectal Cancer Screening 1977 FIT - COLON CA SCREENING 1977 FLEX SIG - COLON CA SCREENING 1977 MAMMOGRAM 1977 HIV SCREENING 1992 HEPATITIS C SCREENING 12/12/1995 DTAP/TDAP/TD VACCINES (1 - Tdap) 1996 HEPATITIS B VACCINE (1 of 3 - 19+ 3-dose series) 1996 SCREENING FOR DIABETES 03/09/2022 6, 01/08/2016, 01/07/2016, Additional history exists DEPRESSION SCREENING 04/17/2024 COVID-19 VACCINE ( season) 2024 INFLUENZA VACCINE (#1) 2024 ZOSTER VACCINE (1 of 2) 12/17/2027 [...] LAB - CHEMISTRY ORDERABL ES Final Result [facility] [address] [place] [address] from Last 3 Months or Most Recently Relevant to Health Maintenance Insurance [facility] MEDICAID - OUT OF STATE Advance Directives * Full Code (Latest Code Status on File) Date Activated Date Inactivated Comments 01/07/2016 7:16 PM 01/08/2016 12:15 PM * Full Code Date Activated Date Inactivated Comments 01/07/2016 3:44 PM 01/07/2016 7:16 PM Care Teams Engineering Analyst Relationship Specialty Start Date End Date Farhad Fuchs MD PCP - General 01/15/18
--- OUTSIDE RECORDS SUMMARY | 2025-01-29 11:48 | XMS_ITS | Clinical Summary ---
Author Organization [facility] Arnaldolorenablossom deirdre Shayy Address [address] [place] [address] Care Team Providers Care Acid Wash Operator Name Role Phone Unavailable Primary Care Provider [...] Encounters Date Type Department Care Team Description 01/06/2025 Telephone [facility] Oncology and Hematology - [address]em [address] [facility] [address] [place] [address] Nils De Oliveira MD labs for appt 01/01/2025 External Device Data [facility] ABSTRACTION Provider, Abstract from Last 3 Months Family History Medical [...] 157.5 cm (5' 2) 03/19/2024 1:13 PM 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 Body Mass Index 36.1 03/19/2024 1:13 PM 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 RESPONDER Plan of Treatment Health Maintenance Due Date Last Done Comments DIABETES ANNUAL FOOT EXAM 12/17/1995 DIABETES ANNUAL RETINAL EXAM 12/17/1995 DIABETES MICROALBUMIN ANNUAL SCREEN 12/17/1995 LDL CHOLESTEROL ANNUAL 12/17/1995 DTAP/TDAP/TD VACCINES (1 - Tdap) 1996 HEPATITIS B VACCINES (1 of 3 - 19+ 3-dose series) 1996 FIT-DNA Q 3 years 2022 FIT/FOBT Q 1 year 2022 Flex Sig/CT Colonography Q 5 years 2022 DIABETES HBA1C Q 6 MONTHS 06/06/2024 12/05/2023 INFLUENZA VACCINE (#1) 2024 COVID-19 Vaccine ( season) 2024, 07/18/2020 BREAST CANCER SCREENING 03/01/2025 03/01/2024, 03/01 COLORECTAL SCREENING 05/23/2034 05/23/2024 Colorectal Cancer Screening 05/23/2034 Insurance [facility] [id number]
--- OUTSIDE RECORDS SUMMARY | 2025-01-29 11:49 | XMS_ITS | Data Portability ---
Author Organization [facility] Address [address] [place] [address] [place] [address] Care Team Providers Care Software Design Engineer Name Role Phone ALANGABBY Primary Care Provider [phone] Assessment Encounter Date Assessment Date Assessment LastModified by Organization Details LastModified Time 08/29/2024 08/29/2024 Annual gynecological exam performed. Patient will come back in a year unless there are new symptoms. rick Not available 08/29/2024 10:43:25 Plan of Treatment Reminders Order Date Submit Date Provider Last Modified By Organization Details Last Modified Time Details Appointments None recorded. Lab unlisted lab - [facility] swab plus, DARBY 2024 025 [facility] (Lab), [address], [place], [address], 14:48:24 unlisted lab - [facility] swab plus, DARBY 2024 025 [facility] (Lab), [address], [place], [address], 5 22:41:58 urinalysis, dipstick 2024 025 [email or web address] [place], [address], [address], [place], [address], 15:40:38 culture, urine 2024 025 [facility] (Lab), [address], [place], [address], 5 22:41:58 pap, IG + HR HPV - HPV regardless but if HPV is positive need subtyping 16,18/45 2024 025 [facility] (Lab), [address], [place], [address], 5 16:19:39 urinalysis, dipstick 2023 024 [email or web address] [place], [address], [place], [address], 4 09:48:09 Referral None recorded. Procedures None recorded. Surgeries None recorded. Imaging US, transvagina l 2024 025 [email or web address] [place], [address], [place], [address], 5 20:33:32 Medication Orders nystatin-tr iamcinolone 100,000 unit/gram-0 .1 % topical ointment 2024 025 [facility] #[id number], [address] [facility], [place], [place], [id number], 5 13:00:06 Valtrex 1 gram tablet 2024 025 [facility] #37208, [address] [place], [place], [id number], 5 13:00:27 doxycycline hyclate 100 mg tablet 2024 025 [facility] #[id number], [address] [place], [place], [id number], 5 05:01:24 fluconazole 150 mg tablet 2024 025 [facility] #97653, [address] [facility], [place], [place], [id number], 12:59:31 nystatin-tr iamcinolone 100,000 unit/gram-0 .1 % topical ointment 2024 [facility] #03390, [address], [place], [id number], 12:37:31 Valtrex 1 gram tablet 2024 [facility] #20824, [address], [place], [id number], 15:29:47 fluconazole 150 mg tablet [address] [facility] #[id number], [address], [place], [id number], 15:05:47 Patient TargetsNo targets recorded. Patient InstructionsNo instructions recorded. Reason for Referral None Reported. Results Created Date Observation Date Name Description Value Unit Range Abnormal Flag Note LastModifiedBy Organization Detail LastModifiedTime 12/19/1912/19/2023 CULTU RE: URINE result report SEE RESULT S BELOW Test: Cultu re: Urine Speci men Sourc e: Urine - Clean Catch Speci men Type: Urine Speci men Date: 1050 Resul t Date: 045 Resul t Statu s: Final resul t Abnor mal: No Resul ting Lab: [facility] [address] [facility] [place] [address] Tel: CULTU RE ----- ----- ----- --- No growt h in 1 day (dete ction level of 10,00 0 colon ies / ml.) Not Available [facility] (Lab) [address] [facility], [place], [address], 12/21/2023 06:03:57 12/19/19 24 12/19/2023 urina lysis , dipst ick Leukocytes Trace Not Available [facility] [address], [place], [address], 12/19/2023 09:47:12 12/19/19 24 12/19/2023 urina lysis , dipst ick Nitrite Negati ve Not Available [place] [address], [place], [address], 12/19/2023 09:47:12 12/19/19 24 12/19/2023 urina lysis , dipst ick Urobilinogen Normal Not Available [facility] attila [address], [place], [address], 12/19/2023 09:47:12 12/19/19 24 12/19/2023 urina lysis , dipst ick Protein Negati ve Not Available [place] [address], [place], [address], 12/19/2023 09:47:12 12/19/19 24 12/19/2023 urina lysis , dipst ick pH 5 Not Available [place] [address], [place], [address], 12/19/2023 09:47:12 12/19/19 24 12/19/2023 urina lysis , dipst ick Blood ++ Not Available [place] [address], [place], [address], 12/19/2023 09:47:12 12/19/19 24 12/19/2023 urina lysis , dipst ick Specific [place] 1.030 Not Available [facility] [address], [place], [address], 12/19/2023 09:47:12 12/19/19 24 12/19/2023 urina lysis , dipst ick Ketone Negati ve Not Available [place] [address], [place], [address], 12/19/2023 09:47:12 12/19/19 24 12/19/2023 urina lysis , dipst ick Bilirubin Negati ve Not Available [place] [address], [place], [address], 12/19/2023 09:47:12 12/19/19 24 12/19/2023 urina lysis , dipst ick Glucose Normal Not Available [place] [address], [place], [address], 12/19/2023 09:47:12 12/19/19 24 12/19/2023 urina lysis , dipst ick Color Dark Yellow Not Available [place] [address], [place], [address], 12/19/2023 09:47:12 08/30/19 25 08/29/2024 IMAGE GUIDE D PAP AND HPV REGAR DLESS image guided Pap, HPV regardless of Pap result SEE RESULT S BELOW CASE REPOR T: Cytol ogy Gynec ologi shay Repor t Case: [id number] Autho nina tang Provi georgia: Dorys Kwon, ANUJA Colle cted: 08/29 1447 Order ing Locat ion: [place] [facility] Recei dru: 08/30 0702 First Scree n: Casi Alfonso, CT Rescr een: Ted Raymond, CT Patho logis t: Addison De Guzman MD Speci men: Stacie childs Pap - Image d, Vagin a STATE MENT OF ADEQU ACY: Satis facto ry for evalu ation Corre cted resul t: Previ ously repor asif on 2024 at 1516 CDT. ----- ----- ----- ----- ----- ----- ----- ----- ----- ----- ----- ----- ----- ----- ----- ----- ----- ---- FINAL DIAGN OSIS: Negat prince for Intra epith elial Lesanupam n or Sunita slava (NIL) . Gland ular cells prese nt statu s post hyste recto my. Amend ment elect cynthia bishop by Addison De Guzman MD on 2024 at 1020 CDT ----- ----- ----- ----- ----- ----- ----- ----- ----- ----- ----- ----- ----- ----- ----- ----- ----- ---- Elect cynthia bishop by Addison De Guzman MD on 2024 at 1516 CDT ----- ----- ----- ----- ----- ----- ----- ----- ----- ----- ----- ----- ----- ----- ----- ----- ----- ---- Corre cted kevin t: Karime gold on 2024 at 1516 CDT. HPV RESUL TS: HPV mRNA E6/E7 : No HPV mRNA Detec asif NOTE: This high risk HPV mRNA assay detec ts fourt een high- risk HPV types (16, 18, 31, 33, 35, 39, 45, 51, 52, 56, 58, 59, 66, 68) witho ut diffe renti ation . COMME NT: Per willi cristina, the patie nt has had a hyste recto my. This case was amend ed to remov e the trans forma tion zone compo nent. The diagn osis has been tanner kilgore from endo metri al cells prese nt after age 47 to glan dular cells prese nt statu s post hyste recto my This speci men was revie wed by a Cytot echno logis t and/o r Patho logis t (as indic ated in this repor t) after evalu ation using the Thinp rep Imagi ng Syste m. Andreea cted resul t: Previ ously repor asif on 2024 at 1516 CDT. CLINI SHAY INFOR MATIO N: Menst rual Statu s: LMP (if appli cable ): Clini shay Histo ry/Pr eviou s Pap: Type of Neopl tom (if appli cable ): Signi fican t Clini shay Findi ngs: Other Histo ry: Hormo nate (if appli cable ): PAP EDUCA SUSIE L NOTE: The Pap Test is a scree naz test with an inher ent false negat prince rate. Liqui d-bas ed sampl ing may decre ase, but will not elimi jennifer, false negat prince resul ts. A negat prince resul t does not precl ude the prese nce and/o r devel opmen t of disea se, since the prese nce of abnor mal cells in the sampl e depen ds on the locat ion of the lesio n and sampl ing techn ique. Christine nued regul ar scree naz is the best metho d of cance r preve ntion . If repor asif cytol ogic findi ng do not corre late with physi shay and/o r histo rical findi ngs, furth er inves tigat ion is recom ayush d, as clini mae huff nted. Andreea cted resul t: Previ ously repor asif on 2024 at 1516 CDT. Not Available [facility] (Lab) [address], [place], [address], 09/05/2024 11:24:59 09/24/19 25 09/23/2024 WOMEN 'S HEALT H SWAB PLUS, DARBY bacterial vaginosis (bv), tma Negati ve negati ve Not Available [facility] (Lab) [address], [place], [address], 09/24/2024 22:41:58 09/24/19 25 09/23/2024 WOMEN 'S HEALT H SWAB PLUS, DARBY connor species, tma Negati ve negati ve Not Available [facility] (Lab) [address] [place], [address], 09/24/2024 22:41:58 09/24/19 25 09/23/2024 WOMEN 'S HEALT H SWAB PLUS, DARBY connor glabrata, tma Negati ve negati ve Not Available [facility] (Lab) [address] [facility], [place], [address], 09/24/2024 22:41:58 09/24/19 25 09/23/2024 [facility] DARBY trichomonas vaginalis, tma Negati ve negati ve Not Available [facility] (Lab) [address] [place], [address], 09/24/2024 22:41:58 09/24/19 25 09/23/2024 [facility], DARBY chlamydia trachomatis, PCR Negati ve negati ve Not Available [facility] (Lab) [address] [place], [address], 09/24/2024 22:41:58 09/24/19 25 09/23/2024 [facility], DARBY neisseria gonorrhoeae, PCR Negati ve negati ve Bacte rial vagin osis detec ts the follo wing bacte alyssa assoc iated with bacte rial vagin osis (BV): Lacto bacil marge (L. gasse ri, L. crisp atus and L. jense maryan), Gardn erell a vagin paco, and Atopo bium vagin ae. A singl e quali tativ e resul t is repor asif base on instr ument softw are to deter mine BV posit prince or negat prince statu s. The Annette da speci es group tests for C. albic ans, C. tropi calis , C. parap mayelin is, C. dubli patricio is. Testi ng is perfo rmed using the Trans cript ion Media asif Ampli ficat ion metho d. Tests for Annette da glabr dorothy, Trich omona s vagin paco, Chlam ydia trach omati s, and Neiss eria gonor rhoea e are also inclu ded in this panel . Not Available [facility] (Lab) [address] [facility], [place], [address], 09/24/2024 22:41:58 09/24/19 25 09/23/2024 CULTU RE: URINE result report SEE RESULT S BELOW Test: Cultu re: Urine Speci men Sourc e: Urine Voide d Speci men Type: Urine Speci men Date: 025 1711 Resul t Date: 20247 Resul t Statu s: Final resul t Abnor mal: No Resul ting Lab: [facility] [address] [facility] [place] [address] Tel: CULTU RE ----- ----- ----- --- No growt h in 1 day (dete ction level of 10,00 0 colon ies / ml.) Not Available [facility] (Lab) [address], [place], [address], 09/24/2024 22:41:58 09/24/19 25 09/23/2024 urina lysis , dipst ick Leukocytes Trace Not Available Stephen riddle [address], [place], [address], 09/23/2024 15:39:27 09/24/19 25 09/23/2024 urina lysis , dipst ick Nitrite - Not Available [address] [place], [address], 09/23/2024 15:39:27 09/24/19 25 09/23/2024 urina lysis , dipst ick Urobilinogen Normal Not Available Nick aiken [address], [place], [address], 09/23/2024 15:39:27 09/24/19 25 09/23/2024 urina lysis , dipst ick Protein + Not Available [place] [address], [place], [address], 09/23/2024 15:39:27 09/24/19 25 09/23/2024 urina lysis , dipst ick pH 5 Not Available [place] [address], [place], [address], 09/23/2024 15:39:27 09/24/19 25 09/23/2024 urina lysis , dipst ick Blood trace Not Available [place] [address], [place], [address], 09/23/2024 15:39:27 09/24/19 25 09/23/2024 urina lysis , dipst ick Specific [place] 1.050 Not Available [facility] [address], [place], [address], 09/23/2024 15:39:27 09/24/19 25 09/23/2024 urina lysis , dipst ick Ketone - Not Available [place] [address], [place], [address], 09/23/2024 15:39:27 09/24/19 25 09/23/2024 urina lysis , dipst ick Bilirubin - Not Available [facility] sher[address], [place], [address], 09/23/2024 15:39:27 09/24/19 25 09/23/2024 urina lysis , dipst ick Glucose Normal Not Available [place] [address], [place], [address], 09/23/2024 15:39:27 09/24/19 25 09/23/2024 urina lysis , dipst ick Appearance clear Not Available [facility] janessa [address], [place], [address], 09/23/2024 15:39:27 09/24/19 25 09/23/2024 urina lysis , dipst ick Color dark yellow Not Available [place] [address], [place], [address], 09/23/2024 15:39:27 12/24/19 25 12/23/2024 WOMEN 'S HEALT H SWAB PLUS, DARBY bacterial vaginosis (bv), tma Negati ve negati ve Not Available [facility] (Lab) [address], [place], [address], 12/24/2024 14:48:24 12/24/19 25 12/23/2024 WOMEN 'S HEALT H SWAB PLUS, DARBY connor species, tma Negati ve negati ve Not Available [facility] (Lab) [address], [place], [address], 12/24/2024 14:48:24 12/24/19 25 12/23/2024 WOMEN 'S HEALT H SWAB PLUS, DARBY connor glabrata, tma Negati ve negati ve Not Available [facility] (Lab) [address] [place], [address], 12/24/2024 14:48:24 12/24/19 25 12/23/2024 WOMEN 'S HEALT H SWAB PLUS, DARBY trichomonas vaginalis, tma Negati ve negati ve Not Available [facility] (Lab) [address] [place], [address], 12/24/2024 14:48:24 12/24/19 25 12/23/2024 WOMEN 'S HEALT H SWAB PLUS, DARBY chlamydia trachomatis, PCR Negati ve negati ve Not Available [facility] ([facility]) [address] [place], [address], 12/24/2024 14:48:24 12/24/19 25 12/23/2024 WOMEN 'S HEALT H SWAB PLUS, DARBY neisseria gonorrhoeae, PCR Negati ve negati ve Bacte rial vagin osis detec ts the follo wing bacte alyssa assoc iated with bacte rial vagin osis (BV): Lacto bacil marge (L. gasse ri, L. crisp atus and L. jense maryan), Gardn erell a vagin paco, and Atopo bium vagin ae. A singl e quali tativ e resul t is repor asif base on instr ument softw are to deter mine BV posit prince or negat prince statu s. The Annette da speci es group tests for C. albic ans, C. tropi calis , C. parap mayelin is, C. dubli niens is. Testi ng is perfo rmed using the Trans cript ion Media asif Ampli ficat ion metho d. Tests for Annette da glabr dorothy, Trich omona s vagin paco, Chlam ydia trach omati s, and Neiss eria gonor rhoea e are also inclu ded in this panel . Not Available [facility] (Lab) [address] [facility], [place], [address], 12/24/2024 14:48:24 10/02/19 25 10/01/2024 US, trans vagin al No observ ation record ed. [email or web address] [place] [address], [place], [address], 10/01/2024 17:12:56 10/02/19 25 10/01/2024 US, trans vagin al No observ ation record ed. [email or web address] [address] [facility], [place], [address], 10/08/2024 18:29:48 Result Notes None recorded. Problems Name Problem SNOMED Code Status Onset Date Resolution Date Notes Provider Name and Address Organization Details Recorded Time Hyperten sive disorder 78790462 Completed 201501/14/2021 Essential (primary) hypertens ion;Recor ded Elsewhere : No Locati on: [facility] So urce: EHR Chron ic: N Practic e ID: [id number] Bill able Time: 01:45:00 PM Ashley Hunter [facility] 14:24:18 Body mass index 30+ - obesity [id number] Completed 201501/14/2021 Body mass index (BMI) 36.0-36.9 , adult;Rec orded Elsewhere : No Locati on: [facility] So urce: EHR Chron ic: N Practic e ID: 0001 Bill able Time: 01:45:00 PM Ashley Hunter [facility] 14:24:13 Itching [id number] Completed 201601/14/2021 Pruritus, unspecifi ed;Record ed Elsewhere : No Locati on: [facility] So urce: EHR Chron ic: N Practic e ID: [id number] Bill able Time: 10:30:00 AM Ashley Hunter [facility] 14:24:[address] Concept Completed 201601/14/2021 Encntr for general adult medical exam w/o abnormal findings; Recorded Elsewhere : No Locati on: [facility] So urce: EHR Chron ic: N Practic e ID: 0001 Bill able Time: 02:30:00 PM Ashley Hunter [facility] 14:24:24 Dysuria [id number] Completed 201601/14/2021 Dysuria;P ractice ID: [id number] Ashley Hunter [facility] 14:24:17 Acute vaginiti s 53153922 Completed 201601/14/2021 Acute vulvovagi nitis;Rec orded Elsewhere : No Locati on: [facility] So urce: EHR Chron ic: N Practic e ID: 0001 Bill able Time: 01:00:00 PM Ashley Hunter null, [facility] 14:24:12 Pelvic and perineal pain 997431595 Completed 201701/14/2021 Pelvic and perineal pain;Kal rded Elsewhere : No Locati on: [facility] So urce: EHR Chron ic: N Practic e ID: 0001 Bill able Time: 11:30:00 AM Ashley headley [facility] 14:24:23 Vaginola bial hernia Completed 201701/14/2021 Other specified noninflam matory disorders of vagina;Re corded Elsewhere : No Locati on: [facility] So urce: EHR Chron ic: N Practic e ID: 0001 Bill able Time: 11:30:00 AM Ashley Hunter [facility] 14:24:29 Syphilis test finding [id number] Completed 201701/14/2021 Encntr screen for infection s w sexl mode of transmiss ;Recorded Elsewhere : No Locati on: [facility] So urce: EHR Chron ic: N Practic e ID: 0001 Bill able Time: 11:30:00 AM Ashley Hunter [facility] 14:24:27 Infectio n screenin g Completed 201701/14/2021 Encounter for screening for oth infec/par astc diseases; Recorded Elsewhere : No Locati on: [facility] So urce: EHR Chron ic: N Practic e ID: 0001 Bill able Time: 11:30:00 AM Ashley Hunter [facility] 14:24:20 Connor infectio n of genital region Completed 201801/14/2021 Candidal vulvovagi nitis;Rec orded Elsewhere : No Locati on: [facility] So urce: EHR Chron ic: N Practic e ID: 0001 Bill able Time: 04:00:00 PM Ashley Hunter [facility] 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 14:24:26 Problem Notes None recorded. Procedures Surgical History Date Name Laterality Status Provider Name and Address Organization Details Recorded Time 08/30/19 25 Date of Last Pap Smear completed [facility] 12/23/2024 12:37:47 08/28/19 25 Date of Last Mammogram completed [facility] 08/29/2024 10:47:15 04/22/19 25 colonoscopy completed [facility] 08/29/2024 10:51:38 03/01/20 24 biopsy of breast completed [facility] 08/29/2024 10:52:59 04/17/19 17 Breast reduction completed Ashley [facility] 01/14/2021 14:57:49 04/17/19 14 Partial Hysterectomy completed Mariana Zaragoza [facility] 11/09/2020 09:42:54 Imaging Results None recorded. Procedure Notes None recorded. Medical Equipment None Reported. Allergies No known drug allergies Medications Name Sig Start Date Stop Date Status Note LastModified by Organization Details LastModified Time atorvasta tin 40 mg tablet take 1 tablet by oral route every day 01/14 completed Prescrib ed Elsewher e: Yes Loca tion: [facility] M odify By: [email or web address] Encount er DateTime : 04/20/19 19 04:00:00 PM Not Available Not Available Not Available metformin 500 mg tablet TAKE 1 TABLET BY MOUTH TWICE DAILY active Not Available Not Available No t Available terconazo le 0.4 % vaginal cream insert 1 applicat orful by vaginal route every day for 7 days at bedtime 04/26 completed Prescrib jame Sinclair e: No Locat ion: Prateek whitaker [facility] Nettie odify By: karina bolden DateTime : 04/20/19 [...] MOUTH NOW. REPEAT IN 72 HOURS NEEDED active Not Available Not Available No t Available benzonata te 200 mg capsule TAKE ONE CAPSULE BY MOUTH THREE TIMES DAILY NEEDED 08/29 completed Not Available Not Available Not Available valacyclo vir 1 gram tablet TAKE 1 TABLET BY MOUTH EVERY DAY WITH MEALS FOR 5 DAYS active Not Available Not Available No t Available hydrocodo ne 5 mg-acetam inophen 325 [...] Not Available valacyclo vir 500 mg tablet take 1 tablet by oral route every day suppress prince therapy 09/23 completed Not Available Not Available Not Available [...] e: No Locat ion: Prateek whitaker [facility] odify By: nhung bolden DateTime : 09/04/19 01:16:23 PM Not Available Not Available Not Available meloxicam 7.5 mg tablet active Not Available Not Available Not Available amoxicill in 875 mg tablet TAKE 1 TABLET BY MOUTH EVERY 12 HOURS FOR 10 DAYS 01/14 completed Not Available Not Available Not Available Metrogel Vaginal 0.75 % (37.5 mg/5 gram) insert 1 applicat orful by vaginal route every day at bedtime for 5 nights 09/07 completed Prescrib ed Elsewher e: No Locat ion: [facility] odify By: mike prasad DateTime : 09/04/19 [...] mcg/actua tion aerosol inhaler INHALE 2 PUFFS INTO THE LUNGS EVERY 6 HOURS NEEDED FOR WHEEZING OR SHORTNES S OF BREATH active Not Available Not Available No t Available ketoconaz ole 2 % topical cream apply by topical route every day to the affected area(s) 04/20 completed Prescrib ed Makaylaher e: No Locat ion: [facility] odify By: [email or web address] Encount er DateTime : 02/09/20 17 01:00:00 PM Not Available Not Available Not Available fluticaso ne propionat e 50 mcg/actua tion nasal spray,parker pension 11/23 completed Not Available Not Available Not Available metformin ER 500 mg tablet,ex tended release 24 hr take 2 tablet by oral route every day with the evening meal 02/11 completed Prescrib ed Elsewher e: Yes Loca tion: [facility] odify By: ron prasad DateTime : 10/24/19 18 11:30:00 AM Not Available Not Available Not Available Diflucan 200 mg tablet Take 1 tablet every day by oral route as directed for 1 day. 06/09 completed Not Available Not Available Not Available doxycycli ne hyclate 100 mg tablet Take 1 tablet twice a day by oral route for 7 days. 01/06 completed Not Available Not Available Not Available [...] Prescrib ed Elsewher e: Yes [facility] By: elizabeth wesley DateTime : 10/30/19 16 01:45:00 PM Not [...] Prescrib ed Elsewher e: Yes Loca tion: [facility] odify By: elizabeth Merirll ter DateTime : 10/30/19 16 01:45:00 PM Not Available Not Available Not Available nitrofura ntoin monohydra te/macroc rystals 100 mg capsule TAKE 1 CAPSULE BY MOUTH EVERY 12 HOURS FOR 5 DAYS 12/23 completed Not Available Not Available Not Available Taberg Allergy and Sinus 2.65 % nasal spray [...] Updated DateTime 08/29/2024 158.75 cm 35.8 kg/m2 70425.88 g 156/89 mm[Hg] Cata Lugo [place] [facility] 08/29/2024 10:44:12 Date Recorded Body height Body mass index (BMI) Body weight Systolic And Diastolic Provider Name and Address Organization Details Last Updated DateTime 09/23/2024 158.75 cm 35.3 kg/m2 71785.1 g 117/80 mm[Hg] [facility] 09/23/2024 15:05:38 Date Recorded Body height Body mass index (BMI) Body weight Systolic And Diastolic Provider Name and Address Organization Details Last Updated DateTime 12/23/2024 158.75 cm 35.5 kg/m2 20294.7 g 141/88 mm[Hg] [facility] 12/23/2024 12:36:55 Social History Question Answer Notes LastModified by Organizat ion Details LastModified Time Tobacco Smoking Status Never Smoker Ashley Hunter [facility] 01/14/2021 14:27:15 Do You Have An Advance Directive? No [email or web address] Information n ot available 12/23/2024 How Many Years Have You Consumed Alcohol? 0 [email or web address] Information not available 12/23/2024 Are You Blind Or Do You Have [...] Following? REGULAR Information n ot available 01/14/2021 What Is The Highest Grade Or Level Of School You Have Completed Or The Highest Degree You Have Received? [id number] [email or web address] Information not available 12/23/2024 Do You Use Protection During Sex? Usually [email or web address] Information not available 12/23/2024 Do You Use Your Seat Belt Or Car Seat Routinely? Yes Information not available 01/14/2021 Do You Have Smoke And Carbon Monoxide Detectors In Your Home? Yes Information not available 01/14/2021 How Much Tobacco Do You Smoke? No [email or web address] Information not available 12/23/2024 Do You Use Sunscreen Routinely? Yes Information not available 01/14/2021 Have You Used IV Drugs? No Information not available 12/23/2024 Do You Have Difficulty Walking Or Climbing Stairs? No Information not available 07/29/2021 Sex: Unknown Functional Status Question Answer Note LastModified by Organizat ion Details LastModified Time Do you use any illicit or recreational drugs? No Information not available 01/14/2021 What is your level of alcohol consumption? None [email or web address] Information not available 12/23/2024 Are you able to walk independently without assistance or assistive devices? [email or web address] Information not available 01/14/2021 Are you able to care for yourself independently? Yes Information not available 07/29/2021 What is your occupation? [email or web address] Information not available 12/23/2024 Do you have difficulty dressing, bathing, grooming, or toileting? No Information not available 07/29/2021 What is your exercise level? None [email or web address] Information not available 12/23/2024 Mental Status Question Answer Note LastModified by Organization D etails LastModified Time Do you feel stressed (tense, restless, nervous, or anxious, or unable to sleep at night)? [id number] Information not available 01/14/2021 Family History Relationship Description Onset Age of this Age Resolved Age Notes LastModified by Organization Details LastModified Time Mother Diabetes mellitus Not available 2020 14:26:48 Mother Malignant neoplasm of colon [email or web address] Not available 2024 10:49:52 Notes:Mother: Diabetes gordo roshni Medical History Condition Response Allergies (Food, seasonal, [...] Reflux (GERD) N History of abnormal pap Y Cancer N Stroke N Varicosities N Neurologic/Epilepsy [...] Last Mammogram 08/27/2024 Date of LMP 08/24/2013 N Was last menstrual period normal N STIs/STDs Y HPV Vaccine N Duration of Flow (days) 5 Current Control Method Hysterectom y Date of Last Colonoscopy Frequency of Cycle (Q days) 5 Sexually Active? Y Menses Monthly N Date of DEXA bone scan Age of first menstrual cycle 18 Date of Last Pap Smear 08/29/2024 Sexual Problems? N N Obstetrics History GPAL:G 5 P 4 0 0 4 Type Value Full Term 4 Living 4 Total 5 Past Encounters Encounter ID Performer Location Encounter Start Date Encounter Closed Date Diagnosis/Indication Diagnosis SNOMED-CT Code Diagnosis ICD10 Code Diagnosis IMO Codes Diagnosis Note [id number] BRIEN [facility] [address] [address] 01/14/2021 14:25:42 01/14/2021 16:34:13 Gynecologic examination 45727057 Z01.419 Suggested Calcium with Vitamin D 1200-1500m g daily. Patient advised to get an annual flu shot in the fall and she could obtain at [facility] or [facility] take care clinic. Also to obtain TDap vaccinatio [...] std screenmamm o ordered Pain in pelvis 79987784 R10.2 Likely pain she is feeling is from left hip/pirifo rmis issues that are aggravatin g her lower back and sciatic nerve. However, some pain on left adnexal area so will ensure no issues & update TVUS.She is due to start PT next week for her back/sciat ic nerve pain.Heat/ ice/biofre elder [id number] Yosi Mercer MD [place] [address] [address] 07/05/2021 13:45:37 07/05/2021 14:56:52 Vaginitis 87410597 N76.0 this patient is a 45-year-ol d [...] antifungal . She will follow-up as needed. [id number] BRIEN Reynolds [place] [facility] [address] [address] 07/29/2021 16:12:28 07/29/2021 17:35:48 Venereal disease screening 842941892 Z11.3 Sexually t ransmitted infectious disease 4134964 A64 Urinary symptoms 7515061 08 R39.9 Acute urin swathi tract infection 665974856 N39.0 Urinary burning, pain, and frequency for [...] patient was 35 minutes. Pain in pelvis 45830856 R10.2 [id number] Yosi Mercer MD [place] [address],[place] [address] 08/04/2021 18:01:45 08/04/2021 18:41:06 Pain in pelvis 92075244 R10.2 [id number] Dorys Kwon [facility] [address],[place] [address] 08/09/2021 10:02:37 08/09/2021 10:38:44 Pain in pelvis 02810387 R10.2 Blood in urine 15901572 R31.9 [id number] [facility] [address] [address] 02/11/2022 15:52:12 02/11/2022 16:50:19 Urinary symptoms 380600436 R39.9 Chronic in terstitial cystitis 777710885 N30.10 Suspect CIC on exam, Hx & [...] counseling and review of plan of care. [id number] Rhonda Alarcon [facility] [address],[place] [address] 11/23/2022 18:01:45 11/24/2022 16:40:09 Genital herpes simplex 11697983 A60.9 Suspect HSV outbreakHx of HSV in the past but no outbreaks for a very long time.Rx sentDeclin ed need for std screen Counseled on medication R/B's, Most common side effects, & use. All questions were answered to patient satisfacti on. Labial cyst 620068857 N9 0.7 We agreed to treat labial cyst today.Rx sentCounse led on medication R/B's, Most common side effects, & use. All questions were answered to patient satisfacti on. Return if any further issues or persists. Time spent in visit is a total of 20mins with at least 50% of visit consisting of counseling and review of plan of care. Vaginitis 40493514 N76.0 Suspect yeast on examRx sent Counseled on medication R/B's, Most common side effects, & use. All questions were answered to patient satisfacti on. [id number] Rhonda Alarcon [facility] [address],[place] [address] 12/07/2022 16:10:48 12/07/2022 17:41:11 Genital herpes simplex 31974881 A60.9 Wants to do suppressiv e therapy as previously discussed. Rx sent Counseled on medication R/B's, Most common side effects, & use. All questions were answered to patient satisfacti on. Time spent in visit is a total of 20 mins with at least 50% of visit consisting of counseling and review of plan of care. Vaginitis 33736539 N76.0 RF sent for PRN use [id number] BRIEN Reynolds [place] [address],[place] [address] 06/09/2023 10:34:56 06/09/2023 11:43:31 Vaginitis 49223181 N76.0 vaginitis/ STI panel sentsuspec t BV/yeastrx sent, r/b/a reviewedvu lvar care guidelines discussedR TC for WWE or sooner if needed Time spent in visit is a total of 22mins with at least 50% of visit consisting of counseling and review of plan of care. Venereal d isease screening 738835639 Z11.3 [id number] Yosi Mercer MD [place] [address],[place] [address] 12/19/2023 09:28:17 12/19/2023 09:56:41 Urinary symptoms 941730731 R39.9 [id number] Dorys Kwon [facility] [address],[place] [address] 08/29/2024 10:33:32 08/29/2024 13:34:20 Gynecologic examination 37989115 Z01.847 8778380 WWEPap - done todaySTI screen - declinedMa mmogram - UTDColon cancer screening [facility] - [facility]/PCPRTC in 1 yr or [...] All questions have been answered. Acute vaginitis 43284037 N76.0 83982 rx sent for yeastvulva r care guidelines reviewed [id number] BRIEN Reynolds [place] [address],[place] [address] 09/23/2024 14:41:19 09/24/2024 13:31:16 Vulval irritation 548670366 N90.89 7052309 vaginitis/ STI panel sentvulvar care guidelines discussedr x sent for nystatin-t riamcinolo ne Genital he rpes simplex 16230285 A60.00 08730369 rx sent for valtrex, use with symptoms of outbreak Time spent in visit is a total of 20 mins with at least 50% of visit consisting of counseling and review of plan of care. Increased frequency of urination 054451827 R35.0 45187 UA done, cx sent [id number] Yosi Mercer MD [place] [address],[place] [address] 10/01/2024 12:08:30 10/01/2024 13:06:58 Pain in pelvis 15080053 R10.2 [id number] BRIEN Reynolds [place] [address],[place] [address] 12/23/2024 12:20:58 12/24/2024 09:44:28 Vulval irritation 975507266 N90.89 7704340 Furuncle of vulva 609498 006 N76.4 636035 Acute vaginitis 66149870 N76.0 13308 vaginitis panel sentvulvar care guidelines discussedr x sent for yeast , r/b/a reviewedRT C if symptoms persist past treatment Genital he rpes simplex 97940972 A60.00 refills sent for valtrex, use with symptoms of outbreak BP precaution s discussed Time spent in visit is a total of 25 mins with at least 50% of visit consisting of counseling and review of plan of care. Health Concerns Section Related Observation LastModified by Organization Detai ls LastModified Time None Recorded Concern Status LastModified by Organization Details LastModified Time None Recorded Advance Directives Directive N: Payers Insurance Date Sequence Insurance Name Policy Number Policy Rivera Covered Member ID Rivera Member ID Guarantor Name 09/17/2024 1 [employer] [facility] Roshonda L Dominguez [id number] Roshonda L Dominguez 09/17/[address] [facility] Roshonda L Dominguez [id number] Roshonda L Dominguez 09/17/2024 1 [facility] [id number] Roshonda L Dominguez [id number] PU [id number] PU Roshonda L Dominguez 09/17/2024 1 [facility] (MEDICAID HMO) [id number] Roshonda Dominguez [id number] Roshonda L Dominguez 01/14/2021 1 *SELF PAY* Ro joel L Dominguez 09/17/2024 3 [employer] [facility] [employer] [facility] PRIOR TO . [id number] Roshonda L Dominguez [id number] Roshonda L Dominguez 09/17/2024 2 [place] [facility] Roshonda Dominguez [id number] Roshonda L Dominguez 12/23/2024 1 [facility] [id number] Roshonda L Dominguez [id number] PU Roshonda L Dominguez Notes Date Note Type Note Provider Name and Address Organization Details Recorded Time 5 text/htm l Annual GYNReported by PatientGenitourinary symptomsFor vagina, patient reportswhiteandvaginal itching. For urinary symptoms, patient reportsno hematuriaandno incontinence. For vulva, patient reportsno genital lesion.Breast symptomsFor breast, patient reportsno breast pain,no breast lump, andno nipple discharge.ContraceptionFor current contraception, (hyst).Endocrine symptomsFor sexual complaints, patient reportsno sexual complaints,no pain during intercourse, andnormal libido. For menopausal symptoms, patient reportsno menopausal symptomsandnormal vaginal lubrication.Psychological symptomsFor psychological symptoms, patient reportsno depression,no anxiety, andno pmdd.Preventative measuresFor preventive measures, patient reportsencourage self breast examination,encourage regular exercise,encourage no tobacco use, andencourage regular mammograms starting age [age]yo wweh/o hyst for AUB/fibroidsh/o abnormal paps prior to hyst requiring procedure per ptmammogram UTD olonoscopy UTD vaginal itching/discharge BRIEN Reynolds [address], [place], [address], [facility] 08/29/2024 13:29:18 5 text/htm l 48yopresents for evaluation of vulvar irritationnoticed symptoms after using iniguez for hair removalfrequent urination over the past 2 wksh/o genital HSV, outbreaks a few times per yr neg dysurianeg n/v/fneg pelvic painneg d/c, odors, itching neg lesions, neg d/c or odors, neg pelvic pain BREIN Reynolds [address], [place], [address], [facility] 09/24/2024 12:08:25 5 text/htm l 49yoPresents with c/o vulvar irritation. HSV outbreak started 5 days ago, currently taking valtrex. Very itchy/sore, scratched one of the lesion and it has been tender ever since.no new partnersneg n/v/fneg flu - like symptomsneg d/c, odors BRIEN Reynolds [address], [place], [address], [facility] 12/24/2024 09:20:43 OBGyn Episode Ob Episode Information Episode Created Date Number of Fetuses Patient Bloodtype Patient rh Status Prepregnancy Weight lbs Domestic Partner Domestic Partner Phone Father Name [employer] Developer Status 11/10/19 21 1 CLOSED Fetus Data First Name Last Name Admitted to NICU Weight (g) Sex Living Outcome Pediatric Complications Fetus ID Race Codes Race Delivery Type 2834.95 M Full Term 61496 Vaginal Delivery Daniel Calculation Initial Daniel Date [...] Domestic Partner Domestic Partner Phone Father Name [employer] Developer Status 11/10/19 21 1 CLOSED Fetus Data First Name Last Name Admitted to NICU Weight (g) Sex Living Outcome Pediatric Complications Fetus ID Race Codes Race Delivery Type 3175.14 4 F Full Term 94492 Vaginal Delivery Daniel Calculation Initial Daniel Date [...] Domestic Partner Domestic Partner Phone Father Name [employer] Developer Status 11/10/19 21 1 CLOSED Fetus Data First Name Last Name Admitted to NICU Weight (g) Sex Living Outcome Pediatric Complications Fetus ID Race Codes Race Delivery Type 2834.95 M Full Term 59553 Vaginal Delivery Daniel Calculation Initial Daniel Date [...] Domestic Partner Domestic Partner Phone Father Name [employer] Developer Status 11/10/19 21 1 CLOSED Fetus Data First Name Last Name Admitted to NICU Weight (g) Sex Living Outcome Pediatric Complications Fetus ID Race Codes Race Delivery Type 2976.47 0704 M Full Term 21327 Vaginal Delivery Daniel Calculation Initial Daniel Date [...]
--- OUTSIDE RECORDS SUMMARY | 2025-01-29 11:49 | XMS_ITS | Clinical Summary ---
Author Organization [facility] Address [address] [place] [address] Phone Care Team Providers Care Ditch Inspector Name Role Phone Provider, Unknown Primary Care Provider Unavaila ble Social History Tobacco Use Types Packs/Day Years Used Date Smoking Tobacco: Never Assessed Comments Unknown Sex and Gender Information Value Date Recorded Sex Assigned at Not on file Legal Sex Female 5:24 PM CDT Gender Identity Not on file Sexual Orientation Not on file Plan of Treatment Not on file Care Teams Ditch Inspector Relationship Specialty Start Date End Date Provider, Unknown UNKNOWN PCP - General 10/12/16
--- OUTSIDE RECORDS SUMMARY | 2025-01-29 11:49 | XMS_ITS | Clinical Summary ---
Author Organization [facility] [address] [facility] [address] Address [address] [place] [address] Care Team Providers Care Project Control Manager Name Role Phone Unavailable Primary Care Provider Unavailabl e Allergies Active Allergy Reactions Criticality Noted Date Comments Lisinopril Swelling Medium 03/09/2022 Medications aspirin 81 mg chewable tablet chew 1 tablet by oral route every day 0 0 09/03/19 16 Active losartan (COZAAR) 25 mg tablet take 1 tablet by oral route every day 90 3 08/03/19 16 Active PARoxetine (PAXIL) 40 mg tablet take 1 tablet by oral route every day 30 3 02/09/20 16 Active metoprolol (LOPRESSOR) 100 mg tablet take 1 tablet by oral route every day with meals 30 3 02/12/20 16 Active albuterol HFA (PROVENTIL HFA,VENTOLIN HFA,PROAIR HFA) 90 mcg/actuation inhaler Inhale 2 puffs 4 (four) times a day 11/10/19 24 Active cholecalcifero l (VITAMIN D-3) 2000 unit tablet Take 1 tablet (2,000 Units total) by mouth daily Active ferrous sulfate 325 mg (65 mg of elemental iron) tablet Take 1 tablet (325 mg total) by mouth 2 (two) times a day 07/06/19 25 Active fesoterodine ER (TOVIAZ) 4 mg tablet extended release 24 hr Take 1 tablet (4 mg total) by mouth daily 03/09/20 22 Active fluconazole (DIFLUCAN) 150 mg tablet take 1 tablet by mouth now, repeat in 7 days if needed 08/30/19 25 Active hydroCHLOROthi azide (HYDRODIURIL) 25 mg tablet hydrochlorothiazide 25 mg tablet TAKE 1 TABLET BY MOUTH DAILY Active meloxicam (MOBIC) 7.5 mg tablet Take 1 tablet (7.5 mg total) by mouth daily 03/20/20 24 Active nitrofurantoin monohydrate (MACROBID) 100 mg capsule TAKE 1 CAPSULE BY MOUTH EVERY 12 HOURS FOR 5 DAYS Active nystatin-triam cinolone ointment APPLY TOPICALLY TO THE AFFECTED AREA TWICE DAILY FOR 5 DAYS Active omeprazole (PriLOSEC) 20 mg capsule Take 1 capsule (20 mg total) by mouth daily before breakfast 12/11/19 24 Active semaglutide (OZEMPIC) 0.25 mg or 0.5 mg (2 mg/3 mL) pen injector injection Inject 0.25 mg under the skin once a week 03/20/20 24 Active atorvastatin (LIPITOR) 20 mg tablet Take 1 tablet (20 mg total) by mouth daily 09/16/19 25 Active metFORMIN (GLUCOPHAGE) 500 mg tablet Take 1 tablet (500 mg total) by mouth 2 (two) times a day 09/17/19 25 Active amLODIPine (NORVASC) 10 mg tablet Take 1 tablet (10 mg total) by mouth daily Act prince valACYclovir (VALTREX) 1 gram tablet TAKE 1 TABLET BY MOUTH EVERY DAY WITH MEALS FOR 5 DAYS Active Active Problems Problem Noted Date Diagnosed Date Gastroesophageal reflux disease 12/11/2023 Overview (10/07/2024): Chronic and that she feels she is needing a refill on omeprazole. She takes 20 mg daily. She states will take for a few months and then will stop. Lumbosacral radiculopathy 12/11/2023 Overview (10/07/2024): Still occurs. Had seen pain management but was not interested in injections. Would like to go back to PT and with someone in [place]. Type 2 diabetes mellitus wit hout complication, without long-term current use of insulin 12/11/2023 Overview (10/07/2024): Recent A1C was 6.4 and pt takes Metformin 500mg twice a day. Seasonal allergic rhinitis 02/03/2022 Vitamin D deficiency 10/19/2021 Overview (10/07/2024): Hx of vitamin D deficiency. Recent Vitmain D level came back low at 20.6 Prediabetes 06/24/2021 Chronic anemia 07/10/2019 Overview (10/07/2024): Had been following with Dr. De Oliveira for this and for lymphocytosis. Lymphocytosis 07/10/2019 Pelvic and perineal pain 10/23/2017 Overview (10/07/2024): Pelvic and perineal pain;Recorded Elsewhere: No Location: [facility] Source: EHR Chronic: N Practice ID: [id number] Billable Time: 11:30:00 AM Acute vaginitis 02/08/2017 Overview (10/07/2024): Acute vulvovaginitis;Recorded Elsewhere: No Location: [facility] Source: EHR Chronic: N Practice ID: [id number] Billable Time: 01:00:00 PM Hyperglycemia 01/31/2017 Dysuria 01/13/2017 Overview (10/07/2024): Dysuria;Practice ID: [id number] Itching 10/11/2016 Overview (10/07/2024): Pruritus, unspecified;Recorded Elsewhere: No Location: [facility] Source: EHR Chronic: N Practice ID: [id number] Billable Time: 10:30:00 AM Memory loss 02/17/2016 Overview (07/22/2016): Memory loss Disturbance in sleep behavior 02/17/2016 Overview (07/22/2016): Sleep disturbance Headache disorder 02/17/2016 Overview (07/22/2016): New daily persistent headache History of brain disorder 01/19/2016 Overview (07/22/2016): History of seizure Numbness of face 01/12/2016 Overview (07/22/2016): Facial numbness Weakness of left side of body 01/12/2016 Overview (07/22/2016): Left sided weakness Weakness 01/12/2016 Overview (07/22/2016): Unilateral weakness Headache disorder 01/12/2016 Overview (10/07/2024): Headache Headache New daily persistent headache 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 Taking Amlodipine 10mg daily and HCTZ 12.5mg daily. Drug allergy to lisinopril. Essential (primary) hypertension;Recorded Elsewhere: No Location: [facility] Source: EHR Chronic: N Practice ID: [id number] Billable Time: 01:45:00 PM Obesity 10/30/2015 Overview (10/07/2024): Has not been doing well with her diet and exercise. She is motivated to make change. Low back pain 09/17/2015 Overview (07/22/2016): Flank pain Hematuria 09/17/2015 Overview (07/22/2016): Hematuria Impaired glucose tolerance 08/03/2015 Overview (07/21/2016): Prediabetes Medical examinations/reports status 07/20/2015 Overview (07/22/2016): Routine general medical examination at a health care facility Hypertrophy of tonsils 07/20/2015 Overview (07/22/2016): Tonsillar hypertrophy Large breasts 07/20/2015 Overview (07/22/2016): Large breasts Anxiety and depression 07/20/2015 Overview (10/07/2024): Depression with anxiety Still an issue but she is not interested in medication. She feels if her physical health improve her mental health will. Snoring 07/20/2015 Overview (07/22/2016): Snores Surgical History Surgery Date Site/Laterality Comments BREAST BIOPSY 03/01/2024 Right Medical History Medical History Date Comments Hx Other Medical Diabetes Anxiety disorder Anxiety Depression Depression Altered mental status Altered me ntal status; Comments: [facility] 03/18/2016 - Headache Headache; Commen ts: [facility] 03/18/2016 - 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 Unilateral facial weakness; Comments: [facility] 03/18/2016 - Seizure (HCC) Seizure; Comment s: [facility] 03/18/2016 - Essential hypertension Essential hypertension; Comments: [facility] 03/18/2016 - Memory loss Memory loss; Com ments: [facility] 03/18/2016 - Hypertrophy of tonsils Tonsillar hypertrophy; Comments: [facility] 03/18/2016 - Hematuria Hematuria; Comme nts: [facility] 03/18/2016 - Borderline diabetes mellitus Pre diabetes; Comments: [facility] 03/18/2016 - Family History Medical History Relation Name Comments Colon cancer Mother Relation Name Status Comments Mother Social History Tobacco Use Types Packs/Day Years Used Date Smoking Tobacco: Never Tobacco Cessation:Counseling Given: Not Answered Comments Unknown Sex and Gender Information Value Date Recorded Sex Assigned at Not on file Legal Sex Female 8:37 PM [employer] Gender Identity Not on file Sexual Orientation Not on file Obstetrics History Last Filed Vital Signs Vital Sign Reading Time Taken Comments Blood Pressure 139/88 10/07/2024 2:52 PM CDT Pulse 85 10/07/2024 2:52 PM CDT Temperature 36.9 C (98.5 F) 10/07/2024 2:52 PM CDT Respiratory Rate 18 10/07/2024 2:52 PM CDT Oxygen Saturation 100% 10/07/2024 2:52 PM CDT Inhaled Oxygen Concentration - - Weight 89.2 kg (196 lb 9.6 oz) 10/07/2024 2:52 P M CDT Height 157.5 cm (5' 2) 10/07/2024 2:52 PM CDT Body Mass Index 35.96 10/07/2024 2:52 PM CDT Plan of Treatment Health Maintenance Due Date Last Done Comments Albumin Creatinine Ratio, Urine 1977 Breast Cancer Screening-Mammogram 1977 Cervical Cancer Screening 1977 Colon Cancer Screening-Colonoscopy 1977 Depression Screening 1977 Hepatitis C Screening 1977 eGFR 1977 Dilated Eye Exam 1977 Foot Exam 1977 DTaP/Tdap/Td Vaccine (1 - Tdap) 1988 Hepatitis B Screening 12/17/1995 Regular Well Visit/Exam 18-64 12/17/1995 Pneumococcal vaccine <65 (1 of 2 - PCV) 1996 Hemoglobin A1C 08/05/2015 02/03/2015 Lipid Panel 12/04/2024 12/05/2023, 07/23/2015 Covid-19 Vaccine ( - season) 2024, 07/18/2020 Influenza Vaccine (#1) 2024 Procedures Procedure Name Priority Date/Time Associated Diagnosis Comments SERUM LIPID PANEL Routine 07/23/2015 8:4 1 AM CDT HEMOGLOBIN A1C Routine 02/03/2015 5:40 AM CDT from Last 3 Months or Most Recently Relevant to Health Maintenance Results * (ABNORMAL) Serum lipid panel (07/23/2015 8:41 AM CDT) Cholesterol 246(H) 125 - 200 mg/dl HISTORICAL RESULTS HDL 59 > OR = 46 mg/dl HISTORICAL RESULTS Triglycerides 134 <150 mg/dl HISTORICAL RESULTS LDL 160(H) <130 mg/dl HISTORICAL RESULTS Comment: Desirable range <100 mg/dL for patients with CHD or diabetes and <70 mg/dL for diabetic patients with known heart disease. Chol/HDL ratio 4.2 < OR = 5.0 calc HISTORICAL RESULTS Non-HDL cholesterol, calculated 187(H) mg/dl HISTORICAL RESULTS Comment: Target for non-HDL cholesterol is 30 mg/dL higher than LDL cholesterol target. Serum 07/23/2015 8:41 AM CDT Historical Provider LAB BLOOD ORDERABLES Ann aburto Result HISTORICAL RESULTS * (ABNORMAL) Hemoglobin A1c (02/03/2015 5:40 AM CDT) Hemoglobin A1c % 6.2(H) 4.8 - 5.9 % 02/03/2015 10:22 AM CDT [facility] Offerial HISTORICAL RESULTS Comment: [place] [employer] recommends that the goal of therapy should be an A1C hemoglobin of <7%. Reevaluate the treatment regimen in patients with an A1C >8%. 02/03/2015 5:40 AM CDT 02/03/2015 5:59 AM CDT Narrative [employer] HISTORICAL RESULTS - 02/03/2015 10:22 AM CDT Comment In AM Farhad Fuchs MD LAB BLOOD ORDERABLES Final Result Performing Organization Address City/[facility] [address]/[facility] Co de Phone Number [facility] HISTORICAL RESULTS from Last 3 Months or Most Recently Relevant to Health Maintenance Insurance [facility] CHOICE PLUS
--- OUTSIDE RECORDS SUMMARY | 2025-01-29 11:49 | XMS_ITS | Patient Health Record ---
Author Organization [facility] Address [address] [facility] [address] [place], [place] [id number] Care Team Providers Care Prison Librarian Name Role Phone Arnaldo Tuttle DO Unavailable [phone] Elaine Sweeney Unavailable [phone] Allergies No Known Allergies Reason For Referral No Information Medications Medication SIG (Take, Route, Frequency, Duration) Notes Start Date End Date Status metFORMIN HCl 500 MG TAKE 1 TABLET BY MO UTH TWICE DAILY Oral; Duration: 90 Days Active Vitamin D3 50 MCG (1999 UT) Oral; Duration: 90 Days Active amLODIPine Besylate 10 MG Oral; Duration: 90 Days Active Doxycycline Hyclate 100 MG TAKE 1 TABLET BY MOUTH TWICE DAILY FOR 7 DAYS Oral; Duration: 7 Days Active valACYclovir HCl 1 GM TAKE 1 TABLET BY M OUTH EVERY DAY WITH MEALS FOR 5 DAYS Oral; Duration: 5 Days Active Nitrofurantoin Monohyd Macro 100 MG Oral; Duration: 5 Days Activ e valACYclovir HCl 500 MG TAKE 1 TABLET BY MOUTH EVERY DAY FOR SUPPRESSIVE THERAPY Oral; Duration: 90 Days Active Meloxicam 7.5 MG Oral; Duration: 90 Days Active Metoprolol Tartrate 100 MG Oral; Duration: 90 Days Active Albuterol Sulfate HFA 108 (90 Base) MCG/ACT Inhalation; Duration: 25 Days Active FeroSul 325 (65 Fe) MG TAKE 1 TABLET BY MOUTH TWICE DAILY Oral; Duration: 45 Days Active Fluconazole 150 MG TAKE 1 TABLET BY NOW. REPEAT IN 72 HOURS NEEDED Oral; Duration: 9 Days Active Nystatin-Triamcinolone 150100-1.1 UNIT/GM External; Duration: 15 Days Active Assessments Encounter Date Diagnosis (ICD Code) Assessment Notes Treatment Notes Treatment Clinical Notes Section Notes 01/15/2025 Other Plan Of Treatment No Information Insurance Providers Payer Name Payer Address Payer Phone Subscriber Number Group Number Insured Name Patient Relationship to Insured Coverage Start Date Coverage End Date [facility] [address] [address] [place] [address] [id number] Johanna Dominguez Self - patient is the insured Medical (General) History Medical History History ICD Code Date Unknown Anemia Date Unk nown Diabetes mellitus (CMS/HCC) Date Unknown HTN (hypertension) Date Unknown Hyperlipidemia Surgical History Surgery Date(Month/Year) 2016 Hx breast reduction Com ment: [facility] 2013 Hx hysterectomy Comment: [facility]
== END 2025-01-29 11:00 | disposition home or self-care (01) ==
PROVIDERS: Emergency Provider Nurse Practitioner Family; PCP Nurse Practitioner
DX: S93.601A Unspecified sprain of right foot, initial encounter (principal); W18.09XA Striking against other object with subsequent fall, initial encounter; I10 Essential (primary) hypertension; R73.03 Prediabetes; K76.0 Fatty (change of) liver, not elsewhere classified; J45.909 Unspecified asthma, uncomplicated; E78.5 Hyperlipidemia, unspecified; K21.9 Gastro-esophageal reflux disease without esophagitis; Z79.84 Long term (current) use of oral hypoglycemic drugs
CPT/HCPCS: 73630; 99213; G0463

== ENCOUNTER 2025-02-06 17:17 | Emergency (ER) | payer OTHER, SELFPAY ==
--- OUTSIDE RECORDS SUMMARY | 2025-01-15 09:00 | XMS_ITS ---
Author Organization [facility] Address [address] [place], [place] [id number] Care Team Providers Care Dispatch Manager Name Role Phone Arnaldo Tuttle DO Unavailable [phone] Allergies No Known Allergies Medications Medication SIG [...] Flucon[facility] 150 MG [facility] RE[facility] 72 HOURS NEEDED Oral; Duration: 9 Days Active Nystatin-Triamcinolone 976901-9.1 UNIT/GM External; Duration: 15 Days Active amLODIPine [...] [address] [place], [place] [address] 01/15/2025 Arnaldo Tuttle Assessments Encounter Date Diagnosis [...] Notes * ELIZONDOFloryB: [birth year] (49 yo F)Acc No.[id number]:01/15/2025 Patient: Johanna OWENS Provider: Nettie Tuttle DO :1975 A ge:49 Y S ex:Female Date:01/15/2025 Address:[address] [place], [place] [id number] Subjective: * Chief Complaints: * * HPI: [...] 72 HOURS NEEDED Oral , Taking Nystatin-Triamcinolone 453621-0.1 UNIT/GM Ointment External , Taking Albuterol Sulfate [...] Electronic signature of Luis Manuel Tuttle DO, [id number] on 02/06/2025 at 05:20 PM CDT Sign off status: Pending * Provider: Nettie Tuttle DO Date: Generated for Baljit carmichael/Isidra/Arnoldoitting on: 05:20 PM CDT History and Physical Notes * [...]
--- OUTSIDE RECORDS SUMMARY | 2025-01-15 09:30 | XMS_ITS ---
Author Organization [facility] Address [address] [facility] [address] [place], [place] [address] Care Team Providers Care Enterprise Analyst Name Role Phone Elaine Sweeney Unavailable [phone] Encounters Encounter Location Date Provider Diagnosis [facility] [address] [facility] [address] [place], [place] [phone] 01/15/2025 Elaine Sweeney Plan Of Treatment No Information Progress Notes * Flory ELIZONDOB: [birth year] (49 yo F)Acc No.[id number]:01/15/2025 Patient: Johanna OWENS Provider: Lisa Sweeney RD, LD :1975 A ge:49 Y S ex:Female Date:01/15/2025 Address:[address] [place], [place] [phone] Subjective: * Chief Complaints: * * Medical History: Objective: * Vitals: Assessment: Plan: * Treatment: * Billing Information: * Visit Code: * Procedure Codes: * Electronic signature of Dariel Dixon RD, LD on 02/06/2025 at 05:20 PM CDT Sign off status: Pending * Provider: Lisa Sweeney RD, LD Date: Generated for Baljit carmichael/Isidra/eTransmlaura on: 05:20 PM CDT
--- OUTSIDE RECORDS SUMMARY | 2025-02-06 17:20 | XMS_ITS | Clinical Summary ---
Author Organization [facility] Address [facility] [place] [address] Care Team Providers Care Meal Temperer Name Role Phone Viridiana Zaidi NP Primary Care Provider [phone] Allergies Active Allergy Reactions Criticality Noted Date [...] kit 02/04/20 22 Active Lancets (ONETOUCH ULTRASOFT) lancetsIndication s:Prediabetes 1 each by Other route as needed. Check blood sugar three times a day before meals as needed 100 each 3 02/04/20 22 Active Cholecalciferol 50 MCG (1999 UT) TabIndications:Vi tamin D deficiency Take 1 tablet by mouth daily. 90 tablet 1 12/11/19 24 Active atorvastatin (LIPITOR) 20 MG tabletIndications :Hyperlipidemia, unspecified hyperlipidemia type TAKE 1 TABLET BY MOUTH EVERY DAY 90 tablet 1 04/29/19 25 Active metFORMIN (GLUCOPHAGE) 500 MG tabletIndications :Prediabetes TAKE 1 TABLET BY MOUTH TWICE DAILY 180 tablet 09/17/19 25 Active FEROSUL 325 (65 Fe) MG tablet Take 1 tablet (325 mg total) by mouth 2 (two) times daily. Active albuterol sulfate HFA 108 (90 Base) MCG/ACT inhalerIndication s:Bronchitis due to COVID-19 virus Inhale 2 puffs into the lungs every 6 (six) hours as needed for Wheezing or Shortness of breath. 18 g 11/06/19 25 Active metoprolol tartrate (LOPRESSOR) 100 MG tabletIndications :Hypertension, unspecified type take 1 tablet by mouth daily 90 tablet 11/06/19 25 Active amLODIPine (NORVASC) 10 MG tabletIndications :Hypertension, unspecified type Take 1 tablet (10 mg total) by mouth daily. 90 tablet 01/01/20 25 Active semaglutide (OZEMPIC, 0.25 OR 0.5 MG/DOSE,) 2 MG/3ML injection (PEN)Indications: Diabetes Mellitus Inject 0.25 mg into the skin every 7 days. Indications: Diabetes 3 mL 02/04/20 25 Active gabapentin (NEURONTIN) 100 MG capsuleIndication s:Lumbosacral radiculopathy Take 1 capsule (100 mg total) by mouth 3 (three) times daily. 02/04/20 25 Active omeprazole (PRILOSEC) 20 MG capsuleIndication s:Gastroesophagea l reflux disease, unspecified whether esophagitis present TAKE 1 CAPSULE(20 MG) BY MOUTH IN THE MORNING 90 capsule 1 12/11/19 24 025 Discontinued semaglutide (OZEMPIC) 2 MG/3ML injection (PEN)Indications: Diabetes Mellitus Inject 0.25 mg into the skin every 7 days. Indications: Diabetes 3 mL 03/20/20 24 025 Discontinued meloxicam (MOBIC) 7.5 MG tabletIndications :Bilateral low back pain, unspecified chronicity, unspecified whether sciatica present Take 1 tablet (7.5 mg total) by mouth daily. 90 tablet 11/06/19 25 025 Discontinued Active Problems Problem Noted Date Diagnosed Date Mild obstructive sleep apnea 02/03/2025 Hyperlipidemia, unspecified hyperlipidemia type 02/03/2025 Overview (02/03/2025): Chronic condition. Taking atorvastatin and tolerating well. Assessment & Plan (02/03/2025 9:10 AM CDT): Chronic condition, controlled. No changes needed at this time. Due for lipid panel to be checked. Encourage following a healthy well balance diet. Limit saturated and trans fats. Encourage to get plenty of lean meats in your diet and grilled fish. Recommend eating at least 2 servings of fruits and vegetables per day. Encourage to limit sugar, processed foods, and large amount of carbohydrates. Type 2 diabetes mellitus wit hout complication, without long-term current use of insulin 12/11/2023 Overview (02/03/2025): Last A1C was 6.4 in November 2023. Pt takes Metformin 500mg twice a day. Pt only took Ozempic for two weeks and stopped it. She would like to begin taking again. She was having some constipation at that time but is doing much better. She will begin taking with a daily stool softener as well. Denies any polyuria, polydipsia, or polyphagia. Does have some neuropathy she will get from time to time in her feet. She suffers from lumbar radiculopathy as well. Takes gabapentin 100mg as needed for this. Diabetic eye exam is due. When she checks her blood sugars in the morning she states is normally 80's to 100's. Struggles with her diet and losing weight. Assessment & Plan (02/03/2025 9:30 AM CDT): A1C today is 6.7 Pt would like to begin Ozempic again. Resume Metformin at same dose. Be sure to focus on high fiber diet, stay well hydrated, take stool softer daily with use d/t hx of constipation. Pt will notify me if any issues arise. Script resent. Discussed how to take and side effects Goal for blood sugars to be between 80-130 fasting and 180 or less two hours after eating. Be sure you have a diabetic eye exam yearly. Encourage daily foot checks, avoid walking around barefoot. Goal for A1C to stay below 7 YOBANY/ARB- no, drug allergy Statin-yes Foot exam- 02/03/25 normal Urine microalbumin- can't void today, will complete at her follow up Assessment & Plan (12/11/2023 10:51 AM CDT): [...] back to PT and with someone in [place]. Assessment & Plan (12/11/2023 10:44 AM CDT): Referral to PT in [place] placed. Gastroesophageal reflux dise ase, unspecified whether [...] AM CDT): Encourage stress relieving activities. Health horse riding coach or instructor also recommended. Vitamin D deficiency 10/19/2021 Overview [...] motivated to make change. Assessment & Plan (02/03/2025 9:28 AM CDT): Encourage diet and lifestyle changes to assist with weight loss. Restarting Ozempic We discussed to help with weight loss is to try intermittent fasting. Starting with 12 hours. Recommend consuming half body weight of protein per day. Increasing water in diet, Work on limited processed food, sugar, and limit carbohydrates. Increase fresh fruit and whole fresh vegetables in diet. Assessment & Plan (12/11/2023 10:45 AM CDT): Diet and lifestyle changes discussed. Encourage health horse riding coach or instructor as well and personal care home administrator to help with accountability. Pt's goals are to feel better to improve her physical and mental health and to get off medication. Primary hypertension 11/18/2015 Overview (02/03/2025): Hypertension has been well controlled. Taking Amlodipine 10mg daily. Drug allergy to lisinopril. Denies chest pain, palpitations, shortness of breath, dizziness, lightheadedness or lower extremity edema. Denies any orthopnea or PND. Assessment & Plan (02/03/2025 9:08 AM CDT): Chronic condition, controlled. No changes needed at this time. Goal for BP to stay below 140/90. Encourage lifestyle modifications to include healthy eating, decrease salt and caffeine in diet, routine exercise, and weight loss, Assessment & Plan (12/11/2023 10:15 AM CDT): Chronic condition, controlled. No changes needed at this time. Goal for BP to stay 130/80 or less. Resolved Problems Problem Noted Date Diagnosed Date Resolved Date At risk for obstructive sleep apnea 09/16/2024 02/03/2025 Assessment & Plan (09/16/2024 1:27 PM CDT): Will obtain a home sleep study and follow The patient should maintain good sleep hygiene techniques, maintain a consistent sleep/wake schedule with adequate hours of sleep, and avoid hazardous activities when sleepy. The patient should be cautioned about factors that may potentially exacerbate snoring and sleep-related problems, such as BELT LOOP CUTTER depressants, especially at bedtime. Microscopic hematuria 07/05/20232023 Elevated liver enzymes 07/05/202312/10 Pelvic pain 07/05/2023 12/11/2023 Sprain of left ankle, unspec ified ligament, subsequent encounter 03/16/2022 12/11/2023 Abdominal pain, unspecified abdominal location 09/07/2021 09/07/2021 Low back pain 06/24/2021 12/11/2023 Macromastia 06/24/2021 12/11/2023 Prediabetes 06/24/2021 12/11/2023 Hyperglycemia 01/31/2017 12/11/2023 Encounters Date Type Department Care Team Description 02/03/2025 9:00 AM CDT Office Visit [facility] Family Medicine [facility] [address] [place] [address] Viridiana Zaidi NP Diabetes (Patient presents for a 3 month follow up diabetes) 02/03/2025 Travel 12/31/2024 Arnulfo Message Enc [facility] Family Medicine [facility] [address] [place] [address] Arnulfo, [facility] Provider 3 mo follow up / annual physical 12/31/2024 Orders Only [address] [place] [address] Rafaela Alfonso MA 11/12/2024 Telephone [place] [phone] [facility] [address] [place] [address] Viridiana Zaidi NP Orders ([employer]) 11/07/2024 Scan [facility]VCS Scanned, [facility] 11/06/2024 Scan [facility] Scanned, [facility] Sleep Study (SCAN) 11/06/2024 Telephone [place] [phone] [facility] [address] [place], [place] [id number] Viridiana Zaidi NP Sleep Study from Last 3 Months Immunizations Immunization Administration Dates Next Due PFIZER COVID-19 (MITCHELL [...] Information Value Date Recorded Sex Assigned at Female 09/16/2024 12:43 PM CDT Legal Sex Female 1:46 AM CDT Gender Identity Female 09/16/2024 12:43 PM CDT Sexual Orientation Not on file Last Filed Vital Signs Vital Sign Reading Time Taken Comments Blood Pressure 122/80 02/03/2025 9:07 AM CDT Pulse 78 02/03/2025 9:07 AM CDT Temperature 36.6 C (97.9 F) 02/03/2025 9:07 AM CDT Respiratory Rate 16 02/03/2025 9:07 AM CDT Oxygen Saturation 100% 02/03/2025 9:07 AM CDT Inhaled Oxygen Concentration - - Weight 91.2 kg (201 lb) 02/03/2025 9:07 AM CDT Height 157.5 cm (5' 2) 02/03/2025 9:07 AM CDT Body Mass Index 36.76 02/03/2025 9:07 AM CDT Plan of Treatment Upcoming Encounters Date Type Department Care Team (Late st Contact Info) Description 02/11/2025 8:40 AM CDT Allied Health/Nurse Visit [facility] [address] [facility] [address] [place] [address] Viridiana Zaidi NP [address] [facility] [address] [place] [address] 05/08/2025 9:20 AM STRAP MAKING MACHINE OPERATOR Office Visit [facility] [place] [address] [facility] [address] [place] [address] Viridiana Zaidi NP [address] [facility] [address] [place], [place] [phone] Health Maintenance Due Date Last Done Comments Kidney Health Evaluation 1977 Diabetes: Retinopathy Eye Exam 12/17/1995 DTaP, Tdap and Td Vaccines (1 - Tdap) 1996 Hepatitis B Vaccines (1 of 3 - 19+ 3-dose series) 1996 Pneumococcal Vaccine: Pediatrics (0 to 5 Years) and At-Risk Patients (6 to 49 Years) (1 of 2 - PCV) 1996 Lipid Panel 12/04/2024 12/05/2023, 0811/2022, 10/08/2021 Annual Physical 12/10/2024 12/11/2023, 06/24/2021 COVID-19 Vaccine (3 - 2024- season) 2024 05/12/2021, 07/18/2020 Influenza Adult (#1) 2025 Hemoglobin A1C 08/04/2025 02/03/2025, 08, 11/22/2022, Additional history exists Mammogram Screening 08/26/2025 08/26/2024, 03/01/2024, 01/30/2024, Additional history exists Colorectal Cancer Screening Colonoscopy (10 Years) 05/23/2034 05/23/2024 Hepatitis C Completed 10/08/2021 PHQ-2 (Physician [place]) Completed 05/27/2024 Hepatitis A Vaccines Aged Out No long er eligible based on patient's age to complete this topic Meningococcal B Vaccine Aged Out No l onger eligible based on patient's age to complete this topic Meningococcal Vaccine Aged Out No cecily jonathan eligible based on patient's age to complete this topic RSV Immunizations Under 20 Months Aged Out No longer eligible based on patient's age to complete this topic Procedures Procedure Name Priority Date/Time Associated Diagnosis Comments COLLECT.CAPILLARY (FNGR,HEEL,EAR) Routine 02/03/2025 9:04 AM CDT Type 2 diabetes mellitus without complication, without long-term current use of insulin ([facility]) HEMOGLOBIN, GLYCOSYLATED Routine 02/03/2025 Type 2 diabetes mellitus without complication, without long-term current use of insulin ([facility]) SLEEP STUDY GENERIC (SCAN ORDER) 11/06/2024 MG DIAG W FRED RT DIGI Routine 08/26/2024 11:14 AM CDT Breast mass, right COLONOSCOPY GENERIC (SCAN ORDER) 05/23/2024 LIPID PANEL Routine 12/05/2023 9:24 AM CDT Hyperlipidemia, unspecified hyperlipidemia type HEPATITIS C ANTIBODY W/RFX TO HCV RNA Routine 10/08/2021 12:59 PM CDT from Last 3 Months or Most Recently Relevant to Health Maintenance Results * A1C (BACK OFFICE) (02/03/2025) HGB A1C 6.7 % [address], [place] 02/03/2025 us Viridiana Deneen We[place]acht [facility] Final Res ult [address] [place] [address] [facility] [address] [place] [address], * SLEEP STUDY GENERIC (SCAN ORDER) (11/06/2024) 11/06/2024 us [facility] Scanned SCANNING Final Resu lt * MG DIAG W FRED RT DIGI (08/26/2024 11:14 AM CDT) Anatomical Region Laterality Modality Breast Right Mammography 08/26/2024 11:2 2 AM CDT Impressions 08/26/2024 11:23 AM CDT =====IMPRESSION:===== No mammographic findings suggestive of malignancy ASSESSMENT: ACR BI-RADS 2 - BENIGN FINDING(S) Recommendation: 1: Routine Screening Bilateral Ordered By: LORI Rowell [facility] Interpreted By: Rob Vera MD, 08/26/2024 11:22 AM Narrative 08/26/2024 11:23 AM CDT [address] [address] EXAMINATION: Digital right diagnostic mammogram with 3-D tomosynthesis EXAM DATE/TIME: 08/26/2024 11:09 AM REASON FOR EXAM: right breast mass COMPARISON: 03/01/2024, 01/30/2024, 09/29/2022 TECHNIQUE: Digital diagnostic mammography of the right breast was performed in addition to 3-D Tomosynthesis technique. This study was read with the assistance of a computer-aided detection system. TISSUE DENSITY: There are scattered areas of fibroglandular density. FINDINGS: The breast parenchymal findings are stable. Scattered benign-appearing calcifications are noted. Biopsy clip noted in the retroareolar region. There are no suspicious calcifications, masses, architectural distortion or skin thickening. There has been no significant interval change Lori Bob MD MAMMO Final Result * COLONOSCOPY GENERIC (SCAN ORDER) (05/23/2024) 05/23/2024 [facility] Scanned SCANNING Final Resu lt * LIPID PANEL (12/05/2023 9:24 AM CDT) CHOLESTEROL 166 <200 MG/DL 12/05/2023 3:34 PM CDT [facility] TRIGLYCERIDES 111 <150 MG/DL 12/05/2023 3:34 PM CDT [facility] HDL 67 >40 MG/DL 12/05/2023 3:34 PM CDT [facility] LDL-C 77 <100 MG/DL 12/05/2023 3:34 PM CDT [facility] VLDL CALCULATION 22 5 - 28 MG/DL 12/05/2023 3:34 PM CDT [facility] CHOL/HDL RATIO 2.5 0.0 - 4.0 12/05/2023 3:34 PM CDT [facility] LDL/HDL 1.1 0.41 - 2.13 12/05/2023 3:34 PM CDT [facility] NON HDL CHOLESTEROL 99 <140 MG/DL 12/05/2023 3:34 PM CDT [facility] 12/05/2023 9:24 AM CDT Viridiana aZidi [facility] Final Res ult -[facility] [place] [address] [facility] [place] [address], * HEPATITIS C ANTIBODY W/RFX TO HCV [...] a test for HCV RNA (test code 75664) is suggested. For additional information please refer to http://education.[employer]/faq/UQB45l8 (This link is being provided for informational/ educational purposes only.) 10/08/2021 12:5 9 PM CDT 10/08/2021 1:00 PM CDT Narrative [facility] - 10/14/2021 5:13 PM CDT FASTING:YES FASTING: YES Viridiana Zaidi NP LABORATORY Final Res ult Performing Organization Address City/State/[facility] Co de Phone Number [facility] [address] [place] [address] from Last 3 Months or Most Recently Relevant to Health Maintenance Additional Health Concerns Infection Onset Date Last Indicated MRSA 11/21/2016 11/21/2016 Insurance [facility] [place] [address] Care Teams Meal Temperer Relationship Specialty Start Date End Date Viridiana Zaidi NP [address] [place] [address] PCP - General NURSE PRACTITIONER 06/17/21
--- OUTSIDE RECORDS SUMMARY | 2025-02-06 17:20 | XMS_ITS | Encounter Summary ---
Author Organization [facility] Address [address] [place] [address] Care Team Providers Care Cigar Tobacco Rehandler Name Role Phone Carson Benavides MD Primary Care Provider [phone] Viridiana Zaidi NP Primary Care Provider [phone] Encounter Details Date Type Department Care Team (Late Contact Info) Description 09/22/2018 Abstract [facility] CONVERSION [address] [place] [address] , Generic Conversion, Social History Tobacco Use [...] PM CDT Sexual Orientation Not on file documented as of this encounter Plan of Treatment Upcoming Encounters Date Type Department Care Team (Late st Contact Info) Description 02/11/2025 8:40 AM CDT Allied Health/Nurse Visit [facility] Family Medicine [facility] [address] [place] [phone] Viridiana Zaidi NP [address] [place] [phone] 05/08/2025 9:20 AM POWER SYSTEM DISPATCHER Office Visit [facility] [place] [address] [facility] [address] [place] [address] Viridiana Zaidi NP [address] [place] [address] documented as of this encounter Visit Diagnoses Not on filedocumented in this encounter Additional Health Concerns Infection Onset Date Last Indicated Resolved Time MRSA 11/21/2016 11/21/2016 documented as of this encounter Care Teams Cigar Tobacco Rehandler Relationship Specialty Start Date End Date Carson Benavides MD [address] [place] [address] PCP - General INTERNAL MEDICINE 08/19/17 06/16/21 Viridiana Zaidi NP [address] [place] [address] PCP - General NURSE PRACTITIONER 06/17/21 documented as of this encounter
--- OUTSIDE RECORDS SUMMARY | 2025-02-06 17:20 | XMS_ITS | Encounter Summary ---
Author Organization [facility] Address [facility] [place] [address] Care Team Providers Care Websphere Architect Name Role Phone Viridiana Zaidi INTENSIVIST Primary Care Provider [phone] Encounter Details Date Type Department Care Team (Late st Contact Info) Description 09/25/2024 [employer] Message Enc [facility] Family Medicine [facility] [address] [facility] [address] [place] [phone] Arnulfo [facility] Provider Sleep study Social History Tobacco Use Types Packs/Day Years [...] 02/11/2025 8:40 AM CDT Allied Health/Nurse Visit [facility] Family Medicine [facility] [address] [facility] [address] [place], [place] [phone] Viridiana Zaidi NP [address] [place] [address] 05/08/2025 9:20 AM REFINED SYRUP OPERATOR Office Visit [facility] [place] [address] [facility] [address] [place] [address] Viridiana Zaidi NP [address] [place] [address] [place], [place] [phone] documented as of this encounter Visit Diagnoses Not on filedocumented in this encounter Additional Health Concerns Infection Onset Date Last Indicated Resolved Time MRSA 11/21/2016 11/21/2016 documented as of this encounter Care Teams Websphere Architect Relationship Specialty Start Date End Date Viridiana Zaidi NP [address] [place] [address] [place], [place] [phone] PCP - General NURSE PRACTITIONER 06/17/21 documented as of this encounter
--- OUTSIDE RECORDS SUMMARY | 2025-02-06 17:20 | XMS_ITS | Clinical Summary ---
Author Organization [facility] [address] [facility] [address] Address [address] [place] [address] Care Team Providers Care News Videotape Editor Name Role Phone Unavailable Primary Care Provider [...] back to PT and with someone in [place]. Type 2 diabetes mellitus wit hout complication, [...] Pelvic and perineal pain;Recorded Elsewhere: No Location: [facility] Source: EHR Chronic: N Practice ID: [id number] Billable Time: 11:30:00 AM Acute vaginitis 02/08/2017 Overview (10/07/2024): Acute vulvovaginitis;Recorded Elsewhere: No Location: [facility] Source: EHR Chronic: N Practice ID: [id number] Billable Time: 01:00:00 PM Hyperglycemia 01/31/2017 Dysuria 01/13/2017 Overview (10/07/2024): Dysuria;Practice ID: [id number] Itching 10/11/2016 Overview (10/07/2024): Pruritus, unspecified;Recorded Elsewhere: No Location: [facility] Source: EHR Chronic: N Practice ID: [id number] [...] lisinopril. Essential (primary) hypertension;Recorded Elsewhere: No Location: [facility] Source: EHR Chronic: N Practice ID: [id number] [...] mental status Altered me ntal status; Comments: [facility] 03/18/2016 - Headache Headache; Commen ts: 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 03/18/2016 - Seizure (HCC) Seizure; Comment s: [facility] 03/18/2016 - Essential hypertension Essential hypertension; Comments: [facility] 03/18/2016 - Memory loss Memory loss; Com ments: [facility] 03/18/2016 - Hypertrophy of tonsils Tonsillar hypertrophy; Comments: [facility] 03/18/2016 - Hematuria Hematuria; Comme nts: [facility] 03/18/2016 - Borderline diabetes mellitus Pre diabetes; Comments: 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 Reevaluate the treatment regimen in patients with an A1C >8%. 02/03/2015 5:40 AM CDT 02/03/2015 5:59 AM CDT Narrative [id number] HISTORICAL RESULTS - 02/03/2015 10:22 AM CDT Comment In AM Farhad Fuchs MD LAB BLOOD ORDERABLES Final Result Performing Organization Address City/[facility] Co de Phone Number [facility] HISTORICAL RESULTS from Last 3 Months or Most Recently Relevant to Health Maintenance Insurance [facility] HMO/PPO Address: [facility] [address] [place] [address] [facility] CHOICE PLUS [facility] HMO/PPO Address: [facility] [address] [place] [address]
--- OUTSIDE RECORDS SUMMARY | 2025-02-06 17:20 | XMS_ITS | Data Portability ---
Author Organization [facility] Address [address] [place] [address] [place] [address] Care Team Providers Care Floor Mechanic Name Role Phone ALANGABBY Primary Care Provider Assessment Encounter Date Assessment Date Assessment LastModified by Organization Details LastModified Time 08/29/2024 08/29/2024 Annual gynecological exam performed. Patient will come back in a year unless there are new symptoms. rick Not available 08/29/2024 10:43:25 Plan of Treatment Reminders Order Date Submit Date Provider Last Modified By Organization Details Last Modified Time Details Appointments None recorded. Lab unlisted lab - [facility] swab plus, DARBY 2024 025 [facility] (Lab), [address], [place], [address], 14:48:24 unlisted lab - [facility] swab plus, DARBY 2024 025 [facility] (Lab), [address], [place], [address], 5 22:41:58 urinalysis, dipstick 2024 025 [email or web address] [facility], [address], [place], [address], 15:40:38 culture, urine 2024 025 [facility] (Lab), [address], [place], [address], 22:41:58 pap, IG + HR HPV - HPV regardless but if HPV is positive need subtyping 16,18/45 2024 [facility] (Lab), [address], [place], [address], 16:19:39 Referral None recorded. Procedures None recorded. Surgeries None recorded. Imaging US, transvagina l 2024 [email or web address] [facility], [facility] [address], [place], [address], 20:33:32 Medication Orders Valtrex 500 mg tablet 2024 [facility] #29787, [address] [place], [place], [id number], 11:17:37 fluoxetine 10 mg capsule 2024 [facility] #18556, [address], [place], [id number], 5 11:17:10 nystatin-tr iamcinolone 100,000 unit/gram-0 .1 % topical ointment 2024 025 [facility] #46055, [address] [place], [place], [id number], 5 13:00:06 Valtrex 1 gram tablet 2024 025 [facility] #05070, [address] [place], [place], [id number], 5 13:00:27 doxycycline hyclate 100 mg tablet 2024 025 [facility] #95296, [address] [facility], [id number], 5 05:01:24 fluconazole 150 mg tablet 2024 [facility] #24627, [address] [facility], [place], [place], [id number], 5 12:59:31 nystatin-tr iamcinolone 100,000 unit/gram-0 .1 % topical ointment 2024 [facility] #87253, [address] [place], [place], [id number], 5 12:37:31 Valtrex 1 gram tablet 2024 [facility] #42629, [address] [place], [place], [id number], 5 15:29:47 fluconazole 150 mg tablet [address]276[address], [address] [place], [place], [id number], 5 15:05:47 Patient TargetsNo targets recorded. Patient InstructionsNo instructions recorded. Reason for Referral None Reported. Results Created Date Observation Date Name Description Value Unit Range Abnormal Flag Note LastModifiedBy Organization Detail LastModifiedTime 08/30/19 25 08/29/2024 IMAGE GUIDE D PAP AND HPV REGAR DLESS image guided Pap, HPV regardless of Pap result SEE RESULT S BELOW CASE REPOR T: Cytol ogy Gynec ologi shay Repor t Case: [id number] Autho nina beckwith Provi [place]: Dorys Kwon, ANUJA Colle cted: 08/29 1447 Order ing Locat ion: [place] [facility] Recei dru: 08/30 0702 First Scree n: Casi Alfonso, CT Rescr een: Ted Raymond, [place] Patho logis t: Addison Hart MD Speci men: Stacie childs Pap - Image d, Vagsoumya a [facility] ACY: Satis facto anupam for evalu ation Andreea cted resul t: Previ ously repor asif on 2024 at 1516 CDT. ----- ----- ----- ----- ----- ----- ----- ----- ----- ----- ----- ----- ----- ----- ----- ----- ----- ---- FINAL DIAGN OSIS: Negat prince for Intra epith elial Anyi rios or Sunita pedersen (YENNY) . Gland ular cells prese nt statu s post hyste recto my. Amend ment elect cynthia bishop by Addison Hart MD on 2024 at 1020 CDT ----- ----- ----- ----- ----- ----- ----- ----- ----- ----- ----- ----- ----- ----- ----- ----- ----- ---- Elect cynthia bishop by Addison Hart MD on 2024 at 1516 CDT ----- ----- ----- ----- ----- ----- ----- ----- ----- ----- ----- ----- ----- ----- ----- ----- ----- ---- Corre cted resul t: Previ ously repor asif on 2024 at 1516 CDT. HPV RESUL TS: HPV mRNA E6/E7 : No HPV mRNA Detec asif NOTE: This high risk HPV mRNA assay detec ts fourt een high- risk HPV types (16, 18, 31, 33, 35, 39, 45, 51, 52, 56, 58, 59, 66, 68) witho ut diffe renti ation . COMME NT: Per clini jonnie, the patie nt has had a hyste recto my. This case was amend ed to remov e the trans forma tion zone compo nent. The diagn osis has been hart ed from endo metri al cells prese nt after age 45 to glan dular cells prese nt statu s post hyste recto my This speci men was revie wed by a Cytot echno logis t and/o r Patho logis t (as indic ated in this repor t) after evalu ation using the Thinp rep Imagi ng Syste m. Corre cted resul t: Previ ously repor [...] ayush d, as clini mae huff nted. Corre cted resul t: Previ ously repor asif on 2024 at 1516 CDT. Not Available [facility] (Lab) [address] [facility] [address] [facility], [place], [address], 09/05/2024 11:24:59 09/24/1909/23/2024 [facility]OMEN 'S [facility] H SWAB PLUS, DARBY bacterial vaginosis (bv), tma Negati ve negati ve Not Available [facility] (Lab) [address] [place], [address], 09/24/2024 22:41:58 09/24/19 25 09/23/2024 [facility] DARBY connor species, tma Negati ve negati ve Not Available [facility] (Lab) [address], [place], [address], 09/24/2024 22:41:58 09/24/19 25 09/23/2024 [facility] DARBY connor glabrata, tma Negati ve negati ve Not Available [facility] (Lab) [address], [place], [address], 09/24/2024 22:41:58 09/24/19 25 09/23/2024 [facility], DARBY trichomonas vaginalis, tma Negati ve negati ve Not Available [facility] (Lab) [address] [place], [address], 09/24/2024 22:41:58 09/24/19 25 09/23/2024 [facility], DARBY chlamydia trachomatis, PCR Negati ve negati ve Not Available [facility] (Lab) [address] [place], [address], 09/24/2024 22:41:58 09/24/19 25 09/23/2024 WOMEN 'S [...] ded in this panel . Not Available [facility] (Lab) [address] , [place], [address], 09/24/2024 22:41:58 09/24/1909/23/2024 CULTU RE: URINE result report SEE RESULT S BELOW Test: Cultu re: Urine Speci men Sourc e: Urine Voide d Speci men Type: Urine Speci men Date: 025 1711 Resul t Date: 20247 Resul t Statu s: Final resul t Abnor mal: No Resul ting Lab: [facility] [address] [facility] [address] Tel: CULTU RE ----- ----- ----- --- No growt h in 1 day (dete ction level of 10,00 0 colon ies / ml.) Not Available [facility] (Lab) [address], [place], [address], 09/24/2024 22:41:58 09/24/1909/23/2024 urina lysis , dipst ick Leukocytes Trace Not Available Stephen riddle [address], [place], [address], 09/23/2024 15:39:27 09/24/19 25 09/23/2024 urina lysis , dipst ick Nitrite - Not Available [facility] [address], [place], [address], 09/23/2024 15:39:27 09/24/19 25 09/23/2024 urina lysis , dipst ick Urobilinogen Normal Not Available [facility] [address], [place], [address], 09/23/2024 15:39:27 09/24/19 25 09/23/2024 urina lysis , dipst ick Protein + Not Available [facility] [address], [place], [address], 09/23/2024 15:39:27 09/24/19 25 09/23/2024 urina lysis , dipst ick pH 5 Not Available [facility] [address], [place], [address], 09/23/2024 15:39:27 09/24/19 25 09/23/2024 urina lysis , dipst ick Blood trace Not Available [facility] [address], [place], [address], 09/23/2024 15:39:27 09/24/19 25 09/23/2024 urina lysis , dipst ick Specific Cedar 1.050 Not Available [facility] [address], [place], [address], 09/23/2024 15:39:27 09/24/19 25 09/23/2024 urina lysis , dipst ick Ketone - Not Available [facility] [address], [place], [address], 09/23/2024 15:39:27 09/24/19 25 09/23/2024 urina lysis , dipst ick Bilirubin - Not Available Prateek whitaker [address], [place], [address], 09/23/2024 15:39:27 09/24/1909/23/2024 urina lysis , dipst ick Glucose Normal Not Available [facility] [address], [place], [address], 09/23/2024 15:39:27 09/24/19 25 09/23/2024 urina lysis , dipst ick Appearance clear Not Available [facility] [address], [place], [address], 09/23/2024 15:39:27 09/24/19 25 09/23/2024 urina lysis , dipst ick Color dark yellow Not Available [facility] [address], [place], [address], 09/23/2024 15:39:27 12/24/1912/23/2024 WOMEN 'S HEALT H SWAB PLUS, DARBY bacterial vaginosis (bv), tma Negati ve negati ve Not Available [facility] (Lab) [address] [place], [address], 12/24/2024 14:48:24 12/24/19 25 12/23/2024 WOMEN 'S HEALT H SWAB PLUS, DARBY connor species, tma Negati ve negati ve Not Available [facility] (Lab) [address], [place], [address], 12/24/2024 14:48:24 12/24/19 25 12/23/2024 WOMEN 'S HEALT H SWAB PLUS, DARBY connor glabrata, tma Negati ve negati ve Not Available [facility] (Lab) [address] [place], [address], 12/24/2024 14:48:24 12/24/19 25 12/23/2024 WOMEN 'S HEALT H SWAB PLUS, DARBY trichomonas vaginalis, tma Negati ve negati ve Not Available [facility] (Lab) [address], [place], [address], 12/24/2024 14:48:24 12/24/1912/23/2024 WOMEN 'S HEALT H SWAB PLUS, DARBY chlamydia trachomatis, PCR Negati ve negati ve Not Available [facility] (Lab) [address], [place], [address], 12/24/2024 14:48:24 12/24/1912/23/2024 WOMEN 'S HEALT H SWAB PLUS, DARBY [...] ded in this panel . Not Available [facility] (Lab) [address], [place], [address], 12/24/2024 14:48:24 10/02/1910/01/2024 US, trans vagin al No observ ation record ed. [email or web address] [facility] [address], [place], [address], 10/01/2024 17:12:56 10/02/19 25 10/01/2024 US, trans vagin al No observ ation record ed. [email or web address] [address], [place], [address], 10/08/2024 18:29:48 Result Notes None recorded. Problems Name Problem SNOMED Code Status Onset Date Resolution Date Notes Provider Name and Address Organization Details Recorded Time Hyperten sive disorder 34118518 Completed 201501/14/2021 Essential (primary) hypertens ion;Recor ded Elsewhere : No Locati on: [facility] So urce: EHR Chron ic: N Practic e ID: 0001 Bill able Time: 01:45:00 PM Ashley [facility] 14:24:18 Body mass index 30+ - obesity 766338759 Completed 201501/14/2021 Body mass index (BMI) 36.0-36.9 , adult;Rec orded Elsewhere : No Locati on: [facility] So urce: EHR Chron ic: N Practic e ID: 0001 Bill able Time: 01:45:00 PM Ashley [facility] 14:24:13 Itching 442133223 Completed 201601/14/2021 Pruritus, unspecifi ed;Record ed Elsewhere : No Locati on: [facility] So urce: EHR Chron ic: N Practic e ID: 0001 Bill able Time: 10:30:00 AM Ashley [facility] 14:24:[address] Concept Completed 201601/14/2021 Encntr for general adult medical exam w/o abnormal findings; Recorded Elsewhere : No Locati on: [facility] So urce: EHR Chron ic: N Practic e ID: 0001 Bill able Time: 02:30:00 PM Ashley Hunter [facility] 14:24:24 Dysuria 76849940 Completed 201601/14/2021 Dysuria;P ractice ID: [id number] Ashley headley [facility] 14:24:17 Acute vaginiti s 86026512 Completed 201601/14/2021 Acute vulvovagi nitis;Rec orded Elsewhere : No Locati on: [facility] So urce: EHR Chron ic: N Practic e ID: 0001 Bill able Time: 01:00:00 PM Ashley headley [facility] 14:24:12 Pelvic and perineal pain 626803878 Completed 201701/14/2021 Pelvic and perineal pain;Kal rded Elsewhere : No Locati on: [facility] So urce: EHR Chron ic: N Practic e ID: 0001 Bill able Time: 11:30:00 AM Ashley Hunter [facility] 14:24:23 Vaginola bial hernia Completed 201701/14/2021 Other specified noninflam matory disorders of vagina;Re corded Elsewhere : No Locati on: [facility] So urce: EHR Chron ic: N Practic e ID: 0001 Bill able Time: 11:30:00 AM Ashley Hunter [facility] 14:24:29 Syphilis test finding 648254814 Completed 201701/14/2021 Encntr screen for infection s w sexl mode of transmiss ;Recorded Elsewhere : No Locati on: [facility] So urce: EHR Chron ic: N Practic e ID: 0001 Bill able Time: 11:30:00 AM Ashley Hunter [facility] 14:24:27 Infectio n screenin g Completed 201701/14/2021 Encounter for screening for oth infec/par astc diseases; Recorded Elsewhere : No Locati on: [facility] So urce: EHR Chron ic: N Practic e ID: 0001 Bill able Time: 11:30:00 AM Ashley Hunter null, [facility] 14:24:20 Connor infectio n of genital region Completed 201801/14/2021 Candidal vulvovagi nitis;Rec orded Elsewhere : No Locati on: [facility] So urce: EHR Chron ic: N Practic e ID: 0001 Bill able Time: 04:00:00 PM Ashley headley [facility] 14:24:[address] Concept Completed 201901/14/2021 Encntr for community facilitator exam (general) (routine) w/o abn findings; Recorded Elsewhere : No Locati on: [facility] So urce: EHR Chron ic: N Practic e ID: 0001 Bill able Time: 09:45:00 AM Ashley headley [facility] 14:24:26 Problem Notes None recorded. Procedures Surgical History Date Name Laterality Status Provider Name and Address Organization Details Recorded Time 08/30/19 25 Date of Last Pap Smear completed [facility] 12/23/2024 12:37:47 08/28/19 25 Date of Last Mammogram completed [facility] 08/29/2024 10:47:15 04/22/19 25 colonoscopy completed [facility] 08/29/2024 10:51:38 03/01/20 24 biopsy of breast completed [facility] 08/29/2024 10:52:59 04/17/19 17 Breast reduction completed Ashley [facility] 01/14/2021 14:57:49 04/17/19 14 Partial Hysterectomy completed [facility] 11/09/2020 09:42:54 Imaging Results None recorded. Procedure Notes None recorded. Medical Equipment None Reported. Allergies No known drug allergies Medications Name Sig Start Date Stop Date Status Note LastModified by Organization Details LastModified Time atorvasta tin 40 mg tablet take 1 tablet by oral route every day 01/14 completed Prescrib ed Elsewher e: Yes Loca tion: Prateek whitaker [facility] odify By: [email or web address] Encount er DateTime : 04/20/19 04:00:00 PM Not Available Not Available Not Available metformin 500 mg tablet TAKE 1 TABLET BY MOUTH TWICE DAILY active Not Available Not Available No t Available terconazo le 0.4 % vaginal cream insert 1 applicat orful by vaginal route every day for 7 days at bedtime 04/26 completed Prescrib ed Elsewher e: No Locat ion: [facility] sherman [facility] odify By: karina bolden DateTime : [...] e: No Locat ion: Prateek whitaker [facility] odify By: nhung bolden DateTime : 09/04/19 19 01:16:23 PM Not [...] e: No Locat ion: Prateek whitaker [facility] odify By: mike prasad DateTime : 09/04/19 19 01:16:23 PM Not Available Not Available Not Available famotidin e 20 mg tablet 11/23 completed Not Available Not Available Not Available [employer] Ultra Test strips USE TO CHECK BLOOD [...] Not Available fluoxetin e 10 mg capsule Take 1 capsule every day by oral route. 2024 active Not Available Not Available Not Avai lable omeprazol e 20 mg capsule,d elayed release active Not Available Not Available Not Available monteluka st 10 mg tablet 07/29 completed Not Available Not Available Not Available Valtrex 500 mg tablet take 1 tablet by oral route every day suppress prince therapy 2024 active Not Available Not Available Not Avai lable gabapenti n 100 mg capsule 08/29 completed [...] the affected area(s) 04/20 completed Prescrib ed Elsewher e: No Locat ion: [facility] odify By: [email or web address] Encount er DateTime : 02/09/20 17 01:00:00 PM Not Available Not Available Not Available fluticaso ne propionat e 50 mcg/actua tion nasal spray,parker pension 11/23 completed Not Available Not Available Not Available metformin ER 500 mg tablet,ex tended release 24 hr take 2 tablet by oral route every day with the evening meal 02/11 completed Prescrib ed Elsewher e: Yes Loca tion: [facility] odify By: ron prasad DateTime : 10/24/19 [...] Prescrib ed Elsewher e: Yes Loca tion: [facility] odify By: elizabeth wesley DateTime : 10/30/19 [...] day with meals 02/08 [facility] odify By: elizabeth wesley DateTime : 10/30/19 16 01:45:00 PM Not Available Not Available Not Available nitrofura ntoin monohydra te/macroc rystals 100 mg capsule TAKE 1 CAPSULE BY MOUTH EVERY 12 HOURS FOR 5 DAYS 12/23 completed Not Available Not Available Not Available [facility] [place] [facility] 2.65 % nasal spray [...] Updated DateTime 08/29/2024 158.75 cm 35.8 kg/m2 95436.88 g 156/89 mm[Hg] [facility] 08/29/2024 10:44:12 Date Recorded Body height Body mass index (BMI) Body weight Systolic And Diastolic Provider Name and Address Organization Details Last Updated DateTime 09/23/2024 158.75 cm 35.3 kg/m2 99038.1 g 117/80 mm[Hg] [facility] 09/23/2024 15:05:38 Date Recorded Body height Body mass index (BMI) Body weight Systolic And Diastolic Provider Name and Address Organization Details Last Updated DateTime 12/23/2024 158.75 cm 35.5 kg/m2 18999.7 g 141/88 mm[Hg] [facility] 12/23/2024 12:36:55 Date Recorded Body height Body mass index (BMI) Body weight Systolic And Diastolic Provider Name and Address Organization Details Last Updated DateTime 01/30/2025 158.75 cm 36.5 kg/m2 62222.25 g 138/87 mm[Hg] Jenelle Bennett [facility] 01/30/2025 11:00:24 Social History Question Answer Notes LastModified by Organizat ion Details LastModified Time Tobacco Smoking Status Never Smoker Ashley Hunter [facility] 01/14/2021 14:27:15 Do You Have An Advance Directive? No [email or web address] Information n ot available 12/23/2024 How Many Years Have You Consumed Alcohol? 0 [email or web address] Information not available 12/23/2024 Are You Blind [...] Or The Highest Degree You Have Received? [id number] [email or web address] Information not available 12/23/2024 Do You Use Protection During Sex? Usually [email or web address] Information not available 12/23/2024 Do You Use Your Seat Belt Or Car Seat Routinely? Yes Information not available 01/14/2021 Do You Have Smoke And Carbon Monoxide Detectors In Your Home? Yes Information not available 01/14/2021 How Much Tobacco Do You Smoke? No [email or web address] Information not available 12/23/2024 Do You Use [...] is your level of alcohol consumption? None [email or web address] Information not available 12/23/2024 Are you able to walk independently without assistance or assistive devices? [email or web address] Information not available 01/14/2021 Are you able to care for yourself independently? 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 No Information not available 07/29/2021 What is your exercise level? None [email or web address] Information not available 12/23/2024 Mental Status Question Answer Note LastModified by Organization D etails LastModified Time Do you feel stressed (tense, restless, nervous, or anxious, or unable to sleep at night)? [id number] Information not available 01/14/2021 Family History Relationship Description Onset Age of this Age Resolved Age Notes LastModified by Organization Details LastModified Time Mother Diabetes mellitus Not available 2020 14:26:48 Mother Malignant neoplasm of colon [email or web address] Not available 2024 10:49:52 Notes:Mother: Diabetes gordo [...] ICD10 Code Diagnosis IMO Codes Diagnosis Note [id number] Rhonda [facility] [address] [address] 01/14/2021 14:25:42 01/14/2021 16:34:13 Gynecologic examination 60927583 Z01.419 Suggested Calcium with Vitamin D 1200-1500m g daily. Patient advised to get an annual flu shot in the fall and she could obtain at [facility] or [facility]. Also to obtain TDap vaccinatio n if [...] std screenmamm o ordered Pain in pelvis 13274409 R10.2 Likely pain she is feeling is from left hip/pirifo rmis issues that are aggravatin g her lower back and sciatic nerve. However, some pain on left adnexal area so will ensure no issues & update TVUS.She is due to start PT next week for her back/sciat ic nerve pain.Heat/ ice/biofre elder [id number] Yosi Mercer MD [facility] [address] [address] 07/05/2021 13:45:37 07/05/2021 14:56:52 Vaginitis 10671211 N76.0 this patient is a 45-year-ol d [...] antifungal . She will follow-up as needed. [id number] BRIEN Reynolds [facility] [address] [address] 07/29/2021 16:12:28 07/29/2021 17:35:48 Venereal disease screening 246744807 Z11.3 Sexually t ransmitted infectious disease 2226511 A64 Urinary symptoms 1454926 08 R39.9 Acute urin swathi tract infection 801526420 N39.0 Urinary burning, pain, and frequency for [...] after UTI treatment will need a urology consult.Sh e should call the office if symptoms [...] patient was 35 minutes. Pain in pelvis 81294175 R10.2 [id number] Yosi Mercer MD [facility] [address],[place] [address] 08/04/2021 18:01:45 08/04/2021 18:41:06 Pain in pelvis 85831277 R10.2 [id number] Dorys Kwon [facility] [address],[place] [address] 08/09/2021 10:02:37 08/09/2021 10:38:44 Pain in pelvis 27537137 R10.2 Blood in urine 85848071 R31.9 [id number] Rhonda [facility] [address],[place] [address] 02/11/2022 15:52:12 02/11/2022 16:50:19 Urinary symptoms 551608603 R39.9 Chronic in terstitial cystitis 012944235 N30.10 Suspect CIC on exam, Hx & [...] counseling and review of plan of care. [id number] Rhonda [facility] [address],[place] [address] 11/23/2022 18:01:45 11/24/2022 16:40:09 Genital herpes simplex 21362320 A60.9 Suspect HSV outbreakHx of HSV in the past but no outbreaks for a very long time.Rx sentDeclin ed need for std screen Counseled on medication R/B's, Most common side effects, & use. All questions were answered to patient satisfacti on. Labial cyst 285588506 N9 0.7 We agreed to treat labial cyst today.Rx sentCounse led on medication R/B's, Most common side effects, & use. All questions were answered to patient satisfacti on. Return if any further issues or persists. Time spent in visit is a total of 20mins with at least 50% of visit consisting of counseling and review of plan of care. Vaginitis 33559165 N76.0 Suspect yeast on examRx sent Counseled on medication R/B's, Most common side effects, & use. All questions were answered to patient satisfacti on. [id number] [facility] [address],[place] [address] 12/07/2022 16:10:48 12/07/2022 17:41:11 Genital herpes simplex [id number] A60.9 Wants to do suppressiv e therapy as previously discussed. Rx sent Counseled on medication R/B's, Most common side effects, & use. All questions were answered to patient satisfacti on. Time spent in visit is a total of 20 mins with at least 50% of visit consisting of counseling and review of plan of care. Vaginitis 11688197 N76.0 RF sent for PRN use [id number] Dorys Kwon ANUJA M[facility] [address],[place] [address] 06/09/2023 10:34:56 06/09/2023 11:43:31 Vaginitis 24013948 N76.0 vaginitis/ STI panel sentsuspec t BV/yeastrx sent, r/b/a reviewedvu lvar care guidelines discussedR TC for WWE or sooner if needed Time spent in visit is a total of 22mins with at least 50% of visit consisting of counseling and review of plan of care. Venereal d isease screening 549992392 Z11.3 [id number] Yosi Mercer MD [facility] [address],[place] [address] 12/19/2023 09:28:17 12/19/2023 09:56:41 Urinary symptoms 399418008 R39.9 [id number] Dorys Kwon ANUJA [facility] [address],[place] [address] 08/29/2024 10:33:32 08/29/2024 13:34:20 Gynecologic examination 82988618 Z01.632 0710897 WWEPap - done todaySTI screen - declinedMa mmogram [facility] labs - UTD/PCPRTC in 1 yr or [...] All questions have been answered. Acute vaginitis 87262795 N76.0 08486 rx sent for yeastvulva r care guidelines reviewed [id number] Dorys Kwon ANUJA [facility] [address],[place] [address] 09/23/2024 14:41:19 09/24/2024 13:31:16 Vulval irritation 397845025 N90.89 4768325 vaginitis/ STI panel sentvulvar care guidelines discussedr x sent for nystatin-t riamcinolo ne Genital he rpes simplex 53237720 A60.00 57660019 rx sent for valtrex, use with symptoms of outbreak Time spent in visit is a total of 20 mins with at least 50% of visit consisting of counseling and review of plan of care. Increased frequency of urination 900571858 R35.0 86168 UA done, cx sent [id number] Yosi Mercer MD [facility] [address],[place] [address] 10/01/2024 12:08:30 10/01/2024 13:06:58 Pain in pelvis 99370862 R10.2 22997 [id number] BRIEN Reynolds [facility] [address],[place] [address] 12/23/2024 12:20:58 12/24/2024 09:44:28 Vulval irritation 165959890 N90.89 7061810 Furuncle of vulva 061910 006 N76.4 583419 Acute vaginitis 50522316 N76.0 26355 vaginitis panel sentvulvar care guidelines discussedr x sent for yeast , r/b/a reviewedRT C if symptoms persist past treatment Genital he rpes simplex 19075445 A60.00 refills sent for valtrex, use with symptoms of outbreak BP precaution s discussed Time spent in visit is a total of 25 mins with at least 50% of visit consisting of counseling and review of plan of care. 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.A 225302 Reviewed management optionspre viously on fluoxetine , she would like to restartrx sent , r/b/a reviewedRT C for med check in 3 monthsPrec autions reviewed Time spent in visit is a total of 30 mins with at least 50% of visit [...] Rivera Member ID Guarantor Name 09/17/2024 1 [employer] Roshonda Zechariah Dominguez [id number] Johanna Dominguez 09/17/2024 3 [facility] Johanna Dominguez [id number] Johanna Dominguez 09/17/2024 1 [facility] [id number] Blazea Zechariah Dominguez [id number] PU [id number] PU Johanna Dominguez 09/17/2024 1 [facility] (MEDICAID HMO) [id number] Johanna Dominguez [id number] Johanna Apple Dominguez 01/14/2021 1 *SELF PAY* Ro joel Apple Dominguez 09/17/2024 3 [employer] - [employer] - DOS PRIOR TO 04.17.2023 [id number] Johanna Apple Dominguez [id number] Johanna Aplpe Dominguez 09/17/2024 2 [place] [facility] Johanna Dominguez [id number] Johanna Apple Dominguez 01/29/2025 1 [facility] [id number] Johanna Apple Dominguez [id number] PU Johanna Apple Dominguez Notes Date Note Type Note Provider [...] vaginal itching/discharge BRIEN Reynolds [address], [place], [address], [facility] 08/29/2024 13:29:18 5 text/htm l 48yopresents for evaluation of vulvar irritationnoticed symptoms after using iniguez for hair removalfrequent urination over the past 2 wksh/o genital HSV, outbreaks a few times per yr neg dysurianeg n/v/fneg pelvic painneg d/c, odors, itching neg lesions, neg d/c or odors, neg pelvic pain BRIEN Reynolds [address], [place], [address], [facility] 09/24/2024 12:08:25 5 text/htm l 49yoPresents with c/o vulvar irritation. HSV outbreak started 5 days ago, currently taking valtrex. Very itchy/sore, scratched one of the lesion and it has been tender ever since.no new partnersneg n/v/fneg flu - like symptomsneg d/c, odors BRIEN Reynolds [address], [place], [address], [facility] 12/24/2024 09:20:43 5 text/htm l Vaginal/Vulvar ProblemReported by Patient 49yoHere today with c/o frequent HSV outbreaks. One per month over the last 3 months. Has been on suppressive therapy in the past which helped. Experiencing anxiety/depression symptoms over the past few months that she feels like is making outbreaks worse. Increased family stress, caring for mother with colon cancer. Has been on fluoxetine in the past and had symptom improvement. Denies ever thoughts of harming self or others BRIEN Reynolds [address], [place], [address], [facility] 01/30/2025 12:41:38 OBGyn Episode Ob Episode Information Episode Created Date Number of Fetuses Patient Bloodtype Patient rh Status Prepregnancy Weight lbs Domestic Partner Domestic Partner Phone Father Name Underwear Hemmer Status 11/10/19 21 1 CLOSED Fetus Data First Name Last Name Admitted to NICU Weight (g) Sex Living Outcome Pediatric Complications Fetus ID Race Codes Race Delivery Type 2834.95 M Full Term 32141 Vaginal Delivery Daniel Calculation Initial Daniel Date [...] Domestic Partner Domestic Partner Phone Father Name Underwear Hemmer Status 11/10/19 21 1 CLOSED Fetus Data First Name Last Name Admitted to NICU Weight (g) Sex Living Outcome Pediatric Complications Fetus ID Race Codes Race Delivery Type 3175.14 4 F Full Term 53758 Vaginal Delivery Daniel Calculation Initial Daniel Date [...] Domestic Partner Domestic Partner Phone Father Name Underwear Hemmer Status 11/10/19 21 1 CLOSED Fetus Data First Name Last Name Admitted to NICU Weight (g) Sex Living Outcome Pediatric Complications Fetus ID Race Codes Race Delivery Type 2834.95 M Full Term 68397 Vaginal Delivery Daniel Calculation Initial Daniel Date Initial Exam Date Initial Exam Provider Initial Ultrasound Date Last Menstrual Period Date Ultra Sound Weeks Gestation 0 Eighteen To Twenty Week Dnaiel Update Ultra Sound Date Fundal Height At [...] Domestic Partner Domestic Partner Phone Father Name Underwear Hemmer Status 11/10/19 21 1 CLOSED Fetus Data First Name Last Name Admitted to NICU Weight (g) Sex Living Outcome Pediatric Complications Fetus ID Race Codes Race Delivery Type 2976.47 0704 M Full Term 12794 Vaginal Delivery Daniel Calculation Initial Daniel Date [...]
--- OUTSIDE RECORDS SUMMARY | 2025-02-06 17:20 | XMS_ITS | Encounter Summary ---
Author Organization [facility] Address [facility] [place] [address] Care Team Providers Care Operations Research Scientist Name Role Phone Viridiana Zaidi CONCRETE TECHNICIAN Primary Care Provider [phone] Encounter Details Date Type Department Care Team (Late Contact Info) Description 12/31/2024 [employer] Message Enc [facility] Family [address] [phone] [facility] Provider 3 mo follow up / annual physical Social History Tobacco Use Types Packs/Day Years [...] Department Care Team (Late Contact Info) Description 02/11/2025 8:40 AM CDT Allied Health/Nurse Visit [facility] Family Medicine [facility] [address] [facility] [address] [place], [place] [phone] Viridiana Zaidi NP [address] [place] [phone] 05/08/2025 9:20 AM CAD SPECIALIST Office Visit [facility] [place] [facility] [place] [address] [facility] [address] [place] [address] Viridiana Zaidi NP [address] [place] [address] documented as of this encounter Visit Diagnoses Not on filedocumented in this encounter Additional Health Concerns Infection Onset Date Last Indicated Resolved Time MRSA 11/21/2016 11/21/2016 documented as of this encounter Care Teams Operations Research Scientist Relationship Specialty Start Date End Date Viridiana Zaidi NP [address] [place] [address] PCP - General NURSE PRACTITIONER 06/17/21 documented as of this encounter
--- OUTSIDE RECORDS SUMMARY | 2025-02-06 17:20 | XMS_ITS | Clinical Summary ---
Author Organization [facility] Arnaldolorenablossom deirdre Shayy Address [address] [place] [address] Care Team Providers Care Tire Trucker Name Role Phone Unavailable Primary Care Provider [...] Type Department Care Team Description 01/06/2025 Telephone [facility] Oncology and Hematology - [address] [facility] [address] [place] [address] Nils De Oliveira MD labs [...] 157.5 cm (5' 2) 03/19/2024 1:13 PM DIE SETTER Body Mass Index 36.1 03/19/2024 1:13 PM DIE SETTER Plan of Treatment Health Maintenance Due Date [...] 05/23/2034 05/23/2024 Colorectal Cancer Screening 05/23/2034 Insurance [facility] [id number]
--- OUTSIDE RECORDS SUMMARY | 2025-02-06 17:20 | XMS_ITS | Encounter Summary ---
Author Organization [facility] Address [address] [place] [address] Care Team Providers Care Analytics Intern Name Role Phone Viridiana Zaidi BURRER MACHINE Primary Care Provider [phone] [phone] Encounter Details Date Type Department Care Team (Late st Contact Info) Description 05/30/2024 MyChart Message Enc [facility] Family Medicine [facility] [address] [place] [phone] Viridiana Zaidi NP [address] [phone] Bladder Social History Tobacco Use Types Packs/Day [...] 02/11/2025 8:40 AM CDT Allied Health/Nurse Visit [facility] Family Medicine [facility] [address] [phone] Viridiana Zaidi NP [address] [place] [address] 05/08/2025 9:20 AM BRAZER ASSEMBLER Office Visit [facility] Family Medicine - [place] [address] [facility] [address] [place] [address] Viridiana Zaidi NP [address] [place] [address] documented as of this encounter Visit Diagnoses Not on filedocumented in this encounter Additional Health Concerns Infection Onset Date Last Indicated Resolved Time MRSA 11/21/2016 11/21/2016 documented as of this encounter Care Teams Analytics Intern Relationship Specialty Start Date End Date Viridiana Zaidi NP [address] [place] [address] PCP - General NURSE PRACTITIONER 06/17/21 documented as of this encounter
--- OUTSIDE RECORDS SUMMARY | 2025-02-06 17:20 | XMS_ITS | Clinical Summary ---
Author Organization [facility] Path Address [address] [place] [address] Care Team Providers Care Road Mechanic Name Role Phone Farhad Fuchs MD Primary Care Provider [phone] Source Comments [facility],non-owned Affiliates and Associated Physician Practices is amultiple site organization consisting of ambulatory clinics and hospital sitesin [place], [place], [place] and [place]. This disclosure is being madepursuant to the Care Everywhere program and may not contain all information available regarding this patient. Last updated 18.[facility] Path Allergies Active Allergy Reactions Criticality Noted Date [...] on file Legal Sex Female 6:20 AM FRONT FACER Gender Identity Not on file Sexual Orientation Not on file Last Filed Vital Signs Vital Sign Reading Time Taken Comments Blood Pressure 128/76 03/09/2022 10:42 AM FRONT FACER Pulse 82 01/08/2016 7:54 AM CDT Temperature 36.6 C (97.8 F) 03/09/2022 10:42 AM FRONT FACER Respiratory Rate 16 01/08/2016 7:54 AM CDT Oxygen Saturation 100% 01/08/2016 7:54 AM CDT Inhaled Oxygen Concentration - - Weight 85.1 kg (187 lb 9.6 oz) 03/09/2022 10:42 AM FRONT FACER Height 157.5 cm (5' 2) 03/09/2022 10:42 AM FRONT FACER Body Mass Index 34.31 03/09/2022 10:42 AM FRONT FACER Plan of Treatment Health Maintenance Due Date [...] - 106 mg/dL 01/08/2016 5:06 AM CDT [facility] Sodium 139 136 - 145 mmol/L 01/08/2016 5:06 AM CDT [facility] Potassium 3.8 3.5 - 5.1 mmol/L 01/08/2016 5:06 AM CDT [facility] Chloride 104 98 - 107 mmol/L 01/08/2016 5:06 AM CDT [facility] CO2 28 22 - 31 mmol/L 01/08/2016 5:06 AM CDT [facility] Calcium 8.9 8.5 - 10.1 mg/dL 01/08/2016 5:06 AM CDT [facility] Anion Gap 7 5 - 20 mmol/L 01/08/2016 5:06 AM CDT [facility] BUN 12 7 - 21 mg/dL 01/08/2016 5:06 AM CDT [facility] Creatinine 0.95 0.50 - 1.30 mg/dL 01/08/2016 5:06 AM CDT [facility] eGFR by MDRD >60 >60 mL/min/1.7 3m2 01/08/2016 5:06 AM CDT [facility] eGFR by MDRD >60 >60 mL/min/1.7 3m2 01/08/2016 5:06 AM CDT [facility] Blood BLOOD SPECIMEN / Unknown 01/08/2016 4:02 AM CDT 01/08/2016 4:35 AM CDT Michaela Winters MD LAB - CHEMISTRY ORDERABL ES Final Result [facility] [address] [place] [address] from Last 3 Months or Most Recently Relevant to Health Maintenance Insurance [facility] MEDICAID - OUT OF STATE Advance Directives * Full Code (Latest Code Status on File) Date Activated Date Inactivated Comments 01/07/2016 7:16 PM 01/08/2016 12:15 PM * Full Code Date Activated Date Inactivated Comments 01/07/2016 3:44 PM 01/07/2016 7:[address] Mechanic Relationship Specialty Start Date End Date Farhad Fuchs MD PCP - General 01/15/18
--- OUTSIDE RECORDS SUMMARY | 2025-02-06 17:21 | XMS_ITS | Clinical Summary ---
Author Organization [facility] Address [address] [place] [address] Phone Care Team Providers Care Hoop Bending Machine Operator Name Role Phone Provider, Unknown Primary Care Provider Unavaila ble Social History Tobacco Use Types Packs/Day Years Used Date Smoking Tobacco: Never Assessed Comments Unknown Sex and Gender Information Value Date Recorded Sex Assigned at Not on file Legal Sex Female 5:24 PM CDT Gender Identity Not on file Sexual Orientation Not on file Plan of Treatment Not on file Care Teams Hoop Bending Machine Operator Relationship Specialty Start Date End Date Provider, Unknown UNKNOWN PCP - General 10/12/16
--- OUTSIDE RECORDS SUMMARY | 2025-02-06 17:21 | XMS_ITS | Encounter Summary ---
Author Organization [facility] Address [address] [place] [address] Care Team Providers Care Mirror Polisher Name Role Phone Viridiana Zaidi CHANDELIER MAKER Primary Care Provider [phone] Encounter Details Date Type Department Care Team (Late st Contact Info) Description 12/12/2023 MyChart Message Enc [facility] Family Medicine [facility] [address] [place] [phone] Viridiana Zaidi NP [address] [address] Anemia Social History Tobacco Use Types Packs/Day [...] 02/11/2025 8:40 AM CDT Allied Health/Nurse Visit [facility] Medicine [facility] [address] [phone] Viridiana Zaidi NP [address] [place] [address] 05/08/2025 9:20 AM BATTERY CONTAINER INSPECTOR Office Visit [facility] Family [facility] [place] [address] [facility] [address] [place] [address] Viridiana Zaidi NP [address] [place] [address] documented as of this encounter Visit Diagnoses Not on filedocumented in this encounter Additional Health Concerns Infection Onset Date Last Indicated Resolved Time MRSA 11/21/2016 11/21/2016 documented as of this encounter Care Teams Mirror Polisher Relationship Specialty Start Date End Date Viridiana Zaidi NP [address] [place] [address] PCP - General NURSE PRACTITIONER 06/17/21 documented as of this encounter
--- OUTSIDE RECORDS SUMMARY | 2025-02-06 17:21 | XMS_ITS | Encounter Summary ---
Author Organization [facility] Address [facility] [place] [address] Care Team Providers Care District Adviser Name Role Phone Viridiana Zaidi ACCOUNT RECEIVABLE CLERK Primary Care Provider [phone] Encounter Details Date Type Department Care Team (Late Contact Info) Description 12/01/2022 [employer] Message Enc [facility] [address] [facility] [address] [place] [address] [facility] Provider 1 week f/u Social History Tobacco [...] 02/11/2025 8:40 AM CDT Allied Health/Nurse Visit [facility] Medical [facility] Family Medicine [facility] [address] [facility] [address] [place] [address] Viridiana Zaidi NP [address] [place] [address] 05/08/2025 9:20 AM YACHT RIGGER Office Visit [facility] Family Medicine [place] [address] [facility] [address] [place] [address] Viridiana Zaidi NP [address] [place] [phone] documented as of this encounter Visit Diagnoses Not on filedocumented in this encounter Additional Health Concerns Infection Onset Date Last Indicated Resolved Time MRSA 11/21/2016 11/21/2016 documented as of this encounter Care Teams District Adviser Relationship Specialty Start Date End Date Viridiana Zaidi NP [address] [place] [address] PCP - General NURSE PRACTITIONER 06/17/21 documented as of this encounter
--- OUTSIDE RECORDS SUMMARY | 2025-02-06 17:21 | XMS_ITS | Encounter Summary ---
Author Organization [facility] Address [address] [place] [address] Care Team Providers Care Elementary Art Teacher Name Role Phone Viridiana Zaidi SUPERINTENDENT TRANSPORTATION Primary Care Provider [phone] Encounter Details Date Type Department Care Team (Late Contact Info) Description 10/12/2022 [employer] Message Enc [facility] Medical Group [facility] [address] [place], [place] [address] [facility] Provider Air Quality Message Social History [...] 02/11/2025 8:40 AM CDT Allied Health/Nurse Visit [facility] Family Medicine - [place] [address] [facility] [address] [place], [place] [phone] Viridiana Zaidi NP [address] [place] [address] 05/08/2025 9:20 AM HAY STACKER Office Visit [facility] Family Medicine [place] [address] [facility] [address] [place] [address] Viridiana Zaidi NP [address] [place], [place] [phone] documented as of this encounter Visit Diagnoses Not on filedocumented in this encounter Additional Health Concerns Infection Onset Date Last Indicated Resolved Time MRSA 11/21/2016 11/21/2016 documented as of this encounter Care Teams Elementary Art Teacher Relationship Specialty Start Date End Date Viridiana Zaidi NP [address] [place] [address] PCP - General NURSE PRACTITIONER 06/17/21 documented as of this encounter
--- OUTSIDE RECORDS SUMMARY | 2025-02-06 17:21 | XMS_ITS | Encounter Summary ---
Author Organization [facility] Address [facility] [place] [address] Care Team Providers Care Remote Inpatient Coder Name Role Phone Viridiana Zaidi WOOD BARKER Primary Care Provider [phone] Encounter Details Date Type Department Care Team (Late Contact Info) Description 01/04/2023 [email or web address] Message Enc [facility] Family Medicine [address] [address] [facility] Provider Reply from Viridiana Social History Tobacco [...] 02/11/2025 8:40 AM CDT Allied Health/Nurse Visit [facility] Medical [facility] Family Medicine [facility] [address] [facility] [address] [place] [address] Viridiana Zaidi NP [address] [place] [address] 05/08/2025 9:20 AM DIVERSITY INTERN Office Visit [facility] Family Medicine - [place] [address] [facility] [address] [place] [address] Viridiana Zaidi NP [address] [place] [address] documented as of this encounter Visit Diagnoses Not on filedocumented in this encounter Additional Health Concerns Infection Onset Date Last Indicated Resolved Time MRSA 11/21/2016 11/21/2016 documented as of this encounter Care Teams Remote Inpatient Coder Relationship Specialty Start Date End Date Viridiana Zaidi NP [address] [place] [address] PCP - General NURSE PRACTITIONER 06/17/21 documented as of this encounter
--- OUTSIDE RECORDS SUMMARY | 2025-02-06 17:21 | XMS_ITS | Patient Health Record ---
Author Organization [facility] Address [address] [facility] [address] [place], [place] [id number] Care Team Providers Care School Of Nursing Director Name Role Phone Arnaldo Tuttle DO Unavailable [phone] Elaine Sweeney Unavailable [phone] Allergies No Known Allergies Reason For Referral [...] NEEDED Oral; Duration: 9 Days Active Nystatin-Triamcinolone 397930-4.1 UNIT/GM External; Duration: 15 Days Active Assessments Encounter Date Diagnosis (ICD Code) Assessment Notes Treatment Notes Treatment Clinical Notes Section Notes 01/15/2025 Other Plan Of Treatment No Information Insurance Providers Payer Name Payer Address Payer Phone Subscriber Number Group Number Insured Name Patient Relationship to Insured Coverage Start Date Coverage End Date [facility] [address] [address] [place] [address] [id number] Johanna Dominguez Self - patient is the insured Medical (General) History Medical History History ICD Code Date Unknown Anemia Date Unk nown Diabetes mellitus (CMS/HCC) Date Unknown HTN (hypertension) Date Unknown Hyperlipidemia Surgical History Surgery Date(Month/Year) 2016 Hx breast reduction Com ment: Cem 2013 Hx hysterectomy Comment: [facility]
[2025-02-06 17:23] VITALS: BP 147/83; PULSE 93; RESP 18; TEMP 36.6; O2SAT 99
--- NOTE | 2025-02-06 17:25 | ED.URI ---
HPI - URI/Sore Throat General Chief Complaint: Upper Respiratory Infection Stated Complaint: Cold Like Time Seen by Provider: 02/06/25 17:36 Source: patient and RN notes reviewed Mode of arrival: ambulatory Limitations: no limitations History of Present Illness HPI Narrative: 49-year-old female presents with concern for 3 day history of hoarse voice, sore throat, nasal congestion and drainage, cough. She has felt feverish for 3 days. She has been taking Mucinex out relief. MD elicited complaint: cough Related Data Home Medications ?Medication ?Instructions ?Recorded ?Confirmed ?Last Taken ?Type metoprolol tartrate 100 mg tablet 100 mg PO DAILY 09/09/24 02/06/25 09/08/24 History Allergies Allergy/AdvReac Type Severity Reaction Status Date / Time No Known Allergies Allergy Verified 02/06/25 17:22 Review of Systems Review of Systems: CONSTITUTIONAL: Reports malaise, feeling feverish EYES: Denies visual changes, redness, or discharge. ENT: Reports rhinorrhea, congestion, and sore throat. CARDIOVASCULAR: Denies chest pain, palpitations, or edema. RESPIRATORY: Reports cough. Denies dyspnea. GASTROINTESTINAL: Denies abdominal pain, nausea, vomiting, diarrhea SKIN: Denies rash or itching. MUSCULOSKELETAL: Reports myalgia. NEUROLOGIC: Denies headache. All systems reviewed & are unremarkable except as noted in HPI and below PMFSH Past Medical History Medical History Gastroesophageal reflux disease Hyperlipidemia Genital herpes Hypovitaminosis D Bakers cyst Allergic rhinitis Asthma Hepatic steatosis Pre-diabetes Hypertension Surgical History Surgical History History of tubal ligation History of hysterectomy History of reduction mammoplasty Family History Family History Mother Hypertension Diabetes mellitus Family history of alcoholism Family history of Alzheimer's disease Social History Social History Social History: Surrogate medical decision maker: Mello Goodard, spouse. Code status: Full code. Smoking status: Never smoker Second hand tobacco smoke exposure: No Alcohol intake: never Substance use: never Substance use type: does not use Do You Feel Safe in your Home?: Yes Lack of Transportation: No Lack of Food: Never True Current Housing: I Have Housing Concerned About Future Housing: No Difficulty Paying Gas/Electric Bills: No Difficulty Paying for Meds: No Currently Unemployed: No Education: Associate Degree Difficulty w/ Childcare or Family Care: No Living arrangements: with family Additional living arrangements comments: Lives with family in [place]. Additional occupation/education comments: [employer] in [place]. Spiritual care concerns: No Comments At time of signature, agree with nursing past medical, surgical, social and family history. There is no relevant family history pertinent to the presenting complaint Exam Narrative: GENERAL: Well-appearing, well-nourished, and in no acute distress. HEAD: Normocephalic EYES: PERRLA, conjunctivae clear ENT: Nares clear, turbinates edematous and erythematous, clear discharge. Mucous membranes moist. TM pearly morrow with dull light reflex bilaterally; no tragal tenderness. Oropharynx not erythematous without lesions. Tonsils not enlarged and without exudate, no drooling, hoarse voice, no trismus, uvula midline. NECK: Supple. No lymphadenopathy CHEST: Clear to auscultation, breath sounds equal. No wheezing, rhonchi, rales, or stridor. No respiratory distress, speaks in full sentences. HEART: Regular rate and rhythm. No murmur heard. SKIN: Warm, dry, no rash. NEURO: Alert and oriented x3. PSYCH: Normal mood and affect Course Course Emergency Course: Patient is aware of diagnosis, understands and agrees to treatment plan. Anticipatory guidance given. Patient agrees to follow-up as directed and is aware of reasons to seek care at the emergency department. Portions of this record may have been created with voice recognition software Level of Care: Express Care Visit Vital Signs Vital signs: Vital Signs Temperature 97.8 F 02/06/25 17:23 Pulse Rate 93 02/06/25 17:23 Respiratory Rate 18 02/06/25 17:23 Blood Pressure 147/83 H 02/06/25 17:23 Pulse Oximetry 99 02/06/25 17:23 Oxygen Delivery Room Air 02/06/25 17:23 Temperature 97.8 F 02/06/25 17:23 Pulse Rate 93 02/06/25 17:23 Respiratory Rate 18 02/06/25 17:23 Blood Pressure 147/83 H 02/06/25 17:23 Pulse Oximetry 99 02/06/25 17:23 Oxygen Delivery Room Air 02/06/25 17:23 Reviewed. MDM - URI/Sore Throat MDM Narrative Medical decision making narrative: Differential diagnosis considered: Farley virus, strep pharyngitis, allergic rhinitis, upper respiratory tract infection, sinusitis, rhinosinusitis, nasopharyngitis. viral pharyngitis, otitis media, otitis externa, pneumonia, bronchitis, viral cough syndrome, viral syndrome, and influenza. Exam findings show no acute concerns or changes; patient is non-toxic appearing and is in no distress. Patient is appropriate for outpatient treatment and follow-up. Lab Data Attestation: I reviewed the patient's lab results. Critical Care Time Critical Care Time Critical Care Time: No Discharge Plan Discharge Clinical Impression: Bronchitis Patient Disposition: Home Condition: Stable Instructions: Acute Bronchitis (ED) Additional Instructions: Viral illness may last between 7-21 days; antibiotics do not cure viral illness and are NOT recommended at this time. Recommend antihistamine such as Benadryl at night time and Zyrtec or Elizabeth during the day Cough syrup may cause drowsiness; avoid driving or take it at night time. Use inhaler as needed for cough, wheezing, shortness of breath or chest tightness. Also, recommend symptomatic treatment includes: rest, fluids, and increase humidity of the air at home. Recommend Acetaminophen as directed on the bottle to reduce fever, pain, headache. Avoid smoking/second-hand smoke. Please schedule a follow-up visit with your personal physician for further evaluation and treatment within 3-5days. Including recheck and discussion of your blood pressure. If your symptoms persist, change or worsen significantly before you can contact your personal physician then please, without delay, go to the emergency department for further evaluation. Patient Language: Maltese Prescriptions: New promethazine-DM 6.25-15 mg/5 mL syrup 5 ml PO Q4-6H PRN (Reason: cough) Qty: 120 0RF prednisone 20 mg tablet 40 mg PO DAILY 5 Days Qty: 10 0RF albuterol sulfate 90 mcg/actuation HFA aerosol inhaler 2 puff INHALATION QID PRN (Reason: shortness of breath or wheezing) Qty: 8.5 0RF ipratropium bromide 21 mcg (0.03 %) spray,non-aerosol 2 spray NASAL TID PRN (Reason: nasal drainage) Qty: 30 0RF Rx Instructions: administer into each nostril No Action ibuprofen 600 mg tablet 600 mg PO Q6H PRN (Reason: pain) Qty: 30 0RF metoprolol tartrate 100 mg tablet 100 mg PO DAILY atorvastatin 20 mg tablet 20 mg PO DAILY Qty: 90 1RF metformin 500 mg tablet 500 mg PO BID Qty: 120 1RF amlodipine 10 mg tablet See Rx Instructions .ROUTE .COMPLEX Qty: 90 1RF Dose Instruction: TAKE 1 TABLET BY MOUTH DAILY Rx Instructions: TAKE 1 TABLET BY MOUTH DAILY Follow-up/Referrals: Dyan,MARC Montgomery [Primary Care Provider, Unknown] Stand Alone Forms: Work/School Release IP Time of Disposition: 17:42
[2025-02-06 17:36] LABS: EDSTREPNEGPOS1 Negative (Negative)
== END 2025-02-06 17:45 | disposition home or self-care (01) ==
PROVIDERS: Emergency Provider Nurse Practitioner; PCP Nurse Practitioner
DX: J40 Bronchitis, not specified as acute or chronic (principal); I10 Essential (primary) hypertension; E78.5 Hyperlipidemia, unspecified; J45.909 Unspecified asthma, uncomplicated; K21.9 Gastro-esophageal reflux disease without esophagitis; K76.0 Fatty (change of) liver, not elsewhere classified; R73.03 Prediabetes
CPT/HCPCS: 87081; 87880; 99213; G0463

== ENCOUNTER 2025-02-12 19:39 | Emergency (ER) | payer OTHER, SELFPAY ==
--- OUTSIDE RECORDS SUMMARY | 2025-01-15 09:00 | XMS_ITS ---
Author Organization [facility] Address [address] [place], [place] [id number] Care Team Providers Care Air Cargo Specialist Supervisor Name Role Phone Arnaldo Tuttle DO Unavailable [phone] Allergies No Known Allergies Medications Medication SIG (Take, Route, Frequency, Duration) Notes Start Date End Date Status metFORMIN HCl 500 MG TAKE 1 TABLET BY MO UT TWICE DAILY Oral; Duration: 90 Days Active Vitamin D3 50 MCG (1999) Oral; Duration: 90 Days Active Nitrofurantoin Monohyd Macro 100 MG Oral; Duration: 5 Days Activ e valACYclovir HCl 500 MG TAKE 1 TABLET BY MOUTH EVERY DAY FOR SUPPRESSIVE THERAPY Oral; Duration: 90 Days Active Metoprolol Tartrate 100 MG Oral; Duration: 90 Days Active Meloxicam 7.5 MG Oral; Duration: 90 Days Active Albuterol Sulfate HFA 108 (90 Base) MCG/ACT Inhalation; Duration: 25 Days Active FeroSul 325 (65 Fe) MG TAKE 1 TABLET BY MOUTH TWICE DAILY Oral; Duration: 45 Days Active Fluconazole 150 MG TAKE 1 TABLET BY [facility]. REPEAT IN 72 HOURS NEEDED Oral; Duration: 9 Days Active Nystatin-Triamcinolone 059304-9.1 UNIT/GM External; Duration: 15 Days Active amLODIPine Besylate 10 MG Oral; Duration: 90 Days Active Doxycycline Hyclate 100 MG TAKE 1 TABLET BY MOUTH TWICE DAILY FOR 7 DAYS Oral; Duration: 7 Days Active valACYclovir HCl 1 GM TAKE 1 TABLET BY OUT EVERY DAY WITH MEALS FOR 5 DAYS Oral; Duration: 5 Days Active Encounters Encounter Location Date Provider Diagnosis [facility] [address] [place], [place] [id number] 01/15/2025 Arnaldo Tuttle Assessments Encounter Date Diagnosis (ICD Code) Assessment Notes Treatment Notes Treatment Clinical Notes Section Notes 01/15/2025 Other Plan Of Treatment No Information Procedure Notes * Category Sub-Category Detail Notes SURGICAL PLAN Consults: Consult so de paz nutrition for: months of preoperative supervised diets, consult bariatric psychology, consult primary care physician for medical clearance/recommendation, consult anesthesia/PACE clinic for preoperative clearance Diagnostic Tests: Test: CBC, CMP, Lipi d Panel, LFTs, Thyroid, Function, Vit B-1, Vit B-12, Iron Levels, H.Pylori, CXR, EKG, Coloniscopy, EGD, UGI Surgical Procedure: 1. Laparoscopic: . I have us e an anatomical chart to show the postsurgical changes that occur. I discussed expected weight loss and about common early & late complications associated with the procedure; including, but not limited to, leaks, strictures, bleeding, infection, hernia, and small bowel obstructions. Discussed dumping syndrome in detail & how dietary choices can worsen this. I discussed the need for postoperative vitamins lifelong. I have discussed postsurgical follow-up. I discussed the need for supervised bariatric nutrition prior to surgery as well as mental health evaluation. Progress Notes * ELIZONDOFloryB: 978 (49 yo F)Acc No.[id number]:01/15/2025 Patient: Johanna OWENS Provider: Nettie Tuttle DO :1975 A ge:49 Y S ex:Female Date:01/15/2025 Address:[address] [place], [place] [address] Subjective: * Chief Complaints: * * HPI: B ariatrics: BARIATRIC HISTORY AND PHYSICAL Saroj morris is a very pleasant adult who presents with complaints of morbid obesity with significant comorbidities despite multiple failed attempts at weight loss through dietary & exercise programs. Her weight is severely limiting her physical activity & overall lifestyle. She has been obese for several years . T rob are interested in learning about possible surgical options to help their fight against obesity. Aforementioned attempts at weight loss have included a variety of exercise routines, exercise videos, low-fat/low-calorie diets, and commercial weight loss programs, such as Weight Watchers . P alexandra d oes complain of food-related gastroesophageal reflux a nd patient d enies dysphagia. O BESITY-RELATED COMORBIDITIES: G astroesophageal Reflux disease (GERD),Back Pain,Arthritis Tobacco Counseling: P atient i s not a tobacco/nicotine user. * ROS: G eneral / Constitutional: Patient: denies chills, fever, unexpected weight loss, weakness. H EENT: Patient: d enies double vision, hearing loss, epistaxis, sore throat. E ndocrine: Patient: d enies cold intolerance, heat intolerance, flushing, fingernail changes, increased thirst, increased salt intake, decreased sexual desire. R espiratory: Patient: denies cough, w aking at night coughing or choking, repeated pneumonias, wheezing, or night sweats. C ardiovascular: Patient: d enies chest pain, irregular heart beats, shortness of breath, or syncope.Endorses dyspnea on exertion. G astrointestinal: Patient: d enies blood in stool, constipation, diarrhea, regurgitation, nausea and vomiting, frequent belching, black tarry stools, or h emorrhoids. ? H ematology: Patient: d enies easy bruising, bleeding. G enitourinary: Patient: d enies pain or burning with urination, blood in the urine. M usculoskeletal: Patient: d enies arm, buttock, thigh or calf cramps.Endorses joint pain and back pain. S kin: Patient: d enies easy bruising, skin redness, skin rash, hives. N eurologic: Patient: denies h eadache, dizziness, fainting, muscle spasm, loss of consciousness, sensitivity or pain in the hands and feet, memory loss. ? P sychiatric: Patient: d enies depression, anxiety, suicidal thoughts, homicidal thoughts. I mmunological:: Patient: denies tuberculosis, hepatitis, HIV/AIDS.? * Medical History: D ate Unknown Anemia Date Unknown Diabetes mellitus (CMS/HCC) Date Unknown HTN (hypertension) Date Unknown Hyperlipidemia. * Surgical History: 2 017 Hx breast reduction Comment: Cem 2013 Hx hysterectomy Comment: [facility] . * Medications: T aking valACYclovir HCl 1 GM Tablet TAKE 1 TABLET BY MOUTH EVERY DAY WITH MEALS FOR 5 DAYS Oral , Taking amLODIPine Besylate 10 MG Tablet Oral , Taking Doxycycline Hyclate 100 MG Tablet TAKE 1 TABLET BY MOUTH TWICE DAILY FOR 7 DAYS Oral , Taking Fluconazole 150 MG Tablet TAKE 1 TABLET BY MOUTH NOW. REPEAT IN 72 HOURS NEEDED Oral , Taking Nystatin-Triamcinolone 518129-9.1 UNIT/GM Ointment External , Taking Albuterol Sulfate HFA 108 (90 Base) MCG/ACT Aerosol Solution Inhalation , Taking FeroSul 325 (65 Fe) MG Tablet TAKE 1 TABLET BY MOUTH TWICE DAILY Oral , Taking Meloxicam 7.5 MG Tablet Oral , Taking Metoprolol Tartrate 100 MG Tablet Oral , Taking Nitrofurantoin Monohyd Macro 100 MG Capsule Oral , Taking valACYclovir HCl 500 MG Tablet TAKE 1 TABLET BY MOUTH EVERY DAY FOR SUPPRESSIVE THERAPY Oral , Taking metFORMIN HCl 500 MG Tablet TAKE 1 TABLET BY MOUTH TWICE DAILY Oral , Taking Vitamin D3 50 MCG (2000 UT) Tablet Oral * Allergies: N .K.D.A. Objective: * Vitals: * Examination: P hysical Exam: General Appearance: O bese adult who is a lert, in no acute distress. Eyes: C onjunctivae clear, sclerae normal without icterus, pupils equal, round, reactive to light and accommodation. Ears/Nose/Mouth/Throat: E xternal ears normal, canals clear, TM's normal, Nares normal, Septum midline, Mucosa normal, No drainage or sinus tenderness, Lips, mucosa, and tongue normal, teeth and gums normal, oropharynx normal. Neck: S upple, no adenopathy. Trachea midline and t hyroid symmetric, n o JVD or bruits. Respiratory: C lear to auscultation bilaterally, breathing comfortably on room air. Cardiovascular: R egular rate and rhythm, distal pulses intact bilaterally. Abdomen: S oft, non-tender, non-distended, obese. Lymph Nodes: N o cervical lymphadenopathy. Musculoskeletal: S pine range of motion normal, Muscular strength intact, No joint swelling, deformity or tenderness. Skin: N o rashes or lesions noted. Neurological: M ental status intact, CNII-XII intact, speech is clear and fluent. Psychiatric: A &O x3, judgement/insight appropriate.? Assessment: Plan: * Treatment: * Procedures: S URGICAL PLAN: Consults: C onsult bariatric nutrition for m onths of preoperative supervised diets, consult bariatric psychology, consult primary care physician for medical clearance/recommendation, consult anesthesia/PACE clinic for preoperative clearance Diagnostic Tests: T est C BC, CMP, Lipid Panel, LFTs, Thyroid, Function, Vit B-1, Vit B-12, Iron Levels, H.Pylori, CXR, EKG, Coloniscopy, EGD, UGI Surgical Procedure: 1 . Laparoscopic . I have use an anatomical chart to show the postsurgical changes that occur. I discussed expected weight loss and about common early & late complications associated with the procedure; including, but not limited to, leaks, strictures, bleeding, infection, hernia, and small bowel obstructions. Discussed dumping syndrome in detail & how dietary choices can worsen this. I discussed the need for postoperative vitamins lifelong. I have discussed postsurgical follow-up. I discussed the need for supervised bariatric nutrition prior to surgery as well as mental health evaluation. 2 .Preoperative work-up as detailed above. 3.All risks and benefits were discussed with the patient including: Intra- operative and/or Immediate Post-operative Risks: *: The mortality rate of the sleeve gastrectomy nationwide is 0.3% to 2%. Mortality rate associated with the gastric bypass is slightly higher-0.5 to 3%. *Significant Bleeding: Bleeding may occur unexpectedly in the operating room. Bleeding may also occur post-operatively in the days after the operation. This bleeding may be through the intestinal tract at the staple line and result in the passage of blood in the stool. Bleeding may also be unseen inside the abdomen and be diagnosed through other means. A transfusion may be necessary in some circumstances. Re-operation to stop bleeding may be necessary. If the spleen is injured during the surgery, it may need to be removed. *Anastomotic Leak: A leak is when the stapled part of the stomach does not heal. Serious complications can result from a leak, including, but not limited to a prolonged hospital stay, more operations, a long period of nothing to eat, prolonged antibiotic requirements, organ failure and . The reported incidence of anastomotic leak nationwide ranges from 0.5% to 3%. *Renal Failure: Transient kidney (renal) failure occurs rarely. Irreversible kidney failure has been reported in rare cases. *Prolonged Ventilation: A prolonged stay on a ventilator (breathing machine) in the intensive care unit may occur if a patient has severe sleep apnea or after certain significant complications. A temporary tracheostomy may be necessary. *Heart Attack: Although a heart attack is possible after a laparoscopic possible open sleeve gastrectomy, it is very rare. Risk factors for heart disease include increased age, diabetes, hypertension, hypercholesterolemia and a family history of heart disease. *Prolonged Hospital Stay: Unforeseen complications may result in a prolonged hospital stay. Intensive care admission may be required. *Bowel Obstruction (in undergoing the gastric bypass): An obstruction can occur from a number of causes, such as bleeding, scarring, technical problems or hernia, & may require reoperation. *Deep Vein Thrombosis (DVT)/Pulmonary Embolism: Blood clots that form in the legs, and elsewhere, and break off into the lungs may cause . Given this risk, treatments may be initiated to decrease the risk for the formation of blood clots, including the use of heparin (a medication that thins the blood), special foot and leg stockings, walking soon after surgery and medication at home after discharge from the hospital. Completely eliminating the risks of DVT (clots) altogether is not possible. The risks associated with the medications used to prevent blood clots can include excessive bleeding. Any symptoms of leg swelling, chest pain or sudden shortness of breath should be immediately reported to the surgeon. Rarely, patients develop allergies to heparin, sometimes causing very severe reactions. *Other Complications that may be common: Allergic reactions, headaches, itching, medication side-effects, heartburn/reflux, bruising, gout, anesthetic complications, injury to the bowel or vessels, gas bloating, minor wound drainage, wound opening, scar formation, stroke, urinary tract infection, urinary retention, pressure sores, injury to spleen or surrounding structures, and pneumonia. * Billing Information: * Visit Code: * Procedure Codes: * Electronic signature of Luis Manuel Tuttle DO, [id number] on 02/12/2025 at 07:41 PM CDT Sign off status: Pending * Provider: Nettie Tuttle DO Date: Generated for Baljit carmichael/Isidra/Arnoldoitting on: 07:41 PM CDT History and Physical Notes * HPI (History of Present Illness) Category Sub-Category Detail Notes Category Not es Bariatrics BARIATRIC HISTORY AN D PHYSICAL Patient is a very pleasant adult who presents with complaints of morbid obesity with significant comorbidities despite multiple failed attempts at weight loss through dietary & exercise programs. Her weight is severely limiting her physical activity & overall lifestyle. She has been obese for several years: . They are interested in learn ing about possible surgical options to help their fight against obesity. Aforementioned attempts at weight loss have included a variety of exercise routines, exercise videos, low-fat/low-calorie diets, and commercial weight loss programs, such as Weight Watchers: . Patient: does complain of food-related g astroesophageal reflux and patient: denies dysphagia. OBESITY-RELATED COMORBIDITIE S:: Gastroesophageal Reflux disease (GERD),Back Pain,Arthritis Tobacco Counseling: Patient: is not a tobacco/ni cotine user. Examination Category Sub-Category Detail Notes Category Not es Physical Exam General Appearance: Obese adult who is alert, in no acute distress Eyes: Conjunctivae clear, sclerae normal without icterus, pupils equal, round, reactive to light and accommodation Ears/Nose/Mouth/Throat: External ears no rmal, canals clear, TM's normal, Nares normal, Septum midline, Mucosa normal, No drainage or sinus tenderness, Lips, mucosa, and tongue normal, teeth and gums normal, oropharynx normal Neck: Supple, no adenopath y. Trachea midline and thyroid symmetric, no JVD or bruits Respiratory: Clear to auscultatio n bilaterally, breathing comfortably on room air Cardiovascular: Regular rate and rhy thm, distal pulses intact bilaterally Abdomen: Soft, non-tender, no n-distended, obese Lymph Nodes: No cervical lymphade nopathy Musculoskeletal: Spine range of motio n normal, Muscular strength intact, No joint swelling, deformity or tenderness Skin: No rashes or lesions noted Neurological: Mental status intact , CNII-XII intact, speech is clear and fluent Psychiatric: A&O x3, judgement/in sight appropriate
--- OUTSIDE RECORDS SUMMARY | 2025-01-15 09:30 | XMS_ITS ---
Author Organization [facility] Address [address] [facility] [address] [place], [place] [address] Care Team Providers Care Historic Site Administrator Name Role Phone Elaine Sweeney Unavailable [phone] Encounters Encounter Location Date Provider Diagnosis [facility] [address] [facility] [address] [place], [place] [phone] 01/15/2025 Elaine Sweeney Plan Of Treatment No Information Progress Notes * Flory ELIZONDOB: [birth year] (49 yo F)Acc No.[id number]:01/15/2025 Patient: Johanna OWENS Provider: Lisa Sweeney RD, LD :1975 A ge:49 Y S ex:Female Date:01/15/2025 Address:[address] [place], [place] [address] Subjective: * Chief Complaints: * * Medical History: Objective: * Vitals: Assessment: Plan: * Treatment: * Billing Information: * Visit Code: * Procedure Codes: * Electronic signature of Dariel Dixon RD, LD on 02/12/2025 at 07:41 PM CDT Sign off status: Pending * Provider: Lisa Sweeney RD, LD Date: Generated for Baljit carmichael/Isidra/eTransmitting on: 07:41 PM CDT
--- OUTSIDE RECORDS SUMMARY | 2025-02-12 19:41 | XMS_ITS | Clinical Summary ---
Author Organization [facility] Address [address] [place] [address] Phone Care Team Providers Care Dry House Operator Name Role Phone Provider, Unknown Primary Care Provider Unavaila ble Social History Tobacco Use Types Packs/Day Years Used Date Smoking Tobacco: Never Assessed Comments Unknown Sex and Gender Information Value Date Recorded Sex Assigned at Not on file Legal Sex Female 5:24 PM CDT Gender Identity Not on file Sexual Orientation Not on file Plan of Treatment Not on file Care Teams Dry House Operator Relationship Specialty Start Date End Date Provider, Unknown UNKNOWN PCP - General 10/12/16
--- OUTSIDE RECORDS SUMMARY | 2025-02-12 19:41 | XMS_ITS | Encounter Summary ---
Author Organization [facility] Address [address] [place] [address] Care Team Providers Care Railway Signal Electrician Name Role Phone Unavailable Primary Care Provider Unavailabl e Encounter Details Date Type Department Care Team (Late st Contact Info) Description 02/11/2025 External Device Data [place] ABSTRACTION Provider, Abstract NO ADDRESS ON FILE Social History Tobacco Use Types Packs/Day Years Used Date Smoking Tobacco: Never Smokeless Tobacco: Never Alcohol Use Standard Drinks/Week Comments Yes 0 (1 standard drink = 0.6 oz pur e alcohol) Comments Unknown Sex and Gender Information Value Date Recorded Sex Assigned at Not on file Legal Sex Female 11:45 PM CDT Gender Identity Not on file Sexual Orientation Not on file documented as of this encounter Plan of Treatment Not on file documented as of this encounter Visit Diagnoses Not on filedocumented in this encounter
--- OUTSIDE RECORDS SUMMARY | 2025-02-12 19:41 | XMS_ITS | Clinical Summary ---
Author Organization [facility] Address [address] [place] [address] Care Team Providers Care Tie Bucker Name Role Phone Farhad Fuchs MD Primary Care Provider [phone] Source Comments [facility],non-owned Affiliates and Associated Physician Practices is amultiple site organization consisting of ambulatory clinics and hospital sitesin [place], [place], [place] and [place]. This disclosure is being madepursuant to the Care Everywhere program and may not contain all information available regarding this patient. Last updated 18.[facility] Allergies Active Allergy Reactions Criticality Noted Date [...] on file Legal Sex Female 6:20 AM TOOL SETTER Gender Identity Not on file Sexual Orientation Not on file Last Filed Vital Signs Vital Sign Reading Time Taken Comments Blood Pressure 128/76 03/09/2022 10:42 AM TOOL SETTER Pulse 82 01/08/2016 7:54 AM CDT Temperature 36.6 C (97.8 F) 03/09/2022 10:42 AM TOOL SETTER Respiratory Rate 16 01/08/2016 7:54 AM CDT Oxygen Saturation 100% 01/08/2016 7:54 AM CDT Inhaled Oxygen Concentration - - Weight 85.1 kg (187 lb 9.6 oz) 03/09/2022 10:42 AM TOOL SETTER Height 157.5 cm (5' 2) 03/09/2022 10:42 AM TOOL SETTER Body Mass Index 34.31 03/09/2022 10:42 AM TOOL SETTER Plan of Treatment Health Maintenance Due [...] mg/dL 01/08/2016 5:06 AM CDT [facility] Sodium 139 136 - 145 mmol/L 01/08/2016 5:06 AM CDT [facility] Potassium 3.8 3.5 - 5.1 mmol/L 01/08/2016 5:06 AM CDT [facility] Chloride 104 98 - 107 mmol/L 01/08/2016 5:06 AM CDT [facility] CO2 28 22 - 31 mmol/L 01/08/2016 5:06 AM CDT [facility] Calcium 8.9 8.5 - 10.1 mg/dL 01/08/2016 5:06 AM CDT [facility] Anion Gap 7 5 - 20 mmol/L 01/08/2016 5:06 AM CDT [facility] BUN 12 7 - 21 mg/dL 01/08/2016 5:06 AM CDT [facility] Creatinine 0.95 0.50 - 1.30 mg/dL 01/08/2016 5:06 AM CDT [facility] eGFR by MDRD >60 >60 mL/min/1.7 3m2 01/08/2016 5:06 AM CDT [facility] eGFR by MDRD >60 >60 mL/min/1.7 3m2 01/08/2016 5:06 AM CDT [facility] Blood BLOOD SPECIMEN / Unknown 01/08/2016 4:02 AM CDT 01/08/2016 4:35 AM CDT Michaela Winters MD LAB - CHEMISTRY ORDERABL ES Final Result [facility] [address] [place] [address] from Last 3 Months or Most Recently Relevant to Health Maintenance Insurance [facility] [id number] [place] [address] MEDICAID - OUT OF STATE Advance Directives * Full Code (Latest Code Status on File) Date Activated Date Inactivated Comments 01/07/2016 7:16 PM 01/08/2016 12:15 PM * Full Code Date Activated Date Inactivated Comments 01/07/2016 3:44 PM 01/07/2016 7:16 PM Care Teams Tie Bucker Relationship Specialty Start Date End Date Farhad Fuchs MD PCP - General 01/15/18
--- OUTSIDE RECORDS SUMMARY | 2025-02-12 19:41 | XMS_ITS | Encounter Summary ---
Author Organization [facility] Address [address] [place] [address] Care Team Providers Care Darkroom Worker Name Role Phone Viridiana Zaidi NP Primary Care Provider [phone] Encounter Details Date Type Department Care Team (Latest Contact Info) Description 01/29/2025 Scan [facility] SRV[facility] Scanned, Doc Med Group Social History Tobacco Use Types Packs/Day Years [...] Care Team (Late st Contact Info) Description 05/08/2025 9:20 AM DRUM STOCK CLERK Office Visit [facility] Family Medicine - [place] [address] [place], [place] [phone] Viridiana Zaidi NP [address] [place], [place] [phone] documented as of this encounter Visit Diagnoses Not on filedocumented in this encounter Additional Health Concerns Infection Onset Date Last Indicated Resolved Time MRSA 11/21/2016 11/21/2016 documented as of this encounter Care Teams Darkroom Worker Relationship Specialty Start Date End Date Viridiana Zaidi NP [address] [place] [address] PCP - General NURSE PRACTITIONER 06/17/21 documented as of this encounter
--- OUTSIDE RECORDS SUMMARY | 2025-02-12 19:41 | XMS_ITS | Encounter Summary ---
Author Organization [facility] Address [address] [place] [address] Care Team Providers Care International Trade Specialist Name Role Phone Viridiana Zaidi MACHINE SPREADER Primary Care Provider [phone] Encounter Details Date Type Department Care Team (Late st Contact Info) Description 05/30/2024 MyChart Message Enc [facility] Family Medicine [facility] [address] [phone] Viridiana Zaidi NP [address] [place] [address] [place], [place] [phone] Bladder Social History Tobacco Use Types Packs/Day [...] st Contact Info) Description 05/08/2025 9:20 AM SURGICAL INSTRUMENT TECHNICIAN Office Visit [facility] Family Medicine [facility] [address] [phone] Viridiana Zaidi NP [address] [place] [address] documented as of this encounter Visit Diagnoses Not on filedocumented in this encounter Additional Health Concerns Infection Onset Date Last Indicated Resolved Time MRSA 11/21/2016 11/21/2016 documented as of this encounter Care Teams International Trade Specialist Relationship Specialty Start Date End Date Viridiana Zaidi NP [address] [place] [address] PCP - General NURSE PRACTITIONER 06/17/21 documented as of this encounter
--- OUTSIDE RECORDS SUMMARY | 2025-02-12 19:41 | XMS_ITS | Encounter Summary ---
Author Organization [facility] Address [facility] [place] [address] Care Team Providers Care Inspector Elevators Name Role Phone Viridiana Zaidi MAILING SECTION CLERK Primary Care Provider [phone] Encounter Details Date Type Department Care Team (Late Contact Info) Description 09/25/2024 Translimit Message Enc [facility] [address] [place] [address] [facility] Provider Sleep study Social History Tobacco Use [...] Department Care Team (Late Contact Info) Description 05/08/2025 9:20 AM TENON MACHINE OPERATOR Office Visit [facility] [address] [place] [address] Viridiana Zaidi NP [address] [place] [address] documented as of this encounter Visit Diagnoses Not on filedocumented in this encounter Additional Health Concerns Infection Onset Date Last Indicated Resolved Time MRSA 11/21/2016 11/21/2016 documented as of this encounter Care Teams Inspector Elevators Relationship Specialty Start Date End Date Viridiana Zaidi NP [address] [place] [address] PCP - General NURSE PRACTITIONER 06/17/21 documented as of this encounter
--- OUTSIDE RECORDS SUMMARY | 2025-02-12 19:41 | XMS_ITS | Encounter Summary ---
Author Organization [facility] Address [facility] [place] [address] Care Team Providers Care Storage And Backup Administrator Name Role Phone Viridiana Zaidi DEMOLITION SPECIALIST Primary Care Provider [phone] Encounter Details Date Type Department Care Team (Late Contact Info) Description 12/31/2024 [facility] [place] Message Enc [facility] Family [facility] [address] [facility] [address] [place] [phone] [facility] Provider 3 mo follow up / annual [...] (Late Contact Info) Description 05/08/2025 9:20 AM AN/SYQ 13 NAV/C2 OPERATOR Office Visit [facility] Family [facility] [address] [facility] [address] [place], [place] [phone] Viridiana Zaidi NP [address] [place], [place] [phone] documented as of this encounter Visit Diagnoses Not on filedocumented in this encounter Additional Health Concerns Infection Onset Date Last Indicated Resolved Time MRSA 11/21/2016 11/21/2016 documented as of this encounter Care Teams Storage And Backup Administrator Relationship Specialty Start Date End Date Viridiana Zaidi NP [address] [place] [address] PCP - General NURSE PRACTITIONER 06/17/21 documented as of this encounter
--- OUTSIDE RECORDS SUMMARY | 2025-02-12 19:41 | XMS_ITS | Data Portability ---
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 Patient will come back in a year unless there are new symptoms. rick Not available 08/29/2024 10:43:25 Plan of Treatment Reminders Order Date Submit Date Provider Last Modified By Organization Details Last Modified Time Details Appointments None recorded. Lab unlisted lab - [facility] swab plus, DARBY 2024 025 [facility] (Lab), [address], [place], [address], 14:48:24 unlisted lab - [facility] swab plus, DARBY 2024 025 [facility] (Lab), [address], [place], [address], 5 22:41:58 urinalysis, dipstick 2024 025 [email or web address] [place], [address], [place], [address], 15:40:38 culture, urine 2024 025 [facility] (Lab), [address], [place], [address], 22:41:58 pap, IG + HR HPV - HPV regardless but if HPV is positive need subtyping 16,18/45 2024 [facility] (Lab), [address], [place], [address], 16:19:39 Referral None recorded. Procedures None recorded. Surgeries None recorded. Imaging US, transvagina l 2024 [email or web address] [place], [facility] [address], [place], [address], 20:33:32 Medication Orders Valtrex 500 mg tablet 2024 [facility] #19822, [address], [place], [id number], 11:17:37 fluoxetine 10 mg capsule 2024 [facility] #79694, [address], [place], [id number], 5 11:17:10 nystatin-tr iamcinolone 100,000 unit/gram-0 .1 % topical ointment 2024 025 [facility] #71616, [address], [place], [id number], 5 13:00:06 Valtrex 1 gram tablet 2024 025 [facility] #01561, [address], [place], [id number], 5 13:00:27 doxycycline hyclate 100 mg tablet 2024 025 [facility] #09388, [address] [facility] [place], [id number], 5 05:01:24 fluconazole 150 mg tablet 2024 [facility] #59766, [address] [facility], [place], [place], [id number], 5 12:59:31 nystatin-tr iamcinolone 100,000 unit/gram-0 .1 % topical ointment 2024 [facility] #68263, [address], [place], [id number], 5 12:37:31 Valtrex 1 gram tablet 2024 [facility] #17679, [address], [place], [id number], 5 15:29:47 fluconazole 150 mg tablet [address], [address], [place], [id number], 5 15:05:47 Patient TargetsNo targets recorded. Patient [...] Image d, Vagsoumya a [facility] ACY: Satis facto anupam for evalu ation [...] 2024 at 1516 CDT. Not Available [facility] (Lab) [address] [facility], [place], [address], 09/05/2024 11:24:59 09/24/1909/23/2024 [facility]AB [facility], DARBY bacterial vaginosis (bv), tma Negati ve negati ve Not Available [facility] (Lab) [address] [place], [address], 09/24/2024 22:41:58 09/24/19 25 09/23/2024 [facility]ARBY connor species, tma Negati ve negati ve Not Available [facility] (Lab) [address] [facility], [place], [address], 09/24/2024 22:41:58 09/24/19 25 09/23/2024 [facility]ARBY connor glabrata, tma Negati ve negati ve Not Available [facility] (Lab) [address] [facility], [place], [address], 09/24/2024 22:41:58 09/24/19 25 09/23/2024 [facility] DARBY trichomonas vaginalis, tma Negati ve negati ve Not Available [facility] (Lab) [address] [place], [address], 09/24/2024 22:41:58 09/24/19 25 09/23/2024 [facility] DARBY chlamydia trachomatis, PCR Negati ve negati ve Not Available [facility] (Lab) [address] [place], [address], 09/24/2024 22:41:58 09/24/19 25 09/23/2024 WOMEN 'S [...] ded in this panel . Not Available [facility] (Lab) [address] , [place], [address], 09/24/2024 22:41:58 09/24/1909/23/2024 CULTU RE: URINE result report SEE RESULT S BELOW Test: Cultu re: Urine Speci men Sourc e: Urine Voide d Speci men Type: Urine Speci men Date: 025 1711 Resul t Date: 20247 Resul t Statu s: Final resul t Abnor mal: No Resul ting Lab: [facility] [address] [facility] [address] Tel: CULTU RE ----- ----- ----- --- No growt h in 1 day (dete ction level of 10,00 0 colon ies / ml.) Not Available [facility] (Lab) [address] [facility], [place], [address], 09/24/2024 22:41:58 09/24/1909/23/2024 urina lysis , dipst ick Leukocytes Trace Not Available Stephen riddle [address], [place], [address], 09/23/2024 15:39:27 09/24/19 25 09/23/2024 urina lysis , dipst ick Nitrite - Not Available [place] [address], [place], [address], 09/23/2024 15:39:27 09/24/19 25 09/23/2024 urina lysis , dipst ick Urobilinogen Normal Not Available [facility] attila [address], [place], [address], 09/23/2024 15:39:27 09/24/19 25 09/23/2024 urina lysis , dipst ick Protein + Not Available [place] [address], [place], [address], 09/23/2024 15:39:27 09/24/19 25 09/23/2024 urina lysis , dipst ick pH 5 Not Available [place] [address], [place], [address], 09/23/2024 15:39:27 09/24/19 25 09/23/2024 urina lysis , dipst ick Blood trace Not Available [place] [address], [place], [address], 09/23/2024 15:39:27 09/24/19 25 09/23/2024 urina lysis , dipst ick Specific Orick 1.050 [facility] Available [facility] [address], [place], [address], 09/23/2024 15:39:27 09/24/19 25 09/23/2024 urina lysis , dipst ick Ketone - Not Available [place] [address], [place], [address], 09/23/2024 15:39:27 09/24/19 25 09/23/2024 urina lysis , dipst ick Bilirubin - Not Available Prateek whitaker [address], [place], [address], 09/23/2024 15:39:27 09/24/1909/23/2024 urina lysis , dipst ick Glucose Normal Not Available [place] [address], [place], [address], 09/23/2024 15:39:27 09/24/19 25 09/23/2024 urina lysis , dipst ick Appearance clear Not Available [facility] [address], [place], [address], 09/23/2024 15:39:27 09/24/19 25 09/23/2024 urina lysis , dipst ick Color dark yellow Not Available [place] [address], [place], [address], 09/23/2024 15:39:27 12/24/1912/23/2024 WOMEN 'S HEALT H SWAB PLUS, DARBY bacterial vaginosis (bv), tma Negati ve negati ve Not Available [facility] (Lab) [address] [place], [address], 12/24/2024 14:48:24 12/24/19 25 12/23/2024 WOMEN 'S HEALT H SWAB PLUS, DARBY connor species, tma Negati ve negati ve Not Available [facility] (Lab) [address] [facility], [place], [address], 12/24/2024 14:48:24 12/24/19 25 12/23/2024 WOMEN 'S HEALT H SWAB PLUS, DARBY connor glabrata, tma Negati ve negati ve Not Available [facility] (Lab) [address] [place], [address], 12/24/2024 14:48:24 12/24/19 25 12/23/2024 WOMEN 'S HEALT H SWAB PLUS, DARBY trichomonas vaginalis, tma Negati ve negati ve Not Available [facility] (Lab) [address] [facility], [place], [address], 12/24/2024 14:48:24 12/24/1912/23/2024 WOMEN 'S HEALT H SWAB PLUS, DARBY chlamydia trachomatis, PCR Negati ve negati ve Not Available [facility] (Lab) [address] [facility], [place], [address], 12/24/2024 14:48:24 12/24/1912/23/2024 [facility] [...] ded in this panel . Not Available [facility] (Lab) [address] [facility], [place], [address], 12/24/2024 14:48:24 10/02/1910/01/2024 US, trans vagin al No observ ation record ed. [email or web address] [place] [address], [place], [address], 10/01/2024 17:12:56 10/02/19 25 10/01/2024 US, trans vagin al No observ ation record ed. [email or web address] [address], [place], [address], 10/08/2024 18:29:48 Result Notes None recorded. Problems Name Problem SNOMED Code Status Onset Date Resolution Date Notes Provider Name and Address Organization Details Recorded Time Hyperten sive disorder 33550122 Completed 201501/14/2021 Essential (primary) hypertens ion;Recor ded Elsewhere : No Locati on: [facility] So urce: EHR Chron ic: N Practic e ID: 0001 Bill able Time: 01:45:00 PM Ashley [facility] 14:24:18 Body mass index 30+ - obesity 380103887 Completed 201501/14/2021 Body mass index (BMI) 36.0-36.9 , adult;Rec orded Elsewhere : No Locati on: [facility] So urce: EHR Chron ic: N Practic e ID: 0001 Bill able Time: 01:45:00 PM Ashley [facility] 14:24:13 Itching 577522645 Completed 201601/14/2021 Pruritus, unspecifi ed;Record ed Elsewhere : No Locati on: [facility] So urce: EHR Chron ic: N Practic e ID: 0001 Bill able Time: 10:30:00 AM Ashley [facility] 14:24:[address] Concept Completed 201601/14/2021 Encntr for general adult medical exam w/o abnormal findings; Recorded Elsewhere : No Locati on: [facility] So urce: EHR Chron ic: N Practic e ID: 0001 Bill able Time: 02:30:00 PM Ashley Hunter [facility] 14:24:24 Dysuria 98793554 Completed 201601/14/2021 Dysuria;P ractice ID: [id number] Ashley headley [facility] 14:24:17 Acute vaginiti s 60575685 Completed 201601/14/2021 Acute vulvovagi nitis;Rec orded Elsewhere : No Locati on: [facility] So urce: EHR Chron ic: N Practic e ID: 0001 Bill able Time: 01:00:00 PM Ashley headley [facility] 14:24:12 Pelvic and perineal pain 501897628 Completed 201701/14/2021 Pelvic and perineal pain;Kal rded Elsewhere : No Locati on: [facility] So urce: EHR Chron ic: N Practic e ID: 0001 Bill able Time: 11:30:00 AM Ashley Hunter [facility] 14:24:23 Vaginola bial hernia Completed 201701/14/2021 Other specified noninflam matory disorders of vagina;Re corded Elsewhere : No Locati on: [facility] So urce: EHR Chron ic: N Practic e ID: 0001 Bill able Time: 11:30:00 AM [facility] 14:24:29 Syphilis test finding 536009549 Completed 201701/14/2021 Encntr screen for infection s w sexl mode of transmiss ;Recorded Elsewhere : No Locati on: [facility] So urce: EHR Chron ic: N Practic e ID: 0001 Bill able Time: 11:30:00 AM [facility] 14:24:27 Infectio n screenin g Completed 201701/14/2021 Encounter for screening for oth infec/par astc diseases; Recorded Elsewhere : No Locati on: [facility] So urce: EHR Chron ic: N Practic e ID: 0001 Bill able Time: 11:30:00 AM Ashley Hunter null, [facility] 14:24:20 Connor infectio n of genital region Completed 201801/14/2021 Candidal vulvovagi nitis;Rec orded Elsewhere : No Locati on: [facility] So urce: EHR Chron ic: N Practic e ID: 0001 Bill able Time: 04:00:00 PM Ashley headley [facility] 14:24:[address] Concept Completed 201901/14/2021 Encntr for medical scientific liaison exam (general) (routine) w/o abn findings; Recorded Elsewhere : No Locati on: [facility] So urce: EHR Chron ic: N Practic e ID: 0001 Bill able Time: 09:45:00 AM Ashley headley [facility] 14:24:26 Problem Notes None recorded. Procedures Surgical History Date Name Laterality Status Provider Name and Address Organization Details Recorded Time 08/30/19 25 Date of Last Pap Smear completed [facility] 12/23/2024 12:37:47 08/28/19 25 Date of Last Mammogram completed [facility] 08/29/2024 10:47:15 04/22/19 25 colonoscopy completed [facility] 08/29/2024 10:51:38 03/01/20 24 biopsy of breast completed [facility] 08/29/2024 10:52:59 04/17/19 17 Breast reduction completed [facility] 01/14/2021 14:57:49 04/17/19 14 Partial Hysterectomy completed [facility] 11/09/2020 09:42:54 Imaging Results None recorded. Procedure Notes None recorded. Medical Equipment None Reported. Allergies No known drug allergies Medications Name Sig Start Date Stop Date Status Note LastModified by Organization Details LastModified Time atorvasta tin 40 mg tablet take 1 tablet by oral route every day 01/14 completed Prescrib ed Elsewher e: Yes Loca tion: Prateek whitaker [facility] odify By: [email or web address] Encount er DateTime : 04/20/19 04:00:00 PM Not Available Not Available Not Available metformin 500 mg tablet TAKE 1 TABLET BY MOUTH TWICE DAILY active Not Available Not Available No t Available terconazo le 0.4 % vaginal cream insert 1 applicat orful by vaginal route every day for 7 days at bedtime 04/26 completed Prescrib ed Elsewher e: No Locat ion: [facility] sherman [facility] odify By: karina bolden DateTime : [...] Elsewher e: No Locat ion: Prateek whitaker [facility] odify By: nhung bolden DateTime : [...] Elsewher e: No Locat ion: Prateek whitaker [facility] odify By: mike prasad DateTime : 09/04/19 19 01:16:23 PM Not Available Not Available Not Available famotidin e 20 mg tablet 11/23 completed Not Available Not Available Not Available 3D BiomatrixToCiplex Ultra Test strips USE TO CHECK BLOOD [...] MOUTH EVERY 6 HOURS NEEDED FOR PAIN active Not Available Not Available No t Available methylpre dnisolone 4 mg tablets in [...] Prescrib ed Elsewher e: No Locat ion: Elisha sherman [facility] odify By: [email or web address] Encount er DateTime : 02/09/20 17 01:00:00 PM Not Available Not Available Not Available fluticaso ne propionat e 50 mcg/actua tion nasal spray,parker pension 11/23 completed Not Available Not Available Not Available metformin ER 500 mg tablet,ex tended release 24 hr take 2 tablet by oral route every day with the evening meal 02/11 completed Prescrib ed Elsewher e: Yes Loca tion: [facility] odify By: ron prasad DateTime : 10/24/19 [...] Prescrib ed Elsewher e: Yes Loca tion: [facility] odify By: elizabeth wesley DateTime : 10/30/19 [...] day with meals 02/08 completed Prescrib ed Yahir e: Yes [facility] By: elizabeth wesley DateTime : 10/30/19 16 01:45:00 PM Not Available Not Available Not Available nitrofura ntoin monohydra te/macroc rystals 100 mg capsule TAKE 1 CAPSULE BY MOUTH EVERY 12 HOURS FOR 5 DAYS 12/23 completed Not Available Not Available Not Available [facility] 2.65 % nasal spray [...] Updated DateTime 08/29/2024 158.75 cm 35.8 kg/m2 84226.88 g 156/89 mm[Hg] [facility] 08/29/2024 10:44:12 Date Recorded Body height Body mass index (BMI) Body weight Systolic And Diastolic Provider Name and Address Organization Details Last Updated DateTime 09/23/2024 158.75 cm 35.3 kg/m2 03298.1 g 117/80 mm[Hg] [facility] 09/23/2024 15:05:38 Date Recorded Body height Body mass index (BMI) Body weight Systolic And Diastolic Provider Name and Address Organization Details Last Updated DateTime 12/23/2024 158.75 cm 35.5 kg/m2 04531.7 g 141/88 mm[Hg] [facility] 12/23/2024 12:36:55 Date Recorded Body height Body mass index (BMI) Body weight Systolic And Diastolic Provider Name and Address Organization Details Last Updated DateTime 01/30/2025 158.75 cm 36.5 kg/m2 41597.25 g 138/87 mm[Hg] Jenelle Bennett [facility] 01/30/2025 11:00:24 Social History Question Answer Notes LastModified by Organizat ion Details LastModified Time Tobacco Smoking Status Never Smoker Ashley Dale [facility] 01/14/2021 14:27:15 Do You Have An Advance Directive? No [email or web address] Information n ot available 12/23/2024 How Many Years Have You Consumed Alcohol? 0 [email or web address] Information not available 12/23/2024 Are You Blind [...] Or The Highest Degree You Have Received? [id number] [email or web address] Information not available 12/23/2024 Do You Use Protection During Sex? Usually [email or web address] Information not available 12/23/2024 Do You Use Your Seat Belt Or Car Seat Routinely? Yes Information not available 01/14/2021 Do You Have Smoke And Carbon Monoxide Detectors In Your Home? Yes Information not available 01/14/2021 How Much Tobacco Do You Smoke? No [email or web address] Information not available 12/23/2024 Do You Use Sunscreen Routinely? Yes Information not available 01/14/2021 Have You Used IV Drugs? No [email or web address] Information not available 12/23/2024 Do You Have Difficulty Walking Or Climbing Stairs? No Information not available 07/29/2021 Sex: Unknown Functional Status Question Answer Note LastModified by Organizat ion Details LastModified Time Do you use any illicit or recreational drugs? No Information not available 01/14/2021 What is your level of alcohol consumption? None [email or web address] Information not available 12/23/2024 Are you able to walk independently without assistance or assistive devices? [email or web address] Information not available 01/14/2021 Are you able to care for yourself independently? Yes Information not available 07/29/2021 What is your occupation? [email or web address] Information not available 12/23/2024 Do you have difficulty dressing, bathing, grooming, or toileting? No Information not available 07/29/2021 What is your exercise level? None Information not available 12/23/2024 Mental Status Question Answer Note LastModified by Organization D etails LastModified Time Do you feel stressed (tense, restless, nervous, or anxious, or unable to sleep at night)? [id number] Information not available 01/14/2021 Family History Relationship Description Onset Age of this Age Resolved Age Notes LastModified by Organization Details LastModified Time Mother Diabetes mellitus Not available 2020 14:26:48 Mother Malignant neoplasm of colon [email or web address] Not available 2024 10:49:52 Notes:Mother: Diabetes gordo [...] ICD10 Code Diagnosis IMO Codes Diagnosis Note [id number] [facility] [address] [address] 01/14/2021 14:25:42 01/14/2021 16:34:13 Gynecologic examination 89818275 Z01.419 Suggested Calcium with Vitamin D 1200-1500m g daily. Patient advised to get an annual flu shot in the fall and she could obtain at [facility] or [facility] clinic. Also to obtain TDap vaccinatio n [...] std screenmamm o ordered Pain in pelvis 62363429 R10.2 Likely pain she is feeling is from left hip/pirifo rmis issues that are aggravatin g her lower back and sciatic nerve. However, some pain on left adnexal area so will ensure no issues & update TVUS.She is due to start PT next week for her back/sciat ic nerve pain.Heat/ ice/biofre elder [id number] Yosi Mercer MD [place] [address] [address] 07/05/2021 13:45:37 07/05/2021 14:56:52 Vaginitis 75290191 N76.0 this patient is a 45-year-ol d [...] antifungal . She will follow-up as needed. [id number] BRIEN Reynolds [place] [address] [address] 07/29/2021 16:12:28 07/29/2021 17:35:48 Venereal disease screening 492457608 Z11.3 Sexually t ransmitted infectious disease 7581619 A64 Urinary symptoms 8444454 08 R39.9 Acute urin swathi tract infection 822822363 N39.0 Urinary burning, pain, and frequency for [...] patient was 35 minutes. Pain in pelvis 87810704 R10.2 [id number] Yosi Mercer MD [place] [address] [address] 08/04/2021 18:01:45 08/04/2021 18:41:06 Pain in pelvis 21130666 R10.2 [id number] Dorys Kwon [facility] [address] [address] 08/09/2021 10:02:37 08/09/2021 10:38:44 Pain in pelvis 25637396 R10.2 Blood in urine 49049837 R31.9 [id number] Rhonda Alarcon [facility] [address] [address] 02/11/2022 15:52:12 02/11/2022 16:50:19 Urinary symptoms 407863826 R39.9 Chronic in terstitial cystitis 313838359 N30.10 Suspect CIC on exam, Hx & [...] counseling and review of plan of care. [id number] Rhonda Alarcon [facility] [address] [address] 11/23/2022 18:01:45 11/24/2022 16:40:09 Genital herpes simplex 92701842 A60.9 Suspect HSV outbreakHx of HSV in the past but no outbreaks for a very long time.Rx sentDeclin ed need for std screen Counseled on medication R/B's, Most common side effects, & use. All questions were answered to patient satisfacti on. Labial cyst 323023198 N9 0.7 We agreed to treat labial cyst today.Rx sentCounse led on medication R/B's, Most common side effects, & use. All questions were answered to patient satisfacti on. Return if any further issues or persists. Time spent in visit is a total of 20mins with at least 50% of visit consisting of counseling and review of plan of care. Vaginitis 08323703 N76.0 Suspect yeast on examRx sent Counseled on medication R/B's, Most common side effects, & use. All questions were answered to patient satisfacti on. [id number] [facility] [address] [address] 12/07/2022 16:10:48 12/07/2022 17:41:11 Genital herpes simplex 47251515 A60.9 Wants to do suppressiv e therapy as previously discussed. Rx sent Counseled on medication R/B's, Most common side effects, & use. All questions were answered to patient satisfacti on. Time spent in visit is a total of 20 mins with at least 50% of visit consisting of counseling and review of plan of care. Vaginitis 97650524 N76.0 RF sent for PRN use [id number] Dorys Kwon ANUJA [place] [address] [address] 06/09/2023 10:34:56 06/09/2023 11:43:31 Vaginitis 31501236 N76.0 vaginitis/ STI panel sentsuspec t BV/yeastrx sent, r/b/a reviewedvu lvar care guidelines discussedR TC for WWE or sooner if needed Time spent in visit is a total of 22mins with at least 50% of visit consisting of counseling and review of plan of care. Venereal d isease screening 240290664 Z11.3 [id number] Yosi Mercer MD [place] [address],[place] [address] 12/19/2023 09:28:17 12/19/2023 09:56:41 Urinary symptoms 792936909 R39.9 [id number] Dorys Kwon ANUJA [place] [address] [address] 08/29/2024 10:33:32 08/29/2024 13:34:20 Gynecologic examination 86055217 Z01.226 [id number] WWEPap - done todaySTI screen - declinedMa [facility] [place] labs - UTD/PCPRTC in 1 yr or [...] All questions have been answered. Acute vaginitis 83931825 N76.0 44338 rx sent for yeastvulva r care guidelines reviewed [id number] Dorys Kwon ANUJA [place] [address] [address] 09/23/2024 14:41:19 09/24/2024 13:31:16 Vulval irritation 584348798 N90.89 0279938 vaginitis/ STI panel sentvulvar care guidelines discussedr x sent for nystatin-t riamcinolo ne Genital he rpes simplex 93134731 A60.00 [id number] rx sent for valtrex, use with symptoms of outbreak Time spent in visit is a total of 20 mins with at least 50% of visit consisting of counseling and review of plan of care. Increased frequency of urination 517426812 R35.0 59783 UA done, cx sent [id number] Yosi Mercer MD [place] [address] [place] [address] 10/01/2024 12:08:30 10/01/2024 13:06:58 Pain in pelvis [id number] R10.2 [id number] BRIEN Reynolds [place] [address],[place] [address] 12/23/2024 12:20:58 12/24/2024 09:44:28 Vulval irritation [id number] N90.89 [id number] Furuncle of vulva 476109 006 N76.4 255909 Acute vaginitis 16018055 N76.0 15340 vaginitis panel sentvulvar care guidelines discussedr x sent for yeast , r/b/a reviewedRT C if symptoms persist past treatment Genital he rpes simplex [id number] A60.00 refills sent for valtrex, use with symptoms of outbreak BP precaution s discussed Time spent in visit is a total of 25 mins with at least 50% of visit consisting of counseling and review of plan of care. 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 051444 Reviewed management optionspre viously on fluoxetine , [...] Rivera Member ID Guarantor Name 09/17/2024 1 [employer] [facility] [employer] Roshonda Zechariah Dominguez [id number] Blazea Zechariah Dominguez 09/17/2024 3 [facility] Blazea Zechariah Dominguez [id number] Blazea Zechariah Dominguez 09/17/2024 1 [facility] [id number] Blazea Zechariah Dominguez [id number] PU [id number] PU Blazea Zechariah Dominguez 09/17/2024 1 [facility] (MEDICAID HMO) [id number] 3 Johanna Goodard [id number] Johanna Apple Dominguez 01/14/2021 1 *SELF PAY* Ro joel Apple Dominguez 09/17/2024 3 [employer] [facility] - DOS PRIOR TO . [id number] Johanna Apple Dominguez [id number] Johanna Apple Dominguez 09/17/2024 2 MEDICAID-MS: [facility] Johanna Goodard [id number] Johanna Apple Dominguez 01/29/2025 1 [facility] [id number] Johanna Apple Dominguez [id number] PU Johanna Apple Dominguez Notes Date Note [...] vaginal itching/discharge BRIEN Reynolds [address], [place], [address], [facility] 08/29/2024 13:29:18 5 text/htm l 48yopresents for evaluation of vulvar irritationnoticed symptoms after using iniguez for hair removalfrequent urination over the past 2 wksh/o genital HSV, outbreaks a few times per yr neg dysurianeg n/v/fneg pelvic painneg d/c, odors, itching neg lesions, neg d/c or odors, neg pelvic pain BRIEN Reynolds [address], [place], [address], [facility] 09/24/2024 12:08:25 5 text/htm l 49yoPresents with c/o vulvar irritation. HSV outbreak started 5 days ago, currently taking valtrex. Very itchy/sore, scratched one of the lesion and it has been tender ever since.no new partnersneg n/v/fneg flu - like symptomsneg d/c, odors BRIEN Reynolds [address], [place], [address], [facility] 12/24/2024 09:20:43 5 text/htm l Vaginal/Vulvar [...] of harming self or others BRIEN Reynolds [address], [place], [address], [facility] 01/30/2025 12:41:38 OBGyn Episode Ob Episode Information Episode Created Date Number of Fetuses Patient Bloodtype Patient rh Status Prepregnancy Weight lbs Domestic Partner Domestic Partner Phone Father Name Cotton Seed Culler Status 11/10/19 21 1 CLOSED Fetus Data First Name Last Name Admitted to NICU Weight (g) Sex Living Outcome Pediatric Complications Fetus ID Race Codes Race Delivery Type 2834.95 M Full Term 96085 Vaginal Delivery Daniel Calculation Initial Daniel Date [...] Domestic Partner Domestic Partner Phone Father Name Cotton Seed Culler Status 11/10/19 21 1 CLOSED Fetus Data First Name Last Name Admitted to NICU Weight (g) Sex Living Outcome Pediatric Complications Fetus ID Race Codes Race Delivery Type 3175.14 4 F Full Term 35619 Vaginal Delivery Daniel Calculation Initial Daniel Date [...] Domestic Partner Domestic Partner Phone Father Name Cotton Seed Culler Status 11/10/19 21 1 CLOSED Fetus Data First Name Last Name Admitted to NICU Weight (g) Sex Living Outcome Pediatric Complications Fetus ID Race Codes Race Delivery Type 2834.95 M Full Term 96078 Vaginal Delivery Daniel Calculation Initial Daniel Date [...] Domestic Partner Domestic Partner Phone Father Name Cotton Seed Culler Status 11/10/19 21 1 CLOSED Fetus Data First Name Last Name Admitted to NICU Weight (g) Sex Living Outcome Pediatric Complications Fetus ID Race Codes Race Delivery Type 2976.47 0704 M Full Term 00157 Vaginal Delivery Daniel Calculation Initial Daniel Date [...]
--- OUTSIDE RECORDS SUMMARY | 2025-02-12 19:41 | XMS_ITS | Data Portability ---
Author Organization KAUSHAL ALTHEAScott Barroso Address [address] [place] [address] Assessment No assessment recorded. Plan of Treatment Reminders Order Date Submit Date Provider Last Modified By Organization Details Last Modified Time Details Appointments None recorded. Lab HbA1c (hemoglobi n A1c), blood 2016 017 [facility] (Lab), [address], [place], [address], 7 06:16:52 lipid panel w/ direct LDL, serum 2016 017 [facility] (Lab), [address], [place], [address], 7 20:10:49 BMP, serum or plasma 2016 017 [facility] (Lab), [address], [place], [address], 7 20:10:48 TSH, serum or plasma 2016 017 [facility] (Lab), [address], [place], [address], 7 07:19:43 CBC 2016 017 [facility] (Lab), [address], [place], [address], 7 18:56:52 lipid panel, serum 2016 017 [facility] (Lab), [address], [place], [address], 7 19:38:55 CMP, serum or plasma 2016 017 [facility] (Lab), [address], [place], [address], 7 19:38:15 HbA1c (hemoglobi n A1c), blood 2016 017 [facility] (Lab), [address], [place], [address], 7 09:22:37 glucose, fingerstic k, blood 2016 017 [facility] In-Office Order, Internal Use Only DO Not Attach Compendium DO Not Attach Compendium, Do Not Delete/merge, [id number] 7 15:02:38 Referral None recorded. Procedures None recorded. Surgeries None recorded. Imaging None recorded. Medication Orders penicillin V potassium 500 mg tablet 2017 018 [facility] #10721, [address], [place], [id number], 8 11:01:01 Tylenol-Co deine #3 300 mg-30 mg tablet 2017 018 [facility] #32353, [address], [place], [id number], 8 11:00:55 hydrochlor othiazide 25 mg tablet 2017 018 [facility] #78962, [address], [place], [id number], 8 11:01:07 metformin 500 mg tablet 2017 018 [facility] #95665, [address], [place], [id number], 8 11:01:06 metoprolol tartrate 100 mg tablet 2017 018 [facility], [address], [place], [place], [id number], 8 11:01:06 atorvastat in 20 mg tablet 2017 018 [facility], [address], [place], [place], [id number], 8 11:01:16 hydrochlor othiazide 25 mg tablet 2016 017 [facility], [address], [place], [place], [id number], 7 15:53:40 metformin 500 mg tablet 2016 017 [facility], [address], [place], [place], [id number], 7 15:53:40 metoprolol tartrate 100 mg tablet 2016 017 [facility], [address], [place], [place], [id number], 7 15:53:40 cyclobenza mike 10 mg tablet 2016 017 [facility], [address], [place], [place], [id number], 7 15:53:39 [place] 5 mg-325 mg tablet 2016 017 [facility] #53271, [address], [place], [place], [id number], 7 14:47:18 atorvastat in 20 mg tablet 2016 017 [facility], [address], [place], [place], [id number], 7 15:53:40 hydrochlor othiazide 25 mg tablet 2016 017 [facility] #16638, [address], [place], [place], [id number], 7 12:42:57 metformin 500 mg tablet 2016 017 [facility] #55346, [address], [place], [place], [id number], 7 12:42:58 metoprolol tartrate 100 mg tablet 2016 017 [facility] [facility] #23923, [address], [place], [place], [id number], 7 12:42:58 cyclobenza mike 10 mg tablet 2016 017 [facility], [address], [place], [place], [id number], 7 12:42:56 [place] 5 mg-325 mg tablet 2016 017 [facility] [employer] [facility] #02927, [address], [place], [place], [id number], 7 12:00:51 atorvastat in 20 mg tablet 2016 017 [facility], [address], [place], [place], [id number], 7 12:42:56 hydrochlor othiazide 25 mg tablet 2016 017 [facility]76732, [address], [place], [place], [id number], 7 08:12:46 metformin 500 mg tablet 2016 017 [facility], [address], [place], [place], [id number], 7 08:12:47 metoprolol tartrate 100 mg tablet 2016 017 [facility]87, [address], [place], [place], [id number], 7 08:12:47 naproxen 500 mg tablet 2016 017 [facility], [address], [place], [place], [id number], 7 08:12:46 atorvastat in 20 mg tablet 2016 017 [facility], [address], [place], [place], [id number], 7 08:12:49 metoprolol tartrate 100 mg tablet 2016 017 [facility], [address], [place], [place], [id number], 7 15:02:55 hydrochlor othiazide 25 mg tablet 2016 017 [facility], [address], [place], [place], [id number], 7 15:02:48 fluoxetine 20 mg capsule 2016 017 [facility]303, [address], [place], [place], [id number], 7 15:02:47 [place] 5 mg-325 mg tablet 2016 017 [facility] #03567, [address], [place], [place], [id number], 7 15:02:38 Patient TargetsNo targets recorded. Patient Instructions Encounter Date Encounter Id Patient Instructions Last Modified By Organization Details Last Modified Time 08/03/2016 [id number] learning about high blood sugar Not available 08/03/2016 15:18:04 When You Want to Lose Weight: Care Instructions Not available 08/03/2016 15:18:04 back care and preventing injuries: care instructions Not available 08/03/2016 15:18:04 learning about high blood pressure Not available 08/03/2016 15:18:04 08/30/2016 [id number] learning about high blood sugar Not available 08/31/2016 09:35:46 When You Want to Lose Weight: Care Instructions Not available 08/31/2016 09:35:46 back care and preventing injuries: care instructions Not available 08/31/2016 09:35:46 learning about high blood pressure Not available 08/31/2016 09:35:46 high cholesterol : care instructions Not available 08/31/2016 09:35:46 11/04/2016 [id number] When You Want to Lose Weight: Care Instructions Not available 11/04/2016 12:56:56 back care and preventing injuries: care instructions Not available 11/04/2016 12:56:56 learning about high blood pressure Not available 11/04/2016 12:56:56 01/31/2017 [id number] learning about high blood sugar Not available 01/31/2017 17:02:36 When You Want to Lose Weight: Care Instructions Not available 01/31/2017 17:02:36 bronchitis: care instructions Not available 01/31/2017 17:02:36 back care and preventing injuries: care instructions Not available 01/31/2017 17:02:36 learning about high blood pressure Not available 01/31/2017 17:02:36 11/08/2017 [id number] tooth and gum pain: care instructions balbarcha [...] Detail LastModifiedTime 08/04/19 17 08/03/2016 gluco se, alise rstic k, blood Blood Glucose: mg/dl 85 Not Available In-Off ice Order Internal Use Only DO Not Attach Compendium DO Not Attach Compendium, Do Not Delete/merge, [id number] 08/03/2016 15:00:04 08/04/19 17 08/03/2016 CBC WBC 8.0 K/uL 3.4-10 .8 Not Available [facility] (Lab) [address] [place], [address], 08/03/2016 18:56:51 08/04/19 17 08/03/2016 CBC red blood count 3.8 M/uL 4.2-5. 4 low Not Available [facility] (Lab) [address] [place], [address], 08/03/2016 18:56:51 08/04/1908/03/2016 CBC hemoglobin 11.3 g/dL 11.5-1 5.5 low Not Available [facility] (Lab) [address] [place], [address], 08/03/2016 18:56:51 08/04/1908/03/2016 CBC hematocrit 35.3 % 36.0-4 8.0 low Not Available [facility] (Lab) [address] [place], [address], 08/03/2016 18:56:51 08/04/1908/03/2016 CBC MCV 92 fL 80-95 Not Available [facility] (Lab) [address] [place], [address], 08/03/2016 18:56:51 08/04/19 17 08/03/2016 CBC MCHC 32 g/dL 32-36 Not Available [facility] (Lab) [address] [place], [address], 08/03/2016 18:56:51 08/04/19 17 08/03/2016 CBC platelets 359 K/uL 155-37 9 Not Available [facility] (Lab) [address] [place], [address], 08/03/2016 18:56:51 08/04/19 17 08/03/2016 CBC RDW 12.4 % 11.5-1 4.5 Not Available [facility] (Lab) [address], [place], [address], 08/03/2016 18:56:51 08/04/19 17 08/03/2016 CMP, serum or plasm a glucose, serum 92 mg/dL 65-99 Not Available [facility] ([facility]) [address], [place], [address], 08/03/2016 19:38:15 08/04/19 17 08/03/2016 CMP, serum or plasm a BUN 6 mg/dL 8-26 low Not Available [facility] (Lab) [address], [place], [address], 08/03/2016 19:38:15 08/04/19 17 08/03/2016 CMP, serum or plasm a creatinine, serum 0.70 mg/dL 0.50-1 .40 Not Available [facility] (Lab) [address] [place], [address], 08/03/2016 19:38:15 08/04/19 17 08/03/2016 CMP, serum or plasm a BUN/creatnin e ratio 8.6 Not Available [facility] ([facility]) [address], [place], [address], 08/03/2016 19:38:15 08/04/19 17 08/03/2016 CMP, serum or plasm a sodium, serum 139.0 mEq/L 136.0- 144.0 Not Available [facility] (Lab) [address], [place], [address], 08/03/2016 19:38:15 08/04/19 17 08/03/2016 CMP, serum or plasm a potassium, serum 4.0 mmol/ L 3.5-5. 3 Not Available [facility] (Lab) [address], [place], [address], 08/03/2016 19:38:15 08/04/19 17 08/03/2016 CMP, serum or plasm a chloride, serum 99 mmol/ l 101-11 1 low Not Available [facility] (Lab) [address], [place], [address], 08/03/2016 19:38:15 08/04/19 17 08/03/2016 CMP, serum or plasm a carbon dioxide total 25.7 mmol/ L 21.0-3 2.0 Not Available [facility] (Lab) [address], [place], [address], 08/03/2016 19:38:15 08/04/19 17 08/03/2016 CMP, serum or plasm a aniongp 18.0 mmol/ L Not Available [facility] (Lab) [address], [place], [address], 08/03/2016 19:38:15 08/04/19 17 08/03/2016 CMP, serum or plasm a calcium, serum 9.8 mg/dL 8.2-10 .0 Not Available [facility] (Lab) [address], [place], [address], 08/03/2016 19:38:15 08/04/19 17 08/03/2016 CMP, serum or plasm a total protein 8.5 g/dL 6.7-8. 2 high Not Available [facility] (Lab) [address], [place], [address], 08/03/2016 19:38:15 08/04/19 17 08/03/2016 CMP, serum or plasm a albumin, serum 4.6 g/dL 3.5-5. 5 Not Available [facility] (Lab) [address] [place], [address], 08/03/2016 19:38:15 08/04/19 17 08/03/2016 CMP, serum or plasm a agratio 1.2 Not Available [facility] (Lab) [address] [place], [address], 08/03/2016 19:38:15 08/04/19 17 08/03/2016 CMP, serum or plasm a bilt 0.4 mg/dL 0.2-1. 0 Not Available [facility] (Lab) [address] [place], [address], 08/03/2016 19:38:15 08/04/19 17 08/03/2016 CMP, serum or plasm a AST 27.0 U/L 10.0-4 2.0 Not Available [facility] (Lab) [address] [place], [address], 08/03/2016 19:38:15 08/04/19 17 08/03/2016 CMP, serum or plasm a ALT 34.0 U/L 10.0-6 0.0 Not Available [facility] (Lab) [address], [place], [address], 08/03/2016 19:38:15 08/04/19 17 08/03/2016 CMP, serum or plasm a alk phos 93.0 IU/L 42.0-1 21.0 Not Available [facility] (Lab) [address] [place], [address], 08/03/2016 19:38:15 08/04/19 17 08/03/2016 CMP, serum or plasm a osmol 275.0 mOsm/ L 275.0- 301.0 Not Available [facility] (Lab) [address] [place], [address], 08/03/2016 19:38:15 08/04/19 17 08/03/2016 CMP, serum or plasm a eGFR, AM 121 m/lmi n/1.7 3_m >=60 Not Available [facility] [address], [place], [address], 08/03/2016 19:38:15 08/04/19 17 08/03/2016 CMP, serum or plasm a eGFR, non- AM 100 mL/mi n/1.7 3/m >=60 Not Available [facility] (Lab) [address], [place], [address], 08/03/2016 19:38:15 08/04/19 17 08/03/2016 lipid panel w/ direc t LDL, serum cholestrol 269.0 mg/dL 140.0- 200.0 high Not Available [facility] ([facility]) [address] [place], [place], [address], 08/03/2016 19:38:55 08/04/19 17 08/03/2016 lipid panel w/ direc t LDL, serum triglyceride s 130 mg/mL 150-19 9 low Not Available [facility] ([facility]) [address], [place], [address], 08/03/2016 19:38:55 08/04/19 17 08/03/2016 lipid panel w/ direc t LDL, serum HDL cholesterol 62.0 mg/dL 40.0-1 00.0 Not Available [facility]) [address] [place], [address], 08/03/2016 19:38:55 08/04/19 17 08/03/2016 lipid panel w/ direc t LDL, serum LDL direct 198 mg/dL <=100 high Not Available [facility] ([facility]) [address] [place], [address], 08/03/2016 19:38:55 08/04/19 17 08/03/2016 lipid panel w/ direc t LDL, serum cholhdl 4.30 mg/dL 0.00-4 .98 Not Available [facility] (Lab) [address] [place], [address], 08/03/2016 19:38:55 08/04/19 17 08/04/2016 TSH, serum or plasm a TSH 2.780 uIU/m L 0.450- 4.500 Not Available [facility] (Lab) [address], [place], [address], 08/04/2016 07:19:43 08/04/19 17 08/04/2016 TSH, serum or plasm a T4,free(dire ct) 1.00 NG/dL 0.82-1 .77 Not Available [facility] (Lab) [address] [place], [address], 08/04/2016 07:19:43 08/04/19 17 08/04/2016 HbA1c (hemo globi n A1c), blood hemoglobin A1C 6.5 % 4.8-5. 6 high . Pre-d iabet es: 5.7 - 6.4 Diabe linda: >6.4 Glyce mavis contr ol for adult s with diabe linda: <7.0 Not Available [facility] (Lab) [address], [place], [address], 08/04/2016 09:22:37 11/05/19 17 11/04/2016 BMP, serum or plasm a glucose, serum 98 mg/dL 65-99 Not Available [facility] (Lab) [address], [place], [address], 11/04/2016 20:10:48 11/05/19 17 11/04/2016 BMP, serum or plasm a BUN 8 mg/dL 8-26 Not Available [facility] (Lab) [address] [place], [address], 11/04/2016 20:10:48 11/05/19 17 11/04/2016 BMP, serum or plasm a creatinine, serum 0.70 mg/dL 0.50-1 .40 Not Available [facility] (Lab) [address] [place], [address], 11/04/2016 20:10:48 11/05/19 17 11/04/2016 BMP, serum or plasm a BUN/creatnin e ratio 11.4 Not Available [facility] (Lab) [address], [place], [address], 11/04/2016 20:10:48 11/05/19 17 11/04/2016 BMP, serum or plasm a sodium, serum 141.0 mEq/L 136.0- 144.0 Not Available [facility] (Lab) [address], [place], [address], 11/04/2016 20:10:48 11/05/19 17 11/04/2016 BMP, serum or plasm a potassium, serum 3.9 mmol/ L 3.5-5. 3 Not Available [facility] (Lab) [address], [place], [address], 11/04/2016 20:10:48 11/05/19 17 11/04/2016 BMP, serum or plasm a chloride, serum 99 mmol/ l 101-11 1 low Not Available [facility] (Lab) [address], [place], [address], 11/04/2016 20:10:48 11/05/19 17 11/04/2016 BMP, serum or plasm a carbon dioxide total 28.2 mmol/ L 21.0-3 2.0 Not Available [facility] (Lab) [address], [place], [address], 11/04/2016 20:10:48 11/05/19 17 11/04/2016 BMP, serum or plasm a aniongp 18.0 mmol/ L Not Available [facility] (Lab) [address], [place], [address], 11/04/2016 20:10:48 11/05/19 17 11/04/2016 BMP, serum or plasm a calcium, serum 9.8 mg/dL 8.2-10 .0 Not Available [facility] (Lab) [address] [place], [address], 11/04/2016 20:10:48 11/05/19 17 11/04/2016 BMP, serum or plasm a osmol 280.0 mOsm/ L 275.0- 301.0 Not Available [facility] (Lab) [address] [place], [address], 11/04/2016 20:10:48 11/05/19 17 11/04/2016 BMP, serum or plasm a eGFR, AM 121 m/lmi n/1.7 3_m >=60 Not Available [facility] (Lab) [address], [place], [address], 11/04/2016 20:10:48 11/05/19 17 11/04/2016 BMP, serum or plasm a eGFR, non- AM 100 mL/mi n/1.7 3/m >=60 Not Available [facility] (Lab) [address] [place], [address], 11/04/2016 20:10:48 11/05/19 17 11/04/2016 lipid panel w/ direc t LDL, serum cholestrol 168.0 mg/dL 140.0- 200.0 Not Available [facility] (Lab) [address] [place], [address], 11/04/2016 20:10:49 11/05/19 17 11/04/2016 lipid panel w/ direc t LDL, serum triglyceride s 97 mg/mL 150-19 9 low Not Available [facility] (Lab) [address] [place], [address], 11/04/2016 20:10:49 11/05/19 17 11/04/2016 lipid panel w/ direc t LDL, serum HDL cholesterol 55.0 mg/dL 40.0-1 00.0 Not Available [facility] (Lab) [address] [place], [address], 11/04/2016 20:10:49 11/05/19 17 11/04/2016 lipid panel w/ direc t LDL, serum LDL direct 110 mg/dL <=100 high Not Available [facility] (Lab) [address] [facility] [place], [address], 11/04/2016 20:10:49 11/05/19 17 11/04/2016 lipid panel w/ direc t LDL, serum cholhdl 3.10 mg/dL 0.00-4 .98 Not Available [facility] (Lab) [address], [place], [address], 11/04/2016 20:10:49 11/05/19 17 11/05/2016 HbA1c (hemo globi n A1c), blood hemoglobin A1C 6.6 % 4.8-5. 6 high . Pre-d iabet es: 5.7 - 6.4 Diabe linda: >6.4 Glyce mavis contr ol for adult s with diabe linda: <7.0 Not Available [facility] (Lab) [address], [place], [address], 11/05/2016 06:16:52 10/31/19 18 10/30/2017 CBC w/ auto diff WBC 6.4 K/uL 3.4-10 .8 Not Available [facility] (Lab) [address], [place], [address], 10/30/2017 19:21:28 10/31/19 18 10/30/2017 CBC w/ auto diff red blood count 3.8 M/uL 4.2-5. [address] [facility] [address] [place], [address], 10/30/2017 19:21:28 10/31/19 18 10/30/2017 CBC w/ auto diff hemoglobin 11.6 g/dL 11.5-1 5.5 Not Available [facility] (Lab) [address] [place], [address], 10/30/2017 19:21:28 10/31/19 18 10/30/2017 CBC w/ auto diff hematocrit 35.4 % 36.0-4 8.0 low Not Available [facility] (Lab) [address] [place], [address], 10/30/2017 19:21:28 10/31/19 18 10/30/2017 CBC w/ auto diff MCV 94 fL 80-95 Not Available [facility] (Lab) [address] [place], [address], 10/30/2017 19:21:28 10/31/19 18 10/30/2017 CBC w/ auto diff MCH 31 pg 27-32 Not Available [facility] (Lab) [address] [place], [address], 10/30/2017 19:21:28 10/31/19 18 10/30/2017 CBC w/ auto diff MCHC 33 g/dL 32-36 Not Available [facility] (Lab) [address] [place], [address], 10/30/2017 19:21:28 10/31/19 18 10/30/2017 CBC w/ auto diff platelets 310 K/uL 155-37 9 Not Available [facility] (Lab) [address] [place], [address], 10/30/2017 19:21:28 10/31/19 18 10/30/2017 CBC w/ auto diff RDW 12.6 % 11.5-1 4.5 Not Available [facility] (Lab) [address] [place], [address], 10/30/2017 19:21:28 10/31/19 18 10/30/2017 CBC w/ auto diff MPV 10.7 fL 8.9-12 .7 Not Available [facility] (Lab) [address] [place], [address], 10/30/2017 19:21:28 10/31/19 18 10/30/2017 CBC w/ auto diff neutrophils absolute 2.2 K/uL 1.4-7. 0 Not Available [facility] (Lab) [address] [place], [address], 10/30/2017 19:21:28 10/31/19 18 10/30/2017 CBC w/ auto diff lymphs (absolute) 3.3 K/uL 0.7-3. 1 high Not Available [facility] (Lab) [address] [place], [address], 10/30/2017 19:21:28 10/31/19 18 10/30/2017 CBC w/ auto diff monocytes (absolute) 0.5 K/uL 0.1-0. 9 Not Available [facility] (Lab) [address] [place], [address], 10/30/2017 19:21:28 10/31/19 18 10/30/2017 CBC w/ auto diff eos (absolute) 0.4 K/uL 0.0-0. 4 Not Available [facility] (Lab) [address], [place], [address], 10/30/2017 19:21:28 10/31/19 18 10/30/2017 CBC w/ auto diff baso (absolute) 0.0 K/uL 0.1-0. 3 low Not Available [facility] (Lab) [address], [place], [address], 10/30/2017 19:21:28 10/31/19 18 10/30/2017 CBC w/ auto diff neut % 34.0 % 40.0-7 4.0 low Not Available [facility] (Lab) [address], [place], [address], 10/30/2017 19:21:28 10/31/19 18 10/30/2017 CBC w/ auto diff lymphs % 52.1 % 14.0-4 6.0 high Not Available [facility] (Lab) [address] [place], [address], 10/30/2017 19:21:28 10/31/19 18 10/30/2017 CBC w/ auto diff mono % 7.1 % 4.0-12 .0 Not Available [facility] (Lab) [address] [place], [address], 10/30/2017 19:21:28 10/31/19 18 10/30/2017 CBC w/ auto diff eos % 6 % <=5 high Not Available [facility] (Lab) [address], [place], [address], 10/30/2017 19:21:28 10/31/19 18 10/30/2017 CBC w/ auto diff baso % 0.3 % 0.1-1. 1 Not Available [facility] (Lab) [address], [place], [address], 10/30/2017 19:21:28 10/31/19 18 10/30/2017 lipid panel w/ direc t LDL, serum cholestrol 165.0 mg/dL 140.0- 200.0 Not Available [facility] (Lab) [address], [place], [address], 10/30/2017 19:42:01 10/31/19 18 10/30/2017 lipid panel w/ direc t LDL, serum triglyceride s 139 mg/dL <=150 Not Available [facility] ([facility]) [address], [place], [address], 10/30/2017 19:42:01 10/31/19 18 10/30/2017 lipid panel w/ direc t LDL, serum HDL cholesterol 50.0 mg/dL 40.0-1 00.0 Not Available [facility] (Lab) [address] [place], [address], 10/30/2017 19:42:01 10/31/19 18 10/30/2017 lipid panel w/ direc t LDL, serum LDL direct 107 mg/dL <=100 high Not Available [facility] ([facility]) [address] [place], [address], 10/30/2017 19:42:01 10/31/19 18 10/30/2017 lipid panel w/ direc t LDL, serum cholhdl 3.30 mg/dL 0.00-4 .98 Not Available [facility] (Lab) [address] [place], [address], 10/30/2017 19:42:01 10/31/19 18 10/30/2017 CMP, serum or plasm a glucose, serum 90 mg/dL 65-99 Not Available [facility] (Lab) [address], [place], [address], 10/30/2017 19:42:06 10/31/19 18 10/30/2017 CMP, serum or plasm a BUN 8 mg/dL 8-26 Not Available [facility] (Lab) [address] [place], [address], 10/30/2017 19:42:06 10/31/19 18 10/30/2017 CMP, serum or plasm a creatinine, serum 0.70 mg/dL 0.50-1 .40 Not Available [facility] (Lab) [address], [place], [address], 10/30/2017 19:42:06 10/31/19 18 10/30/2017 CMP, serum or plasm a BUN/creatnin e ratio 11.4 Not Available [facility] (Lab) [address], [place], [address], 10/30/2017 19:42:06 10/31/19 18 10/30/2017 CMP, serum or plasm a sodium, serum 139.0 mEq/L 136.0- 144.0 Not Available [facility] (Lab) [address] [place], [address], 10/30/2017 19:42:06 10/31/19 18 10/30/2017 CMP, serum or plasm a potassium, serum 4.6 mmol/ L 3.5-5. 3 Not Available [facility] (Lab) [address] [place], [address], 10/30/2017 19:42:06 10/31/19 18 10/30/2017 CMP, serum or plasm a chloride, serum 102 mmol/ l 101-11 1 Not Available [facility] (Lab) [address] [place], [address], 10/30/2017 19:42:06 10/31/19 18 10/30/2017 CMP, serum or plasm a carbon dioxide total 25.9 mmol/ L 21.0-3 2.0 Not Available [facility] (Lab) [address], [place], [address], 10/30/2017 19:42:06 10/31/19 18 10/30/2017 CMP, serum or plasm a aniongp 16.0 mmol/ L Not Available [facility] (Lab) [address], [place], [address], 10/30/2017 19:42:10/31/19 18 10/30/2017 CMP, serum or plasm a calcium, serum 10.1 mg/dL 8.2-10 .0 high Not Available [facility] (Lab) [address], [place], [address], 10/30/2017 19:42:06 10/31/19 18 10/30/2017 CMP, serum or plasm a total protein 8.0 g/dL 6.7-8. 2 Not Available [facility] (Lab) [address] [place], [address], 10/30/2017 19:42:06 10/31/19 18 10/30/2017 CMP, serum or plasm a albumin, serum 4.5 g/dL 3.5-5. 5 Not Available [facility] (Lab) [address], [place], [address], 10/30/2017 19:42:10/31/19 18 10/30/2017 CMP, serum or plasm a agratio 1.3 Not Available [facility] (Lab) [address] [place], [address], 10/30/2017 19:42:10/31/19 18 10/30/2017 CMP, serum or plasm a bilt 0.3 mg/dL 0.2-1. 0 Not Available [facility] (Lab) [address] [place], [address], 10/30/2017 19:42:06 10/31/19 18 10/30/2017 CMP, serum or plasm a AST 21.0 U/L 10.0-4 2.0 Not Available [facility] (Lab) [address] [place], [address], 10/30/2017 19:42:06 10/31/19 18 10/30/2017 CMP, serum or plasm a ALT 23.0 U/L 10.0-6 0.0 Not Available [facility] (Lab) [address] [place], [address], 10/30/2017 19:42:06 10/31/19 18 10/30/2017 CMP, serum or plasm a alk phos 87.0 IU/L 42.0-1 21.0 Not Available [facility] (Lab) [address] [place], [address], 10/30/2017 19:42:06 10/31/19 18 10/30/2017 CMP, serum or plasm a osmol 275.0 mOsm/ L 275.0- 301.0 Not Available [facility] (Lab) [address] [place], [address], 10/30/2017 19:42:06 10/31/19 18 10/30/2017 CMP, serum or plasm a eGFR, AM 120 m/lmi n/1.7 3_m >=60 Not Available [facility] (Lab) [address] [place], [address], 10/30/2017 19:42:06 10/31/19 18 10/30/2017 CMP, serum or plasm a eGFR, non- AM 99 mL/mi n/1.7 3/m >=60 Not Available [facility] (Lab) [address] [place], [address], 10/30/2017 19:42:06 10/31/19 18 10/30/2017 TSH, serum or plasm a TSH 2.25 uIU/m L 0.50-4 .50 Not Available [facility] (Lab) [address] [facility], [place], [address], 10/30/2017 20:06:36 10/31/19 18 10/31/2017 HbA1c (hemo globi n A1c), blood hemoglobin A1C 5.9 % 4.8-5. 6 high . Pre-d iabet es: 5.7 - 6.4 Diabe linda: >6.4 Glyce mavis contr ol for adult s with diabe linda: <7.0 Not Available [facility] (Lab) [address], [place], [address], 10/31/2017 07:10:00 10/31/19 18 10/31/2017 T4, total , serum thyroxine T4 6.8 ug/dL 4.5-12 .0 Not Available [facility] (Lab) [address], [place], [address], 10/31/2017 10:11:05 11/22/19 17 11/19/2016 imagi ng/di agnos tic resul t No observ ation record ed. [facility] (Imaging) [address], [place], [address], 01/31/2017 15:40:59 12/07/19 17 imagi ng/di agnos tic resul t No observ ation record ed. [facility] Not Available 2016 15:40:59 02/26/20 18 02/25/2018 CT, abdom en + pelvi s, w/ contr ast No observ ation record ed. [facility] Not Available 2017 13:14:24 Result Notes None recorded. Problems Name Problem SNOMED Code Status Onset Date Resolution Date Notes Provider Name and Address Organization Details Recorded Time Essential hypertension 23892387 Active Farhad Fuchs MD Attn: Louie beckwith,[address] [facility], [place], [address], [place] 6 17:37:32 Low back pain 249770932 Active Farhad Fuchs MD Attn: Louie beckwith,[address] [facility], [place], [address], [facility] 6 17:37:32 Macromastia 988040254 Active Farhad Fuchs MD Attn: Louie beckwith,[address] [facility], [place], [address], [facility] 6 17:37:32 Obesity 187206231 Active 2016 Carson Benavides MD Attn: Louie beckwith[address] [facility], [place], [address], [facility] 7 14:52:44 Hyperglycemia 68850289 Active 2016 Carson Benavides MD Attn: Louie beckwith,[address] [facility], [place], [address], [facility] 7 15:44:21 Problem Notes None recorded. Medical [...] Address Organization Details Last Updated DateTime 7 [address]56[address].0 7 g 157.48 cm 36.8 kg/m2 76 /min 20 /min 98 [degF] 140/100 mm[Hg] José Miguel Rosen MA [facility] 7 14:38:39 Date Recorded Body height Body weight Body mass index (BMI) Heart rate Respiratory rate Systolic And Diastolic Provider Name and Address Organization Details Last Updated DateTime 7 157.48 cm 60046.4 7 g 36.6 kg/m2 80 /min 24 /min 130/100 mm[Hg] José Miguel Rosen MA [facility] 7 17:19:17 Date Recorded Body height Body mass index (BMI) Body weight Heart rate Respiratory rate Body temperature Systolic And Diastolic Provider Name and Address Organization Details Last Updated DateTime 7 157.48 cm 35.5 kg/m2 96526.9 2 g 76 /min 20 /min 98.1 [degF] 120/88 mm[Hg] José Miguel Rosen MA [facility] 7 12:22:51 Date Recorded Body height Body mass index (BMI) Body weight Heart rate Respiratory rate Body temperature Systolic And Diastolic Provider Name and Address Organization Details Last Updated DateTime 8 157.48 cm 34.4 kg/m2 49882.3 7 g 76 /min 20 /min 98.5 [degF] 110/88 mm[Hg] José Miguel Rosen MA [facility] 8 10:37:37 Date Recorded Body height Body mass index (BMI) Body weight Heart rate Respiratory rate Body temperature Systolic And Diastolic Provider Name and Address Organization Details Last Updated DateTime 7 157.48 cm 35.8 kg/m2 94245.1 g 76 /min 20 /min 98.3 [degF] 130/100 mm[Hg] José Miguel Rosen MA [facility] 7 15:31:42 Social History None recorded. Functional Status None recorded. Mental Status None recorded. Family History Nothing Reported. Medical History No medical history recorded. Gynecological HistoryNo gynecological history recorded. Obstetrics History GPAL:G 0 P 0 0 0 0 Past Encounters Encounter ID Performer Location Encounter Start Date Encounter Closed Date Diagnosis/Indication Diagnosis SNOMED-CT Code Diagnosis ICD10 Code Diagnosis IMO Codes Diagnosis Note Farhad Fuchs MD [facility] (Adult/Fa m Med) [address] [place], [place] [id number] 9 07/24/2014 13:56:05 07/24/2014 17:56:19 Essential hypertension 55071851 Low back pain 565403347 [id number] Farhad Fuchs MD [facility] (Adult/Fa m Med) [address] [place] [address] 9 02/02/2015 10:57:57 02/03/2015 10:59:32 Essential hypertension 24506128 I10 Low back pain 612172563 M54.5 [id number] Farhad Fuchs MD [facility] (Adult/Fa m Med) [address] [place], [place] [id number] 9 02/11/2015 15:18:29 02/11/2015 18:05:07 Essential hypertension 77797911 I10 Low back pain 264035025 M54.5 [id number] Farhad Fuchs MD [facility] (Adult/Fa m Med) [address] [place] [address] 9 03/30/2015 16:24:13 03/31/2015 16:59:15 Essential hypertension 30255170 I10 Low back pain 992946885 M54.5 [id number] Farhad Fuchs MD [facility] (Adult/Fa m Med) [address] [place] [address] 9 05/13/2015 15:36:43 05/15/2015 15:22:39 Essential hypertension 23786577 I10 Low back pain 560944778 M54.5 Macromastia 040634513 N6 2 [id number] Carson Benavides MD [facility] (Adult/Fa m Med) [address] [place] [address] 9 08/03/2016 14:25:28 08/04/2016 08:56:28 Low back pain 060080652 M54.5 continue meds. may needs MRIcan not take NSAIDs or Tramadol? Essential hypertension 09592064 I10 controlled Obesity 609077601 E66.9 diet/exerc ises. Hyperglycemia 07005591 R 73.9 on metformin but is reluctant to take it. asking for labs. [id number] aCrson Benavides MD [facility] (Adult/Fa m Med) [address] [place] [address] 08/30/2016 16:10:24 08/31/2016 09:54:10 Obesity 694752593 E66.9 diet/exerc ises. Low back pain 561031742 M54.5 continue meds. prn Vicodin. Macromastia 919569628 N6 2 supposed to have reduction surgery in November Essential hypertension 69103108 I10 controlled Hyperglycemia 85163132 R 73.9 on metformin but is reluctant to take it.repeate d labs showed HgA1C 6.5--> restart metformin 500 mg po BID/ diet/exerc ises.had glucometer at home. Hyperlipidemia 56046317 E78.5 LDL 351 [id number] Carson Benavides MD [facility] (Adult/Fa m Med) [address] [place] [address] 11/04/2016 12:08:27 11/08/2016 09:55:49 Obesity 769378818 E66.9 diet/exerc ises. Low back pain 958195799 M54.5 continue meds. prn Vicodin. Essential hypertension 43744755 I10 controlled Macromastia 745174857 N6 2 supposed to have reduction surgery in November Hyperlipidemia 26642321 E78.5 LDL 198 Hyperglycemia 10978410 R 73.9 on metformin. repeat labs [id number] Carson Benavides MD [facility] (Adult/Fa m Med) [address] [place] [address] 01/31/2017 15:26:15 02/01/2017 16:03:17 Obesity 226826638 E66.9 diet/ exercises. Low back pain 451484404 M54.5 continue meds. Macromastia 638742617 N6 2 had reduction surgery Essential hypertension 53239136 I10 controlled Bronchitis 20423208 J40 OTC meds. Hyperglycemia 03198993 R 73.9 Hga1C 6.5--> 6.6on metformin. Hyperlipidemia 21035708 E78.5 LDL is better [id number] Carson Benavides MD [facility] (Adult/Fa m Med) [address] [place] [address] 11/08/2017 10:13:35 11/08/2017 13:55:10 Obesity 833325019 E66.9 diet/ exercises. Low back pain 880162064 M54.5 continue meds. Essential hypertension 93360280 I10 controlled Hyperlipidemia 45618802 E78.5 LDL is better Hyperglycemia 01304319 R 73.9 Hga1C 6.5--> 6.6 --> 5.9on metformin. 1/2 tab po bid Toothache 55003265 K08.8 9 Health Concerns Section Related Observation LastModified by Organization Detai ls LastModified Time None Recorded Concern Status LastModified by Organization Details LastModified Time None Recorded Advance Directives Directive None Recorded Payers Insurance Date Sequence Insurance Name Policy Number Policy Rivera Covered Member ID Rivera Member ID Guarantor Name 02/02/2015 1 [facility] (MEDICAID HMO) Johanna [place] [id number] Roshonda [place] 03/30/2015 2 [facility] (MEDICAID HMO) Johanna Goodard [id number] Roshonda [place] 05/13/2015 1 [employer] [id number] Johanna Dominguez [id number] Roshonda [place] 08/03/2016 1 [place] [facility] (PPO) [id number] Johanna Dominguez [id number] Roshonda [place] 08/03/2016 1 [place] Roshonda [place] [id number] Roshonda [place] 03/26/2018 1 [facility] (MEDICAID HMO) [id number] Johanna Dominguez [id number] Roshonda Estela Notes Date Note Type Note Provider Name and Address Organization Details Recorded Time 08/03/2016 text/html no complaints Carson Benavides MD Attn: Accounting,[address] [facility], [place], [address], [facility] 08/03/2016 15:03:27 08/30/2016 text/html left foot pain after trauma/ fractured toe Carson Benavides MD Attn: Accounting,[address] [place], [address], [facility] 08/31/2016 08:13:13 11/04/2016 text/html no new complaints Carson Benavides MD Attn: Accounting,[address] [facility], [place], [address], [facility] 11/04/2016 12:43:17 01/31/2017 text/html no new complaints Carson Benavides MD Attn: Accounting,[address] [facility], [place], [address], [facility] 01/31/2017 15:56:04 11/08/2017 text/html no new complaints Carson Benavides MD Attn: Accounting,[address] [place], [address], [facility] 11/08/2017 11:01:30 OBGyn Episode No OBEpisode recorded.
--- OUTSIDE RECORDS SUMMARY | 2025-02-12 19:42 | XMS_ITS | Encounter Summary ---
Author Organization [facility] Address [address] [place] [address] Care Team Providers Care Property Disposal Officer Name Role Phone Carson Benavides MD Primary Care Provider [phone] Viridiana Zaidi NP Primary Care Provider [phone] Encounter Details Date Type Department Care Team (Late st Contact Info) Description 09/22/2018 Abstract [facility] CONVERSION [address] [place] [address] , Generic Conversion, Social History Tobacco Use [...] st Contact Info) Description 05/08/2025 9:20 AM LIVESTOCK TRUCKER Office Visit [facility] Family Medicine - [address] [facility] [address] [place] [phone] Viridiana Zaidi, ANUJA [address] [place], [place] [phone] documented as of this encounter Visit Diagnoses Not on filedocumented in this encounter Additional Health Concerns Infection Onset Date Last Indicated Resolved Time MRSA 11/21/2016 11/21/2016 documented as of this encounter Care Teams Property Disposal Officer Relationship Specialty Start Date End Date Carson Benavides MD [address] [place] [address] PCP - General INTERNAL MEDICINE 08/19/17 06/16/21 Viridiana Zaidi NP [address] [facility] [address] [place] [address] PCP - General NURSE PRACTITIONER 06/17/21 documented as of this encounter
--- OUTSIDE RECORDS SUMMARY | 2025-02-12 19:42 | XMS_ITS | Encounter Summary ---
Author Organization [facility] Address [address] [place] [address] Care Team Providers Care Cash Accounting Clerk Name Role Phone Viridiana Zaidi HEARING HEALTHCARE PRACTITIONER Primary Care Provider [phone] Encounter Details Date Type Department Care Team (Late Contact Info) Description 10/12/2022 MyChart Message Enc [facility] Medical [facility] [address] [place], [place] [address] [facility] Provider Air Quality Message Social History [...] st Contact Info) Description 05/08/2025 9:20 AM MERCHANT BANKER Office Visit [facility] Medical [facility] Family Medicine [facility] [address] [facility] [address] [place], [place] [phone] Viridiana Zaidi NP [address] [place] [address] documented as of this encounter Visit Diagnoses Not on filedocumented in this encounter Additional Health Concerns Infection Onset Date Last Indicated Resolved Time MRSA 11/21/2016 11/21/2016 documented as of this encounter Care Teams Cash Accounting Clerk Relationship Specialty Start Date End Date Viridiana Zaidi NP [address] [place] [address] PCP - General NURSE PRACTITIONER 06/17/21 documented as of this encounter
--- OUTSIDE RECORDS SUMMARY | 2025-02-12 19:42 | XMS_ITS | Encounter Summary ---
Author Organization [facility] Address [address] [place] [address] Care Team Providers Care Dietitian Teacher Name Role Phone Viridiana Zaidi SAND SHOVELER Primary Care Provider [phone] Encounter Details Date Type Department Care Team (Late st Contact Info) Description 12/12/2023 [place] Message Enc [facility] Family Medicine [facility] [address] [phone] Viridiana Zaidi NP [address] [place] [address] [place] [address] Anemia Social History Tobacco Use Types [...] st Contact Info) Description 05/08/2025 9:20 AM PARI MUTUEL TICKET CASHIER Office Visit [facility] Family Medicine [facility] [address] [address] Viridiana Zaidi NP [address] [place] [address] documented as of this encounter Visit Diagnoses Not on filedocumented in this encounter Additional Health Concerns Infection Onset Date Last Indicated Resolved Time MRSA 11/21/2016 11/21/2016 documented as of this encounter Care Teams Dietitian Teacher Relationship Specialty Start Date End Date Viridiana Zaidi NP [address] [place] [address] PCP - General NURSE PRACTITIONER 06/17/21 documented as of this encounter
--- OUTSIDE RECORDS SUMMARY | 2025-02-12 19:42 | XMS_ITS | Clinical Summary ---
Author Organization [facility] Yessenia gilmore Shayy Address [facility] [place] [address] Care Team Providers Care Immunology Teacher Name Role Phone Unavailable Primary Care Provider [...] Encounters Date Type Department Care Team Description 02/11/2025 External Device Data STL ABSTRACTION Provider, Abstract 01/06/2025 Telephone [facility] Oncology and Hematology - Cem [address] [facility] [address] [place] [address] Nils De Oliveira MD labs [...] 157.5 cm (5' 2) 03/19/2024 1:13 PM UPHOLSTERER INSIDE Body Mass Index 36.1 03/19/2024 1:13 PM UPHOLSTERER INSIDE Plan of Treatment Health Maintenance Due Date [...] 05/23/2034 05/23/2024 Colorectal Cancer Screening 05/23/2034 Insurance [facility] Address: [facility] [address] [place] [address]
--- OUTSIDE RECORDS SUMMARY | 2025-02-12 19:42 | XMS_ITS | Clinical Summary ---
Author Organization [facility] [address] [facility] [address] Address [address] [place] [address] Care Team Providers Care Checkering Machine Adjuster Name Role Phone Unavailable Primary Care Provider [...] back to PT and with someone in [place]. Type 2 diabetes mellitus wit hout complication, [...] Pelvic and perineal pain;Recorded Elsewhere: No Location: [facility] Source: EHR Chronic: N Practice ID: [id number] Billable Time: 11:30:00 AM Acute vaginitis 02/08/2017 Overview (10/07/2024): Acute vulvovaginitis;Recorded Elsewhere: No Location: [facility] Source: EHR Chronic: N Practice ID: [id number] Billable Time: 01:00:00 PM Hyperglycemia 01/31/2017 Dysuria 01/13/2017 Overview (10/07/2024): Dysuria;Practice ID: 0001 Itching 10/11/2016 Overview (10/07/2024): Pruritus, unspecified;Recorded Elsewhere: No Location: [facility] Source: EHR Chronic: N Practice ID: [id number] [...] lisinopril. 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 Unilateral facial weakness; Comments: [facility] 03/18/2016 - Seizure (HCC) Seizure; Comment s: [facility] 03/18/2016 - Essential hypertension Essential hypertension; Comments: [facility] 03/18/2016 - Memory loss Memory loss; Com ments: [facility] 03/18/2016 - Hypertrophy of tonsils Tonsillar hypertrophy; Comments: [facility] 03/18/2016 - Hematuria Hematuria; Comme nts: [facility] 03/18/2016 - Borderline diabetes mellitus Pre diabetes; Comments: [facility] 03/18/2016 - Family History Medical History Relation Name Comments Colon cancer Mother Relation Name Status Comments Mother Social History Tobacco Use Types Packs/Day Years Used Date Smoking Tobacco: Never Tobacco Cessation:Counseling Given: Not Answered Comments Unknown Sex and Gender Information Value Date Recorded Sex Assigned at Not on file Legal Sex Female 8:37 PM DIRECTOR OF ONLINE MERCHANDISING Gender Identity Not on file Sexual Orientation [...] - 5.9 % 02/03/2015 10:22 AM CDT [facility] HISTORICAL RESULTS Comment: [place] [employer] recommends that the goal of therapy should be an A1C hemoglobin of <7%. Reevaluate the treatment regimen in patients with an A1C >8%. 02/03/2015 5:40 AM CDT 02/03/2015 5:59 AM CDT Narrative [employer] HISTORICAL RESULTS - 02/03/2015 10:22 AM CDT Comment In AM Farhad Fuchs MD LAB BLOOD ORDERABLES Final Result Performing Organization Address City/[facility] Co de Phone Number [facility] HISTORICAL RESULTS from Last 3 Months or Most Recently Relevant to Health Maintenance Insurance [facility]PPO Address: [facility] [address] [place] [address] [facility] H[facility]/PPO Address: [facility] [address] [place] [address]
--- OUTSIDE RECORDS SUMMARY | 2025-02-12 19:42 | XMS_ITS | Clinical Summary ---
Author Organization [facility] Address [facility] [place] [address] Care Team Providers Care Integrative Medicine Physician Name Role Phone Viridiana Zaidi NP Primary Care Provider [phone] [phone] Allergies Active Allergy Reactions Criticality Noted Date [...] back to PT and with someone in [place]. Assessment & Plan (12/11/2023 10:44 AM CDT): Referral to PT in [place] placed. Gastroesophageal reflux dise ase, unspecified whether [...] AM CDT): Encourage stress relieving activities. Health curriculum coach also recommended. Vitamin D deficiency 10/19/2021 [...] Diet and lifestyle changes discussed. Encourage health curriculum coach as well and personal care worker to help with accountability. Pt's goals are [...] exacerbate snoring and sleep-related problems, such as ORTHOPHOTOGRAPHY TECHNICIAN depressants, especially at bedtime. Microscopic hematuria 07/05/20232023 Elevated liver enzymes 07/05/202312/10 Pelvic pain 07/05/2023 12/11/2023 Sprain of left ankle, unspec ified ligament, subsequent encounter 03/16/2022 12/11/2023 Abdominal pain, unspecified abdominal location 09/07/2021 09/07/2021 Low back pain 06/24/2021 12/11/2023 Macromastia 06/24/2021 12/11/2023 Prediabetes 06/24/2021 12/11/2023 Hyperglycemia 01/31/2017 12/11/2023 Encounters Date Type Department Care Team Description 02/03/2025 9:00 AM CDT Office Visit [facility] Family Medicine [facility] [address] [place] [address] Viridiana Zaidi NP Diabetes (Patient presents for a 3 month follow up diabetes) 02/03/2025 Travel 01/29/2025 Scan [facility] INFO SRVCS Scanned, [facility] 12/31/2024 [employer] Message Enc [facility] Family Medicine [facility] [address] [place] [address] Arnulfo, [facility] Provider 3 mo follow up / annual physical 12/31/2024 Orders Only [facility] [place] [address] [place] [address] Rafaela Alfonso MA 11/12/2024 Telephone [facility] [address] [facility] [address] [place] [address] Viridiana Zaidi NP Orders ([facility]) from Last 3 Months Immunizations Immunization Administration [...] st Contact Info) Description 05/08/2025 9:20 AM DATA MODELER Office Visit [facility] Family [facility] - [place] [address] [facility] [address] [place], [place] [address] Viridiana Zaidi, AUTOMOBILE MECHANIC [address] [place], [place] [id number] Health Maintenance Due Date Last Done Comments Kidney Health Evaluation 1977 Diabetes: Retinopathy Eye Exam 12/17/1995 DTaP, Tdap and Td Vaccines (1 - Tdap) 1996 Hepatitis B Vaccines (1 of 3 - 19+ 3-dose series) 1996 Pneumococcal Vaccine: Pediatrics (0 to 5 Years) and At-Risk Patients (6 to 49 Years) (1 of 2 - PCV) 1996 Lipid Panel 12/04/2024 12/05/2023, 08/0 11/2022, 10/08/2021 Annual Physical 12/10/2024 12/11/2023, 06/24/2021 COVID-19 Vaccine ( season) 2024 05/12/2021, 07/18/2020 Influenza Adult (#1) 2025 Hemoglobin A1C 08/04/2025 02/03/2025, 08/2 , 11/22/2022, Additional history exists Mammogram Screening 08/26/2025 08/26/2024, 03/01/2024, 01/30/2024, Additional history exists Colorectal Cancer Screening Colonoscopy (10 Years) 05/23/2034 05/23/2024 Hepatitis C Completed 10/08/2021 PHQ-2 (Physician [place]) Completed 05/27/2024 Hepatitis A Vaccines Aged Out [...] complication, without long-term current use of insulin ([facility] HHS/HCC) HEMOGLOBIN, GLYCOSYLATED Routine 02/03/2025 Type 2 diabetes mellitus without complication, without long-term current use of insulin ([facility] HHS/[facility]) MG DIAG W FRED RT DIGI Routine [...] HGB A1C 6.7 % [address], [place] 02/03/2025 us Viridiana Zaidi AUTOMOBILE MECHANIC LABORATORY Final Res ult [id number] [address] [facility] [address] [place] [address], * MG DIAG W FRED RT DIGI (08/26/2024 11:14 AM CDT) Anatomical Region Laterality Modality Breast Right Mammography 08/26/2024 11:2 2 AM CDT Impressions 08/26/2024 11:23 AM CDT =====IMPRESSION:===== No mammographic findings suggestive of malignancy ASSESSMENT: ACR BI-RADS 2 - BENIGN FINDING(S) Recommendation: 1: Routine Screening Bilateral Ordered By: LORI BOB Interpreted By: Rob Vera MD, 08/26/2024 11:22 AM Narrative 08/26/2024 11:23 AM CDT [address] [address] EXAMINATION: Digital right diagnostic mammogram with 3-D [...] 166 <200 MG/DL 12/05/2023 3:34 PM CDT [facility] TRIGLYCERIDES 111 <150 MG/DL 12/05/2023 3:34 PM CDT [facility] HDL 67 >40 MG/DL 12/05/2023 3:34 PM CDT [facility] LDL-C 77 <100 MG/DL 12/05/2023 3:34 PM CDT [facility] VLDL CALCULATION 22 5 - 28 MG/DL 12/05/2023 3:34 PM CDT [facility] CHOL/HDL RATIO 2.5 0.0 - 4.0 12/05/2023 3:34 PM CDT [facility] LDL/HDL 1.1 0.41 - 2.13 12/05/2023 3:34 PM CDT [facility] NON HDL CHOLESTEROL 99 <140 MG/DL 12/05/2023 3:34 PM CDT [facility] 12/05/2023 9:24 AM CDT Viridiana Zaidi [employer] MECH[employer] LABORAT[facility] Final Res ult Performing Organization Address [facility]/ZIP Co de Phone Number [facility] [address] [place] [address], * HEPATITIS C ANTIBODY W/RFX TO HCV [...] a test for HCV RNA (test code 56625) is suggested. For additional information please refer to http://education.LiveOps.Traditional Medicinals/faq/ZIQ25q9 (This link is being provided for informational/ educational purposes only.) 10/08/2021 12:5 9 PM CDT 10/08/2021 1:00 PM CDT Narrative [facility] - 10/14/2021 5:13 PM CDT FASTING:YES FASTING: YES Viridiana Zaidi AUTOMOBILE MECHANIC LABORATORY Final Res ult [facility] [address] [address] [id number] from Last 3 Months or Most Recently Relevant to Health Maintenance Additional Health Concerns Infection Onset Date Last Indicated MRSA 11/21/2016 11/21/2016 Insurance [facility] Care Teams Integrative Medicine Physician Relationship Specialty Start Date End Date Viridiana Zaidi NP [address] [place] [address] PCP - General NURSE PRACTITIONER 06/17/21
--- OUTSIDE RECORDS SUMMARY | 2025-02-12 19:42 | XMS_ITS | Encounter Summary ---
Author Organization [facility] Address [facility] [place] [address] Care Team Providers Care Maths Tutor Name Role Phone Viridiana Zaidi MUSHROOM CUTTER Primary Care Provider [phone] [phone] Encounter Details Date Type Department Care Team (Late Contact Info) Description 01/04/2023 [employer] Message Enc [facility] Family Medicine [facility] [address] [facility] [address] [place] [phone] [facility] Provider Reply from Viridiana Social History [...] (Late Contact Info) Description 05/08/2025 9:20 AM MINI LAB OPERATOR Office Visit [facility] Family Medicine [facility] [address] [facility] [address] [place], [place] [address] Viridiana Zaidi NP [address] [place], [place] [phone] documented as of this encounter Visit Diagnoses Not on filedocumented in this encounter Additional Health Concerns Infection Onset Date Last Indicated Resolved Time MRSA 11/21/2016 11/21/2016 documented as of this encounter Care Teams Maths Tutor Relationship Specialty Start Date End Date Viridiana Zaidi NP [address] [place] [address] PCP - General NURSE PRACTITIONER 06/17/21 documented as of this encounter
--- OUTSIDE RECORDS SUMMARY | 2025-02-12 19:42 | XMS_ITS | Patient Health Record ---
Author Organization [facility] Address [address] [facility] [address] [place], [place] [address] Care Team Providers Care Neon Sign Erector Name Role Phone Arnaldo Tuttle DO Unavailable [phone] Elaine Sweeney Unavailable [phone] Allergies No Known Allergies Reason For Referral [...] NEEDED Oral; Duration: 9 Days Active Nystatin-Triamcinolone 943966-8.1 UNIT/GM External; Duration: 15 Days Active Assessments Encounter Date Diagnosis (ICD Code) Assessment Notes Treatment Notes Treatment Clinical Notes Section Notes 01/15/2025 Other Plan Of Treatment No Information Insurance Providers Payer Name Payer Address Payer Phone Subscriber Number Group Number Insured Name Patient Relationship to Insured Coverage Start Date Coverage End Date [facility] [address] [address] [place] [address] [id number] Johanna Dominguez Self - patient is the insured Medical (General) History Medical History History ICD Code Date Unknown Anemia Date Unk nown Diabetes mellitus (CMS/HCC) Date Unknown HTN (hypertension) Date Unknown Hyperlipidemia Surgical History Surgery Date(Month/Year) 2016 Hx breast reduction Com ment: Cem 2013 Hx hysterectomy Comment: Erick
--- OUTSIDE RECORDS SUMMARY | 2025-02-12 19:42 | XMS_ITS | Encounter Summary ---
Author Organization [facility] Address [facility] [place] [address] Care Team Providers Care Applied Behavior Science Specialist Name Role Phone Viridiana Zaidi TELETYPE TECHNICIAN Primary Care Provider [phone] Encounter Details Date Type Department Care Team (Late Contact Info) Description 12/01/2022 [employer] Message Enc [address] [place] [id number] Arnulfo [facility] Provider 1 week f/u Social History [...] (Late Contact Info) Description 05/08/2025 9:20 AM ATHLETIC GEAR CUSTODIAN Office Visit [facility] [address] [facility] [address] [place] [address] Viridiana Zaidi NP [address] [place] [address] documented as of this encounter Visit Diagnoses Not on filedocumented in this encounter Additional Health Concerns Infection Onset Date Last Indicated Resolved Time MRSA 11/21/2016 11/21/2016 documented as of this encounter Care Teams Applied Behavior Science Specialist Relationship Specialty Start Date End Date Viridiana Zaidi NP [address] [place] [address] PCP - General NURSE PRACTITIONER 06/17/21 documented as of this encounter
[2025-02-12 19:47] VITALS: BP 140/83; PULSE 94; RESP 16; TEMP 36.4; O2SAT 100
--- NOTE | 2025-02-12 21:11 | PC.NURSE ---
Pt came to triage desk wanting to leave, pt was encouraged to stay to see the provider. Pe declined. Instructed to return to the ED w/ new or worsening symptoms.
--- OUTSIDE RECORDS SUMMARY | 2025-02-12 22:48 | XMS_ITS | Clinical Summary ---
Author Organization [facility] Address [address] [place] [address] Phone Care Team Providers Care Furnace Stock Inspector Name Role Phone Provider, Unknown Primary Care Provider Unavaila ble Social History Tobacco Use Types Packs/Day Years Used Date Smoking Tobacco: Never Assessed Comments Unknown Sex and Gender Information Value Date Recorded Sex Assigned at Not on file Legal Sex Female 5:24 PM CDT Gender Identity Not on file Sexual Orientation Not on file Plan of Treatment Not on file Care Teams Furnace Stock Inspector Relationship Specialty Start Date End Date Provider, Unknown UNKNOWN PCP - General 10/12/16
--- OUTSIDE RECORDS SUMMARY | 2025-02-12 22:49 | XMS_ITS | Encounter Summary ---
Author Organization [facility] Address [facility] [place] [address] Care Team Providers Care Extermination Supervisor Name Role Phone Viridiana Zaidi SAP CRM DEVELOPER Primary Care Provider [phone] [phone] Encounter Details Date Type Department Care Team (Late Contact Info) Description 09/25/2024 Ritani Message Enc [facility] Family [address] [place] [address] Arnulfo [facility] Provider Sleep study Social History Tobacco [...] (Late Contact Info) Description 05/08/2025 9:20 AM FRENCH POLISHER Office Visit [facility] Family [facility] [address] [facility] [address] [place] [address] Viridiana Zaidi NP [address] [place] [address] documented as of this encounter Visit Diagnoses Not on filedocumented in this encounter Additional Health Concerns Infection Onset Date Last Indicated Resolved Time 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
--- OUTSIDE RECORDS SUMMARY | 2025-02-12 22:50 | XMS_ITS | Clinical Summary ---
Author Organization [facility] [employer] Address [address] [facility] [place] [address] Care Team Providers Care Rubber Moulding Machine Operator Name Role Phone Farhad Fuchs MD Primary Care Provider [phone] Source Comments [facility],non-owned Affiliates and Associated Physician Practices is amultiple site organization consisting of ambulatory clinics and hospital sitesin [place], [place], [place] and [place]. This disclosure is being madepursuant to the Care Everywhere program and may not contain all information available regarding this patient. Last updated 18.[facility] [employer] Allergies Active Allergy Reactions Criticality Noted Date [...] on file Legal Sex Female 6:20 AM PATTERN MAKER PROGRAMER Gender Identity Not on file Sexual Orientation Not on file Last Filed Vital Signs Vital Sign Reading Time Taken Comments Blood Pressure 128/76 03/09/2022 10:42 AM PATTERN MAKER PROGRAMER Pulse 82 01/08/2016 7:54 AM CDT Temperature 36.6 C (97.8 F) 03/09/2022 10:42 AM PATTERN MAKER PROGRAMER Respiratory Rate 16 01/08/2016 7:54 AM CDT Oxygen Saturation 100% 01/08/2016 7:54 AM CDT Inhaled Oxygen Concentration - - Weight 85.1 kg (187 lb 9.6 oz) 03/09/2022 10:42 AM PATTERN MAKER PROGRAMER Height 157.5 cm (5' 2) 03/09/2022 10:42 AM PATTERN MAKER PROGRAMER Body Mass Index 34.31 03/09/2022 10:42 AM PATTERN MAKER PROGRAMER Plan of Treatment Health Maintenance Due Date [...] - 106 mg/dL 01/08/2016 5:06 AM CDT [facility] Sodium 139 136 - 145 mmol/L 01/08/2016 5:06 AM CDT [facility] Potassium 3.8 3.5 - 5.1 mmol/L 01/08/2016 5:06 AM CDT [facility] Chloride 104 98 - 107 mmol/L 01/08/2016 5:06 AM CDT [facility] CO2 28 22 - 31 mmol/L 01/08/2016 5:06 AM CDT [facility] Calcium 8.9 8.5 - 10.1 mg/dL 01/08/2016 5:06 AM CDT [facility] Anion Gap 7 5 - 20 mmol/L 01/08/2016 5:06 AM CDT [facility] BUN 12 7 - 21 mg/dL 01/08/2016 5:06 AM CDT [facility] Creatinine 0.95 0.50 - 1.30 mg/dL 01/08/2016 5:06 AM CDT [facility] eGFR by MDRD >60 >60 mL/min/1.7 3m2 01/08/2016 5:06 AM CDT [facility] eGFR by MDRD >60 >60 mL/min/1.7 3m2 01/08/2016 5:06 AM CDT [facility] Blood BLOOD SPECIMEN / Unknown 01/08/2016 4:02 AM CDT 01/08/2016 4:35 AM CDT Michaela Winters MD LAB - CHEMISTRY ORDERABL ES Final Result [facility] [address] [place] [address] from Last 3 Months or Most Recently Relevant to Health Maintenance Insurance [facility] MEDICAID - OUT OF STATE Advance Directives * Full Code (Latest Code Status on File) Date Activated Date Inactivated Comments 01/07/2016 7:16 PM 01/08/2016 12:15 PM * Full Code Date Activated Date Inactivated Comments 01/07/2016 3:44 PM 01/07/2016 7:16 PM Care Teams Rubber Moulding Machine Operator Relationship Specialty Start Date End Date Farhad Fuchs MD PCP - General 01/15/18
--- OUTSIDE RECORDS SUMMARY | 2025-02-12 22:50 | XMS_ITS | Encounter Summary ---
Author Organization [facility] Address [facility] [place] [address] Care Team Providers Care Clock And Watch Assembler Name Role Phone Viridiana Zaidi MARINE OIL TERMINAL SUPERINTENDENT Primary Care Provider [phone] Encounter Details Date Type Department Care Team (Late Contact Info) Description 12/31/2024 Stackdriver Message Enc [facility] Family [facility] [address] [facility] [address] [place] [phone] Arnulfo [facility] Provider 3 mo follow up / annual [...] (Late Contact Info) Description 05/08/2025 9:20 AM SURGERY TEACHER Office Visit [facility] Family [facility] [address] [facility] [address] [place], [place] [address] Viridiana Zaidi NP [address] [place], [place] [phone] documented as of this encounter Visit Diagnoses Not on filedocumented in this encounter Additional Health Concerns Infection Onset Date Last Indicated Resolved Time MRSA 11/21/2016 11/21/2016 documented as of this encounter Care Teams Clock And Watch Assembler Relationship Specialty Start Date End Date Viridiana Zaidi NP [address] [place] [address] PCP - General NURSE PRACTITIONER 06/17/21 documented as of this encounter
--- OUTSIDE RECORDS SUMMARY | 2025-02-12 22:51 | XMS_ITS | Encounter Summary ---
Author Organization [facility] Address [address] [place] [address] Care Team Providers Care In Flight Refueling Craftsman Name Role Phone Viridiana Zaidi NP Primary Care Provider [phone] Encounter Details Date Type Department Care Team [...] st Contact Info) Description 05/08/2025 9:20 AM TUBE WASHER Office Visit [facility] Family [facility] - [place] [address] [facility] [address] [place], [place] [phone] Viridiana Zaidi NP [address] [place], [place] [phone] documented as of this encounter Visit Diagnoses Not on filedocumented in this encounter Additional Health Concerns Infection Onset Date Last Indicated Resolved Time MRSA 11/21/2016 11/21/2016 documented as of this encounter Care Teams In Flight Refueling Craftsman Relationship Specialty Start Date End Date Viridiana Zaidi NP [address] [place] [address] PCP - General NURSE PRACTITIONER 06/17/21 documented as of this encounter
--- OUTSIDE RECORDS SUMMARY | 2025-02-12 22:52 | XMS_ITS | Encounter Summary ---
Author Organization [facility] Address [address] [place] [address] Care Team Providers Care Die Cutter Operator Name Role Phone Viridiana Zaidi DYEING MACHINE BACK TENDER Primary Care Provider [phone] Encounter Details Date Type Department Care Team (Late st Contact Info) Description 05/30/2024 MyChart Message Enc [facility] Family Medicine [facility] [address] [phone] Viridiana Zaidi NP [address] [place], [place] [phone] Bladder Social History Tobacco Use Types Packs/Day [...] st Contact Info) Description 05/08/2025 9:20 AM WELFARE WORKER Office Visit [facility] Family Medicine [facility] [address] [phone] Viridiana Zaidi NP [address] [place] [address] documented as of this encounter Visit Diagnoses Not on filedocumented in this encounter Additional Health Concerns Infection Onset Date Last Indicated Resolved Time MRSA 11/21/2016 11/21/2016 documented as of this encounter Care Teams Die Cutter Operator Relationship Specialty Start Date End Date Viridiana Zaidi NP [address] [place] [address] PCP - General NURSE PRACTITIONER 06/17/21 documented as of this encounter
--- OUTSIDE RECORDS SUMMARY | 2025-02-12 22:52 | XMS_ITS | Encounter Summary ---
Author Organization [facility] Address [address] [place] [address] Care Team Providers Care Clinical Data Associate Name Role Phone Unavailable Primary Care Provider [...]
--- OUTSIDE RECORDS SUMMARY | 2025-02-12 22:53 | XMS_ITS | Clinical Summary ---
Author Organization [facility] Address [facility] [place] [address] Care Team Providers Care Full Stack Net Developer Name Role Phone Viridiana Zaidi NP Primary Care Provider [phone] Allergies Active Allergy Reactions Criticality Noted Date [...] back to PT and with someone in [place]. Assessment & Plan (12/11/2023 10:44 AM CDT): Referral to PT in [place] placed. Gastroesophageal reflux dise ase, unspecified whether [...] AM CDT): Encourage stress relieving activities. Health technology coach also recommended. Vitamin D deficiency 10/19/2021 [...] Diet and lifestyle changes discussed. Encourage health technology coach as well and personal service representative to help with accountability. Pt's goals are [...] exacerbate snoring and sleep-related problems, such as PROCESS LEAD depressants, especially at bedtime. Microscopic hematuria 07/05/20232023 Elevated liver enzymes 07/05/202312/10 Pelvic pain 07/05/2023 12/11/2023 Sprain of left ankle, unspec ified ligament, subsequent encounter 03/16/2022 12/11/2023 Abdominal pain, unspecified abdominal location 09/07/2021 09/07/2021 Low back pain 06/24/2021 12/11/2023 Macromastia 06/24/2021 12/11/2023 Prediabetes 06/24/2021 12/11/2023 Hyperglycemia 01/31/2017 12/11/2023 Encounters Date Type Department Care Team Description 02/03/2025 9:00 AM CDT Office Visit [facility] [address] [place] [address] Viridiana Zaidi NP Diabetes (Patient presents for a 3 month follow up diabetes) 02/03/2025 Travel 01/29/2025 Scan [facility] SRVCS Scanned, [facility] 12/31/2024 [facility] Message Enc [facility] [address] [place] [address] Arnulfo, [facility] Provider 3 mo follow up / annual physical 12/31/2024 Orders Only [facility] [place] [address] [place] [address] Rafaela Alfonso MA 11/12/2024 Telephone [facility] [address] [facility] [address] [place] [address] Viridiana Zaidi NP Orders ([facility]) from Last [...] st Contact Info) Description 05/08/2025 9:20 AM COMMERCIAL REAL ESTATE MANAGER Office Visit [facility] Family Medicine - [place] [address] [facility] [address] [place], [place] [phone] Viridiana Zaidi, CLINIC CLERK [address] [place], [place] [id number] Health Maintenance Due Date Last Done Comments [...] 05/23/2024 Hepatitis C Completed 10/08/2021 PHQ-2 (Physician [place]) Completed 05/27/2024 Hepatitis A Vaccines Aged Out [...] complication, without long-term current use of insulin ([facility] HHS/HCC) HEMOGLOBIN, GLYCOSYLATED Routine 02/03/2025 Type 2 diabetes mellitus without complication, without long-term current use of insulin ([facility] HHS/[facility]) MG DIAG W FRED RT DIGI Routine [...] 1 62, [place] 02/03/2025 us Viridiana Zaidi CLINIC CLERK LABORATORY Final Res ult [id number] [facility] [address] [place] [address], * MG DIAG W FRED RT DIGI [...] 11:22 AM Narrative 08/26/2024 11:23 AM CDT [address] [address] EXAMINATION: Digital right diagnostic mammogram with 3-D [...] 166 <200 MG/DL 12/05/2023 3:34 PM CDT [facility] TRIGLYCERIDES 111 <150 MG/DL 12/05/2023 3:34 PM CDT [facility] HDL 67 >40 MG/DL 12/05/2023 3:34 PM CDT [facility] LDL-C 77 <100 MG/DL 12/05/2023 3:34 PM CDT [facility] VLDL CALCULATION 22 5 - 28 MG/DL 12/05/2023 3:34 PM CDT [facility] CHOL/HDL RATIO 2.5 0.0 - 4.0 12/05/2023 3:34 PM CDT [facility] LDL/HDL 1.1 0.41 - 2.13 12/05/2023 3:34 PM CDT [facility] NON HDL CHOLESTEROL 99 <140 MG/DL 12/05/2023 3:34 PM CDT [facility] 12/05/2023 9:24 AM CDT Viridiana Zaidi CLINIC CLERK LABORATORY Final Res ult Performing Organization Address [facility]/ZIP Co de Phone Number [facility] [address] [place] [address], * HEPATITIS C ANTIBODY W/RFX TO HCV [...] a test for HCV RNA (test code 37821) is suggested. For additional information please refer to http://education.[employer]/faq/VCW76b7 (This link is being provided for informational/ educational purposes only.) 10/08/2021 12:5 9 PM CDT 10/08/2021 1:00 PM CDT Narrative [facility] - 10/14/2021 5:13 PM CDT FASTING:YES FASTING: YES Viridiana Zaidi CLINIC CLERK LABORATORY Final Res ult [facility] [address] [address] [id number] from Last 3 Months or Most Recently Relevant to Health Maintenance Additional Health Concerns Infection Onset Date Last Indicated MRSA 11/21/2016 11/21/2016 Insurance [facility] Care Teams Full Stack Net Developer Relationship Specialty Start Date End Date Viridiana Zaidi NP [address] [place] [address] PCP - General NURSE PRACTITIONER 06/17/21
--- OUTSIDE RECORDS SUMMARY | 2025-02-12 22:53 | XMS_ITS | Encounter Summary ---
Author Organization [facility] Address [address] [place] [address] Care Team Providers Care Unit Aide Tech Name Role Phone Carson Benavides MD Primary Care Provider [phone] Viridiana Zaidi NP Primary Care Provider [phone] Encounter Details Date Type Department Care Team (Late st Contact Info) Description 09/22/2018 Abstract [facility] CONVERSION [address] [place] [address] , Generic Conversion, Social History Tobacco Use [...] st Contact Info) Description 05/08/2025 9:20 AM EXTRACTOR FILLER Office Visit [facility] Family Medicine - [place] [address] [facility] [address] [place] [phone] Viridiana Zaidi, ANUJA [address] [place], [place] [phone] documented as of this encounter Visit Diagnoses Not on filedocumented in this encounter Additional Health Concerns Infection Onset Date Last Indicated Resolved Time MRSA 11/21/2016 11/21/2016 documented as of this encounter Care Teams Unit Aide Tech Relationship Specialty Start Date End Date Carson Benavides MD [address] [place] [address] PCP - General INTERNAL MEDICINE 08/19/17 06/16/21 Viridiana Zaidi NP [address] [facility] [address] [place] [address] PCP - General NURSE PRACTITIONER 06/17/21 documented as of this encounter
--- OUTSIDE RECORDS SUMMARY | 2025-02-12 22:54 | XMS_ITS | Encounter Summary ---
Author Organization [facility] Address [address] [place] [address] Care Team Providers Care Dispatcher Chief Coal Slurry Name Role Phone Viridiana Zaidi PERFORMANCE ANALYST Primary Care Provider [phone] Encounter Details Date Type Department Care Team (Late st Contact Info) Description 12/12/2023 Adfaceshart Message Enc [facility] Family Medicine [facility] [address] [phone] Viridiana Zaidi NP [address] [place] [address] [place] [address] Anemia Social History Tobacco Use Types [...] st Contact Info) Description 05/08/2025 9:20 AM DE ALCHOLIZER Office Visit [facility] [address] [address] Viridiana Zaidi NP [address] [place] [address] documented as of this encounter Visit Diagnoses Not on filedocumented in this encounter Additional Health Concerns Infection Onset Date Last Indicated Resolved Time MRSA 11/21/2016 11/21/2016 documented as of this encounter Care Teams Dispatcher Chief Coal Slurry Relationship Specialty Start Date End Date Viridiana Zaidi NP [address] [place] [address] PCP - General NURSE PRACTITIONER 06/17/21 documented as of this encounter
--- OUTSIDE RECORDS SUMMARY | 2025-02-12 22:54 | XMS_ITS | Clinical Summary ---
Author Organization [facility] [address] [facility] [address] Address [address] [place] [address] Care Team Providers Care Senior National Account Manager Name Role Phone Unavailable Primary Care [...] back to PT and with someone in [place]. Type 2 diabetes mellitus wit hout complication, [...] Elsewhere: No Location: [facility] Source: EHR Chronic: N Practice ID: [id number] Billable Time: 11:30:00 AM Acute vaginitis 02/08/2017 Overview (10/07/2024): Acute vulvovaginitis;Recorded Elsewhere: No Location: [facility] Source: EHR Chronic: N Practice ID: [id number] Billable Time: 01:00:00 PM Hyperglycemia 01/31/2017 Dysuria 01/13/2017 Overview (10/07/2024): Dysuria;Practice ID: [id number] Itching 10/11/2016 Overview (10/07/2024): Pruritus, unspecified;Recorded Elsewhere: No Location: [facility] Source: EHR Chronic: N Practice ID: [id number] [...] Elsewhere: No Location: [facility] Source: EHR Chronic: N Practice ID: [id number] [...] mental status Altered me ntal status; Comments: [facility] 03/18/2016 - Headache Headache; Commen ts: [facility] 03/18/2016 - 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 Unilateral facial weakness; Comments: [facility] 03/18/2016 - Seizure (HCC) Seizure; Comment s: [facility] 03/18/2016 - Essential hypertension Essential hypertension; Comments: [facility] 03/18/2016 - Memory loss Memory loss; Com ments: [facility] 03/18/2016 - Hypertrophy of tonsils Tonsillar hypertrophy; Comments: [facility] 03/18/2016 - Hematuria Hematuria; Comme nts: [facility] 03/18/2016 - Borderline diabetes mellitus Pre diabetes; Comments: [facility] 03/18/2016 - Family History Medical History Relation Name Comments Colon cancer Mother Relation Name Status Comments Mother Social History Tobacco Use Types Packs/Day Years Used Date Smoking Tobacco: Never Tobacco Cessation:Counseling Given: Not Answered Comments Unknown Sex and Gender Information Value Date Recorded Sex Assigned at Not on file Legal Sex Female 8:37 PM HAND COUNTER Gender Identity Not on file Sexual Orientation [...] - 5.9 % 02/03/2015 10:22 AM CDT [facility] [employer] HISTORICAL RESULTS Comment: [place] [employer] recommends that the goal of therapy should be an A1C hemoglobin of <7%. Reevaluate the treatment regimen in patients with an A1C >8%. 02/03/2015 5:40 AM CDT 02/03/2015 5:59 AM CDT Narrative [facility] HISTORICAL RESULTS - 02/03/2015 10:22 AM CDT Comment In AM Farhad Fuchs MD LAB BLOOD ORDERABLES Final Result Performing Organization Address City/[facility] Co de Phone Number [facility] HISTORICAL RESULTS from Last 3 Months or Most Recently Relevant to Health Maintenance Insurance [facility] [place] [address] [facility] [place] [address]
--- OUTSIDE RECORDS SUMMARY | 2025-02-12 22:54 | XMS_ITS | Clinical Summary ---
Author Organization [facility] Yessenia gilmore Shayy Address [facility] [place] [address] Care Team Providers Care Supervisor Intelligence Analyst Name Role Phone Unavailable Primary Care Provider [...] Data STL ABSTRACTION Provider, Abstract 01/06/2025 Telephone [facility] Oncology and Hematology - [address] [facility] [address] [place] [address] Nils De Oliveira MD labs [...] 157.5 cm (5' 2) 03/19/2024 1:13 PM MANAGER ETHICS Body Mass Index 36.1 03/19/2024 1:13 PM MANAGER ETHICS Plan of Treatment Health Maintenance Due Date [...]
--- OUTSIDE RECORDS SUMMARY | 2025-02-12 22:55 | XMS_ITS | Encounter Summary ---
Author Organization [facility] Address [facility] [place] [address] Care Team Providers Care Piece Worker Name Role Phone Viridiana Zaidi RN CHARGE Primary Care Provider [phone] Encounter Details Date Type Department Care Team (Late Contact Info) Description 01/04/2023 tenKsolar Message Enc [facility] Family Medicine [facility] [address] [facility] [address] [place] [phone] [facility] Provider Reply from Viridiana Social History [...] (Late Contact Info) Description 05/08/2025 9:20 AM GROUND INSTRUCTOR ADVANCED Office Visit [facility] Family Medicine [facility] [address] [facility] [address] [place], [place] [address] Viridiana Zaidi NP [address] [place], [place] [phone] documented as of this encounter Visit Diagnoses Not on filedocumented in this encounter Additional Health Concerns Infection Onset Date Last Indicated Resolved Time MRSA 11/21/2016 11/21/2016 documented as of this encounter Care Teams Piece Worker Relationship Specialty Start Date End Date Viriidana Zaidi NP [address] [place] [address] PCP - General NURSE PRACTITIONER 06/17/21 documented as of this encounter
--- OUTSIDE RECORDS SUMMARY | 2025-02-12 22:56 | XMS_ITS | Encounter Summary ---
Author Organization [facility] Address [address] [place] [address] Care Team Providers Care Computer Programming Manager Name Role Phone Viridiana Zaidi MAGAZINE KEEPER Primary Care Provider [phone] Encounter Details Date Type Department Care Team (Late Contact Info) Description 10/12/2022 MyChart Message Enc [facility] Medical Group [facility] [address] [place], [place] [address] [facility] Provider Air Quality Message Social History [...] st Contact Info) Description 05/08/2025 9:20 AM COMPANY CONTROLLER Office Visit [facility] [address] [facility] [address] [place], [place] [phone] Viridiana Zaidi NP [address] [place] [address] documented as of this encounter Visit Diagnoses Not on filedocumented in this encounter Additional Health Concerns Infection Onset Date Last Indicated Resolved Time MRSA 11/21/2016 11/21/2016 documented as of this encounter Care Teams Computer Programming Manager Relationship Specialty Start Date End Date Viridiana Zaidi NP [address] [place] [address] PCP - General NURSE PRACTITIONER 06/17/21 documented as of this encounter
--- OUTSIDE RECORDS SUMMARY | 2025-02-12 22:56 | XMS_ITS | Encounter Summary ---
Author Organization [facility] Address [facility] [place] [address] Care Team Providers Care Missile Mechanic Name Role Phone Viridiana Zaidi BUSINESS COORDINATOR Primary Care Provider [phone] Encounter Details Date Type Department Care Team (Late Contact Info) Description 12/01/2022 Partnered Message Enc [address] [place] [phone] Arnulfo [facility] Provider 1 week f/u Social History [...] (Late Contact Info) Description 05/08/2025 9:20 AM SUPERVISOR LOCOMOTIVE Office Visit [facility] [address] [facility] [address] [place] [address] Viridiana Zaidi NP [address] [place] [address] [place] [address] documented as of this encounter Visit Diagnoses Not on filedocumented in this encounter Additional Health Concerns Infection Onset Date Last Indicated Resolved Time MRSA 11/21/2016 11/21/2016 documented as of this encounter Care Teams Missile Mechanic Relationship Specialty Start Date End Date Viridiana Zaidi NP [address] [place] [address] PCP - General NURSE PRACTITIONER 06/17/21 documented as of this encounter
== END 2025-02-12 21:19 | disposition left against medical advice (07) ==
LOC: ANHED 22:44
PROVIDERS: PCP Nurse Practitioner
DX: R10.31 Right lower quadrant pain (principal)
CPT/HCPCS: 99199

== ENCOUNTER 2025-02-15 20:55 | Emergency (ER) | payer OTHER, SELFPAY ==
[2025-02-15] VITALS (10 sets, daily range): BP systolic 143–153; BP diastolic 73–90; PULSE 84–105; RESP 15–22; TEMP 36.9; O2SAT 99–100
--- NOTE | ~2025-02-15 | CT_ITS ---
EXAMINATION: CT soft tissue neck chest w DATE: 02/16/2025 00:45 INDICATION: Neck swelling. Wheezing. Congestion. TECHNIQUE: Computed tomography (CT) of the neck and chest was performed with 75 mL Omnipaque 350 intravenous contrast. Automated exposure control and iterative reconstruction technique were employed. The dose-length product was 1119.15 mGy-cm. COMPARISON: Chest CT 09/09/2024 FINDINGS: CT NECK: The adenoids, palatine tonsils, and larynx are normal. There are no pathologically enlarged lymph nodes. There is no visible plaque in the proximal internal carotid arteries. There is mild cervical spondylosis. CT CHEST: There is mild scarring in paraspinal right lower lobe. Calcified bilateral lung nodules are consistent with old granulomatous disease. No pleural effusion. The heart size is normal. No pericardial effusion. There is moderate thoracic spondylosis. IMPRESSION: 1. No etiology for the patient's symptoms. Reviewed, dictated and finalized at location E. LOGY COORDINATOR
--- NOTE | 2025-02-15 22:32 | ED_ITS ---
HPI - URI/Sore Throat General Chief Complaint: Upper Respiratory Infection Stated Complaint: SOB Time Seen by Provider: 02/15/25 21:49 History of Present Illness HPI Narrative: Patient is a 49-year-old female who presents to the ER with a sore throat, congestion, and swelling to her neck. She reports her symptoms started approximately 11 days ago. Patient reports she went to urgent care about a week ago. She reports they called her back because her strep culture negative so she has taken approximately 4-5 days of amoxicillin. Patient reports she has had intermittent wheezing and urgent care ordered an inhaler, which has not helped relieve her symptoms. She reports she believes she has had fevers at night. Patient denies any chest pain, abdominal pain, or acute back pain. She endorses a history of hypertension, diabetes, and hyperlipidemia. Related Data Home Medications ?Medication ?Instructions ?Recorded ?Confirmed ?Last Taken ?Type metoprolol tartrate 100 mg tablet 100 mg PO DAILY 08/1602/06/25 09/08/24 History Allergies Allergy/AdvReac Type Severity Reaction Status Date / Time No Known Allergies Allergy Verified 02/12/25 19:40 Review of Systems 2 Review of Systems: All systems reviewed & are unremarkable except as noted in HPI and below PMFSH Past Medical History Medical History Gastroesophageal reflux disease Hyperlipidemia Genital herpes Hypovitaminosis D Bakers cyst Allergic rhinitis Asthma Hepatic steatosis Pre-diabetes Hypertension Surgical History Surgical History History of tubal ligation History of hysterectomy History of reduction mammoplasty Family History Family History Mother Hypertension Diabetes mellitus Family history of alcoholism Family history of Alzheimer's disease Social History Social History Social History: Surrogate medical decision maker: Mello Dominguez, spouse. Code status: Full code. Smoking status: Never smoker Second hand tobacco smoke exposure: No Alcohol intake: never Substance use: never Substance use type: does not use Do You Feel Safe in your Home?: Yes Lack of Transportation: No Lack of Food: Never True Current Housing: I Have Housing Concerned About Future Housing: No Difficulty Paying Gas/Electric Bills: No Difficulty Paying for Meds: No Currently Unemployed: No Education: Associate Degree Difficulty w/ Childcare or Family Care: No Living arrangements: with family Additional living arrangements comments: Lives with family in [place]. Additional occupation/education comments: [employer] in [place]. Spiritual care concerns: No Exam 2 Narrative: GENERAL: Well appearing, ill-nourished, non-toxic, in no acute distress. HEAD: Normocephalic, atraumatic. No redness or swelling in throat NECK: Supple. + cervical adenopathy bilaterally RESPIRATORY: Airway patent, respirations nonlabored. Clear to auscultation bilaterally, mild wheezing. CARDIOVASCULAR: Regular rate and rhythm without murmurs, rubs, or gallops. Peripheral pulses 2+ and equal bilaterally. ABDOMINAL: Soft, nontender, nondistended, no hepatosplenomegaly. Normoactive BS. MUSCULOSKELETAL: Moves all extremities. Strength/ROM intact without gross deformities. SKIN: Warm, dry, normal color. No rashes. NEURO: A&O X3. Speech clear. Cranial nerves II-XII intact. No ataxic movements. PSYCHIATRIC: Appropriate mood and affect. Normal interaction. Course Vital Signs Vital signs: Vital Signs Temperature 36.9 C 02/15/25 20:58 Pulse Rate 105 H 02/15/25 20:58 Respiratory Rate 22 H 02/15/25 20:58 Blood Pressure 153/90 H 02/15/25 20:58 Pulse Oximetry 100 02/15/25 20:58 Oxygen Delivery Room Air 02/15/25 20:58 Temperature 36.9 C 02/15/25 20:58 Pulse Rate 97 02/16/25 01:30 AMMONIA TECHNICIAN Respiratory Rate 19 02/16/25 01:30 AMMONIA TECHNICIAN Blood Pressure 120/63 02/16/25 01:00 AMMONIA TECHNICIAN Pulse Oximetry 99 02/16/25 01:30 AMMONIA TECHNICIAN Oxygen Delivery Room Air 02/15/25 21:16 MDM - URI/Sore Throat MDM Narrative Medical decision making narrative: Patient is a 49-year-old female who presents to the ER with a sore throat, congestion, and swelling to her neck. She reports her symptoms started approximately 11 days ago. Patient reports she went to urgent care about a week ago. She reports they called her back because her strep culture negative so she has taken approximately 4-5 days of amoxicillin. Patient reports she has had intermittent wheezing and urgent care ordered an inhaler, which has not helped relieve her symptoms. She reports she believes she has had fevers at night. Patient denies any chest pain, abdominal pain, or acute back pain. She endorses a history of hypertension, diabetes, and hyperlipidemia. Labs Ordered: CBC, CMP, strep, mono test, COVID/flu/RSV, lactic acid Imaging Ordered: CT soft tissue neck and chest Medications Ordered: Duo nebs, Toradol 15 mg IV, Decadron 10 mg IV, 1 L normal saline IV bolus Patient has chosen to refuse further care or wait for her CT scan results. Risks of an incomplete evaluation and treatment were discussed with the patient, including potential for or permanent disability. Patient seems to understand these risks, but still desires to refuse further care. Patient recommended to follow up with PCP in the next possible interval. Specifically, patient was told they can return to the ED at any time to resume care. Differential Diagnosis Differential diagnosis: Likely upper respiratory infection, viral infection, bronchitis and influenza Lab Data Attestation: I reviewed the patient's lab results. 02/15/25 23:34 02/15/25 23:34 Labs: Lab Results 02/15/25 Range/Units 23:34 WBC 7.8 (4.5-10.0) K/mm3 RBC 3.70 L (4.2-5.4) M/mm3 Hgb 11.0 L (12.0-15.0) g/dL Hct 34.0 L (37.0-47.0) % MCV 91.9 (80-100) fl MCH 29.7 (26-34) pg MCHC 32.4 (32-36) g/dl RDW 12.6 (11.5-14.5) % Plt Count 349 (150-375) k/mm3 MPV 9.3 (7.4-10.4) fl Immature Gran % (Auto) 0.3 (0-0.5) % Neut % (Auto) 63.2 (45.5-73.1) % Lymph % (Auto) 29.0 (18.3-44.2) % [place] % (Auto) 7.0 (2.6-8.5) % Eos % (Auto) 0.1 (0-4.4) % Baso % (Auto) 0.4 (0.2-1.2) % Lymph # (Auto) 2.27 (0.9-3.2) K/mm3 [place] # (Auto) 0.6 (0.1-0.6) K/mm3 Eos # (Auto) 0.0 (0-0.3) K/mm3 Baso # (Auto) 0.0 (0.0-0.1) K/mm3 Abs Immat Gran (auto) 0.02 (0.00-0.031) K/mm3 Absolute Neuts (auto) 5.0 (1.3-6.7) K/mm3 Absolute Nucleated RBC 0.000 (0.0-0.012) K/mm3 Nucleated RBC % 0.0 (0.0-0.2) % Sodium 138 (137-145) mmol/L Potassium 4.3 (3.4-5.0) mmol/L Chloride 106 (98-107) mmol/L Carbon Dioxide 22 (22-30) mmol/L Anion Gap 10 (4-12) mmol/L BUN 10 (7-17) mg/dL Creatinine 0.62 L (0.7-1.0) mg/dL Estim Creat Clear Calc 103 ml/min Estimated GFR > 60 (59 - ) Glucose 197 H (65-110) mg/dL Lactic Acid 1.6 (0.7-2.0) mmol/L Calcium 9.3 (8.4-10.2) mg/dL Total Bilirubin 0.3 (0.2-1.3) mg/dL AST 32 (14-36) U/L ALT 41 H (6-35) U/L Alkaline Phosphatase 101 (38-126) U/L Total Protein 8.4 H (6.3-8.2) g/dL Albumin 4.5 (3.5-5.1) g/dL Monoscreen Negative (Negative) Influenza A (RT-PCR) Negative (Negative) Influenza B (RT-PCR) Negative (Negative) RSV (RT-PCR) Negative (Negative) SARS-CoV-2 RNA (RT-PCR) Negative (Negative) Group A Strep (PCR) Not detected (Negative) Discharge Plan Discharge Clinical Impression: Acute sore throat, Adenopathy, cervical Patient Disposition: Elopement After Seen by [facility] Patient Language: Belarusian Prescriptions: No Action ibuprofen 600 mg tablet 600 mg PO Q6H PRN (Reason: pain) Qty: 30 0RF promethazine-DM 6.25-15 mg/5 mL syrup 5 ml PO Q4-6H PRN (Reason: cough) Qty: 120 0RF prednisone 20 mg tablet 40 mg PO DAILY 5 Days Qty: 10 0RF albuterol sulfate 90 mcg/actuation HFA aerosol inhaler 2 puff INHALATION QID PRN (Reason: shortness of breath or wheezing) Qty: 8.5 0RF ipratropium bromide 21 mcg (0.03 %) spray,non-aerosol 2 spray NASAL TID PRN (Reason: nasal drainage) Qty: 30 0RF Rx Instructions: administer into each nostril amoxicillin 500 mg tablet 500 mg PO Q12H Qty: 20 0RF metoprolol tartrate 100 mg tablet 100 mg PO DAILY atorvastatin 20 mg tablet 20 mg PO DAILY Qty: 90 1RF metformin 500 mg tablet 500 mg PO BID Qty: 120 1RF amlodipine 10 mg tablet See Rx Instructions .ROUTE .COMPLEX Qty: 90 1RF Dose Instruction: TAKE 1 TABLET BY MOUTH DAILY Rx Instructions: TAKE 1 TABLET BY MOUTH DAILY Follow-up/Referrals: Dyan,MARC Montgomery [Primary Care Provider, Unknown]
[2025-02-15] MEDS: dexAMETHasone SOD PHOS INJ 10 MG/ML 1 ML VIAL IV PUSH (23:23)
[2025-02-15] MEDS: KETOROLAC 15 MG/ML VIAL (*BKC) IV PUSH (23:23)
[2025-02-15] MEDS: SODIUM CHLORIDE 0.9% IV 1,000 ML 999 ML IV CONT (23:24)
[2025-02-15 23:44] LABS: Hematocrit 34.0 % (37.0-47.0); Hemoglobin 11.0 g/dL (12.0-15.0); Immature Granulocyte Percent A 0.3 % (0-0.5); Lymphocytes Absolute Auto 2.27 K/mm3 (0.9-3.2); Mean Corpuscular HGB Conc 32.4 g/dl (32-36); Mean Corpuscular Hemoglobin 29.7 pg (26-34); Mean Corpuscular Volume 91.9 fl (80-100); Nucleated Red Blood Cells Absolute Auto 0.000 K/mm3 (0.0-0.012); Nucleated Red Blood Cells Perc 0.0 % (0.0-0.2); Platelet Count Result 349 k/mm3 (150-375); Red Blood Count 3.70 M/mm3 (4.2-5.4); White Blood Count 7.8 K/mm3 (4.5-10.0)
[2025-02-16 00:02] LABS: Alanine Aminotransferase 41 U/L (6-35); Albumin Level 4.5 g/dL (3.5-5.1); Alkaline Phosphatase 101 U/L (38-126); Anion Gap 10 mmol/L (4-12); Aspartate Amino Transferase 32 U/L (14-36); Bilirubin,Total 0.3 mg/dL (0.2-1.3); Blood Urea Nitrogen 10 mg/dL (7-17); Calcium 9.3 mg/dL (8.4-10.2); Carbon Dioxide 22 mmol/L (22-30); Chloride 106 mmol/L (98-107); Estimated CRCL calculation 103 ml/min; Estimated Glomerular Filt Rate > 60; Glucose 197 mg/dL (65-110); Potassium 4.3 mmol/L (3.4-5.0); Sodium 138 mmol/L (137-145); Total Protein 8.4 g/dL (6.3-8.2)
[2025-02-16 00:08] LABS: Strep Group A RT-PCR NOT DETECTED (Negative)
[2025-02-16 00:21] LABS: Influenza A QL RT-PCR Negative (Negative); Influenza B QL RT-PCR Negative (Negative); RSV RNA, RT-PCR Negative (Negative); SARS-CoV-2 RNA PCR Negative (Negative)
[2025-02-16] MEDS: IPRATROPIUM 0.5 MG/ALBUTEROL SULFATE 2.5 MG (BASE) AMPUL.NEB 3 ML INHALATION (00:50)
[2025-02-16 01:00] VITALS: BP 120/63; PULSE 95; RESP 20; O2SAT 98
[2025-02-16 01:25] LABS: Negative Monotest Control Negative (Negative); Positive Monotest Control Positive (Positive)
[2025-02-16 01:30] VITALS: PULSE 97; RESP 19; O2SAT 99
--- NOTE | 2025-02-16 03:32 | PC.NURSE ---
Pt called out stating she wants to leave. This RN informed pt of risks of leaving and educated pt on importance of waiting for scan results. ED INVESTMENT SALES ASSISTANT notified. Pt signed AMA form. Pt refused vitals. Pt also instructed to continue taking medications and to return to the ED if symptoms worsen. Pt ambulated to exit using a steady gait and in NAD.
== END 2025-02-16 03:27 | disposition left against medical advice (07) ==
PROVIDERS: Emergency Provider Registered Nurse; PCP Nurse Practitioner
DX: J02.9 Acute pharyngitis, unspecified (principal); R59.9 Enlarged lymph nodes, unspecified; Z20.822 Contact with and (suspected) exposure to COVID-19; I10 Essential (primary) hypertension; E78.5 Hyperlipidemia, unspecified; E11.9 Type 2 diabetes mellitus without complications; E55.9 Vitamin D deficiency, unspecified; J45.909 Unspecified asthma, uncomplicated; K21.9 Gastro-esophageal reflux disease without esophagitis; Z90.710 Acquired absence of both cervix and uterus; Z79.899 Other long term (current) drug therapy; Z79.84 Long term (current) use of oral hypoglycemic drugs
CPT/HCPCS: 36415; 70491; 71260; 80053; 83605; 85025; 86308; 87637; 87651; 94640; 96361; 96374; 96375; 99284; J1100; J1885; J7030; Q9967